=== PATIENT | female | born 1960 | race African-American/Black ===

== ENCOUNTER → 2018-07-08 | Outpatient (CLI) | payer OTHER ==
--- NOTE | 2018-07-09 14:29 | RADIOLOGY REPORT (SQ) ---
EXAM DESCRIPTION: PET CT SKULL/THIGH COMPLETED DATE/TIME: 07/08/2018 8:17 pm REASON FOR STUDY: R91.8 OTHER NONSPECIFIC ABNORMAL FINDING OF LUNG FIELD R91.8 OTHER NONSPECIFIC AB NORMAL FINDING OF LUNG FIELD COMPARISON: Two-view chest 09/10/2015 Report from [facility] CT lung screening 06/26/2018 RADIONUCLIDE AND DOSE: 11.2 mCi F18 FDG The route of agent administration: Intravenous FASTING BLOOD SUGAR: 103 mg/dl CONTRAST TYPE AND DOSE: No CT contrast given. TECHNIQUE: Blood glucose level was verified. Above dose of FDG was injected intravenously. 2-D seg mented attenuation correction images were obtained from the base of the skull to the midthighs. Nonc ontrast CT images were obtained for attenuation correction and fusion with emission images. CT image s were performed without oral or intravenous contrast and are not sensitive for parenchymal lesions. A series of overlapping emission PET images were obtained. Images reviewed and manipulated at [facility] work station by the radiologist. Images stored on PACS. LIMITATIONS: None. FINDINGS: HEAD AND NECK: No areas of abnormal metabolic activity in the soft tissues of the head and neck. CHEST: In the lateral segment right middle lobe, a 2.6 x 2.4 cm spiculated soft tissue density mass i s present highly suspicious for malignancy. The lateral segmental bronchus of the right middle lobe abuts the mass. This mass has SUV of 3.8, suspicious for malignancy. Subcentimeter nodules in the right lung apex on axial images 57-60 are non metabolic. Remainder of the lung parenchyma exhibits changes of obstructive disease. No pleural effusion. No p neumothorax. Right paratracheal 1.5 x 1.2 cm lymph node axial image 57 with SUV of 2. Right paratracheal/precarinal lymph node 1.9 x 1.1 cm axial image 63 with SUV of 2. No hypermetabolic lesion is identified along the cervical esophagus. ABDOMEN AND PELVIS: No areas of abnormal metabolic activity in the abdomen or pelvis. Expected physi ologic activity is present in the genitourinary system and bowel. PROXIMAL LOWER EXTREMITIES: No areas of abnormal metabolic activity in the soft tissues of the lower extremities. BONES: No abnormal metabolic activity in the visualized skeleton. ADDITIONAL CT FINDINGS: Calcified right carotid bifurcation. Bilateral maxillary and ethmoid sinus a ir-fluid levels from sinusitis. Bilateral renal hilar arterial vascular calcifications OTHER: Liver background activity 2.6 SUV. Blood pool background activity 1.7 SUV IMPRESSION: Malignant appearing spiculated mass lateral segment right middle lobe with SUV of 3.8. Lateral segment right middle lobe bronchus abuts the mass. Enlarged right paratracheal lymph nodes with low-grade metabolic uptake worrisome for tumor involveme nt TECHNICAL DOCUMENTATION: JOB ID: [id number] [employer]- All Rights Reserved Reading location - IP/workstation name: [email or web address]
== END ==
LOC: RAD 17:37
PROVIDERS: ATTEND Internal Medicine Medical Oncology
DX: R91.8 Other nonspecific abnormal finding of lung field (principal); R59.9 Enlarged lymph nodes, unspecified; K22.9 Disease of esophagus, unspecified
CPT/HCPCS: 78815; A9552

== ENCOUNTER 2018-07-25 09:32 | Day surgery (SDC) | payer OTHER ==
[2018-07-25 10:17] LABS: HEMATOCRIT 42.6 % (36.0-47.0); MEAN CORPUSCULAR HEMOGLOBIN 35.1 pg (27.0-33.4); MEAN CORPUSCULAR HGB CONC 35.1 g/dL (32.0-36.0); MEAN CORPUSCULAR VOLUME 100 fl (80-97); PLATELET COUNT 234 10^3/uL (150-450); RED BLOOD COUNT 4.26 10^6/uL (3.72-5.28); RED CELL DISTRIBUTION WIDTH 14.2 % (11.5-14.0); WHITE BLOOD COUNT 4.6 10^3/uL (4.0-10.5)
[2018-07-25 10:30] LABS: INTERNATIONAL RATION (INR) 0.91; PROTHROMBIN TIME 12.7 SEC (11.4-15.4)
[2018-07-25 10:36] LABS: BLOOD UREA NITROGEN 11 mg/dL (7-20)
[2018-07-25] MEDS ORDERED: FENTANYL CITRATE INJ/PF 100 MCG/2 ML AMPUL ONE (11:02)
[2018-07-25] MEDS ORDERED: MIDAZOLAM 2 MG/2 ML INJ ONE (11:02)
--- NOTE | 2018-07-25 12:39 | RADIOLOGY REPORT (SQ) ---
EXAM DESCRIPTION: CHEST SINGLE VIEW COMPLETED DATE/TIME: 07/25/2018 12:28 pm REASON FOR STUDY: ABNORMAL FINDING OF LUNG FIELD- POST BIOPSY COMPARISON: 07/08/2018 EXAM PARAMETERS: NUMBER OF VIEWS: One view. TECHNIQUE: Single frontal radiographic view of the chest acquired. RADIATION DOSE: NA LIMITATIONS: None. FINDINGS: LUNGS AND PLEURA: Trace right apical pneumothorax measuring 4 mm maximally. Unchanged rig ht perihilar mass. No new effusion. No new focal airspace disease. MEDIASTINUM AND HILAR STRUCTURES: No masses. Contour normal. HEART AND VASCULAR STRUCTURES: Heart normal in size. Normal vasculature. BONES: No acute findings. HARDWARE: None in the chest. OTHER: No other significant finding. IMPRESSION: Trace right apical pneumothorax post right middle lobe biopsy. TECHNICAL DOCUMENTATION: JOB ID: [id number] [employer]- All Rights Reserved Reading location - IP/workstation name: [email or web address]
--- NOTE | 2018-07-25 14:03 | RADIOLOGY REPORT (SQ) ---
EXAM DESCRIPTION: CT BIOPSY LUNG/MEDIASTINUM; CT NEEDLE PLACEMENT COMPLETED DATE/TIME: 07/25/2018 1:08 pm REASON FOR STUDY: ABNORMAL FINDING OF LUNG FIELD; ABNORMAL FINDING OF LUNG FIELD, LUNG BIOPSY R91.8 COMPARISON: None. TECHNIQUE: CT guided biopsy of the right middle lobe perihilar nodule performed with conscious sedat ion. CT Fluoroscopy Time: 47.[address] scanners at this facility use dose modulation, iterative reconstruction, and/or weight based d osing when appropriate to reduce radiation dose to as low as reasonably achievable (ALARA). [facility]: Dose Right [facility]: CareDose [facility]: Dose Right [facility]: Teradose 4D [facility]: Patient Feed RADIATION DOSE: mGy. FINDINGS: After obtaining informed consent and explaining the risks and benefits of conscious sedati on,the patient agreed to the procedure. Prior to the procedure, a time out was performed to verify th e patient's identity and planned procedure. IV sedation was administered and physician direction by the registered nurse using 1 milligrams of Ve rsed and 50 micrograms of fentanyl, for conscious sedation. Physiologic monitoring was provided befor e, during, and after sedation. The total sedation time was 30 minutes. Documentation face to face time, the performing proceduralist, spent monitoring the patient: [address] scanning was performed to localize the percutaneous site for the biopsy approach. After sterile skin prep and local lidocaine for skin and deep tissue anesthesia, a coaxial biopsy nee dle was used to obtain multiple cores of tissue of the right middle lobe mass. Additional imaging wa s obtained with the biopsy trough across the lesion of interest. The biopsy tissue was submitted to t he lab in formalin. There were no immediate complications. Completion chest x-rays were obtained. Pathology is pending at the time of dictation. IMPRESSION: CT GUIDED BIOPSY OF THE RIGHT MIDDLE LOBE MASS PERFORMED WITHOUT IMMEDIATE COMPLICATION. PATHOLOGY PENDING. COMMENT: Quality ID [id number]: Final reports for procedures using fluoroscopy that document radiation exp osure indices, or exposure time and number of fluorographic images (if radiation exposure indices are not available) Patient medication list reviewed: Yes- Quality ID# [id number]:Eligible professional attests to documenting i n the medical record they obtained, updated, or reviewed the patient's current medications.. TECHNICAL DOCUMENTATION: JOB ID: [id number] Quality ID# [id number]: Final reports with documentation of one or more dose reduction techniques (e.g., Aut omated exposure control, adjustment of the mA and/or kV according to patient size, use of iterative r econstruction technique) 2010 [employer]- All Rights Reserved Reading location - IP/workstation name: [email or web address]
[2018-07-25] MEDS ORDERED: ACETAMINOPHEN 325 MG TABLET ONE (14:10)
[2018-07-25] MEDS ORDERED: ACETAMINOPHEN 325 MG TABLET PO ONE (14:30)
--- NOTE | 2018-07-25 14:45 | RADIOLOGY REPORT (SQ) ---
EXAM DESCRIPTION: CHEST SINGLE VIEW COMPLETED DATE/TIME: 07/25/2018 2:37 pm REASON FOR STUDY: ABNORMAL FINDING OF LUNG FIELD- POST BIOPSY (2 HR FILM) COMPARISON: Same day radiograph EXAM PARAMETERS: NUMBER OF VIEWS: One view. TECHNIQUE: Single frontal radiographic view of the chest acquired. RADIATION DOSE: NA LIMITATIONS: None. FINDINGS: LUNGS AND PLEURA: Decreased conspicuity of previously seen trace apical pneumothorax. No new effusion or airspace disease. MEDIASTINUM AND HILAR STRUCTURES: Stable. HEART AND VASCULAR STRUCTURES: Stable. BONES: No acute findings. HARDWARE: None in the chest. OTHER: No other significant finding. IMPRESSION: No significant pneumothorax post right lung biopsy. TECHNICAL DOCUMENTATION: JOB ID: [id number] [employer]- All Rights Reserved Reading location - IP/workstation name: [email or web address]
[2018-07-25 15:04] VITALS: BP 103/68
== END 2018-07-25 15:00 | disposition home or self-care (01) ==
LOC: RAD 09:32
PROVIDERS: ATTEND Internal Medicine Pulmonary Disease
DX: R91.8 Other nonspecific abnormal finding of lung field (principal); Z79.51 Long term (current) use of inhaled steroids; Z79.899 Other long term (current) drug therapy; F17.210 Nicotine dependence, cigarettes, uncomplicated; J44.9 Chronic obstructive pulmonary disease, unspecified; R13.19 Other dysphagia; R05 Cough
CPT/HCPCS: 36415; 84520; 82565; 85027; 85610; 85730; 88305 ×2; 71045; 77012; 32405; J2250; J3010

== ENCOUNTER → 2018-09-16 | Outpatient (CLI) | payer OTHER ==
--- NOTE | 2018-09-17 09:19 | RADIOLOGY REPORT (SQ) ---
EXAM DESCRIPTION: PET CT SKULL/THIGH COMPLETED DATE/TIME: 09/16/2018 9:08 pm REASON FOR STUDY: (C34.90)MALIGNANT NEOPLASM OF UNSP PART OF UNSP BRONCHUS OR LUNG C34.90 MALIGNANT NEOPLASM OF UNSP PART OF UNSP BRONCHUS OR L COMPARISON: 07/08/2018. RADIONUCLIDE AND DOSE: 10 mCi F18 FDG The route of agent administration: Intravenous FASTING BLOOD SUGAR: 115 mg/dl CONTRAST TYPE AND DOSE: No CT contrast given. TECHNIQUE: Blood glucose level was verified. Above dose of FDG was injected intravenously. 2-D seg mented attenuation correction images were obtained from the base of the skull to the midthighs. Nonc ontrast CT images were obtained for attenuation correction and fusion with emission images. CT image s were performed without oral or intravenous contrast and are not sensitive for parenchymal lesions. A series of overlapping emission PET images were obtained. Images reviewed and manipulated at [facility] work station by the radiologist. Images stored on PACS. LIMITATIONS: None. FINDINGS: HEAD AND NECK: No areas of abnormal metabolic activity in the soft tissues of the head and neck. CHEST: Spiculated mass in the right middle lobe currently measures 2.1 x 2.5 cm, prior measurement 2. 4 x 2.6 cm. Mean SUV 1.98. Prior value 3.8. The subcentimeter nodule in the right upper lobe (axia l series 3, image 57) is unchanged and is not hypermetabolic. The right paratracheal lymph node (axial series 3, image 58) currently measures 0.8 x 1.4 cm with florencio or measurement 1.2 x 1.5 cm. Mean SUV 1.4 with prior value 2.0. The lower right paratracheal lymph node (axial series 3, image 64) currently measures 0.9 x 1.2 cm. Prior measurement 1.1 x 1.9 cm. Mean SUV 1.93. Prior value 2.0. ABDOMEN AND PELVIS: No areas of abnormal metabolic activity in the abdomen or pelvis. Expected physi ologic activity is present in the genitourinary system and bowel. PROXIMAL LOWER EXTREMITIES: No areas of abnormal metabolic activity in the soft tissues of the lower extremities. BONES: No abnormal metabolic activity in the visualized skeleton. ADDITIONAL CT FINDINGS: Fluid in the maxillary sinuses. Coronary artery calcifications. Small umbil ical hernia containing fat. No additional significant findings on the noncontrast CT images. OTHER: Background blood pool activity mean SUV 1.83. Background liver activity mean SUV 2.21. No ot her significant findings. IMPRESSION: 1. INTERVAL IMPROVEMENT. THE MASS IN THE RIGHT MIDDLE LOBE AND THE RIGHT PARATRACHEAL LYMPH NODES APARICIO VE DECREASED IN SIZE AND METABOLIC ACTIVITY HAS ALSO DECREASED. NO NEW FINDINGS. 2. NO OTHER AREAS OF ABNORMAL ACTIVITY. INCIDENTAL CT FINDINGS ABOVE. TECHNICAL DOCUMENTATION: JOB ID: [id number] [employer]- All Rights Reserved Reading location - IP/workstation name: [email or web address]
== END ==
LOC: RAD 16:06
PROVIDERS: ATTEND Internal Medicine Medical Oncology
DX: C34.90 Malignant neoplasm of unspecified part of unspecified bronchus or lung (principal)
CPT/HCPCS: 78815; A9552

== ENCOUNTER 2018-10-06 17:52 | Emergency (ER) | payer OTHER ==
[2018-10-06] MEDS ORDERED: OXYCODONE HCL IR 5 MG TABLET PO ONE (18:12)
--- NOTE | 2018-10-06 18:15 | ER Document Report ---
ED Medical Screen (RME) - General Chief Complaint: Shortness Of Breath Stated Complaint: COUGH,BODY ACHES Time Seen by Provider: 10/06/18 18:03 Primary Care Provider: NIYAH DENSON MD [Primary Care Provider] - Follow up as needed Mode of Arrival: Ambulatory Information source: Patient Notes: Patient presents to the emergency department with complaints of severe pain. Reports being treated for lung cancer. Had a chemo treatment a few weeks ago. Oncologist is Dr. Denson. Patient is very tearful reports she has had joint pain leg pain shoulder pain no complaints of fever vomiting diarrhea. Reports increased cough. She reports that she is been taking a lot of extra strength Tylenol recently. I have greeted and performed a rapid initial assessment of this patient. A comprehensive ED assessment and evaluation of the patient, analysis of test results and completion of the medical decision making process will be conducted by additional ED providers. Dictation of this chart was performed using voice recognition software; therefore, there may be some unintended grammatical errors. TRAVEL OUTSIDE OF THE [place] IN LAST 30 DAYS: No - Related Data Allergies/Adverse Reactions: aspirin [Aspirin] Allergy (Verified 10/06/18 17:54) NSAIDS (Non-Steroidal Anti-Inflamma [Nsaids] Allergy (Verified 10/06/18 17:54) Penicillins Allergy (Verified 10/06/18 17:54) Past Medical History - Past Medical History Cardiac Medical History: Reports: Hx Hypertension Denies: Hx Coronary Artery Disease, Hx Heart Attack Pulmonary Medical History: Reports: Hx Asthma, Hx Bronchitis, Hx COPD, Hx Pneumonia Neurological Medical History: Denies: Hx Cerebrovascular Accident, Hx Seizures Renal/ Medical History: Denies: Hx Peritoneal Dialysis Musculoskeltal Medical History: Reports Hx Arthritis Past Surgical History: Reports: Hx Tubal Ligation - Immunizations Hx Diphtheria, Pertussis, Tetanus Vaccination: Yes History of Influenza Vaccine for 01/2017 - 06/2017 Season: No Physical Exam - Vital signs Vitals: Temp Pulse Resp BP Pulse Ox 98.3 F 114 H 24 H 151/113 H 90 L 10/06/18 18:01 10/06/18 18:01 10/06/18 18:01 10/06/18 18:01 10/06/18 18:01 Course - Vital Signs Vital signs: Temp Pulse Resp BP Pulse Ox 98.3 F 114 H 24 H 151/113 H 90 L 10/06/18 18:01 10/06/18 18:01 10/06/18 18:01 10/06/18 18:01 10/06/18 18:01 Doctor's Discharge - Discharge Referrals: NIYAH DENSON MD [Primary Care Provider] - Follow up as needed
--- NOTE | 2018-10-06 18:45 | RADIOLOGY REPORT (SQ) ---
EXAM DESCRIPTION: CHEST 2 VIEWS COMPLETED DATE/TIME: 10/06/2018 6:30 pm REASON FOR STUDY: lung cancer, increased cough COMPARISON: 07/25/2018 EXAM PARAMETERS: NUMBER OF VIEWS: two views TECHNIQUE: Digital Frontal and Lateral radiographic views of the chest acquired. RADIATION DOSE: NA LIMITATIONS: none FINDINGS: LUNGS AND PLEURA: There is diffuse bilateral interstitial pulmonary opacity and emphysemat ous change. A right perihilar mass is not well appreciated by radiograph. MEDIASTINUM AND HILAR STRUCTURES: No masses or contour abnormalities. HEART AND VASCULAR STRUCTURES: Heart normal size. No evidence for failure. BONES: No acute findings. HARDWARE: None in the chest. OTHER: There has been interval placement of a right chest port catheter, which is positioned with wha t appears to be redundant catheter tubing in the right internal jugular vein and tip projecting over the brachiocephalic vein. IMPRESSION: 1. There is diffuse bilateral interstitial pulmonary opacity and emphysematous change. A right perihilar mass is not well appreciated by radiograph. No acutely superimposed focal airspace opacity. 2. There has been interval placement of a right chest port catheter, which is positioned with what ap pears to be redundant catheter tubing in the right internal jugular vein and tip projecting over the brachiocephalic vein. TECHNICAL DOCUMENTATION: JOB ID: [id number] [employer]- All Rights Reserved Reading location - IP/workstation name: [email or web address]
[2018-10-06 18:57] LABS: HEMATOCRIT 41.6 % (36.0-47.0); HEMOGLOBIN 14.4 g/dL (12.0-15.5); MEAN CORPUSCULAR HEMOGLOBIN 33.6 pg (27.0-33.4); MEAN CORPUSCULAR HGB CONC 34.7 g/dL (32.0-36.0); MEAN CORPUSCULAR VOLUME 97 fl (80-97); PLATELET COUNT 193 10^3/uL (150-450); RED BLOOD COUNT 4.29 10^6/uL (3.72-5.28); RED CELL DISTRIBUTION WIDTH 16.2 % (11.5-14.0); WHITE BLOOD COUNT 18.7 10^3/uL (4.0-10.5)
[2018-10-06] MEDS ORDERED: RINGERS SOLUTION,LACTATED 1,000 ML IV ONE (18:58)
[2018-10-06 19:11] LABS: INTERNATIONAL RATION (INR) 0.94; PROTHROMBIN TIME 12.6 SEC (11.4-15.4)
[2018-10-06 19:13] LABS: ABSOLUTE LYMPHOCYTES# (MANUAL) 7.9 10^3/uL (0.5-4.7); ABSOLUTE MONOCYTES # (MANUAL) 0.6 10^3/uL (0.1-1.4); BASOPHILS % (MANUAL) 0 % (0-2); EOSINOPHILS % (MANUAL) 0 % (0-6); LYMPHOCYTES % (MANUAL) 42 % (13-45); MONOCYTES % (MANUAL) 3 % (3-13); SEGMENTED NEUTROPHILS % (MAN) 55 % (42-78); TOTAL CELLS COUNTED 100
[2018-10-06 19:14] LABS: ANISOCYTOSIS 1+; PLATELET COMMENT ADEQUATE; TOXIC GRANULATION SLIGHT; TOXIC VACUOLATION PRESENT
[2018-10-06] MEDS ORDERED: AZITHROMYCIN INJ 500 MG VIAL IV ONE (19:28)
[2018-10-06] MEDS ORDERED: CEFTRIAXONE INJ 1000 MG VIAL IV ONE (19:28)
--- NOTE | 2018-10-06 19:32 | ER Document Report ---
ED General - General Chief Complaint: Shortness Of Breath Stated Complaint: COUGH,BODY ACHES Time Seen by Provider: 10/06/18 18:03 Primary Care Provider: NIYAH DENSON MD [Primary Care Provider] - Follow up as needed Mode of Arrival: Ambulatory TRAVEL OUTSIDE OF THE [place] IN LAST 30 DAYS: No - HPI Notes: Patient is a 57-year-old female that presents to the emergency department for chief complaint of cough and body pain. Patient has a recent diagnosis of lung cancer and has had one chemotherapy treatment. She is being treated by Dr. Denson. Patient's next chemotherapy treatment is on October 09. She presents today complaining of diffuse myalgias and cough. Her muscle aches started 5 days ago and was mostly in her upper extremities and now has progressed to her lower extremities. She describes it as a crampy flulike sensation. She denies fevers and chills. She does report increased sputum production and trace hemoptysis. Patient states her hemoptysis has improved since having the chemotherapy. She denies any nausea, vomiting, abdominal pain, diarrhea, urinary frequency and dysuria. Patient states she has been taking "a lot" of Tylenol at home for her pain. She does not have any prescription pain medication at this time. Past Medical History: Lung cancer Past Surgical History: Reviewed in chart Social History: Denies current tobacco, alcohol or drug use Family History: Reviewed and noncontributory for presenting illness Allergies: Reviewed, see documented allergy list. REVIEW OF SYSTEMS: CONSTITUTIONAL : No fever No chills No diaphoresis EENT: No vision changes congestion No sore throat CARDIOVASCULAR: No chest pain No palpitations RESPIRATORY: shortness of breath cough No difficulty breathing GASTROINTESTINAL: No abdominal pain No nausea No vomiting No diarrhea GENITOURINARY: No dysuria No hematuria No difficulty urinating MUSCULOSKELETAL: No back pain leg pain arm pain SKIN: No rashes No lesions LYMPHATIC: No swollen, enlarged glands. NEUROLOGICAL: No lightheadedness No headache No weakness No paresthesias PSYCHIATRIC: No anxiety No depression PHYSICAL EXAMINATION: Vital signs reviewed, nursing noted reviewed. GENERAL: Well-appearing, obese and in no acute distress. HEAD: Atraumatic, normocephalic. EYES: Eyes appear normal, extraocular movements intact, sclera anicteric, conjunctiva are normal. ENT: nares patent, oropharynx clear without exudates. Moist mucous membranes. NECK: Normal range of motion, supple without lymphadenopathy LUNGS: Breath sounds diminished with expiratory wheezing to auscultation bilaterally and equal. Tachypnea without accessory muscle use HEART: Tachycardic rate and regular rhythm without murmurs ABDOMEN: Soft, nontender, normoactive bowel sounds. No rebound, guarding, or rigidity. No masses appreciated. EXTREMITIES: Nontender, good range of motion, no pitting or edema. NEUROLOGICAL: No focal neurological deficits. Moves all extremities spontaneously Motor and sensory grossly intact on exam. PSYCH: Tearful, anxious SKIN: Warm, Dry, normal turgor, no rashes or lesions noted on exposed skin - Related Data Allergies/Adverse Reactions: aspirin [Aspirin] Allergy (Verified 10/06/18 17:54) NSAIDS (Non-Steroidal Anti-Inflamma [Nsaids] Allergy (Verified 10/06/18 17:54) Penicillins Allergy (Verified 10/06/18 17:54) Past Medical History - General Information source: Patient - Social History Smoking Status: Unknown if Ever Smoked Family History: Reviewed & Not Pertinent Patient has suicidal ideation: No Patient has homicidal ideation: No - Past Medical History Cardiac Medical History: Reports: Hx Hypertension Denies: Hx Coronary Artery Disease, Hx Heart Attack Pulmonary Medical History: Reports: Hx Asthma, Hx Bronchitis, Hx COPD, Hx Pneumonia Neurological Medical History: Denies: Hx Cerebrovascular Accident, Hx Seizures Renal/ Medical History: Denies: Hx Peritoneal Dialysis Musculoskeletal Medical History: Reports Hx Arthritis Past Surgical History: Reports: Hx Tubal Ligation - Immunizations Hx Diphtheria, Pertussis, Tetanus Vaccination: Yes Physical Exam - Vital signs Vitals: Temp Pulse Resp BP Pulse Ox 98.3 F 114 H 24 H 151/113 H 90 L 10/06/18 18:01 10/06/18 18:01 10/06/18 18:01 10/06/18 18:01 10/06/18 18:01 Course - Re-evaluation Re-evalutation: 10/06/18 19:31 Vitals reviewed. Nursing notes reviewed. Patient presented tachycardic and tachypneic. Her blood pressure is stable. She had blood work ordered in triage which shows a leukocytosis of 18. Patient is meeting sepsis criteria. Her chest x-ray shows no acute cardio pulmonary process but does show the changes consistent with her underlying lung cancer. Given her symptoms and leukocytosis I am concerned for community-acquired pneumonia. She will be started on broad- spectrum antibiotics and given IV fluids. She did receive oxycodone IR in triage and states that has significantly improved her pain. Patient will be placed on telemetry monitoring. I have added blood culture and lactate for concern of sepsis. 10/06/18 21:15 Patient's lactic acid is negative. Blood cultures have been obtained. Her ur inalysis is negative. Patient has continued to be mildly tachycardic despite IV fluids. Given her leukocytosis, tachycardia and immunosuppression on chemotherapy I did recommend admission to the hospital for antibiotics and close monitoring. Patient states she has family in town and does not wish to be admitted to the hospital. She understands the risk of leaving and the possibility that she may continue to get worse. She states she will see Dr. Denson on Monday morning for close outpatient reevaluation and will return tomorrow if she is feeling worse. Patient will be started on Levaquin for outpatient management to cover possible underlying infection. I did encourage her to drink a substantial amount of fluid. She will be giving oxycodone IR for breakthrough pain. Patient advised to return to the emergency room at any point for further management. Patient does have capacity to make medical decisions and understands her risks of leaving AGAINST MEDICAL ADVICE. Laboratory 10/06/18 10/06/18 10/06/18 18:35 18:35 18:35 WBC 18.7 H RBC 4.29 Hgb 14.4 Hct 41.6 MCV 97 MCH 33.6 H MCHC 34.7 RDW 16.2 H Plt Count 193 Total Counted 100 Seg Neutrophils % Not Reportable Seg Neuts % (Manual) 55 Lymphocytes % Not Reportable Lymphocytes % (Manual) 42 Monocytes % Not Reportable Monocytes % (Manual) 3 Eosinophils % Not Reportable Eosinophils % (Manual) 0 Basophils % Not Reportable Basophils % (Manual) 0 Absolute Neutrophils Not Reportable Abs Neuts (Manual) 10.3 H Absolute Lymphocytes Not Reportable Abs Lymphs (Manual) 7.9 H Absolute Monocytes Not Reportable Abs Monocytes (Manual) 0.6 Absolute Eosinophils Not Reportable Absolute Eos (Manual) 0.0 Absolute Basophils Not Reportable Abs Basophils (Manual) 0.0 Toxic Granulation SLIGHT Toxic Vacuolation PRESENT Platelet Comment ADEQUATE Anisocytosis 1+ PT 12.6 INR 0.94 VBG pH VBG pCO2 VBG HCO3 VBG Base Excess Sodium Cancelled Potassium Cancelled Chloride Cancelled Carbon Dioxide Cancelled Anion Gap Cancelled BUN Cancelled Creatinine Cancelled Est GFR ( Amer) Cancelled Est GFR (Non-Af Amer) Cancelled Glucose Cancelled Lactic Acid Calcium Cancelled Total Bilirubin Cancelled Direct Bilirubin Cancelled Neonat Total Bilirubin Cancelled Neonat Direct Bilirubin Cancelled Neonat Indirect Bili Cancelled AST Cancelled ALT Cancelled Alkaline Phosphatase Cancelled Total Protein Cancelled Albumin Cancelled Urine Color Urine Appearance Urine pH Ur Specific [place] Urine Protein Urine Glucose (UA) Urine Ketones Urine Blood Urine Nitrite Urine Bilirubin Urine Urobilinogen Ur Leukocyte Esterase Urine WBC (Auto) Urine RBC (Auto) Urine Bacteria (Auto) Urine Mucus (Auto) Urine Ascorbic Acid Acetaminophen Cancelled 10/06/18 10/06/18 10/06/18 19:46 19:46 19:46 WBC RBC Hgb Hct MCV MCH MCHC RDW Plt Count Total Counted Seg Neutrophils % Seg Neuts % (Manual) Lymphocytes % Lymphocytes % (Manual) Monocytes % Monocytes % (Manual) Eosinophils % Eosinophils % (Manual) Basophils % Basophils % (Manual) Absolute Neutrophils Abs Neuts (Manual) Absolute Lymphocytes Abs Lymphs (Manual) Absolute Monocytes Abs Monocytes (Manual) Absolute Eosinophils Absolute Eos (Manual) Absolute Basophils Abs Basophils (Manual) Toxic Granulation Toxic Vacuolation Platelet Comment Anisocytosis PT INR VBG pH 7.43 H VBG pCO2 30.6 L VBG HCO3 20.0 VBG Base Excess -3.0 Sodium 132.1 L Potassium 4.1 Chloride 98 Carbon Dioxide 22 Anion Gap 12 BUN 6 L Creatinine 0.42 L Est GFR ( Amer) > 60 Est GFR (Non-Af Amer) > 60 Glucose 94 Lactic Acid 1.6 Calcium 9.8 Total Bilirubin 0.3 Direct Bilirubin 0.3 Neonat Total Bilirubin Not Reportable Neonat Direct Bilirubin Not Reportable Neonat Indirect Bili Not Reportable AST 35 ALT 16 Alkaline Phosphatase 163 H Total Protein 7.7 Albumin 3.9 Urine Color Urine Appearance Urine pH Ur Specific [place] Urine Protein Urine Glucose (UA) Urine Ketones Urine Blood Urine Nitrite Urine Bilirubin Urine Urobilinogen Ur Leukocyte Esterase Urine WBC (Auto) Urine RBC (Auto) Urine Bacteria (Auto) Urine Mucus (Auto) Urine Ascorbic Acid Acetaminophen < 10 L 10/06/18 20:15 WBC RBC Hgb Hct MCV MCH MCHC RDW Plt Count Total Counted Seg Neutrophils % Seg Neuts % (Manual) Lymphocytes % Lymphocytes % (Manual) Monocytes % Monocytes % (Manual) Eosinophils % Eosinophils % (Manual) Basophils % Basophils % (Manual) Absolute Neutrophils Abs Neuts (Manual) Absolute Lymphocytes Abs Lymphs (Manual) Absolute Monocytes Abs Monocytes (Manual) Absolute Eosinophils Absolute Eos (Manual) Absolute Basophils Abs Basophils (Manual) Toxic Granulation Toxic Vacuolation Platelet Comment Anisocytosis PT INR VBG pH VBG pCO2 VBG HCO3 VBG Base Excess Sodium Potassium Chloride Carbon Dioxide Anion Gap BUN Creatinine Est GFR ( Amer) Est GFR (Non-Af Amer) Glucose Lactic Acid Calcium Total Bilirubin Direct Bilirubin Neonat Total Bilirubin Neonat Direct Bilirubin Neonat Indirect Bili AST ALT Alkaline Phosphatase Total Protein Albumin Urine Color COLORLESS Urine Appearance CLEAR Urine pH 5.0 Ur Specific [place] 1.003 Urine Protein NEGATIVE Urine Glucose (UA) NEGATIVE Urine Ketones NEGATIVE Urine Blood SMALL H Urine Nitrite NEGATIVE Urine Bilirubin NEGATIVE Urine Urobilinogen NEGATIVE Ur Leukocyte Esterase NEGATIVE Urine WBC (Auto) 0 Urine RBC (Auto) 0 Urine Bacteria (Auto) TRACE Urine Mucus (Auto) RARE Urine Ascorbic Acid NEGATIVE Acetaminophen Chest X-Ray 10/06/18 18:14 IMPRESSION: 1. There is diffuse bilateral interstitial pulmonary opacity and emphysematous change. A right perihilar mass is not well appreciated by radiograph. No acutely superimposed focal airspace opacity. 2. There has been interval placement of a right chest port catheter, which is positioned with what appears to be redundant catheter tubing in the right internal jugular vein and tip projecting over the brachiocephalic vein. - Vital Signs Vital signs: Temp Pulse Resp BP Pulse Ox 98.3 F 114 H 15 109/80 92 10/06/18 18:01 10/06/18 18:01 10/06/18 20:17 10/06/18 20:17 10/06/18 20:17 - Laboratory Result Diagrams: 10/06/18 18:35 10/06/18 19:46 Laboratory results interpreted by me: 10/06/18 10/06/18 10/06/18 18:35 19:46 19:46 WBC 18.7 H MCH 33.6 H RDW 16.2 H Abs Neuts (Manual) 10.3 H Abs Lymphs (Manual) 7.9 H VBG pH 7.43 H VBG pCO2 30.6 L Sodium 132.1 L BUN 6 L Creatinine 0.42 L Alkaline Phosphatase 163 H Urine Blood Acetaminophen < 10 L 10/06/18 20:15 WBC MCH RDW Abs Neuts (Manual) Abs Lymphs (Manual) VBG pH VBG pCO2 Sodium BUN Creatinine Alkaline Phosphatase Urine Blood SMALL H Acetaminophen Discharge - Discharge Clinical Impression: Cough, Shortness of breath, Tachycardia Leukocytosis Qualifiers: Leukocytosis type: unspecified Qualified Code(s): D72.829 - Elevated white blood cell count, unspecified Condition: Stable Disposition: AGAINST MEDICAL ADVICE Instructions: Pneumonia ([facility]) Additional Instructions: It was advised that you be admitted to the hospital today for IV antibiotics and close monitoring of a likely underlying pneumonia. You can return to the emergency room at any point time for further management. Please return to the emergency room if you develop any increased shortness of breath, cough, fevers or worsening myalgias. Please follow with Dr. Dneson as soon as available take all medications as prescribed Prescriptions: Levofloxacin [Levaquin 750 mg Tablet] 750 mg PO DAILY #7 tablet Referrals: NIYAH DENSON MD [Primary Care Provider] - 10/08/18
[2018-10-06 19:59] LABS: VENOUS BLOOD PCO2 30.6 mmHg (35-63); VENOUS BLOOD PH 7.43 (7.30-7.42)
[2018-10-06] MEDS ORDERED: CEFAZOLIN 1 GM/D5W RTU 1 GM/50 ML RTUPB IV ONE (20:19)
[2018-10-06 20:21] LABS: ALANINE AMINOTRANSFERASE 16 U/L (9-52); ALBUMIN 3.9 g/dL (3.5-5.0); ALKALINE PHOSPHATASE 163 U/L (38-126); ANION GAP 12 (5-19); ASPARTATE AMINO TRANSFERASE 35 U/L (14-36); BILIRUBIN,DIRECT 0.3 mg/dL (0.0-0.4); BILIRUBIN,TOTAL 0.3 mg/dL (0.2-1.3); BLOOD UREA NITROGEN 6 mg/dL (7-20); CALCIUM 9.8 mg/dL (8.4-10.2); CARBON DIOXIDE 22 mmol/L (22-30); CHLORIDE 98 mmol/L (98-107); GLUCOSE 94 mg/dL (75-110); POTASSIUM 4.1 mmol/L (3.6-5.0); SODIUM 132.1 mmol/L (137-145); TOTAL PROTEIN 7.7 g/dL (6.3-8.2)
[2018-10-06 20:22] VITALS: BP 109/80
[2018-10-06 20:22] LABS: ACETAMINOPHEN < 10 ug/mL (10-30)
[2018-10-06 20:35] LABS: APPEARANCE,URINE CLEAR; BILIRUBIN,URINE NEGATIVE (NEGATIVE); COLOR,URINE COLORLESS; GLUCOSE, URINE NEGATIVE (NEGATIVE); KETONES,URINE NEGATIVE (NEGATIVE); LEUKOCYTE ESTERASE,URINE NEGATIVE (NEGATIVE); NITRITE,URINE NEGATIVE (NEGATIVE); PROTEIN,URINE NEGATIVE (NEGATIVE); URINE SPECIFIC GRAVITY 1.003; UROBILINOGEN,URINE NEGATIVE mg/dL (<2.0)
--- NOTE | 2018-10-07 00:03 | EKG REPORT ---
SEVERITY:- ABNORMAL ECG - SINUS RHYTHM PROBABLE INFERIOR INFARCT, AGE INDETERMINATE : Confirmed by: Aileen Munoz 07-Oct-2018 00:02:30
== END 2018-10-06 22:01 | disposition left against medical advice (07) ==
LOC: ER 17:52
DX: R05 Cough (principal); R06.82 Tachypnea, not elsewhere classified; R00.0 Tachycardia, unspecified; D72.829 Elevated white blood cell count, unspecified; M79.10 Myalgia, unspecified site; C34.90 Malignant neoplasm of unspecified part of unspecified bronchus or lung; Z79.899 Other long term (current) drug therapy; I10 Essential (primary) hypertension; J44.9 Chronic obstructive pulmonary disease, unspecified
CPT/HCPCS: 93005; 36415; 87040; 87086; 80307; 85025; 85610; 80053; 81001; 82803; 83605; 71046; 93010; J0696; J7120; J0456

== ENCOUNTER → 2019-01-30 | Outpatient (CLI) | payer OTHER ==
--- NOTE | 2019-01-30 14:05 | RADIOLOGY REPORT (SQ) ---
EXAM DESCRIPTION: CT CHEST WITH COMPLETED DATE/TIME: 01/30/2019 1:39 pm REASON FOR STUDY: C34.11 MALIGNANT NEOPLASM OF UPPER LOBE, RIGHT BRONCHUS OR LUNG C34.11 MALIGNANT NEOPLASM OF UPPER LOBE, RIGHT BRONCHUS OR L COMPARISON: PET-CT dated 09/16/2018 TECHNIQUE: CT scan of the chest performed using helical scanning technique with dynamic intravenous contrast injection. Images reviewed with lung, soft tissue and bone windows. Reconstructed coronal and sagittal MPR and MIP images reviewed. All images stored on PACS. All CT scanners at this facility use dose modulation, iterative reconstruction, and/or weight based d osing when appropriate to reduce radiation dose to as low as reasonably achievable ([place]). [facility]: Dose Right [facility]: CareDose [facility]: Dose Right [facility]: Teradose 4D [facility]: [employer] CONTRAST TYPE AND DOSE: 80 mL Omnipaque 350 RENAL FUNCTION: Creatinine 0.6 RADIATION DOSE: . LIMITATIONS: None. FINDINGS: LUNGS AND PLEURA: There are bilateral emphysematous changes. There right perihilar mass p reviously described has decreased in size and now measures 1.5 x 1.5 cm. This is best demonstrated o n series 4, image 61. There is a stable approximately 5 to 6 mm nodule in the right upper lobe demon strated on series 4, image 28. There is a small stable nodule demonstrated posteriorly on series 4, image 32. This measures approximately 4 mm in greatest diameter. There is a new 5 mm nodule at the level of the gale on the right. This is best demonstrated on 45. There is a new nodules in the ri ght upper lobe best demonstrated on series 4, image 55. This measures 7.2 mm in diameter. This lies just above the major fissure. Stable subpleural nodule in the left base demonstrated on series 4, i mage 68. This measures 9 mm in diameter. There is a new 8 mm nodule in the right base best demonstr ated on series 4, image 89. HILAR AND MEDIASTINAL STRUCTURES: Enlarged left hilar nodes. Largest measures 1.9 cm. This could po ssibly be 2 nodes adjacent to each other. Prominent pretracheal node measured 2 cm. This is best de monstrated on series 2, image 20. A was present previously but has increased in size. HEART AND VASCULAR STRUCTURES: No aneurysm or dissection. Moderate coronary artery calcification. HARDWARE: [id number] is in place. UPPER ABDOMEN: No significant findings. Limited exam. THYROID AND OTHER SOFT TISSUES: No masses. No adenopathy. BONES: No significant finding. OTHER: No other significant finding. IMPRESSION: 1. Bilateral emphysematous changes not significantly changed from prior study. 2. Numerous small indeterminate right-sided pulmonary nodules. These will need continued surveillan ce. Metastatic disease cannot be excluded. Some are new from prior study. Some are unchanged. 3. Suspect increasing left hilar as well as mediastinal adenopathy. TECHNICAL DOCUMENTATION: JOB ID: [id number] Quality ID # [id number]: Final reports with documentation of one or more dose reduction techniques (e.g., Au tomated exposure control, adjustment of the mA and/or kV according to patient size, use of iterative reconstruction technique) 2010 [employer]- All Rights Reserved Reading location - IP/workstation name: [email or web address]
== END ==
LOC: RAD 13:05
PROVIDERS: ATTEND Internal Medicine
DX: C34.11 Malignant neoplasm of upper lobe, right bronchus or lung (principal); J43.9 Emphysema, unspecified; R91.8 Other nonspecific abnormal finding of lung field
CPT/HCPCS: 71260; 82565

== ENCOUNTER 2019-09-04 11:06 | Inpatient (IN) | payer OTHER ==
[2019-09-04] MEDS ORDERED: MORPHINE SULFATE 10 MG/ML INJ IV ONE (11:24)
[2019-09-04 11:51] LABS: VENOUS BLOOD BASE EXCESS 3.6 mmol/L; VENOUS BLOOD HCO3 30.1 mmol/L (20-32); VENOUS BLOOD PCO2 52.5 mmHg (35-63); VENOUS BLOOD PH 7.38 (7.30-7.42)
[2019-09-04 11:59] LABS: HEMATOCRIT 45.2 % (36.0-47.0); HEMOGLOBIN 15.3 g/dL (12.0-15.5); MEAN CORPUSCULAR HEMOGLOBIN 33.5 pg (27.0-33.4); MEAN CORPUSCULAR HGB CONC 33.8 g/dL (32.0-36.0); MEAN CORPUSCULAR VOLUME 99 fl (80-97); PLATELET COUNT 160 10^3/uL (150-450); RED BLOOD COUNT 4.56 10^6/uL (3.72-5.28); RED CELL DISTRIBUTION WIDTH 17.1 % (11.5-14.0); WHITE BLOOD COUNT 8.9 10^3/uL (4.0-10.5)
--- NOTE | 2019-09-04 12:06 | ER Document Report ---
ED Extremity Problem, Lower - General Chief Complaint: Leg Pain Stated Complaint: RIGHT LEG PAIN Time Seen by Provider: 09/04/19 11:18 Primary Care Provider: GALA FINNEY MD [Primary Care Provider] - Follow up as needed Information source: Patient TRAVEL OUTSIDE OF THE [place] IN LAST 30 DAYS: No - HPI Notes: Patient presents with right lower extremity pain. She states she has had this pain for approximately 3 days. She states she gets intermittent pain and swelling in this leg however over the last 3 days it is been severe. It radiates up the right leg. Is worse with movement and better with rest. She is been unable to bear weight on this leg. She also states she notices that it is swollen and red. She denies any fevers. She states she does have a chronic cough and has a diagnosis of lung cancer. She states the pain in the right leg is an aching and burning sensation. She denies any new shortness of breath - Related Data Allergies/Adverse Reactions: aspirin [Aspirin] Allergy (Verified 10/06/18 17:54) NSAIDS (Non-Steroidal Anti-Inflamma [Nsaids] Allergy (Verified 10/06/18 17:54) Penicillins Allergy (Verified 10/06/18 17:54) Past Medical History - General Information source: Patient - Social History Smoking Status: Former Smoker Frequency of alcohol use: None Drug Abuse: None Family History: Reviewed & Not Pertinent Patient has homicidal ideation: No - Past Medical History Cardiac Medical History: Reports: Hx Hypertension Denies: Hx Coronary Artery Disease, Hx Heart Attack Pulmonary Medical History: Reports: Hx Asthma, Hx Bronchitis, Hx COPD, Hx Pneumonia Neurological Medical History: Denies: Hx Cerebrovascular Accident, Hx Seizures Renal/ Medical History: Denies: Hx Peritoneal Dialysis Musculoskeletal Medical History: Reports Hx Arthritis Past Surgical History: Reports: Hx Tubal Ligation - Immunizations Hx Diphtheria, Pertussis, Tetanus Vaccination: Yes Review of Systems - Review of Systems Constitutional: denies: Chills, Fever Cardiovascular: denies: Chest pain, Palpitations Respiratory: Cough. denies: Short of breath -: Yes All other systems reviewed and negative Physical Exam - Vital signs Vitals: Resp Pulse Ox 21 H 94 09/04/19 11:12 09/04/19 11:12 Interpretation: Tachycardic - General General appearance: Appears well, Alert - HEENT Head: Normocephalic, Atraumatic Eyes: Normal Pupils: PERRL - Respiratory Respiratory status: No respiratory distress Chest status: Nontender Breath sounds: Normal Chest palpation: Normal - Cardiovascular Rhythm: Tachycardia Heart sounds: Normal auscultation Murmur: No - Abdominal Inspection: Normal Distension: No distension Bowel sounds: Normal Tenderness: Nontender Organomegaly: No organomegaly - Back Back: Normal, Nontender - Extremities General upper extremity: Normal inspection, Nontender, Normal color, Normal ROM, Normal temperature General lower extremity: Tender - Right lower extremity has diffuse erythema, induration, warmth, tenderness to palpation from the knee distally., Edema, Normal color, Normal temperature. No: Hannah's sign - Neurological Neuro grossly intact: Yes Cognition: Normal Orientation: AAOx4 Nilda Coma Scale Eye Opening: Spontaneous Nilda Coma Scale Verbal: Oriented Nilda Coma Scale Motor: Obeys Commands [place] Coma Scale Total: 15 Speech: Normal Motor strength normal: LUE, RUE, LLE, RLE Sensory: Normal - Psychological Associated symptoms: Normal affect, Normal mood - Skin Skin Temperature: Warm Skin Moisture: Dry Skin Color: Erythema Course - Re-evaluation Re-evalutation: 09/04/19 12:58 Patient presents with severe right lower extremity pain redness induration consistent with cellulitis. I will treat the patient with antibiotics and have her admitted to the hospital. There is also a chance she may have an underlying DVT and at this time a Doppler study is pending - Vital Signs Vital signs: Temp Pulse Resp BP Pulse Ox 97.7 F 120 H 28 H 103/63 95 09/04/19 11:57 09/04/19 11:57 09/04/19 12:01 09/04/19 12:01 09/04/19 12:07 - Laboratory Result Diagrams: 09/04/19 11:35 09/04/19 11:35 Laboratory results interpreted by me: 09/04/19 09/04/19 09/04/19 11:35 11:35 12:10 MCV 99 H MCH 33.5 H RDW 17.1 H Seg Neuts % (Manual) 88 H Band Neutrophils % 6 H Lymphocytes % (Manual) 3 L Monocytes % (Manual) 2 L Abs Neuts (Manual) 8.4 H Abs Lymphs (Manual) 0.4 L PT 15.9 H Sodium 132.2 L Chloride 97 L BUN 23 H Glucose 135 H AST 57 H Albumin 3.2 L - Diagnostic Test Radiology reviewed: Image reviewed, Reports reviewed - EKG Interpretation by Me EKG shows normal: Sinus rhythm Rate: Tachycardia - 117 Rhythm: NSR [place]/QRS: No: Right axis deviation, Left axis deviation Discharge - Discharge Clinical Impression: Cellulitis of right lower extremity Lung cancer Qualifiers: Laterality: unspecified laterality Lung location: unspecified part of lung Qualified Code(s): C34.90 - Malignant neoplasm of unspecified part of unspecifi ed bronchus or lung Condition: Serious Disposition: ADMITTED INPATIENT Admitting Provider: Serina (Hospitalist) Unit Admitted: Medical Floor Referrals: GALA FINNEY MD [Primary Care Provider] - Follow up as needed
[2019-09-04 12:27] LABS: ALBUMIN 3.2 g/dL (3.5-5.0); ALKALINE PHOSPHATASE 118 U/L (38-126); ANION GAP 6 (5-19); ASPARTATE AMINO TRANSFERASE 57 U/L (14-36); BILIRUBIN,DIRECT 0.2 mg/dL (0.0-0.4); BILIRUBIN,TOTAL 0.8 mg/dL (0.2-1.3); BLOOD UREA NITROGEN 23 mg/dL (7-20); CALCIUM 8.8 mg/dL (8.4-10.2); CARBON DIOXIDE 29 mmol/L (22-30); CHLORIDE 97 mmol/L (98-107); GLUCOSE 135 mg/dL (75-110); POTASSIUM 3.9 mmol/L (3.6-5.0); TOTAL PROTEIN 6.8 g/dL (6.3-8.2)
[2019-09-04 12:33] LABS: ABSOLUTE LYMPHOCYTES# (MANUAL) 0.4 10^3/uL (0.5-4.7); ABSOLUTE MONOCYTES # (MANUAL) 0.2 10^3/uL (0.1-1.4); BAND NEUTROPHILS % (MANUAL) 6 % (3-5); BASOPHILS % (MANUAL) 0 % (0-2); EOSINOPHILS % (MANUAL) 0 % (0-6); LYMPHOCYTES % (MANUAL) 3 % (13-45); MONOCYTES % (MANUAL) 2 % (3-13); SEGMENTED NEUTROPHILS % (MAN) 88 % (42-78); TOTAL CELLS COUNTED 100
[2019-09-04 12:34] LABS: ANISOCYTOSIS 1+; PLATELET COMMENT ADEQUATE; TOXIC VACUOLATION PRESENT
[2019-09-04 12:48] LABS: INTERNATIONAL RATION (INR) 1.26; PROTHROMBIN TIME 15.9 SEC (11.4-15.4)
[2019-09-04] MEDS ORDERED: VANCOMYCIN HCL INJ 1000 MG VIAL IV ONE (12:50)
[2019-09-04] MEDS ORDERED: VANCOMYCIN HCL 0 MG in DEXTROSE 5%-WATER 250 ML IV NR (13:30)
--- NOTE | 2019-09-04 13:50 | PDOC H&P ---
History of Present Illness Admission Date/PCP: 09/04/19 13:23 GALA FINNEY MD History of Present Illness: DYLAN SWARTZ is a 58 year old female with a history of lung cancer, COPD, and opiate dependence who presents with a 3-day history of right leg swelling. She says she was told that she had scabies and was given some treatment for it but she said it was very itchy and she has been scratching at her leg a lot. She said her left leg is been bothering her some but not to the extent that her right leg has been bothering her. She is noticed swelling in the leg for about 3 days. She is not noticed any exudates. No fevers. She has not had any treatment for it yet. She comes to the emergency department to be evaluated. She has erythema and swelling proximal to the knee all the way down to her foot. She said it hurts to bear weight on it. Past Medical History Cardiac Medical History: Reports: Hypertension Denies: Coronary Artery Disease, Myocardial Infarction Pulmonary Medical History: Reports: Asthma, Bronchitis, Chronic Obstructive Pulmonary Disease (COPD), Pneumonia Neurological Medical History: Denies: Seizures Musculoskeltal Medical History: Reports: Arthritis Hematology: Reports: Anemia Past Surgical History Past Surgical History: Reports: Tubal Ligation Social History Smoking Status: Former Smoker Frequency of Alcohol Use: Social Hx Recreational Drug Use: Yes Hx Prescription Drug Abuse: Yes Family History Family History: Reviewed & Not Pertinent Parental Family History Reviewed: Yes Children Family History Reviewed: Yes Sibling(s) Family History Reviewed.: Yes Medication/Allergy Home Medications: Albuterol Sulfate [Proair HFA] 1 puff DAILY PRN 09/11/15 Fluticasone/Salmeterol [Advair 500-50 Diskus 14 Dose/Diskus] 1 puff NASL Q12 07/25/18 Levofloxacin [Levaquin 750 mg Tablet] 750 mg PO DAILY #7 tablet 10/06/18 Oxycodone HCl [Oxycontin Ir 5 Mg Tablet] 1 mg PO Q4H PRN #15 tablet 10/06/18 Allergies/Adverse Reactions: aspirin [Aspirin] Allergy (Verified 10/06/18 17:54) NSAIDS (Non-Steroidal Anti-Inflamma [Nsaids] Allergy (Verified 10/06/18 17:54) Penicillins Allergy (Verified 06/29/19 17:54) Review of Systems All systems: reviewed and no additional remarkable complaints except as stated - All systems were reviewed and were negative except as noted in HPI Physical Exam Vital Signs: Temp Pulse Resp BP Pulse Ox 97.7 F 120 H 28 H 103/63 95 09/04/19 11:57 09/04/19 11:57 09/04/19 12:01 09/04/19 12:01 09/04/19 12:07 Intake & Output 09/03/19 09/04/19 09/05/19 06:59 06:59 06:59 Weight 89.3 kg General appearance: PRESENT: no acute distress, cooperative, disheveled, morbidl y obese, other - Voice is very hoarse and gravelly Head exam: PRESENT: atraumatic, normocephalic Eye exam: PRESENT: EOMI, PERRLA. ABSENT: conjunctival injection, scleral icterus Ear exam: PRESENT: normal external ear exam Mouth exam: PRESENT: dry mucosa, neck supple Teeth exam: PRESENT: poor dentation Throat exam: ABSENT: post pharyngeal erythema Neck exam: PRESENT: full ROM. ABSENT: carotid bruit, JVD, lymphadenopathy, meningismus, tenderness, thyromegaly Respiratory exam: PRESENT: decreased breath sounds, symmetrical, unlabored. ABSENT: accessory muscle use, chest wall tenderness, crackles, prolonged expiratory phas, tachypnea, wheezes Cardiovascular exam: PRESENT: RRR, +S1, +S2 Pulses: PRESENT: normal carotid pulses Vascular exam: PRESENT: normal capillary refill GI/Abdominal exam: PRESENT: normal bowel sounds, soft. ABSENT: guarding, rebound, tenderness Extremities exam: PRESENT: pedal edema - Right foot, tenderness - Right lower extremity, +2 edema - Right lower extremity. ABSENT: calf tenderness, clubbing Musculoskeletal exam: PRESENT: normal inspection. ABSENT: deformity Neurological exam: PRESENT: alert, awake, oriented to person, oriented to place, oriented to situation, CN II-XII grossly intact. ABSENT: motor sensory deficit Psychiatric exam: PRESENT: appropriate affect, normal mood Skin exam: PRESENT: other - She has numerous scabs on her extremities, most of them are very small. Most notably, she has several areas on the lower extremity which show small excoriations in various stages of healing. Several of them are grouped into linear patterns that seem to be more healed distally and less healed proximally. She has 1 long scabbed area in a linear fashion on the lateral aspect of the right knee. She has swelling and erythema that goes from the foot proximal to the knee. Results Laboratory Results: 09/04/19 11:35 09/04/19 11:35 09/04/19 09/04/19 09/04/19 11:35 11:35 11:35 WBC 8.9 RBC 4.56 Hgb 15.3 Hct 45.2 MCV 99 H MCH 33.5 H MCHC 33.8 RDW 17.1 H Plt Count 160 Seg Neutrophils % Not Reportable VBG pH 7.38 VBG pCO2 52.5 VBG HCO3 30.1 VBG Base Excess 3.6 Sodium 132.2 L Potassium 3.9 Chloride 97 L Carbon Dioxide 29 Anion Gap 6 BUN 23 H Creatinine 0.70 Est GFR ( Amer) > 60 Glucose 135 H Lactic Acid Calcium 8.8 Total Bilirubin 0.8 AST 57 H Alkaline Phosphatase 118 Total Protein 6.8 Albumin 3.2 L 09/04/19 11:35 WBC RBC Hgb Hct MCV MCH MCHC RDW Plt Count Seg Neutrophils % VBG pH VBG pCO2 VBG HCO3 VBG Base Excess Sodium Potassium Chloride Carbon Dioxide Anion Gap BUN Creatinine Est GFR ( Amer) Glucose Lactic Acid 1.3 Calcium Total Bilirubin AST Alkaline Phosphatase Total Protein Albumin Assessment and Plan - Diagnosis (1) Cellulitis of right lower extremity Is this a current diagnosis for this admission?: Yes Plan: Empirically started on vancomycin. Blood cultures are pending. No obvious focus of infection from waist to collect a culture sample. She has having ultrasound the right lower extremity to rule out DVT. (2) Lung cancer Qualifiers: Laterality: right Lung location: middle lobe of lung Qualified Code(s): C34.2 - Malignant neoplasm of middle lobe, bronchus or lung Is this a current diagnosis for this admission?: Yes Plan: She has had treatment and follows up with Dr. Finney (3) Alcohol dependency Qualifiers: Substance use status: unspecified alcohol-induced disorder Qualified Code(s): F10.29 - Alcohol dependence with unspecified alcohol-induced disorder Is this a current diagnosis for this admission?: Yes Plan: This is been a problem in the past. She claims to have only a few drinks a week , usually socially. We will monitor her for signs of withdrawal. (4) Asthma Qualifiers: Asthma severity: moderate Asthma persistence: persistent Asthma complication type: uncomplicated Qualified Code(s): J45.40 - Moderate persistent asthma, uncomplicated Is this a current diagnosis for this admission?: Yes Plan: She uses Advair and an albuterol inhaler at home (5) Opiate dependence Qualifiers: Substance use status: uncomplicated Qualified Code(s): F11.20 - Opioid dependence, uncomplicated Is this a current diagnosis for this admission?: Yes Plan: She is on chronic pain medication, which we continue - Time Time Spent with patient: 35 or more minutes - Inpatient Certification Based on my medical assessment, after consideration of the patient's comorbidities, presenting symptoms, or acuity I expect that the services needed warrant INPATIENT care.: Yes I certify that my determination is in accordance with my understanding of Medicare's requirements for reasonable and necessary INPATIENT services [42 CFR 412.3e].: Yes Medical Necessity: Significant Comorbidiites Make Outpatient Treatment Too Risky, Need Close Monitoring Due to Risk of Patient Decompensation, Need For Continuous Telemetry Monitoring, Need for IV Antibiotics, Risk of Complication if Not Cared For in Hospital
[2019-09-04] MEDS: HEPARIN SOD (PORCINE) 5,000 UNIT/ML 1 ML VIAL SUBCUT SCH ×2 (14:48→21:11)
--- NOTE | 2019-09-04 15:00 | RADIOLOGY REPORT (SQ) ---
EXAM DESCRIPTION: VENOUS UNILATERAL LOWER IMAGES COMPLETED DATE/TIME: 09/04/2019 2:39 pm REASON FOR STUDY: right leg pain/swelling COMPARISON: None. TECHNIQUE: Dynamic and static feng scale and color images acquired of the right leg venous system. S elected spectral images acquired with additional compression and augmentation maneuvers. The contrala teral common femoral vein and saphenofemoral junction were also imaged. Images stored on PACS. LIMITATIONS: None. FINDINGS: COMMON FEMORAL: Normal phasicity, compression and augmentation. No visualized echogenic ma terial on feng scale. No defects on color images. FEMORAL: Normal compression and augmentation. No visualized echogenic material on feng scale. No defe cts on color images. POPLITEAL: Normal compression, augmentation. No visualized echogenic material on feng scale. No defec ts on color images. CALF VESSELS: Normal compression, augmentation. No visualized echogenic material on feng scale. No de fects on color images. GSV and SSV: Normal compression, augmentation. No visualized echogenic material on feng scale. No def ects on color images. ANY DEEP VENOUS INSUFFICIENCY: No. ANY EVIDENCE OF POPLITEAL CYST: No. OTHER: Unable to visualize the peroneal vein. CONTRALATERAL COMMON FEMORAL VEIN AND SAPHENOFEMORAL JUNCTION: Normal phasicity, compression and augmentation. No visualized echogenic material on feng scale. No de fects on color images. IMPRESSION: NO EVIDENCE OF DVT OR SVT IN THE RIGHT LEG. TECHNICAL DOCUMENTATION: JOB ID: [id number] 2010 [employer]- All Rights Reserved Reading location - IP/workstation name: [email or web address]
--- NOTE | 2019-09-04 19:28 | EKG REPORT ---
SEVERITY:- ABNORMAL ECG - SINUS TACHYCARDIA PROBABLE INFERIOR INFARCT, AGE INDETERMINATE : Confirmed by: Diaz Chairez MD 04-Sep-2019 19:28:07
[2019-09-05] MEDS: ACETAMINOPHEN 325 MG TABLET PO PRN ×2 (01:14→06:01)
[2019-09-05] MEDS: VANCOMYCIN HCL 1,000 MG in DEXTROSE 5%-WATER 250 ML IV SCH ×2 (03:25→16:35)
[2019-09-05] MEDS: HEPARIN SOD (PORCINE) 5,000 UNIT/ML 1 ML VIAL SUBCUT SCH ×3 (05:48→21:44)
[2019-09-05 08:19] LABS: HEMATOCRIT 40.9 % (36.0-47.0); HEMOGLOBIN 13.9 g/dL (12.0-15.5); MEAN CORPUSCULAR HEMOGLOBIN 33.6 pg (27.0-33.4); MEAN CORPUSCULAR VOLUME 99 fl (80-97); PLATELET COUNT 131 10^3/uL (150-450); RED BLOOD COUNT 4.15 10^6/uL (3.72-5.28); RED CELL DISTRIBUTION WIDTH 17.3 % (11.5-14.0); WHITE BLOOD COUNT 5.6 10^3/uL (4.0-10.5)
[2019-09-05 08:40] LABS: BLOOD UREA NITROGEN 12 mg/dL (7-20); CALCIUM 8.6 mg/dL (8.4-10.2); CARBON DIOXIDE 31 mmol/L (22-30); CHLORIDE 96 mmol/L (98-107); GLUCOSE 85 mg/dL (75-110); POTASSIUM 3.5 mmol/L (3.6-5.0)
[2019-09-05 08:42] LABS: ANION GAP 4 (5-19)
[2019-09-05] MEDS ORDERED: ALBUTEROL SULFATE HFA (90 MCG/PUFF) 8 GM MDI (1 MDI/ER DISP) IH PRN (11:59)
[2019-09-05] MEDS ORDERED: ALBUTEROL SULFATE HFA (90 MCG/PUFF) 200 PUFF/8.5 GM MDI IH PRN (12:03)
[2019-09-05] MEDS: BUPRENORPHINE HCL 2 MG SUBLINGUAL TABLET SL SCH ×2 (13:05→21:44)
[2019-09-05] MEDS: PANTOPRAZOLE SODIUM 40 MG TABLET.DR PO SCH (13:05)
[2019-09-05] MEDS: FLUTICASONE/UMECLIDIN/VILANTER 100-62.5-25 MCG/DOSE IH SCH (13:06)
--- NOTE | 2019-09-05 17:46 | PDOC PROGRESS REPORT ---
Subjective Progress Note for:: 09/05/19 Subjective:: No adverse events overnight. Her only complaint is that she said she was not getting her home medications. I think she was primarily concerned about her buprenorphine. She is not had any fevers. Blood cultures remain negative. She says her leg still hurts but she feels like the swelling is gone down. Reason For Visit: CELLULITIS Physical Exam Vital Signs: Temp Pulse Resp BP Pulse Ox 98.7 F 108 H 20 97/68 L 90 L 09/05/19 11:47 09/05/19 14:00 09/05/19 11:47 09/05/19 11:47 09/05/19 12:42 Intake & Output 09/04/19 09/05/19 09/06/19 06:59 06:59 06:59 Intake Total 400 360 Output Total 1 Balance 399 360 Weight 88.6 kg General appearance: PRESENT: no acute distress, cooperative, disheveled, morbidl y obese, other - Voice is very hoarse and gravelly Respiratory exam: PRESENT: decreased breath sounds, symmetrical, unlabored. ABSENT: accessory muscle use, chest wall tenderness, crackles, prolonged expiratory phas, tachypnea, wheezes Cardiovascular exam: PRESENT: RRR, +S1, +S2 Pulses: PRESENT: normal carotid pulses Vascular exam: PRESENT: normal capillary refill GI/Abdominal exam: PRESENT: normal bowel sounds, soft. ABSENT: guarding, rebound, tenderness Extremities exam: PRESENT: pedal edema - Right foot, tenderness - Right lower extremity, +1 edema - Right lower extremity. ABSENT: calf tenderness, clubbing Musculoskeletal exam: PRESENT: normal inspection. ABSENT: deformity Neurological exam: PRESENT: alert, awake, oriented to person, oriented to place, oriented to situation Psychiatric exam: PRESENT: appropriate affect, normal mood Skin exam: PRESENT: other - She has numerous scabs on her extremities, most of them are very small. Most notably, she has several areas on the lower extremity which show small excoriations in various stages of healing. Several of them are grouped into linear patterns that seem to be more healed distally and less healed proximally. She has 1 long scabbed area in a linear fashion on the lateral aspect of the right knee. She has swelling and erythema that goes from the foot proximal to the knee but is diminished in intensity. Results Laboratory Results: 09/05/19 07:29 09/05/19 07:29 09/04/19 09/05/19 09/05/19 17:40 07:29 07:29 WBC 5.6 RBC 4.15 Hgb 13.9 Hct 40.9 MCV 99 H MCH 33.6 H MCHC 34.0 RDW 17.3 H Plt Count 131 L Sodium 130.9 L Potassium 3.5 L Chloride 96 L Carbon Dioxide 31 H Anion Gap 4 L BUN 12 Creatinine 0.50 L Est GFR ( Amer) > 60 Glucose 85 Lactic Acid 1.5 Calcium 8.6 Impressions: Venous Doppler Study 09/04/19 11:23 IMPRESSION: NO EVIDENCE OF DVT OR SVT IN THE RIGHT LEG. Assessment and Plan - Diagnosis (1) Cellulitis of right lower extremity Is this a current diagnosis for this admission?: Yes Plan: She continues on vancomycin. Blood cultures are negative. No evidence of any pus or exudates. She is showing some signs of improvement. (2) Lung cancer Qualifiers: Laterality: right Lung location: middle lobe of lung Qualified Code(s): C34.2 - Malignant neoplasm of middle lobe, bronchus or lung Is this a current diagnosis for this admission?: Yes Plan: She has had treatment and follows up with Dr. Robertson (3) Alcohol dependency Qualifiers: Substance use status: unspecified alcohol-induced disorder Qualified Code(s): F10.29 - Alcohol dependence with unspecified alcohol-induced disorder Is this a current diagnosis for this admission?: Yes Plan: This is been a problem in the past. She claims to have only a few drinks a week, usually socially. We will monitor her for signs of withdrawal. (4) Asthma Qualifiers: Asthma severity: moderate Asthma persistence: persistent Asthma complication type: uncomplicated Qualified Code(s): J45.40 - Moderate persistent asthma, uncomplicated Is this a current diagnosis for this admission?: Yes Plan: She uses Advair and an albuterol inhaler at home, this is not exacerbated (5) Opiate dependence Qualifiers: Substance use status: uncomplicated Qualified Code(s): F11.20 - Opioid dependence, uncomplicated Is this a current diagnosis for this admission?: Yes Plan: She is on chronic buprenorphine, which we continue - Time Time Spent with patient: 15-24 minutes
[2019-09-05] MEDS ORDERED: (PENDING PHARMACY ID) (Buprenorphine Hcl [Buprenorphine Hcl] 8 MG) PO SCH (22:00)
[2019-09-06] MEDS ORDERED: VANCOMYCIN HCL INJ 1000 MG VIAL ONE (03:31)
[2019-09-06] MEDS: VANCOMYCIN HCL 1,000 MG in DEXTROSE 5%-WATER 250 ML IV SCH ×2 (03:40→16:23)
[2019-09-06] MEDS: HEPARIN SOD (PORCINE) 5,000 UNIT/ML 1 ML VIAL SUBCUT SCH ×3 (05:01→22:16)
[2019-09-06] MEDS: ACETAMINOPHEN 325 MG TABLET PO PRN ×2 (05:19→15:22)
[2019-09-06 05:52] LABS: HEMATOCRIT 39.4 % (36.0-47.0); HEMOGLOBIN 13.3 g/dL (12.0-15.5); MEAN CORPUSCULAR HGB CONC 33.8 g/dL (32.0-36.0); MEAN CORPUSCULAR VOLUME 98 fl (80-97); PLATELET COUNT 115 10^3/uL (150-450); RED BLOOD COUNT 4.02 10^6/uL (3.72-5.28); RED CELL DISTRIBUTION WIDTH 17.4 % (11.5-14.0); WHITE BLOOD COUNT 4.3 10^3/uL (4.0-10.5)
[2019-09-06 06:16] LABS: ANION GAP 7 (5-19); BLOOD UREA NITROGEN 9 mg/dL (7-20); CALCIUM 8.3 mg/dL (8.4-10.2); CARBON DIOXIDE 30 mmol/L (22-30); CHLORIDE 94 mmol/L (98-107); GLUCOSE 112 mg/dL (75-110); POTASSIUM 3.2 mmol/L (3.6-5.0)
[2019-09-06] MEDS: PREDNISONE 20 MG TABLET PO SCH (09:33)
[2019-09-06] MEDS: PANTOPRAZOLE SODIUM 40 MG TABLET.DR PO SCH (09:33)
[2019-09-06] MEDS: FLUTICASONE/UMECLIDIN/VILANTER 100-62.5-25 MCG/DOSE IH SCH (09:33)
[2019-09-06] MEDS: BUPRENORPHINE HCL 2 MG SUBLINGUAL TABLET SL SCH ×2 (09:33→22:20)
[2019-09-06] MEDS ORDERED: (PENDING PHARMACY ID) (Linaclotide [Linzess] 72 MCG) PO SCH (10:00)
[2019-09-06 16:36] LABS: VANCOMYCIN,TROUGH 5.2 ug/mL (5.0-20.0)
--- NOTE | 2019-09-06 16:39 | PDOC PROGRESS REPORT ---
Subjective Progress Note for:: 09/06/19 Subjective:: No adverse events overnight. No new complaints. She was asking if I would give her more pain medication, but she was talking to someone on the phone whenever I came in the room and she appeared very comfortable. She even told me that her legs were feeling better. Reason For Visit: CELLULITIS Physical Exam Vital Signs: Temp Pulse Resp BP Pulse Ox 98.1 F 106 H 20 104/68 90 L 09/06/19 11:22 09/06/19 14:00 09/06/19 11:22 09/06/19 11:22 09/06/19 11:22 Intake & Output 09/05/19 09/06/19 09/07/19 06:59 06:59 06:59 Intake Total 400 1424 600 Output Total 1 400 Balance 399 1424 200 Weight 88.6 kg 88.2 kg General appearance: PRESENT: no acute distress, cooperative, disheveled, morbidly obese, other - Voice is very hoarse and gravelly Respiratory exam: PRESENT: decreased breath sounds, symmetrical, unlabored. ABSENT: accessory muscle use, chest wall tenderness, crackles, prolonged expiratory phas, tachypnea, wheezes Cardiovascular exam: PRESENT: RRR, +S1, +S2 Pulses: PRESENT: normal carotid pulses Vascular exam: PRESENT: normal capillary refill GI/Abdominal exam: PRESENT: normal bowel sounds, soft. ABSENT: guarding, rebound, tenderness Extremities exam: PRESENT: pedal edema - Right foot, tenderness - Right lower extremity, +1 edema - Right lower extremity. ABSENT: calf tenderness, clubbing Musculoskeletal exam: PRESENT: normal inspection. ABSENT: deformity Neurological exam: PRESENT: alert, awake, oriented to person, oriented to place, oriented to situation Psychiatric exam: PRESENT: appropriate affect, normal mood Skin exam: PRESENT: other - She has numerous scabs on her extremities, most of them are very small. Most notably, she has several areas on the lower extremity which show small excoriations in various stages of healing. Several of them are grouped into linear patterns that seem to be more healed distally and less heale d proximally. She has 1 long scabbed area in a linear fashion on the lateral aspect of the right knee. She has swelling and erythema that goes from the foot proximal to the knee but is diminished in intensity. Results Laboratory Results: 09/06/19 05:11 09/06/19 05:11 09/06/19 09/06/19 05:11 05:11 WBC 4.3 RBC 4.02 Hgb 13.3 Hct 39.4 MCV 98 H MCH 33.0 MCHC 33.8 RDW 17.4 H Plt Count 115 L Sodium 130.5 L Potassium 3.2 L Chloride 94 L Carbon Dioxide 30 Anion Gap 7 BUN 9 Creatinine 0.43 L Est GFR ( Amer) > 60 Glucose 112 H Calcium 8.3 L Impressions: Venous Doppler Study 09/04/19 11:23 IMPRESSION: NO EVIDENCE OF DVT OR SVT IN THE RIGHT LEG. Assessment and Plan - Diagnosis (1) Cellulitis of right lower extremity Is this a current diagnosis for this admission?: Yes Plan: The swelling has gone down little bit more, erythema about the same as it was yesterday. We will continue vancomycin. White blood cell count is normal. She is afebrile. Blood cultures are negative. (2) Lung cancer Qualifiers: Laterality: right Lung location: middle lobe of lung Qualified Code(s): C34.2 - Malignant neoplasm of middle lobe, bronchus or lung Is this a current diagnosis for this admission?: Yes Plan: She has had treatment and follows up with Dr. Robertson (3) Alcohol dependency Qualifiers: Substance use status: unspecified alcohol-induced disorder Qualified Code(s): F10.29 - Alcohol dependence with unspecified alcohol-induced disorder Is this a current diagnosis for this admission?: Yes Plan: This is been a problem in the past. She claims to have only a few drinks a week, usually socially. We will monitor her for signs of withdrawal. (4) Asthma Qualifiers: Asthma severity: moderate Asthma persistence: persistent Asthma complication type: uncomplicated Qualified Code(s): J45.40 - Moderate pe rsistent asthma, uncomplicated Is this a current diagnosis for this admission?: Yes Plan: She uses Advair and an albuterol inhaler at home, this is not exacerbated (5) Opiate dependence Qualifiers: Substance use status: uncomplicated Qualified Code(s): F11.20 - Opioid dep endence, uncomplicated Is this a current diagnosis for this admission?: Yes Plan: She is on chronic buprenorphine, which we continue - Time Time Spent with patient: 15-24 minutes
[2019-09-06] MEDS: VANCOMYCIN HCL 1,500 MG in DEXTROSE 5%-WATER 250 ML IV SCH (22:48)
[2019-09-07] MEDS: ACETAMINOPHEN 325 MG TABLET PO PRN ×4 (00:54→18:17)
[2019-09-07] MEDS: HEPARIN SOD (PORCINE) 5,000 UNIT/ML 1 ML VIAL SUBCUT SCH ×3 (05:48→21:39)
[2019-09-07] MEDS: VANCOMYCIN HCL 1,500 MG in DEXTROSE 5%-WATER 250 ML IV SCH ×3 (05:53→21:40)
[2019-09-07 06:13] LABS: HEMATOCRIT 41.3 % (36.0-47.0); HEMOGLOBIN 14.1 g/dL (12.0-15.5); MEAN CORPUSCULAR HEMOGLOBIN 33.7 pg (27.0-33.4); MEAN CORPUSCULAR HGB CONC 34.2 g/dL (32.0-36.0); MEAN CORPUSCULAR VOLUME 99 fl (80-97); RED BLOOD COUNT 4.19 10^6/uL (3.72-5.28); WHITE BLOOD COUNT 5.6 10^3/uL (4.0-10.5)
[2019-09-07 06:28] LABS: ANION GAP 9 (5-19); BLOOD UREA NITROGEN 12 mg/dL (7-20); CALCIUM 8.3 mg/dL (8.4-10.2); CARBON DIOXIDE 30 mmol/L (22-30); CHLORIDE 92 mmol/L (98-107); GLUCOSE 189 mg/dL (75-110); POTASSIUM 3.4 mmol/L (3.6-5.0)
[2019-09-07 06:52] LABS: PLATELET COUNT 113 10^3/uL (150-450)
[2019-09-07] MEDS: BUPRENORPHINE HCL 2 MG SUBLINGUAL TABLET SL SCH ×2 (09:49→21:40)
[2019-09-07] MEDS: PANTOPRAZOLE SODIUM 40 MG TABLET.DR PO SCH (09:49)
[2019-09-07] MEDS: PREDNISONE 20 MG TABLET PO SCH (09:49)
[2019-09-07] MEDS: FLUTICASONE/UMECLIDIN/VILANTER 100-62.5-25 MCG/DOSE IH SCH (09:49)
--- NOTE | 2019-09-07 17:30 | PDOC PROGRESS REPORT ---
Subjective Progress Note for:: 09/07/19 Subjective:: No adverse events overnight. No new complaints. When I came into the room she was talking on the phone and appeared in good spirits and was very comfortable. When she hung up the phone she told me how much pain her leg was giving her. Her demeanor changed when she got off the phone. Vital signs have been stable. No fevers. Reason For Visit: CELLULITIS Physical Exam Vital Signs: Temp Pulse Resp BP Pulse Ox 98.0 F 118 H 20 133/81 H 90 L 09/07/19 15:27 09/07/19 15:27 09/07/19 15:27 09/07/19 15:27 09/07/19 15:27 Intake & Output 09/06/19 09/07/19 09/08/19 06:59 06:59 06:59 Intake Total 1424 1940 860 Output Total 1300 450 Balance 1424 640 410 Weight 88.2 kg 88.2 kg General appearance: PRESENT: no acute distress, cooperative, disheveled, morbidly obese, other - Voice is very hoarse and gravelly Respiratory exam: PRESENT: decreased breath sounds, symmetrical, unlabored. ABSENT: accessory muscle use, chest wall tenderness, crackles, prolonged expiratory phas, tachypnea, wheezes Cardiovascular exam: PRESENT: RRR, +S1, +S2 Pulses: PRESENT: normal carotid pulses Vascular exam: PRESENT: normal capillary refill GI/Abdominal exam: PRESENT: normal bowel sounds, soft. ABSENT: guarding, rebound, tenderness Extremities exam: PRESENT: pedal edema - Right foot, tenderness - Right lower extremity, +1 edema - Right lower extremity. ABSENT: calf tenderness, clubbing Musculoskeletal exam: PRESENT: normal inspection. ABSENT: deformity Neurological exam: PRESENT: alert, awake, oriented to person, oriented to place, oriented to situation Psychiatric exam: PRESENT: appropriate affect, normal mood Skin exam: PRESENT: other - She has numerous scabs on her extremities, most of them are very small. Most notably, she has several areas on the lower extremity which show small excoriations in various stages of healing. Several of them are grouped into linear patterns that seem to be more healed distally and less healed proximally. She has 1 long scabbed area in a linear fashion on the lateral aspect of the right knee. The swelling is essentially resolved, and the swelling along with erythema are essentially confined to an area from 10 cm prox imal to the ankle to dorsal surface of the foot. Results Laboratory Results: 09/07/19 05:30 09/07/19 05:30 09/07/19 09/07/19 05:30 05:30 WBC 5.6 RBC 4.19 Hgb 14.1 Hct 41.3 MCV 99 H MCH 33.7 H MCHC 34.2 RDW 17.0 H Plt Count 113 L Sodium 131.1 L Potassium 3.4 L Chloride 92 L Carbon Dioxide 30 Anion Gap 9 BUN 12 Creatinine 0.53 Est GFR ( Amer) > 60 Glucose 189 H Calcium 8.3 L Impressions: Venous Doppler Study 09/04/19 11:23 IMPRESSION: NO EVIDENCE OF DVT OR SVT IN THE RIGHT LEG. Assessment and Plan - Diagnosis (1) Cellulitis of right lower extremity Is this a current diagnosis for this admission?: Yes Plan: The swelling has gone down and the erythema has improved substantially from yesterday. We will continue vancomycin. White blood cell count is normal. She is afebrile. Blood cultures are negative. If she continues to improve, anticipate discharge home tomorrow. (2) Lung cancer Qualifiers: Laterality: right Lung location: middle lobe of lung Qualified Code(s): C34.2 - Malignant neoplasm of middle lobe, bronchus or lung Is this a current diagnosis for this admission?: Yes Plan: She has had treatment and follows up with Dr. Robertson (3) Alcohol dependency Qualifiers: Substance use status: unspecified alcohol-induced disorder Qualified Code(s): F10.29 - Alcohol dependence with unspecified alcohol-induced disorder Is this a current diagnosis for this admission?: Yes Plan: This is been a problem in the past. She claims to have only a few drinks a week, usually socially. Her called and told her she drinks several drinks a day. We will monitor her for signs of withdrawal. (4) Asthma Qualifiers: Asthma severity: moderate Asthma persistence: persistent Asthma complication type: uncomplicated Qualified Code(s): J45.40 - Moderate persistent asthma, uncomplicated Is this a current diagnosis for this admission?: Yes Plan: She uses Advair and an albuterol inhaler at home, this is not exacerbated (5) Opiate dependence Qualifiers: Substance use status: uncomplicated Qualified Code(s): F11.20 - Opioid dependence, uncomplicated Is this a current diagnosis for this admission?: Yes Plan: She is on chronic buprenorphine, which we continue - Time Time Spent with patient: 15-24 minutes
[2019-09-07] MEDS: DOCUSATE SODIUM 100 MG CAPSULE PO SCH (18:16)
[2019-09-08] MEDS: ACETAMINOPHEN 325 MG TABLET PO PRN ×4 (02:30→23:01)
[2019-09-08] MEDS: HEPARIN SOD (PORCINE) 5,000 UNIT/ML 1 ML VIAL SUBCUT SCH ×3 (05:25→22:57)
[2019-09-08] MEDS: VANCOMYCIN HCL 1,500 MG in DEXTROSE 5%-WATER 250 ML IV SCH ×3 (06:59→22:57)
[2019-09-08] MEDS: BUPRENORPHINE HCL 2 MG SUBLINGUAL TABLET SL SCH ×2 (09:40→22:58)
[2019-09-08] MEDS: PANTOPRAZOLE SODIUM 40 MG TABLET.DR PO SCH (09:40)
[2019-09-08] MEDS: PREDNISONE 20 MG TABLET PO SCH (09:40)
[2019-09-08] MEDS: DOCUSATE SODIUM 100 MG CAPSULE PO SCH ×2 (09:40→18:54)
[2019-09-08] MEDS: FLUTICASONE/UMECLIDIN/VILANTER 100-62.5-25 MCG/DOSE IH SCH (09:41)
[2019-09-08] MEDS ORDERED: MORPHINE SULFATE 10 MG/ML INJ IV PRN (10:56)
[2019-09-08] MEDS: MORPHINE SULFATE 10 MG/ML INJ IV PRN ×2 (15:02→23:19)
--- NOTE | 2019-09-08 15:42 | PDOC PROGRESS REPORT ---
Subjective Progress Note for:: 09/08/19 Subjective:: No adverse events overnight. No new complaints. Vital signs have been stable. She still complaining of pain in her foot. She is looks comfortable whenever anybody goes into the room and when she is talking on the phone and distracted but when he started asking her how she is doing she immediately does she she is in pain. She does tell me that she has had development of a blister on her right foot. Reason For Visit: CELLULITIS Physical Exam Vital Signs: Temp Pulse Resp BP Pulse Ox 97.8 F 128 H 20 90/52 L 91 L 09/08/19 14:48 09/08/19 14:48 09/08/19 14:48 09/08/19 14:48 09/08/19 10:36 Intake & Output 09/07/19 09/08/19 09/09/19 06:59 06:59 06:59 Intake Total 1940 1790 850 Output Total 1300 850 Balance 640 940 850 Weight 88.2 kg 83.3 kg General appearance: PRESENT: no acute distress, cooperative, disheveled, morbidly obese, other - Voice is very hoarse and gravelly Respiratory exam: PRESENT: decreased breath sounds, symmetrical, unlabored. ABSENT: accessory muscle use, chest wall tenderness, crackles, prolonged expiratory phas, tachypnea, wheezes Cardiovascular exam: PRESENT: RRR, +S1, +S2 Pulses: PRESENT: normal carotid pulses Vascular exam: PRESENT: normal capillary refill GI/Abdominal exam: PRESENT: normal bowel sounds, soft. ABSENT: guarding, rebound, tenderness Extremities exam: PRESENT: pedal edema - Right foot, tenderness - Right lower extremity, +1 edema - Right lower extremity. ABSENT: calf tenderness, clubbing Musculoskeletal exam: PRESENT: normal inspection. ABSENT: deformity Neurological exam: PRESENT: alert, awake, oriented to person, oriented to place, oriented to situation Psychiatric exam: PRESENT: appropriate affect, normal mood Skin exam: PRESENT: other - She has numerous scabs on her extremities, most of them are very small. Most notably, she has several areas on the lower extremity which show small excoriations in various stages of healing. Several of them are grouped into linear patterns that seem to be more healed distally and less healed proximally. She has 1 long scabbed area in a linear fashion on the lateral aspect of the right knee. The swelling and erythema are mostly confined to the area just proximal to the ankle into the foot, and the dorsum of the foot has a large fluid-filled blister that has developed on it. Results Laboratory Results: 09/07/19 05:30 09/07/19 05:30 Impressions: Venous Doppler Study 09/04/19 11:23 IMPRESSION: NO EVIDENCE OF DVT OR SVT IN THE RIGHT LEG. Assessment and Plan - Diagnosis (1) Cellulitis of right lower extremity Is this a current diagnosis for this admission?: Yes Plan: She does have a lot of improvement in the erythema and swelling compared to yesterday, but now she has developed a large fluid-filled blister on the dorsum of the right foot. Ordered a soft tissue ultrasound to evaluate for abscess. I think the best thing to do is to continue her on IV antibiotics for now. (2) Lung cancer Qualifiers: Laterality: right Lung location: middle lobe of lung Qualified Code(s): C34.2 - Malignant neoplasm of middle lobe, bronchus or lung Is this a current diagnosis for this admission?: Yes Plan: She has had treatment and follows up with Dr. Robertson (3) Alcohol dependency Qualifiers: Substance use status: unspecified alcohol-induced disorder Qualified Code(s): F10.29 - Alcohol dependence with unspecified alcohol-induced disorder Is this a current diagnosis for this admission?: Yes Plan: This is been a problem in the past. She claims to have only a few drinks a week, usually socially. Her called and told her she drinks several drinks a day. We will monitor her for signs of withdrawal. (4) Asthma Qualifiers: Asthma severity: moderate Asthma persistence: persistent Asthma comp lication type: uncomplicated Qualified Code(s): J45.40 - Moderate persistent asthma, uncomplicated Is this a current diagnosis for this admission?: Yes Plan: She uses Advair and an albuterol inhaler at home, this is not exacerbated (5) Opiate dependence Qualifiers: Substance use status: uncomplicated Qualified Code(s): F11.20 - Opioid dependence, uncomplicated Is this a current diagnosis for this admission?: Yes Plan: She is on chronic buprenorphine, which we continue - Time Time Spent with patient: 25-34 minutes
--- NOTE | 2019-09-08 17:03 | RADIOLOGY REPORT (SQ) ---
EXAM DESCRIPTION: U/S EXTREMITY NONVASCULAR COMP IMAGES COMPLETED DATE/TIME: 09/08/2019 4:42 pm REASON FOR STUDY: right lower extremity cellulitis, r/o abscess COMPARISON: None. TECHNIQUE: Dynamic and static grayscale images acquired of the localized site of clinical concern an d recorded on PACS. Additional selected color Doppler and spectral images recorded. SITE OF CONCERN: Dorsal aspect of the right foot LIMITATIONS: None. FINDINGS: There is a 4 mm thickness 2.6 cm by 4.5 cm fluid collection in the cutaneous- subcutaneous soft tissues on the dorsum of the right foot. Otherwise diffuse subcutaneous swelling is present. OTHER: No other significant finding. IMPRESSION: There is a 4 mm thickness 2.6 cm by 4.5 cm fluid collection in the cutaneous- subcutaneo us soft tissues on the dorsum of the right foot. TECHNICAL DOCUMENTATION: JOB ID: [id number] [place]-72 2010 [employer]- All Rights Reserved Reading location - IP/workstation name: [email or web address]
[2019-09-09] MEDS: HEPARIN SOD (PORCINE) 5,000 UNIT/ML 1 ML VIAL SUBCUT SCH ×3 (05:03→22:15)
[2019-09-09] MEDS: VANCOMYCIN HCL 1,500 MG in DEXTROSE 5%-WATER 250 ML IV SCH ×3 (06:52→22:14)
[2019-09-09] MEDS: MORPHINE SULFATE 10 MG/ML INJ IV PRN ×4 (07:06→22:14)
[2019-09-09 07:58] LABS: ANION GAP 5 (5-19); BLOOD UREA NITROGEN 13 mg/dL (7-20); CALCIUM 8.8 mg/dL (8.4-10.2); CARBON DIOXIDE 35 mmol/L (22-30); CHLORIDE 94 mmol/L (98-107); GLUCOSE 89 mg/dL (75-110); POTASSIUM 3.5 mmol/L (3.6-5.0); VANCOMYCIN,TROUGH 25.9 ug/mL (5.0-20.0)
[2019-09-09] MEDS: ACETAMINOPHEN 325 MG TABLET PO PRN ×2 (08:02→20:04)
[2019-09-09] MEDS: PREDNISONE 20 MG TABLET PO SCH (09:08)
[2019-09-09] MEDS: FLUTICASONE/UMECLIDIN/VILANTER 100-62.5-25 MCG/DOSE IH SCH (09:08)
[2019-09-09] MEDS: BUPRENORPHINE HCL 2 MG SUBLINGUAL TABLET SL SCH ×2 (09:08→22:14)
[2019-09-09] MEDS: DOCUSATE SODIUM 100 MG CAPSULE PO SCH ×2 (09:08→17:09)
[2019-09-09] MEDS: PANTOPRAZOLE SODIUM 40 MG TABLET.DR PO SCH (09:08)
--- NOTE | 2019-09-09 16:19 | PDOC PROGRESS REPORT ---
Subjective Progress Note for:: 09/09/19 Subjective:: No adverse events overnight. No new complaints. She says her foot is feeling better. The redness and swelling have improved. She has had a dry cough but she says that that is chronic. No fevers. Reason For Visit: CELLULITIS Physical Exam Vital Signs: Temp Pulse Resp BP Pulse Ox 97.2 F 115 H 19 107/65 95 09/09/19 11:43 09/09/19 14:00 09/09/19 11:43 09/09/19 11:43 09/09/19 11:43 Intake & Output 09/08/19 09/09/19 09/10/19 06:59 06:59 06:59 Intake Total 1790 2310 370 Output Total 850 Balance 940 2310 370 Weight 83.3 kg 93.4 kg General appearance: PRESENT: no acute distress, cooperative, disheveled, morbidly obese, other - Voice is very hoarse and gravelly Respiratory exam: PRESENT: decreased breath sounds, symmetrical, unlabored. ABSENT: accessory muscle use, chest wall tenderness, crackles, prolonged expiratory phas, tachypnea, wheezes Cardiovascular exam: PRESENT: RRR, +S1, +S2 Pulses: PRESENT: normal carotid pulses Vascular exam: PRESENT: normal capillary refill GI/Abdominal exam: PRESENT: normal bowel sounds, soft. ABSENT: guarding, rebound, tenderness Extremities exam: PRESENT: pedal edema - Right foot, tenderness - Right lower extremity, +1 edema - Right lower extremity. ABSENT: calf tenderness, clubbing Musculoskeletal exam: PRESENT: normal inspection. ABSENT: deformity Neurological exam: PRESENT: alert, awake, oriented to person, oriented to place, oriented to situation Psychiatric exam: PRESENT: appropriate affect, normal mood Skin exam: PRESENT: other - She has numerous scabs on her extremities, most of them are very small. Most notably, she has several areas on the lower extremity which show small excoriations in various stages of healing. Several of them are grouped into linear patterns that seem to be more healed distally and less healed proximally. She has 1 long scabbed area in a linear fashion on the lateral aspect of the right knee. The swelling and erythema are now mostly distal to the ankle. There are 2 large blisters on the dorsum of the right foot that are filled with a serous fluid. Results Laboratory Results: 09/07/19 05:30 09/09/19 07:20 09/08/19 09/09/19 19:25 07:20 Sodium 134.2 L Potassium 3.5 L Chloride 94 L Carbon Dioxide 35 H Anion Gap 5 BUN 13 Creatinine 0.54 Est GFR ( Amer) > 60 Glucose 89 Calcium 8.8 Magnesium 1.8 09/04/19 13:59 Blood Blood Culture - Final NO GROWTH IN 5 DAYS 09/04/19 11:35 Blood Blood Culture - Final NO GROWTH IN 5 DAYS Impressions: Venous Doppler Study 09/04/19 11:23 IMPRESSION: NO EVIDENCE OF DVT OR SVT IN THE RIGHT LEG. Extremity Ultrasound 09/08/19 00:00 IMPRESSION: There is a 4 mm thickness 2.6 cm by 4.5 cm fluid collection in the cutaneous- subcutaneous soft tissues on the dorsum of the right foot. Assessment and Plan - Diagnosis (1) Cellulitis of right lower extremity Is this a current diagnosis for this admission?: Yes Plan: Ultrasound was negative for abscess. She has had substantial improvement over the last couple of days after several days of very slow and minimal improvement. Blood cultures remain negative. There is not appear to be a drainable fluid collection. She has 2 blisters on the dorsum of the foot but they are not filled with pus. I think these were blisters that formed from the increased pressure from the swelling in her foot. Another day or 2 of IV antibiotics and she may be ready to go home. (2) Lung cancer Qualifiers: Laterality: right Lung location: middle lobe of lung Qualified Code(s): C34.2 - Malignant neoplasm of middle lobe, bronchus or lung Is this a current diagnosis for this admission?: Yes Plan: She has had treatment and follows up with Dr. Robertson (3) Alcohol dependency Qualifiers: Substance use status: unspecified alcohol-induced disorder Qualified Code(s): F10.29 - Alcohol dependence with unspecified alcohol-induced disorder Is this a current diagnosis for this admission?: Yes Plan: This is been a problem in the past. She claims to have only a few drinks a week, usually socially. Her called and told her she drinks several drinks a day. We will monitor her for signs of withdrawal. (4) Asthma Qualifiers: Asthma severity: moderate Asthma persistence: persistent Asthma complication type: uncomplicated Qualified Code(s): J45.40 - Moderate persistent asthma, uncomplicated Is this a current diagnosis for this admission?: Yes Plan: She uses Advair and an albuterol inhaler at home, this is not exacerbated (5) Opiate dependence Qualifiers: Substance use status: uncomplicated Qualified Code(s): F11.20 - Opioid dependence, uncomplicated Is this a current diagnosis for this admission?: Yes Plan: She is on chronic buprenorphine, which we continue - Time Time Spent with patient: 15-24 minutes
[2019-09-10] MEDS: HEPARIN SOD (PORCINE) 5,000 UNIT/ML 1 ML VIAL SUBCUT SCH ×3 (05:14→21:17)
[2019-09-10] MEDS: MORPHINE SULFATE 10 MG/ML INJ IV PRN ×4 (05:28→19:56)
[2019-09-10 06:37] LABS: ANION GAP 7 (5-19); BLOOD UREA NITROGEN 13 mg/dL (7-20); CALCIUM 8.9 mg/dL (8.4-10.2); CARBON DIOXIDE 36 mmol/L (22-30); CHLORIDE 93 mmol/L (98-107); GLUCOSE 93 mg/dL (75-110); POTASSIUM 3.2 mmol/L (3.6-5.0)
[2019-09-10] MEDS: ACETAMINOPHEN 325 MG TABLET PO PRN (08:32)
[2019-09-10] MEDS: PREDNISONE 20 MG TABLET PO SCH (09:57)
[2019-09-10] MEDS: PANTOPRAZOLE SODIUM 40 MG TABLET.DR PO SCH (09:57)
[2019-09-10] MEDS: VANCOMYCIN HCL 1,500 MG in DEXTROSE 5%-WATER 250 ML IV SCH ×2 (09:57→21:19)
[2019-09-10] MEDS: DOCUSATE SODIUM 100 MG CAPSULE PO SCH ×2 (09:57→18:01)
[2019-09-10] MEDS: BUPRENORPHINE HCL 2 MG SUBLINGUAL TABLET SL SCH ×3 (09:57→21:18)
[2019-09-10] MEDS: FLUTICASONE/UMECLIDIN/VILANTER 100-62.5-25 MCG/DOSE IH SCH (09:58)
--- NOTE | 2019-09-10 13:00 | PDOC PROGRESS REPORT ---
Subjective Progress Note for:: 09/10/19 Subjective:: Patient states that the swelling and redness of her right leg is improved. She is requesting to go home and is not very willing to go to a rehab. I discussed physical therapy's recommendations for SNF but patient prefers to go home. Patient states that her oxygen levels have never been good since her diagnosis of lung cancer and that she uses about 2 L of nasal cannula at home. States that her SPO2 is usually in the high 80s to 90s. Reason For Visit: CELLULITIS Physical Exam Vital Signs: Temp Pulse Resp BP Pulse Ox 98.6 F 125 H 18 90/63 L 93 09/10/19 08:14 09/10/19 08:14 09/10/19 08:14 09/10/19 08:14 09/10/19 08:14 Intake & Output 09/09/19 09/10/19 09/11/19 06:59 06:59 06:59 Intake Total 2310 1321 Balance 2310 1321 Weight 93.4 kg 95.2 kg General appearance: PRESENT: no acute distress, cooperative Neck exam: ABSENT: JVD Respiratory exam: PRESENT: symmetrical, tachypnea, unlabored. ABSENT: accessory muscle use, retraction, wheezes Cardiovascular exam: PRESENT: RRR, +S1, +S2. ABSENT: tachycardia GI/Abdominal exam: PRESENT: soft. ABSENT: rebound, rigid, tenderness Neurological exam: PRESENT: alert, awake, oriented to person, oriented to place, oriented to time Results Laboratory Results: 09/07/19 05:30 09/10/19 06:05 09/10/19 06:05 Sodium 136.1 L Potassium 3.2 L Chloride 93 L Carbon Dioxide 36 H Anion Gap 7 BUN 13 Creatinine 0.69 Est GFR ( Amer) > 60 Glucose 93 Calcium 8.9 09/04/19 13:59 Blood Blood Culture - Final NO GROWTH IN 5 DAYS 09/04/19 11:35 Blood Blood Culture - Final NO GROWTH IN 5 DAYS Impressions: Venous Doppler Study 09/04/19 11:23 IMPRESSION: NO EVIDENCE OF DVT OR SVT IN THE RIGHT LEG. Extremity Ultrasound 09/08/19 00:00 IMPRESSION: There is a 4 mm thickness 2.6 cm by 4.5 cm fluid collection in the cutaneous- subcutaneous soft tissues on the dorsum of the right foot. Assessment and Plan - Diagnosis (1) Cellulitis of right lower extremity Is this a current diagnosis for this admission?: Yes Plan: Ultrasound was negative for abscess or DVT. Patient has been on vancomycin for several days now. She endorses improvement. I will plan to transition to oral antibiotics tomorrow. Physical therapy evaluated patient but recommending SNF. I have asked physical therapy to evaluate today as patient prefers to go home. Pain control (2) Hypoxia Is this a current diagnosis for this admission?: Yes Plan: Patient was noted be on 5 L nasal cannula at this morning. Have decreased nasal cannula to 2 L as she uses 2 L nasal cannula at home since diagnosis of lung cancer. However, SPO2 was in the mid 80s on 2 L but improved to mid 90s on 3 L nasal cannula. I will check a chest x-ray. Nebulizer treatments and incentive spirometer. (3) Lung cancer Qualifiers: Laterality: right Lung location: middle lobe of lung Qualified Code(s): C34.2 - Malignant neoplasm of middle lobe, bronchus or lung Is this a current diagnosis for this admission?: Yes Plan: She has had treatment and follows up with Dr. Robertson. She informs me that it is right lung cancer and that she has undergone several sessions of chemo radiation in the past with last session of chemo being April 2019. (4) Asthma Qualifiers: Asthma severity: moderate Asthma persistence: persistent Asthma complication type: uncomplicated Qualified Code(s): J45.40 - Moderate persiste nt asthma, uncomplicated Is this a current diagnosis for this admission?: Yes Plan: She uses Advair and an albuterol inhaler at home, this is not exacerbated. (5) Opiate dependence Qualifiers: Substance use status: uncomplicated Qualified Code(s): F11.20 - Opioid dependence, uncomplicated Is this a current diagnosis for this admission?: Yes Plan: She is on chronic buprenorphine, which we continue - Time Time Spent with patient: 15-24 minutes
[2019-09-10] MEDS: ALBUTEROL SULFATE 0.042% NEB (1.25 MG/3 ML) AMPUL NEB SCH ×2 (13:58→20:46)
[2019-09-10] MEDS: POTASSIUM CHLORIDE 10 MEQ TABLET.ER PO SCH ×2 (14:05→21:18)
--- NOTE | 2019-09-10 16:17 | RADIOLOGY REPORT (SQ) ---
EXAM DESCRIPTION: CHEST 2 VIEWS IMAGES COMPLETED DATE/TIME: 09/10/2019 3:42 pm REASON FOR STUDY: sob, hypoxia. hx of lung cancer COMPARISON: 10/06/2018 EXAM PARAMETERS: NUMBER OF VIEWS: two views TECHNIQUE: Digital Frontal and Lateral radiographic views of the chest acquired. RADIATION DOSE: NA LIMITATIONS: none FINDINGS: LUNGS AND PLEURA: Stable chronic interstitial changes with no evidence of focal airspace d isease, pleural effusion or pneumothorax. MEDIASTINUM AND HILAR STRUCTURES: No masses or contour abnormalities. HEART AND VASCULAR STRUCTURES: Enlarged stable. BONES: No acute findings. HARDWARE: Right internal jugular chest port catheter again with redundant tubing over right IJ and di stal tip terminating at the distal IJ, grossly stable OTHER: No other significant finding. IMPRESSION: Stable chronic interstitial change without evidence of acute cardiopulmonary process. Unchanged right-sided chest port with catheter tip terminating over distal IJ. TECHNICAL DOCUMENTATION: JOB ID: [id number] 2010 [employer]- All Rights Reserved Reading location - IP/workstation name: [email or web address]
[2019-09-11] MEDS: ALBUTEROL SULFATE 0.042% NEB (1.25 MG/3 ML) AMPUL NEB SCH ×2 (02:35→08:06)
[2019-09-11] MEDS: HEPARIN SOD (PORCINE) 5,000 UNIT/ML 1 ML VIAL SUBCUT SCH (05:21)
[2019-09-11] MEDS: MORPHINE SULFATE 10 MG/ML INJ IV PRN ×2 (05:43→09:46)
[2019-09-11] MEDS: ACETAMINOPHEN 325 MG TABLET PO PRN ×2 (05:46→10:44)
[2019-09-11 07:53] LABS: ANION GAP 6 (5-19); BLOOD UREA NITROGEN 14 mg/dL (7-20); CARBON DIOXIDE 35 mmol/L (22-30); CHLORIDE 96 mmol/L (98-107); GLUCOSE 114 mg/dL (75-110); POTASSIUM 3.5 mmol/L (3.6-5.0)
[2019-09-11] MEDS: DOCUSATE SODIUM 100 MG CAPSULE PO SCH (09:17)
[2019-09-11] MEDS: PREDNISONE 20 MG TABLET PO SCH (09:46)
[2019-09-11] MEDS: PANTOPRAZOLE SODIUM 40 MG TABLET.DR PO SCH (09:46)
[2019-09-11] MEDS: FLUTICASONE/UMECLIDIN/VILANTER 100-62.5-25 MCG/DOSE IH SCH (09:47)
[2019-09-11] MEDS: VANCOMYCIN HCL 1,500 MG in DEXTROSE 5%-WATER 250 ML IV SCH (09:48)
[2019-09-11] MEDS: BUPRENORPHINE HCL 2 MG SUBLINGUAL TABLET SL SCH (10:45)
--- NOTE | 2019-09-11 11:23 | PDOC DISCHARGE SUMMARY ---
Impression - Admit/DC Date/PCP Admission Date/Primary Care Provider: 09/04/19 13:23 GALA FINNEY MD Discharge Date: 09/11/19 - Discharge Diagnosis (1) Cellulitis of right lower extremity Is this a current diagnosis for this admission?: Yes (2) Hypoxia Is this a current diagnosis for this admission?: Yes (3) Lung cancer Is this a current diagnosis for this admission?: Yes (4) Asthma Is this a current diagnosis for this admission?: Yes (5) Opiate dependence Is this a current diagnosis for this admission?: Yes - Additional Information Discharge Diet: As Tolerated Discharge Activity: Activity As Tolerated Referrals: GALA FINNEY MD [Primary Care Provider] - Prescriptions: Sulfamethoxazole/Trimethoprim [Bactrim Ds Tablet] 1 each PO Q12 8 Days tablet Potassium Chloride 20 meq PO DAILY #20 tab.er.prt Home Medications: Albuterol Sulfate [Albuterol Sulfate Hfa] 1 puff IH Q6HP PRN 09/04/19 Buprenorphine HCl 8 mg PO Q12 09/04/19 Fluticasone/Umeclidin/Vilanter [Trelegy 100-62.5-25 Mcg Ellipta 14 Dose/Dpi] 1 puff IH DAILY 09/04/19 Hydrocortisone [Hydrocortisone 2.5% Cream 28 gm (Clinic Use)] 1 applic TOP BID 09/04/19 Linaclotide [Linzess] 72 mcg PO DAILY 09/04/19 Pantoprazole Sodium [Protonix [address] Tablet] 40 mg PO DAILY 09/04/19 Prednisone [Deltasone 20 mg Tablet] 20 mg PO DAILY 09/04/19 Tussionex 5 ml PO Q8HP PRN 09/04/19 Varenicline Tartrate [Chantix 1 mg Tablet] 1 mg PO BID 09/04/19 Potassium Chloride 20 meq PO DAILY #20 tab.er.prt 09/11/19 Sulfamethoxazole/Trimethoprim [Bactrim Ds Tablet] 1 each PO Q12 8 Days tablet 09/11/19 History of Present Illiness History of Present Illness: According to admitting provider: DYLAN SWARTZ is a 58 year old female with a history of lung cancer, COPD, and opiate dependence who presents with a 3-day history of right leg swelling. She says she was told that she had scabies and was given some treatment for it but she said it was very itchy and she has been scratching at her leg a lot. She said her left leg is been bothering her some but not to the extent that her right leg has been bothering her. She is noticed swelling in the leg for about 3 days. She is not noticed any exudates. No fevers. She has not had any treatment for it yet. She comes to the emergency department to be evaluated. She has erythema and swelling proximal to the knee all the way down to her foot. She said it hurts to bear weight on it. Hospital Course Hospital Course: (1) Cellulitis of right lower extremity Is this a current diagnosis for this admission?: Yes Plan: Ultrasound was negative for abscess or DVT. Patient had been on vancomycin for several days with significant improvement. Discharged on bactrim for 8 days. Physical therapy evaluated patient but recommending SNF. Patient declined SNF and was as such is been set up with home health for home PT, OT, home health aide of front-wheeled walker and a bedside commode. (2) Hypoxia Is this a current diagnosis for this admission?: Yes Plan: Patient was noted be on 5 L nasal cannula yesterday morning. Oxygen was successfully weaned to 2 to 3 L nasal cannula. Chest x-ray shows only chronic interstitial lung disease but unchanged since prior and no evidence of any new acute cardiopulmonary process. Continue incentive spirometer upon discharge. Continue supplemental oxygen upon discharge. (3) Lung cancer Qualifiers: Laterality: right Lung location: middle lobe of lung Qualified Code(s): C34.2 - Malignant neoplasm of middle lobe, bronchus or lung Is this a current diagnosis for this admission?: Yes Plan: She has had treatment and follows up with Dr. Finney. She informs me that it is right lung cancer and that she has undergone several sessions of chemo radiation in the past with last session of chemo being April 2019. (4) Asthma Qualifiers: Asthma severity: moderate Asthma persistence: persistent Asthma complication type: uncomplicated Qualified Code(s): J45.40 - Moderate persistent asthma, uncomplicated Is this a current diagnosis for this admission?: Yes Plan: Continue inhalers at home. No acute exacerbation. (5) Opiate dependence Qualifiers: Substance use status: uncomplicated Qualified Code(s): F11.20 - Opioid dependence, uncomplicated Is this a current diagnosis for this admission?: Yes Plan: She is on chronic buprenorphine, which we continue Physical Exam Vital Signs: Temp Pulse Resp BP Pulse Ox 98.6 F 95 16 114/70 94 09/11/19 07:13 09/11/19 08:08 09/11/19 08:08 09/11/19 07:13 09/11/19 08:08 Intake & Output 09/10/19 09/11/19 09/12/19 06:59 06:59 06:59 Intake Total 1321 2040 Output Total 1600 Balance 1321 440 Weight 95.2 kg 97.2 kg General appearance: PRESENT: no acute distress, cooperative Neck exam: ABSENT: JVD Respiratory exam: PRESENT: clear to auscultation javier Neurological exam: PRESENT: alert, awake, oriented to person, oriented to place, oriented to time Results Laboratory Results: WBC 5.6 10^3/uL (4.0-10.5) 09/07/19 05:30 RBC 4.19 10^6/uL (3.72-5.28) 09/07/19 05:30 Hgb 14.1 g/dL (12.0-15.5) 09/07/19 05:30 Hct 41.3 % (36.0-47.0) 09/07/19 05:30 MCV 99 fl (80-97) H 09/07/19 05:30 MCH 33.7 pg (27.0-33.4) H 09/07/19 05:30 MCHC 34.2 g/dL (32.0-36.0) 09/07/19 05:30 RDW 17.0 % (11.5-14.0) H 09/07/19 05:30 Plt Count 113 10^3/uL (150-450) L 09/07/19 05:30 Lymph % (Auto) Not Reportable 09/04/19 11:35 Schley % (Auto) Not Reportable 09/04/19 11:35 Eos % (Auto) Not Reportable 09/04/19 11:35 Baso % (Auto) Not Reportable 09/04/19 11:35 Absolute Neuts (auto) Not Reportable 09/04/19 11:35 Absolute Lymphs (auto) Not Reportable 09/04/19 11:35 Absolute Monos (auto) Not Reportable 09/04/19 11:35 Absolute Eos (auto) Not Reportable 09/04/19 11:35 Absolute Basos (auto) Not Reportable 09/04/19 11:35 Total Counted 100 09/04/19 11:35 Seg Neutrophils % Not Reportable 09/04/19 11:35 Seg Neuts % (Manual) 88 % (42-78) H 09/04/19 11:35 Band Neutrophils % 6 % (3-5) H 09/04/19 11:35 Lymphocytes % (Manual) 3 % (13-45) L 09/04/19 11:35 Atypical Lymphs % 1 % (0) 09/04/19 11:35 Monocytes % (Manual) 2 % (3-13) L 09/04/19 11:35 Eosinophils % (Manual) 0 % (0-6) 09/04/19 11:35 Basophils % (Manual) 0 % (0-2) 09/04/19 11:35 Abs Neuts (Manual) 8.4 10^3/uL (1.7-8.2) H 09/04/19 11:35 Abs Lymphs (Manual) 0.4 10^3/uL (0.5-4.7) L 09/04/19 11:35 Abs Monocytes (Manual) 0.2 10^3/uL (0.1-1.4) 09/04/19 11:35 Absolute Eos (Manual) 0.0 10^3/uL (0.0-0.6) 09/04/19 11:35 Abs Basophils (Manual) 0.0 10^3/uL (0.0-0.2) 09/04/19 11:35 Toxic Vacuolation PRESENT 09/04/19 11:35 Dohle Bodies PRESENT 09/04/19 11:35 Platelet Comment ADEQUATE 09/04/19 11:35 Anisocytosis 1+ 09/04/19 11:35 PT 15.9 SEC (11.4-15.4) H 09/04/19 12:10 INR 1.26 09/04/19 12:10 INR (Anticoag Therapy) Cancelled 09/04/19 11:35 VBG pH 7.38 (7.30-7.42) 09/04/19 11:35 VBG pCO2 52.5 mmHg (35-63) 09/04/19 11:35 VBG HCO3 30.1 mmol/L (20-32) 09/04/19 11:35 VBG Base Excess 3.6 mmol/L 09/04/19 11:35 Sodium 137.0 mmol/L (137-145) 09/11/19 06:20 Potassium 3.5 mmol/L (3.6-5.0) L 09/11/19 06:20 Chloride 96 mmol/L (98-107) L 09/11/19 06:20 Carbon Dioxide 35 mmol/L (22-30) H 09/11/19 06:20 Anion Gap 6 (5-19) 09/11/19 06:20 BUN 14 mg/dL (7-20) 09/11/19 06:20 Creatinine 0.71 mg/dL (0.52-1.25) 09/11/19 06:20 Est GFR ( Amer) > 60 (>60) 09/11/19 06:20 Est GFR (MDRD) Non-Af > 60 (>60) 09/11/19 06:20 Glucose 114 mg/dL (75-110) H 09/11/19 06:20 POC Glucose 93 mg/dL (70-110) 09/04/19 12:21 Lactic Acid 1.5 mmol/L (0.7-2.1) 09/04/19 17:40 Calcium 9.0 mg/dL (8.4-10.2) 09/11/19 06:20 Magnesium 1.8 mg/dL (1.6-2.3) 09/08/19 19:25 Total Bilirubin 0.8 mg/dL (0.2-1.3) 09/04/19 11:35 Direct Bilirubin 0.2 mg/dL (0.0-0.4) 09/04/19 11:35 Neonat Total Bilirubin Not Reportable 09/04/19 11:35 Neonat Direct Bilirubin Not Reportable 09/04/19 11:35 Neonat Indirect Bili Not Reportable 09/04/19 11:35 AST 57 U/L (14-36) H 09/04/19 11:35 ALT 22 U/L (<35) 09/04/19 11:35 Alkaline Phosphatase 118 U/L (38-126) 09/04/19 11:35 Total Protein 6.8 g/dL (6.3-8.2) 09/04/19 11:35 Albumin 3.2 g/dL (3.5-5.0) L 09/04/19 11:35 Time Trough Drawn 0709/09/19 07:20 Vancomycin Trough 25.9 ug/mL (5.0-20.0) H 09/09/19 07:20 Impressions: Venous Doppler Study 09/04/19 11:23 IMPRESSION: NO EVIDENCE OF DVT OR SVT IN THE RIGHT LEG. Extremity Ultrasound 09/08/19 00:00 IMPRESSION: There is a 4 mm thickness 2.6 cm by 4.5 cm fluid collection in the cutaneous- subcutaneous soft tissues on the dorsum of the right foot. Chest X-Ray 09/10/19 00:00 IMPRESSION: Stable chronic interstitial change without evidence of acute cardiopulmonary process. Unchanged right-sided chest port with catheter tip terminating over distal IJ. Plan Time Spent: Less than 30 Minutes Stroke Is this a Stroke Patient?: No Acute Heart Failure - Is this a Heart Failure Patient?: No
[2019-09-11 12:53] VITALS: BP 100/70
== END 2019-09-11 13:41 | disposition home health service (06) | DRG 603 ==
LOC: ER 11:06 → EH 13:23 → 4W 15:59 → 4N 09-05 18:42
PROVIDERS: ADMIT Family Medicine; ATTEND Internal Medicine
DX: L03.115 Cellulitis of right lower limb (principal); C34.2 Malignant neoplasm of middle lobe, bronchus or lung; F11.20 Opioid dependence, uncomplicated; J44.9 Chronic obstructive pulmonary disease, unspecified; I10 Essential (primary) hypertension; M19.90 Unspecified osteoarthritis, unspecified site; F10.20 Alcohol dependence, uncomplicated; B86 Scabies; J45.40 Moderate persistent asthma, uncomplicated; Z87.891 Personal history of nicotine dependence; Z88.0 Allergy status to penicillin; Z79.51 Long term (current) use of inhaled steroids; Z88.8 Allergy status to other drugs, medicaments and biological substances; R09.02 Hypoxemia
CPT/HCPCS: 36415; 71046; 76881; 80048; 80053; 80202; 82803; 82962; 83605; 83735; 85025; 85027; 85610; 87040; 93005; 93010; 93971; 94799; 96374; 99285; J0571; J1642; J1644; J2270; J3370; J3490; J7060; J7512

== ENCOUNTER 2019-11-17 15:00 | Inpatient (IN) | payer OTHER ==
[2019-11-17] MEDS ORDERED: DOPAMINE HCL/DEXTROSE 5%-WATER 800 MG/250 ML RTUINJ IV PRN (15:17)
[2019-11-17] MEDS ORDERED: NORMAL SALINE IV PRN (15:23)
[2019-11-17] MEDS ORDERED: AZTREONAM 1 GM in DEXTROSE 5%-WATER 50 ML IV SCH (15:30)
[2019-11-17 15:31] LABS: VENOUS BLOOD BASE EXCESS -0.6 mmol/L; VENOUS BLOOD HCO3 26.4 mmol/L (20-32); VENOUS BLOOD PCO2 52.5 mmHg (35-63); VENOUS BLOOD PH 7.32 (7.30-7.42)
[2019-11-17 15:33] LABS: ABSOLUTE LYMPHOCYTES (AUTO) 0.9 10^3/uL (0.5-4.7); ABSOLUTE MONOCYTES (AUTO) 0.7 10^3/uL (0.1-1.4); ABSOLUTE NEUT (AUTO) 5.1 10^3/uL (1.7-8.2); BASOPHILS % (AUTO) 0.4 % (0-2); EOSINOPHILS % (AUTO) 0.3 % (0-6); HEMOGLOBIN 13.5 g/dL (12.0-15.5); MEAN CORPUSCULAR HEMOGLOBIN 31.2 pg (27.0-33.4); MEAN CORPUSCULAR HGB CONC 33.8 g/dL (32.0-36.0); MEAN CORPUSCULAR VOLUME 92 fl (80-97); MONOCYTES % (AUTO) 10.2 % (3-13); PLATELET COUNT 163 10^3/uL (150-450); RED BLOOD COUNT 4.33 10^6/uL (3.72-5.28); RED CELL DISTRIBUTION WIDTH 18.6 % (11.5-14.0); SEGMENTED NEUTROPHILS % (AUTO) 75.1 % (42-78); TOTAL CELLS COUNTED % (AUTO) 100 %; WHITE BLOOD COUNT 6.8 10^3/uL (4.0-10.5)
[2019-11-17 15:35] LABS: INTERNATIONAL RATION (INR) 1.04; PROTHROMBIN TIME 13.8 SEC (11.4-15.4)
[2019-11-17 15:49] LABS: ALBUMIN 3.2 g/dL (3.5-5.0); ALKALINE PHOSPHATASE 170 U/L (38-126); ANION GAP 13 (5-19); ASPARTATE AMINO TRANSFERASE 44 U/L (14-36); BILIRUBIN,DIRECT 0.2 mg/dL (0.0-0.4); BILIRUBIN,TOTAL 0.6 mg/dL (0.2-1.3); BLOOD UREA NITROGEN 7 mg/dL (7-20); CALCIUM 9.2 mg/dL (8.4-10.2); CARBON DIOXIDE 27 mmol/L (22-30); CHLORIDE 94 mmol/L (98-107); GLUCOSE 103 mg/dL (75-110); POTASSIUM 3.7 mmol/L (3.6-5.0); TOTAL PROTEIN 7.9 g/dL (6.3-8.2)
--- NOTE | 2019-11-17 16:00 | RADIOLOGY REPORT (SQ) ---
EXAM DESCRIPTION: CHEST SINGLE VIEW IMAGES COMPLETED DATE/TIME: 11/17/2019 3:51 pm REASON FOR STUDY: Possible sepsis COMPARISON: 09/10/2019 EXAM PARAMETERS: NUMBER OF VIEWS: One view. TECHNIQUE: Single frontal radiographic view of the chest acquired. RADIATION DOSE: NA LIMITATIONS: None. FINDINGS: LUNGS AND PLEURA: Chronic interstitial changes. Left basilar scarring. No infiltrate. MEDIASTINUM AND HILAR STRUCTURES: Stable. HEART AND VASCULAR STRUCTURES: Cardiomegaly. Normal vasculature. BONES: No acute findings. HARDWARE: None in the chest. OTHER: Stable position of right-sided port. IMPRESSION: NO ACUTE RADIOGRAPHIC FINDING IN THE CHEST. TECHNICAL DOCUMENTATION: JOB ID: [id number] 2010 [email or web address]- All Rights Reserved Reading location - IP/workstation name: [email or web address]
--- NOTE | 2019-11-17 17:23 | ER Document Report ---
ED General - General Chief Complaint: Wound Infection Stated Complaint: POSSIBLE SEPSIS Time Seen by Provider: 11/17/19 15:08 Notes: This 58-year-old woman presents to the emergency department via EMS with complaint of a decubitus ulcer on her right buttock which is draining a pink and white material. She also has an open sore under the right breast with a thick secretion noted. There is a open necrotic foul-smelling purulent open wound at the right foot. The patient was hospitalized for similar reasons recently. Apparently had no follow-up and has had poor medical care/refusing medical care since she left the hospital. According to , the patient is a heavy drinker daily alcohol use and ingestion of liquor jovanny and beers every day. She has been brought back to the hospital because of a deteriorating status. Poor intake of food and increasing weakness. TRAVEL OUTSIDE OF THE [place] IN LAST 30 DAYS: No - Related Data Allergies/Adverse Reactions: aspirin [Aspirin] Allergy (Verified 10/06/18 17:54) NSAIDS (Non-Steroidal Anti-Inflamma [Nsaids] Allergy (Verified 10/06/18 17:54) Penicillins Allergy (Verified 10/06/18 17:54) Home Medications: Hydroxyzine, Buprenorphine, Albuterol, Protonix, Trelegy, Gabapentin Past Medical History - Social History Smoking Status: Current Every Day Smoker Frequency of alcohol use: Heavy Family History: Reviewed & Not Pertinent - Past Medical History Cardiac Medical History: Reports: Hx Hypertension Denies: Hx Coronary Artery Disease, Hx Heart Attack Pulmonary Medical History: Reports: Hx Asthma, Hx Bronchitis, Hx COPD, Hx Pneumonia Neurological Medical History: Denies: Hx Cerebrovascular Accident, Hx Seizures Renal/ Medical History: Denies: Hx Peritoneal Dialysis Musculoskeletal Medical History: Reports Hx Arthritis Psychiatric Medical History: Reports: Hx Depression Past Surgical History: Reports: Hx Tubal Ligation - Immunizations Hx Diphtheria, Pertussis, Tetanus Vaccination: Yes Review of Systems - Review of Systems Notes: Constitutional: Negative for fever. HENT: Negative for sore throat. Eyes: Negative for visual changes. Cardiovascular: Negative for chest pain. Respiratory: Negative for shortness of breath. Gastrointestinal: Negative for abdominal pain, vomiting or diarrhea. Genitourinary: Negative for dysuria. Musculoskeletal: Negative for back pain. Skin: See HPI Neurological: Negative for headaches, weakness or numbness. 10 point ROS negative except as marked above and in HPI. Physical Exam - Vital signs Vitals: Temp Resp Pulse Ox 97.7 F 24 H 96 11/17/19 15:17 11/17/19 15:17 11/17/19 15:17 - Notes Notes: PHYSICAL EXAMINATION: Physical Exam: General: Chronically ill 58-year-old woman in no acute distress HEENT: NC/AT, pupils equal round and reactive to light, MM moist,nares clear, oropharynx clear, airway patent Neck: supple, no adenopathy, no masses. Good range of motion Lungs: clear, no wheezing, no rales no rhonchi CVS: Regular rate and rhythm no murmur gallop or rub Abdomen: Soft, active, nontender, no masses, no hepatosplenomegaly Ext: No edema, clubbing or cyanosis. Neuro: Alert and responsive, moving all 4 extremities on command, cranial nerves intact, no focal findings Skin: Right foot with a dorsal foot ulcer with a exudative surface and purulent drainage. Right buttock with a stage II decubitus ulcer, area under the right breast which is erythematous and draining a mucopurulent drainage. Course - Re-evaluation Re-evalutation: 11/17/19 17:18 Patient is uncomfortable with pain in her right buttock area. Large amount of green exudate draining from the area under the left breast with breakdown the skin also noted in the waist on the right side under the pannus. 11/17/19 17:42 I spoken to the hospitalist, Dr. Edmonds, patient will be admitted to the hospitalist service for further evaluation and treatment. 11/17/19 17:44 Wound cultures will be collected from the area above the breast and also off of her right foot. Vancomycin is added to her antibiotic coverage. 11/17/19 18:55 Of note the patient's lactate initial 1.8, repeated after fluids, now 3.7. - Vital Signs Vital signs: Temp Pulse Resp BP Pulse Ox 97.7 F 22 H 110/78 96 11/17/19 15:23 11/17/19 18:01 11/17/19 18:01 11/17/19 17:17 - Laboratory Result Diagrams: 11/17/19 15:02 11/17/19 15:02 Laboratory results interpreted by me: 11/17/19 11/17/1920 15:02 15:02 15:02 RDW 18.6 H ESR 54 H Sodium 133.7 L Chloride 94 L Creatinine 0.47 L Lactic Acid AST 44 H Alkaline Phosphatase 170 H C-Reactive Protein Albumin 3.2 L 11/17/19 11/17/19 15:02 18:00 RDW ESR Sodium Chloride Creatinine Lactic Acid 3.7 H AST Alkaline Phosphatase C-Reactive Protein 201.9 H Albumin - Diagnostic Test Radiology reviewed: Image reviewed, Reports reviewed Radiology results interpreted by me: 11/17/19 17:40 Chest x-ray: No acute cardiopulmonary disease. - EKG Interpretation by Me EKG shows normal: [place] - Normal, Intervals - Normal, QRS Complexes - Normal Rate: Tachycardia - sinus tachycardia, rate 108. Q waves II, III, and F no acute ST or T wave abnormalities, no ischemic findings. Compared to a prior EKG there is no interval changes. When compared to previous EKG there are: No significant change Discharge - Discharge Clinical Impression: Cellulitis of chest wall, Decubitus ulcer of right buttock, stage 2, Intertrigo, Non-compliance Ulcer of left foot Qualifiers: Non-pressure ulcer stage: with other severity Qualified Code(s): L97.528 - Non- pressure chronic ulcer of other part of left foot with other specified severity Sepsis Qualifiers: Sepsis type: sepsis due to unspecified organism Sepsis acute organ dysfunction status: unspecified Qualified Code(s): A41.9 - Sepsis, unspecified organism Condition: Good Disposition: ADMITTED INPATIENT Admitting Provider: Grey (Hospitalist) Unit Admitted: Medical Floor
[2019-11-17] MEDS ORDERED: VANCOMYCIN HCL INJ 1000 MG VIAL IV ONE (17:46)
[2019-11-17] MEDS ORDERED: LORAZEPAM INJ 2 MG/1 ML VIAL IV PRN (18:11)
[2019-11-17] MEDS ORDERED: RINGERS SOLUTION,LACTATED 1,000 ML IV PRN (18:12)
[2019-11-17] MEDS ORDERED: VANCOMYCIN HCL 0 MG in DEXTROSE 5%-WATER 250 ML IV NR (18:15)
[2019-11-17] MEDS ORDERED: ONDANSETRON HCL INJ/PF 4 MG/2 ML SDV IV PRN (18:16)
[2019-11-17] MEDS ORDERED: PROMETHAZINE HCL INJ 25 MG/1 ML VIAL IV PRN (18:16)
[2019-11-17] MEDS ORDERED: MAGNESIUM HYDROXIDE SUSP 30 ML UDCUP PO PRN (18:16)
--- NOTE | 2019-11-17 18:29 | RADIOLOGY REPORT (SQ) ---
EXAM DESCRIPTION: FOOT RIGHT COMPLETE IMAGES COMPLETED DATE/TIME: 11/17/2019 6:17 pm REASON FOR STUDY: Healing wound, rule out osteomyelitis COMPARISON: None. NUMBER OF VIEWS: Three views. TECHNIQUE: AP, lateral and oblique radiographic images acquired of the right foot. LIMITATIONS: None. FINDINGS: MINERALIZATION: Osteopenia. BONES: Linear lucencies are noted at the bases of the 2nd and 3rd proximal phalanges. Ill defined ar eas of lucency are noted at the heads of the 4th and 5th metatarsals. SOFT TISSUES: There is diffuse soft tissue edema. There is a skin defect at the dorsum of the foot, probably corresponding to known wound. IMPRESSION: 1. Linear lucencies at the bases of the 2nd and 3rd proximal phalanges, may represent a rtifact versus nondisplaced fractures. Please correlate with point tenderness. 2. Ill-defined areas of lucency at the heads of the 4th and 5th right metatarsals, underlying osteomy elitis cannot be excluded. Contrast-enhanced MRI can help in further evaluation. 3. Diffuse soft tissue edema. Skin defect at the dorsum of the right foot, probably corresponding to known wound. TECHNICAL DOCUMENTATION: JOB ID: [id number] 2010 [employer]- All Rights Reserved Reading location - IP/workstation name: [email or web address]
--- NOTE | 2019-11-17 18:35 | PDOC H&P ---
History of Present Illness Admission Date/PCP: 11/17/19 18:04 RAUL LANZA MD History of Present Illness: DYLAN SWARTZ is a 58 year old female past medical history of lung cancer, COPD, opiate dependency, morbid obesity, chronic bilateral lower extremity stasis dermatitis, EtOH abuse, tobacco abuse, who was recently admitted at [facility] for right lower extremity cellulitis, and was DC'd home on home PT, OT and home health front wheel walker, bedside commode and p.o. antibiotics. Today patient is presenting to ED complaining of extensive right buttocks decubitus ulcer, right upper chest below the breast wound, and right foot foul-smelling purulent open wound. Unfortunate patient has a poor follow-up, living with her and as per has been drinking daily heavily. Patient is stating that she finished with her antibiotics but has not followed up with her PCP. Today she is stating that she is feeling sore everywhere however denies any fever, shortness of breath, chest pain, chills, diarrhea or constipation. She has low appetite however is p.o. tolerant. In ED she was noted to have extensive right buttock decubitus ulcer, right anterior chest extensive candidiasis, and right foot posterior aspect necrotic foul-smelling wound. Hospitalist was consulted for admission. Past Medical History Cardiac Medical History: Reports: Hypertension Denies: Coronary Artery Disease, Myocardial Infarction Pulmonary Medical History: Reports: Asthma, Bronchitis, Chronic Obstructive Pulmonary Disease (COPD), Pneumonia Neurological Medical History: Denies: Seizures Musculoskeltal Medical History: Reports: Arthritis Psychiatric Medical History: Reports: Depression Hematology: Reports: Anemia Past Surgical History Past Surgical History: Reports: Tubal Ligation Social History Smoking Status: Current Every Day Smoker Frequency of Alcohol Use: Occasional Hx Recreational Drug Use: Yes Hx Prescription Drug Abuse: Yes Family History Family History: Reviewed & Not Pertinent Parental Family History Reviewed: Yes Children Family History Reviewed: Yes Sibling(s) Family History Reviewed.: Yes Medication/Allergy Home Medications: Albuterol Sulfate [Albuterol Sulfate Hfa] 1 puff IH Q6HP PRN 09/04/19 Buprenorphine HCl 8 mg PO Q12 09/04/19 Fluticasone/Umeclidin/Vilanter [Trelegy 100-62.5-25 Mcg Ellipta 14 Dose/Dpi] 1 puff IH DAILY 09/04/19 Hydrocortisone [Hydrocortisone 2.5% Cream 28 gm (Clinic Use)] 1 applic TOP BID 09/04/19 Linaclotide [Linzess] 72 mcg PO DAILY 09/04/19 Pantoprazole Sodium [Protonix [address] Tablet] 40 mg PO DAILY 09/04/19 Prednisone [Deltasone 20 mg Tablet] 20 mg PO DAILY 09/04/19 Tussionex 5 ml PO Q8HP PRN 09/04/19 Varenicline Tartrate [Chantix 1 mg Tablet] 1 mg PO BID 09/04/19 Potassium Chloride 20 meq PO DAILY #20 tab.er.prt 09/11/19 Sulfamethoxazole/Trimethoprim [Bactrim Ds Tablet] 1 each PO Q12 8 Days tablet 09/11/19 Allergies/Adverse Reactions: aspirin [Aspirin] Allergy (Verified 10/06/18 17:54) NSAIDS (Non-Steroidal Anti-Inflamma [Nsaids] Allergy (Verified 10/06/18 17:54) Penicillins Allergy (Verified 10/06/18 17:54) Review of Systems Review of Systems: as per hpi Physical Exam Vital Signs: Temp Pulse Resp BP Pulse Ox 97.7 F 22 H 110/78 96 11/17/19 15:23 11/17/19 18:01 11/17/19 18:01 11/17/19 17:17 Intake & Output 11/16/19 11/17/19 11/18/19 06:59 06:59 06:59 Weight 83 kg General appearance: PRESENT: disheveled, obese Head exam: PRESENT: atraumatic, normocephalic Respiratory exam: PRESENT: clear to auscultation javier. ABSENT: rales, rhonchi, wheezes Cardiovascular exam: PRESENT: RRR. ABSENT: diastolic murmur, rubs, systolic murmur GI/Abdominal exam: PRESENT: distended, normal bowel sounds, soft. ABSENT: guarding, mass, organolmegaly, rebound, tenderness Neurological exam: PRESENT: alert, awake, oriented to person, oriented to place, oriented to time, oriented to situation, CN II-XII grossly intact. ABSENT: motor sensory deficit Skin exam: PRESENT: other - Right foot dorsal aspect 5 x 5 cm deep ulcer with purulent and foul-smelling discharge. Right buttock stage II decubitus ulcer, right chest under breast extensive erythematous with mucopurulent greenish discharge. Results Laboratory Results: 11/17/19 15:02 11/17/19 15:02 11/17/19 11/17/19 11/17/19 15:02 15:02 15:05 WBC 6.8 RBC 4.33 Hgb 13.5 Hct 40.0 MCV 92 MCH 31.2 MCHC 33.8 RDW 18.6 H Plt Count 163 Seg Neutrophils % 75.1 VBG pH 7.32 VBG pCO2 52.5 VBG HCO3 26.4 VBG Base Excess -0.6 Sodium 133.7 L Potassium 3.7 Chloride 94 L Carbon Dioxide 27 Anion Gap 13 BUN 7 Creatinine 0.47 L Est GFR ( Amer) > 60 Glucose 103 Lactic Acid Calcium 9.2 Total Bilirubin 0.6 AST 44 H Alkaline Phosphatase 170 H Total Protein 7.9 Albumin 3.2 L 11/17/19 15:05 WBC RBC Hgb Hct MCV MCH MCHC RDW Plt Count Seg Neutrophils % VBG pH VBG pCO2 VBG HCO3 VBG Base Excess Sodium Potassium Chloride Carbon Dioxide Anion Gap BUN Creatinine Est GFR ( Amer) Glucose Lactic Acid 1.8 Calcium Total Bilirubin AST Alkaline Phosphatase Total Protein Albumin Impressions: Chest X-Ray 11/17/19 15:18 IMPRESSION: NO ACUTE RADIOGRAPHIC FINDING IN THE CHEST. Assessment and Plan - Diagnosis (1) Right foot ulcer Qualifiers: Non-pressure ulcer stage: with fat layer exposed Qualified Code(s): L97.512 - Non-pressure chronic 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 layer exposed Is this a current diagnosis for this admission?: Yes Plan: Right foot dorsal aspect 5.5 cm necrotic ulcer with fat layer is exposed. Obtain x-ray to rule out osteomyelitis. Broad-spectrum empiric IV antibiotics, wound culture, arterial Doppler, wound care, surgical consultation. (2) Cellulitis of chest wall Is this a current diagnosis for this admission?: Yes Plan: This is most likely extensive candidiasis or chest wall cellulitis. Patient does not have diabetes however is morbidly obese. Wound care, empiric broad-spectrum IV antibiotic, oral and topical antifungals. (3) Obesity Qualifiers: Body mass index: BMI 34.0-34.9 Is this a current diagnosis for this admission?: Yes Plan: Diet and lifestyle modification recommended. (4) Tobacco abuse Is this a current diagnosis for this admission?: Yes Plan: Currently taking Chantix. Resume home meds. (5) Decubitus ulcer of right buttock, stage 2 Is this a current diagnosis for this admission?: Yes Plan: Stage II decubitus ulcer. Wound care. Frequent repositioning. Broad-spectrum IV antibiotics. Surgical consultation. (6) Alcohol dependency Qualifiers: Is this a current diagnosis for this admission?: Yes Plan: Daily alcohol drinker. Does not seem to be withdrawing. Folic acid, thiamine, multivitamins, D5NS, benzodiazepines, fall, seizure and aspiration precautions. (7) Asthma Qualifiers: Asthma severity: moderate Is this a current diagnosis for this admission?: Yes Plan: Does not appear to be exacerbated. Resume home meds. PRN duo nebs, supplemental oxygen, PRN BiPAP. (8) Opiate dependence Qualifiers: Substance use status: uncomplicated Qualified Code(s): F11.20 - Opioid dependence, uncomplicated Is this a current diagnosis for this admission?: Yes Plan: Currently taking buprenorphine. Resume home meds. Monitor for withdrawal. - Time Time Spent with patient: 35 or more minutes Smoking Cessation Education: 3 to 10 minutes Medications reviewed and adjusted accordingly: Yes Anticipated Discharge Disposition: [facility] Anticipated Discharge Timeframe: within 72 hours
[2019-11-17] MEDS: FLUCONAZOLE 100 MG TABLET PO SCH (19:34)
[2019-11-17] MEDS: NYSTATIN CREAM 15 GM TP SCH (19:35)
[2019-11-17] MEDS: FOLIC ACID 1 MG TABLET PO SCH (19:35)
[2019-11-17] MEDS: THIAMINE HCL 100 MG TABLET PO SCH (19:35)
--- NOTE | 2019-11-17 20:38 | EKG REPORT ---
SEVERITY:- ABNORMAL ECG - SINUS TACHYCARDIA PROBABLE INFERIOR INFARCT, AGE INDETERMINATE : Confirmed by: Diaz Chairez MD 17-Nov-2019 20:37:31
[2019-11-17] MEDS ORDERED: AZTREONAM INJ 1 GM VIAL IV SCH (22:45)
[2019-11-17] MEDS: AZTREONAM 1 GM in DEXTROSE 5%-WATER 50 ML IV SCH (22:53)
[2019-11-17] MEDS: FAMOTIDINE 20 MG TABLET PO SCH (22:53)
[2019-11-18] MEDS: AZTREONAM 1 GM in DEXTROSE 5%-WATER 50 ML IV SCH ×3 (05:13→22:58)
[2019-11-18] MEDS: IPRATROPIUM/ALBUTEROL 0.5-2.5 MG/3 ML AMPUL NEB PRN ×2 (05:41→09:24)
[2019-11-18] MEDS ORDERED: VANCOMYCIN HCL INJ 500 MG VIAL ONE (05:56)
[2019-11-18] MEDS ORDERED: VANCOMYCIN HCL INJ 1000 MG VIAL ONE (05:57)
[2019-11-18] MEDS ORDERED: VANCOMYCIN HCL 1,250 MG in DEXTROSE 5%-WATER 250 ML IV ONE (06:00)
[2019-11-18] MEDS ORDERED: VANCOMYCIN HCL INJ 1000 MG VIAL IV PRN (06:00)
[2019-11-18 06:33] LABS: HEMATOCRIT 42.7 % (36.0-47.0); HEMOGLOBIN 14.2 g/dL (12.0-15.5); MEAN CORPUSCULAR HEMOGLOBIN 30.9 pg (27.0-33.4); MEAN CORPUSCULAR HGB CONC 33.2 g/dL (32.0-36.0); MEAN CORPUSCULAR VOLUME 93 fl (80-97); PLATELET COUNT 143 10^3/uL (150-450); RED BLOOD COUNT 4.59 10^6/uL (3.72-5.28); RED CELL DISTRIBUTION WIDTH 18.7 % (11.5-14.0)
[2019-11-18 06:38] LABS: INTERNATIONAL RATION (INR) 0.91; PROTHROMBIN TIME 12.5 SEC (11.4-15.4)
[2019-11-18 06:49] LABS: ALBUMIN 2.5 g/dL (3.5-5.0); ALKALINE PHOSPHATASE 122 U/L (38-126); ANION GAP 6 (5-19); ASPARTATE AMINO TRANSFERASE 42 U/L (14-36); BILIRUBIN,DIRECT 0.1 mg/dL (0.0-0.4); BILIRUBIN,TOTAL 0.5 mg/dL (0.2-1.3); BLOOD UREA NITROGEN 5 mg/dL (7-20); CALCIUM 8.5 mg/dL (8.4-10.2); CARBON DIOXIDE 28 mmol/L (22-30); CHLORIDE 100 mmol/L (98-107); POTASSIUM 3.9 mmol/L (3.6-5.0); TOTAL PROTEIN 6.4 g/dL (6.3-8.2)
[2019-11-18 07:02] LABS: GLUCOSE 69 mg/dL (75-110)
[2019-11-18] MEDS ORDERED: DEXTROSE 50%-WATER 25 GM/50 ML DISP.SYRIN IV ONE ×2 (07:10→08:30)
[2019-11-18] MEDS ORDERED: DEXTROSE 40% GEL 15 GM TUBE PO PRN ×2 (07:46)
[2019-11-18] MEDS ORDERED: GLUCAGON,HUMAN RECOMB 1 MG INJ IM PRN (07:46)
[2019-11-18] MEDS ORDERED: DEXTROSE 50%-WATER 25 GM/50 ML DISP.SYRIN IV PRN ×2 (07:46)
[2019-11-18] MEDS ORDERED: LIDOCAINE 1% INJ-PF (10 MG/ML) 30 ML SDV INJ PRN (08:00)
[2019-11-18] MEDS: INSULIN LISPRO 100 UNIT/ML 3 ML VIAL SUBCUT SCH ×4 (08:42→22:58)
[2019-11-18] MEDS ORDERED: LIDOCAINE 1% INJ-PF (10 MG/ML) 30 ML SDV ONE (09:11)
[2019-11-18] MEDS: DEXTROSE 5%-WATER 1000 ML 1,000 ML IV PRN (09:32)
--- NOTE | 2019-11-18 09:46 | Operative Report ---
Operative Report DATE OF SURGERY: 11/18/19 PREOPERATIVE DIAGNOSIS: 1. Respiratory insufficiency. 2. Septic right foot w ith large eschar dorsal surface POSTOPERATIVE DIAGNOSIS: Same OPERATION: Excisional debridement of skin, subcutaneous tissue and necrotic superficial fascia right foot SURGEON: GABBY MANCILLA ANESTHESIA: Local TISSUE REMOVED OR ALTERED: Nonviable tissue right foot COMPLICATIONS: None ESTIMATED BLOOD LOSS: Minimal INTRAOPERATIVE FINDINGS: See below PROCEDURE: He was seen in room 434. She was very anxious, short of breath, with orthopnea. The right foot was exposed. Findings were significant for 5+ centimeters eschar full-thickness dorsum right foot. Remainder the foot with generalized swelling, edema, erythema. I could not express any pus from the wound directly. The right foot was prepped with Betadine. Surgical timeout conducted. The top of the foot was wiped with Betadine, and anesthetized with 1% plain lidocaine. Using a number 10 blade, and tenotomy scissors, the full-thickness eschar was excised from the dorsum of the right foot including skin and subcutaneous tissue. Watery fluid was expressed but no parveen pus. The procedure was aborted as the patient became uncontrollably agitated short of breath, with rhonchorous breathing and excessive sputum. Foot dressed with Betadine 4 x 4, Kerlix. Recommendations: 1. Address acute pulmonary issue now; I spoke with Dr. Edmonds 2. We will follow patient with you. Right foot is compromised due to large open foot wound on dorsal surface, changes involving multiple phalanges and metatarsal head suspicious for osteomyelitis. Agree with empiric antibiotic therapy; however patient may be heading for a foot amputation.
[2019-11-18] MEDS: DOCUSATE SODIUM 100 MG CAPSULE PO SCH ×2 (09:50→17:33)
[2019-11-18] MEDS: OXYCODONE-ACETAMINOPHEN 5-325 MG TABLET PO PRN ×2 (09:50→17:33)
[2019-11-18] MEDS: FAMOTIDINE 20 MG TABLET PO SCH ×2 (09:50→22:59)
[2019-11-18] MEDS: MAGNESIUM OXIDE 400 MG TABLET PO SCH ×2 (09:50→17:33)
[2019-11-18] MEDS: BUPRENORPHINE HCL 2 MG SUBLINGUAL TABLET SL SCH (09:52)
[2019-11-18] MEDS: FOLIC ACID 1 MG TABLET PO SCH (09:52)
[2019-11-18] MEDS: THIAMINE HCL 100 MG TABLET PO SCH (09:52)
[2019-11-18] MEDS: GUAIFENESIN/CODEINE PHOS 100-10 MG/ 5 ML UDC PO PRN ×2 (09:52→17:33)
[2019-11-18] MEDS: FLUTICASONE/UMECLIDIN/VILANTER 100-62.5-25 MCG/DOSE IH SCH (09:53)
[2019-11-18] MEDS: ENOXAPARIN SODIUM INJ 40 MG/0.4 ML DISP.SYRIN SUBCUT SCH (09:53)
[2019-11-18] MEDS: VARENICLINE TARTRATE 1 MG TABLET PO SCH (09:54)
[2019-11-18] MEDS: FLUCONAZOLE 100 MG TABLET PO SCH (10:15)
[2019-11-18] MEDS: ZINC SULFATE 220 MG CAPSULE PO SCH (10:16)
--- NOTE | 2019-11-18 13:13 | RADIOLOGY REPORT (SQ) ---
EXAM DESCRIPTION: ARTERIAL LOWER EXTREM BILAT IMAGES COMPLETED DATE/TIME: 11/18/2019 1:01 pm REASON FOR STUDY: Nonhealing lower extremity wounds COMPARISON: None. TECHNIQUE: Dynamic and static feng scale and color images acquired of the lower extremity arteries. Additional selected spectral images recorded. ABIs recorded. LIMITATIONS: None. FINDINGS: RIGHT LEG: ABIS: Not available INFLOW ARTERIES: Triphasic inflow. No high-grade stenosis. FEMORAL ARTERIES:Multiphasic waveforms. Normal, no velocity elevation to suggest focal stenosis. Norm al color Doppler evaluation. No aneurysm. POPLITEAL ARTERY:Multiphasic waveforms. Normal, no velocity elevation to suggest focal stenosis. Norm al color Doppler evaluation. No aneurysm. PATENT TIBIOPERONEAL TRUNK AND 3 VESSEL RUNOFF: Yes, normal vessels. TBI: Not performed. OTHER: No other significant finding. LEFT LEG: ABIS: Not available. INFLOW ARTERIES: Triphasic inflow. No high-grade stenosis. FEMORAL ARTERIES:Multiphasic waveforms. Normal, no velocity elevation to suggest focal stenosis. Norm al color Doppler evaluation. No aneurysm. POPLITEAL ARTERY:Multiphasic waveforms. Normal, no velocity elevation to suggest focal stenosis. Norm al color Doppler evaluation. No aneurysm. PATENT TIBIOPERONEAL TRUNK AND 3 VESSEL RUNOFF: Yes, normal vessels. TBI: Not performed. OTHER: No other significant finding. IMPRESSION: 1. Triphasic inflow. 2. No focal stenosis. COMMENT: MARIALUISA NORMAL: Greater than 1.0 MINIMAL DISEASE: 0.9 to 1.0 CLAUDICATION: 0.5 to 0.9 SEVERE ARTERIAL DISEASE: Less than 0.5 [facility] NORMAL: Greater than 1.0 (1.2 If Heavy Calcifications) NORMAL TO MILD ISCHEMIA: 0.8 to 1.0 MODERATE ISCHEMIA: 0.4 to 0.8 SEVERE ISCHEMIA: Less than 0.4 TECHNICAL DOCUMENTATION: JOB ID: [id number] [employer]- All Rights Reserved Reading location - IP/workstation name: [email or web address]
--- NOTE | 2019-11-18 13:19 | PDOC PROGRESS REPORT ---
Subjective Progress Note for:: 11/18/19 Subjective:: DYLAN SWARTZ is a 58 year old female past medical history of lung cancer, COPD, opiate dependency, morbid obesity, chronic bilateral lower extremity stasis dermatitis, EtOH abuse, tobacco abuse, who was recently admitted at [facility] for right lower extremity cellulitis, and was DC'd home on home PT, OT and home health front wheel walker, bedside commode and p.o. antibiotics. Today patient is presenting to ED complaining of extensive right buttocks decubitus ulcer, right upper chest below the breast wound, and right foot foul-smelling purulent open wound. Unfortunate patient has a poor follow-up, living with her and as per has been drinking daily heavily. Patient is stating that she finished with her antibiotics but has not followed up with her PCP. Today she is stating that she is feeling sore everywhere however denies any fever, shortness of breath, chest pain, chills, diarrhea or constipation. She has low appetite however is p.o. tolerant. In ED she was noted to have extensive right buttock decubitus ulcer, right anterior chest extensive candidiasis, and right foot posterior aspect necrotic foul-smelling wound. Hospitalist was consulted for admission. 11/18/2019. Saw patient this morning complaining of shortness of breath and righ t leg pain she status post I&D at bedside, surgery is on board and she is scheduled to go to the OR for evaluation of her right buttocks decubitus ulcers, denies any fever, chills, nausea, vomiting. Reason For Visit: CELLULITIS, DECUBITUS ULCER Physical Exam Vital Signs: Temp Pulse Resp BP Pulse Ox 98.6 F 52 L 22 H 124/61 98 11/18/19 10:57 11/18/19 10:57 11/18/19 10:57 11/18/19 10:57 11/18/19 10:57 Intake & Output 11/17/19 11/18/19 11/19/19 06:59 06:59 06:59 Intake Total 2850 610 Output Total 880 Balance 1970 610 Weight 83 kg 102.6 kg General appearance: PRESENT: mild distress, well-developed, well-nourished Head exam: PRESENT: atraumatic, normocephalic Respiratory exam: PRESENT: clear to auscultation javier. ABSENT: rales, rhonchi, wheezes Cardiovascular exam: PRESENT: RRR. ABSENT: diastolic murmur, rubs, systolic murmur GI/Abdominal exam: PRESENT: normal bowel sounds, soft. ABSENT: distended, guarding, mass, organolmegaly, rebound, tenderness Neurological exam: PRESENT: alert, awake, oriented to person, oriented to place, oriented to time, oriented to situation, CN II-XII grossly intact. ABSENT: motor sensory deficit Skin exam: PRESENT: other - Right breast diffuse erythema and tenderness, right under breast excoriation erythematous without discharge. Results Laboratory Results: 11/18/19 05:30 11/18/19 05:30 11/17/19 11/17/19 11/17/19 15:02 15:02 15:02 WBC 6.8 RBC 4.33 Hgb 13.5 Hct 40.0 MCV 92 MCH 31.2 MCHC 33.8 RDW 18.6 H Plt Count 163 Seg Neutrophils % 75.1 VBG pH VBG pCO2 VBG HCO3 VBG Base Excess Sodium 133.7 L Potassium 3.7 Chloride 94 L Carbon Dioxide 27 Anion Gap 13 BUN 7 Creatinine 0.47 L Est GFR ( Amer) > 60 Glucose 103 Lactic Acid Calcium 9.2 Magnesium Total Bilirubin 0.6 AST 44 H Alkaline Phosphatase 170 H C-Reactive Protein 201.9 H Total Protein 7.9 Albumin 3.2 L 11/17/19 11/17/19 11/17/19 15:05 15:05 18:00 WBC RBC Hgb Hct MCV MCH MCHC RDW Plt Count Seg Neutrophils % VBG pH 7.32 VBG pCO2 52.5 VBG HCO3 26.4 VBG Base Excess -0.6 Sodium Potassium Chloride Carbon Dioxide Anion Gap BUN Creatinine Est GFR ( Amer) Glucose Lactic Acid 1.8 3.7 H Calcium Magnesium Total Bilirubin AST Alkaline Phosphatase C-Reactive Protein Total Protein Albumin 11/17/19 11/18/19 11/18/19 21:04 05:30 05:30 WBC 5.0 RBC 4.59 Hgb 14.2 Hct 42.7 MCV 93 MCH 30.9 MCHC 33.2 RDW 18.7 H Plt Count 143 L Seg Neutrophils % VBG pH VBG pCO2 VBG HCO3 VBG Base Excess Sodium 134.4 L Potassium 3.9 Chloride 100 Carbon Dioxide 28 Anion Gap 6 BUN 5 L Creatinine 0.34 L Est GFR ( Amer) > 60 Glucose 69 L Lactic Acid 0.9 Calcium 8.5 Magnesium 1.3 L Total Bilirubin 0.5 AST 42 H Alkaline Phosphatase 122 C-Reactive Protein Total Protein 6.4 Albumin 2.5 L Impressions: Foot X-Ray 11/17/19 00:00 IMPRESSION: 1. Linear lucencies at the bases of the 2nd and 3rd proximal phalanges, may represent artifact versus nondisplaced fractures. Please correlate with point tenderness. 2. Ill-defined areas of lucency at the heads of the 4th and 5th right metatarsals, underlying osteomyelitis cannot be excluded. Contrast-enhanced MRI can help in further evaluation. 3. Diffuse soft tissue edema. Skin defect at the dorsum of the right foot, probably corresponding to known wound. Chest X-Ray 11/17/19 15:18 IMPRESSION: NO ACUTE RADIOGRAPHIC FINDING IN THE CHEST. Lower Extremity Ultrasound 11/18/19 00:00 IMPRESSION: 1. Triphasic inflow. 2. No focal stenosis. Assessment and Plan - Diagnosis (1) Right foot ulcer Qualifiers: Non-pressure ulcer stage: with fat layer exposed Qualified Code(s): L97.512 - Non-pressure chronic 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 layer exposed Is this a current diagnosis for this admission?: Yes Plan: Right foot dorsal aspect 5.5 cm necrotic ulcer with fat layer is exposed. Obtain x-ray to rule out osteomyelitis. Broad-spectrum empiric IV antibiotics, wound culture, arterial Doppler, wound care, surgical consultation. (2) Cellulitis of chest wall Is this a current diagnosis for this admission?: Yes Plan: This is most likely extensive candidiasis or chest wall cellulitis. Patient does not have diabetes however is morbidly obese. Wound care, empiric broad-spectrum IV antibiotic, oral and topical antifungals. (3) Obesity Qualifiers: Body mass index: BMI 34.0-34.9 Is this a current diagnosis for this admission?: Yes Plan: Diet and lifestyle modification recommended. (4) Tobacco abuse Is this a current diagnosis for this admission?: Yes Plan: Currently taking Chantix. Resume home meds. (5) Decubitus ulcer of right buttock, stage 2 Is this a current diagnosis for this admission?: Yes Plan: Stage II decubitus ulcer. Wound care. Frequent repositioning. Broad-spectrum IV antibiotics. Surgical consultation. (6) Alcohol dependency Qualifiers: Is this a current diagnosis for this admission?: Yes Plan: Daily alcohol drinker. Does not seem to be withdrawing. Folic acid, thiamine, multivitamins, D5NS, benzodiazepines, fall, seizure and aspiration precautions. (7) Asthma Qualifiers: Asthma severity: moderate Is this a current diagnosis for this admission?: Yes Plan: Does not appear to be exacerbated. Resume home meds. PRN duo nebs, supplemental oxygen, PRN BiPAP. (8) Opiate dependence Qualifiers: Substance use status: uncomplicated Qualified Code(s): F11.20 - Opioid dependence, uncomplicated Is this a current diagnosis for this admission?: Yes Plan: Currently taking buprenorphine. Resume home meds. Monitor for withdrawal. - Time Time Spent with patient: 25-34 minutes Medications reviewed and adjusted accordingly: Yes Anticipated Discharge Disposition: Senior Care Facility Anticipated Discharge Timeframe: within 72 hours
[2019-11-18] MEDS: IPRATROPIUM/ALBUTEROL 0.5-2.5 MG/3 ML AMPUL NEB SCH ×2 (14:18→21:36)
[2019-11-18] MEDS: VANCOMYCIN HCL 1,500 MG in DEXTROSE 5%-WATER 250 ML IV SCH (16:37)
[2019-11-18] MEDS: NYSTATIN CREAM 15 GM TP SCH ×2 (17:32→19:21)
[2019-11-19] MEDS: VANCOMYCIN HCL 1,500 MG in DEXTROSE 5%-WATER 250 ML IV SCH ×2 (01:11→13:58)
[2019-11-19] MEDS: DEXTROSE 5%-WATER 1000 ML 1,000 ML IV PRN (01:12)
[2019-11-19] MEDS: AZTREONAM 1 GM in DEXTROSE 5%-WATER 50 ML IV SCH ×3 (05:25→21:30)
[2019-11-19] MEDS: IPRATROPIUM/ALBUTEROL 0.5-2.5 MG/3 ML AMPUL NEB SCH ×3 (07:34→21:08)
[2019-11-19] MEDS: INSULIN LISPRO 100 UNIT/ML 3 ML VIAL SUBCUT SCH ×4 (09:03→21:46)
--- NOTE | 2019-11-19 09:16 | PDOC PROGRESS REPORT ---
Subjective Progress Note for:: 11/19/19 Subjective:: short of breath cough Reason For Visit: CELLULITIS, DECUBITUS ULCER Physical Exam Vital Signs: Temp Pulse Resp BP Pulse Ox 97.8 F 90 16 107/66 97 11/19/19 03:53 11/19/19 07:34 11/19/19 07:34 11/19/19 03:53 11/19/19 03:53 Intake & Output 11/18/19 11/19/19 11/20/19 06:59 06:59 06:59 Intake Total 2850 3228 Output Total 880 825 Balance 1970 2403 Weight 83 kg 107.8 kg General appearance: PRESENT: morbidly obese Head exam: PRESENT: normocephalic Eye exam: PRESENT: EOMI Ear exam: PRESENT: normal external ear exam Mouth exam: PRESENT: moist Teeth exam: PRESENT: poor dentation Neck exam: PRESENT: full ROM Respiratory exam: PRESENT: decreased breath sounds, rales, rhonchi Cardiovascular exam: PRESENT: RRR Pulses: PRESENT: +1 pedal pulses bilateral, +2 pedal pulses bilateral Vascular exam: PRESENT: pallor Breast: PRESENT: Normal GI/Abdominal exam: PRESENT: soft Rectal exam: PRESENT: deferred Extremities exam: PRESENT: other - rt lower extremity swollen from keen down, woody induration from knee down rt dorsal foot necrotic wound approx 12cm diam eter cool to touch no granulation tissue. no pus. Neurological exam: PRESENT: alert, oriented to person Psychiatric exam: PRESENT: appropriate affect Skin exam: PRESENT: dry Results Laboratory Results: 11/18/19 05:30 11/18/19 05:30 11/17/19 20:30 Foot - Sore Gram Stain - Final Impressions: Foot X-Ray 11/17/19 00:00 IMPRESSION: 1. Linear lucencies at the bases of the 2nd and 3rd proximal phalanges, may represent artifact versus nondisplaced fractures. Please correlate with point tenderness. 2. Ill-defined areas of lucency at the heads of the 4th and 5th right metatarsals, underlying osteomyelitis cannot be excluded. Contrast-enhanced MRI can help in further evaluation. 3. Diffuse soft tissue edema. Skin defect at the dorsum of the right foot, probably corresponding to known wound. Chest X-Ray 11/17/19 15:18 IMPRESSION: NO ACUTE RADIOGRAPHIC FINDING IN THE CHEST. Lower Extremity Ultrasound 11/18/19 00:00 IMPRESSION: 1. Triphasic inflow. 2. No focal stenosis. Assessment & Plan - Time Time Spent: 50 to 70 Minutes Critical Time spent with patient: 15-24 minutes Medications reviewed and adjusted accordingly: No Anticipated Discharge Disposition: Assisted Living with Home Health Services Anticipated Discharge Timeframe: unk - Plan Summary Plan Summary: rt lower ext markedly swollen with necrotic rt foot min pulses, no granulation surggested to pt she need rt bka pt curently refuses any further surgery will cont wet to dry dressing changes for now.
[2019-11-19 09:31] LABS: ABSOLUTE EOSINOPHILS # (AUTO) 0.1 10^3/uL (0.0-0.6); ABSOLUTE LYMPHOCYTES (AUTO) 0.8 10^3/uL (0.5-4.7); ABSOLUTE MONOCYTES (AUTO) 0.5 10^3/uL (0.1-1.4); ABSOLUTE NEUT (AUTO) 3.5 10^3/uL (1.7-8.2); BASOPHILS % (AUTO) 0.6 % (0-2); EOSINOPHILS % (AUTO) 2.3 % (0-6); HEMATOCRIT 38.1 % (36.0-47.0); HEMOGLOBIN 12.6 g/dL (12.0-15.5); LYMPHOCYTES % (AUTO) 16.4 % (13-45); MEAN CORPUSCULAR HEMOGLOBIN 30.8 pg (27.0-33.4); MEAN CORPUSCULAR HGB CONC 33.1 g/dL (32.0-36.0); MEAN CORPUSCULAR VOLUME 93 fl (80-97); MONOCYTES % (AUTO) 10.4 % (3-13); PLATELET COUNT 150 10^3/uL (150-450); RED CELL DISTRIBUTION WIDTH 18.8 % (11.5-14.0); SEGMENTED NEUTROPHILS % (AUTO) 70.3 % (42-78); TOTAL CELLS COUNTED % (AUTO) 100 %; WHITE BLOOD COUNT 4.9 10^3/uL (4.0-10.5)
[2019-11-19 09:39] LABS: INTERNATIONAL RATION (INR) 1.01; PROTHROMBIN TIME 13.5 SEC (11.4-15.4)
[2019-11-19 09:53] LABS: ALBUMIN 2.4 g/dL (3.5-5.0); ALKALINE PHOSPHATASE 130 U/L (38-126); ASPARTATE AMINO TRANSFERASE 29 U/L (14-36); BILIRUBIN,TOTAL 0.3 mg/dL (0.2-1.3); BLOOD UREA NITROGEN 3 mg/dL (7-20); CALCIUM 8.3 mg/dL (8.4-10.2); GLUCOSE 113 mg/dL (75-110); POTASSIUM 3.4 mmol/L (3.6-5.0); TOTAL PROTEIN 6.2 g/dL (6.3-8.2)
[2019-11-19 09:58] LABS: CARBON DIOXIDE 35 mmol/L (22-30); CHLORIDE 96 mmol/L (98-107)
[2019-11-19 10:01] LABS: ANION GAP 2 (5-19)
--- NOTE | 2019-11-19 11:00 | PDOC PROGRESS REPORT ---
Subjective Progress Note for:: 11/19/19 Subjective:: DYLAN SWARTZ is a 58 year old female past medical history of lung cancer, COPD, opiate dependency, morbid obesity, chronic bilateral lower extremity stasis dermatitis, EtOH abuse, tobacco abuse, who was recently admitted at [facility] for right lower extremity cellulitis, and was DC'd home on home PT, OT and home health front wheel walker, bedside commode and p.o. antibiotics. Today patient is presenting to ED complaining of extensive right buttocks decubitus ulcer, right upper chest below the breast wound, and right foot foul-smelling purulent open wound. Unfortunate patient has a poor follow-up, living with her and as per has been drinking daily heavily. Patient is stating that she finished with her antibiotics but has not followed up with her PCP. Today she is stating that she is feeling sore everywhere however denies any fever, shortness of breath, chest pain, chills, diarrhea or constipation. She has low appetite however is p.o. tolerant. In ED she was noted to have extensive right buttock decubitus ulcer, right anterior chest extensive candidiasis, and right foot posterior aspect necrotic foul-smelling wound. Hospitalist was consulted for admission. 11/18/2019. Saw patient this morning complaining of shortness of breath and righ t leg pain she status post I&D at bedside, surgery is on board and she is scheduled to go to the OR for evaluation of her right buttocks decubitus ulcers, denies any fever, chills, nausea, vomiting. 11/19/2019. No acute events overnight. Saw patient this morning and no apparent distress, resting in bed, reporting mild improvement of right anterior chest wound, has been refusing the right BKA, is willing to be transition to rehab after the pathology, denies any fever, chills, nausea, vomiting. Reason For Visit: CELLULITIS, DECUBITUS ULCER Physical Exam Vital Signs: Temp Pulse Resp BP Pulse Ox 97.8 F 90 16 107/66 97 11/19/19 03:53 11/19/19 07:34 11/19/19 07:34 11/19/19 03:53 11/19/19 03:53 Intake & Output 11/18/19 11/19/19 11/20/19 06:59 06:59 06:59 Intake Total 2850 3228 Output Total 880 825 Balance 1970 2403 Weight 83 kg 107.8 kg General appearance: PRESENT: morbidly obese Head exam: PRESENT: atraumatic, normocephalic Respiratory exam: PRESENT: crackles, prolonged expiratory phas, tachypnea, wheezes. ABSENT: rales, rhonchi Cardiovascular exam: PRESENT: RRR. ABSENT: diastolic murmur, rubs, systolic murmur Pulses: PRESENT: other - Pedal pulses nonpalpable. GI/Abdominal exam: PRESENT: normal bowel sounds, soft. ABSENT: distended, guarding, mass, organolmegaly, rebound, tenderness Extremities exam: PRESENT: +1 edema Neurological exam: PRESENT: alert, awake, oriented to person, oriented to place, oriented to time, oriented to situation, CN II-XII grossly intact. ABSENT: motor sensory deficit Skin exam: PRESENT: other - Right breast tenderness improving, erythema improving, dressing in place, no active discharge. Results Laboratory Results: 11/19/19 09:10 11/19/19 09:10 11/19/19 11/19/19 09:10 09:10 WBC 4.9 RBC 4.10 Hgb 12.6 Hct 38.1 MCV 93 MCH 30.8 MCHC 33.1 RDW 18.8 H Plt Count 150 Seg Neutrophils % 70.3 Sodium 132.8 L Potassium 3.4 L Chloride 96 L Carbon Dioxide 35 H Anion Gap 2 L BUN 3 L Creatinine 0.44 L Est GFR ( Amer) > 60 Glucose 113 H Calcium 8.3 L Magnesium 1.4 L Total Bilirubin 0.3 AST 29 Alkaline Phosphatase 130 H Total Protein 6.2 L Albumin 2.4 L 11/17/19 20:30 Foot - Sore Gram Stain - Final Impressions: Foot X-Ray 11/17/19 00:00 IMPRESSION: 1. Linear lucencies at the bases of the 2nd and 3rd proximal phalanges, may represent artifact versus nondisplaced fractures. Please correlate with point tenderness. 2. Ill-defined areas of lucency at the heads of the 4th and 5th right metatarsals, underlying osteomyelitis cannot be excluded. Contrast-enhanced MRI can help in further evaluation. 3. Diffuse soft tissue edema. Skin defect at the dorsum of the right foot, probably corresponding to known wound. Chest X-Ray 08/09/20 15:18 IMPRESSION: NO ACUTE RADIOGRAPHIC FINDING IN THE CHEST. Lower Extremity Ultrasound 11/18/19 00:00 IMPRESSION: 1. Triphasic inflow. 2. No focal stenosis. Assessment and Plan - Diagnosis (1) Right foot ulcer Qualifiers: Non-pressure ulcer stage: with fat layer exposed Qualified Code(s): L97.512 - Non-pressure chronic 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 layer exposed Is this a current diagnosis for this admission?: Yes Plan: Status post bedside I&D. Will give suggested BKA however patient is refusing. Meanwhile will get MRI to rule out osteomyelitis. Right foot x-ray suspicious for osteomyelitis. Right lower extremity arterial Doppler negative for any focal stenosis. Presented with right foot dorsal aspect 5.5 cm necrotic ulcer with fat layer is exposed. Wound culture growing gram-negative rods pending sensitivity. Day 3 IV antibiotics. Day 3 IV vancomycin. Day 3 IV aztreonam. Continue broad-spectrum empiric IV antibiotics, wound care. Surgery consulted. Recommendations noted. (2) Cellulitis of chest wall Is this a current diagnosis for this admission?: Yes Plan: Right breast cancer swollen tender, under breast candidiasis/or chest wall cellulitis improving. Patient does not have diabetes however is morbidly obese. Continue wound care, empiric broad-spectrum IV antibiotic, oral and topical antifungals. (3) Obesity Qualifiers: Body mass index: BMI 34.0-34.9 Is this a current diagnosis for this admission?: Yes Plan: Diet and lifestyle modification recommended. (4) Tobacco abuse Is this a current diagnosis for this admission?: Yes Plan: Currently taking Chantix. Resume home meds. (5) Decubitus ulcer of right buttock, stage 2 Is this a current diagnosis for this admission?: Yes Plan: Improving. Presented with stage II decubitus ulcer. Continue wound care. Frequent repositioning. (6) Alcohol dependency Qualifiers: Is this a current diagnosis for this admission?: Yes Plan: Daily alcohol drinker. Does not seem to be withdrawing. Folic acid, thiamine, multivitamins, D5NS, benzodiazepines, fall, seizure and aspiration precautions. (7) Asthma Qualifiers: Asthma severity: moderate Is this a current diagnosis for this admission?: Yes Plan: Wheezing on physical examination. Continue LABA, LABA, ICS, PRN duo nebs supplemental oxygen. (8) Opiate dependence Qualifiers: Substance use status: uncomplicated Qualified Code(s): F11.20 - Opioid dependence, uncomplicated Is this a current diagnosis for this admission?: Yes Plan: Currently taking buprenorphine. Resume home meds. Monitor for withdrawal. (9) Hypoglycemia Is this a current diagnosis for this admission?: Yes Plan: Likely due to low p.o. intake. We will obtain new hemoglobin A1c. Continue D5 NS, hypoglycemia protocol, encourage frequent snacking. - Time Time Spent with patient: 25-34 minutes Smoking Cessation Education: 3 to 10 minutes Medications reviewed and adjusted accordingly: Yes Anticipated Discharge Disposition: [facility] Facility Anticipated Discharge Timeframe: within 72 hours
[2019-11-19] MEDS: BUPRENORPHINE HCL 2 MG SUBLINGUAL TABLET SL SCH (11:12)
[2019-11-19] MEDS: OXYCODONE-ACETAMINOPHEN 5-325 MG TABLET PO PRN ×3 (11:14→23:36)
[2019-11-19] MEDS: MAGNESIUM OXIDE 400 MG TABLET PO SCH ×2 (11:15→17:24)
[2019-11-19] MEDS: ZINC SULFATE 220 MG CAPSULE PO SCH (11:15)
[2019-11-19] MEDS: THIAMINE HCL 100 MG TABLET PO SCH (11:15)
[2019-11-19] MEDS: DOCUSATE SODIUM 100 MG CAPSULE PO SCH ×2 (11:16→17:25)
[2019-11-19] MEDS: VARENICLINE TARTRATE 1 MG TABLET PO SCH (11:16)
[2019-11-19] MEDS: FOLIC ACID 1 MG TABLET PO SCH (11:16)
[2019-11-19] MEDS: FLUCONAZOLE 100 MG TABLET PO SCH (11:16)
[2019-11-19] MEDS: NYSTATIN CREAM 15 GM TP SCH ×2 (11:17→17:53)
[2019-11-19] MEDS: FAMOTIDINE 20 MG TABLET PO SCH ×2 (11:19→21:31)
[2019-11-19] MEDS: ENOXAPARIN SODIUM INJ 40 MG/0.4 ML DISP.SYRIN SUBCUT SCH (11:19)
[2019-11-19] MEDS: FLUTICASONE/UMECLIDIN/VILANTER 100-62.5-25 MCG/DOSE IH SCH (11:19)
[2019-11-19] MEDS ORDERED: POTASSIUM CHLORIDE 10 MEQ TABLET.ER PO ONE (11:30)
[2019-11-19] MEDS: GABAPENTIN 100 MG CAPSULE PO SCH ×2 (13:58→17:25)
[2019-11-19] MEDS: GUAIFENESIN/CODEINE PHOS 100-10 MG/ 5 ML UDC PO PRN (21:30)
--- NOTE | 2019-11-19 21:52 | RADIOLOGY REPORT (SQ) ---
EXAM DESCRIPTION: MR LOWER EXTREMITY WITHOUT IV CONTRAST COMPLETED DATE/TME: 11/19/2019 10:50 CLINICAL HISTORY: 58 years, Female, rt foot non healing ulcer, r/o osteo COMPARISON: Plain radiographs of the right foot performed on 11/17/2019 TECHNIQUE: Multiplanar, multisequence MR images of the right foot were obtained without the use of intravenous contrast. Images stored on PACS. LIMITATIONS: None. FINDINGS: Assessment of the distal tibia reveals a serpiginous focus of diminished T2 signal with surrounding edema signal. Within this lesion, T2 signal appears somewhat hypointense with hyperintense T1 signal, indicating the presence of fat. 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 Diffuse soft tissue edema signal is noted about the dorsum of the visualized portions of the lower leg extending into the hindfoot, midfoot, and visualized portions of the forefoot. A large area of soft tissue ulceration is noted about the dorsum of the forefoot, spanning essentially the entirety of the lateral aspect of the forefoot. However, there is no evidence of diminished T1 signal about any of the osseous structures of the forefoot. No obvious well-demarcated fluid collections are clearly identified. The anterior, medial, and lateral ankle tendons appear intact. The Achilles tendon appears intact. Lateral ankle ligaments appear intact as well. Mild edema signal is noted about the musculature of the posterior aspect of the ankle, likely indicating an underlying infectious/inflammatory myositis. There is also an isolated focus of hyperintense T2 signal located about the posterior aspect of the calcaneus which is nonspecific. Additionally, there is mild bone marrow edema signal within the second through fifth metatarsal heads. IMPRESSION: Diffuse soft tissue edema about the anterior aspect of the lower leg extending to the dorsum of the hindfoot, midfoot, and forefoot. An associated large soft tissue ulcer about the dorsum of the forefoot extending laterally. While there is mild bone marrow edema signal about the second through fifth metatarsal heads, this is nonspecific/potentially reactive as no concomitant diminished T1 signal is evident at these locations to confirm the presence of osteomyelitis. Specifically, there is no confirmatory evidence of osteomyelitis on this exam. No drainable abscess identified. 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 copyright 2010 [employer] All Rights Reserved
[2019-11-20] MEDS: VANCOMYCIN HCL 1,500 MG in DEXTROSE 5%-WATER 250 ML IV SCH ×2 (01:52→14:12)
[2019-11-20] MEDS: AZTREONAM 1 GM in DEXTROSE 5%-WATER 50 ML IV SCH (05:24)
[2019-11-20 06:28] LABS: CALCIUM 8.3 mg/dL (8.4-10.2); CARBON DIOXIDE 34 mmol/L (22-30); CHLORIDE 98 mmol/L (98-107); GLUCOSE 104 mg/dL (75-110); POTASSIUM 3.7 mmol/L (3.6-5.0)
[2019-11-20 06:33] LABS: BLOOD UREA NITROGEN < 2 mg/dL (7-20)
[2019-11-20 06:35] LABS: ANION GAP 3 (5-19)
[2019-11-20] MEDS ORDERED: MAGNESIUM SULFATE/D5W 1 GM/100 ML RTUPB IV ONE (08:30)
[2019-11-20] MEDS: INSULIN LISPRO 100 UNIT/ML 3 ML VIAL SUBCUT SCH ×4 (08:40→22:02)
[2019-11-20] MEDS: IPRATROPIUM/ALBUTEROL 0.5-2.5 MG/3 ML AMPUL NEB SCH ×3 (09:33→20:09)
[2019-11-20] MEDS: ZINC SULFATE 220 MG CAPSULE PO SCH (10:13)
[2019-11-20] MEDS: VARENICLINE TARTRATE 1 MG TABLET PO SCH (10:13)
[2019-11-20] MEDS: FOLIC ACID 1 MG TABLET PO SCH (10:14)
[2019-11-20] MEDS: MAGNESIUM OXIDE 400 MG TABLET PO SCH ×2 (10:14→17:30)
[2019-11-20] MEDS: DOCUSATE SODIUM 100 MG CAPSULE PO SCH ×2 (10:14→17:30)
[2019-11-20] MEDS: THIAMINE HCL 100 MG TABLET PO SCH (10:14)
[2019-11-20] MEDS: FAMOTIDINE 20 MG TABLET PO SCH ×2 (10:14→22:16)
[2019-11-20] MEDS: BUPRENORPHINE HCL 2 MG SUBLINGUAL TABLET SL SCH (10:14)
[2019-11-20] MEDS: GABAPENTIN 100 MG CAPSULE PO SCH ×3 (10:14→17:23)
[2019-11-20] MEDS: FLUCONAZOLE 100 MG TABLET PO SCH (10:14)
[2019-11-20] MEDS: ENOXAPARIN SODIUM INJ 40 MG/0.4 ML DISP.SYRIN SUBCUT SCH (10:14)
[2019-11-20] MEDS: NYSTATIN CREAM 15 GM TP SCH ×2 (10:15→17:30)
[2019-11-20] MEDS: FLUTICASONE/UMECLIDIN/VILANTER 100-62.5-25 MCG/DOSE IH SCH (10:15)
--- NOTE | 2019-11-20 10:32 | PDOC PROGRESS REPORT ---
Subjective Progress Note for:: 11/20/19 Subjective:: DYLAN SWARTZ is a 58 year old female past medical history of lung cancer, COPD, opiate dependency, morbid obesity, chronic bilateral lower extremity stasis dermatitis, EtOH abuse, tobacco abuse, who was recently admitted at [facility] for right lower extremity cellulitis, and was DC'd home on home PT, OT and home health front wheel walker, bedside commode and p.o. antibiotics. Today patient is presenting to ED complaining of extensive right buttocks decubitus ulcer, right upper chest below the breast wound, and right foot foul-smelling purulent open wound. Unfortunate patient has a poor follow-up, living with her and as per has been drinking daily heavily. Patient is stating that she finished with her antibiotics but has not followed up with her PCP. Today she is stating that she is feeling sore everywhere however denies any fever, shortness of breath, chest pain, chills, diarrhea or constipation. She has low appetite however is p.o. tolerant. In ED she was noted to have extensive right buttock decubitus ulcer, right anterior chest extensive candidiasis, and right foot posterior aspect necrotic foul-smelling wound. Hospitalist was consulted for admission. 11/18/2019. Saw patient this morning complaining of shortness of breath and righ t leg pain she status post I&D at bedside, surgery is on board and she is scheduled to go to the OR for evaluation of her right buttocks decubitus ulcers, denies any fever, chills, nausea, vomiting. 11/19/2019. No acute events overnight. Saw patient this morning and no apparent distress, resting in bed, reporting mild improvement of right anterior chest wound, has been refusing the right BKA, is willing to be transition to rehab after the pathology, denies any fever, chills, nausea, vomiting. 11/20/2019. No acute events overnight. Patient continues to be in no apparent distress, right breast pain and erythema is improving, right decubitus ulcer also improving, patient has had MRI of right foot which is negative for osteomyelitis, patient is being followed by surgery, wound culture is growing multi-organisms, patient denies any fever, chills, nausea, vomiting, diarrhea, constipation or any urinary symptoms. Reason For Visit: CELLULITIS, DECUBITUS ULCER Physical Exam Vital Signs: Temp Pulse Resp BP Pulse Ox 98.0 F 97 24 H 124/82 97 11/20/19 04:00 11/20/19 07:00 11/20/19 04:00 11/20/19 04:00 11/20/19 04:00 Intake & Output 11/19/19 11/20/19 11/21/19 06:59 06:59 06:59 Intake Total 3228 1266 Output Total 825 1500 Balance 2403 -234 Weight 107.8 kg 107.9 kg General appearance: PRESENT: no acute distress, well-developed, well-nourished Head exam: PRESENT: atraumatic, normocephalic Respiratory exam: PRESENT: clear to auscultation javier. ABSENT: rales, rhonchi, wheezes Cardiovascular exam: PRESENT: RRR. ABSENT: diastolic murmur, rubs, systolic murmur GI/Abdominal exam: PRESENT: normal bowel sounds, soft. ABSENT: distended, guarding, mass, organolmegaly, rebound, tenderness Neurological exam: PRESENT: alert, awake, oriented to person, oriented to place, oriented to time, oriented to situation, CN II-XII grossly intact. ABSENT: motor sensory deficit Skin exam: PRESENT: other - Right buttocks decubitus ulcer stage I, no sign of infection. Right shoulder diffuse erythema and tenderness, improving, no active discharge. Right foot chronic wound status post I&D, dressing in place, no discharge. Neurovascularly intact. Results Laboratory Results: 11/19/19 09:10 11/20/19 05:10 11/20/19 05:10 Sodium 135.0 L Potassium 3.7 Chloride 98 Carbon Dioxide 34 H Anion Gap 3 L BUN < 2 L Creatinine 0.36 L Est GFR ( Amer) > 60 Glucose 104 Calcium 8.3 L Magnesium 1.4 L 11/17/19 21:00 Breast - Right Gram Stain - Final 11/17/19 21:00 Breast - Right Wound Culture - Final Skin Ara Parvimonas(Peptostrep) Species 11/17/19 20:30 Foot - Sore Gram Stain - Final 11/17/19 20:30 Foot - Sore Wound Culture - Final Klebsiella Oxytoca Acinetobacter Baumannii/Haem Enterococcus Faecalis(Group D) Skin Ara Impressions: Foot X-Ray 11/17/19 00:00 IMPRESSION: 1. Linear lucencies at the bases of the 2nd and 3rd proximal phalanges, may represent artifact versus nondisplaced fractures. Please correlate with point tenderness. 2. Ill-defined areas of lucency at the heads of the 4th and 5th right metatarsals, underlying osteomyelitis cannot be excluded. Contrast-enhanced MRI can help in further evaluation. 3. Diffuse soft tissue edema. Skin defect at the dorsum of the right foot, probably corresponding to known wound. Chest X-Ray 11/17/19 15:18 IMPRESSION: NO ACUTE RADIOGRAPHIC FINDING IN THE CHEST. Lower Extremity Ultrasound 11/18/19 00:00 IMPRESSION: 1. Triphasic inflow. 2. No focal stenosis. Lower Extremity MRI 11/19/19 10:50 IMPRESSION: Diffuse soft tissue edema about the anterior aspect of the lower leg extending to the dorsum of the hindfoot, midfoot, and forefoot. An associated large soft tissue ulcer about the dorsum of the forefoot extending laterally. While there is mild bone marrow edema signal about the second through fifth metatarsal heads, this is nonspecific/potentially reactive as no concomitant diminished T1 signal is evident at these locations to confirm the presence of osteomyelitis. Specifically, there is no confirmatory evidence of osteomyelitis on this exam. No drainable abscess identified. 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 copyright 2011 [employer]- All Rights Reserved Assessment and Plan - Diagnosis (1) Right foot ulcer Qualifiers: Non-pressure ulcer stage: with fat layer exposed Qualified Code(s): L97.512 - Non-pressure chronic 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 layer exposed Is this a current diagnosis for this admission?: Yes Plan: Status post bedside I&D. Surgery suggested BKA however patient is refusing. MRI right foot negative for osteomyelitis. Right foot x-ray suspicious for osteomyelitis. Right lower extremity arterial Doppler negative for any focal stenosis. Presented with right foot dorsal aspect 5.5 cm necrotic ulcer with fat layer is exposed. Polymicrobial growth in the wound culture. Sensitive to vancomycin and levofloxacin. Day 4 IV antibiotics. Day 4 IV vancomycin. Day 1 IV levofloxacin. Received 3 days of IV aztreonam. Continue broad-spectrum empiric IV antibiotics, wound care. Surgery consulted. Recommendations noted. (2) Cellulitis of chest wall Is this a current diagnosis for this admission?: Yes Plan: Moderate improvement. Erythema and tenderness improving. Right breast cancer swollen tender, under breast candidiasis/or chest wall cellulitis improving. Patient does not have diabetes however is morbidly obese. Continue wound care, empiric broad-spectrum IV antibiotic, oral and topical antifungals. (3) Obesity Qualifiers: Body mass index: BMI 34.0-34.9 Is this a current diagnosis for this admission?: Yes Plan: BMI 44.9. TSH, T3 and T4 WNL. Hemoglobin A1c WNL. Diet and lifestyle modification recommended. (4) Tobacco abuse Is this a current diagnosis for this admission?: Yes Plan: Currently taking Chantix. Resume home meds. (5) Decubitus ulcer of right buttock, stage 2 Is this a current diagnosis for this admission?: Yes Plan: Right buttocks stage II decubitus ulcer. No sign of infection. Presented with stage II decubitus ulcer. Continue wound care. Frequent repositioning. (6) Alcohol dependency Qualifiers: Is this a current diagnosis for this admission?: Yes Plan: Daily alcohol drinker. Does not seem to be withdrawing. Folic acid, thiamine, multivitamins, D5NS, benzodiazepines, fall, seizure and aspiration precautions. (7) Asthma Qualifiers: Asthma severity: moderate Is this a current diagnosis for this admission?: Yes Plan: Wheezing on physical examination. Continue LABA, LABA, ICS, PRN duo nebs supplemental oxygen. (8) Opiate dependence Qualifiers: Substance use status: uncomplicated Qualified Code(s): F11.20 - Opioid dependence, uncomplicated Is this a current diagnosis for this admission?: Yes Plan: Currently taking buprenorphine. Resume home meds. Monitor for withdrawal. (9) Hypoglycemia Is this a current diagnosis for this admission?: Yes Plan: Improving. Patient endorsing low appetite. Does not like the food in the hospital. Likely due to low p.o. intake. We will obtain new hemoglobin A1c. Continue D5 NS, hypoglycemia protocol, encourage frequent snacking. - Time Time Spent with patient: 25-34 minutes Smoking Cessation Education: 3 to 10 minutes Anticipated Discharge Disposition: Home with Home Health Anticipated Discharge Timeframe: within 72 hours
[2019-11-20] MEDS: DEXTROSE 5%-WATER 1000 ML 1,000 ML IV PRN (11:36)
[2019-11-20] MEDS: LEVOFLOXACIN 500 MG/D5W RTU 500 MG/100 ML RTUPB IV SCH (11:36)
[2019-11-20 14:45] LABS: VANCOMYCIN,TROUGH 9.7 ug/mL (5.0-20.0)
--- NOTE | 2019-11-20 18:11 | PDOC PROGRESS REPORT ---
Subjective Progress Note for:: 11/20/19 Reason For Visit: CELLULITIS, DECUBITUS ULCER Physical Exam Vital Signs: Temp Pulse Resp BP Pulse Ox 98.5 F 113 H 18 122/66 95 11/20/19 11:02 11/20/19 14:23 11/20/19 14:23 11/20/19 11:02 11/20/19 14:23 Intake & Output 11/19/19 11/20/19 11/21/19 06:59 06:59 06:59 Intake Total 3228 1266 1690 Output Total 825 1500 600 Balance 2403 -234 1090 Weight 107.8 kg 107.9 kg Results Laboratory Results: 11/19/19 09:10 11/20/19 05:10 11/20/19 05:10 Sodium 135.0 L Potassium 3.7 Chloride 98 Carbon Dioxide 34 H Anion Gap 3 L BUN < 2 L Creatinine 0.36 L Est GFR ( Amer) > 60 Glucose 104 Calcium 8.3 L Magnesium 1.4 L 11/17/19 21:00 Breast - Right Gram Stain - Final 11/17/19 21:00 Breast - Right Wound Culture - Final Skin Ara Parvimonas(Peptostrep) Species 11/17/19 20:30 Foot - Sore Gram Stain - Final 11/17/19 20:30 Foot - Sore Wound Culture - Final Klebsiella Oxytoca Acinetobacter Baumannii/Haem Enterococcus Faecalis(Group D) Skin Ara Impressions: Foot X-Ray 11/17/19 00:00 IMPRESSION: 1. Linear lucencies at the bases of the 2nd and 3rd proximal phalanges, may represent artifact versus nondisplaced fractures. Please correlate with point tenderness. 2. Ill-defined areas of lucency at the heads of the 4th and 5th right metatarsals, underlying osteomyelitis cannot be excluded. Contrast-enhanced MRI can help in further evaluation. 3. Diffuse soft tissue edema. Skin defect at the dorsum of the right foot, probably corresponding to known wound. Chest X-Ray 11/17/19 15:18 IMPRESSION: NO ACUTE RADIOGRAPHIC FINDING IN THE CHEST. Lower Extremity Ultrasound 11/18/19 00:00 IMPRESSION: 1. Triphasic inflow. 2. No focal stenosis. Lower Extremity MRI 11/19/19 10:50 IMPRESSION: Diffuse soft tissue edema about the anterior aspect of the lower leg extending to the dorsum of the hindfoot, midfoot, and forefoot. An associated large soft tissue ulcer about the dorsum of the forefoot extending laterally. While there is mild bone marrow edema signal about the second through fifth metatarsal heads, this is nonspecific/potentially reactive as no concomitant diminished T1 signal is evident at these locations to confirm the presence of osteomyelitis. Specifically, there is no confirmatory evidence of osteomyelitis on this exam. No drainable abscess identified. 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 copyright 2011 [employer]- All Rights Reserved Assessment & Plan - Diagnosis (1) Cellulitis of right lower extremity Is this a current diagnosis for this admission?: Yes (2) Chronic venous insufficiency of lower extremity Is this a current diagnosis for this admission?: Yes - Time Anticipated Discharge Disposition: unknown Anticipated Discharge Timeframe: unknown - Plan Summary Plan Summary: This is a 58-year-old female with a large ulcer to the right foot. There is a large soft tissue defect, with exposed tendon. She has gaiter sign (chronic venous changes) in the right lower extremity. I believe this is contributing to lower extremity issues. At this time, the patient does not have sepsis resulting from her foot wound. Long-term, I believe she will require a below- knee amputation. The wound has a very low chance of completely healing. Despite this, the patient has declined below-knee amputation. Recommend local wound care. Initiate damp to dry dressing changes twice daily. As an outpatient, she should see the [place] [facility]. At this time, if she continues to decline amputation, surgery has nothing more to offer. If the patient changes her mind, and desires below-knee amputation, please renotify surgery service. Surgery service will sign off at this time.
[2019-11-20] MEDS: ACETAMINOPHEN 325 MG TABLET PO PRN (22:16)
[2019-11-21] MEDS: VANCOMYCIN HCL 1,500 MG in DEXTROSE 5%-WATER 250 ML IV SCH ×2 (01:25→13:55)
[2019-11-21] MEDS: ACETAMINOPHEN 325 MG TABLET PO PRN ×2 (03:22→14:06)
[2019-11-21 06:48] LABS: ABSOLUTE EOSINOPHILS # (AUTO) 0.1 10^3/uL (0.0-0.6); ABSOLUTE MONOCYTES (AUTO) 0.6 10^3/uL (0.1-1.4); ABSOLUTE NEUT (AUTO) 3.4 10^3/uL (1.7-8.2); BASOPHILS % (AUTO) 0.7 % (0-2); HEMATOCRIT 36.3 % (36.0-47.0); HEMOGLOBIN 11.9 g/dL (12.0-15.5); LYMPHOCYTES % (AUTO) 19.3 % (13-45); MEAN CORPUSCULAR HEMOGLOBIN 30.4 pg (27.0-33.4); MEAN CORPUSCULAR HGB CONC 32.9 g/dL (32.0-36.0); MEAN CORPUSCULAR VOLUME 92 fl (80-97); MONOCYTES % (AUTO) 11.2 % (3-13); PLATELET COUNT 191 10^3/uL (150-450); RED BLOOD COUNT 3.93 10^6/uL (3.72-5.28); RED CELL DISTRIBUTION WIDTH 18.5 % (11.5-14.0); SEGMENTED NEUTROPHILS % (AUTO) 66.8 % (42-78); TOTAL CELLS COUNTED % (AUTO) 100 %; WHITE BLOOD COUNT 5.1 10^3/uL (4.0-10.5)
[2019-11-21 07:04] LABS: ALBUMIN 2.3 g/dL (3.5-5.0); ALKALINE PHOSPHATASE 125 U/L (38-126); ASPARTATE AMINO TRANSFERASE 28 U/L (14-36); BILIRUBIN,TOTAL 0.3 mg/dL (0.2-1.3); CALCIUM 8.4 mg/dL (8.4-10.2); CHOLESTEROL 126.13 mg/dL (0-200); GLUCOSE 100 mg/dL (75-110); POTASSIUM 3.5 mmol/L (3.6-5.0); TRIGLYCERIDES 109 mg/dL (<150)
[2019-11-21 07:09] LABS: CARBON DIOXIDE 37 mmol/L (22-30); CHLORIDE 96 mmol/L (98-107)
[2019-11-21 07:10] LABS: ANION GAP 2 (5-19); BLOOD UREA NITROGEN < 2 mg/dL (7-20)
[2019-11-21 07:15] LABS: DIRECT LDL 84 mg/dL (<100)
[2019-11-21] MEDS: IPRATROPIUM/ALBUTEROL 0.5-2.5 MG/3 ML AMPUL NEB SCH ×3 (07:48→19:46)
[2019-11-21] MEDS: INSULIN LISPRO 100 UNIT/ML 3 ML VIAL SUBCUT SCH ×4 (07:59→21:42)
[2019-11-21] MEDS: LEVOFLOXACIN 500 MG/D5W RTU 500 MG/100 ML RTUPB IV SCH (10:03)
[2019-11-21] MEDS: GABAPENTIN 100 MG CAPSULE PO SCH ×3 (10:04→17:34)
[2019-11-21] MEDS: MAGNESIUM OXIDE 400 MG TABLET PO SCH ×2 (10:04→17:33)
[2019-11-21] MEDS: ENOXAPARIN SODIUM INJ 40 MG/0.4 ML DISP.SYRIN SUBCUT SCH (10:04)
[2019-11-21] MEDS: FAMOTIDINE 20 MG TABLET PO SCH ×2 (10:04→21:57)
[2019-11-21] MEDS: FLUCONAZOLE 100 MG TABLET PO SCH (10:04)
[2019-11-21] MEDS: THIAMINE HCL 100 MG TABLET PO SCH (10:05)
[2019-11-21] MEDS: FOLIC ACID 1 MG TABLET PO SCH (10:05)
[2019-11-21] MEDS: DOCUSATE SODIUM 100 MG CAPSULE PO SCH ×2 (10:05→17:33)
[2019-11-21] MEDS: BUPRENORPHINE HCL 2 MG SUBLINGUAL TABLET SL SCH (10:05)
[2019-11-21] MEDS: ZINC SULFATE 220 MG CAPSULE PO SCH (10:05)
[2019-11-21] MEDS: FLUTICASONE/UMECLIDIN/VILANTER 100-62.5-25 MCG/DOSE IH SCH (10:25)
[2019-11-21] MEDS: NYSTATIN CREAM 15 GM TP SCH ×2 (11:36→17:34)
[2019-11-21] MEDS: VARENICLINE TARTRATE 1 MG TABLET PO SCH (11:37)
--- NOTE | 2019-11-21 13:44 | PDOC PROGRESS REPORT ---
Subjective Progress Note for:: 11/21/19 Subjective:: DYLAN SWARTZ is a 58 year old female past medical history of lung cancer, COPD, opiate dependency, morbid obesity, chronic bilateral lower extremity stasis dermatitis, EtOH abuse, tobacco abuse, who was recently admitted at [facility] for right lower extremity cellulitis, and was DC'd home on home PT, OT and home health front wheel walker, bedside commode and p.o. antibiotics. Today patient is presenting to ED complaining of extensive right buttocks decubitus ulcer, right upper chest below the breast wound, and right foot foul-smelling purulent open wound. Unfortunate patient has a poor follow-up, living with her and as per has been drinking daily heavily. Patient is stating that she finished with her antibiotics but has not followed up with her PCP. Today she is stating that she is feeling sore everywhere however denies any fever, shortness of breath, chest pain, chills, diarrhea or constipation. She has low appetite however is p.o. tolerant. In ED she was noted to have extensive right buttock decubitus ulcer, right anterior chest extensive candidiasis, and right foot posterior aspect necrotic foul-smelling wound. Hospitalist was consulted for admission. 11/18/2019. Saw patient this morning complaining of shortness of breath and righ t leg pain she status post I&D at bedside, surgery is on board and she is scheduled to go to the OR for evaluation of her right buttocks decubitus ulcers, denies any fever, chills, nausea, vomiting. 11/19/2019. No acute events overnight. Saw patient this morning and no apparent distress, resting in bed, reporting mild improvement of right anterior chest wound, has been refusing the right BKA, is willing to be transition to rehab after the pathology, denies any fever, chills, nausea, vomiting. 11/20/2019. No acute events overnight. Patient continues to be in no apparent distress, right breast pain and erythema is improving, right decubitus ulcer also improving, patient has had MRI of right foot which is negative for osteomyelitis, patient is being followed by surgery, wound culture is growing multi-organisms, patient denies any fever, chills, nausea, vomiting, diarrhea, constipation or any urinary symptoms. 11/21/2019. No acute events overnight. Patient has tested negative for COVID-19 and has been transferred to fifth floor, reporting improvement of right breast tenderness and erythema, right foot wound has not changed however patient has declined BKA and surgery has signed off at this point and recommending outpatient wound care. Patient denies any fever, chills, nausea, vomiting, diarrhea, constipation or any urinary symptoms. Possible discharge home tomorrow. Reason For Visit: CELLULITIS, DECUBITUS ULCER Physical Exam Vital Signs: Temp Pulse Resp BP Pulse Ox 97.4 F 108 H 18 119/76 92 11/21/19 07:36 11/21/19 07:48 11/21/19 07:48 11/21/19 07:36 11/21/19 07:48 Intake & Output 11/20/19 11/21/19 11/22/19 06:59 06:59 06:59 Intake Total 1266 2540 Output Total 1500 1100 Balance -234 1440 Weight 107.9 kg 107.7 kg General appearance: PRESENT: no acute distress, morbidly obese, well-developed, well-nourished Head exam: PRESENT: atraumatic, normocephalic Respiratory exam: PRESENT: clear to auscultation javier. ABSENT: rales, rhonchi, wheezes Cardiovascular exam: PRESENT: RRR. ABSENT: diastolic murmur, rubs, systolic murmur GI/Abdominal exam: PRESENT: normal bowel sounds, soft. ABSENT: distended, gua rding, mass, organolmegaly, rebound, tenderness Extremities exam: PRESENT: full ROM. ABSENT: calf tenderness, clubbing, pedal edema Neurological exam: PRESENT: alert, awake, oriented to person, oriented to place, oriented to time, oriented to situation, CN II-XII grossly intact. ABSENT: motor sensory deficit Skin exam: PRESENT: other - Left buttocks stage II decubitus ulcer, improving, no sign of infection. Right breast mastitis and under breast candidiasis, improving significantly since admission. Right foot posterior aspect 5 x 5 cm deep wound, with fat layer visible, mild granulation tissue, no discharge. Results Laboratory Results: 11/21/19 06:17 11/21/19 06:17 11/21/19 11/21/19 06:17 06:17 WBC 5.1 RBC 3.93 Hgb 11.9 L Hct 36.3 MCV 92 MCH 30.4 MCHC 32.9 RDW 18.5 H Plt Count 191 Seg Neutrophils % 66.8 Sodium 134.8 L Potassium 3.5 L Chloride 96 L Carbon Dioxide 37 H Anion Gap 2 L BUN < 2 L Creatinine 0.44 L Est GFR ( Amer) > 60 Glucose 100 Calcium 8.4 Magnesium 1.5 L Total Bilirubin 0.3 AST 28 Alkaline Phosphatase 125 Total Protein 6.0 L Albumin 2.3 L Triglycerides 109 Cholesterol 126.13 LDL Cholesterol Direct 84 VLDL Cholesterol 22.0 HDL Cholesterol 28 L 11/17/19 21:00 Breast - Right Gram Stain - Final 11/17/19 21:00 Breast - Right Wound Culture - Final Skin Ara Parvimonas(Peptostrep) Species Impressions: Foot X-Ray 11/17/19 00:00 IMPRESSION: 1. Linear lucencies at the bases of the 2nd and 3rd proximal phalanges, may represent artifact versus nondisplaced fractures. Please correlate with point tenderness. 2. Ill-defined areas of lucency at the heads of the 4th and 5th right metatarsals, underlying osteomyelitis cannot be excluded. Contrast-enhanced MRI can help in further evaluation. 3. Diffuse soft tissue edema. Skin defect at the dorsum of the right foot, probably corresponding to known wound. Chest X-Ray 11/17/19 15:18 IMPRESSION: NO ACUTE RADIOGRAPHIC FINDING IN THE CHEST. Lower Extremity Ultrasound 11/18/19 00:00 IMPRESSION: 1. Triphasic inflow. 2. No focal stenosis. Lower Extremity MRI 11/19/19 10:50 IMPRESSION: Diffuse soft tissue edema about the anterior aspect of the lower leg extending to the dorsum of the hindfoot, midfoot, and forefoot. An associated large soft tissue ulcer about the dorsum of the forefoot extending laterally. While there is mild bone marrow edema signal about the second through fifth metatarsal heads, this is nonspecific/potentially reactive as no concomitant diminished T1 signal is evident at these locations to confirm the presence of osteomyelitis. Specifically, there is no confirmatory evidence of osteomyelitis on this exam. No drainable abscess identified. 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 copyright 2010 [employer]- All Rights Reserved Assessment and Plan - Diagnosis (1) Right foot ulcer Qualifiers: Non-pressure ulcer stage: with fat layer exposed Qualified Code(s): L97.512 - Non-pressure chronic 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 layer exposed Is this a current diagnosis for this admission?: Yes Plan: Mild improving. Status post bedside I&D. Surgery suggested BKA however patient is refusing. MRI right foot negative for osteomyelitis. Right foot x-ray suspicious for osteomyelitis. Right lower extremity arterial Doppler negative for any focal stenosis. Presented with right foot dorsal aspect 5.5 cm necrotic ulcer with fat layer is exposed. Polymicrobial growth in the wound culture. Sensitive to vancomycin and levofloxacin. Day 5 IV antibiotics. Day 5 IV vancomycin. Day 2 IV levofloxacin. Received 3 days of IV aztreonam. Continue broad-spectrum empiric IV antibiotics, wound care. Surgery consulted. Recommendations noted. (2) Cellulitis of chest wall Is this a current diagnosis for this admission?: Yes Plan: Moderate improvement. Erythema and tenderness improving. Right breast cancer swollen tender, under breast candidiasis/or chest wall cellulitis improving. Patient does not have diabetes however is morbidly obese. Continue wound care, empiric broad-spectrum IV antibiotic, oral and topical antifungals. (3) Obesity Qualifiers: Body mass index: BMI 34.0-34.9 Is this a current diagnosis for this admission?: Yes Plan: BMI 44.9. TSH, T3 and T4 WNL. Hemoglobin A1c WNL. Diet and lifestyle modification recommended. (4) Tobacco abuse Is this a current diagnosis for this admission?: Yes Plan: Currently taking Chantix. Resume home meds. (5) Decubitus ulcer of right buttock, stage 2 Is this a current diagnosis for this admission?: Yes Plan: Right buttocks stage II decubitus ulcer. No sign of infection. Presented with stage II decubitus ulcer. Continue wound care. Frequent repositioning. (6) Alcohol dependency Qualifiers: Is this a current diagnosis for this admission?: Yes Plan: Daily alcohol drinker. Does not seem to be withdrawing. Folic acid, thiamine, multivitamins, D5NS, benzodiazepines, fall, seizure and aspiration precautions. (7) Asthma Qualifiers: Asthma severity: moderate Is this a current diagnosis for this admission?: Yes Plan: Wheezing on physical examination. Continue LABA, LABA, ICS, PRN duo nebs supplemental oxygen. (8) Opiate dependence Qualifiers: Substance use status: uncomplicated Qualified Code(s): F11.20 - Opioid dependence, uncomplicated Is this a current diagnosis for this admission?: Yes Plan: Currently taking buprenorphine. Resume home meds. Monitor for withdrawal. (9) Hypoglycemia Is this a current diagnosis for this admission?: Yes Plan: Improving. Patient endorsing low appetite. Does not like the food in the hospital. Likely due to low p.o. intake. We will obtain new hemoglobin A1c. Continue D5 NS, hypoglycemia protocol, encourage frequent snacking. - Time Time Spent with patient: 25-34 minutes Medications reviewed and adjusted accordingly: Yes Anticipated Discharge Disposition: Home with Home Health Anticipated Discharge Timeframe: within 24 hours
[2019-11-21] MEDS: DEXTROSE 5%-WATER 1000 ML 1,000 ML IV PRN (14:02)
[2019-11-21] MEDS ORDERED: MAGNESIUM SULFATE/D5W 1 GM/100 ML RTUPB IV ONE (14:30)
[2019-11-22] MEDS: VANCOMYCIN HCL 1,500 MG in DEXTROSE 5%-WATER 250 ML IV SCH ×2 (02:02→15:13)
[2019-11-22] MEDS: ACETAMINOPHEN 325 MG TABLET PO PRN ×2 (02:51→14:15)
[2019-11-22] MEDS: INSULIN LISPRO 100 UNIT/ML 3 ML VIAL SUBCUT SCH ×2 (07:48→12:44)
[2019-11-22] MEDS: IPRATROPIUM/ALBUTEROL 0.5-2.5 MG/3 ML AMPUL NEB SCH ×2 (07:50→13:57)
[2019-11-22 08:21] LABS: ALBUMIN 2.5 g/dL (3.5-5.0); ALKALINE PHOSPHATASE 133 U/L (38-126); ASPARTATE AMINO TRANSFERASE 35 U/L (14-36); BILIRUBIN,DIRECT 0.1 mg/dL (0.0-0.4); BILIRUBIN,TOTAL 0.4 mg/dL (0.2-1.3); BLOOD UREA NITROGEN 3 mg/dL (7-20); CALCIUM 8.7 mg/dL (8.4-10.2); CARBON DIOXIDE 36 mmol/L (22-30); CHLORIDE 94 mmol/L (98-107); GLUCOSE 102 mg/dL (75-110); POTASSIUM 3.6 mmol/L (3.6-5.0); TOTAL PROTEIN 6.5 g/dL (6.3-8.2)
[2019-11-22 08:31] LABS: ANION GAP 4 (5-19)
[2019-11-22] MEDS: ENOXAPARIN SODIUM INJ 40 MG/0.4 ML DISP.SYRIN SUBCUT SCH (10:07)
[2019-11-22] MEDS: VARENICLINE TARTRATE 1 MG TABLET PO SCH (10:07)
[2019-11-22] MEDS: ZINC SULFATE 220 MG CAPSULE PO SCH (10:08)
[2019-11-22] MEDS: FOLIC ACID 1 MG TABLET PO SCH (10:08)
[2019-11-22] MEDS: GABAPENTIN 100 MG CAPSULE PO SCH ×2 (10:08→14:12)
[2019-11-22] MEDS: LEVOFLOXACIN 500 MG/D5W RTU 500 MG/100 ML RTUPB IV SCH (10:08)
[2019-11-22] MEDS: MAGNESIUM OXIDE 400 MG TABLET PO SCH (10:08)
[2019-11-22] MEDS: THIAMINE HCL 100 MG TABLET PO SCH (10:08)
[2019-11-22] MEDS: DOCUSATE SODIUM 100 MG CAPSULE PO SCH (10:08)
[2019-11-22] MEDS: FAMOTIDINE 20 MG TABLET PO SCH (10:08)
[2019-11-22] MEDS: BUPRENORPHINE HCL 2 MG SUBLINGUAL TABLET SL SCH (10:08)
[2019-11-22] MEDS: FLUCONAZOLE 100 MG TABLET PO SCH (10:08)
[2019-11-22] MEDS: NYSTATIN CREAM 15 GM TP SCH (10:09)
[2019-11-22] MEDS: FLUTICASONE/UMECLIDIN/VILANTER 100-62.5-25 MCG/DOSE IH SCH (10:09)
[2019-11-22 14:41] VITALS: BP 113/73
--- NOTE | 2019-11-22 16:43 | Progress Note ---
Provider Note Provider Note: [facility] ID Telephone Advice Consultation Chart reviewed. Patient is a 58-year-old woman with COPD, lung cancer, obesity, stasis dermatitis, decubitus ulcer, right foot ulcer. She was recently in the hospital for cellulitis and was discharged home. She returned due to infected right foot ulcer. She was septic on admission. Patient was evaluated by surgery and had excisional debridement of the right foot that included skin, soft tissue and necrotic superficial fascia. This is a large wound and there is tendon exposure. There was clinical suspicion of osteomyelitis. MRI did not show evidence of osteomyelitis, but reactive marrow edema. ESR 54 and CRP 201. Surgery recommended BKA due to large defect and poor compliance, but patient refused. She has been on vancomycin and levofloxacin. Superficial wound culture grew Enterococcus faecalis, Klebsiella oxytoca, Acinetobacter baumannii, skin aguila. ID consulted for recommendations. Allergies: aspirin [Aspirin] Allergy (Verified 10/06/18 17:54) NSAIDS (Non-Steroidal Anti-Inflamma [Nsaids] Allergy (Verified 10/06/18 17:54) Penicillins Allergy (Verified 10/06/18 17:54) Medications: Albuterol Sulfate [Albuterol Sulfate Hfa] 1 puff IH Q6HP PRN 09/04/19 Fluticasone/Umeclidin/Vilanter [Trelegy 100-62.5-25 Mcg Ellipta 14 Dose/Dpi] 1 puff IH DAILY 09/04/19 Hydrocortisone [Hydrocortisone 2.5% Cream 28 gm (Clinic Use)] 1 applic TOP BID 09/04/19 Pantoprazole Sodium [Protonix [address] Tablet] 40 mg PO DAILY 09/04/19 Tussionex 5 ml PO Q8HP PRN 09/04/19 Gabapentin [Neurontin 100 mg Capsule] 100 mg PO TID 11/18/19 Vital Signs: Temp Pulse Resp BP Pulse Ox 97.9 F 98 16 113/73 94 11/22/19 14:38 11/22/19 14:38 11/22/19 14:38 11/22/19 14:38 11/22/19 14:38 Intake & Output 11/21/19 11/22/19 11/23/19 06:59 06:59 06:59 Intake Total 3540 1080 1460 Output Total 1100 4475 1000 Balance 2610 -4272 460 Weight 107.7 kg 107.8 kg Weight/Height Weight 107.8 kg Height 5 ft 1 in Laboratories: 11/21/19 06:17 11/22/19 07:30 MCV 92 fl (80-97) 11/21/19 06:17 MCH 30.4 pg (27.0-33.4) 11/21/19 06:17 MCHC 32.9 g/dL (32.0-36.0) 11/21/19 06:17 RDW 18.5 % (11.5-14.0) H 11/21/19 06:17 Seg Neutrophils % 66.8 % (42-78) 11/21/19 06:17 VBG pH 7.32 (7.30-7.42) 11/17/19 15:05 VBG pCO2 52.5 mmHg (35-63) 11/17/19 15:05 VBG HCO3 26.4 mmol/L (20-32) 11/17/19 15:05 VBG Base Excess -0.6 mmol/L 11/17/19 15:05 Chloride 94 mmol/L (98-107) L 11/22/19 07:30 Carbon Dioxide 36 mmol/L (22-30) H 11/22/19 07:30 Anion Gap 4 (5-19) L 11/22/19 07:30 Est GFR ( Amer) > 60 (>60) 11/22/19 07:30 Glucose 102 mg/dL (75-110) 11/22/19 07:30 Lactic Acid 0.9 mmol/L (0.7-2.1) 11/17/19 21:04 Calcium 8.7 mg/dL (8.4-10.2) 11/22/19 07:30 Magnesium 1.5 mg/dL (1.6-2.3) L 11/21/19 06:17 Total Bilirubin 0.4 mg/dL (0.2-1.3) 11/22/19 07:30 AST 35 U/L (14-36) 11/22/19 07:30 Alkaline Phosphatase 133 U/L (38-126) H 11/22/19 07:30 C-Reactive Protein 201.9 mg/L (<10.0) H 11/17/19 15:02 Total Protein 6.5 g/dL (6.3-8.2) 11/22/19 07:30 Albumin 2.5 g/dL (3.5-5.0) L 11/22/19 07:30 Triglycerides 109 mg/dL (<150) 11/21/19 06:17 Cholesterol 126.13 mg/dL (0-200) 11/21/19 06:17 LDL Cholesterol Direct 84 mg/dL (<100) 11/21/19 06:17 VLDL Cholesterol 22.0 mg/dL (10-31) 11/21/19 06:17 HDL Cholesterol 28 mg/dL (>40) L 11/21/19 06:17 11/17/19 15:05 Blood Blood Culture - Final NO GROWTH IN 5 DAYS 11/17/19 15:02 Blood Blood Culture - Final NO GROWTH IN 5 DAYS Microbiology: Wound Culture 11/16 Klebsiella oxytoca Acinetobacter baumannii Enterococcus faecalis Skin aguila Radiology: Foot X-Ray 11/17/19 00:00 IMPRESSION: 1. Linear lucencies at the bases of the 2nd and 3rd proximal phalanges, may represent artifact versus nondisplaced fractures. Please correlate with point tenderness. 2. Ill-defined areas of lucency at the heads of the 4th and 5th right metatarsals, underlying osteomyelitis cannot be excluded. Contrast-enhanced MRI can help in further evaluation. 3. Diffuse soft tissue edema. Skin defect at the dorsum of the right foot, probably corresponding to known wound. Chest X-Ray 11/17/19 15:18 IMPRESSION: NO ACUTE RADIOGRAPHIC FINDING IN THE CHEST. Lower Extremity Ultrasound 11/18/19 00:00 IMPRESSION: 1. Triphasic inflow. 2. No focal stenosis. Lower Extremity MRI 11/19/19 10:50 IMPRESSION: Diffuse soft tissue edema about the anterior aspect of the lower leg extending to the dorsum of the hindfoot, midfoot, and forefoot. An associated large soft tissue ulcer about the dorsum of the forefoot extending laterally. While there is mild bone marrow edema signal about the second through fifth metatarsal heads, this is nonspecific/potentially reactive as no concomitant diminished T1 signal is evident at these locations to confirm the presence of osteomyelitis. Specifically, there is no confirmatory evidence of osteomyelitis on this exam. No drainable abscess identified. 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 Assessment and Recommendations: Patient evaluated for infected foot ulcer. Superficial cultures are polymicrobial. She had excisional debridement with a large defect, there is tendon exposure. Even though there isn't enough evidence of osteomyelitis by MRI, her inflammation markers are elevated ESR 54 and CRP 201. This ulcer seems to be very deep. I agree with surgery that patient will probably need BKA and antibiotic therapy will probably be futile without a difference in outcome if treated for 2 weeks (only skin and deep tissue as MRI was negative) vs 6 weeks (suspected OM). Will recommend linezolid 600 mg po bid + levaquin 500 mg po daily for 2 weeks if treating for deep tissue infection. If surgeon is highly suspicious of osteomyelitis, then she should continue vancomycin IV + levofloxacin for 6 weeks for OM. If that's the case, she should have labs wecherie camila including CBC, CMP, ESR and CRP, vanc trough (10-15). Please call if any questions. Grazyna Lawson MD [facility] ID [phone]
[2019-11-23] MEDS ORDERED: LEVOFLOXACIN 500 MG TABLET PO SCH (10:00)
--- NOTE | 2019-11-23 16:24 | PDOC DISCHARGE SUMMARY ---
Impression - Admit/DC Date/PCP Admission Date/Primary Care Provider: 11/17/19 18:04 RAUL LANZA MD Discharge Date: 11/22/19 - Discharge Diagnosis (1) Right foot ulcer Is this a current diagnosis for this admission?: Yes (2) Cellulitis of chest wall Is this a current diagnosis for this admission?: Yes (3) Obesity Is this a current diagnosis for this admission?: Yes (4) Tobacco abuse Is this a current diagnosis for this admission?: Yes (5) Decubitus ulcer of right buttock, stage 2 Is this a current diagnosis for this admission?: Yes (6) Alcohol dependency Is this a current diagnosis for this admission?: Yes (7) Asthma Is this a current diagnosis for this admission?: Yes (8) Opiate dependence Is this a current diagnosis for this admission?: Yes (9) Hypoglycemia Is this a current diagnosis for this admission?: Yes - Additional Information Discharge Diet: Diabetic Discharge Activity: Activity As Tolerated Referrals: WOUND CARE [Outside] - 11/26/19 8:00 am RAUL LANZA MD [Primary Care Provider] - 11/29/19 10:00 am (Patient is not being seen by this office. Last appointment was with Dr. Pryor at the [facility] [phone]. ) Prescriptions: Levofloxacin [Levaquin 500 mg Tablet] 500 mg PO DAILY 7 Days #7 tablet Linezolid 600 mg PO BID 12 Days #24 tablet Nystatin [Mycostatin Cream 15 gm] 1 applic TP BID 7 Days #1 tube Home Medications: Albuterol Sulfate [Albuterol Sulfate Hfa] 1 puff IH Q6HP PRN 09/04/19 Fluticasone/Umeclidin/Vilanter [Trelegy 100-62.5-25 Mcg Ellipta 14 Dose/Dpi] 1 puff IH DAILY 09/04/19 Hydrocortisone [Hydrocortisone 2.5% Cream 28 gm (Clinic Use)] 1 applic TOP BID 09/04/19 Pantoprazole Sodium [Protonix [address] Tablet] 40 mg PO DAILY 09/04/19 Tussionex 5 ml PO Q8HP PRN 09/04/19 Gabapentin [Neurontin 100 mg Capsule] 100 mg PO TID 11/18/19 Levofloxacin [Levaquin 500 mg Tablet] 500 mg PO DAILY 7 Days #7 tablet 11/22/19 Linezolid 600 mg PO BID 12 Days #24 tablet 11/22/19 Nystatin [Mycostatin Cream 15 gm] 1 applic TP BID 7 Days #1 tube 11/22/19 History of Present Illiness History of Present Illness: DYLAN SWARTZ is a 58 year old female past medical history of lung cancer, COPD, opiate dependency, morbid obesity, chronic bilateral lower extremity stasis dermatitis, EtOH abuse, tobacco abuse, who was recently admitted at [facility] for right lower extremity cellulitis, and was DC'd home on home PT, OT and home health front wheel walker, bedside commode and p.o. antibiotics. Today patient is presenting to ED complaining of extensive right buttocks decubitus ulcer, right upper chest below the breast wound, and right foot foul-smelling purulent open wound. Unfortunate patient has a poor follow-up, living with her and as per has been drinking daily heavily. Patient is stating that she finished with her antibiotics but has not followed up with her PCP. Today she is stating that she is feeling sore everywhere however denies any fever, shortness of breath, chest pain, chills, diarrhea or constipation. She has low appetite however is p.o. tolerant. In ED she was noted to have extensive right buttock decubitus ulcer, right anterior chest extensive candidiasis, and right foot posterior aspect necrotic foul-smelling wound. Hospitalist was consulted for admission. Hospital Course Hospital Course: (1) Right foot ulcer Mild improving. Status post bedside I&D. Surgery suggested BKA however patient is refusing. MRI right foot negative for osteomyelitis. Right foot x-ray suspicious for osteomyelitis. Right lower extremity arterial Doppler negative for any focal stenosis. Presented with right foot dorsal aspect 5.5 cm necrotic ulcer with fat layer is exposed. Polymicrobial growth in the wound culture. Sensitive to vancomycin and levofloxacin. Day 5 IV antibiotics. Day 5 IV vancomycin. Day 2 IV levofloxacin. Received 3 days of IV aztreonam. Continue broad-spectrum empiric IV antibiotics, wound care. Surgery consulted. Recommendations noted. (2) Cellulitis of chest wall Moderate improvement. Erythema and tenderness improving. Right breast cancer swollen tender, under breast candidiasis/or chest wall cellulitis improving. Patient does not have diabetes however is morbidly obese. Continue wound care, empiric broad-spectrum IV antibiotic, oral and topical antifungals. (3) Obesity BMI 44.9. TSH, T3 and T4 WNL. Hemoglobin A1c WNL. Diet and lifestyle modification recommended. (4) Tobacco abuse Currently taking Chantix. Resume home meds. (5) Decubitus ulcer of right buttock, stage 2 Right buttocks stage II decubitus ulcer. No sign of infection. Presented with stage II decubitus ulcer. Continue wound care. Frequent repositioning. (6) Alcohol dependency Daily alcohol drinker. Does not seem to be withdrawing. Folic acid, thiamine, multivitamins, D5NS, benzodiazepines, fall, seizure and aspiration precautions. (7) Asthma Wheezing on physical examination. Continue LABA, LABA, ICS, PRN duo nebs supplemental oxygen. (8) Opiate dependence Currently taking buprenorphine. Resume home meds. Monitor for withdrawal. (9) Hypoglycemia Improving. Patient endorsing low appetite. Does not like the food in the hospital. Likely due to low p.o. intake. We will obtain new hemoglobin A1c. Continue D5 NS, hypoglycemia protocol, encourage frequent snacking. Physical Exam Vital Signs: Temp Pulse Resp BP Pulse Ox 97.9 F 98 16 113/73 94 11/22/19 14:38 11/22/19 14:38 11/22/19 14:38 11/22/19 14:38 11/22/19 14:38 Intake & Output 11/22/19 11/23/19 11/24/19 06:59 06:59 06:59 Intake Total 1080 1460 Output Total 4475 1000 Balance -3395 460 Weight 107.8 kg General appearance: PRESENT: no acute distress, morbidly obese, well-developed, well-nourished Head exam: PRESENT: atraumatic, normocephalic Respiratory exam: PRESENT: clear to auscultation javier. ABSENT: rales, rhonchi, wheezes GI/Abdominal exam: PRESENT: normal bowel sounds, soft. ABSENT: distended, guarding, mass, organolmegaly, rebound, tenderness Extremities exam: PRESENT: full ROM, other - Right foot dorsal aspect wound looks clean,. ABSENT: calf tenderness, clubbing, pedal edema Neurological exam: PRESENT: alert, awake, oriented to person, oriented to place, oriented to time, oriented to situation, CN II-XII grossly intact. ABSENT: motor sensory deficit Results Laboratory Results: WBC 5.1 10^3/uL (4.0-10.5) 11/21/19 06:17 RBC 3.93 10^6/uL (3.72-5.28) 11/21/19 06:17 Hgb 11.9 g/dL (12.0-15.5) L 11/21/19 06:17 Hct 36.3 % (36.0-47.0) 11/21/19 06:17 MCV 92 fl (80-97) 11/21/19 06:17 MCH 30.4 pg (27.0-33.4) 11/21/19 06:17 MCHC 32.9 g/dL (32.0-36.0) 11/21/19 06:17 RDW 18.5 % (11.5-14.0) H 11/21/19 06:17 Plt Count 191 10^3/uL (150-450) 11/21/19 06:17 Lymph % (Auto) 19.3 % (13-45) 11/21/19 06:17 Dupage % (Auto) 11.2 % (3-13) 11/21/19 06:17 Eos % (Auto) 2.0 % (0-6) 11/21/19 06:17 Baso % (Auto) 0.7 % (0-2) 11/21/19 06:17 Absolute Neuts (auto) 3.4 10^3/uL (1.7-8.2) 11/21/19 06:17 Absolute Lymphs (auto) 1.0 10^3/uL (0.5-4.7) 11/21/19 06:17 Absolute Monos (auto) 0.6 10^3/uL (0.1-1.4) 11/21/19 06:17 Absolute Eos (auto) 0.1 10^3/uL (0.0-0.6) 11/21/19 06:17 Absolute Basos (auto) 0.0 10^3/uL (0.0-0.2) 11/21/19 06:17 Seg Neutrophils % 66.8 % (42-78) 11/21/19 06:17 ESR 54 mm/hr (0-30) H 11/17/19 15:02 PT 13.5 SEC (11.4-15.4) 11/19/19 09:10 INR 1.01 11/19/19 09:10 VBG pH 7.32 (7.30-7.42) 11/17/19 15:05 VBG pCO2 52.5 mmHg (35-63) 11/17/19 15:05 VBG HCO3 26.4 mmol/L (20-32) 11/17/19 15:05 VBG Base Excess -0.6 mmol/L 11/17/19 15:05 Sodium 133.8 mmol/L (137-145) L 11/22/19 07:30 Potassium 3.6 mmol/L (3.6-5.0) 11/22/19 07:30 Chloride 94 mmol/L (98-107) L 11/22/19 07:30 Carbon Dioxide 36 mmol/L (22-30) H 11/22/19 07:30 Anion Gap 4 (5-19) L 11/22/19 07:30 BUN 3 mg/dL (7-20) L 11/22/19 07:30 Creatinine 0.40 mg/dL (0.52-1.25) L 11/22/19 07:30 Est GFR ( Amer) > 60 (>60) 11/22/19 07:30 Est GFR (MDRD) Non-Af > 60 (>60) 11/22/19 07:30 Glucose 102 mg/dL (75-110) 11/22/19 07:30 POC Glucose 112 mg/dL (70-110) H 11/22/19 12:14 Hemoglobin A1c % 5.8 % (4.7-6.0) 11/21/19 06:17 Lactic Acid 0.9 mmol/L (0.7-2.1) 11/17/19 21:04 Calcium 8.7 mg/dL (8.4-10.2) 11/22/19 07:30 Magnesium 1.5 mg/dL (1.6-2.3) L 11/21/19 06:17 Total Bilirubin 0.4 mg/dL (0.2-1.3) 11/22/19 07:30 Direct Bilirubin 0.1 mg/dL (0.0-0.4) 11/22/19 07:30 Neonat Total Bilirubin Not Reportable 11/22/19 07:30 Neonat Direct Bilirubin Not Reportable 11/22/19 07:30 Neonat Indirect Bili Not Reportable 11/22/19 07:30 AST 35 U/L (14-36) 11/22/19 07:30 ALT 9 U/L (<35) 11/22/19 07:30 Alkaline Phosphatase 133 U/L (38-126) H 11/22/19 07:30 C-Reactive Protein 201.9 mg/L (<10.0) H 11/17/19 15:02 Total Protein 6.5 g/dL (6.3-8.2) 11/22/19 07:30 Albumin 2.5 g/dL (3.5-5.0) L 11/22/19 07:30 Triglycerides 109 mg/dL (<150) 11/21/19 06:17 Cholesterol 126.13 mg/dL (0-200) 11/21/19 06:17 LDL Cholesterol Direct 84 mg/dL (<100) 11/21/19 06:17 VLDL Cholesterol 22.0 mg/dL (10-31) 11/21/19 06:17 HDL Cholesterol 28 mg/dL (>40) L 11/21/19 06:17 Time Trough Drawn 1402 11/20/19 14:02 Vancomycin Trough 9.7 ug/mL (5.0-20.0) 11/20/19 14:02 COVID-19 Source NASOPHARYNGEAL 11/18/19 16:20 COVID-19 ([facility]) NOT DETECTED 11/18/19 16:20 Impressions: Foot X-Ray 11/17/19 00:00 IMPRESSION: 1. Linear lucencies at the bases of the 2nd and 3rd proximal phalanges, may represent artifact versus nondisplaced fractures. Please correlate with point tenderness. 2. Ill-defined areas of lucency at the heads of the 4th and 5th right metatarsals, underlying osteomyelitis cannot be excluded. Contrast-enhanced MRI can help in further evaluation. 3. Diffuse soft tissue edema. Skin defect at the dorsum of the right foot, probably corresponding to known wound. Chest X-Ray 11/17/19 15:18 IMPRESSION: NO ACUTE RADIOGRAPHIC FINDING IN THE CHEST. Lower Extremity Ultrasound 11/18/19 00:00 IMPRESSION: 1. Triphasic inflow. 2. No focal stenosis. Lower Extremity MRI 11/19/19 10:50 IMPRESSION: Diffuse soft tissue edema about the anterior aspect of the lower leg extending to the dorsum of the hindfoot, midfoot, and forefoot. An associated large soft tissue ulcer about the dorsum of the forefoot extending laterally. While there is mild bone marrow edema signal about the second through fifth metatarsal heads, this is nonspecific/potentially reactive as no concomitant diminished T1 signal is evident at these locations to confirm the presence of osteomyelitis. Specifically, there is no confirmatory evidence of osteomyelitis on this exam. No drainable abscess identified. 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 copyright 2010 [employer]- All Rights Reserved Stroke Is this a Stroke Patient?: No Acute Heart Failure - Is this a Heart Failure Patient?: No
== END 2019-11-22 15:40 | disposition home or self-care (01) | DRG 623 ==
LOC: ER 15:00 → EH 18:04 → 4S 22:00 → 3N 11-18 20:06 → 5 11-21 01:14
PROVIDERS: ADMIT Internal Medicine; ATTEND Internal Medicine
PROC: 0JBQ0ZZ Excision of Right Foot Subcutaneous Tissue and Fascia, Open Approach (ICD-10-PCS; principal; 2019-11-18)
DX: E11.621 Type 2 diabetes mellitus with foot ulcer (principal); L03.313 Cellulitis of chest wall; F11.20 Opioid dependence, uncomplicated; Z68.41 Body mass index [BMI] 40.0-44.9, adult; L89.312 Pressure ulcer of right buttock, stage 2; E11.622 Type 2 diabetes mellitus with other skin ulcer; I11.0 Hypertensive heart disease with heart failure; E11.649 Type 2 diabetes mellitus with hypoglycemia without coma; D64.9 Anemia, unspecified; B37.2 Candidiasis of skin and nail; J44.9 Chronic obstructive pulmonary disease, unspecified; E66.01 Morbid (severe) obesity due to excess calories; I87.2 Venous insufficiency (chronic) (peripheral); Z53.29 Procedure and treatment not carried out because of patient's decision for other reasons; L97.512 Non-pressure chronic 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 layer exposed; F10.20 Alcohol dependence, uncomplicated; M19.90 Unspecified osteoarthritis, unspecified site; F32.9 Major depressive disorder, single episode, unspecified; N61.0 Mastitis without abscess; Z72.0 Tobacco use; Z79.51 Long term (current) use of inhaled steroids; Z79.899 Other long term (current) drug therapy; Z85.118 Personal history of other malignant neoplasm of bronchus and lung; Z79.52 Long term (current) use of systemic steroids; Z88.6 Allergy status to analgesic agent; Z88.0 Allergy status to penicillin; Z88.8 Allergy status to other drugs, medicaments and biological substances; Z11.59 Encounter for screening for other viral diseases
CPT/HCPCS: 36415; 51702; 71045; 80048; 80053; 80061; 80202; 82803; 82962; 83036; 83605; 83735; 85025; 85027; 85610; 85652; 86140; 87040; 87070; 87075; 87077; 87186; 87205; 87635; 93005; 93010; 93925; 94640; 96361; 96374; 99285; C9803; J0571; J1650; J1956; J2060; J3370; J3475; J3490; J7030; J7060; J7120

== ENCOUNTER 2019-12-25 18:27 | Inpatient (IN) | payer OTHER ==
[2019-12-25 19:11] LABS: HEMOGLOBIN 10.3 g/dL (12.0-15.5); MEAN CORPUSCULAR HEMOGLOBIN 31.2 pg (27.0-33.4); MEAN CORPUSCULAR HGB CONC 33.3 g/dL (32.0-36.0); MEAN CORPUSCULAR VOLUME 94 fl (80-97); PLATELET COUNT 119 10^3/uL (150-450); RED BLOOD COUNT 3.31 10^6/uL (3.72-5.28); RED CELL DISTRIBUTION WIDTH 18.4 % (11.5-14.0); WHITE BLOOD COUNT 5.1 10^3/uL (4.0-10.5)
--- NOTE | 2019-12-25 19:12 | RADIOLOGY REPORT (SQ) ---
EXAM DESCRIPTION: CHEST SINGLE VIEW IMAGES COMPLETED DATE/TIME: 12/25/2019 5:56 pm REASON FOR STUDY: shortness of breath COMPARISON: 11/17/2019 EXAM PARAMETERS: NUMBER OF VIEWS: One view. TECHNIQUE: Single frontal radiographic view of the chest acquired. RADIATION DOSE: NA LIMITATIONS: None. FINDINGS: LUNGS AND PLEURA: Increased soft tissue attenuation at the lung bases probably secondary t o AP portable technique. No definitive focal consolidation or pleural effusion. No evidence of pneu mothorax. MEDIASTINUM AND HILAR STRUCTURES: No masses. Contour normal. HEART AND VASCULAR STRUCTURES: Severe enlargement of the heart is stable from most recent examination , with a more rounded contour than on prior examination performed 09/10/2019. No pulmonary vascular co ngestion. BONES: No acute findings. HARDWARE: Right MediPort catheter with tip in the upper SVC unchanged. OTHER: No other significant finding. IMPRESSION: Severe rounded contour of the heart has increased significantly since 09/10/2019, possibly representing a moderate to large pericardial effusion. Echocardiogram may provide additional inform ation. No acute consolidation. TECHNICAL DOCUMENTATION: JOB ID: [id number] 2010 [employer]- All Rights Reserved Reading location - IP/workstation name: [email or web address]
[2019-12-25 19:27] LABS: ALBUMIN 3.2 g/dL (3.5-5.0); ALKALINE PHOSPHATASE 158 U/L (38-126); ANION GAP 11 (5-19); ASPARTATE AMINO TRANSFERASE 31 U/L (14-36); BILIRUBIN,DIRECT 0.4 mg/dL (0.0-0.4); BILIRUBIN,TOTAL 0.5 mg/dL (0.2-1.3); BLOOD UREA NITROGEN 8 mg/dL (7-20); CALCIUM 8.7 mg/dL (8.4-10.2); CARBON DIOXIDE 26 mmol/L (22-30); CHLORIDE 97 mmol/L (98-107); GLUCOSE 77 mg/dL (75-110); POTASSIUM 4.3 mmol/L (3.6-5.0); TOTAL PROTEIN 7.4 g/dL (6.3-8.2)
[2019-12-25 19:46] LABS: ABSOLUTE LYMPHOCYTES# (MANUAL) 1.1 10^3/uL (0.5-4.7); ABSOLUTE MONOCYTES # (MANUAL) 0.4 10^3/uL (0.1-1.4); BASOPHILS % (MANUAL) 0 % (0-2); EOSINOPHILS % (MANUAL) 0 % (0-6); LYMPHOCYTES % (MANUAL) 22 % (13-45); MONOCYTES % (MANUAL) 8 % (3-13); NUCLEATED RED BLOOD CELLS 4 /100 WBC (0); SEGMENTED NEUTROPHILS % (MAN) 70 % (42-78); TOTAL CELLS COUNTED 100
[2019-12-25 19:48] LABS: ANISOCYTOSIS 1+; OVALOCYTES SLIGHT; PLATELET COMMENT DECREASED; TEAR DROP CELLS SLIGHT
--- NOTE | 2019-12-25 20:30 | ER Document Report ---
ED General - General Chief Complaint: Abnormal Lab Results Stated Complaint: ABNORMAL LABS Time Seen by Provider: 12/25/19 19:37 Primary Care Provider: RAUL LANZA MD [NO LOCAL MD] - Follow up as needed TRAVEL OUTSIDE OF THE [place] IN LAST 30 DAYS: No - HPI Onset: Last week Onset/Duration: Gradual Quality of pain: Sharp Associated symptoms: Leg swelling, Shortness of breath. denies: Chest pain, N ausea, Vomiting Exacerbated by: Walking Relieved by: Remaining still Notes: Patient is a 59-year-old female with a past medical history of lung cancer who presents with shortness of breath and swelling. Patient is a very poor historian. She states she is not currently on any chemotherapy. She had an appointment to get a CAT scan by oncology, Dr. Robertson, yesterday. He called her and told her to go to the ED because the radiologist called him and said she has pleural effusions and cardiomegaly and fluid. He was concern for a CHF exacerbation especially with her bilateral leg swelling. Patient states she has been short of breath for significant amount of time but it has worsened this week. It is worse with walking. She has been wearing 2 L of oxygen at day and night which is normal for her. She denies any chest pain. Patient has a chronic cough. - Related Data Allergies/Adverse Reactions: aspirin [Aspirin] Allergy (Verified 10/06/18 17:54) NSAIDS (Non-Steroidal Anti-Inflamma [Nsaids] Allergy (Verified 10/06/18 17:54) Penicillins Allergy (Verified 10/06/18 17:54) Past Medical History - General Information source: Patient - Social History Smoking Status: Current Every Day Smoker Frequency of alcohol use: None Drug Abuse: None Family History: Reviewed & Not Pertinent - Past Medical History Cardiac Medical History: Reports: Hx Hypertension Denies: Hx Coronary Artery Disease, Hx Heart Attack Pulmonary Medical History: Reports: Hx Asthma, Hx Bronchitis, Hx COPD, Hx Pneumonia Neurological Medical History: Denies: Hx Cerebrovascular Accident, Hx Seizures Renal/ Medical History: Denies: Hx Peritoneal Dialysis Musculoskeletal Medical History: Reports Hx Arthritis Psychiatric Medical History: Reports: Hx Depression Past Surgical History: Reports: Hx Tubal Ligation - Immunizations Hx Diphtheria, Pertussis, Tetanus Vaccination: Yes Review of Systems - Review of Systems Notes: CONSTITUTIONAL: No fever, fatigue or weight loss. SKIN: No rash. HENT: No congestion, ear pain, or sore throat. EYES: No recent vision problems or eye pain. CARDIOVASCULAR: No chest pain. Positive for swelling in the bilateral lower extremities and left arm. RESPIRATORY: Positive for chronic cough. Positive for worsening shortness of breath. GASTROINTESTINAL: No abdominal pain or diarrhea. MUSCULOSKELETAL: No joint pain or swelling. LYMPHATIC: No swollen glands. NEUROLOGIC: No seizures. No headache, focal weakness or sensory changes. HEMATOLOGIC: No unusual bruising or bleeding. PSYCHIATRIC: No depression or anxiety. Physical Exam - Vital signs Vitals: Temp Pulse Resp BP Pulse Ox 97.7 F 100 22 H 109/74 91 L 12/25/19 18:39 12/25/19 18:39 12/25/19 18:39 12/25/19 18:39 12/25/19 18:39 - Notes Notes: VITAL SIGNS: Within normal limits. GENERAL: No acute distress, non-toxic appearance. HEAD: Normal with no signs of head trauma. EYES: EOMI, conjunctiva normal, no discharge. NOSE: Normal. NECK: Normal range of motion, no tenderness, supple, no lymphadenopathy, No adenopathy, no JVD. CHEST: Crackles and coarse lung sounds bilaterally. CARDIAC: Regular rate and rhythm. S1 and S2, without murmurs, gallops, or rubs. VASCULAR: Positive edema to bilateral lower extremities and left arm. ABDOMEN: Normal and soft with no tenderness GENITOURINARY: Normal, No tenderness LYMPATHTIC: No lymphadenopathy noted. MUSCULOSKELETAL: Good range of motion of all major joints. Ulcer to right dorsal foot, patient states is chronic, does not appear infected. NEUROLOGICAL: Alert and oriented x 3. No focal sensory or strength deficits. Speech normal. Follows commands appropriately. PSYCHIATRIC: Normal Affect, judgement and mood. SKIN: Normal appearance with no rashes or lesions. Course - Re-evaluation Re-evalutation: 12/25/19 21:19 I discussed with oncology and cardiology. Oncology sent her over because he was concerned for the fluid in her lungs and cardiomegaly. He denied any pericardial effusion on CT scan he got outpatient. I also discussed this with cardiology. They are comfortable with her staying in the hospital here and getting diuresed and an echocardiogram. I obtained the ultrasound of her bilateral lower extremities and left arm as they are swollen. Likely, patient will be admitted to the hospitalist. She is on her normal 2 L. Dopplers were negative for DVT. Patient was given Lasix and will be monitored. Patient will be admitted to the hospitalist service. 12/26/19 01:28 - Vital Signs Vital signs: Temp Pulse Resp BP Pulse Ox 98.7 F 100 16 114/92 H 95 12/25/19 19:28 12/25/19 18:39 12/26/19 01:01 12/26/19 01:01 12/26/19 01:01 - Laboratory Result Diagrams: 12/25/19 19:04 12/25/19 19:04 Laboratory results interpreted by me: 12/25/19 12/25/19 12/25/19 19:04 19:04 19:04 RBC 3.31 L Hgb 10.3 L Hct 31.0 L RDW 18.4 H Plt Count 119 L Sodium 133.5 L Chloride 97 L Alkaline Phosphatase 158 H NT-Pro-B Natriuret Pep 1840 H Albumin 3.2 L - Diagnostic Test Radiology reviewed: Image reviewed, Reports reviewed - EKG Interpretation by Ar EKG shows normal: Sinus rhythm Rate: Normal When compared to previous EKG there are: No significant change Additional EKG results interpreted by me: 12/26/19 01:28 Sinus rhythm at a rate of 85. QTc 476. No acute ST changes. No significant change from previous EKG. Discharge - Discharge Clinical Impression: Fluid overload Qualifiers: Hypervolemia type: unspecified Qualified Code(s): E87.70 - Fluid overload, unspecified Condition: Stable Disposition: ADMITTED INPATIENT Admitting Provider: Laura (Hospitalist) Unit Admitted: Medical Floor Referrals: RAUL LANZA MD [NO LOCAL MD] - Follow up as needed
[2019-12-25] MEDS ORDERED: FUROSEMIDE INJ/PF 40 MG/4 ML SDV IV ONE (21:26)
--- NOTE | 2019-12-25 22:09 | RADIOLOGY REPORT (SQ) ---
EXAM DESCRIPTION: US EXTREMITY VEINS UNILATERAL, US EXTREMITY VEINS BILATERAL COMPLETED DATE/TME: 12/25/2019 20:14 CLINICAL HISTORY: 59 years, Female, left arm swelling COMPARISON: EXAM DESCRIPTION: CLINICAL HISTORY: 59 years Female left arm swelling COMPARISON: None. TECHNIQUE: Duplex and color Doppler imaging performed to evaluate the extremity deep venous structures. Compression imaging and augmentation imaging performed. FINDINGS: Exam is limited by severe edema and swelling. No thrombus is identified in the deep venous structures imaged. There is normal flow, compressibility, and augmentation throughout. IMPRESSION: No DVT is identified. TECHNIQUE: LIMITATIONS: None. FINDINGS: IMPRESSION: copyright 2010 [employer]- All Rights Reserved
[2019-12-25 22:48] LABS: APPEARANCE,URINE CLEAR; BILIRUBIN,URINE NEGATIVE (NEGATIVE); COLOR,URINE YELLOW; GLUCOSE, URINE NEGATIVE (NEGATIVE); KETONES,URINE NEGATIVE (NEGATIVE); LEUKOCYTE ESTERASE,URINE NEGATIVE (NEGATIVE); NITRITE,URINE NEGATIVE (NEGATIVE); PROTEIN,URINE NEGATIVE (NEGATIVE); UROBILINOGEN,URINE NEGATIVE mg/dL (<2.0)
[2019-12-25] MEDS ORDERED: MAG HYDROX/AL HYDROX/SIMETH SUSP 30 ML UDCUP PO PRN (22:51)
[2019-12-25] MEDS ORDERED: MAGNESIUM HYDROXIDE SUSP 30 ML UDCUP PO PRN (22:51)
[2019-12-25] MEDS ORDERED: PROMETHAZINE HCL INJ 25 MG/1 ML VIAL IV PRN (22:51)
[2019-12-25] MEDS ORDERED: LORAZEPAM INJ 2 MG/1 ML VIAL IV PRN (22:58)
[2019-12-25] MEDS ORDERED: MELATONIN 5 MG TABLET PO PRN (22:58)
[2019-12-25] MEDS ORDERED: GUAIFENESIN SYRP 200 MG/10 ML UDC PO PRN (22:58)
[2019-12-25] MEDS ORDERED: MORPHINE SULFATE 10 MG/ML INJ IV PRN ×2 (22:58)
[2019-12-25] MEDS ORDERED: METOPROLOL TARTRATE PF/INJ 5 MG/5 ML SDV IV PRN (22:58)
[2019-12-25] MEDS ORDERED: NICOTINE 21 MG/24 HR PATCH.TD24 TD PRN (22:58)
[2019-12-26] MEDS: FUROSEMIDE INJ/PF 20 MG/2 ML SDV IV SCH ×5 (00:07→23:43)
[2019-12-26 01:32] LABS: CREATINE KINASE MB 1.47 ng/mL (<4.55)
[2019-12-26 01:33] LABS: TROPONIN I < 0.012 ng/mL
[2019-12-26] MEDS: HEPARIN SOD (PORCINE) 5,000 UNIT/ML 1 ML VIAL SUBCUT SCH ×3 (05:41→21:39)
[2019-12-26] MEDS ORDERED: PANTOPRAZOLE SODIUM 40 MG TABLET.DR PO SCH (06:00)
--- NOTE | 2019-12-26 06:31 | PDOC H&P ---
History of Present Illness Admission Date/PCP: 12/25/19 22:00 GALA FINNEY MD Patient complains of: Dyspnea History of Present Illness: DYLAN SWARTZ is a 59 year old female who presented to the emergency room with a one-week history of dyspnea. She admits gradually worsening dyspnea over the course of the last week, worsened by exertion and accompanied by increased swelling in her bilateral lower extremities and her left arm. She denies other associated or accompanying signs and symptoms. She admits chronic respiratory failure with hypoxia treated with supplemental oxygen at 2 L/min via nasal cannula which does not improve her current dyspnea. She denies prior similar episodes. She has a very poor historian but does admit a history of lung cancer. She has not identified any additional aggravating or ameliorating factors for her dyspnea. In the emergency room she was found to have evidence of acute congestive heart failure via chest x-ray and examination showed javier ateral lower extremity edema as well as mild edema of the left upper extremity. Emergency room physician consulted Dr. Bergeron for cardiology evaluation and he recommended the patient be admitted to the hospital and treated for heart failure, and he agreed to see the patient in the morning. Patient was subsequently admitted to the medical service for further evaluation and treatment. Past Medical History Cardiac Medical History: Reports: Hypertension Denies: Atrial Fibrillation, Congestive Heart Failure, Coronary Artery Disease, DVT, Myocardial Infarction, Hyperlipidema, Pulmonary Embolism Pulmonary Medical History: Reports: Asthma, Bronchitis, Chronic Obstructive Pulmonary Disease (COPD), Pneumonia, Respiratory Failure - Chronic on home O2, Sleep Apnea EENT Medical History: Denies: Cataracts, Ears - Hearing aids Neurological Medical History: Denies: Hemorrhagic CVA, Ischemic CVA, Seizures Endocrine Medical History: Reports: Obesity Denies: Diabetes Mellitus Type 1, Diabetes Mellitus Type 2, Hyperthyroidism, Hypothyroidism Renal/ Medical History: Denies: Chronic Kidney Disease, Nephrolithiasis Malignancy Medical History: Reports: Lung Cancer GI Medical History: Reports: Gastroesophageal Reflux Disease Denies: Cirrhosis, Hepatitis, Peptic Ulcer Disease Musculoskeltal Medical History: Reports: Arthritis, Gout Denies: Fibromyalgia Skin Medical History: Denies: Eczema, Psoriasis Psychiatric Medical History: Reports: Depression, Tobacco Dependency Denies: Alcohol Dependency, Substance Abuse Traumatic Medical History: Reports: None Hematology: Reports: Anemia Denies: Bleeding Tendencies Infectious Medical History: Reports: None Past Surgical History Past Surgical History: Reports: Tubal Ligation, Other - Unilateral salpingectomy, colonoscopy Social History Information Source: Patient, [facility] Records Lives with: Spouse/Significant other Smoking Status: Current Every Day Smoker Electronic Cigarette use?: No Frequency of Alcohol Use: Occasional - Past history of heavy alcohol use Hx Recreational Drug Use: Yes - Remote past, no current use Hx Prescription Drug Abuse: No - Advance Directive Resuscitation Status: Full Code Surrogate healthcare decision maker:: Shadi Dunnam Family History Family History: CAD, Malignancy Parental Family History Reviewed: Yes Children Family History Reviewed: No Sibling(s) Family History Reviewed.: Yes Medication/Allergy Home Medications: Albuterol Sulfate [Albuterol Sulfate Hfa] 1 puff IH Q6HP PRN 09/04/19 Fluticasone/Umeclidin/Vilanter [Trelegy 100-62.5-25 Mcg Ellipta 14 Dose/Dpi] 1 puff IH DAILY 09/04/19 Hydrocortisone [Hydrocortisone 2.5% Cream 28 gm (Clinic Use)] 1 applic TOP BID 09/04/19 Pantoprazole Sodium [Protonix [address] Tablet] 40 mg PO DAILY 09/04/19 Tussionex 5 ml PO Q8HP PRN 09/04/19 Gabapentin [Neurontin 100 mg Capsule] 100 mg PO TID 11/18/19 Levofloxacin [Levaquin 500 mg Tablet] 500 mg PO DAILY 7 Days #7 tablet 11/22/19 Linezolid 600 mg PO BID 12 Days #24 tablet 11/22/19 Nystatin [Mycostatin Cream 15 gm] 1 applic TP BID 7 Days #1 tube 11/22/19 Allergies/Adverse Reactions: aspirin [Aspirin] Allergy (Verified 10/06/18 17:54) NSAIDS (Non-Steroidal Anti-Inflamma [Nsaids] Allergy (Verified 10/06/18 17:54) Penicillins Allergy (Verified 10/06/18 17:54) Review of Systems Constitutional: ABSENT: chills, fever(s) Eyes: ABSENT: visual disturbances, other - Eye pain Ears: ABSENT: hearing changes, other - Ear pain Nose, Mouth, and Throat: ABSENT: headache(s), sore throat Cardiovascular: PRESENT: as per HPI, dyspnea on exertion, edema. ABSENT: chest pain, orthropnea, palpitations Respiratory: PRESENT: cough - Chronic, dyspnea - Chronic. ABSENT: hemoptysis, sputum Gastrointestinal: ABSENT: abdominal pain, constipation, diarrhea, nausea, v omiting Genitourinary: ABSENT: dysuria, hematuria Musculoskeletal: PRESENT: back pain - Chronic, other - Chronic pain syndrome. ABSENT: joint swelling, muscle weakness Integumentary: ABSENT: pruritus, rash Neurological: ABSENT: confusion, convulsions, focal weakness, memory loss, syncope Psychiatric: ABSENT: anxiety, depression Endocrine: ABSENT: cold intolerance, heat intolerance Hematologic/Lymphatic: ABSENT: easy bleeding, easy bruising Allergic/Immunologic: ABSENT: seasonal rhinorrhea Physical Exam Vital Signs: Temp Pulse Resp BP Pulse Ox 98.7 F 100 12 113/69 94 12/25/19 19:28 12/25/19 18:39 12/25/19 20:00 12/25/19 19:01 12/25/19 19:28 Intake & Output 12/23/19 12/24/19 12/25/19 23:59 23:59 23:59 Weight 102.9 kg General appearance: PRESENT: cooperative, mild distress - Secondary to dyspnea Head exam: PRESENT: atraumatic, normocephalic Eye exam: PRESENT: conjunctiva pink. ABSENT: conjunctival injection, scleral icterus Ear exam: PRESENT: normal external ear exam. ABSENT: bleeding, drainage Mouth exam: PRESENT: dry mucosa, neck supple Neck exam: ABSENT: thyromegaly, tracheal deviation Respiratory exam: PRESENT: decreased breath sounds - Bilateral bases, rales - Fine bibasilar rales on auscultation, symmetrical Cardiovascular exam: PRESENT: RRR. ABSENT: clicks, gallop, rubs Pulses: PRESENT: normal carotid pulses, normal radial pulses Vascular exam: PRESENT: normal capillary refill. ABSENT: pallor GI/Abdominal exam: PRESENT: normal bowel sounds, soft. ABSENT: tenderness Rectal exam: PRESENT: deferred Extremities exam: PRESENT: pedal edema - Bipedal edema, +1 edema - Left upper extremity, +2 edema - 2+ pretibial edema bilaterally. ABSENT: joint swelling Musculoskeletal exam: ABSENT: deformity, dislocation Neurological exam: PRESENT: alert, oriented to person, oriented to place, orien antonella to time, CN II-XII grossly intact. ABSENT: motor sensory deficit Psychiatric exam: PRESENT: depressed, flat affect Skin exam: PRESENT: dry, intact, warm, other - 4 x 5 cm moderate depth ulcer on the dorsum of the right foot is noted.. ABSENT: jaundice, rash, urticaria Results Laboratory Results: 12/25/19 19:04 12/25/19 19:04 12/25/19 12/25/19 19:04 19:04 WBC 5.1 RBC 3.31 L Hgb 10.3 L Hct 31.0 L MCV 94 MCH 31.2 MCHC 33.3 RDW 18.4 H Plt Count 119 L Seg Neutrophils % Not Reportable Sodium 133.5 L Potassium 4.3 Chloride 97 L Carbon Dioxide 26 Anion Gap 11 BUN 8 Creatinine 0.63 Est GFR ( Amer) > 60 Glucose 77 Calcium 8.7 Total Bilirubin 0.5 AST 31 Alkaline Phosphatase 158 H Total Protein 7.4 Albumin 3.2 L 12/25/19 19:04 Troponin I 0.012 Impressions: Chest X-Ray 12/25/19 18:43 IMPRESSION: Severe rounded contour of the heart has increased significantly since 09/10/2019, possibly representing a moderate to large pericardial effusion. Echocardiogram may provide additional information. No acute consolidation. Venous Doppler Study 12/25/19 20:14 IMPRESSION: No DVT is identified. TECHNIQUE: LIMITATIONS: None. FINDINGS: IMPRESSION: copyright 2010 [employer]- All Rights Reserved Assessment and Plan - Diagnosis (1) Acute congestive heart failure Qualifiers: Heart failure type: unspecified Qualified Code(s): I50.9 - Heart failure, unspecified Is this a current diagnosis for this admission?: Yes (2) Acute on chronic respiratory failure with hypoxia Is this a current diagnosis for this admission?: Yes (3) Ulcer of right foot with fat layer exposed Is this a current diagnosis for this admission?: Yes (4) Chronic back pain Qualifiers: Back pain location: back pain in unspecified location Back pain laterality: unspecified Qualified Code(s): M54.9 - Dorsalgia, unspecified; G89.29 - Other chronic pain Is this a current diagnosis for this admission?: Yes (5) Chronic venous insufficiency of lower extremity Is this a current diagnosis for this admission?: Yes (6) Morbid obesity Is this a current diagnosis for this admission?: Yes (7) Lung cancer Qualifiers: Laterality: unspecified laterality Lung location: unspecified part of lung Qualified Code(s): C34.90 - Malignant neoplasm of unspecified part of unspecified bronchus or lung Is this a current diagnosis for this admission?: Yes (8) Tobacco abuse Is this a current diagnosis for this admission?: Yes - Plan Summary Summary: Patient will be admitted to the medical floor on telemetry where she will receive routine supportive and symptomatic cares. Dr. Bergeron will be consulted for cardiology. Surgical consultation with Dr. Villasenor will be obtained on a routine basis in the morning. Patient will have an echocardiogram and serial cardiac enzymes performed. She will receive morphine sulfate 2 mg IV every hour as needed for severe dyspnea. She will receive furosemide 20 mg IV every 6 hours. She will receive morphine sulfate 2 to 4 mg IV every 2 hours as needed for pain control. She will receive Ativan 1 mg IV every 4 hours as needed for anxiety or restlessness. She will be treated with a cardiac diet. Patient's [facility] home medications will be restarted, as appropriate, when her medication list has been verified and reconciled. CBCs, metabolic profiles, magnesium levels, BNP's and additional laboratory and/or radiographic evaluations will be obtained as needed. Smoking cessation is advised and counseled briefly at the bedside. A nicotine replacement patch is available for the patient's use, if desired. - Time Time Spent with patient: 15-24 minutes Smoking Cessation Education: 3 to 10 minutes Medications reviewed and adjusted accordingly: Yes Anticipated Discharge Disposition: Home with Home Health Anticipated Discharge Timeframe: within 72 hours - Inpatient Certification Based on my medical assessment, after consideration of the patient's comorbidities, presenting symptoms, or acuity I expect that the services needed warrant INPATIENT care.: Yes I certify that my determination is in accordance with my understanding of Medicare's requirements for reasonable and necessary INPATIENT services [42 CFR 412.3e].: Yes Medical Necessity: Significant Comorbidiites Make Outpatient Treatment Too Risky, Need For Continuous Telemetry Monitoring
[2019-12-26 07:10] LABS: HEMATOCRIT 30.1 % (36.0-47.0); HEMOGLOBIN 10.1 g/dL (12.0-15.5); MEAN CORPUSCULAR HEMOGLOBIN 31.1 pg (27.0-33.4); MEAN CORPUSCULAR HGB CONC 33.6 g/dL (32.0-36.0); MEAN CORPUSCULAR VOLUME 93 fl (80-97); PLATELET COUNT 112 10^3/uL (150-450); RED BLOOD COUNT 3.25 10^6/uL (3.72-5.28); RED CELL DISTRIBUTION WIDTH 18.4 % (11.5-14.0); WHITE BLOOD COUNT 3.6 10^3/uL (4.0-10.5)
[2019-12-26 07:32] LABS: ANION GAP 7 (5-19); BLOOD UREA NITROGEN 7 mg/dL (7-20); CALCIUM 8.6 mg/dL (8.4-10.2); CARBON DIOXIDE 33 mmol/L (22-30); CHLORIDE 96 mmol/L (98-107); CHOLESTEROL 103.29 mg/dL (0-200); CREATINE KINASE 49 U/L (30-135); GLUCOSE 87 mg/dL (75-110); POTASSIUM 3.7 mmol/L (3.6-5.0); TRIGLYCERIDES 78 mg/dL (<150)
[2019-12-26] MEDS ORDERED: LIDOCAINE 1% INJ-PF (10 MG/ML) 30 ML SDV ONE ×2 (07:34→07:38)
[2019-12-26 07:42] LABS: CREATINE KINASE MB 1.29 ng/mL (<4.55); DIRECT LDL 33 mg/dL (<100)
[2019-12-26 07:50] LABS: TROPONIN I < 0.012 ng/mL
--- NOTE | 2019-12-26 08:10 | Operative Report ---
Operative Report DATE OF SURGERY: 12/26/19 PREOPERATIVE DIAGNOSIS: 1. Right chronic foot wound, dorsal aspect. 2. Morbid obesity. 3. Congestive heart failure. 4. Chronic venous hypertension of the lower extremities POSTOPERATIVE DIAGNOSIS: Same OPERATION: Excisional debridement of eschar dorsal aspect right foot SURGEON: GABBY MANCILLA ANESTHESIA: Local TISSUE REMOVED OR ALTERED: Nonviable tissue COMPLICATIONS: None ESTIMATED BLOOD LOSS: Scant INTRAOPERATIVE FINDINGS: See below PROCEDURE: Patient was examined in the emergency department, room 9. The right foot was exposed. Patient has a chronic 7+ centimeters diameter right dorsal foot wound, previously excisionally debrided, with exposed tendons. Half of the wound is granulating with overlying loose yellow eschar. The other half has exposed tendons with additional cellular slough. Surgical plan and surgical timeout performed. The right foot was exposed, prepped with Betadine. At bedside the open wound was anesthetized with 1% plain lidocaine approximately 10 cc. Using pickups and knife blade, the devitalized eschar over the tendon and chronic granulation tissue was excised. The wound was washed with a chlorhexidine scrub brush. Patient tolerated this fairly well. Cultures were performed. The edge of the wound including a perimeter skin was intact and needed no further debridement. Tissue removed was approximately 3 g. The wound was dressed with Xeroform, gauze, Kerlix dressing. Plan: 1. Continue local wound care; orders written 2. Patient to follow-up with [facility] on outpatient basis 3. Patient's comorbid conditions, and mobility issues will continue to render this chronic wound a challenge to heal 4. Surgery will sign off at this time; please reconsult if clinically indicated
[2019-12-26 08:25] LABS: ABSOLUTE LYMPHOCYTES# (MANUAL) 0.8 10^3/uL (0.5-4.7); ABSOLUTE MONOCYTES # (MANUAL) 0.3 10^3/uL (0.1-1.4); BASOPHILS % (MANUAL) 1 % (0-2); EOSINOPHILS % (MANUAL) 4 % (0-6); LYMPHOCYTES % (MANUAL) 20 % (13-45); MONOCYTES % (MANUAL) 7 % (3-13); SEGMENTED NEUTROPHILS % (MAN) 65 % (42-78); TOTAL CELLS COUNTED 100
[2019-12-26 08:27] LABS: ANISOCYTOSIS 2+; POLYCHROMASIA SLIGHT
[2019-12-26 08:29] LABS: TARGET CELLS 1+
[2019-12-26 08:30] LABS: POIKILOCYTOSIS 1+; SCHISTOCYTES SLIGHT
[2019-12-26 08:31] LABS: PLATELET COMMENT DECREASED
[2019-12-26] MEDS: MAGNESIUM SULFATE/D5W 1 GM/100 ML RTUPB IV SCH ×2 (09:05→10:18)
--- NOTE | 2019-12-26 09:16 | EKG REPORT ---
SEVERITY:- BORDERLINE ECG - SINUS RHYTHM BORDERLINE T ABNORMALITIES, ANTERIOR LEADS : Confirmed by: Aileen Munoz 26-Dec-2019 09:16:18
[2019-12-26] MEDS ORDERED: MORPHINE SULFATE 10 MG/ML INJ IV ONE (09:30)
[2019-12-26] MEDS: POTASSIUM CHLORIDE 10 MEQ TABLET.ER PO SCH ×3 (09:41→16:30)
[2019-12-26] MEDS ORDERED: PROMETHAZINE HCL INJ 25 MG/1 ML VIAL IV PRN (10:00)
[2019-12-26] MEDS: DOCUSATE SODIUM 100 MG CAPSULE PO SCH (10:18)
[2019-12-26] MEDS: CLOPIDOGREL BISULFATE 75 MG TABLET PO SCH (10:18)
[2019-12-26] MEDS ORDERED: ALBUTEROL SULFATE HFA (90 MCG/PUFF) 8 GM MDI (1 MDI/ER DISP) IH PRN (10:46)
[2019-12-26] MEDS ORDERED: TUSSIONEX PO PRN (10:49)
[2019-12-26] MEDS ORDERED: PHARMACY COMMUNICATION ORDER MC NR (11:15)
[2019-12-26] MEDS ORDERED: DIAZEPAM INJ 10 MG/2 ML DISP.SYRIN IV PRN (11:21)
[2019-12-26] MEDS: LEVALBUTEROL HCL NEB 0.63 MG/3 ML AMPUL NEB PRN ×3 (11:58→18:39)
[2019-12-26 12:36] LABS: FREE T3 2.77 pg/mL (2.77-5.27); FREE T4 (FREE THYROXINE) 1.01 ng/dL (0.78-2.19)
[2019-12-26] MEDS: BUPRENORPHINE HCL 2 MG SUBLINGUAL TABLET SL SCH ×2 (12:53→21:38)
[2019-12-26 13:09] LABS: TROPONIN I < 0.012 ng/mL
[2019-12-26] MEDS: NYSTATIN CREAM 15 GM TP SCH (18:08)
--- NOTE | 2019-12-26 18:09 | XCELERA REPORT ---
[address] [address] Transthoracic Echocardiogram Report Name: DYLAN SWARTZ Age: 59 yrs Gender: Female : 1960 Patient Status: Inpatient Patient Location: [address] [place] [address] Study Date: 12/26/2019 01:35 PM Height: 61 in Weight: 220 lb BSA: 2.0 m2 Procedure: A complete two-dimensional transthoracic echocardiogram was performed (2D, M-mode, spectral and color flow Doppler). The study was technically adequate with some images being suboptimal in quality. Reason For Study: chf Ordering Physician: OSCAR KERN Performed By: Vannesa Wolf Interpretation Summary LEFT VENTRICLE: LV Systolic function: LVEF is felt to be within normal limits. Best estimate is approximately LVEF is 60 %. LV Diastolic Function: Grade II diastolic dysfunction noted. Wall motion : No significant wall motion abnormalities are noted.. Left ventricular chamber size : is within normal limit. Left ventricular wall thickness : is increased indicative of Mild LVH. INTERVENTRICULAR SEPTUM: no evidence of VSD noted. No asymmetric hypertrophy noted. RIGHT VENTRICLE: RV systolic function : is felt to be mildly dilated. Right Ventricle Size : Moderately enlarged. LEFT ATRIUM size : mildly dilated. RIGHT ATRIUM size : Moderate to severely dilated. INTER ATRIAL SEPTUM : Interatrial septum markedly shifted to the left suggestive of significantly increased right atrial pressure. Small PFO could be missed. AORTIC ROOT : seems to be within normal limits. Ascending aorta is not well visualized. INFERIOR VENA CAVA: was not well visualized. VALVES: MITRAL VALVE : Leaflets are mildly thickened. Mobility seems to be within normal limits. Mitral Regurgitation : Mild mitral regurgitation is noted. Mitral Stenosis: No mitral stenosis noted. Mitral valve prolapse : none noted. AORTIC VALVE: seems to be trileaflet with thickening but adequate excursion. Aortic stenosis : No aortic stenosis noted. Aortic regurgitation : No aortic incompetence noted. TRICUSPID VALVE : mobility and structures within normal limit. Tricuspid stenosis : no tricuspid stenosis noted. Tricuspid regurgitation : Moderate tricuspid regurgitation noted. Estimated RVSP : Approximately 50-60 mmHg consistent with moderate pulmonary hypertension. PULMONARY VALVE : was not well visualized but no significant abnormalities suspected. Pulmonary stenosis : no significant pulmonary stenosis noted. Pulmonary regurgitation : no significant pulmonary regurgitation noted. MASSES AND THROMBUS : No definite intracardiac thrombus or masses are noted. PERICARDIUM: No pericardial effusion was noted. IMPRESSION : 1. Normal LVEF. RVEF seems mildly depressed. 2. Mild LVH noted. 3. Grade II Diastolic Dysfunction noted. 4. RV is moderately dilated. RA is moderate to severely dilated. 5. Mild mitral, moderate tricuspid regurgitation noted. 6. Moderate pulmonary hypertension noted with estimated RVSP as between 50 to 60 mmHg. MMode/2D Measurements & Calculations RVDd: 2.9 cm LVIDd: 4.2 cm FS: 27.3 % Ao root diam: 2.5 cm IVSd: 0.84 cm LVIDs: 3.1 cm EDV(Teich): Ao root area: 80.5 ml LVPWd: 0.90 cm 4.9 cm2 ESV(Teich): 37.4 ml EF(Teich): 53.5 % EDV(MOD-sp4): SV(MOD-sp4): 73.0 ml 35.9 ml ESV(MOD-sp4): 37.1 ml EF(MOD-sp4): 49.1 % Doppler Measurements & Calculations MV E max bebeto: MV dec slope: Ao V2 max: LV V1 max P.0 cm/sec 140.8 cm/sec 3.2 mmHg MV A max bebeto: 567.4 cm/sec2 Ao max PG: LV V1 mean P.6 cm/sec MV dec time: 0.16 sec7.9 mmHg 1.8 mmHg MV E/A: 0.65 Ao V2 mean: LV V1 max: 101.8 cm/sec 89.7 cm/sec Ao mean PG: LV V1 mean: 4.7 mmHg 62.7 cm/sec Ao V2 VTI: 26.0 cm LV V1 VTI: 16.2 cm MR max bebeto: PA V2 max: TR max bebeto: 440.5 cm/sec 80.5 cm/sec 309.8 cm/sec MR max P.6 mmHgPA max P.6 mmHg TR max P.4 mmHg : OSCAR KERN Shyamal
--- NOTE | 2019-12-26 19:24 | PDOC PROGRESS REPORT ---
Subjective Progress Note for:: 12/26/19 Subjective:: She is a 51-year-old female with past medical history of hypertension, asthma, COPD, chronic respiratory failure (on home O2 at 2 L/min), obesity, lung cancer, arthritis, gout, depression, tobacco dependency, and opiate dependent chronic pain who was admitted 12/25/2019 for acute on chronic respiratory failure with hypoxia secondary to CHF exacerbation. Patient was seen on morning rounds. She is found resting in bed, comfortably, on supplemental oxygen by nasal cannula. She was sleeping but woke easily when I said her name. She does have a wet sounding, nonproductive cough and continued shortness of breath. She was found to have her narcotic prescriptions in the bed with her (Subutex and Hycodan cough syrup); she did become somewhat agitated when he took these and explained that they would be locked in the Pyxis and return to her upon discharge and in the interim she would be provided appropriate pain medications by nursing. She had no other concerns or questions at this time. She denies fever, chills, chest pain, palpitation, orthopnea, abdominal pain, nausea vomiting and diarrhea. Plan of care discussed with nursing. Reason For Visit: ACUTE ON CHRONIC RESPIRATORY FAILURE WITH HYPOXIA Physical Exam Vital Signs: Temp Pulse Resp BP Pulse Ox 97.3 F 66 18 91/65 L 93 12/26/19 11:08 12/26/19 18:39 12/26/19 18:39 12/26/19 11:08 12/26/19 15:46 Intake & Output 12/25/19 12/26/19 12/27/19 06:59 06:59 06:59 Intake Total 400 Balance 400 Weight 102.9 kg 99.9 kg Results Laboratory Results: 12/26/19 06:56 12/26/19 06:56 12/25/19 12/25/19 12/25/19 19:04 19:04 22:30 WBC 5.1 RBC 3.31 L Hgb 10.3 L Hct 31.0 L MCV 94 MCH 31.2 MCHC 33.3 RDW 18.4 H Plt Count 119 L Seg Neutrophils % Not Reportable Sodium 133.5 L Potassium 4.3 Chloride 97 L Carbon Dioxide 26 Anion Gap 11 BUN 8 Creatinine 0.63 Est GFR ( Amer) > 60 Glucose 77 Calcium 8.7 Magnesium Total Bilirubin 0.5 AST 31 Alkaline Phosphatase 158 H Total Protein 7.4 Albumin 3.2 L Triglycerides Cholesterol LDL Cholesterol Direct VLDL Cholesterol HDL Cholesterol TSH Free T4 Free T3 pg/mL Urine Color YELLOW Urine Appearance CLEAR Urine pH 5.0 Ur Specific [place] 1.010 Urine Protein NEGATIVE Urine Glucose (UA) NEGATIVE Urine Ketones NEGATIVE Urine Blood NEGATIVE Urine Nitrite NEGATIVE Ur Leukocyte Esterase NEGATIVE Urine WBC (Auto) 0 12/26/19 12/26/19 12/26/19 06:56 06:56 06:56 WBC 3.6 L RBC 3.25 L Hgb 10.1 L Hct 30.1 L MCV 93 MCH 31.1 MCHC 33.6 RDW 18.4 H Plt Count 112 L Seg Neutrophils % Not Reportable Sodium 136.1 L Potassium 3.7 Chloride 96 L Carbon Dioxide 33 H Anion Gap 7 BUN 7 Creatinine 0.64 Est GFR ( Amer) > 60 Glucose 87 Calcium 8.6 Magnesium 1.2 L* Total Bilirubin AST Alkaline Phosphatase Total Protein Albumin Triglycerides 78 Cholesterol 103.29 LDL Cholesterol Direct 33 VLDL Cholesterol 16.0 HDL Cholesterol 49 TSH 9.82 H Free T4 Free T3 pg/mL Urine Color Urine Appearance Urine pH Ur Specific [place] Urine Protein Urine Glucose (UA) Urine Ketones Urine Blood Urine Nitrite Ur Leukocyte Esterase Urine WBC (Auto) 12/26/19 06:56 WBC RBC Hgb Hct MCV MCH MCHC RDW Plt Count Seg Neutrophils % Sodium Potassium Chloride Carbon Dioxide Anion Gap BUN Creatinine Est GFR ( Amer) Glucose Calcium Magnesium Total Bilirubin AST Alkaline Phosphatase Total Protein Albumin Triglycerides Cholesterol LDL Cholesterol Direct VLDL Cholesterol HDL Cholesterol TSH Free T4 1.01 Free T3 pg/mL 2.77 Urine Color Urine Appearance Urine pH Ur Specific [place] Urine Protein Urine Glucose (UA) Urine Ketones Urine Blood Urine Nitrite Ur Leukocyte Esterase Urine WBC (Auto) 12/25/19 12/25/19 12/26/19 19:04 19:04 00:51 Creatine Kinase 57 CK-MB (CK-2) Troponin I 0.012 NT-Pro-B Natriuret Pep 1840 H 12/26/19 12/26/19 12/26/19 00:51 06:56 06:56 Creatine Kinase 49 CK-MB (CK-2) 1.47 1.29 Troponin I < 0.012 < 0.012 NT-Pro-B Natriuret Pep 12/26/19 12/26/19 12:26 12:26 Creatine Kinase 47 CK-MB (CK-2) 1.30 Troponin I < 0.012 NT-Pro-B Natriuret Pep Impressions: Chest X-Ray 12/25/19 18:43 IMPRESSION: Severe rounded contour of the heart has increased significantly since 09/10/2019, possibly representing a moderate to large pericardial effusion. Echocardiogram may provide additional information. No acute consolidation. Venous Doppler Study 12/25/19 20:14 IMPRESSION: No DVT is identified. TECHNIQUE: LIMITATIONS: None. FINDINGS: IMPRESSION: copyright 2010 [employer]- All Rights Reserved Assessment and Plan - Diagnosis (1) Acute congestive heart failure Qualifiers: Heart failure type: diastolic Qualified Code(s): I50.31 - Acute diastolic (congestive) heart failure Is this a current diagnosis for this admission?: Yes Plan: Echocardiogram revealed LVEF 60% with grade 2 diastolic dysfunction, mild LVH, severely dilated right atrium, mildly dilatated right ventricle, right ventricle. Moderate tricuspid regurgitation. Moderate pulmonary hypertension. proBNP elevated 1840 CXR noted to have severe large amount of the heart CTA Chest pending; recommend by cardiology (Dr. Munoz) following echo results. Patient is admitted to the medical floor on continuous cardiac telemetry. She is provided IV furosemide 20 mg every 6 hours for diuresis. Continue daily Plavix. It appears that patient is not on hypertensives at home; consider start of Beta maggy and AMARI/ARB prior to discharge. Cardiac diet. Daily weights, strict I&Os (2) Acute on chronic respiratory failure with hypoxia Is this a current diagnosis for this admission?: Yes Plan: Multifactorial secondary to CHF exacerbation, likely COPD (although patient denies formal prior diagnosis), and in the setting of lung CA. CTA chest pending Diuresis mentioned above. Provide supplemental oxygen as needed to maintain oxygen saturations greater than 89%. Encourage BiPAP use; patient currently refusing. Scheduled and as needed nebulizer treatments. (3) Ulcer of right foot with fat layer exposed Is this a current diagnosis for this admission?: Yes Plan: Status post bedside debridement by Dr. Russell. Wound care per surgery's recommendations. They have signed off. No indications for antibiotic therapy at this time. (4) Chronic venous insufficiency of lower extremity Is this a current diagnosis for this admission?: Yes Plan: Venous Doppler studies negative for DVT bilaterally. JOSELINE mendez and angelina. (5) Tobacco abuse Is this a current diagnosis for this admission?: Yes Plan: Smoking cessation encouraged. Nicotine replacement therapies provided (6) Alcohol dependency Qualifiers: Is this a current diagnosis for this admission?: Yes Plan: Patient has history of heavy EtOH use/dependence. Daily folic acid, thiamine, multivitamin supplementation. CIWA every 4 hours with Ativan as needed Cessation encouraged. (7) Chronic back pain Qualifiers: Back pain location: back pain in unspecified location Back pain laterality: unspecified Qualified Code(s): M54.9 - Dorsalgia, unspecified; G89.29 - Other chronic pain Is this a current diagnosis for this admission?: Yes Plan: Continues patient's home medication regiment; Subutex 8 mg sublingual twice daily. Tylenol as needed. Nonpharmacological interventions. (8) Morbid obesity Is this a current diagnosis for this admission?: Yes Plan: Lifestyle modification dietary discretion advised. Patient currently on cardiac diet. (9) Lung cancer Qualifiers: Laterality: unspecified laterality Lung location: unspecified part of lung Qualified Code(s): C34.90 - Malignant neoplasm of unspecified part of unspecified bronchus or lung Is this a current diagnosis for this admission?: Yes Plan: Not currently receiving treatment. Previously followed by Dr. Farah; will discuss with patient who her current oncologist is. Consider heme-onc consultation. - Time Time Spent with patient: 35 or more minutes Medications reviewed and adjusted accordingly: Yes Anticipated Discharge Disposition: Home with Home Health Anticipated Discharge Timeframe: undetermined
[2019-12-26] MEDS: IPRATROPIUM/ALBUTEROL 0.5-2.5 MG/3 ML AMPUL NEB SCH (20:02)
[2019-12-26] MEDS ORDERED: MORPHINE SULFATE 10 MG/ML INJ IV PRN ×3 (21:08→21:13)
[2019-12-27] MEDS: IPRATROPIUM/ALBUTEROL 0.5-2.5 MG/3 ML AMPUL NEB SCH ×4 (02:29→19:40)
[2019-12-27] MEDS: ACETAMINOPHEN 325 MG TABLET PO PRN ×3 (02:51→17:53)
[2019-12-27 06:25] LABS: ABSOLUTE EOSINOPHILS # (AUTO) 0.1 10^3/uL (0.0-0.6); ABSOLUTE LYMPHOCYTES (AUTO) 0.6 10^3/uL (0.5-4.7); ABSOLUTE MONOCYTES (AUTO) 0.6 10^3/uL (0.1-1.4); ABSOLUTE NEUT (AUTO) 3.9 10^3/uL (1.7-8.2); BASOPHILS % (AUTO) 0.3 % (0-2); EOSINOPHILS % (AUTO) 1.1 % (0-6); HEMATOCRIT 28.4 % (36.0-47.0); HEMOGLOBIN 9.5 g/dL (12.0-15.5); LYMPHOCYTES % (AUTO) 11.7 % (13-45); MEAN CORPUSCULAR HEMOGLOBIN 31.1 pg (27.0-33.4); MEAN CORPUSCULAR HGB CONC 33.5 g/dL (32.0-36.0); MEAN CORPUSCULAR VOLUME 93 fl (80-97); MONOCYTES % (AUTO) 11.1 % (3-13); PLATELET COUNT 113 10^3/uL (150-450); RED BLOOD COUNT 3.06 10^6/uL (3.72-5.28); RED CELL DISTRIBUTION WIDTH 18.6 % (11.5-14.0); SEGMENTED NEUTROPHILS % (AUTO) 75.8 % (42-78); TOTAL CELLS COUNTED % (AUTO) 100 %; WHITE BLOOD COUNT 5.1 10^3/uL (4.0-10.5)
[2019-12-27 06:38] LABS: ARTERIAL BLOOD BASE EXCESS 10.2 mmol/L; ARTERIAL BLOOD H2CO3 1.78 mmol/L (1.05-1.35); ARTERIAL BLOOD HCO3 36.5 mmol/L (20-24); ARTERIAL BLOOD O2 SATURATION 94.9 % (94-98); ARTERIAL BLOOD PCO2 59.1 mmHg (35-45); ARTERIAL BLOOD PH 7.41 (7.35-7.45); ARTERIAL BLOOD PO2 75.6 mmHg (80-100); ARTERIAL BLOOD TOTAL CO2 38.3 mmol/L (21-25)
[2019-12-27 06:39] LABS: ARTERIAL BLOOD FIO2 28
[2019-12-27] MEDS: PANTOPRAZOLE SODIUM 40 MG TABLET.DR PO SCH (06:47)
[2019-12-27] MEDS: FUROSEMIDE INJ/PF 20 MG/2 ML SDV IV SCH ×4 (06:47→21:19)
[2019-12-27] MEDS: HEPARIN SOD (PORCINE) 5,000 UNIT/ML 1 ML VIAL SUBCUT SCH ×3 (06:47→21:19)
[2019-12-27 07:00] LABS: ANION GAP 6 (5-19); BLOOD UREA NITROGEN 7 mg/dL (7-20); CALCIUM 8.2 mg/dL (8.4-10.2); CARBON DIOXIDE 35 mmol/L (22-30); CHLORIDE 95 mmol/L (98-107); GLUCOSE 85 mg/dL (75-110)
[2019-12-27] MEDS: POTASSIUM CHLORIDE 10 MEQ TABLET.ER PO SCH ×3 (08:49→17:38)
[2019-12-27] MEDS ORDERED: MULTIVITAMINS W-IRON TABLET, CHEWABLE PO SCH (10:00)
[2019-12-27] MEDS: BUPRENORPHINE HCL 2 MG SUBLINGUAL TABLET SL SCH ×2 (11:49→21:18)
[2019-12-27] MEDS: MULTIVITAMIN TABLET PO SCH (11:50)
[2019-12-27] MEDS: FOLIC ACID 1 MG TABLET PO SCH (11:51)
[2019-12-27] MEDS: THIAMINE HCL 100 MG TABLET PO SCH (11:52)
[2019-12-27] MEDS: DOCUSATE SODIUM 100 MG CAPSULE PO SCH (11:52)
[2019-12-27] MEDS: CLOPIDOGREL BISULFATE 75 MG TABLET PO SCH (11:52)
[2019-12-27] MEDS: FLUTICASONE/UMECLIDIN/VILANTER 100-62.5-25 MCG/DOSE IH SCH (11:53)
[2019-12-27] MEDS: NYSTATIN CREAM 15 GM TP SCH ×2 (11:53→17:39)
--- NOTE | 2019-12-27 17:07 | RADIOLOGY REPORT (SQ) ---
EXAM DESCRIPTION: CTA CHEST IMAGES COMPLETED DATE/TIME: 12/27/2019 4:16 pm REASON FOR STUDY: dyspnea, hypoxia, elevated RA/RV pressure COMPARISON: 01/30/2019 TECHNIQUE: CT scan of the chest performed using helical scanning technique with dynamic intravenous contrast injection. Images reviewed with lung, soft tissue and bone windows. Reconstructed coronal and sagittal MPR images reviewed. Additional 3 dimensional post-processing performed to develop Maximal Intensity Projection images (VT P). All images stored on PACS. All CT scanners at this facility use dose modulation, iterative reconstruction, and/or weight based d osing when appropriate to reduce radiation dose to as low as reasonably achievable (ALARA). [facility]: Dose Right [facility]: CareDose [facility]: Dose Right [facility]: Teradose 4D [facility]: paymio CONTRAST TYPE AND DOSE: contrast/concentration: Isovue 350.00 mmol/ml; Total Contrast Delivered: 75. 0 ml; Total Saline Delivered: 75.0 ml Contrast bolus adequate for pulmonary arteries and aorta. RENAL FUNCTION: BUN 7 creatinine 0.54 RADIATION DOSE: CT Rad equipment meets quality standard of care and radiation dose reduction techniq ues were employed. CTDIvol: 6.6 - 23.4 mGy. DLP: 822 mGy-cm. . LIMITATIONS: None. FINDINGS: LUNGS AND PLEURA: Right perihilar nodule measures 16.5 mm compared to 15.[address]y. Centrilobular emphysema is present in the upper lobes. There is mild ground-glass opacificatio n in both lungs. Pulmonary vascular congestion is present. Right upper lobe pulmonary nodule measur es 7.8 mm compared to 5.1 mm on the prior study. Smaller pulmonary nodules described on the prior st udy are not well seen currently. Dependent atelectasis in the lower lobes. AORTA AND GREAT VESSELS: No aneurysm. No dissection. HEART: Cardiomegaly. Small pericardial effusion. Moderate to marked coronary artery calcifications. PULMONARY ARTERIES: No emboli visualized in the main pulmonary arteries or the segmental branches. HILAR AND MEDIASTINAL STRUCTURES: Mild hilar adenopathy. Stable. Stable right pretracheal node. HARDWARE: None in the chest. UPPER ABDOMEN: No significant findings. Limited exam. THYROID AND OTHER SOFT TISSUES: No masses. No adenopathy. BONES: No acute or significant finding. 3D MIPS: Confirm above findings. OTHER: No other significant finding. IMPRESSION: 1. There are no pulmonary emboli. There is no aortic aneurysm or dissection. 2. Cardiomegaly with mild pulmonary edema superimposed upon emphysematous changes. 3. The 2 larger right pulmonary nodules have increased in size slightly. Cannot exclude neoplasm. COMMENT: Quality ID # [id number]: Final reports with documentation of one or more dose reduction techniques (e.g., Automated exposure control, adjustment of the mA and/or kV according to patient size, use of iterative reconstruction technique) TECHNICAL DOCUMENTATION: JOB ID: [id number] 2010 [employer]- All Rights Reserved Reading location - IP/workstation name: [email or web address]
--- NOTE | 2019-12-27 18:33 | PDOC PROGRESS REPORT ---
Subjective Progress Note for:: 12/27/19 Subjective:: She is a 51-year-old female with past medical history of hypertension, asthma, COPD, chronic respiratory failure (on home O2 at 2 L/min), obesity, lung cancer, arthritis, gout, depression, tobacco dependency, and opiate dependent chronic pain who was admitted 12/25/2019 for acute on chronic respiratory failure with hypoxia secondary to CHF exacerbation. Patient was seen on morning rounds. She is found resting in bed, comfortably, on supplemental oxygen by nasal cannula. She was sleeping but woke easily when I said her name. Did use BiPap for 4-6 hours overnight. Continues to have a wet sounding, nonproductive cough. Reports dyspnea is slightly improved. Discussed need for CTA Chest; patient agreeable. Otherwise, states she is tired and wants to sleep. She had no other concerns or questions at this time. She denies fever, chills, chest pain, palpitation, orthopnea, abdominal pain, nausea vomiting and diarrhea. Reports foot discomfort; though adequately controlled at present. No concerns per nursing. Reason For Visit: ACUTE ON CHRONIC RESPIRATORY FAILURE WITH HYPOXIA Physical Exam Vital Signs: Temp Pulse Resp BP Pulse Ox 96.3 F L 95 20 91/60 L 93 12/27/19 12:25 12/27/19 14:20 12/27/19 14:20 12/27/19 12:25 12/27/19 08:20 Intake & Output 12/26/19 12/27/19 12/28/19 06:59 06:59 06:59 Intake Total 400 Output Total 3325 Balance -2925 Weight 102.9 kg 88.6 kg General appearance: PRESENT: no acute distress, disheveled, obese, well- developed, well-nourished Head exam: PRESENT: atraumatic, normocephalic Eye exam: PRESENT: conjunctiva pink, EOMI, PERRLA. ABSENT: scleral icterus Mouth exam: PRESENT: moist, tongue midline Teeth exam: PRESENT: poor dentation Respiratory exam: PRESENT: prolonged expiratory phas, rhonchi, symmetrical, unlabored, other - supplemental oxygen via NC. ABSENT: rales, wheezes Cardiovascular exam: PRESENT: RRR. ABSENT: diastolic murmur, rubs, systolic murmur Vascular exam: PRESENT: normal capillary refill Extremities exam: PRESENT: full ROM, +1 edema - pitting, BLE. Periorbital and BUE edema has resolved.. ABSENT: calf tenderness, clubbing, pedal edema Neurological exam: PRESENT: alert, awake, oriented to person, oriented to place, oriented to time, oriented to situation, CN II-XII grossly intact, other - lethargic. ABSENT: motor sensory deficit Psychiatric exam: PRESENT: appropriate affect, normal mood. ABSENT: homicidal ideation, suicidal ideation Skin exam: PRESENT: dry, warm. ABSENT: cyanosis, rash Results Laboratory Results: 12/27/19 05:40 12/27/19 05:40 12/27/19 12/27/19 12/27/19 05:40 05:40 06:15 WBC 5.1 RBC 3.06 L Hgb 9.5 L Hct 28.4 L MCV 93 MCH 31.1 MCHC 33.5 RDW 18.6 H Plt Count 113 L Seg Neutrophils % 75.8 Carbonic Acid 1.78 H HCO3/H2CO3 Ratio 20:1 ABG pH 7.41 ABG pCO2 59.1 H ABG pO2 75.6 L ABG HCO3 36.5 H ABG O2 Saturation 94.9 ABG Base Excess 10.2 FiO2 28 Sodium 135.9 L Potassium 4.0 Chloride 95 L Carbon Dioxide 35 H Anion Gap 6 BUN 7 Creatinine 0.54 Est GFR ( Amer) > 60 Glucose 85 Calcium 8.2 L 12/25/19 12/25/19 12/26/19 19:04 19:04 00:51 Creatine Kinase 57 CK-MB (CK-2) Troponin I 0.012 NT-Pro-B Natriuret Pep 1840 H 12/26/19 12/26/19 12/26/19 00:51 06:56 06:56 Creatine Kinase 49 CK-MB (CK-2) 1.47 1.29 Troponin I < 0.012 < 0.012 NT-Pro-B Natriuret Pep 12/26/19 12/26/19 12/27/19 12:26 12:26 05:40 Creatine Kinase 47 CK-MB (CK-2) 1.30 Troponin I < 0.012 NT-Pro-B Natriuret Pep 1180 H Impressions: Chest X-Ray 12/25/19 18:43 IMPRESSION: Severe rounded contour of the heart has increased significantly since 09/10/2019, possibly representing a moderate to large pericardial effusion. Echocardiogram may provide additional information. No acute consolidation. Venous Doppler Study 12/25/19 20:14 IMPRESSION: No DVT is identified. TECHNIQUE: LIMITATIONS: None. FINDINGS: IMPRESSION: copyright 2011 [employer]- All Rights Reserved Chest/Abdomen CTA 12/27/19 00:00 IMPRESSION: 1. There are no pulmonary emboli. There is no aortic aneurysm or dissection. 2. Cardiomegaly with mild pulmonary edema superimposed upon emphysematous changes. 3. The 2 larger right pulmonary nodules have increased in size slightly. Cannot exclude neoplasm. Assessment and Plan - Diagnosis (1) Acute congestive heart failure Qualifiers: Heart failure type: diastolic Qualified Code(s): I50.31 - Acute diastolic (congestive) heart failure Is this a current diagnosis for this admission?: Yes Plan: Echocardiogram revealed LVEF 60% with grade 2 diastolic dysfunction, mild LVH, severely dilated right atrium, mildly dilatated right ventricle, right ventricle. Moderate tricuspid regurgitation. Moderate pulmonary hypertension. proBNP elevated 1840 CXR noted to have severe large amount of the heart CTA Chest was negative for PE; notes mild pulmonary edema in setting of emphysema Weight down 4 kg; -2.9 L fluid balance. Patient is admitted to the medical floor on continuous cardiac telemetry. She is provided IV furosemide for diuresis. Continue daily Plavix. It appears that patient is not on hypertensives at home; consider start of Beta maggy and AMARI/ARB prior to discharge. Cardiac diet. Fluid restricted 2L daily. Daily weights, strict I&Os Patient educator consulted. (2) Acute on chronic respiratory failure with hypoxia Is this a current diagnosis for this admission?: Yes Plan: Multifactorial secondary to CHF exacerbation and COPD in the setting of lung CA. CTA chest noted mild pulmonary edema. Diuresis mentioned above. Provide supplemental oxygen as needed to maintain oxygen saturations greater than 89%. Encourage BiPAP use Scheduled and as needed nebulizer treatments. (3) Emphysema lung Qualifiers: Emphysema type: unspecified Qualified Code(s): J43.9 - Emphysema, unspec ified Is this a current diagnosis for this admission?: Yes Plan: Supplemental oxygen BiPAP as needed to maintain saturations greater than 89%. Continue scheduled and as needed nebulizer treatments. Start Mucinex twice daily. Consider steroid therapy. Incentive spirometry and flutter valve to bedside. Encourage ambulation and out of bed 3 times daily. (4) Ulcer of right foot with fat layer exposed Is this a current diagnosis for this admission?: Yes Plan: Status post bedside debridement by Dr. Russell. Wound care per surgery's recommendations. They have signed off. No indications for antibiotic therapy at this time. (5) Chronic venous insufficiency of lower extremity Is this a current diagnosis for this admission?: Yes Plan: Venous Doppler studies negative for DVT bilaterally. JOSELINE hose and elevation. (6) Tobacco abuse Is this a current diagnosis for this admission?: Yes Plan: Smoking cessation encouraged. Nicotine replacement therapies provided (7) Alcohol dependency Qualifiers: Is this a current diagnosis for this admission?: Yes Plan: Patient has history of heavy EtOH use/dependence. Daily folic acid, thiamine, multivitamin supplementation. CIWA every 4 hours with Ativan as needed Cessation encouraged. (8) Chronic back pain Qualifiers: Back pain location: back pain in unspecified location Back pain laterality: unspecified Qualified Code(s): M54.9 - Dorsalgia, unspecified; G89.29 - Other chronic pain Is this a current diagnosis for this admission?: Yes Plan: Continues patient's home medication regiment; Subutex 8 mg sublingual twice daily. Tylenol as needed. Nonpharmacological interventions. (9) Morbid obesity Is this a current diagnosis for this admission?: Yes Plan: Lifestyle modification dietary discretion advised. Patient currently on cardiac diet. (10) Lung cancer Qualifiers: Laterality: unspecified laterality Lung location: unspecified part of lung Qualified Code(s): C34.90 - Malignant neoplasm of unspecified part of unspecified bronchus or lung Is this a current diagnosis for this admission?: Yes Plan: Not currently receiving treatment. Previously followed by Dr. Farah; will discuss with patient who her current oncologist is. Consider heme-onc consultation. - Time Time Spent with patient: 25-34 minutes Medications reviewed and adjusted accordingly: Yes Anticipated Discharge Disposition: Home with Home Health Anticipated Discharge Timeframe: within 72 hours
[2019-12-27] MEDS: GUAIFENESIN 600 MG TABLET.SA PO SCH (21:20)
[2019-12-28] MEDS: IPRATROPIUM/ALBUTEROL 0.5-2.5 MG/3 ML AMPUL NEB SCH ×4 (02:20→19:41)
[2019-12-28] MEDS: PANTOPRAZOLE SODIUM 40 MG TABLET.DR PO SCH (05:14)
[2019-12-28] MEDS: HEPARIN SOD (PORCINE) 5,000 UNIT/ML 1 ML VIAL SUBCUT SCH ×3 (05:15→21:35)
[2019-12-28] MEDS: FUROSEMIDE INJ/PF 20 MG/2 ML SDV IV SCH (05:18)
[2019-12-28 05:19] LABS: HEMATOCRIT 28.5 % (36.0-47.0); HEMOGLOBIN 9.7 g/dL (12.0-15.5); MEAN CORPUSCULAR HEMOGLOBIN 31.4 pg (27.0-33.4); MEAN CORPUSCULAR HGB CONC 34.1 g/dL (32.0-36.0); MEAN CORPUSCULAR VOLUME 92 fl (80-97); PLATELET COUNT 130 10^3/uL (150-450); RED CELL DISTRIBUTION WIDTH 19.1 % (11.5-14.0); WHITE BLOOD COUNT 4.2 10^3/uL (4.0-10.5)
[2019-12-28] MEDS: ACETAMINOPHEN 325 MG TABLET PO PRN ×2 (05:19→11:43)
[2019-12-28 05:50] LABS: BLOOD UREA NITROGEN 8 mg/dL (7-20); CALCIUM 7.9 mg/dL (8.4-10.2); CHLORIDE 90 mmol/L (98-107); GLUCOSE 89 mg/dL (75-110); POTASSIUM 4.1 mmol/L (3.6-5.0)
[2019-12-28 05:59] LABS: ANION GAP 3 (5-19)
[2019-12-28 06:00] LABS: CARBON DIOXIDE 42 mmol/L (22-30)
[2019-12-28] MEDS: POTASSIUM CHLORIDE 10 MEQ TABLET.ER PO SCH ×3 (08:34→18:38)
[2019-12-28] MEDS: FOLIC ACID 1 MG TABLET PO SCH (10:21)
[2019-12-28] MEDS: DOCUSATE SODIUM 100 MG CAPSULE PO SCH (10:21)
[2019-12-28] MEDS: CLOPIDOGREL BISULFATE 75 MG TABLET PO SCH (10:21)
[2019-12-28] MEDS: THIAMINE HCL 100 MG TABLET PO SCH (10:21)
[2019-12-28] MEDS: MULTIVITAMIN TABLET PO SCH (10:21)
[2019-12-28] MEDS: BUPRENORPHINE HCL 2 MG SUBLINGUAL TABLET SL SCH ×2 (10:21→21:34)
[2019-12-28] MEDS: GUAIFENESIN 600 MG TABLET.SA PO SCH ×2 (10:21→21:35)
[2019-12-28] MEDS: NYSTATIN CREAM 15 GM TP SCH ×2 (10:22→18:39)
[2019-12-28] MEDS: FLUTICASONE/UMECLIDIN/VILANTER 100-62.5-25 MCG/DOSE IH SCH (10:26)
--- NOTE | 2019-12-28 13:01 | PDOC CONSULTATION ---
Consultation Consult Date: 12/28/19 Attending physician:: WANDY CHARLTON Provider Consulted: GALA FINNEY Consult reason:: Patient with known history of stage III lung cancer History of Present Illness Admission Date/PCP: 12/25/19 22:00 GALA FINNEY MD Patient complains of: Shortness of breath, dyspnea on exertion History of Present Illness: DYLAN SWARTZ is a 59 year old female well-known to our oncology clinic with history of stage III lung cancer, she was treated previously by Dr. Farah and transferred to our clinic once her clinic was closed about a year ago. We had initiated her on immunotherapy, and stop the immunotherapy now about 12 weeks ago because of worsening shortness of breath. Since then she has been in the hospital several times, recently she had restaging imaging done at Dr. Nuñez's imaging center. And I received a call from Dr. Nuñez noting that the lung lesions were stable but there was generalized fluid all throughout the images including pleural effusion, cardiomegaly, pulmonary edema as well as mild ascites. She does have history of heart failure, we called her at home and she was short of breath, having increased oxygen needs so we recommended that she come to the ER. Here she was admitted and has been on treatment for heart failure. She had CT of the chest and there was some comment of the nodules in the lung related to the cancer looking larger but it was compared to imaging don e about a year ago here. Because her imaging was done at a different center, this is not remarkable. Past Medical History Cardiac Medical History: Reports: Hypertension Denies: Atrial Fibrillation, Congestive Heart Failure, Coronary Artery Disease, DVT, Myocardial Infarction, Hyperlipidema, Pulmonary Embolism Pulmonary Medical History: Reports: Asthma, Bronchitis, Chronic Obstructive Pulmonary Disease (COPD), Pneumonia, Respiratory Failure - Chronic on home O2, Sleep Apnea EENT Medical History: Denies: Cataracts, Ears - Hearing aids Neurological Medical History: Denies: Hemorrhagic CVA, Ischemic CVA, Seizures Endocrine Medical History: Reports: Obesity Denies: Diabetes Mellitus Type 1, Diabetes Mellitus Type 2, Hyperthyroidism, Hypothyroidism Renal/ Medical History: Denies: Chronic Kidney Disease, Nephrolithiasis Malignancy Medical History: Reports: Lung Cancer GI Medical History: Reports: Gastroesophageal Reflux Disease Denies: Cirrhosis, Hepatitis, Peptic Ulcer Disease Musculoskeltal Medical History: Reports: Arthritis, Gout Denies: Fibromyalgia Skin Medical History: Denies: Eczema, Psoriasis Psychiatric Medical History: Reports: Depression, Tobacco Dependency Denies: Alcohol Dependency, Substance Abuse Traumatic Medical History: Reports: None Hematology: Reports: Anemia Denies: Bleeding Tendencies Infectious Medical History: Reports: None Past Surgical History Past Surgical History: Reports: Tubal Ligation, Other - Unilateral salpingectomy, colonoscopy Social History Information Source: Patient Lives with: Spouse/Significant other Smoking Status: Current Every Day Smoker Cigarettes Packs Per Day: 1 Electronic Cigarette use?: No Number of Years Smokin Last Time Smoked: t-1 Frequency of Alcohol Use: Heavy Hx Recreational Drug Use: Yes - Remote past, no current use Drugs: None Hx Prescription Drug Abuse: No - Advance Directive Resuscitation Status: Full Code Family History Family History: CAD, Malignancy Parental Family History Reviewed: Yes Children Family History Reviewed: Yes Sibling(s) Family History Reviewed.: Yes Medication/Allergy Home Medications: Albuterol Sulfate [Albuterol Sulfate Hfa] 1 puff IH Q6HP PRN 09/04/19 Fluticasone/Umeclidin/Vilanter [Trelegy 100-62.5-25 Mcg Ellipta 14 Dose/Dpi] 1 puff IH DAILY 09/04/19 Hydrocortisone [Hydrocortisone 2.5% Cream 28 gm (Clinic Use)] 1 applic TOP BID 09/04/19 Pantoprazole Sodium [Protonix [address] Tablet] 40 mg PO DAILY 09/04/19 Tussionex 5 ml PO Q12HP PRN 09/04/19 Nystatin [Mycostatin Cream 15 gm] 1 applic TP BID 7 Days #1 tube 11/22/19 Hydroxyzine Pamoate [Vistaril 50 mg Capsule] 50 mg PO DAILY 12/26/19 Allergies/Adverse Reactions: aspirin [Aspirin] Allergy (Verified 10/06/18 17:54) NSAIDS (Non-Steroidal Anti-Inflamma [Nsaids] Allergy (Verified 10/06/18 17:54) Penicillins Allergy (Verified 10/06/18 17:54) Review of Systems Constitutional: ABSENT: chills, fever(s), headache(s), weight gain, weight loss Eyes: ABSENT: visual disturbances Ears: ABSENT: hearing changes Cardiovascular: ABSENT: chest pain, dyspnea on exertion, edema, orthropnea, palpitations Respiratory: ABSENT: cough, hemoptysis Gastrointestinal: ABSENT: abdominal pain, constipation, diarrhea, hematemesis, hematochezia, nausea, vomiting Genitourinary: ABSENT: dysuria, hematuria Musculoskeletal: ABSENT: joint swelling Integumentary: ABSENT: rash, wounds Neurological: ABSENT: abnormal gait, abnormal speech, confusion, dizziness, focal weakness, syncope Psychiatric: ABSENT: anxiety, depression, homidical ideation, suicidal ideation Endocrine: ABSENT: cold intolerance, heat intolerance, polydipsia, polyuria Hematologic/Lymphatic: ABSENT: easy bleeding, easy bruising Physical Exam Vital Signs: Temp Pulse Resp BP Pulse Ox 98.3 F 112 H 19 85/60 L 96 12/28/19 10:00 12/28/19 08:21 12/28/19 08:21 12/28/19 07:17 12/28/19 08:21 Intake & Output 12/27/19 12/28/19 12/29/19 06:59 06:59 06:59 Intake Total 400 620 Output Total 3325 4000 Balance -2925 -3380 Weight 88.6 kg 84.2 kg 84.2 kg General appearance: PRESENT: no acute distress, well-developed, well-nourished Head exam: PRESENT: atraumatic, normocephalic Eye exam: PRESENT: conjunctiva pink, EOMI, PERRLA. ABSENT: scleral icterus Ear exam: PRESENT: normal external ear exam Mouth exam: PRESENT: moist, tongue midline Neck exam: ABSENT: carotid bruit, JVD, lymphadenopathy, thyromegaly Respiratory exam: PRESENT: clear to auscultation javier. ABSENT: rales, rhonchi, wheezes Cardiovascular exam: PRESENT: RRR. ABSENT: diastolic murmur, rubs, systolic murmur Pulses: PRESENT: normal dorsalis pedis pul Vascular exam: PRESENT: normal capillary refill GI/Abdominal exam: PRESENT: normal bowel sounds, soft. ABSENT: distended, guarding, mass, organolmegaly, rebound, tenderness Rectal exam: PRESENT: deferred Extremities exam: PRESENT: full ROM. ABSENT: calf tenderness, clubbing, pedal edema Neurological exam: PRESENT: alert, awake, oriented to person, oriented to place, oriented to time, oriented to situation, CN II-XII grossly intact. ABSENT: motor sensory deficit Psychiatric exam: PRESENT: appropriate affect, normal mood. ABSENT: homicidal ideation, suicidal ideation Skin exam: PRESENT: dry, intact, warm. ABSENT: cyanosis, rash Results Laboratory Results: 12/28/19 05:00 12/28/19 05:00 12/28/19 12/28/19 05:00 05:00 WBC 4.2 RBC 3.10 L Hgb 9.7 L Hct 28.5 L MCV 92 MCH 31.4 MCHC 34.1 RDW 19.1 H Plt Count 130 L Sodium 134.9 L Potassium 4.1 Chloride 90 L Carbon Dioxide 42 H* Anion Gap 3 L BUN 8 Creatinine 0.55 Est GFR ( Amer) > 60 Glucose 89 Calcium 7.9 L 12/25/19 12/25/19 12/26/19 19:04 19:04 00:51 Creatine Kinase 57 CK-MB (CK-2) Troponin I 0.012 NT-Pro-B Natriuret Pep 1840 H 12/26/19 12/26/19 12/26/19 00:51 06:56 06:56 Creatine Kinase 49 CK-MB (CK-2) 1.47 1.29 Troponin I < 0.012 < 0.012 NT-Pro-B Natriuret Pep 12/26/19 12/26/19 12/27/19 12:26 12:26 05:40 Creatine Kinase 47 CK-MB (CK-2) 1.30 Troponin I < 0.012 NT-Pro-B Natriuret Pep 1180 H Impressions: Chest X-Ray 12/25/19 18:43 IMPRESSION: Severe rounded contour of the heart has increased significantly since 09/10/2019, possibly representing a moderate to large pericardial effusion. Echocardiogram may provide additional information. No acute consolidation. Venous Doppler Study 12/25/19 20:14 IMPRESSION: No DVT is identified. TECHNIQUE: LIMITATIONS: None. FINDINGS: IMPRESSION: copyright 2010 [employer]- All Rights Reserved Chest/Abdomen CTA 12/27/19 00:00 IMPRESSION: 1. There are no pulmonary emboli. There is no aortic aneurysm or dissection. 2. Cardiomegaly with mild pulmonary edema superimposed upon emphysematous changes. 3. The 2 larger right pulmonary nodules have increased in size slightly. Cannot exclude neoplasm. Assessment & Plan - Diagnosis (1) Lung cancer Qualifiers: Laterality: left Lung location: overlapping sites Qualified Code(s): C34.82 - Malignant neoplasm of overlapping sites of left bronchus and lung Is this a current diagnosis for this admission?: Yes Plan: Patient with history of lung cancer, overall her imaging studies done recently at [facility] shows overall stability of findings. So she does not have progression and I told her that it made her aware. Her major issues recently have been related to other medical conditions. - Time Time Spent: Greater than 70 Minutes
[2019-12-28] MEDS ORDERED: CHLORPHENIRAMINE PO PRN (14:25)
[2019-12-28] MEDS ORDERED: HYDROCODONE PO PRN (14:25)
[2019-12-28] MEDS: HYDROXYZINE HCL 10 MG TABLET PO PRN (14:34)
[2019-12-28] MEDS ORDERED: METOPROLOL TARTRATE 25 MG TABLET PO SCH (15:00)
[2019-12-28] MEDS: MAGNESIUM SULFATE/D5W 1 GM/100 ML RTUPB IV SCH ×2 (15:19→18:18)
[2019-12-28] MEDS: ALBUTEROL SULFATE HFA (90 MCG/PUFF) 8 GM MDI IH PRN (15:36)
[2019-12-28] MEDS ORDERED: POLYETHYLENE GLYCOL 3350 POWDER 17 GM/1 PACKET PO PRN (16:22)
--- NOTE | 2019-12-28 17:17 | PDOC PROGRESS REPORT ---
Subjective Progress Note for:: 12/28/19 Subjective:: She is a 51-year-old female with past medical history of hypertension, asthma, COPD, chronic respiratory failure (on home O2 at 2 L/min), obesity, lung cancer, arthritis, gout, depression, tobacco dependency, and opiate dependent chronic pain who was admitted 12/25/2019 for acute on chronic respiratory failure with hypoxia secondary to CHF exacerbation. Patient was seen on morning rounds. She is found resting in bed, comfortably, on supplemental oxygen by nasal cannula. She is awake, A&Ox4. Reports that she is feeling much better today. She asks to keep her ProAir MDI at bedside to assist w/ dyspnea/cough. Otherwise, she has no questions or concerns. She denies fever, chills, chest pain, palpitation, orthopnea, abdominal pain, nausea vomiting and diarrhea. No concerns per nursing. Reason For Visit: ACUTE ON CHRONIC RESPIRATORY FAILURE WITH HYPOXIA Physical Exam Vital Signs: Temp Pulse Resp BP Pulse Ox 98.5 F 88 24 H 69/50 L 75 L 12/28/19 15:19 12/28/19 15:19 12/28/19 15:19 12/28/19 15:19 12/28/19 15:19 Intake & Output 12/27/19 12/28/19 12/29/19 06:59 06:59 06:59 Intake Total 400 620 120 Output Total 3325 4000 1050 Balance -2925 -9370 -930 Weight 88.6 kg 84.2 kg 84.2 kg General appearance: PRESENT: no acute distress, obese, well-developed, well- nourished Head exam: PRESENT: atraumatic, normocephalic Eye exam: PRESENT: conjunctiva pink, EOMI, PERRLA. ABSENT: scleral icterus Mouth exam: PRESENT: moist, tongue midline Teeth exam: PRESENT: poor dentation Respiratory exam: PRESENT: prolonged expiratory phas, rhonchi, symmetrical, unlabored, other - supplemental oxygen via NC. ABSENT: rales, wheezes Cardiovascular exam: PRESENT: RRR, other - several beats of V-tach noted on telemetry today. ABSENT: diastolic murmur, rubs, systolic murmur Pulses: PRESENT: normal dorsalis pedis pul Vascular exam: PRESENT: normal capillary refill Extremities exam: PRESENT: full ROM. ABSENT: calf tenderness, clubbing, pedal edema, +1 edema Neurological exam: PRESENT: alert, awake, oriented to person, oriented to place, oriented to time, oriented to situation, CN II-XII grossly intact. ABSENT: motor sensory deficit Psychiatric exam: PRESENT: appropriate affect, normal mood. ABSENT: homicidal ideation, suicidal ideation Skin exam: PRESENT: dry, intact, warm. ABSENT: cyanosis, rash Results Laboratory Results: 12/28/19 05:00 12/28/19 05:00 12/28/19 12/28/19 12/28/19 05:00 05:00 05:00 WBC 4.2 RBC 3.10 L Hgb 9.7 L Hct 28.5 L MCV 92 MCH 31.4 MCHC 34.1 RDW 19.1 H Plt Count 130 L Sodium 134.9 L Potassium 4.1 Chloride 90 L Carbon Dioxide 42 H* Anion Gap 3 L BUN 8 Creatinine 0.55 Est GFR ( Amer) > 60 Glucose 89 Calcium 7.9 L Magnesium 1.2 L* 12/25/19 12/25/19 12/26/19 19:04 19:04 00:51 Creatine Kinase 57 CK-MB (CK-2) Troponin I 0.012 NT-Pro-B Natriuret Pep 1840 H 12/26/19 12/26/19 12/26/19 00:51 06:56 06:56 Creatine Kinase 49 CK-MB (CK-2) 1.47 1.29 Troponin I < 0.012 < 0.012 NT-Pro-B Natriuret Pep 12/26/19 12/26/19 12/27/19 12:26 12:26 05:40 Creatine Kinase 47 CK-MB (CK-2) 1.30 Troponin I < 0.012 NT-Pro-B Natriuret Pep 1180 H Impressions: Chest X-Ray 12/25/19 18:43 IMPRESSION: Severe rounded contour of the heart has increased significantly since 09/10/2019, possibly representing a moderate to large pericardial effusion. Echocardiogram may provide additional information. No acute consolidation. Venous Doppler Study 12/25/19 20:14 IMPRESSION: No DVT is identified. TECHNIQUE: LIMITATIONS: None. FINDINGS: IMPRESSION: copyright 2010 [email or web address]- All Rights Reserved Chest/Abdomen CTA 12/27/19 00:00 IMPRESSION: 1. There are no pulmonary emboli. There is no aortic aneurysm or dissection. 2. Cardiomegaly with mild pulmonary edema superimposed upon emphysematous changes. 3. The 2 larger right pulmonary nodules have increased in size slightly. Cannot exclude neoplasm. Assessment and Plan - Diagnosis (1) Acute congestive heart failure Qualifiers: Heart failure type: diastolic Qualified Code(s): I50.31 - Acute diastolic (congestive) heart failure Is this a current diagnosis for this admission?: Yes Plan: Echocardiogram revealed LVEF 60% with grade 2 diastolic dysfunction, mild LVH, severely dilated right atrium, mildly dilatated right ventricle, right ventricle. Moderate tricuspid regurgitation. Moderate pulmonary hypertension. proBNP elevated 1840 CXR noted to have severe large amount of the heart CTA Chest was negative for PE; notes mild pulmonary edema in setting of emphysema Weight down 4 kg; -2.9 L fluid balance. Patient is admitted to the medical floor on continuous cardiac telemetry. Cardiology is consulted; appreciate Dr. Schultz's assistance. Spoke with Dr. Schultz today, will see patient tomorrow. Hold furosemide r/t hypotension Continue daily Plavix. It appears that patient is not on hypertensives at home; consider start of Beta maggy and AMARI/ARB prior to discharge. Cardiac diet. Fluid restricted 2L daily. Daily weights, strict I&Os Patient educator consulted. (2) Acute on chronic respiratory failure with hypoxia Is this a current diagnosis for this admission?: Yes Plan: Improved Multifactorial secondary to CHF exacerbation and COPD in the setting of lung CA. CTA chest noted mild pulmonary edema. Diuresis mentioned above. Provide supplemental oxygen as needed to maintain oxygen saturations greater than 89%. Encourage BiPAP use Scheduled and as needed nebulizer treatments. (3) Emphysema lung Qualifiers: Emphysema type: unspecified Qualified Code(s): J43.9 - Emphysema, unspecified Is this a current diagnosis for this admission?: Yes Plan: Supplemental oxygen BiPAP as needed to maintain saturations greater than 89%. Continue scheduled and as needed nebulizer treatments. Start Mucinex twice daily. Consider steroid therapy. Incentive spirometry and flutter valve to bedside. Encourage ambulation and out of bed 3 times daily. (4) Ulcer of right foot with fat layer exposed Is this a current diagnosis for this admission?: Yes Plan: Status post bedside debridement by Dr. Russell. Wound care per surgery's recommendations. They have signed off. No indications for antibiotic therapy at this time. (5) Chronic venous insufficiency of lower extremity Is this a current diagnosis for this admission?: Yes Plan: Venous Doppler studies negative for DVT bilaterally. JOSELINE mendez and angelina. (6) Tobacco abuse Is this a current diagnosis for this admission?: Yes Plan: Smoking cessation encouraged. Nicotine replacement therapies provided (7) Alcohol dependency Qualifiers: Is this a current diagnosis for this admission?: Yes Plan: Patient has history of heavy EtOH use/dependence. Daily folic acid, thiamine, multivitamin supplementation. CIWA every 4 hours with Ativan as needed Cessation encouraged. (8) Chronic back pain Qualifiers: Back pain location: back pain in unspecified location Back pain laterality: unspecified Qualified Code(s): M54.9 - Dorsalgia, unspecified; G89.29 - Other chronic pain Is this a current diagnosis for this admission?: Yes Plan: Continues patient's home medication regiment; Subutex 8 mg sublingual twice daily. Tylenol as needed. Nonpharmacological interventions. (9) Morbid obesity Is this a current diagnosis for this admission?: Yes Plan: Lifestyle modification dietary discretion advised. Patient currently on cardiac diet. (10) Lung cancer Qualifiers: Laterality: left Lung location: overlapping sites Qualified Code(s): C34.82 - Malignant neoplasm of overlapping sites of left bronchus and lung Is this a current diagnosis for this admission?: Yes Plan: Not currently receiving treatment. Previously followed by Dr. Farah; will discuss with patient who her current oncologist is. Consider heme-onc consultation. (11) Ventricular tachycardia (paroxysmal) Is this a current diagnosis for this admission?: Yes Plan: Noted on telemetry. Patient asymptomatic Spontaneously aborted Magnesium 1.2, Potassium 4.1 Monitor on telemetry Replace magnesium One time dose metoprolol 12 mg Cardiology consulted. (12) Hypomagnesemia Is this a current diagnosis for this admission?: Yes Plan: Mag 1.2 IV replacement today Follow up mag level (13) Hypotension Is this a current diagnosis for this admission?: Yes Plan: Secondary to diuresis utilizing IV furosemide, 1 time dose of metoprolol, and home dose narcotic medications. Furosemide and metoprolol are placed on hold. Fall precautions. - Time Time Spent with patient: 35 or more minutes Medications reviewed and adjusted accordingly: Yes Anticipated Discharge Disposition: Home, Self Care Anticipated Discharge Timeframe: within 72 hours
[2019-12-28] MEDS: HYDROCODONE PO PRN (19:44)
[2019-12-28] MEDS: CHLORPHENIRAMINE PO PRN (19:44)
[2019-12-28] MEDS ORDERED: FUROSEMIDE INJ/PF 20 MG/2 ML SDV IV SCH (22:00)
--- NOTE | 2019-12-28 22:45 | PDOC CONSULTATION ---
Consultation-Blank Consultation: CARDIOLOGY CONSULTATION by Dr. Cassandra Davis on 12/28/2019. Patient seen at 11:30 AM. 60 minutes spent with patient more than 50% of time spent in direct patient care. REASON FOR CONSULTATION: Patient with 1 run of nonsustained wide-complex tachycardia. CONSULT REQUESTING PHYSICIAN: [facility], [facility] HISTORY OF PRESENT ILLNESS: Patient is a 59-year-old Afro-[place]ian female with known history of COPD with continuous tobacco abuse, history of lung cancer stag e III with a history of immunotherapy about 12 weeks ago admitted with acute exacerbation of COPD with shortness of breath. She also has been having leg edema. Echocardiogram this admission showed normal left ventricle ejection fraction. She has moderate pulmonary hypertension. With dilated right ventricle and right atrium. The patient was seen to have on the monitor a run of nonsustained wide-complex tachycardia the differential of which is nonsustained ventricular tachycardia versus atrial flutter with aberrancy. The patient did not feel any palpitations and is been asymptomatic. She has no history of syncope or palpitations or near syncope. She has a history of chronic intermittent leg edema suggestive of right heart failure with shortness of breath and orthopnea. She does have orthopnea at present. She has COPD and lung cancer and continues to smoke. There is no history of sleep apnea. There is no history of myocardial infarction or anginal symptoms. There is no eviden ce of left heart failure in the past. On further investigation the patient's magnesium was 1.2 and this is being replaced. This is most likely the cause of the patient's arrhythmia. Past Medical History Cardiac Medical History: Reports: Hypertension Denies: Atrial Fibrillation, Congestive Heart Failure, Coronary Artery Disease, DVT, Myocardial Infarction, Hyperlipidema, Pulmonary Embolism Pulmonary Medical History: Reports: Asthma, Bronchitis, Chronic Obstructive Pulmonary Disease (COPD), Pneumonia, Respiratory Failure - Chronic on home O2, Sleep Apnea states she uses CPAP. History of lung cancer stage III. EENT Medical History: Denies: Cataracts, Ears - Hearing aids Neurological Medical History: Denies: Hemorrhagic CVA, Ischemic CVA, Seizures Endocrine Medical History: Reports: Obesity Denies: Diabetes Mellitus Type 1, Diabetes Mellitus Type 2, Hyperthyroidism, Hypothyroidism Renal/ Medical History: Denies: Chronic Kidney Disease, Nephrolithiasis Malignancy Medical History: Reports: Lung Cancer GI Medical History: Reports: Gastroesophageal Reflux Disease Denies: Cirrhosis, Hepatitis, Peptic Ulcer Disease Musculoskeltal Medical History: Reports: Arthritis, Gout Denies: Fibromyalgia Skin Medical History: Denies: Eczema, Psoriasis Psychiatric Medical History: Reports: Depression, Tobacco Dependency Denies: Alcohol Dependency, Substance Abuse Traumatic Medical History: Reports: None Hematology: Reports: Anemia Denies: Bleeding Tendencies Infectious Medical History: Reports: None Past Surgical History Past Surgical History: Reports: Tubal Ligation, Other - Unilateral salpingectomy, colonoscopy Social History Information Source: Patient, [facility] Records Lives with: Spouse/Significant other Smoking Status: Current Every Day Smoker Electronic Cigarette use?: No Frequency of Alcohol Use: Occasional - Past history of heavy alcohol use Hx Recreational Drug Use: Yes - Remote past, no current use Hx Prescription Drug Abuse: No - Advance Directive Resuscitation Status: Full Code Surrogate healthcare decision maker:: Shadi Neil [patient's son] Family History Family History: CAD, Malignancy Parental Family History Reviewed: Yes Children Family History Reviewed: No Sibling(s) Family History Reviewed.: Yes Medication/Allergy Home Medications: Albuterol Sulfate [Albuterol Sulfate Hfa] 1 puff IH Q6HP PRN 09/04/19 Fluticasone/Umeclidin/Vilanter [Trelegy 100-62.5-25 Mcg Ellipta 14 Dose/Dpi] 1 puff IH DAILY 09/04/19 Hydrocortisone [Hydrocortisone 2.5% Cream 28 gm (Clinic Use)] 1 applic TOP BID 09/04/19 Pantoprazole Sodium [Protonix [address] Tablet] 40 mg PO DAILY 09/04/19 Tussionex 5 ml PO Q8HP PRN 09/04/19 Gabapentin [Neurontin 100 mg Capsule] 100 mg PO TID 11/18/19 Levofloxacin [Levaquin 500 mg Tablet] 500 mg PO DAILY 7 Days #7 tablet 11/22/19 Linezolid 600 mg PO BID 12 Days #24 tablet 11/22/19 Nystatin [Mycostatin Cream 15 gm] 1 applic TP BID 7 Days #1 tube 11/22/19 Allergies/Adverse Reactions: aspirin [Aspirin] Allergy (Verified 10/06/18 17:54) NSAIDS (Non-Steroidal Anti-Inflamma [Nsaids] Allergy (Verified 10/06/18 17:54) Penicillins Allergy (Verified 10/06/18 17:54) Current Medications Generic Name Dose Route Start Last Admin Trade Name Freq PRN Reason Stop Dose Admin Acetaminophen 650 mg 12/25/19 22:51 12/29/19 05:13 Tylenol 325 Mg Tablet PO 01/24/20 22:50 650 mg Q4HP PRN Administration pain or temp greater than 101F Al Hydrox/Mg Hydrox/Simethicone 30 ml 12/25/19 22:51 Maalox Plus Susp 30 Udcup PO 01/24/20 22:50 Q4HP PRN HEARTBURN Albuterol 1 puff 12/26/19 11:07 12/28/19 15:36 Ventolin Hfa 8 Gm Mdi IH 01/25/20 11:06 1 puff Q6HP PRN Administration SHORTNESS OF BREATH Albuterol/Ipratropium 3 ml 12/26/19 20:00 12/29/19 07:50 Duoneb 3 Ml Ampul NEB 01/25/20 19:59 3 ml RTQ6 TAWANA Administration Buprenorphine HCl 8 mg 12/26/19 11:15 12/29/19 09:40 Subutex 2 Mg Sl Tablet SL 01/02/20 11:14 8 mg Q12 TAWANA Administration Clopidogrel Bisulfate 75 mg 12/26/19 10:00 12/29/19 09:40 Plavix 75 Mg Tablet PO 01/25/20 09:59 75 mg DAILY TAWANA Administration Diazepam 5 mg 12/26/19 11:21 Valium Inj 10 Mg/2 Ml Disp.Syrin IV 01/02/20 11:20 Q4HP PRN CIWA >10, call for CIWA >20 Docusate Sodium 100 mg 12/26/19 10:00 12/29/19 09:38 Colace 100 Mg Capsule PO 01/25/20 09:59 Not Given DAILY TAWANA Fluticasone/Vilanterol 1 inh 12/27/19 10:00 12/29/19 09:40 Trelegy 100-62.5-25 Mcg Ellipta 14 Dose/Dpi IH 01/26/20 09:59 1 inhaler DAILY TAWANA Administration Folic Acid 1 mg 12/27/19 10:00 12/29/19 09:40 Folvite 1 Mg Tablet PO 01/26/20 09:59 1 mg DAILY TAWANA Administration Guaifenesin 200 mg 12/25/19 22:58 12/28/19 08:34 Robitussin Syrup 200 Mg/10 Ml Ud Cup PO 01/24/20 22:57 200 mg Q4HP PRN Administration COUGH Guaifenesin 600 mg 12/27/19 22:00 12/29/19 09:43 Mucinex Sr 600 Mg Tablet.Sa PO 01/26/20 21:59 Not Given Q12 TAWANA Heparin Sodium (Porcine) 5,000 unit 12/26/19 06:00 12/29/19 05:04 Heparin Inj 5,000 Units/Ml 1 Ml Vial SUBCUT 01/25/20 05:59 5,000 unit Q8 TAWANA Administration Heparin Sodium (Porcine) 70 unit 12/26/19 11:01 Heparin Flush 10 Unit/Ml 5 Ml Disp.Syrg IV 01/25/20 11:00 .AFTER EACH USE PRN AFTER EACH INTERMITTENT USE Heparin Sodium (Porcine) 50 unit 12/26/19 22:00 12/29/19 05:04 Heparin Flush 10 Unit/Ml 5 Ml Disp.Syrg IV 01/25/20 21:59 50 unit Q8 TAWANA Administration Heparin Sodium (Porcine) 50 unit 12/26/19 19:00 12/28/19 19:58 Heparin Flush 10 Unit/Ml 5 Ml Disp.Syrg IV 01/25/20 18:59 50 unit .AFTER EACH USE PRN Administration AFTER EACH INTERMITTENT USE Hydroxyzine HCl 25 mg 12/28/19 11:40 12/29/19 05:03 Atarax 10 Mg Tablet PO 01/27/20 11:39 25 mg Q6HP PRN Administration ITCHING Magnesium Hydroxide 30 ml 12/25/19 22:51 Milk Of Magnesia 30 Ml Udcup PO 01/24/20 22:50 HSP PRN FOR CONSTIPATION Melatonin 5 mg 12/25/19 22:58 Melatonin 5 Mg Tablet PO 01/24/20 22:57 HSP PRN SLEEP OR INSOMNIA Metoprolol Tartrate 5 mg 12/25/19 22:58 Lopressor Inj/Pf 5 Mg/5 Ml Sdv IV 01/24/20 22:57 Q4HP PRN Give For Sbp > 160 / Dbp > 100 Multivitamins 1 tab 12/27/19 10:00 12/29/19 09:40 Tab-A-Jhon (Multiple Vitamin) Tablet PO 01/26/20 09:59 1 tab DAILY TAWANA Administration Nicotine 1 each 12/25/19 22:58 Nicoderm 21 Mg/24 Hr Transderm Patch TD 01/24/20 22:57 DAILYP PRN WITHDRAWAL SYMPTOMS Nystatin 1 applic 12/26/19 18:00 12/29/19 09:41 Mycostatin Cream 15 Gm TP 01/02/20 17:59 1 applic BID TAWANA Administration Pantoprazole Sodium 40 mg 12/27/19 06:00 12/29/19 05:[address] Tablet PO 01/26/20 05:59 40 mg Q6AM TAWANA Administration Chlorpheniramine/ 1 dose 12/28/19 15:01 12/29/19 08:11 Hydrocodone Susp ( PO 01/27/20 14:59 5 ml Tussionex Q8HP PRN Administration COUGH Polyethylene Glycol 17 gm 12/28/19 16:22 Miralax Powder 17 Gm/Packet PO 01/27/20 16:21 DAILYP PRN CONSTIPATION Potassium Chloride 20 meq 12/26/19 08:00 12/29/19 12:23 Klor-Con 10 Meq Tablet Er PO 01/25/20 07:59 20 meq MEALS TAWANA Administration Promethazine HCl 12.5 mg 12/26/19 10:00 Phenergan Inj 25 Mg/1 Ml Vial IV 01/24/20 22:50 Q4HP PRN FOR NAUSEA/VOMITING Sodium Chloride 2.5 ml 12/26/19 06:00 12/29/19 05:04 Saline Flush 2.5 Ml Monoject Prefil Syrin IV 01/25/20 05:59 2.5 ml Q8 TAWANA Administration Thiamine HCl 100 mg 12/27/19 10:00 12/29/19 09:40 Thiamine 100 Mg Tablet PO 01/26/20 09:59 100 mg DAILY TAWANA Administration Discontinued Medications Generic Name Dose Route Start Last Admin Trade Name Freq PRN Reason Stop Dose Admin Furosemide 20 mg 12/25/19 21:26 12/25/19 21:35 Lasix Inj/Pf 40 Mg/4 Ml Sdv IV 12/25/19 21:27 20 mg NOW ONE Administration Furosemide 20 mg 12/26/19 00:00 12/27/19 17:38 Lasix Inj/Pf 20 Mg/2 Ml Sdv IV 01/25/20 00:00 20 mg Q6 TAWANA Administration Furosemide 20 mg 12/27/19 22:00 12/28/19 05:18 Lasix Inj/Pf 20 Mg/2 Ml Sdv IV 01/26/20 21:59 20 mg Q8 TAWANA Administration Furosemide 20 mg 12/28/19 22:00 Lasix Inj/Pf 20 Mg/2 Ml Sdv IV 01/27/20 21:59 Q12 TAWANA Heparin Sodium (Porcine) 70 unit 12/26/19 14:00 12/26/19 20:02 Heparin Flush 10 Unit/Ml 5 Ml Disp.Syrg IV 01/25/20 13:59 Not Given Q8 TAWANA Magnesium Sulfate/Dextrose 1 gm in 100 mls @ 100 mls/hr 12/26/19 09:00 12/26/19 12:00 Magnesium Sulfate Rtu-D5w 1 Gm/100 Ml Premix IV 12/26/19 10:59 Infused Q1H TAWANA Infusion Magnesium Sulfate/Dextrose 1 gm in 100 mls @ 100 mls/hr 12/28/19 15:30 12/28/19 19:20 Magnesium Sulfate Rtu-D5w 1 Gm/100 Ml Premix IV 12/28/19 17:29 Infused Q1H TAWANA Infusion Levalbuterol HCl 0.63 mg 12/25/19 22:58 12/26/19 18:39 Xopenex Neb 0.63 Mg/3 Ml Ampul NEB 01/24/20 22:57 0.63 mg RTQ2HP PRN Administration SHORTNESS OF BREATH Lidocaine HCl 30 ml 12/26/19 07:34 Xylocaine 1% Inj-Pf (10 Mg/Ml) 30 Ml Sdv .ROUTE 12/26/19 07:35 .STK-MED ONE Lidocaine HCl Confirm 12/26/19 07:38 12/26/19 08:01 Xylocaine 1% Inj-Pf (10 Mg/Ml) 30 Ml Sdv Administered 12/26/19 07:39 30 ml Dose Administration 30 ml .ROUTE .STK-MED ONE Lorazepam 1 mg 12/25/19 22:58 Ativan Inj 2 Mg/1 Ml Vial IV 01/01/20 22:57 Q4HP PRN ANXIETY/AGITATION Metoprolol Tartrate 12.5 mg 12/28/19 15:00 12/28/19 14:35 Lopressor 25 Mg Tablet PO 01/27/20 14:59 12.5 mg Q12 TAWANA Administration Morphine Sulfate 2 - 4 mg 12/25/19 22:58 12/26/19 06:32 Morphine 10 Mg/Ml Inj IV 01/01/20 22:57 2 mg Q2HP PRN Administration See protocol Protocol Morphine Sulfate 2 mg 12/25/19 22:58 Morphine 10 Mg/Ml Inj IV 01/01/20 22:57 Q1HP PRN Acute Severe Dyspnea Morphine Sulfate 3 mg 12/26/19 09:30 12/26/19 09:41 Morphine 10 Mg/Ml Inj IV 12/26/19 09:31 3 mg NOW ONE Administration Morphine Sulfate 2 mg 12/26/19 21:08 12/26/19 21:37 Morphine 10 Mg/Ml Inj IV 01/02/20 21:07 2 mg Q2HP PRN Administration PAIN SCALE OF 2 Morphine Sulfate 3 mg 12/26/19 21:12 Morphine 10 Mg/Ml Inj IV 01/02/20 21:11 Q2HP PRN FOR PAIN SCALE 3-4 Morphine Sulfate 4 mg 12/26/19 21:13 Morphine 10 Mg/Ml Inj IV 01/02/20 21:12 Q2HP PRN PAIN SCALE OF 5 Pantoprazole Sodium 40 mg 12/26/19 06:00 12/26/19 05:[address] Tablet PO 01/25/20 05:59 40 mg BID@0600,1700 TAWANA Administration Chlorpheniramine/ 1 dose 12/28/19 14:25 12/28/19 08:44 Hydrocodone Susp ( PO 01/27/20 14:24 5 ml Tussionex) Q12HP PRN Administration COUGH Pharmacy Profile Note 1 each 12/26/19 11:15 Medication Communication Order 01/25/20 11:14 .NOTICE NR Promethazine HCl 12.5 mg 12/25/19 22:51 Phenergan Inj 25 Mg/1 Ml Vial IV 01/24/20 22:50 Q4HP PRN FOR NAUSEA/VOMITING Review of Systems Constitutional: ABSENT: chills, fever(s) Eyes: ABSENT: visual disturbances, other - Eye pain Ears: ABSENT: hearing changes, other - Ear pain Nose, Mouth, and Throat: ABSENT: headache(s), sore throat Cardiovascular: PRESENT: as per HPI, dyspnea on exertion, edema. ABSENT: chest pain, orthropnea, palpitations Respiratory: PRESENT: cough - Chronic, dyspnea - Chronic. ABSENT: hemoptysis, sputum Gastrointestinal: ABSENT: abdominal pain, constipation, diarrhea, nausea, vomiting Genitourinary: ABSENT: dysuria, hematuria Musculoskeletal: PRESENT: back pain - Chronic, other - Chronic pain syndrome. ABSENT: joint swelling, muscle weakness Integumentary: ABSENT: pruritus, rash Neurological: ABSENT: confusion, convulsions, focal weakness, memory loss, syncope Psychiatric: ABSENT: anxiety, depression Endocrine: ABSENT: cold intolerance, heat intolerance Hematologic/Lymphatic: ABSENT: easy bleeding, easy bruising Allergic/Immunologic: ABSENT: seasonal rhinorrhea PHYSICAL EXAMINATION: The patient is well-built. In mild distress due to shortness of breath. At present the patient is on BiPAP earlier she was on nasal cannula. Selected Entries 12/28/19 11:52 Temperature 97.8 F Temperature Oral Source Pulse Rate 99 Respiratory 25 H Rate Blood Pressure 101/64 Blood Pressure 76 Mean BP Location Left Arm BP Position Supine O2 Sat by Pulse 94 Oximetry Oxygen Flow 3.00 Rate Oxygen Delivery Nasal Cannula Method HEAD: Head is atraumatic and normocephalic. EYES: Pupils are equal round regular reactive to light accommodation. Extraocular movements are normal, there is no conjunctival pallor, and no scleral icterus. EARS: Tympanic membranes are intact external auditory canals are clear. NOSE: There is no inflammation of the nasal mucous membrane there is no deviated nasal septum. MOUTH: Mucous membranes of mouth and tongue are moist, there is no ulcers in the mouth or tongue, and no bleeding from the gums. THROAT: There is no redness of the oropharynx, no exudate seen. SKIN: There is no petechia or ecchymosis. There is no rashes or lesions. NECK: Supple. There is no JVD. Carotids are equal there is no bruit. There is no lymphadenopathy. There is no goiter. Trachea central LUNGS: There is diminished air entry and prolonged expiration. On percussion there is hyperresonance although there is no chest wall tenderness. There is bilateral wheezing and rhonchi. There is no rales of CHF. HEART: S1 and S2 are heard. S1 is of normal intensity, there is no S3 or S4 gallops. There is a systolic murmur the left sternal border and the apex. There is no rub. ABDOMEN: Normoactive bowel sounds, soft, nontender, no masses, no rebound, no guarding. There is no hepatosplenomegaly. EXTREMITIES: Femorals are slightly diminished. There is no femoral bruits. Leg pulses are diminished. There is trace to mild pedal edema, with chronic venous stasis dermatitis changes.. There is no DVT or cellulitis. There is no cyanosis or clubbing. There is no calf tenderness. NEUROLOGICAL the patient is awake alert oriented 3 with no focal deficits. PSYCHIATRIC: The patient judgment and insight are intact his affect is susanna Labs- Entire Visit 12/25/19 12/25/19 12/25/19 19:04 19:04 19:04 WBC 5.1 RBC 3.31 L Hgb 10.3 L Hct 31.0 L MCV 94 MCH 31.2 MCHC 33.3 RDW 18.4 H Plt Count 119 L Lymph % (Auto) Not Reportable [place] % (Auto) Not Reportable Eos % (Auto) Not Reportable Baso % (Auto) Not Reportable Absolute Neuts (auto) Not Reportable Absolute Lymphs (auto) Not Reportable Absolute Monos (auto) Not Reportable Absolute Eos (auto) Not Reportable Absolute Basos (auto) Not Reportable Total Counted 100 Seg Neutrophils % Not Reportable Seg Neuts % (Manual) 70 Lymphocytes % (Manual) 22 Atypical Lymphs % Monocytes % (Manual) 8 Eosinophils % (Manual) 0 Basophils % (Manual) 0 Abs Neuts (Manual) 3.6 Abs Lymphs (Manual) 1.1 Abs Monocytes (Manual) 0.4 Absolute Eos (Manual) 0.0 Abs Basophils (Manual) 0.0 Nucleated RBCs 4 Platelet Comment DECREASED Polychromasia Poikilocytosis Anisocytosis 1+ Target Cells Tear Drop Cells SLIGHT Ovalocytes SLIGHT Schistocytes D-Dimer Carbonic Acid HCO3/H2CO3 Ratio ABG pH ABG pCO2 ABG pO2 ABG HCO3 ABG Total CO2 ABG O2 Saturation ABG Base Excess FiO2 Sodium 133.5 L Potassium 4.3 Chloride 97 L Carbon Dioxide 26 Anion Gap 11 BUN 8 Creatinine 0.63 Est GFR ( Amer) > 60 Est GFR (MDRD) Non-Af > 60 Glucose 77 Calcium 8.7 Magnesium Total Bilirubin 0.5 Direct Bilirubin 0.4 Neonat Total Bilirubin Not Reportable Neonat Direct Bilirubin Not Reportable Neonat Indirect Bili Not Reportable AST 31 ALT 9 Alkaline Phosphatase 158 H Creatine Kinase CK-MB (CK-2) Troponin I 0.012 NT-Pro-B Natriuret Pep Total Protein 7.4 Albumin 3.2 L Triglycerides Cholesterol LDL Cholesterol Direct VLDL Cholesterol HDL Cholesterol TSH Free T4 Free T3 pg/mL Urine Color Urine Appearance Urine pH Ur Specific [place] Urine Protein Urine Glucose (UA) Urine Ketones Urine Blood Urine Nitrite Urine Bilirubin Urine Urobilinogen Ur Leukocyte Esterase Urine WBC (Auto) U Hyaline Cast (Auto) Squamous Epi Cells Auto Urine Mucus (Auto) Urine Ascorbic Acid 12/25/19 12/25/19 12/26/19 19:04 22:30 00:51 WBC RBC Hgb Hct MCV MCH MCHC RDW Plt Count Lymph % (Auto) [place] % (Auto) Eos % (Auto) Baso % (Auto) Absolute Neuts (auto) Absolute Lymphs (auto) Absolute Monos (auto) Absolute Eos (auto) Absolute Basos (auto) Total Counted Seg Neutrophils % Seg Neuts % (Manual) Lymphocytes % (Manual) Atypical Lymphs % Monocytes % (Manual) Eosinophils % (Manual) Basophils % (Manual) Abs Neuts (Manual) Abs Lymphs (Manual) Abs Monocytes (Manual) Absolute Eos (Manual) Abs Basophils (Manual) Nucleated RBCs Platelet Comment Polychromasia Poikilocytosis Anisocytosis Target Cells Tear Drop Cells Ovalocytes Schistocytes D-Dimer Carbonic Acid HCO3/H2CO3 Ratio ABG pH ABG pCO2 ABG pO2 ABG HCO3 ABG Total CO2 ABG O2 Saturation ABG Base Excess FiO2 Sodium Potassium Chloride Carbon Dioxide Anion Gap BUN Creatinine Est GFR ( Amer) Est GFR (MDRD) Non-Af Glucose Calcium Magnesium Total Bilirubin Direct Bilirubin Neonat Total Bilirubin Neonat Direct Bilirubin Neonat Indirect Bili AST ALT Alkaline Phosphatase Creatine Kinase 57 CK-MB (CK-2) Troponin I NT-Pro-B Natriuret Pep 1840 H Total Protein Albumin Triglycerides Cholesterol LDL Cholesterol Direct VLDL Cholesterol HDL Cholesterol TSH Free T4 Free T3 pg/mL Urine Color YELLOW Urine Appearance CLEAR Urine pH 5.0 Ur Specific [place] 1.010 Urine Protein NEGATIVE Urine Glucose (UA) NEGATIVE Urine Ketones NEGATIVE Urine Blood NEGATIVE Urine Nitrite NEGATIVE Urine Bilirubin NEGATIVE Urine Urobilinogen NEGATIVE Ur Leukocyte Esterase NEGATIVE Urine WBC (Auto) 0 U Hyaline Cast (Auto) 1 Squamous Epi Cells Auto 1 Urine Mucus (Auto) RARE Urine Ascorbic Acid NEGATIVE 12/26/19 12/26/19 12/26/19 00:51 06:56 06:56 WBC RBC Hgb Hct MCV MCH MCHC RDW Plt Count Lymph % (Auto) [place] % (Auto) Eos % (Auto) Baso % (Auto) Absolute Neuts (auto) Absolute Lymphs (auto) Absolute Monos (auto) Absolute Eos (auto) Absolute Basos (auto) Total Counted Seg Neutrophils % Seg Neuts % (Manual) Lymphocytes % (Manual) Atypical Lymphs % Monocytes % (Manual) Eosinophils % (Manual) Basophils % (Manual) Abs Neuts (Manual) Abs Lymphs (Manual) Abs Monocytes (Manual) Absolute Eos (Manual) Abs Basophils (Manual) Nucleated RBCs Platelet Comment Polychromasia Poikilocytosis Anisocytosis Target Cells Tear Drop Cells Ovalocytes Schistocytes D-Dimer Carbonic Acid HCO3/H2CO3 Ratio ABG pH ABG pCO2 ABG pO2 ABG HCO3 ABG Total CO2 ABG O2 Saturation ABG Base Excess FiO2 Sodium 136.1 L Potassium 3.7 Chloride 96 L Carbon Dioxide 33 H Anion Gap 7 BUN 7 Creatinine 0.64 Est GFR ( Amer) > 60 Est GFR (MDRD) Non-Af > 60 Glucose 87 Calcium 8.6 Magnesium 1.2 L* Total Bilirubin Direct Bilirubin Neonat Total Bilirubin Neonat Direct Bilirubin Neonat Indirect Bili AST ALT Alkaline Phosphatase Creatine Kinase 49 CK-MB (CK-2) 1.47 1.29 Troponin I < 0.012 < 0.012 NT-Pro-B Natriuret Pep Total Protein Albumin Triglycerides 78 Cholesterol 103.29 LDL Cholesterol Direct 33 VLDL Cholesterol 16.0 HDL Cholesterol 49 TSH Free T4 Free T3 pg/mL Urine Color Urine Appearance Urine pH Ur Specific [place] Urine Protein Urine Glucose (UA) Urine Ketones Urine Blood Urine Nitrite Urine Bilirubin Urine Urobilinogen Ur Leukocyte Esterase Urine WBC (Auto) U Hyaline Cast (Auto) Squamous Epi Cells Auto Urine Mucus (Auto) Urine Ascorbic Acid 12/26/19 12/26/19 12/26/19 06:56 06:56 06:56 WBC 3.6 L RBC 3.25 L Hgb 10.1 L Hct 30.1 L MCV 93 MCH 31.1 MCHC 33.6 RDW 18.4 H Plt Count 112 L Lymph % (Auto) Not Reportable [place] % (Auto) Not Reportable Eos % (Auto) Not Reportable Baso % (Auto) Not Reportable Absolute Neuts (auto) Not Reportable Absolute Lymphs (auto) Not Reportable Absolute Monos (auto) Not Reportable Absolute Eos (auto) Not Reportable Absolute Basos (auto) Not Reportable Total Counted 100 Seg Neutrophils % Not Reportable Seg Neuts % (Manual) 65 Lymphocytes % (Manual) 20 Atypical Lymphs % 3 Monocytes % (Manual) 7 Eosinophils % (Manual) 4 Basophils % (Manual) 1 Abs Neuts (Manual) 2.3 Abs Lymphs (Manual) 0.8 Abs Monocytes (Manual) 0.3 Absolute Eos (Manual) 0.1 Abs Basophils (Manual) 0.0 Nucleated RBCs Platelet Comment DECREASED Polychromasia SLIGHT Poikilocytosis 1+ Anisocytosis 2+ Target Cells 1+ Tear Drop Cells Ovalocytes Schistocytes SLIGHT D-Dimer Carbonic Acid HCO3/H2CO3 Ratio ABG pH ABG pCO2 ABG pO2 ABG HCO3 ABG Total CO2 ABG O2 Saturation ABG Base Excess FiO2 Sodium Potassium Chloride Carbon Dioxide Anion Gap BUN Creatinine Est GFR ( Amer) Est GFR (MDRD) Non-Af Glucose Calcium Magnesium Total Bilirubin Direct Bilirubin Neonat Total Bilirubin Neonat Direct Bilirubin Neonat Indirect Bili AST ALT Alkaline Phosphatase Creatine Kinase CK-MB (CK-2) Troponin I NT-Pro-B Natriuret Pep Total Protein Albumin Triglycerides Cholesterol LDL Cholesterol Direct VLDL Cholesterol HDL Cholesterol TSH 9.82 H Free T4 1.01 Free T3 pg/mL 2.77 Urine Color Urine Appearance Urine pH Ur Specific [place] Urine Protein Urine Glucose (UA) Urine Ketones Urine Blood Urine Nitrite Urine Bilirubin Urine Urobilinogen Ur Leukocyte Esterase Urine WBC (Auto) U Hyaline Cast (Auto) Squamous Epi Cells Auto Urine Mucus (Auto) Urine Ascorbic Acid 12/26/19 12/26/19 12/27/19 12:26 12:26 05:40 WBC 5.1 RBC 3.06 L Hgb 9.5 L Hct 28.4 L MCV 93 MCH 31.1 MCHC 33.5 RDW 18.6 H Plt Count 113 L Lymph % (Auto) 11.7 L [place] % (Auto) 11.1 Eos % (Auto) 1.1 Baso % (Auto) 0.3 Absolute Neuts (auto) 3.9 Absolute Lymphs (auto) 0.6 Absolute Monos (auto) 0.6 Absolute Eos (auto) 0.1 Absolute Basos (auto) 0.0 Total Counted Seg Neutrophils % 75.8 Seg Neuts % (Manual) Lymphocytes % (Manual) Atypical Lymphs % Monocytes % (Manual) Eosinophils % (Manual) Basophils % (Manual) Abs Neuts (Manual) Abs Lymphs (Manual) Abs Monocytes (Manual) Absolute Eos (Manual) Abs Basophils (Manual) Nucleated RBCs Platelet Comment Polychromasia Poikilocytosis Anisocytosis Target Cells Tear Drop Cells Ovalocytes Schistocytes D-Dimer Carbonic Acid HCO3/H2CO3 Ratio ABG pH ABG pCO2 ABG pO2 ABG HCO3 ABG Total CO2 ABG O2 Saturation ABG Base Excess FiO2 Sodium Potassium Chloride Carbon Dioxide Anion Gap BUN Creatinine Est GFR ( Amer) Est GFR (MDRD) Non-Af Glucose Calcium Magnesium Total Bilirubin Direct Bilirubin Neonat Total Bilirubin Neonat Direct Bilirubin Neonat Indirect Bili AST ALT Alkaline Phosphatase Creatine Kinase 47 CK-MB (CK-2) 1.30 Troponin I < 0.012 NT-Pro-B Natriuret Pep Total Protein Albumin Triglycerides Cholesterol LDL Cholesterol Direct VLDL Cholesterol HDL Cholesterol TSH Free T4 Free T3 pg/mL Urine Color Urine Appearance Urine pH Ur Specific [place] Urine Protein Urine Glucose (UA) Urine Ketones Urine Blood Urine Nitrite Urine Bilirubin Urine Urobilinogen Ur Leukocyte Esterase Urine WBC (Auto) U Hyaline Cast (Auto) Squamous Epi Cells Auto Urine Mucus (Auto) Urine Ascorbic Acid 12/27/19 12/27/19 12/27/19 05:40 05:40 06:15 WBC RBC Hgb Hct MCV MCH MCHC RDW Plt Count Lymph % (Auto) [place] % (Auto) Eos % (Auto) Baso % (Auto) Absolute Neuts (auto) Absolute Lymphs (auto) Absolute Monos (auto) Absolute Eos (auto) Absolute Basos (auto) Total Counted Seg Neutrophils % Seg Neuts % (Manual) Lymphocytes % (Manual) Atypical Lymphs % Monocytes % (Manual) Eosinophils % (Manual) Basophils % (Manual) Abs Neuts (Manual) Abs Lymphs (Manual) Abs Monocytes (Manual) Absolute Eos (Manual) Abs Basophils (Manual) Nucleated RBCs Platelet Comment Polychromasia Poikilocytosis Anisocytosis Target Cells Tear Drop Cells Ovalocytes Schistocytes D-Dimer Carbonic Acid 1.78 H HCO3/H2CO3 Ratio 20:1 ABG pH 7.41 ABG pCO2 59.1 H ABG pO2 75.6 L ABG HCO3 36.5 H ABG Total CO2 38.3 H ABG O2 Saturation 94.9 ABG Base Excess 10.2 FiO2 28 Sodium 135.9 L Potassium 4.0 Chloride 95 L Carbon Dioxide 35 H Anion Gap 6 BUN 7 Creatinine 0.54 Est GFR ( Amer) > 60 Est GFR (MDRD) Non-Af > 60 Glucose 85 Calcium 8.2 L Magnesium Total Bilirubin Direct Bilirubin Neonat Total Bilirubin Neonat Direct Bilirubin Neonat Indirect Bili AST ALT Alkaline Phosphatase Creatine Kinase CK-MB (CK-2) Troponin I NT-Pro-B Natriuret Pep 1180 H Total Protein Albumin Triglycerides Cholesterol LDL Cholesterol Direct VLDL Cholesterol HDL Cholesterol TSH Free T4 Free T3 pg/mL Urine Color Urine Appearance Urine pH Ur Specific [place] Urine Protein Urine Glucose (UA) Urine Ketones Urine Blood Urine Nitrite Urine Bilirubin Urine Urobilinogen Ur Leukocyte Esterase Urine WBC (Auto) U Hyaline Cast (Auto) Squamous Epi Cells Auto Urine Mucus (Auto) Urine Ascorbic Acid 12/27/19 12/28/19 12/28/19 11:09 05:00 05:00 WBC 4.2 RBC 3.10 L Hgb 9.7 L Hct 28.5 L MCV 92 MCH 31.4 MCHC 34.1 RDW 19.1 H Plt Count 130 L Lymph % (Auto) [place] % (Auto) Eos % (Auto) Baso % (Auto) Absolute Neuts (auto) Absolute Lymphs (auto) Absolute Monos (auto) Absolute Eos (auto) Absolute Basos (auto) Total Counted Seg Neutrophils % Seg Neuts % (Manual) Lymphocytes % (Manual) Atypical Lymphs % Monocytes % (Manual) Eosinophils % (Manual) Basophils % (Manual) Abs Neuts (Manual) Abs Lymphs (Manual) Abs Monocytes (Manual) Absolute Eos (Manual) Abs Basophils (Manual) Nucleated RBCs Platelet Comment Polychromasia Poikilocytosis Anisocytosis Target Cells Tear Drop Cells Ovalocytes Schistocytes D-Dimer 3.22 H Carbonic Acid HCO3/H2CO3 Ratio ABG pH ABG pCO2 ABG pO2 ABG HCO3 ABG Total CO2 ABG O2 Saturation ABG Base Excess FiO2 Sodium 134.9 L Potassium 4.1 Chloride 90 L Carbon Dioxide 42 H* Anion Gap 3 L BUN 8 Creatinine 0.55 Est GFR ( Amer) > 60 Est GFR (MDRD) Non-Af > 60 Glucose 89 Calcium 7.9 L Magnesium Total Bilirubin Direct Bilirubin Neonat Total Bilirubin Neonat Direct Bilirubin Neonat Indirect Bili AST ALT Alkaline Phosphatase Creatine Kinase CK-MB (CK-2) Troponin I NT-Pro-B Natriuret Pep Total Protein Albumin Triglycerides Cholesterol LDL Cholesterol Direct VLDL Cholesterol HDL Cholesterol TSH Free T4 Free T3 pg/mL Urine Color Urine Appearance Urine pH Ur Specific [place] Urine Protein Urine Glucose (UA) Urine Ketones Urine Blood Urine Nitrite Urine Bilirubin Urine Urobilinogen Ur Leukocyte Esterase Urine WBC (Auto) U Hyaline Cast (Auto) Squamous Epi Cells Auto Urine Mucus (Auto) Urine Ascorbic Acid Chest X-Ray 12/25/19 18:43 IMPRESSION: Severe rounded contour of the heart has increased significantly since 09/10/2019, possibly representing a moderate to large pericardial effusion. Echocardiogram may provide additional information. No acute consolidation. Venous Doppler Study 12/25/19 20:14 IMPRESSION: No DVT is identified. TECHNIQUE: LIMITATIONS: None. FINDINGS: IMPRESSION: copyright 2010 [employer]- All Rights Reserved Venous Doppler Study 12/25/19 20:14 IMPRESSION: No DVT is identified. TECHNIQUE: LIMITATIONS: None. FINDINGS: IMPRESSION: copyright 2010 [employer]- All Rights Reserved Chest/Abdomen CTA 12/27/19 00:00 IMPRESSION: 1. There are no pulmonary emboli. There is no aortic aneurysm or dissection. 2. Cardiomegaly with mild pulmonary edema superimposed upon emphysematous changes. 3. The 2 larger right pulmonary nodules have increased in size slightly. Cannot exclude neoplasm. EKG on 12/25/2019: Sinus rhythm. Poor R wave progression anterior leads. Nonspecific minor T changes anterior leads. Impression/RECOMMENDATION: 1. Nonsustained wide-complex tachycardia.. The differential diagnosis is nonsustained ventricular tachycardia versus atrial flutter with aberrancy. I favor the second since it is irregularly irregular and the P waves are different from her sinus P waves. And there seems to be more than 1 P wave. The patient has been asymptomatic, her LV ejection fraction is normal and her symptomatology does not include palpitations or dizziness or syncope. This is most likely due to the patient's magnesium being low. Would replace the patient's magnesium. 2. Hypomagnesemia: Aggressively replace the patient's magnesium . 3. Chronic right ventricle systolic failure secondary to pulmonary hypertension. At present seems to be compensated. 4. Acute exacerbation of COPD: Continue anti-COPD treatment and supplemental oxygen. CPAP/BiPAP as needed. 5. Hypertension: Patient's blood pressure is well controlled. Continue current medication 6. Moderate pulmonary hypertension: Consider amlodipine or Cardizem CD. 7. History of lung cancer: Oncology on the case 8. History of tobacco abuse: Tobacco is cessation counseling given 3 minutes spent on this. 9. History of sleep apnea: Continue CPAP at night. 10. The patient's coronary artery disease risk factors are age namely age, hypertension, and hyperlipidemia and ongoing tobacco abuse. Later once his COPD exacerbation is controlled and patient was back to baseline would recommend the patient have IV Lexiscan Cardiolite stress test. This can be done as an outpatient. Medications reviewed. Medical treatment and management plan discussed with the attending provider on the case. 60 minutes spent with patient more than 50% of time spent direct patient care. Will follow. Medications reviewed. Medical regimen management plan discussed with attending provider on the case. In view of the straightforward nurse the medical decision making is of moderate complexity. 60 minutes spent on this patient with more than 50% time spent in direct patient care. Will follow.
[2019-12-29] MEDS: ACETAMINOPHEN 325 MG TABLET PO PRN ×2 (00:21→05:13)
[2019-12-29] MEDS: IPRATROPIUM/ALBUTEROL 0.5-2.5 MG/3 ML AMPUL NEB SCH ×4 (02:22→21:00)
[2019-12-29] MEDS: PANTOPRAZOLE SODIUM 40 MG TABLET.DR PO SCH (05:03)
[2019-12-29] MEDS: HYDROXYZINE HCL 10 MG TABLET PO PRN ×2 (05:03→23:18)
[2019-12-29] MEDS: HEPARIN SOD (PORCINE) 5,000 UNIT/ML 1 ML VIAL SUBCUT SCH ×3 (05:04→22:55)
[2019-12-29 05:37] LABS: HEMATOCRIT 28.4 % (36.0-47.0); HEMOGLOBIN 9.7 g/dL (12.0-15.5); MEAN CORPUSCULAR HEMOGLOBIN 31.7 pg (27.0-33.4); MEAN CORPUSCULAR HGB CONC 34.2 g/dL (32.0-36.0); MEAN CORPUSCULAR VOLUME 93 fl (80-97); PLATELET COUNT 137 10^3/uL (150-450); RED BLOOD COUNT 3.07 10^6/uL (3.72-5.28); RED CELL DISTRIBUTION WIDTH 18.8 % (11.5-14.0); WHITE BLOOD COUNT 3.8 10^3/uL (4.0-10.5)
[2019-12-29 06:50] LABS: ANION GAP 5 (5-19); BLOOD UREA NITROGEN 9 mg/dL (7-20); CALCIUM 8.3 mg/dL (8.4-10.2); CARBON DIOXIDE 38 mmol/L (22-30); CHLORIDE 91 mmol/L (98-107); GLUCOSE 82 mg/dL (75-110); POTASSIUM 4.3 mmol/L (3.6-5.0)
[2019-12-29] MEDS: POTASSIUM CHLORIDE 10 MEQ TABLET.ER PO SCH ×3 (08:10→17:23)
[2019-12-29] MEDS: HYDROCODONE PO PRN (08:11)
[2019-12-29] MEDS: CHLORPHENIRAMINE PO PRN (08:11)
[2019-12-29] MEDS: DOCUSATE SODIUM 100 MG CAPSULE PO SCH (09:38)
[2019-12-29] MEDS: BUPRENORPHINE HCL 2 MG SUBLINGUAL TABLET SL SCH ×2 (09:40→22:54)
[2019-12-29] MEDS: GUAIFENESIN 600 MG TABLET.SA PO SCH ×3 (09:40→22:55)
[2019-12-29] MEDS: THIAMINE HCL 100 MG TABLET PO SCH (09:40)
[2019-12-29] MEDS: MULTIVITAMIN TABLET PO SCH (09:40)
[2019-12-29] MEDS: CLOPIDOGREL BISULFATE 75 MG TABLET PO SCH (09:40)
[2019-12-29] MEDS: FLUTICASONE/UMECLIDIN/VILANTER 100-62.5-25 MCG/DOSE IH SCH (09:40)
[2019-12-29] MEDS: FOLIC ACID 1 MG TABLET PO SCH (09:40)
[2019-12-29] MEDS: NYSTATIN CREAM 15 GM TP SCH ×2 (09:41→17:23)
--- NOTE | 2019-12-29 19:15 | PDOC PROGRESS REPORT ---
Subjective Subjective:: Per previous physician: "She is a 51-year-old female with past medical history of hypertension, asthma, COPD, chronic respiratory failure (on home O2 at 2 L/min), obesity, lung cancer, arthritis, gout, depression, tobacco dependency, and opiate dependent chronic pain who was admitted 12/25/2019 for acute on chronic respiratory failure with hypoxia secondary to CHF exacerbation. Patient was seen on morning rounds. She is found resting in bed, comfortably, on supplemental oxygen by nasal cannula. She is awake, A&Ox4. Reports that she is feeling much better today. She asks to keep her ProAir MDI at bedside to assist w/ dyspnea/cough. Otherwise, she has no questions or concerns. She denies fever, chills, chest pain, palpitation, orthopnea, abdominal pain, nausea vomiting and diarrhea. No concerns per nursing." 12/29/2019 Patient seems to be stable today with regards to her breathing. She still havin g some coarse cough and states that she has been having some difficulty swallowing that raises concerns for aspiration. I will consult speech therapy to see the patient and they may need to schedule a modified barium swallow. Cardiology evaluated the patient and stated they would like to have a ischemic work-up outpatient. I discussed this case in person with Dr. Davis. He still requiring BiPAP intermittently on 40% FiO2. Per oncology, her cancer looks to be about the same as previous imaging according to our CT done here. Her right foot wound is status post a debridement by general surgery. Her CTPA was negative for PE. Patient has no new complaints today. Per cardiology: "1. Nonsustained wide-complex tachycardia.. The differential diagnosis is nonsustained ventricular tachycardia versus atrial flutter with aberrancy. I favor the second since it is irregularly irregular and the P waves are different from her sinus P waves. And there seems to be more than 1 P wave. The patient has been asymptomatic, her LV ejection fraction is normal and her symptomatology does not include palpitations or dizziness or syncope. This is most likely due to the patient's magnesium being low. Would replace the patient's magnesium." Reason For Visit: ACUTE ON CHRONIC RESPIRATORY FAILURE WITH HYPOXIA Physical Exam Vital Signs: Temp Pulse Resp BP Pulse Ox 97.6 F 93 19 98/64 L 90 L 12/29/19 11:32 12/29/19 14:00 12/29/19 13:47 12/29/19 11:32 12/29/19 13:47 Intake & Output 12/28/19 12/29/19 12/30/19 06:59 06:59 06:59 Intake Total 620 820 620 Output Total 4000 1950 Balance -7410 -6540 620 Weight 84.2 kg 60.3 kg Results Laboratory Results: 12/29/19 05:00 12/29/19 05:00 12/29/19 12/29/19 05:00 05:00 WBC 3.8 L RBC 3.07 L Hgb 9.7 L Hct 28.4 L MCV 93 MCH 31.7 MCHC 34.2 RDW 18.8 H Plt Count 137 L Sodium 134.2 L Potassium 4.3 Chloride 91 L Carbon Dioxide 38 H Anion Gap 5 BUN 9 Creatinine 0.60 Est GFR ( Amer) > 60 Glucose 82 Calcium 8.3 L Magnesium 1.7 12/25/19 12/25/19 12/26/19 19:04 19:04 00:51 Creatine Kinase 57 CK-MB (CK-2) Troponin I 0.012 NT-Pro-B Natriuret Pep 1840 H 12/26/19 12/26/19 12/26/19 00:51 06:56 06:56 Creatine Kinase 49 CK-MB (CK-2) 1.47 1.29 Troponin I < 0.012 < 0.012 NT-Pro-B Natriuret Pep 12/26/19 12/26/19 12/27/19 12:26 12:26 05:40 Creatine Kinase 47 CK-MB (CK-2) 1.30 Troponin I < 0.012 NT-Pro-B Natriuret Pep 1180 H Impressions: Chest X-Ray 12/25/19 18:43 IMPRESSION: Severe rounded contour of the heart has increased significantly since 09/10/2019, possibly representing a moderate to large pericardial effusion. Echocardiogram may provide additional information. No acute consolidation. Venous Doppler Study 12/25/19 20:14 IMPRESSION: No DVT is identified. TECHNIQUE: LIMITATIONS: None. FINDINGS: IMPRESSION: copyright 2010 [employer]- All Rights Reserved Chest/Abdomen CTA 12/27/19 00:00 IMPRESSION: 1. There are no pulmonary emboli. There is no aortic aneurysm or dissection. 2. Cardiomegaly with mild pulmonary edema superimposed upon emphysematous changes. 3. The 2 larger right pulmonary nodules have increased in size slightly. Cannot exclude neoplasm. Assessment and Plan - Diagnosis (1) Acute congestive heart failure Qualifiers: Heart failure type: diastolic Qualified Code(s): I50.31 - Acute diastolic (congestive) heart failure Is this a current diagnosis for this admission?: Yes Plan: Per previous physician: Echocardiogram revealed LVEF 60% with grade 2 diastolic dysfunction, mild LVH, severely dilated right atrium, mildly dilatated right ventricle, right ventricle. Moderate tricuspid regurgitation. Moderate pulmonary hypertension. proBNP elevated 1840 CXR noted to have severe large amount of the heart CTA Chest was negative for PE; notes mild pulmonary edema in setting of emphysema Weight down 4 kg; -2.9 L fluid balance. Patient is admitted to the medical floor on continuous cardiac telemetry. Cardiology is consulted; appreciate Dr. Schultz's assistance. Spoke with Dr. Schultz today, will see patient tomorrow. Hold furosemide r/t hypotension Continue daily Plavix. It appears that patient is not on hypertensives at home; consider start of Beta maggy and AMARI/ARB prior to discharge. Cardiac diet. Fluid restricted 2L daily. Daily weights, strict I&Os Patient educator consulted." 12/29/2019 Discussed case with cardiology, Dr. Davis who stated the following: "1. Nonsustained wide-complex tachycardia.. The differential diagnosis is nonsustained ventricular tachycardia versus atrial flutter with aberrancy. I favor the second since it is irregularly irregular and the P waves are different from her sinus P waves. And there seems to be more than 1 P wave. The patient has been asymptomatic, her LV ejection fraction is normal and her symptomatology does not include palpitations or dizziness or syncope. This is most likely due to the patient's magnesium being low. Would replace the patient's magnesium. 10. The patient's coronary artery disease risk factors are age namely age, hypertension, and hyperlipidemia and ongoing tobacco abuse. Later once his COPD exacerbation is controlled and patient was back to baseline would recommend the patient have IV Lexiscan Cardiolite stress test. This can be done as an outpatient." (2) Acute on chronic respiratory failure with hypoxia Is this a current diagnosis for this admission?: Yes Plan: Per previous physician: "Improved Multifactorial secondary to CHF exacerbation and COPD in the setting of lung CA. CTA chest noted mild pulmonary edema. Diuresis mentioned above. Provide supplemental oxygen as needed to maintain oxygen saturations greater than 89%. Encourage BiPAP use Scheduled and as needed nebulizer treatments." 12/29/2019 Multifactorial: COPD, CHF, pulmonary hypertension, lung cancer Treat underlying causes using a multimodality approach Needs pulmonary rehab at discharge (3) Emphysema lung Qualifiers: Emphysema type: unspecified Qualified Code(s): J43.9 - Emphysema, unspecified Is this a current diagnosis for this admission?: Yes Plan: Per previous physician: "Supplemental oxygen BiPAP as needed to maintain saturations greater than 89%. Continue scheduled and as needed nebulizer treatments. Start Mucinex twice daily. Consider steroid therapy. Incentive spirometry and flutter valve to bedside. Encourage ambulation and out of bed 3 times daily." 12/29/2019 Needs follow-up with severity of illness coordinator outpatient Continue inhalers (4) Hypotension Is this a current diagnosis for this admission?: Yes Plan: Secondary to diuresis utilizing IV furosemide, 1 time dose of metoprolol, and home dose narcotic medications. Furosemide and metoprolol are placed on hold. Fall precautions. (5) Ulcer of right foot with fat layer exposed Is this a current diagnosis for this admission?: Yes Plan: Per previous physician: "Status post bedside debridement by Dr. Russell. Wound care per surgery's recommendations. They have signed off. No indications for antibiotic therapy at this time." 12/29/2019 Follow-up with general surgery outpatient (6) Cellulitis of right lower extremity Is this a current diagnosis for this admission?: Yes (7) Chronic venous insufficiency of lower extremity Is this a current diagnosis for this admission?: Yes Plan: Venous Doppler studies negative for DVT bilaterally. JOSELINE pulliam. (8) Lung cancer Qualifiers: Laterality: left Lung location: overlapping sites Qualified Code(s): C34.82 - Malignant neoplasm of overlapping sites of left bronchus and lung Is this a current diagnosis for this admission?: Yes Plan: Per previous physician: "Not currently receiving treatment. Previously followed by Dr. Farah; will discuss with patient who her current oncologist is. Consider heme-onc consultation." 12/28/2021 CTPA reviewed, no PE, showed possible progression of lung cancer Oncology consulted and their assessment was that patient's lung cancer had not progressed but is actually approximately the same (9) Tobacco abuse Is this a current diagnosis for this admission?: Yes Plan: Counseled to stop smoking (10) Asthma Qualifiers: Asthma severity: moderate Is this a current diagnosis for this admission?: Yes (11) Chronic back pain Qualifiers: Back pain location: back pain in unspecified location Back pain laterality: unspecified Qualified Code(s): M54.9 - Dorsalgia, unspecified; G89.29 - Other chronic pain Is this a current diagnosis for this admission?: Yes (12) Opiate dependence Qualifiers: Substance use status: uncomplicated Qualified Code(s): F11.20 - Opioid dependence, uncomplicated Is this a current diagnosis for this admission?: Yes (13) Hypomagnesemia Is this a current diagnosis for this admission?: Yes Plan: Repleting - Time Time Spent with patient: 25-34 minutes Medications reviewed and adjusted accordingly: Yes Anticipated Discharge Disposition: Half-Way Facility Anticipated Discharge Timeframe: within 48 hours - Inpatient Certification Based on my medical assessment, after consideration of the patient's comorbidities, presenting symptoms, or acuity I expect that the services needed warrant INPATIENT care.: Yes I certify that my determination is in accordance with my understanding of Medicare's requirements for reasonable and necessary INPATIENT services [42 CFR 412.3e].: Yes Medical Necessity: Significant Comorbidiites Make Outpatient Treatment Too Risky, Need Close Monitoring Due to Risk of Patient Decompensation, Risk of Complication if Not Cared For in Hospital, Risk of Diagnosis Which Will Require Inpatient Eval/Care/Monitoring
--- NOTE | 2019-12-29 20:39 | Progress Note ---
Provider Note Provider Note: cardiology PROGRESS NOTE by Dr. Cassandra Davis on 12/29/2019. SUBJECTIVE: No further episodes of wide-complex tachycardia. The patient is much improved and she is now on nasal cannula and off this BiPAP. There is no further wheezing. She denies any chest pain or discomfort. There is no atrial arrhythmias or ventricular arrhythmias seen on the monitor. Her leg edema is only trace at present. PHYSICAL EXAMINATION: The patient is well-built in no acute distress. Selected Entries 12/29/19 16:40 Temperature 97.7 F Temperature Oral Source Pulse Rate 93 Respiratory 19 Rate Blood Pressure 92/57 L Blood Pressure 68 Mean BP Location Left Arm BP Position Supine O2 Sat by Pulse 91 L Oximetry Oxygen Flow 5.00 Rate Oxygen Delivery Nasal Cannula Method HEAD: Head is atraumatic and normocephalic. EYES: Pupils are equal round regular reactive to light accommodation. Extraocular movements are normal, there is no conjunctival pallor, and no scleral icterus. EARS: Tympanic membranes are intact external auditory canals are clear. NOSE: There is no in flammation of the nasal mucous membrane there is no deviated nasal septum. MOUTH: Mucous membranes of mouth and tongue are moist, there is no ulcers in the mouth or tongue, and no bleeding from the gums. THROAT: There is no redness of the oropharynx, no exudate seen. SKIN: There is no petechia or ecchymosis. There is no rashes or lesions. NECK: Supple. There is no JVD. Carotids are equal there is no bruit. There is no lymphadenopathy. There is no goiter. Trachea central LUNGS: There is diminished air entry and prolonged expiration. On percussion there is hyperresonance. There is no chest wall tenderness. There is a few scattered rhonchi. But no wheezing. There is no rales of CHF. HEART: S1 and S2 are heard. S1 is of normal intensity, there is no S3 or S4 gallops. There is a systolic murmur the left sternal border and the apex. There is no rub. ABDOMEN: Normoactive bowel sounds, soft, nontender, no masses, no rebound, no guarding. There is no hepatosplenomegaly. EXTREMITIES: Femorals are slightly diminished. There is no femoral bruits. Leg pulses are diminished. There is trace to mild pedal edema, with chronic venous stasis dermatitis changes.. There is no DVT or cellulitis. There is no cyanosis or clubbing. There is no calf tenderness. NEUROLOGICAL the patient is awake alert oriented 3 with no focal deficits. PSYCHIATRIC: The patient judgment and insight are intact his affect is normal Labs- All tests 24 hr 12/29/19 12/29/19 05:00 05:00 WBC 3.8 L RBC 3.07 L Hgb 9.7 L Hct 28.4 L MCV 93 MCH 31.7 MCHC 34.2 RDW 18.8 H Plt Count 137 L Sodium 134.2 L Potassium 4.3 Chloride 91 L Carbon Dioxide 38 H Anion Gap 5 BUN 9 Creatinine 0.60 Est GFR ( Amer) > 60 Est GFR (MDRD) Non-Af > 60 Glucose 82 Calcium 8.3 L Magnesium 1.7 Chest X-Ray 12/25/19 18:43 IMPRESSION: Severe rounded contour of the heart has increased significantly since 09/10/2019, possibly representing a moderate to large pericardial effusion. Echocardiogram may provide additional information. No acute consolidation. Venous Doppler Study 12/25/19 20:14 IMPRESSION: No DVT is identified. TECHNIQUE: LIMITATIONS: None. FINDINGS: IMPRESSION: copyright 2010 [employer]- All Rights Reserved Venous Doppler Study 12/25/19 20:14 IMPRESSION: No DVT is identified. TECHNIQUE: LIMITATIONS: None. FINDINGS: IMPRESSION: copyright 2010 [employer]- All Rights Reserved Chest/Abdomen CTA 12/27/19 00:00 IMPRESSION: 1. There are no pulmonary emboli. There is no aortic aneurysm or dissection. 2. Cardiomegaly with mild pulmonary edema superimposed upon emphysematous changes. 3. The 2 larger right pulmonary nodules have increased in size slightly. Cannot exclude neoplasm. Impression/RECOMMENDATION: 1. Nonsustained wide-complex tachycardia.. The differential diagnosis is nonsustained ventricular tachycardia versus atrial flutter with aberrancy. I favor the second since it is irregularly irregular and the P waves are different from her sinus P waves. And there seems to be more than 1 P wave. The patient has been asymptomatic, her LV ejection fraction is normal and her symptomatology does not include palpitations or dizziness or syncope. This is most likely due to the patient's magnesium being low. Would replace the patient's magnesium. 2. Hypomagnesemia: Aggressively replace the patient's magnesium . 3. Chronic right ventricle systolic failure secondary to pulmonary hypertension. At present seems to be compensated. 4. Acute exacerbation of COPD: Continue anti-COPD treatment and supplemental oxygen. CPAP/BiPAP as needed. 5. Hypertension: Patient's blood pressure is well controlled. Continue current medication 6. Moderate pulmonary hypertension: Consider amlodipine or Cardizem CD. 7. History of lung cancer: Oncology on the case 8. History of tobacco abuse: Tobacco is cessation counseling given 3 minutes spent on this. 9. History of sleep apnea: Continue CPAP at night. 10. The patient's coronary artery disease risk factors are age namely age, hypertension, and hyperlipidemia and ongoing tobacco abuse. Later once his COPD exacerbation is controlled and patient was back to baseline would recommend the patient have IV Lexiscan Cardiolite stress test. This can be done as an outpatient. Medications reviewed. Medical regimen and management plan discussed with provider of the case. Medical decision making of moderate complexity. 40 minutes spent with patient more than 50% of time spent in direct patient care. Will follow.
[2019-12-30] MEDS: CHLORPHENIRAMINE PO PRN ×3 (00:25→21:44)
[2019-12-30] MEDS: HYDROCODONE PO PRN ×3 (00:25→21:44)
[2019-12-30] MEDS: IPRATROPIUM/ALBUTEROL 0.5-2.5 MG/3 ML AMPUL NEB SCH ×4 (02:16→21:00)
[2019-12-30] MEDS: PANTOPRAZOLE SODIUM 40 MG TABLET.DR PO SCH (06:01)
[2019-12-30] MEDS: ALBUTEROL SULFATE HFA (90 MCG/PUFF) 8 GM MDI IH PRN (06:02)
[2019-12-30] MEDS: HEPARIN SOD (PORCINE) 5,000 UNIT/ML 1 ML VIAL SUBCUT SCH ×3 (06:02→21:12)
[2019-12-30] MEDS: ACETAMINOPHEN 325 MG TABLET PO PRN ×2 (06:07→14:41)
[2019-12-30] MEDS: POTASSIUM CHLORIDE 10 MEQ TABLET.ER PO SCH ×3 (07:42→17:34)
--- NOTE | 2019-12-30 07:53 | PDOC PROGRESS REPORT ---
Subjective Progress Note for:: 12/30/19 Subjective:: Patient seems a little bit better Reason For Visit: ACUTE ON CHRONIC RESPIRATORY FAILURE WITH HYPOXIA Physical Exam Vital Signs: Temp Pulse Resp BP Pulse Ox 98.2 F 88 17 97/66 L 96 12/30/19 03:37 12/30/19 03:37 12/30/19 03:37 12/30/19 03:37 12/30/19 04:54 Intake & Output 12/29/19 12/30/19 12/31/19 06:59 06:59 06:59 Intake Total 820 841 Output Total 1950 1850 Balance -1130 -1009 Weight 60.3 kg 60.3 kg General appearance: PRESENT: no acute distress, well-developed, well-nourished Head exam: PRESENT: atraumatic, normocephalic Eye exam: PRESENT: conjunctiva pink, EOMI, PERRLA. ABSENT: scleral icterus Ear exam: PRESENT: normal external ear exam Mouth exam: PRESENT: moist, tongue midline Neck exam: ABSENT: carotid bruit, JVD, lymphadenopathy, thyromegaly Respiratory exam: PRESENT: clear to auscultation javier. ABSENT: rales, rhonchi, wheezes Cardiovascular exam: PRESENT: RRR. ABSENT: diastolic murmur, rubs, systolic mur mur Pulses: PRESENT: normal dorsalis pedis pul Vascular exam: PRESENT: normal capillary refill GI/Abdominal exam: PRESENT: normal bowel sounds, soft. ABSENT: distended, guarding, mass, organolmegaly, rebound, tenderness Rectal exam: PRESENT: deferred Extremities exam: PRESENT: full ROM. ABSENT: calf tenderness, clubbing, pedal edema Neurological exam: PRESENT: alert, awake, oriented to person, oriented to place, oriented to time, oriented to situation, CN II-XII grossly intact. ABSENT: motor sensory deficit Psychiatric exam: PRESENT: appropriate affect, normal mood. ABSENT: homicidal ideation, suicidal ideation Skin exam: PRESENT: dry, intact, warm. ABSENT: cyanosis, rash Results Laboratory Results: 12/29/19 05:00 12/29/19 05:00 12/25/19 12/25/19 12/26/19 19:04 19:04 00:51 Creatine Kinase 57 CK-MB (CK-2) Troponin I 0.012 NT-Pro-B Natriuret Pep 1840 H 12/26/19 12/26/19 12/26/19 00:51 06:56 06:56 Creatine Kinase 49 CK-MB (CK-2) 1.47 1.29 Troponin I < 0.012 < 0.012 NT-Pro-B Natriuret Pep 12/26/19 12/26/19 12/27/19 12:26 12:26 05:40 Creatine Kinase 47 CK-MB (CK-2) 1.30 Troponin I < 0.012 NT-Pro-B Natriuret Pep 1180 H Impressions: Chest X-Ray 12/25/19 18:43 IMPRESSION: Severe rounded contour of the heart has increased significantly since 09/10/2019, possibly representing a moderate to large pericardial effusion. Echocardiogram may provide additional information. No acute consolidation. Venous Doppler Study 12/25/19 20:14 IMPRESSION: No DVT is identified. TECHNIQUE: LIMITATIONS: None. FINDINGS: IMPRESSION: copyright 2010 [employer]- All Rights Reserved Chest/Abdomen CTA 12/27/19 00:00 IMPRESSION: 1. There are no pulmonary emboli. There is no aortic aneurysm or dissection. 2. Cardiomegaly with mild pulmonary edema superimposed upon emphysematous changes. 3. The 2 larger right pulmonary nodules have increased in size slightly. Cannot exclude neoplasm. Assessment & Plan - Diagnosis (1) Lung cancer Qualifiers: Laterality: left Lung location: overlapping sites Qualified Code(s): C34.82 - Malignant neoplasm of overlapping sites of left bronchus and lung Is this a current diagnosis for this admission?: Yes Plan: She will need follow-up in our office in about 2 months. - Time Time Spent with patient: 15-24 minutes
[2019-12-30] MEDS: GUAIFENESIN 600 MG TABLET.SA PO SCH ×2 (09:15→21:17)
[2019-12-30] MEDS: DOCUSATE SODIUM 100 MG CAPSULE PO SCH (09:15)
[2019-12-30] MEDS: THIAMINE HCL 100 MG TABLET PO SCH (09:15)
[2019-12-30] MEDS: FLUTICASONE/UMECLIDIN/VILANTER 100-62.5-25 MCG/DOSE IH SCH (09:16)
[2019-12-30] MEDS: FOLIC ACID 1 MG TABLET PO SCH (09:16)
[2019-12-30] MEDS: BUPRENORPHINE HCL 2 MG SUBLINGUAL TABLET SL SCH ×2 (09:16→21:17)
[2019-12-30] MEDS: MULTIVITAMIN TABLET PO SCH (09:16)
[2019-12-30] MEDS: CLOPIDOGREL BISULFATE 75 MG TABLET PO SCH (09:16)
[2019-12-30] MEDS: NYSTATIN CREAM 15 GM TP SCH ×2 (09:16→17:39)
[2019-12-30] MEDS: HYDROXYZINE HCL 10 MG TABLET PO PRN ×2 (09:34→17:34)
--- NOTE | 2019-12-30 11:01 | ST Inp Modified Barium Swallow ---
Medical Diagnosis - Medical Diagnoses Medical Diagnosis Description & ICD-10 Code(s): acute CHF - ICD-10 Tx Diagnosis Coding (1) Dysphagia, unspecified ICD-10 Code(s): R13.10 - DYSPHAGIA, UNSPECIFIED ST Inpatient [facility] [place] - General Date: 12/30/19 Date of Onset: 12/02/19 - approximate onset date - History -: Medical - per EMR: patient admitted 12/24 due to dyspnea worsening for 1 week. Patient also experiencing swelling of lower extremities. Prior medical history includes chronic respiratory failure, lung cancer, asthma, COPD, bronchitis, GERD. Physician note from 12/28 reported some difficulty swallowing, prompting clinicial swallow assessment with speech pathology. At bedside, patient demonstrated immediate cough with all trials (ice, thin, solid). MBSS then recommended to further assess pharyngeal phase swallowing. Medications: Medications Reviewed Allergies: Refer to medical record - Subjective Current Nutritional Means: PO Current PO Diet: Regular Current Symptoms: Coughing Pain: Patient reports, 1/5 - right leg pain - Objective Assessment: Upright, Left Lateral - Food Trials Food Trials Used: Thin liquids, Pureed, Regular The Patient: Was Able to Self Feed - Assessment Labial Function: Within Normal Limits Lingual Function: Within Normal Limits Mandibular Function: Within Normal Limits Velo-Pharyngeal Function: Unremarkable - high palate observed on oral exam Laryngeal Function: hoarse - Pharyngeal Stage Initiation of Pharyngeal Stage: Delayed - delay varied, however, was up to 12 seconds Decreased Laryngeal Elevation: No Reduced Velo-Pharyngeal Closure: no Reduced Pressure Generation: Yes Pre-Swallowing Pooling in Valleculae: Significant Pre-Swallowing Pooling in Pyriforms: Moderate Multiple Swallows With: Effective - required cue for second swallow Post Swallow Residuals in Valleculae: Significant Post Swallow Residuals in Pyriforms: Mild - Impression/Summary Laryngeal Penetration: Yes - penetration seen with all trial textures before and during the swallow, at times to the level of the vocal folds. Cough reaction se en Tracheal Aspiration: yes - aspiration seen x1 with mixed residuals from valleculae Productive Cough: Yes Effective Compensatory Strategies: throat clear & reswallow, hard swallow Patient Presents With: Pharyngeal stage dysph. - moderate Risk of Aspiration: Moderate Risk Due To: Patient presents with significant delay in swallowing reflex, as well as significant residue in pharynx after the swallow with poor sensation/management of residue. This was seen with all trial textures given. Bolus was seen to enter pharynx well before swallow initiation, leading to penetration before the swallow. This usually cleared out of the laryngeal vestibule when the swallow triggered. Twice the penetration was seen to reach the vocal folds, then be expelled on the swallow (thin, pudding), aspiration seen x1 with mixed residuals after the swallow. Patient with significant residue in valleculae after the swallow. Patient reported that she felt the bolus "didn't go all down", but did not spontaneously complete a second swallow to clear. Dry swallow typically eliminated or greatly reduced residue. - Recommendations Solid Diet Recommendations: Regular Liquid Diet Recommendations: Thin Strict Aspitarion Precautions: Yes Dysphagia Therapy with HOME MORTGAGE DISCLOSURE ACT SPECIALIST: Yes - after hospital discharge, dysphagia therapy is indicated Recommended Techniques: Fully Upright During Meal, Dry Swallow After Bite - Educated patient on results of swallow study, as well as recommendations for dysphagia therapy and current strategies to use., Small Bites and Sips Other Recommendations: No diet changes indicated at this time, as the patient's risk of aspiration was not mitigated by texture changes. - Time Total Time: 30 Total Timed Minutes: 30
[2019-12-30 11:14] LABS: POTASSIUM 4.5 mmol/L (3.6-5.0)
--- NOTE | 2019-12-30 14:50 | RADIOLOGY REPORT (SQ) ---
EXAM DESCRIPTION: COOKIE SWALLOW IMAGES COMPLETED DATE/TIME: 12/30/2019 10:48 am REASON FOR STUDY: coughing with PO COMPARISON: None. TECHNIQUE: Videofluoroscopic swallowing examination was performed in conjunction with speech patholo gy. Videofluoroscopic imaging was obtained and reviewed and these are the findings: RADIATION DOSE: Fluoro time 3.4 minutes 1 images saved to PACS. LIMITATIONS: None FINDINGS: The patient was brought into the fluoro room and placed upright on a modified barium swall ow chair. The patient was then given multiple consistencies mixed with barium to swallow under live fluoroscopic video guidance. According to the Speech Pathologist there was trace aspiration seen wit h thin barium. Laryngeal penetration was seen with pureed consistencies and from residuals. Please r efer to the speech pathology report for further details. IMPRESSION: TRACE ASPIRATION WITH THIN BARIUM. PLEASE SEE SPEECH PATHOLOGIST REPORT FOR OTHER FINDIN GS AND RECOMMENDATIONS. COMMENT: None Quality ID [id number]: Final reports for procedures using fluoroscopy that document radiation exposure bernie sandy, or exposure time and number of fluorographic images (if radiation exposure indices are not avail able) TECHNICAL DOCUMENTATION: JOB ID: [id number] 2010 [employer]- All Rights Reserved Reading location - IP/workstation name: [id number]
--- NOTE | 2019-12-30 15:29 | RADIOLOGY REPORT (SQ) ---
EXAM DESCRIPTION: CT HEAD WITHOUT IMAGES COMPLETED DATE/TIME: 12/30/2019 3:07 pm REASON FOR STUDY: dysphagia of unknown etiology (prior stroke?) COMPARISON: None. TECHNIQUE: Axial images acquired through the brain without intravenous contrast. Images reviewed wi th bone, brain and subdural windows. Additional sagittal and coronal reconstructions were generated. Images stored on PACS. All CT scanners at this facility use dose modulation, iterative reconstruction, and/or weight based d osing when appropriate to reduce radiation dose to as low as reasonably achievable (ALARA). [facility]: Dose Right [facility]: CareDose [facility]: Dose Right [facility]: Teradose 4D [facility]: AUM Cardiovascular RADIATION DOSE: CT Rad equipment meets quality standard of care and radiation dose reduction techniq ues were employed. CTDIvol: 48.6 mGy. DLP: 880 mGy-cm. mGy. LIMITATIONS: None. FINDINGS: VENTRICLES: Normal in size and configuration. CEREBRUM: No masses. No hemorrhage. No midline shift. Areas of low density in the white matter mos t likely due to chronic micro-vascular ischemic change. No evidence for acute infarction. CEREBELLUM: No masses. No hemorrhage. No alteration of density. No evidence for acute infarction. EXTRAAXIAL SPACES: Mild age-related involutional change. No fluid collections. No masses. ORBITS AND GLOBE: No intra- or extraconal masses. Normal contour of globe without masses. CALVARIUM: No fracture. PARANASAL SINUSES: Pansinusitis. SOFT TISSUES: No mass or hematoma. OTHER: No other significant finding. IMPRESSION: Mild small-vessel ischemic change with subtle decreased attenuation in the periventricul ar white matter. No acute findings. Pansinusitis. EVIDENCE OF ACUTE STROKE: NO. TECHNICAL DOCUMENTATION: JOB ID: [id number] Quality ID # [id number]: Final reports with documentation of one or more dose reduction techniques (e.g., Au tomated exposure control, adjustment of the mA and/or kV according to patient size, use of iterative reconstruction technique) 2010 [employer]- All Rights Reserved Reading location - IP/workstation name: [email or web address]
--- NOTE | 2019-12-30 20:26 | PDOC PROGRESS REPORT ---
Subjective Progress Note for:: 12/30/19 Subjective:: She is feeling better. O2 needs decreasing. Reason For Visit: ACUTE ON CHRONIC RESPIRATORY FAILURE WITH HYPOXIA Physical Exam Vital Signs: Temp Pulse Resp BP Pulse Ox 97.8 F 89 18 91/45 L 94 12/30/19 11:42 12/30/19 14:33 12/30/19 14:33 12/30/19 11:42 12/30/19 14:33 Intake & Output 12/29/19 12/30/19 12/31/19 06:59 06:59 06:59 Intake Total 820 841 Output Total 1950 1850 500 Balance -8448 -1006 -500 Weight 60.3 kg 60.3 kg General appearance: PRESENT: no acute distress Head exam: PRESENT: atraumatic Eye exam: ABSENT: scleral icterus Mouth exam: ABSENT: dry mucosa Neck exam: ABSENT: JVD Respiratory exam: PRESENT: clear to auscultation javier, unlabored. ABSENT: accessory muscle use Cardiovascular exam: PRESENT: RRR GI/Abdominal exam: PRESENT: normal bowel sounds, soft Rectal exam: PRESENT: deferred Extremities exam: ABSENT: pedal edema Neurological exam: PRESENT: alert, awake Psychiatric exam: PRESENT: appropriate affect Results Laboratory Results: 12/29/19 05:00 12/30/19 09:30 12/30/19 09:30 Potassium 4.5 Magnesium 1.7 12/25/19 12/25/19 12/26/19 19:04 19:04 00:51 Creatine Kinase 57 CK-MB (CK-2) Troponin I 0.012 NT-Pro-B Natriuret Pep 1840 H 12/26/19 12/26/19 12/26/19 00:51 06:56 06:56 Creatine Kinase 49 CK-MB (CK-2) 1.47 1.29 Troponin I < 0.012 < 0.012 NT-Pro-B Natriuret Pep 12/26/19 12/26/19 12/27/19 12:26 12:26 05:40 Creatine Kinase 47 CK-MB (CK-2) 1.30 Troponin I < 0.012 NT-Pro-B Natriuret Pep 1180 H Impressions: Chest X-Ray 12/25/19 18:43 IMPRESSION: Severe rounded contour of the heart has increased significantly since 09/10/2019, possibly representing a moderate to large pericardial effusion. Echocardiogram may provide additional information. No acute consolidation. Venous Doppler Study 12/25/19 20:14 IMPRESSION: No DVT is identified. TECHNIQUE: LIMITATIONS: None. FINDINGS: IMPRESSION: copyright 2010 [employer]- All Rights Reserved Chest/Abdomen CTA 12/27/19 00:00 IMPRESSION: 1. There are no pulmonary emboli. There is no aortic aneurysm or dissection. 2. Cardiomegaly with mild pulmonary edema superimposed upon emphysematous changes. 3. The 2 larger right pulmonary nodules have increased in size slightly. Cannot exclude neoplasm. Head CT 12/30/19 00:00 IMPRESSION: Mild small-vessel ischemic change with subtle decreased attenuation in the periventricular white matter. No acute findings. Pansinusitis. EVIDENCE OF ACUTE STROKE: NO. Modified Barium Swallow 12/30/19 00:00 IMPRESSION: TRACE ASPIRATION WITH THIN BARIUM. PLEASE SEE SPEECH PATHOLOGIST REPORT FOR OTHER FINDINGS AND RECOMMENDATIONS. Assessment and Plan - Plan Summary Summary: 51-year-old female with PMH of hypertension, COPD on 2L home O2, obesity, lung cancer, tobacco dependency who was admitted 12/25/2019 for acute on chronic respiratory failure with hypoxia secondary to CHF exacerbation. Concern for Chronic Aspiration: unclear etiology - underwent OBSERVER GRAVITY PROSPECTING evaluation with MBS on 12/29 showing significant delay in swallowing reflex, as well as significant residue in pharynx after the swallow with poor sensation/management of residue. This was seen with all trial textures given. - Head CT on 12/29 showed mild small vessel ischemic changes but no evidence of large CVA and she has no other neurological deficits - aspiration precautions repeatedly taught to patient Acute on Chronic Hypoxemic Respiratory Failure: improving, now on 3 L O2 via NC - was due to CHF exacerbation and improved with diuresis - no evidence of PE or PNA on chest imaging this hospitalization Acute on Chronic CHF Exacerbation: TTE revealed LVEF 60% with grade 2 diastolic dysfunction, mild LVH, severely dilated RA, mildly dilatated RV, moderate tricuspid regurgitation and moderate pulmonary hypertension. - cardiology consulted chronic right dorsal foot wound - s/p debridement by Dr. Russell 12/26/19 - outpatient wound care follow up recommended - elevate extremity Alcohol Abuse - encourage cessation - no evidence of withdrawal this hospitalization Tobacco Abuse - encourage cessation - nicotine patches PRN NSVT due to Hypomagnesemia - cardiology consulted - telemetry - resolved with Mg repletion Lung Cancer - outpatient Oncology follow up - Time Time Spent with patient: 35 or more minutes Anticipated Discharge Disposition: Home, Self Care Anticipated Discharge Timeframe: within 24 hours
--- NOTE | 2019-12-30 21:16 | Progress Note ---
Provider Note Provider Note: CARDIOLOGY PROGRESS NOTE by Dr. Armaan Davis on 12/30/2019. morrison Patient does have intermittent shortness of breath and has cough and fatigue swallows and eats and hence there is a question of aspiration. Aspiration work- up is being done. She denies any chest pain or discomfort. There is no PND orthopnea. She has only trace leg edema. There is no further wide-complex tachycardia seen. Her magnesium level is now normal. PHYSICAL EXAMINATION: The patient is well-built in no acute distress. Selected Entries 12/30/19 12/30/19 11:42 14:33 Temperature 97.8 F Temperature Oral Source Pulse Rate 77 Respiratory 24 H 18 Rate Blood Pressure 91/45 L Blood Pressure 60 Mean BP Location Left Arm BP Position Sitting O2 Sat by Pulse 82 L 94 Oximetry Oxygen Flow 2.00 4 Rate Oxygen Delivery Nasal Cannula Method HEAD: Head is atraumatic and normocephalic. EYES: Pupils are equal round regular reactive to light accommodation. Extraocular movements are normal, there is no conjunctival pallor, and no scleral icterus. EARS: Tympanic membranes are intact external auditory canals are clear. NOSE: There is no inflammation of the nasal mucous membrane there is no deviated nasal septum. MOUTH: Mucous membranes of mouth and tongue are moist, there is no ulcers in the mouth or tongue, and no bleeding from the gums. THROAT: There is no redness of the oropharynx, no exudate seen. SKIN: There is no petechia or ecchymosis. There is no rashes or lesions. NECK: Supple. There is no JVD. Carotids are equal there is no bruit. There is no lymphadenopathy. There is no goiter. Trachea central LUNGS: There is diminished air entry and prolonged expiration. On percussion there is hyperresonance. There is no chest wall tenderness. There is a few scattered rhonchi. But no wheezing. There is no rales of CHF. HEART: S1 and S2 are heard. S1 is of normal intensity, there is no S3 or S4 gallops. There is a systolic murmur the left sternal border and the apex. There is no rub. ABDOMEN: Normoactive bowel sounds, soft, nontender, no masses, no rebound, no guarding. There is no hepatosplenomegaly. EXTREMITIES: Femorals are slightly diminished. There is no femoral bruits. Leg pulses are diminished. There is trace to mild pedal edema, with chronic venous stasis dermatitis changes.. There is no DVT or cellulitis. There is no cyanosis or clubbing. There is no calf tenderness. NEUROLOGICAL the patient is awake alert oriented 3 with no focal deficits. PSYCHIATRIC: The patient judgment and insight are intact his affect is normal. Labs- All tests 24 hr 12/30/19 09:30 Potassium 4.5 Magnesium 1.7 Chest X-Ray 12/25/19 18:43 IMPRESSION: Severe rounded contour of the heart has increased significantly since 09/10/2019, possibly representing a moderate to large pericardial effusion. Echocardiogram may provide additional information. No acute consolidation. Venous Doppler Study 12/25/19 20:14 IMPRESSION: No DVT is identified. TECHNIQUE: LIMITATIONS: None. FINDINGS: IMPRESSION: copyright 2010 [employer]- All Rights Reserved Venous Doppler Study 12/25/19 20:14 IMPRESSION: No DVT is identified. TECHNIQUE: LIMITATIONS: None. FINDINGS: IMPRESSION: copyright 2010 [employer]- All Rights Reserved Chest/Abdomen CTA 12/27/19 00:00 IMPRESSION: 1. There are no pulmonary emboli. There is no aortic aneurysm or dissection. 2. Cardiomegaly with mild pulmonary edema superimposed upon emphysematous changes. 3. The 2 larger right pulmonary nodules have increased in size slightly. Cannot exclude neoplasm. IMPRESSION/RECOMMENDATION: 1. Nonsustained wide-complex tachycardia.. The differential diagnosis is nonsustained ventricular tachycardia versus atrial flutter with aberrancy. I favor the second since it is irregularly irregular and the P waves are different from her sinus P waves. And there seems to be more than 1 P wave. The patient has been asymptomatic, her LV ejection fraction is normal and her symptomatology does not include palpitations or dizziness or syncope. This is most likely due to the patient's magnesium being low. Would replace the patient's magnesium. 2. Hypomagnesemia: Aggressively replace the patient's magnesium . 3. Chronic right ventricle systolic failure secondary to pulmonary hypertension. At present seems to be compensated. 4. Acute exacerbation of COPD: Continue anti-COPD treatment and supplemental oxygen. CPAP/BiPAP as needed. 5. Hypertension: Patient's blood pressure is well controlled. Continue current medication 6. Moderate pulmonary hypertension: Consider amlodipine or Cardizem CD. 7. History of lung cancer: Oncology on the case 8. History of tobacco abuse: Tobacco is cessation counseling given 3 minutes spent on this. 9. History of sleep apnea: Continue CPAP at night. 10. Suspected aspiration. Patient having a aspiration work-up 11. The patient's coronary artery disease risk factors are age namely age, hypertension, and hyperlipidemia and ongoing tobacco abuse. Later once his COPD exacerbation is controlled and patient was back to baseline would recommend the patient have IV Lexiscan Cardiolite stress test. This can be done as an outpatient. Medications reviewed. Medical regimen and management plan discussed with provider of the case. Medical decision making of moderate complexity. 40 minutes spent with patient more than 50% of time spent in direct patient care. Will follow.
[2019-12-30] MEDS ORDERED: MAGNESIUM SULFATE 4 GM/100 ML RTUPB IV ONE (22:00)
[2019-12-31] MEDS: HEPARIN SOD (PORCINE) 5,000 UNIT/ML 1 ML VIAL SUBCUT SCH ×2 (05:19→14:08)
[2019-12-31] MEDS: PANTOPRAZOLE SODIUM 40 MG TABLET.DR PO SCH (05:32)
[2019-12-31] MEDS: IPRATROPIUM/ALBUTEROL 0.5-2.5 MG/3 ML AMPUL NEB SCH ×3 (06:01→14:48)
[2019-12-31] MEDS: ALBUTEROL SULFATE HFA (90 MCG/PUFF) 8 GM MDI IH PRN (06:48)
[2019-12-31] MEDS: ACETAMINOPHEN 325 MG TABLET PO PRN ×3 (08:05→16:18)
[2019-12-31] MEDS: BUPRENORPHINE HCL 2 MG SUBLINGUAL TABLET SL SCH (09:37)
[2019-12-31] MEDS: DOCUSATE SODIUM 100 MG CAPSULE PO SCH (09:38)
[2019-12-31] MEDS: FOLIC ACID 1 MG TABLET PO SCH (09:38)
[2019-12-31] MEDS: POTASSIUM CHLORIDE 10 MEQ TABLET.ER PO SCH ×2 (09:38→12:24)
[2019-12-31] MEDS: THIAMINE HCL 100 MG TABLET PO SCH (09:38)
[2019-12-31] MEDS: MULTIVITAMIN TABLET PO SCH (09:38)
[2019-12-31] MEDS: CLOPIDOGREL BISULFATE 75 MG TABLET PO SCH (09:38)
[2019-12-31] MEDS: GUAIFENESIN 600 MG TABLET.SA PO SCH (09:38)
[2019-12-31] MEDS: FLUTICASONE/UMECLIDIN/VILANTER 100-62.5-25 MCG/DOSE IH SCH (09:40)
[2019-12-31] MEDS: NYSTATIN CREAM 15 GM TP SCH (09:40)
[2019-12-31] MEDS: CHLORPHENIRAMINE PO PRN (12:52)
[2019-12-31] MEDS: HYDROCODONE PO PRN (12:52)
[2019-12-31 15:24] VITALS: BP 80/62
[2019-12-31] MEDS: HYDROXYZINE HCL 10 MG TABLET PO PRN (16:19)
--- NOTE | 2019-12-31 19:33 | PDOC DISCHARGE SUMMARY ---
Impression - Admit/DC Date/PCP Admission Date/Primary Care Provider: 12/25/19 22:00 GALA FINNEY MD Discharge Date: 12/31/19 - Discharge Diagnosis (1) Acute congestive heart failure Is this a current diagnosis for this admission?: Yes (2) Acute on chronic respiratory failure with hypoxia Is this a current diagnosis for this admission?: Yes (3) Chronic venous insufficiency of lower extremity Is this a current diagnosis for this admission?: Yes (4) Dysphagia, unspecified Is this a current diagnosis for this admission?: Yes (5) Emphysema lung Is this a current diagnosis for this admission?: Yes (6) Lung cancer Is this a current diagnosis for this admission?: Yes (7) Non-compliance Is this a current diagnosis for this admission?: Yes (8) Tobacco abuse Is this a current diagnosis for this admission?: Yes (9) Ulcer of right foot with fat layer exposed Is this a current diagnosis for this admission?: Yes (10) Ventricular tachycardia (paroxysmal) Is this a current diagnosis for this admission?: Yes - Assessment Summary: 51-year-old female with PMH of hypertension, COPD on 2L home O2, obesity, lung cancer, tobacco dependency who was admitted 12/25/2019 for acute on chronic resp iratory failure with hypoxia secondary to CHF exacerbation. Concern for Chronic Aspiration: unclear etiology. She underwent JOINER APPRENTICE evaluation with MBS on 12/29 showing significant delay in swallowing reflex, as well as significant residue in pharynx after the swallow with poor sensation/management of residue. This was seen with all trial textures given. Head CT on 12/29 showed mild small vessel ischemic changes but no evidence of large CVA and she has no other neurological deficits. Aspiration precautions repeatedly taught to patient and she received instruction on swallowing exercises. She was referred to outpatient JOINER APPRENTICE for ongoing therapy. Acute on Chronic Hypoxemic Respiratory Failure: was due to CHF exacerbation and improved with diuresis. She had no evidence of PE or PNA on chest imaging this hospitalization. Acute on Chronic CHF Exacerbation: TTE revealed LVEF 60% with grade 2 diastolic dysfunction, mild LVH, severely dilated RA, mildly dilatated RV, moderate tricuspid regurgitation and moderate pulmonary hypertension. Cardiology consulted and she was diuresed. She will need close outpatient cardiology follow up for outpatient stress test. chronic right dorsal foot wound: s/p debridement by Dr. Russell on 12/26/19. Outpatient wound care follow up recommended. Alcohol Abuse: cessation counseling provided. She had no evidence of withdrawal this hospitalization. Tobacco Abuse: cessation counseling provided. NSVT due to Hypomagnesemia: cardiology consulted. Resolved with Mg repletion. Lung Cancer: stable on imaging this hospitalization. Oncology consulted and recommended outpatient Oncology follow up. Noncompliance: She has frequent hospitalizations due to noncompliance with medications and missing multiple outpatient appointments. Family meeting held to discuss this with her family, who report that they take time off of work to take her to appointments, but sometimes she refuses to go or cancels her appointments without telling them in advance. We came up with a plan for her to begin managing her appointments, and her brother (who lives with them and is a MANAGER [employer]ING) to start managing her medications. She unfortunately can not get Home Health due to insurance purposes. She is at high risk for future re-hospitalizations. - Additional Information Resuscitation Status: Full Code Discharge Diet: Cardiac Discharge Activity: Activity As Tolerated, Balance Activity w/Rest, No tub bath, Weigh Daily Referrals: WOUND CARE [Outside] - 01/14/20 1:00 pm GALA FINNEY MD [Primary Care Provider] - 01/10/20 3:15 pm (8 weeks.) TAMIKO SIDDIQUI MD [ACTIVE STAFF] - 01/09/20 11:45 am Prescriptions: Potassium Chloride [Klor-Con 10 Meq Tablet ER] 20 meq PO BID #60 tablet.er Furosemide [Lasix 20 mg Tablet] 20 mg PO DAILYP PRN #30 tablet PRN Reason: leg swelling, worse breathing Magnesium Oxide [Mag-Oxide Magnesium] 200 mg PO BID #60 tablet Home Medications: Albuterol Sulfate [Albuterol Sulfate Hfa] 1 puff IH Q6HP PRN 09/04/19 Fluticasone/Umeclidin/Vilanter [Trelegy 100-62.5-25 Mcg Ellipta 14 Dose/Dpi] 1 puff IH DAILY 09/04/19 Hydrocortisone [Hydrocortisone 2.5% Cream 28 gm (Clinic Use)] 1 applic TOP BID 09/04/19 Tussionex 5 ml PO Q12HP PRN 09/04/19 Nystatin [Mycostatin Cream 15 gm] 1 applic TP BID 7 Days #1 tube 11/22/19 Hydroxyzine Pamoate [Vistaril 50 mg Capsule] 50 mg PO DAILY 12/26/19 Furosemide [Lasix 20 mg Tablet] 20 mg PO DAILYP PRN #30 tablet 12/31/19 Magnesium Oxide [Mag-Oxide Magnesium] 200 mg PO BID #60 tablet 12/31/19 Potassium Chloride [Klor-Con 10 Meq Tablet ER] 20 meq PO BID #60 tablet.er 12/31/19 History of Present Illiness History of Present Illness: DYLAN SWARTZ is a 59 year old female Physical Exam Vital Signs: Temp Pulse Resp BP Pulse Ox 97.8 F 104 H 16 80/62 L 96 12/31/19 15:17 12/31/19 15:17 12/31/19 15:17 12/31/19 15:17 12/31/19 15:17 Intake & Output 12/30/19 12/31/19 01/01/20 06:59 06:59 06:59 Intake Total 841 220 480 Output Total 1850 1300 1200 Balance -1009 -1080 -720 Weight 60.3 kg 60.3 kg Results Laboratory Results: WBC 3.8 10^3/uL (4.0-10.5) L 12/29/19 05:00 RBC 3.07 10^6/uL (3.72-5.28) L 12/29/19 05:00 Hgb 9.7 g/dL (12.0-15.5) L 12/29/19 05:00 Hct 28.4 % (36.0-47.0) L 12/29/19 05:00 MCV 93 fl (80-97) 12/29/19 05:00 MCH 31.7 pg (27.0-33.4) 12/29/19 05:00 MCHC 34.2 g/dL (32.0-36.0) 12/29/19 05:00 RDW 18.8 % (11.5-14.0) H 12/29/19 05:00 Plt Count 137 10^3/uL (150-450) L 12/29/19 05:00 Lymph % (Auto) 11.7 % (13-45) L 12/27/19 05:40 [place] % (Auto) 11.1 % (3-13) 12/27/19 05:40 Eos % (Auto) 1.1 % (0-6) 12/27/19 05:40 Baso % (Auto) 0.3 % (0-2) 12/27/19 05:40 Absolute Neuts (auto) 3.9 10^3/uL (1.7-8.2) 12/27/19 05:40 Absolute Lymphs (auto) 0.6 10^3/uL (0.5-4.7) 12/27/19 05:40 Absolute Monos (auto) 0.6 10^3/uL (0.1-1.4) 12/27/19 05:40 Absolute Eos (auto) 0.1 10^3/uL (0.0-0.6) 12/27/19 05:40 Absolute Basos (auto) 0.0 10^3/uL (0.0-0.2) 12/27/19 05:40 Total Counted 100 12/26/19 06:56 Seg Neutrophils % 75.8 % (42-78) 12/27/19 05:40 Seg Neuts % (Manual) 65 % (42-78) 12/26/19 06:56 Lymphocytes % (Manual) 20 % (13-45) 12/26/19 06:56 Atypical Lymphs % 3 % (0) 12/26/19 06:56 Monocytes % (Manual) 7 % (3-13) 12/26/19 06:56 Eosinophils % (Manual) 4 % (0-6) 12/26/19 06:56 Basophils % (Manual) 1 % (0-2) 12/26/19 06:56 Abs Neuts (Manual) 2.3 10^3/uL (1.7-8.2) 12/26/19 06:56 Abs Lymphs (Manual) 0.8 10^3/uL (0.5-4.7) 12/26/19 06:56 Abs Monocytes (Manual) 0.3 10^3/uL (0.1-1.4) 12/26/19 06:56 Absolute Eos (Manual) 0.1 10^3/uL (0.0-0.6) 12/26/19 06:56 Abs Basophils (Manual) 0.0 10^3/uL (0.0-0.2) 12/26/19 06:56 Nucleated RBCs 4 /100 WBC (0) 12/25/19 19:04 Platelet Comment DECREASED 12/26/19 06:56 Polychromasia SLIGHT 12/26/19 06:56 Poikilocytosis 1+ 12/26/19 06:56 Anisocytosis 2+ 12/26/19 06:56 Target Cells 1+ 12/26/19 06:56 Tear Drop Cells SLIGHT 12/25/19 19:04 Ovalocytes SLIGHT 12/25/19 19:04 Schistocytes SLIGHT 12/26/19 06:56 D-Dimer 3.22 ug/mL (0.00-0.50) H 12/27/19 11:09 Carbonic Acid 1.78 mmol/L (1.05-1.35) H 12/27/19 06:15 HCO3/H2CO3 Ratio 20:1 12/27/19 06:15 ABG pH 7.41 (7.35-7.45) 12/27/19 06:15 ABG pCO2 59.1 mmHg (35-45) H 12/27/19 06:15 ABG pO2 75.6 mmHg (80-100) L 12/27/19 06:15 ABG HCO3 36.5 mmol/L (20-24) H 12/27/19 06:15 ABG Total CO2 38.3 mmol/L (21-25) H 12/27/19 06:15 ABG O2 Saturation 94.9 % (94-98) 12/27/19 06:15 ABG Base Excess 10.2 mmol/L 12/27/19 06:15 FiO2 28 12/27/19 06:15 Sodium 134.2 mmol/L (137-145) L 12/29/19 05:00 Potassium 4.5 mmol/L (3.6-5.0) 12/30/19 09:30 Chloride 91 mmol/L (98-107) L 12/29/19 05:00 Carbon Dioxide 38 mmol/L (22-30) H 12/29/19 05:00 Anion Gap 5 (5-19) 12/29/19 05:00 BUN 9 mg/dL (7-20) 12/29/19 05:00 Creatinine 0.60 mg/dL (0.52-1.25) 12/29/19 05:00 Est GFR ( Amer) > 60 (>60) 12/29/19 05:00 Est GFR (MDRD) Non-Af > 60 (>60) 12/29/19 05:00 Glucose 82 mg/dL (75-110) 12/29/19 05:00 Calcium 8.3 mg/dL (8.4-10.2) L 12/29/19 05:00 Magnesium 1.7 mg/dL (1.6-2.3) 12/30/19 09:30 Total Bilirubin 0.5 mg/dL (0.2-1.3) 12/25/19 19:04 Direct Bilirubin 0.4 mg/dL (0.0-0.4) 12/25/19 19:04 Neonat Total Bilirubin Not Reportable 12/25/19 19:04 Neonat Direct Bilirubin Not Reportable 12/25/19 19:04 Neonat Indirect Bili Not Reportable 12/25/19 19:04 AST 31 U/L (14-36) 12/25/19 19:04 ALT 9 U/L (<35) 12/25/19 19:04 Alkaline Phosphatase 158 U/L (38-126) H 12/25/19 19:04 Creatine Kinase 47 U/L (30-135) 12/26/19 12:26 CK-MB (CK-2) 1.30 ng/mL (<4.55) 12/26/19 12:26 Troponin I < 0.012 ng/mL 12/26/19 12:26 NT-Pro-B Natriuret Pep 1180 pg/mL (<125) H 12/27/19 05:40 Total Protein 7.4 g/dL (6.3-8.2) 12/25/19 19:04 Albumin 3.2 g/dL (3.5-5.0) L 12/25/19 19:04 Triglycerides 78 mg/dL (<150) 12/26/19 06:56 Cholesterol 103.29 mg/dL (0-200) 12/26/19 06:56 LDL Cholesterol Direct 33 mg/dL (<100) 12/26/19 06:56 VLDL Cholesterol 16.0 mg/dL (10-31) 12/26/19 06:56 HDL Cholesterol 49 mg/dL (>40) 12/26/19 06:56 TSH 9.82 uIU/mL (0.47-4.68) H 12/26/19 06:56 Free T4 1.01 ng/dL (0.78-2.19) 12/26/19 06:56 Free T3 pg/mL 2.77 pg/mL (2.77-5.27) 12/26/19 06:56 Urine Color YELLOW 12/25/19 22:30 Urine Appearance CLEAR 12/25/19 22:30 Urine pH 5.0 (5.0-9.0) 12/25/19 22:30 Ur Specific [place] 1.010 12/25/19 22:30 Urine Protein NEGATIVE mg/dL (NEGATIVE) 12/25/19 22:30 Urine Glucose (UA) NEGATIVE mg/dL (NEGATIVE) 12/25/19 22:30 Urine Ketones NEGATIVE mg/dL (NEGATIVE) 12/25/19 22:30 Urine Blood NEGATIVE (NEGATIVE) 12/25/19 22:30 Urine Nitrite NEGATIVE (NEGATIVE) 12/25/19 22:30 Urine Bilirubin NEGATIVE (NEGATIVE) 12/25/19 22:30 Urine Urobilinogen NEGATIVE mg/dL (<2.0) 12/25/19 22:30 Ur Leukocyte Esterase NEGATIVE (NEGATIVE) 12/25/19 22:30 Urine WBC (Auto) 0 /HPF 12/25/19 22:30 U Hyaline Cast (Auto) 1 /LPF 12/25/19 22:30 Squamous Epi Cells Auto 1 /HPF 12/25/19 22:30 Urine Mucus (Auto) RARE /LPF 12/25/19 22:30 Urine Ascorbic Acid NEGATIVE (NEGATIVE) 12/25/19 22:30 12/25/19 12/25/19 12/26/19 19:04 19:04 00:51 CK-MB (CK-2) 1.47 Troponin I 0.012 < 0.012 NT-Pro-B Natriuret Pep 1840 H 12/26/19 12/26/19 12/27/19 06:56 12:26 05:40 CK-MB (CK-2) 1.29 1.30 Troponin I < 0.012 < 0.012 NT-Pro-B Natriuret Pep 1180 H Impressions: Chest X-Ray 12/25/19 18:43 IMPRESSION: Severe rounded contour of the heart has increased significantly since 09/10/2019, possibly representing a moderate to large pericardial effusion. Echocardiogram may provide additional information. No acute consolidation. Venous Doppler Study 12/25/19 20:14 IMPRESSION: No DVT is identified. TECHNIQUE: LIMITATIONS: None. FINDINGS: IMPRESSION: copyright 2010 [employer]- All Rights Reserved Venous Doppler Study 12/25/19 20:14 IMPRESSION: No DVT is identified. TECHNIQUE: LIMITATIONS: None. FINDINGS: IMPRESSION: copyright 2010 [employer]- All Rights Reserved Chest/Abdomen CTA 12/27/19 00:00 IMPRESSION: 1. There are no pulmonary emboli. There is no aortic aneurysm or dissection. 2. Cardiomegaly with mild pulmonary edema superimposed upon emphysematous changes. 3. The 2 larger right pulmonary nodules have increased in size slightly. Cannot exclude neoplasm. Head CT 12/30/19 00:00 IMPRESSION: Mild small-vessel ischemic change with subtle decreased attenuation in the periventricular white matter. No acute findings. Pansinusitis. EVIDENCE OF ACUTE STROKE: NO. Modified Barium Swallow 12/30/19 00:00 IMPRESSION: TRACE ASPIRATION WITH THIN BARIUM. PLEASE SEE SPEECH PATHOLOGIST REPORT FOR OTHER FINDINGS AND RECOMMENDATIONS. Stroke Is this a Stroke Patient?: No Acute Heart Failure Is this a Heart Failure Patient?: Yes Documentation of LVEF assessment?: Yes LVEF: LVEF Greater Than 40% Anticoagulant Therapy: N/A
== END 2019-12-31 16:43 | disposition home or self-care (01) | DRG 981 ==
LOC: ER 18:27 → EH 22:00 → 4W 12-26 08:28
PROVIDERS: ADMIT Emergency Medicine; ATTEND Hospitalist
PROC: 0LBV0ZZ Excision of Right Foot Tendon, Open Approach (ICD-10-PCS; principal; 2019-12-26)
DX: I11.0 Hypertensive heart disease with heart failure (principal); I50.31 Acute diastolic (congestive) heart failure; J96.21 Acute and chronic respiratory failure with hypoxia; F11.20 Opioid dependence, uncomplicated; C34.82 Malignant neoplasm of overlapping sites of left bronchus and lung; I87.311 Chronic venous hypertension (idiopathic) with ulcer of right lower extremity; J43.9 Emphysema, unspecified; I07.1 Rheumatic tricuspid insufficiency; I27.20 Pulmonary hypertension, unspecified; F10.20 Alcohol dependence, uncomplicated; E66.01 Morbid (severe) obesity due to excess calories; Z99.81 Dependence on supplemental oxygen; M19.90 Unspecified osteoarthritis, unspecified site; F17.200 Nicotine dependence, unspecified, uncomplicated; M54.9 Dorsalgia, unspecified; G89.4 Chronic pain syndrome; I47.9 Paroxysmal tachycardia, unspecified; E83.42 Hypomagnesemia; L97.513 Non-pressure chronic ulcer of other part of right foot with necrosis of muscle; T50.1X5A Adverse effect of loop [high-ceiling] diuretics, initial encounter; I95.2 Hypotension due to drugs; Y92.230 Patient room in hospital as the place of occurrence of the external cause; G47.30 Sleep apnea, unspecified; I87.2 Venous insufficiency (chronic) (peripheral); R13.10 Dysphagia, unspecified; Z88.6 Allergy status to analgesic agent; Z88.0 Allergy status to penicillin; Z79.51 Long term (current) use of inhaled steroids; Z79.899 Other long term (current) drug therapy; Z91.19 Patient's noncompliance with other medical treatment and regimen; Z68.35 Body mass index [BMI] 35.0-35.9, adult
CPT/HCPCS: 36415; 36600; 70450; 71045; 71275; 74230; 80048; 80053; 80061; 81001; 82550; 82553; 82803; 83735; 83880; 84132; 84439; 84443; 84481; 84484; 85025; 85027; 85379; 93005; 93010; 93306; 93970; 93971; 94640; 94660; 94667; 94668; 94799; 96374; 99285; J0571; J1642; J1644; J1940; J2270; J3475; J3490

== ENCOUNTER 2020-01-30 11:02 | Inpatient (IN) | payer OTHER ==
[2020-01-30 11:43] LABS: ABSOLUTE LYMPHOCYTES (AUTO) 0.5 10^3/uL (0.5-4.7); ABSOLUTE MONOCYTES (AUTO) 0.5 10^3/uL (0.1-1.4); ABSOLUTE NEUT (AUTO) 8.3 10^3/uL (1.7-8.2); BASOPHILS % (AUTO) 0.1 % (0-2); HEMOGLOBIN 13.7 g/dL (12.0-15.5); LYMPHOCYTES % (AUTO) 5.7 % (13-45); MEAN CORPUSCULAR HEMOGLOBIN 31.8 pg (27.0-33.4); MEAN CORPUSCULAR HGB CONC 33.4 g/dL (32.0-36.0); MEAN CORPUSCULAR VOLUME 95 fl (80-97); MONOCYTES % (AUTO) 5.1 % (3-13); PLATELET COUNT 190 10^3/uL (150-450); RED BLOOD COUNT 4.31 10^6/uL (3.72-5.28); RED CELL DISTRIBUTION WIDTH 21.3 % (11.5-14.0); SEGMENTED NEUTROPHILS % (AUTO) 89.1 % (42-78); TOTAL CELLS COUNTED % (AUTO) 100 %; WHITE BLOOD COUNT 9.4 10^3/uL (4.0-10.5)
--- NOTE | 2020-01-30 12:02 | ER Document Report ---
ED General - General TRAVEL OUTSIDE OF THE [place] IN LAST 30 DAYS: No - Related Data Home Medications: Home medications from discharge summary in December, include albuterol, Trelegy, hydrocortisone cream, Tussionex, nystatin, hydroxyzine, Lasix, magnesium oxide, potassium chloride <JOSE ANTONIO STRANGE - Last Filed: 01/30/20 16:16> <DANIEL BAINS P - Last Filed: 01/30/20 17:48> - General Chief Complaint: Altered Mental Status Stated Complaint: SHORTNESS OF BREATH Time Seen by Provider: 01/30/20 11:30 - HPI Notes: Patient is a 59-year-old female who presents to the emergency department for evaluation. History is obtained secondhand from nursing, EMS. Evidently the patient has had increased confusion over the last several weeks. She was found on the ground. I am unsure as to how she got there. I am unsure as to how long she laid there. The patient denies any pain to me at this time, but she is an unreliable historian. She admits or something wrong with her breathing, but really cannot further characterize it for me in any way. (JOSE ANTONIO STRANGE) - Related Data Allergies/Adverse Reactions: aspirin [Aspirin] Allergy (Verified 10/06/18 17:54) NSAIDS (Non-Steroidal Anti-Inflamma [Nsaids] Allergy (Verified 10/06/18 17:54) Penicillins Allergy (Verified 10/06/18 17:54) Past Medical History - General Information source: Patient, Emergency Med Personnel, [facility] Records - Social History Smoking Status: Current Every Day Smoker Frequency of alcohol use: Heavy Family History: CAD, Malignancy Patient has homicidal ideation: No - Past Medical History Cardiac Medical History: Reports: Hx Congestive Heart Failure, Hx Hypertension, Hx Peripheral Vascular Disease Denies: Hx Atrial Fibrillation, Hx Coronary Artery Disease, Hx DVT, Hx Heart Attack, Hx Hypercholesterolemia, Hx Pulmonary Embolism Pulmonary Medical History: Reports: Hx Asthma, Hx Bronchitis, Hx COPD, Hx Pneumonia, Hx Respiratory Failure - Chronic on home O2, Hx Sleep Apnea Neurological Medical History: Denies: Hx Cerebrovascular Accident, Hx Seizures Endocrine Medical History: Denies: Hx Diabetes Mellitus Type 1, Hx Diabetes Mellitus Type 2, Hx Hyperthyroidism, Hx Hypothyroidism Renal/ Medical History: Denies: Hx Peritoneal Dialysis Malignancy Medical History: Reports: Hx Lung Cancer GI Medical History: Reports: Hx Gastroesophageal Reflux Disease. Denies: Hx Cirrhosis, Hx Hepatitis Musculoskeletal Medical History: Reports Hx Arthritis, Denies Hx Fibromyalgia, Reports Hx Gout Skin Medical History: Denies Hx Eczema, Denies Hx Psoriasis Psychiatric Medical History: Reports: Hx Depression Infectious Medical History: Denies: Hx Hepatitis Past Surgical History: Reports: Hx Tubal Ligation, Other - Unilateral salpingectomy, colonoscopy - Immunizations Hx Diphtheria, Pertussis, Tetanus Vaccination: Yes <JOSE ANTONIO STRANGE - Last Filed: 01/30/20 16:16> Review of Systems - Review of Systems -: Yes ROS unobtainable due to patient's medical condition <JOSE ANTONIO STRANGE - Last Filed: 01/30/20 16:16> Physical Exam <JOSE ANTONIO STRANGE - Last Filed: 01/30/20 16:16> - Vital signs Vitals: Resp Pulse Ox 26 H 97 01/30/20 11:12 01/30/20 11:12 - Notes Notes: This is a 59-year-old female who appears much older than her stated age, in a mild amount of distress. She is tachypneic, appears confused. Vital signs reviewed, please refer to chart. Head is normocephalic, atraumatic. Pupils equal round, reactive to light. Neck is supple without meningismus. Heart is regular rate and rhythm. Lungs reveal diminished breath sounds without wheezes, rales, rhonchi. Abdomen is soft, nontender, normoactive bowel sounds throughout. Patient with 2+ pitting pretibial edema bilaterally with chronic appearing skin changes. Posterior calves are nontender. Peripheral pulses are equal. Skin is warm and dry. She has a large ulceration, 8 x 8 cm, over the dorsum of her right foot. Granulation tissue noted, no foul-smelling drainage or surrounding induration is noted. Patient is drowsy but awake. She is confused, oriented to place, disoriented to person and time. She has difficulty following directions. No gross facial asymmetry. She moves all 4 extremity spontaneously. (JOSE ANTONIO STRANGE) Course - Laboratory Result Diagrams: 01/30/20 11:11 01/30/20 11:11 - Diagnostic Test Radiology reviewed: Reports reviewed <JOSE ANTONIO STRANGE - Last Filed: 01/30/20 16:16> - Laboratory Result Diagrams: 01/30/20 11:11 01/30/20 11:11 <DANIEL BAINS P - Last Filed: 01/30/20 17:48> - Re-evaluation Re-evalutation: 01/30/20 12:00 Patient presents to the emergency department for evaluation. She was initially brought in by EMS. There is some confusion as to how she ended up on the floor, I am unsure as to all of the details surrounding this patient's current HPI. Laboratory investigations and imaging is ordered. She is kept on her normal 4 L per nasal cannula of oxygen. She is currently stable, blood pressure 123/87 with a heart rate of 101. She is 92% on 4 L. We will continue to monitor. 01/30/20 15:21 Patient remained stable here in the emergency department. She was found to be hypoglycemic, was given half an amp of D50. She was again found to be hypoglycemic, was given another half amp of dextrose and started on D5W. Patient's did eventually show up here in the emergency department. He really cannot tell me how long she has been altered, but he admits that the patient has been noncompliant with her medications, noncompliant with her doctors appointments. He also states that the patient has been drinking alcohol daily. She frequently drinks beer all day, oftentimes she becomes more agitated and altered when she drinks alcohol. I did, upon finding out this information, order thiamine and folic acid. I ordered an alcohol level. Patient is currently stable. We will continue to monitor. 01/30/20 15:24 Please note, secondary to the continued tachycardia, I did order blood cultures as well. 01/30/20 16:16 I spoke with Suki Stephenson, nurse practitioner, she will accept the patient for further care. (JOSE ANTONIO STRANGE) - Vital Signs Vital signs: Temp Pulse Resp BP Pulse Ox 98.1 F 126 H 27 H 119/88 H 97 01/30/20 11:22 01/30/20 11:29 01/30/20 15:01 01/30/20 15:01 01/30/20 15:01 - Laboratory Laboratory results interpreted by me: 01/30/20 01/30/20 01/30/20 11:11 11:11 11:11 RDW 21.3 H Lymph % (Auto) 5.7 L Absolute Neuts (auto) 8.3 H Seg Neutrophils % 89.1 H Carbonic Acid ABG pCO2 ABG pO2 ABG HCO3 ABG Total CO2 ABG O2 Saturation Sodium 136.2 L Chloride 93 L Creatinine 0.43 L Glucose 51 L POC Glucose Direct Bilirubin 0.6 H Alkaline Phosphatase 168 H NT-Pro-B Natriuret Pep 2050 H Albumin 3.0 L Urine Protein Urine Ketones 01/30/20 01/30/20 01/30/20 12:17 13:40 13:48 RDW Lymph % (Auto) Absolute Neuts (auto) Seg Neutrophils % Carbonic Acid 1.49 H ABG pCO2 49.6 H ABG pO2 57.5 L ABG HCO3 29.2 H ABG Total CO2 30.7 H ABG O2 Saturation 89.3 L Sodium Chloride Creatinine Glucose POC Glucose 49 L Direct Bilirubin Alkaline Phosphatase NT-Pro-B Natriuret Pep Albumin Urine Protein 30 H Urine Ketones 80 H - Diagnostic Test Radiology results interpreted by me: 01/30/20 16:17 Chest X-Ray 01/30/20 11:31 IMPRESSION: STABLE MARKED CARDIOMEGALY. NO ACUTE RADIOGRAPHIC FINDING IN THE CHEST. Head CT 01/30/20 11:40 IMPRESSION: MILD CHRONIC CHANGES OF ATROPHY AND MICROVASCULAR ISCHEMIA. DIFFUSE SINUS DISEASE. NO ACUTE PROCESS. EVIDENCE OF ACUTE STROKE: NO. (JOSE ANTONIO STRANGE) - EKG Interpretation by Me Additional EKG results interpreted by me: 01/30/20 12:01 Tachycardia with a rate of 134 bpm. Normal axis. Prolonged QT interval. Nonspecific ST changes, but no acute ST elevation concerning for infarction. Prolonged QT and rate are different, but no other significant EKG changes since prior study. (JOSE ANTONIO STRANGE) Discharge - Discharge Admitting Provider: Melquiades (Hospitalist) - Suki Stephenson, nurse practitioner Unit Admitted: Telemetry <JOSE ANTONIO STRANGE - Last Filed: 01/30/20 16:16> <DANIEL BAINS - Last Filed: 01/30/20 17:48> - Discharge Clinical Impression: Hypoglycemia, Ulcer of right foot with fat layer exposed Alcohol dependency Qualifiers: Complication of substance-induced condition: with unspecified complication Altered mental status Qualifiers: Altered mental status type: disorientation Qualified Code(s): R41.0 - Disorientation, unspecified Condition: Stable Disposition: ADMITTED INPATIENT
[2020-01-30 12:13] LABS: CREATINE KINASE MB 1.85 ng/mL (<4.55); NT PRO BNP 2050 pg/mL (<125)
[2020-01-30 12:14] LABS: ALKALINE PHOSPHATASE 168 U/L (38-126); ANION GAP 14 (5-19); ASPARTATE AMINO TRANSFERASE 28 U/L (14-36); BILIRUBIN,DIRECT 0.6 mg/dL (0.0-0.4); BILIRUBIN,TOTAL 0.9 mg/dL (0.2-1.3); BLOOD UREA NITROGEN 8 mg/dL (7-20); CALCIUM 9.2 mg/dL (8.4-10.2); CARBON DIOXIDE 29 mmol/L (22-30); CHLORIDE 93 mmol/L (98-107); CREATINE KINASE 34 U/L (30-135); POTASSIUM 4.2 mmol/L (3.6-5.0); TOTAL PROTEIN 6.8 g/dL (6.3-8.2); TROPONIN I < 0.012 ng/mL
[2020-01-30 12:16] LABS: GLUCOSE 51 mg/dL (75-110)
[2020-01-30] MEDS ORDERED: DEXTROSE 50%-WATER 25 GM/50 ML DISP.SYRIN IV ONE ×4 (12:25→14:07)
[2020-01-30 12:39] LABS: ARTERIAL BLOOD BASE EXCESS 3.4 mmol/L; ARTERIAL BLOOD H2CO3 1.49 mmol/L (1.05-1.35); ARTERIAL BLOOD HCO3 29.2 mmol/L (20-24); ARTERIAL BLOOD O2 SATURATION 89.3 % (94-98); ARTERIAL BLOOD PCO2 49.6 mmHg (35-45); ARTERIAL BLOOD PH 7.39 (7.35-7.45); ARTERIAL BLOOD PO2 57.5 mmHg (80-100); ARTERIAL BLOOD TOTAL CO2 30.7 mmol/L (21-25)
[2020-01-30 12:40] LABS: ARTERIAL BLOOD FIO2 36%
--- NOTE | 2020-01-30 12:53 | RADIOLOGY REPORT (SQ) ---
EXAM DESCRIPTION: CT HEAD WITHOUT IMAGES COMPLETED DATE/TIME: 01/30/2020 12:41 pm REASON FOR STUDY: altered mental status COMPARISON: None. TECHNIQUE: Axial images acquired through the brain without intravenous contrast. Images reviewed wi th bone, brain and subdural windows. Additional sagittal and coronal reconstructions were generated. Images stored on PACS. All CT scanners at this facility use dose modulation, iterative reconstruction, and/or weight based d osing when appropriate to reduce radiation dose to as low as reasonably achievable (ALARA). [facility]: Dose Right [facility]: CareDose [facility]: Dose Right [facility]: Teradose 4D [facility]: [employer] RADIATION DOSE: CT Rad equipment meets quality standard of care and radiation dose reduction techniq ues were employed. CTDIvol: 48.5 mGy. DLP: 855 mGy-cm. mGy. LIMITATIONS: None. FINDINGS: VENTRICLES: Prominent. CEREBRUM: No masses. No hemorrhage. No midline shift. Areas of low density in the white matter mos t likely due to chronic micro-vascular ischemic change. No evidence for acute infarction. CEREBELLUM: No masses. No hemorrhage. No alteration of density. No evidence for acute infarction. EXTRAAXIAL SPACES: Mild age-related involutional change. No fluid collections. No masses. ORBITS AND GLOBE: No intra- or extraconal masses. Normal contour of globe without masses. CALVARIUM: No fracture. PARANASAL SINUSES: Fluid throughout the sinuses. SOFT TISSUES: No mass or hematoma. OTHER: No other significant finding. IMPRESSION: MILD CHRONIC CHANGES OF ATROPHY AND MICROVASCULAR ISCHEMIA. DIFFUSE SINUS DISEASE. NO ACUTE PROCESS. EVIDENCE OF ACUTE STROKE: NO. TECHNICAL DOCUMENTATION: JOB ID: [id number] Quality ID # [id number]: Final reports with documentation of one or more dose reduction techniques (e.g., Au tomated exposure control, adjustment of the mA and/or kV according to patient size, use of iterative reconstruction technique) 2010 [employer]- All Rights Reserved Reading location - IP/workstation name: [email or web address]
--- NOTE | 2020-01-30 13:03 | RADIOLOGY REPORT (SQ) ---
EXAM DESCRIPTION: CHEST SINGLE VIEW IMAGES COMPLETED DATE/TIME: 01/30/2020 12:54 pm REASON FOR STUDY: dyspnea COMPARISON: 12/25/2019. EXAM PARAMETERS: NUMBER OF VIEWS: One view. TECHNIQUE: Single frontal radiographic view of the chest acquired. RADIATION DOSE: NA LIMITATIONS: None. FINDINGS: LUNGS AND PLEURA: No opacities, masses or pneumothorax. No pleural effusion. MEDIASTINUM AND HILAR STRUCTURES: No masses. Contour normal. HEART AND VASCULAR STRUCTURES: Heart cardiomegaly unchanged. BONES: No acute findings. HARDWARE: Vascular port. OTHER: No other significant finding. IMPRESSION: STABLE MARKED CARDIOMEGALY. NO ACUTE RADIOGRAPHIC FINDING IN THE CHEST. TECHNICAL DOCUMENTATION: JOB ID: [id number] 2010 [employer]- All Rights Reserved Reading location - IP/workstation name: [email or web address]
[2020-01-30 14:05] LABS: APPEARANCE,URINE CLEAR; BILIRUBIN,URINE NEGATIVE (NEGATIVE); COLOR,URINE YELLOW; GLUCOSE, URINE NEGATIVE (NEGATIVE); KETONES,URINE 80 mg/dL (NEGATIVE); LEUKOCYTE ESTERASE,URINE NEGATIVE (NEGATIVE); NITRITE,URINE NEGATIVE (NEGATIVE); PROTEIN,URINE 30 mg/dL (NEGATIVE); URINE SPECIFIC GRAVITY 1.018; UROBILINOGEN,URINE NEGATIVE mg/dL (<2.0)
[2020-01-30] MEDS ORDERED: DEXTROSE 5%-NORMAL SALINE 1,000 ML IV ONE (14:06)
[2020-01-30] MEDS ORDERED: THIAMINE HCL 100 MG, FOLIC ACID 1 MG in NORMAL SALINE 250 ML IV ONE (15:13)
[2020-01-30] MEDS ORDERED: ALBUTEROL SULFATE 0.083% NEB 2.5 MG/3 ML AMPUL NEB PRN (17:04)
[2020-01-30] MEDS ORDERED: ONDANSETRON HCL INJ/PF 4 MG/2 ML SDV IV PRN (17:10)
[2020-01-30] MEDS ORDERED: MAG HYDROX/AL HYDROX/SIMETH SUSP 30 ML UDCUP PO PRN (17:10)
[2020-01-30] MEDS ORDERED: NALOXONE HCL INJ/PF 0.4 MG/1 ML SDV IV ONE (17:16)
[2020-01-30] MEDS ORDERED: FUROSEMIDE INJ/PF 40 MG/4 ML SDV IV PRN (17:20)
[2020-01-30] MEDS ORDERED: NICOTINE 14 MG/24 HR PATCH.TD24 TD PRN (17:26)
[2020-01-30 17:48] LABS: URINE AMPHETAMINES SCREEN NEGATIVE; URINE BARBITURATES SCREEN NEGATIVE; URINE BENZODIAZEPINES SCREEN NEGATIVE; URINE COCAINE SCREEN NEGATIVE; URINE MARIJUANA (THC) SCREEN NEGATIVE; URINE METHADONE SCREEN NEGATIVE; URINE PHENCYCLIDINE SCREEN NEGATIVE
--- NOTE | 2020-01-30 17:56 | EKG REPORT ---
SEVERITY:- ABNORMAL ECG - SINUS TACHYCARDIA BORDERLINE INFERIOR Q WAVES PROLONGED QT INTERVAL : Confirmed by: Beny Bergeron MD 30-Jan-2020 17:55:50
[2020-01-30] MEDS ORDERED: DEXTROSE 5%-NORMAL SALINE 1,000 ML IV PRN (17:57)
--- NOTE | 2020-01-30 18:04 | PDOC H&P ---
History of Present Illness Admission Date/PCP: 01/30/20 16:57 GALA ROBERTSON MD Patient complains of: altered mental status History of Present Illness: DYLAN SWARTZ is a 59 year old female with a past medical history significant for CHF (LVEF 60%; moderate pulmonary hypertension), COPD, lung cancer (stage III; last chemo treatment in July. Followed by Dr. Robertson), home O2 dependent, sleep apnea, obesity, GERD, arthritis, depression, tobacco and alcoho l dependency, opiate dependent chronic pain who presented to the emergency department today via EMS for complaint of increased confusion. Per EMS report, the patient slipped from the couch to the floor and was unable to get up. Family reported to EMS that patient has had progressively worsening confusion over the last month. Per ED provider, it was also reported that the patient has been frequently refusing medications and follow-up appointments. Evaluation in the emergency department revealed tachycardia, tachypnea, unremarkable CBC, ABG revealed chronic respiratory acidosis with hypercapnia and hypoxia, elevated proBNP, negative troponins x2, hypoglycemia (glucose 40; now on D5W). Chest x-ray revealed stable cardiomegaly no other acute findings. Head CT demonstrated mild chronic changes of atrophy and microvascular ischemia, diffuse sinus disease, no acute process. Patient is referred to the hospitalist service for further evaluation management of the above-stated complaints and findings. Past Medical History Cardiac Medical History: Reports: Congestive Heart Failure, Hypertension, Peripheral Vascular Disease Denies: Coronary Artery Disease, Hyperlipidema Pulmonary Medical History: Reports: Asthma, Bronchitis, Chronic Obstructive Pulmonary Disease (COPD), Pneumonia, Respiratory Failure - Chronic on home O2, Sleep Apnea Neurological Medical History: Denies: Ischemic CVA, Seizures Endocrine Medical History: Reports: Obesity Denies: Diabetes Mellitus Type 2, Hypothyroidism Renal/ Medical History: Reports: None Malignancy Medical History: Reports: Lung Cancer GI Medical History: Reports: Gastroesophageal Reflux Disease Denies: Cirrhosis, Hepatitis Musculoskeltal Medical History: Reports: Arthritis, Gout Denies: Fibromyalgia Skin Medical History: Denies: Eczema, Psoriasis Psychiatric Medical History: Reports: Alcohol Dependency, Depression, Tobacco Dependency Hematology: Reports: Anemia Denies: Bleeding Tendencies Past Surgical History Past Surgical History: Reports: Tubal Ligation, Other - Unilateral salpingectomy, colonoscopy Social History Information Source: Emergency Med Personnel, [facility] Records Lives with: Family Smoking Status: Current Every Day Smoker Frequency of Alcohol Use: Heavy Hx Recreational Drug Use: Yes - Remote past, no current use Drugs: None Hx Prescription Drug Abuse: No - Advance Directive Resuscitation Status: Full Code Family History Family History: CAD, Malignancy Parental Family History Reviewed: Yes Children Family History Reviewed: Yes Sibling(s) Family History Reviewed.: Yes Medication/Allergy Home Medications: Albuterol Sulfate [Albuterol Sulfate Hfa] 1 puff IH Q6HP PRN 09/04/19 Fluticasone/Umeclidin/Vilanter [Trelegy 100-62.5-25 Mcg Ellipta 14 Dose/Dpi] 1 puff IH DAILY 09/04/19 Hydrocortisone [Hydrocortisone 2.5% Cream 28 gm (Clinic Use)] 1 applic TOP BID 09/04/19 Tussionex 5 ml PO Q12HP PRN 09/04/19 Nystatin [Mycostatin Cream 15 gm] 1 applic TP BID 7 Days #1 tube 11/22/19 Hydroxyzine Pamoate [Vistaril 50 mg Capsule] 50 mg PO DAILY 12/26/19 Furosemide [Lasix 20 mg Tablet] 20 mg PO DAILYP PRN #30 tablet 12/31/19 Magnesium Oxide [Mag-Oxide Magnesium] 200 mg PO BID #60 tablet 12/31/19 Potassium Chloride [Klor-Con 10 Meq Tablet ER] 20 meq PO BID #60 tablet.er 12/31/19 Allergies/Adverse Reactions: aspirin [Aspirin] Allergy (Verified 10/06/18 17:54) NSAIDS (Non-Steroidal Anti-Inflamma [Nsaids] Allergy (Verified 10/06/18 17:54) Penicillins Allergy (Verified 10/06/18 17:54) Review of Systems ROS unobtainable: Due to mental status Physical Exam Vital Signs: Temp Pulse Resp BP Pulse Ox 98.1 F 126 H 27 H 119/88 H 97 01/30/20 11:22 01/30/20 11:29 01/30/20 15:01 01/30/20 15:01 01/30/20 15:01 Intake & Output 01/29/20 01/30/20 01/31/20 06:59 06:59 06:59 Intake Total 251.2 Balance 251.2 Weight 79.1 kg General appearance: PRESENT: no acute distress, disheveled, obese, well- developed, well-nourished Head exam: PRESENT: atraumatic, normocephalic Eye exam: PRESENT: conjunctiva pink, EOMI, PERRLA. ABSENT: scleral icterus Mouth exam: PRESENT: moist, tongue midline, other - thrush Teeth exam: PRESENT: poor dentation Neck exam: ABSENT: carotid bruit, JVD, lymphadenopathy, thyromegaly Respiratory exam: PRESENT: clear to auscultation javier. ABSENT: rales, rhonchi, wheezes Cardiovascular exam: PRESENT: RRR, +S1, +S2, tachycardia. ABSENT: diastolic murmur, rubs, systolic murmur Vascular exam: PRESENT: normal capillary refill GI/Abdominal exam: PRESENT: distended, normal bowel sounds, soft. ABSENT: guarding, mass, organolmegaly, rebound, tenderness Rectal exam: PRESENT: deferred Extremities exam: PRESENT: +2 edema - tight, pitting, edema BLE extending to mid thigh. ABSENT: calf tenderness, clubbing, pedal edema Neurological exam: PRESENT: alert, awake, oriented to person, CN II-XII grossly intact, other - unable to answer questions or follow directions. ABSENT: oriented to place, oriented to time, oriented to situation, motor sensory deficit Skin exam: PRESENT: dry, erythema - BLE, warm, other - Stage III wound to dorsum of right foot. ABSENT: cyanosis, intact, rash Results Laboratory Results: 01/30/20 11:11 01/30/20 11:11 01/30/20 01/30/20 01/30/20 11:11 11:11 11:11 WBC 9.4 RBC 4.31 Hgb 13.7 Hct 41.0 MCV 95 MCH 31.8 MCHC 33.4 RDW 21.3 H Plt Count 190 Seg Neutrophils % 89.1 H Carbonic Acid HCO3/H2CO3 Ratio ABG pH ABG pCO2 ABG pO2 ABG HCO3 ABG O2 Saturation ABG Base Excess FiO2 Sodium 136.2 L Potassium 4.2 Chloride 93 L Carbon Dioxide 29 Anion Gap 14 BUN 8 Creatinine 0.43 L Est GFR ( Amer) > 60 Glucose 51 L Lactic Acid 1.0 Calcium 9.2 Total Bilirubin 0.9 AST 28 Alkaline Phosphatase 168 H Total Protein 6.8 Albumin 3.0 L Urine Color Urine Appearance Urine pH Ur Specific [place] Urine Protein Urine Glucose (UA) Urine Ketones Urine Blood Urine Nitrite Ur Leukocyte Esterase Urine WBC (Auto) 10/22/20 10/22/20 12:17 13:40 WBC RBC Hgb Hct MCV MCH MCHC RDW Plt Count Seg Neutrophils % Carbonic Acid 1.49 H HCO3/H2CO3 Ratio 19:1 ABG pH 7.39 ABG pCO2 49.6 H ABG pO2 57.5 L ABG HCO3 29.2 H ABG O2 Saturation 89.3 L ABG Base Excess 3.4 FiO2 36% Sodium Potassium Chloride Carbon Dioxide Anion Gap BUN Creatinine Est GFR ( Amer) Glucose Lactic Acid Calcium Total Bilirubin AST Alkaline Phosphatase Total Protein Albumin Urine Color YELLOW Urine Appearance CLEAR Urine pH 5.0 Ur Specific [place] 1.018 Urine Protein 30 H Urine Glucose (UA) NEGATIVE Urine Ketones 80 H Urine Blood NEGATIVE Urine Nitrite NEGATIVE Ur Leukocyte Esterase NEGATIVE Urine WBC (Auto) 1 01/30/20 01/30/20 01/30/20 11:11 11:11 14:09 Creatine Kinase 34 CK-MB (CK-2) 1.85 Troponin I < 0.012 < 0.012 NT-Pro-B Natriuret Pep 2049 H Impressions: Chest X-Ray 01/30/20 11:31 IMPRESSION: STABLE MARKED CARDIOMEGALY. NO ACUTE RADIOGRAPHIC FINDING IN THE CHEST. Head CT 01/30/20 11:40 IMPRESSION: MILD CHRONIC CHANGES OF ATROPHY AND MICROVASCULAR ISCHEMIA. DIF FUSE SINUS DISEASE. NO ACUTE PROCESS. EVIDENCE OF ACUTE STROKE: NO. Assessment and Plan - Diagnosis (1) Altered mental status Qualifiers: Altered mental status type: disorientation Qualified Code(s): R41.0 - Disorientation, unspecified Is this a current diagnosis for this admission?: Yes Plan: Multifactorial related to hypoglycemia, acute on chronic CHF exacerbation resulting in acute on chronic respiratory failure with hypercapnia and hypoxia, and acute infectious process (bilateral lower extremity cellulitis). Likely a lso compounded by the patient's opiate and alcohol dependence. Serum EtOH is negative. UDS positive for opiates only. We will try Narcan. Hold narcotic medications. Supportive care and disease specific management as outlined below. (2) CHF (congestive heart failure) Qualifiers: Heart failure type: diastolic Heart failure chronicity: acute on chronic Qualified Code(s): I50.33 - Acute on chronic diastolic (congestive) heart failure Is this a current diagnosis for this admission?: Yes Plan: proBNP is elevated from baseline. Noted to have bilateral lower extremity edema. Echocardiogram (December 2019) showed LVEF 60%, moderate LV diastolic dysfunction, and moderate pulmonary hypertension. Continue home medication regiment once reconciled. Will diurese with furosemide and spironolactone. Cardiac diet. Daily weights, strict I&O's. (3) Fluid overload Qualifiers: Hypervolemia type: unspecified Qualified Code(s): E87.70 - Fluid overload, unspecified Is this a current diagnosis for this admission?: Yes Plan: Likely multifactorial r/t CHF, EtoH abuse w/ poor nutrition, and medication noncompliance. Will provide IV albumin today w/ IV furosemide. Start combination p.o. furosemide and spironolactone tomorrow. Consider RUQ u/s to evaluate for cirrhosis. Daily weights, strict I&Os (4) Hypoglycemia Is this a current diagnosis for this admission?: Yes Plan: Unclear etiology; patient is not diabetic or any on antidiabetic medications. She is not currently in sepsis. Likely secondary to poor nutrition We will continue D5W w/ accu checks every 2 hours. Encourage oral intake. (5) Lung cancer Qualifiers: Laterality: left Lung location: overlapping sites Qualified Code(s): C34.82 - Malignant neoplasm of overlapping sites of left bronchus and lung Is this a current diagnosis for this admission?: Yes Plan: Followed with Dr. Robertson. Spoke with Dr. Ware today, patient has stage III lung cancer. Last chemo treatment in July. Outpatient follow up. 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 Villasenor had recommended BKA. Patient adamantly declined. She was recommended to continue wet-to-dry d ressing changes with outpatient wound care follow-up. Per ED provider, she was informed that the patient has been refusing/counseling with care appointments to the extent that she has been discharged from the practice. Wound bed is currently dry. Will consult wound care nurse for recommendations. (7) Alcohol dependency Qualifiers: Complication of substance-induced condition: with unspecified complication Is this a current diagnosis for this admission?: Yes Plan: Banana bag nightly. CIWA every 4 hours with as needed Ativan. (8) Tobacco abuse Is this a current diagnosis for this admission?: Yes Plan: Nicotine replacement therapy is provided. (9) Opiate dependence Qualifiers: Substance use status: uncomplicated Qualified Code(s): F11.20 - Opioid dependence, uncomplicated Is this a current diagnosis for this admission?: Yes Plan: [place] Controlled Substance database is verified; patient is prescribed buprenorphine 8 mg sublingual tab, #60 each month. Last prescription provided 01/08/2020. Patient presents with altered mentation. We will hold on opiates for improve orientation prior to resuming. Monitor for withdrawal. (10) Obesity Qualifiers: Body mass index: BMI 34.0-34.9 Is this a current diagnosis for this admission?: Yes Plan: BMI 31.9 Patient is placed on a cardiac diet. Lifestyle modification and dietary compliance will be encouraged. (11) COPD (chronic obstructive pulmonary disease) Qualifiers: COPD type: unspecified COPD Qualified Code(s): J44.9 - Chronic obstructive pulmonary disease, unspecified Is this a current diagnosis for this admission?: Yes Plan: Stable and without exacerbation. Will provide supplemental oxygen and BiPAP as needed to maintain saturations greater than 89%. Start on scheduled and as needed nebulizer treatments. Pulmonary toilet is encouraged with incentive spirometer, flutter valve, and early ambulation. No indications for steroid therapy at this time. (12) Chronic respiratory failure with hypercapnia Is this a current diagnosis for this admission?: Yes Plan: Management as above. (13) Bilateral lower leg cellulitis Is this a current diagnosis for this admission?: Yes Plan: Reviewed infectious disease and surgical notes from the patient's recent admission. She had multiple organisms grow from foot wound culture November this year. Both specialists recommended right BKA at that time; patient declined. Infectious disease recommended patient be treated with Zyvox and Levaquin. Patient completed a course of antibiotic therapy with improvement; discharged home with outpatient follow-up. Unfortunately, patient is reportedly noncompliant with her wound care appointments. Blood cultures pending. We will empirically resume IV Zyvox and Levaquin therapy. - Time Time Spent with patient: 35 or more minutes Medications reviewed and adjusted accordingly: Yes Anticipated Discharge Disposition: Undetermined Anticipated Discharge Timeframe: >72 hrs
[2020-01-30] MEDS: NYSTATIN 500000 UNIT/5 ML UDCUP PO SCH (19:46)
[2020-01-30] MEDS: ALBUMIN HUMAN 12.5 GM/50 ML RTUINJ IV SCH ×2 (19:47→22:06)
[2020-01-30] MEDS: DEXTROSE 50%-WATER SYRINGE 25 GM/50 ML DOSE IV PRN (21:20)
[2020-01-30] MEDS ORDERED: DEXTROSE 40% GEL 15 GM TUBE PO PRN (21:30)
[2020-01-30] MEDS ORDERED: DEXTROSE 40% GEL 15 GM TUBE X 2 PO PRN (21:30)
[2020-01-30] MEDS ORDERED: GLUCAGON,HUMAN RECOMB 1 MG INJ IM PRN (21:30)
[2020-01-30] MEDS: LINEZOLID 600 MG/300 ML RTUPB IV SCH (22:08)
[2020-01-31] MEDS: IPRATROPIUM/ALBUTEROL 0.5-2.5 MG/3 ML AMPUL NEB SCH ×4 (00:25→23:52)
[2020-01-31] MEDS: NORMAL SALINE 1000 ML 1,000 ML with POTASSIUM CHLORIDE 20 MEQ, MAGNESIUM SULFATE 8 MEQ,... IV SCH ×10 (02:32→17:25)
--- NOTE | 2020-01-31 08:00 | PDOC CONSULTATION ---
Consultation Consult Date: 01/31/20 Attending physician:: OSCAR KERN Provider Consulted: GALA FINNEY Consult reason:: Patient with known stage III lung cancer here with altered mental status History of Present Illness Admission Date/PCP: 01/30/20 16:57 GALA FINNEY MD Patient complains of: Confusion, weakness History of Present Illness: DYLAN SWARTZ is a 59 year old female well-known to our oncology clinic with stage III lung cancer, last treatment was about 6 months ago. Since that time she has had worsening lung status, was admitted last month with heart failure. Prior to that admission we did extensive restaging imaging now about 6 weeks ago which indicated overall stability of disease in lungs. No other evidence of distant disease outside of the lungs. So she remains to be in a stable response post chemo/radiation then immunotherapy. She presents with altered mental status, confusion, blood sugar was only 40, she does have alcohol abuse history and tells me she was drinking prior to coming in. She only says she takes about 2 beers per day but maybe more. Unsure if this had anything to do with the mental status as well. CT of the head was done which only showed chronic changes. Past Medical History Cardiac Medical History: Reports: Congestive Heart Failure, Hypertension, Peripheral Vascular Disease Denies: Atrial Fibrillation, Coronary Artery Disease, DVT, Myocardial Infarction, Hyperlipidema, Pulmonary Embolism Pulmonary Medical History: Reports: Asthma, Bronchitis, Chronic Obstructive Pulmonary Disease (COPD), Pneumonia, Respiratory Failure - Chronic on home O2, Sleep Apnea Neurological Medical History: Denies: Ischemic CVA, Seizures Endocrine Medical History: Reports: Obesity Denies: Diabetes Mellitus Type 1, Diabetes Mellitus Type 2, Hyperthyroidism, Hypothyroidism Renal/ Medical History: Reports: None Malignancy Medical History: Reports: Lung Cancer GI Medical History: Reports: Gastroesophageal Reflux Disease Denies: Cirrhosis, Hepatitis Musculoskeltal Medical History: Reports: Arthritis, Gout Denies: Fibromyalgia Skin Medical History: Denies: Eczema, Psoriasis Psychiatric Medical History: Reports: Alcohol Dependency, Depression, Tobacco Dependency Hematology: Reports: Anemia Denies: Bleeding Tendencies Past Surgical History Past Surgical History: Reports: Tubal Ligation, Other - Unilateral salpingectomy, colonoscopy Social History Lives with: Family Smoking Status: Current Every Day Smoker Frequency of Alcohol Use: Heavy Hx Recreational Drug Use: Yes - Remote past, no current use Drugs: None Hx Prescription Drug Abuse: No - Advance Directive Resuscitation Status: Full Code Family History Family History: CAD, Malignancy Parental Family History Reviewed: Yes Children Family History Reviewed: Yes Sibling(s) Family History Reviewed.: Yes Medication/Allergy Home Medications: Albuterol Sulfate [Albuterol Sulfate Hfa] 1 puff IH Q6HP PRN 09/04/19 Fluticasone/Umeclidin/Vilanter [Trelegy 100-62.5-25 Mcg Ellipta 14 Dose/Dpi] 1 puff IH DAILY 09/04/19 Hydrocortisone [Hydrocortisone 2.5% Cream 28 gm (Clinic Use)] 1 applic TOP BID 09/04/19 Tussionex 5 ml PO Q12HP PRN 09/04/19 Nystatin [Mycostatin Cream 15 gm] 1 applic TP BID 7 Days #1 tube 11/22/19 Hydroxyzine Pamoate [Vistaril 50 mg Capsule] 50 mg PO DAILY 12/26/19 Furosemide [Lasix 20 mg Tablet] 20 mg PO DAILYP PRN #30 tablet 12/31/19 Magnesium Oxide [Mag-Oxide Magnesium] 200 mg PO BID #60 tablet 12/31/19 Potassium Chloride [Klor-Con 10 Meq Tablet ER] 20 meq PO BID #60 tablet.er 12/31/19 Allergies/Adverse Reactions: aspirin [Aspirin] Allergy (Verified 10/06/18 17:54) NSAIDS (Non-Steroidal Anti-Inflamma [Nsaids] Allergy (Verified 10/06/18 17:54) Penicillins Allergy (Verified 10/06/18 17:54) Review of Systems Constitutional: ABSENT: chills, fever(s), headache(s), weight gain, weight loss Eyes: ABSENT: visual disturbances Ears: ABSENT: hearing changes Cardiovascular: ABSENT: chest pain, dyspnea on exertion, edema, orthropnea, palpitations Respiratory: ABSENT: cough, hemoptysis Gastrointestinal: ABSENT: abdominal pain, constipation, diarrhea, hematemesis, hematochezia, nausea, vomiting Genitourinary: ABSENT: dysuria, hematuria Musculoskeletal: ABSENT: joint swelling Integumentary: ABSENT: rash, wounds Neurological: ABSENT: abnormal gait, abnormal speech, confusion, dizziness, focal weakness, syncope Psychiatric: ABSENT: anxiety, depression, homidical ideation, suicidal ideation Endocrine: ABSENT: cold intolerance, heat intolerance, polydipsia, polyuria Hematologic/Lymphatic: ABSENT: easy bleeding, easy bruising Physical Exam Vital Signs: Temp Pulse Resp BP Pulse Ox 97.4 F 110 H 20 114/88 H 91 L 01/31/20 00:58 01/31/20 00:58 01/31/20 00:58 01/31/20 00:58 01/31/20 00:58 Intake & Output 01/30/20 01/31/20 02/01/20 06:59 06:59 06:59 Intake Total 3501.2 Balance 3501.2 Weight 78.2 kg General appearance: PRESENT: no acute distress, well-developed, well-nourished Head exam: PRESENT: atraumatic, normocephalic Eye exam: PRESENT: conjunctiva pink, EOMI, PERRLA. ABSENT: scleral icterus Ear exam: PRESENT: normal external ear exam Mouth exam: PRESENT: moist, tongue midline Neck exam: ABSENT: carotid bruit, JVD, lymphadenopathy, thyromegaly Respiratory exam: PRESENT: clear to auscultation javier. ABSENT: rales, rhonchi, wheezes Cardiovascular exam: PRESENT: RRR. ABSENT: diastolic murmur, rubs, systolic murmur Pulses: PRESENT: normal dorsalis pedis pul Vascular exam: PRESENT: normal capillary refill GI/Abdominal exam: PRESENT: normal bowel sounds, soft. ABSENT: distended, guarding, mass, organolmegaly, rebound, tenderness Rectal exam: PRESENT: deferred Extremities exam: PRESENT: full ROM. ABSENT: calf tenderness, clubbing, pedal edema Neurological exam: PRESENT: alert, awake, oriented to person, oriented to place, oriented to time, oriented to situation, CN II-XII grossly intact. ABSENT: motor sensory deficit Psychiatric exam: PRESENT: appropriate affect, normal mood. ABSENT: homicidal ideation, suicidal ideation Skin exam: PRESENT: dry, intact, warm. ABSENT: cyanosis, rash Results Laboratory Results: 01/30/20 01/30/20 01/30/20 11:11 11:11 11:11 WBC 9.4 RBC 4.31 Hgb 13.7 Hct 41.0 MCV 95 MCH 31.8 MCHC 33.4 RDW 21.3 H Plt Count 190 Seg Neutrophils % 89.1 H Carbonic Acid HCO3/H2CO3 Ratio ABG pH ABG pCO2 ABG pO2 ABG HCO3 ABG O2 Saturation ABG Base Excess FiO2 Sodium 136.2 L Potassium 4.2 Chloride 93 L Carbon Dioxide 29 Anion Gap 14 BUN 8 Creatinine 0.43 L Est GFR ( Amer) > 60 Glucose 51 L Lactic Acid 1.0 Calcium 9.2 Total Bilirubin 0.9 AST 28 Alkaline Phosphatase 168 H Ammonia Total Protein 6.8 Albumin 3.0 L Urine Color Urine Appearance Urine pH Ur Specific [place] Urine Protein Urine Glucose (UA) Urine Ketones Urine Blood Urine Nitrite Ur Leukocyte Esterase Urine WBC (Auto) 01/30/20 01/30/20 01/30/20 12:17 13:40 17:21 WBC RBC Hgb Hct MCV MCH MCHC RDW Plt Count Seg Neutrophils % Carbonic Acid 1.49 H HCO3/H2CO3 Ratio 19:1 ABG pH 7.39 ABG pCO2 49.6 H ABG pO2 57.5 L ABG HCO3 29.2 H ABG O2 Saturation 89.3 L ABG Base Excess 3.4 FiO2 36% Sodium Potassium Chloride Carbon Dioxide Anion Gap BUN Creatinine Est GFR ( Amer) Glucose Lactic Acid Calcium Total Bilirubin AST Alkaline Phosphatase Ammonia < 8.7 L Total Protein Albumin Urine Color YELLOW Urine Appearance CLEAR Urine pH 5.0 Ur Specific [place] 1.018 Urine Protein 30 H Urine Glucose (UA) NEGATIVE Urine Ketones 80 H Urine Blood NEGATIVE Urine Nitrite NEGATIVE Ur Leukocyte Esterase NEGATIVE Urine WBC (Auto) 1 01/30/20 01/30/20 01/30/20 11:11 11:11 14:09 Creatine Kinase 34 CK-MB (CK-2) 1.85 Troponin I < 0.012 < 0.012 NT-Pro-B Natriuret Pep 2050 H Impressions: Chest X-Ray 01/30/20 11:31 IMPRESSION: STABLE MARKED CARDIOMEGALY. NO ACUTE RADIOGRAPHIC FINDING IN THE CHEST. Head CT 01/30/20 11:40 IMPRESSION: MILD CHRONIC CHANGES OF ATROPHY AND MICROVASCULAR ISCHEMIA. DIFFUSE SINUS DISEASE. NO ACUTE PROCESS. EVIDENCE OF ACUTE STROKE: NO. Assessment & Plan - Diagnosis (1) Altered mental status Qualifiers: Altered mental status type: disorientation Qualified Code(s): R41.0 - Disorientation, unspecified Is this a current diagnosis for this admission?: Yes Plan: Likely related to poor p.o. intake, may be alcohol intake, does not seem related at all to cancer changes. Her mental status is much better today, seems more baseline now (2) Lung cancer Qualifiers: Laterality: left Lung location: overlapping sites Qualified Code(s): C34.82 - Malignant neoplasm of overlapping sites of left bronchus and lung Is this a current diagnosis for this admission?: Yes Plan: Stage III lung cancer, last imaging done about 5 weeks ago indicated overall stability of lung findings. Next imaging is already scheduled for mid March. Further recommendations will be based upon that imaging. - Time Time Spent: Greater than 70 Minutes - Inpatient Certification Based on my medical assessment, after consideration of the patient's comorbidities, presenting symptoms, or acuity I expect that the services needed warrant INPATIENT care.: Yes I certify that my determination is in accordance with my understanding of Medicare's requirements for reasonable and necessary INPATIENT services [42 CFR 412.3e].: Yes Medical Necessity: Need for Neurological Checks, Risk of Complication if Not Cared For in Hospital
[2020-01-31 08:02] LABS: ABSOLUTE LYMPHOCYTES (AUTO) 0.8 10^3/uL (0.5-4.7); ABSOLUTE MONOCYTES (AUTO) 0.5 10^3/uL (0.1-1.4); ABSOLUTE NEUT (AUTO) 3.1 10^3/uL (1.7-8.2); BASOPHILS % (AUTO) 0.2 % (0-2); EOSINOPHILS % (AUTO) 0.4 % (0-6); HEMATOCRIT 33.1 % (36.0-47.0); MEAN CORPUSCULAR HEMOGLOBIN 32.1 pg (27.0-33.4); MEAN CORPUSCULAR HGB CONC 34.4 g/dL (32.0-36.0); MEAN CORPUSCULAR VOLUME 93 fl (80-97); MONOCYTES % (AUTO) 11.2 % (3-13); PLATELET COUNT 147 10^3/uL (150-450); RED BLOOD COUNT 3.55 10^6/uL (3.72-5.28); RED CELL DISTRIBUTION WIDTH 20.9 % (11.5-14.0); SEGMENTED NEUTROPHILS % (AUTO) 70.2 % (42-78); TOTAL CELLS COUNTED % (AUTO) 100 %; WHITE BLOOD COUNT 4.4 10^3/uL (4.0-10.5)
[2020-01-31 08:08] LABS: HEMOGLOBIN 11.4 g/dL (12.0-15.5)
[2020-01-31 08:14] LABS: ALBUMIN 2.6 g/dL (3.5-5.0); ALKALINE PHOSPHATASE 136 U/L (38-126); ANION GAP 5 (5-19); ASPARTATE AMINO TRANSFERASE 18 U/L (14-36); BILIRUBIN,DIRECT 0.5 mg/dL (0.0-0.4); BILIRUBIN,TOTAL 0.6 mg/dL (0.2-1.3); BLOOD UREA NITROGEN 5 mg/dL (7-20); CALCIUM 8.4 mg/dL (8.4-10.2); CARBON DIOXIDE 38 mmol/L (22-30); CHLORIDE 93 mmol/L (98-107); GLUCOSE 88 mg/dL (75-110); TOTAL PROTEIN 6.1 g/dL (6.3-8.2)
[2020-01-31] MEDS ORDERED: DEXTROSE 5%-NORMAL SALINE 1,000 ML IV PRN ×2 (08:28→18:17)
[2020-01-31 08:51] LABS: POTASSIUM 3.1 mmol/L (3.6-5.0)
[2020-01-31] MEDS: DOCUSATE SODIUM 100 MG CAPSULE PO SCH (09:42)
[2020-01-31] MEDS: FUROSEMIDE 20 MG TABLET PO SCH (09:43)
[2020-01-31] MEDS: ENOXAPARIN SODIUM INJ 40 MG/0.4 ML DISP.SYRIN SUBCUT SCH (09:47)
[2020-01-31] MEDS: LINEZOLID 600 MG/300 ML RTUPB IV SCH ×2 (09:49→22:17)
[2020-01-31] MEDS: ACETAMINOPHEN 325 MG TABLET PO PRN ×2 (10:16→20:30)
[2020-01-31] MEDS: LEVOFLOXACIN 500 MG/D5W RTU 500 MG/100 ML RTUPB IV SCH (10:57)
[2020-01-31] MEDS: SPIRONOLACTONE 25 MG TABLET PO SCH (10:59)
[2020-01-31] MEDS ORDERED: TUSSIONEX PO PRN (11:59)
[2020-01-31] MEDS ORDERED: ALBUTEROL SULFATE HFA (90 MCG/PUFF) 8 GM MDI (1 MDI/ER DISP) IH PRN (11:59)
[2020-01-31] MEDS: POTASSI CL 20 MEQ/50 ML RIDER 20 MEQ/50 ML RTUPB IV SCH ×2 (12:16→13:54)
[2020-01-31] MEDS ORDERED: ALBUTEROL SULFATE HFA (90 MCG/PUFF) 8 GM MDI IH PRN (12:33)
[2020-01-31] MEDS: GUAIFENESIN/D-METHORPHAN (200-20 MG) SYRUP 10 ML PO PRN (13:17)
[2020-01-31] MEDS: NYSTATIN 500000 UNIT/5 ML UDCUP PO SCH ×3 (14:58→17:26)
[2020-01-31] MEDS: COLLAGENASE CLOSTRIDIUM HIST. OINT 30 GM TOP SCH (15:26)
[2020-01-31] MEDS: MAGNESIUM OXIDE 400 MG TABLET PO SCH (17:26)
[2020-01-31] MEDS ORDERED: MAGNESIUM OXIDE 200 MG PO SCH (18:00)
--- NOTE | 2020-01-31 18:19 | PDOC PROGRESS REPORT ---
Subjective Progress Note for:: 01/31/20 Subjective:: DYLAN SWARTZ is a 59 year old female with a past medical history significant for CHF (LVEF 60%; moderate pulmonary hypertension), COPD, lung cancer (stage III; last chemo treatment in July. Followed by Dr. Robertson), home O2 dependent, sleep apnea, obesity, GERD, arthritis, depression, tobacco and alcohol dependency, opiate dependent chronic pain who was admitted 01/30/2020 with Altered mental status and acute CHF exacerbation. Patient was seen on morning rounds. She is found resting in bed, comfortably, on supplemental oxygen via nasal cannula at 3 L/min. She was alert and oriented to self and place but answered all other questions inconsistently; easily confused with tangential thinking, and repetitive statements. She was unable to provide any additional history of present illness. She was able to deny fever, chest pain, palpitations, abdominal pain, nausea. ROS is otherwise limited. She does appear to be comfortable and is not noted to be in any acute distress at this time. No concerns per nursing. Reason For Visit: AMS Physical Exam Vital Signs: Temp Pulse Resp BP Pulse Ox 98.3 F 92 19 107/68 100 01/31/20 15:00 01/31/20 16:17 01/31/20 16:17 01/31/20 16:17 01/31/20 16:17 Intake & Output 01/30/20 01/31/20 02/01/20 06:59 06:59 06:59 Intake Total 3501.2 1514 Balance 3501.2 1514 Weight 78.2 kg 78.2 kg General appearance: PRESENT: no acute distress, disheveled, obese, well-de veloped, well-nourished Head exam: PRESENT: atraumatic, normocephalic Eye exam: PRESENT: conjunctiva pink, EOMI, PERRLA. ABSENT: scleral icterus Mouth exam: PRESENT: moist, tongue midline Teeth exam: PRESENT: poor dentation Respiratory exam: PRESENT: prolonged expiratory phas, rhonchi - Throughout, symmetrical, unlabored, other - Baseline oxygen requirement. ABSENT: rales, wheezes Cardiovascular exam: PRESENT: RRR, +S1, +S2, tachycardia. ABSENT: diastolic murmur, rubs, systolic murmur Vascular exam: PRESENT: normal capillary refill GI/Abdominal exam: PRESENT: normal bowel sounds, soft. ABSENT: distended, guarding, mass, organolmegaly, rebound, tenderness Rectal exam: PRESENT: deferred Extremities exam: PRESENT: full ROM, +2 edema - tight, pitting, edema BLE extending to mid thigh. ABSENT: calf tenderness, clubbing, pedal edema Neurological exam: PRESENT: alert, awake, oriented to person, oriented to place, CN II-XII grossly intact, other - Disoriented; does not answer questions consistently, occasional noncomprehensible speech.. ABSENT: oriented to time, oriented to situation, motor sensory deficit Skin exam: PRESENT: dry, warm, other - Stage III wound to dorsum of right foot. ABSENT: cyanosis, rash Results Laboratory Results: 01/31/20 07:35 01/31/20 07:35 01/31/20 01/31/20 07:35 07:35 WBC 4.4 RBC 3.55 L Hgb 11.4 L D Hct 33.1 L MCV 93 MCH 32.1 MCHC 34.4 RDW 20.9 H Plt Count 147 L Seg Neutrophils % 70.2 Sodium 136.3 L Potassium 3.1 L D Chloride 93 L Carbon Dioxide 38 H Anion Gap 5 BUN 5 L Creatinine 0.37 L Est GFR ( Amer) > 60 Glucose 88 Calcium 8.4 Total Bilirubin 0.6 AST 18 Alkaline Phosphatase 136 H Total Protein 6.1 L Albumin 2.6 L 01/30/20 01/30/20 01/30/20 11:11 11:11 14:09 Creatine Kinase 34 CK-MB (CK-2) 1.85 Troponin I < 0.012 < 0.012 NT-Pro-B Natriuret Pep 0 H Impressions: Chest X-Ray 01/30/20 11:31 IMPRESSION: STABLE MARKED CARDIOMEGALY. NO ACUTE RADIOGRAPHIC FINDING IN THE CHEST. Head CT 01/30/20 11:40 IMPRESSION: MILD CHRONIC CHANGES OF ATROPHY AND MICROVASCULAR ISCHEMIA. DIFFUSE SINUS DISEASE. NO ACUTE PROCESS. EVIDENCE OF ACUTE STROKE: NO. Assessment and Plan - Diagnosis (1) Altered mental status Qualifiers: Altered mental status type: disorientation Qualified Code(s): R41.0 - Disorientation, unspecified Is this a current diagnosis for this admission?: Yes Plan: Slight improvement today. Multifactorial related to hypoglycemia, acute on chronic CHF exacerbation resulting in acute on chronic respiratory failure with hypercapnia and hypoxia, and acute infectious process (bilateral lower extremity cellulitis). Likely also compounded by the patient's opiate and alcohol dependence. Serum EtOH is negative. UDS positive for opiates only. No improvement with Narcan yesterday. Continue to hold narcotic medications. Supportive care and disease specific management as outlined below. (2) CHF (congestive heart failure) Qualifiers: Heart failure type: diastolic Heart failure chronicity: acute on chronic Qualified Code(s): I50.33 - Acute on chronic diastolic (congestive) heart failure Is this a current diagnosis for this admission?: Yes Plan: proBNP is elevated from baseline. Noted to have bilateral lower extremity edema. Echocardiogram (December 2019) showed LVEF 60%, moderate LV diastolic dysfunction, and moderate pulmonary hypertension. Unfortunately strict I&Os and weights have not been started. Other than furosemide, it does not appear that the patient is on antihypertensive or his CHF regimen medications. We will start Toprol XL Continue to diurese with furosemide and spironolactone. Cardiac diet. Daily weights, strict I&O's. (3) Fluid overload Qualifiers: Hypervolemia type: unspecified Qualified Code(s): E87.70 - Fluid overload, unspecified Is this a current diagnosis for this admission?: Yes Plan: Likely multifactorial r/t CHF, EtoH abuse w/ poor nutrition, and medication noncompliance. Will provide IV albumin today w/ IV furosemide. Start combination p.o. furosemide and spironolactone tomorrow. Consider RUQ u/s to evaluate for cirrhosis. Daily weights, strict I&Os (4) Hypoglycemia Is this a current diagnosis for this admission?: Yes Plan: Unclear etiology; patient is not diabetic or any on antidiabetic medications. She is not currently in sepsis. Likely secondary to poor nutrition We will continue D5W w/ accu checks every 4 hours. Encourage oral intake. (5) Lung cancer Qualifiers: Laterality: left Lung location: overlapping sites Qualified Code(s): C34.82 - Malignant neoplasm of overlapping sites of left bronchus and lung Is this a current diagnosis for this admission?: Yes Plan: Followed with Dr. Robertson. Spoke with Dr. Ware today, patient has stage III lung cancer. Last chemo treatment in July. Outpatient follow up. 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 Villasenor had recommended BKA. Patient adamantly declined. She was recommended to continue wet-to-dry dressing changes with outpatient wound care follow-up. Per ED provider, she was informed that the patient has been refusing/counseling with care appointments to the extent that she has been discharged from the practice. Wound bed is currently dry. Consult to wound care nurse for recommendations; start Santyl with dry dressing changes per their recommendations. (7) Alcohol dependency Qualifiers: Complication of substance-induced condition: with unspecified complication Is this a current diagnosis for this admission?: Yes Plan: Banana bag nightly. CIWA every 4 hours with as needed Ativan. (8) Tobacco abuse Is this a current diagnosis for this admission?: Yes Plan: Nicotine replacement therapy is provided. (9) Opiate dependence Qualifiers: Substance use status: uncomplicated Qualified Code(s): F11.20 - Opioid dependence, uncomplicated Is this a current diagnosis for this admission?: Yes Plan: [place] Controlled Substance database is verified; patient is prescribed buprenorphine 8 mg sublingual tab, #60 each month. Last prescription provided 01/08/2020. Patient presents with altered mentation. We will hold on opiates for improve orientation prior to resuming. Monitor for withdrawal. (10) Obesity Qualifiers: Body mass index: BMI 31.0-31.9 Is this a current diagnosis for this admission?: Yes Plan: BMI 31.9 Patient is placed on a cardiac diet. Lifestyle modification and dietary compliance will be encouraged. (11) COPD (chronic obstructive pulmonary disease) Qualifiers: COPD type: unspecified COPD Qualified Code(s): J44.9 - Chronic obstructive pulmonary disease, unspecified Is this a current diagnosis for this admission?: Yes Plan: Stable and without exacerbation. Will provide supplemental oxygen and BiPAP as needed to maintain saturations greater than 89%. Start on scheduled and as needed nebulizer treatments. Pulmonary toilet is encouraged with incentive spirometer, flutter valve, and early ambulation. No indications for steroid therapy at this time. (12) Chronic respiratory failure with hypercapnia Is this a current diagnosis for this admission?: Yes Plan: Management as above. (13) Bilateral lower leg cellulitis Is this a current diagnosis for this admission?: Yes Plan: Reviewed infectious disease and surgical notes from the patient's recent admission. She had multiple organisms grow from foot wound culture November this year. Both specialists recommended right BKA at that time; patient declined. Infectious disease recommended patient be treated with Zyvox and Levaquin. Patient completed a course of antibiotic therapy with improvement; discharged home with outpatient follow-up. Unfortunately, patient is reportedly noncompliant with her wound care appointments. Blood cultures pending. We will empirically resume IV Zyvox and Levaquin therapy. - Time Time Spent with patient: 35 or more minutes Medications reviewed and adjusted accordingly: Yes Anticipated Discharge Disposition: Home with Home Health Anticipated Discharge Timeframe: Undetermined
[2020-02-01] MEDS: NYSTATIN 500000 UNIT/5 ML UDCUP PO SCH ×5 (00:48→17:33)
[2020-02-01 05:45] LABS: HEMATOCRIT 33.6 % (36.0-47.0); HEMOGLOBIN 11.1 g/dL (12.0-15.5); MEAN CORPUSCULAR HEMOGLOBIN 31.4 pg (27.0-33.4); MEAN CORPUSCULAR HGB CONC 33.2 g/dL (32.0-36.0); MEAN CORPUSCULAR VOLUME 95 fl (80-97); PLATELET COUNT 130 10^3/uL (150-450); RED BLOOD COUNT 3.54 10^6/uL (3.72-5.28); RED CELL DISTRIBUTION WIDTH 21.2 % (11.5-14.0); WHITE BLOOD COUNT 3.8 10^3/uL (4.0-10.5)
[2020-02-01 06:08] LABS: ANION GAP 6 (5-19); BLOOD UREA NITROGEN 7 mg/dL (7-20); CALCIUM 8.6 mg/dL (8.4-10.2); CARBON DIOXIDE 36 mmol/L (22-30); CHLORIDE 94 mmol/L (98-107); GLUCOSE 87 mg/dL (75-110); POTASSIUM 3.5 mmol/L (3.6-5.0)
[2020-02-01] MEDS: IPRATROPIUM/ALBUTEROL 0.5-2.5 MG/3 ML AMPUL NEB SCH ×3 (07:55→23:54)
[2020-02-01] MEDS: SPIRONOLACTONE 25 MG TABLET PO SCH (09:05)
[2020-02-01] MEDS: FUROSEMIDE 20 MG TABLET PO SCH (09:06)
[2020-02-01] MEDS: METOPROLOL SUCCINATE 25 MG TAB.SR.24H PO SCH (09:06)
[2020-02-01] MEDS: DOCUSATE SODIUM 100 MG CAPSULE PO SCH (09:06)
[2020-02-01] MEDS: MAGNESIUM OXIDE 400 MG TABLET PO SCH ×2 (09:06→17:33)
[2020-02-01] MEDS: ENOXAPARIN SODIUM INJ 40 MG/0.4 ML DISP.SYRIN SUBCUT SCH (09:06)
[2020-02-01] MEDS: LEVOFLOXACIN 500 MG/D5W RTU 500 MG/100 ML RTUPB IV SCH (09:07)
[2020-02-01] MEDS: MAGNESIUM SULFATE/D5W 1 GM/100 ML RTUPB IV SCH ×2 (09:07→11:34)
[2020-02-01] MEDS: LINEZOLID 600 MG/300 ML RTUPB IV SCH (09:07)
[2020-02-01] MEDS: FLUTICASONE/UMECLIDIN/VILANTER 100-62.5-25 MCG/DOSE IH SCH (09:09)
[2020-02-01] MEDS: COLLAGENASE CLOSTRIDIUM HIST. OINT 30 GM TOP SCH (09:10)
[2020-02-01] MEDS ORDERED: POTASSIUM CHLORIDE 10 MEQ TABLET.ER PO ONE (12:00)
[2020-02-01] MEDS: LORAZEPAM INJ 2 MG/1 ML VIAL IV PRN ×2 (12:37→18:28)
--- NOTE | 2020-02-01 13:35 | PDOC PROGRESS REPORT ---
Subjective Progress Note for:: 02/01/20 Subjective:: No acute events overnight Reason For Visit: AMS Physical Exam Vital Signs: Temp Pulse Resp BP Pulse Ox 98.4 F 101 H 18 118/82 94 02/01/20 11:15 02/01/20 11:15 02/01/20 11:15 02/01/20 11:15 02/01/20 11:15 Intake & Output 01/31/20 02/01/20 02/02/20 06:59 06:59 06:59 Intake Total 3501.2 3980 100 Output Total 375 Balance 3501.2 3605 100 Weight 78.2 kg 70.6 kg General appearance: PRESENT: no acute distress, well-developed, well-nourished Head exam: PRESENT: atraumatic, normocephalic Eye exam: PRESENT: conjunctiva pink, EOMI, PERRLA. ABSENT: scleral icterus Ear exam: PRESENT: normal external ear exam Mouth exam: PRESENT: moist, tongue midline Neck exam: ABSENT: carotid bruit, JVD, lymphadenopathy, thyromegaly Respiratory exam: PRESENT: clear to auscultation javier. ABSENT: rales, rhonchi, wheezes Cardiovascular exam: PRESENT: RRR. ABSENT: diastolic murmur, rubs, systolic murmur Pulses: PRESENT: normal dorsalis pedis pul Vascular exam: PRESENT: normal capillary refill GI/Abdominal exam: PRESENT: normal bowel sounds, soft. ABSENT: distended, gu arding, mass, organolmegaly, rebound, tenderness Rectal exam: PRESENT: deferred Extremities exam: PRESENT: full ROM. ABSENT: calf tenderness, clubbing, pedal edema Neurological exam: PRESENT: alert, awake, oriented to person, oriented to place, oriented to time, oriented to situation, CN II-XII grossly intact. ABSENT: mot or sensory deficit Psychiatric exam: PRESENT: appropriate affect, normal mood. ABSENT: homicidal ideation, suicidal ideation Skin exam: PRESENT: dry, intact, warm. ABSENT: cyanosis, rash Results Laboratory Results: 02/01/20 05:17 02/01/20 05:17 02/01/20 02/01/20 05:17 05:17 WBC 3.8 L RBC 3.54 L Hgb 11.1 L Hct 33.6 L MCV 95 MCH 31.4 MCHC 33.2 RDW 21.2 H Plt Count 130 L Sodium 135.7 L Potassium 3.5 L Chloride 94 L Carbon Dioxide 36 H Anion Gap 6 BUN 7 Creatinine 0.40 L Est GFR ( Amer) > 60 Glucose 87 Calcium 8.6 Magnesium 1.5 L 01/30/20 01/30/20 01/30/20 11:11 11:11 14:09 Creatine Kinase 34 CK-MB (CK-2) 1.85 Troponin I < 0.012 < 0.012 NT-Pro-B Natriuret Pep 2049 H Impressions: Chest X-Ray 01/30/20 11:31 IMPRESSION: STABLE MARKED CARDIOMEGALY. NO ACUTE RADIOGRAPHIC FINDING IN THE CHEST. Head CT 01/30/20 11:40 IMPRESSION: MILD CHRONIC CHANGES OF ATROPHY AND MICROVASCULAR ISCHEMIA. DIFFUS E SINUS DISEASE. NO ACUTE PROCESS. EVIDENCE OF ACUTE STROKE: NO. Assessment & Plan - Diagnosis (1) Altered mental status Qualifiers: Altered mental status type: disorientation Qualified Code(s): R41.0 - Disorientation, unspecified Is this a current diagnosis for this admission?: Yes Plan: Seems to be improved probable multifactorial (2) Lung cancer Qualifiers: Laterality: left Lung location: overlapping sites Qualified Code(s): C34.82 - Malignant neoplasm of overlapping sites of left bronchus and lung Is this a current diagnosis for this admission?: Yes Plan: Not currently on therapy, next imaging is already ordered and is in May. We will follow next as an outpatient. - Time Time Spent with patient: 15-24 minutes
[2020-02-01] MEDS ORDERED: BUPRENORPHINE HCL 2 MG SUBLINGUAL TABLET SL ONE (14:00)
--- NOTE | 2020-02-01 14:51 | PDOC PROGRESS REPORT ---
Subjective Progress Note for:: 02/01/20 Subjective:: DYLAN SWARTZ is a 59 year old female with a past medical history significant for CHF (LVEF 60%; moderate pulmonary hypertension), COPD, lung cancer (stage III; last chemo treatment in July. Followed by Dr. Robertson), home O2 dependent, sleep apnea, obesity, GERD, arthritis, depression, tobacco and alcohol dependency, opiate dependent chronic pain who was admitted 01/30/2020 with Altered mental status and acute CHF exacerbation. Patient was seen on morning rounds. She is found resting in bed, comfortably, on supplemental oxygen via nasal cannula at 3 L/min. She was alert and oriented to self and place but answered all other questions incorrectly. She re petitively stated, "I'm here for observation. You should let me go now because you haven't told me what is wrong." Despite re-educating patient on her admission and progress, she continued to repeat that no one was telling her what was going on. Clearly, patient remains encephalopathy; therefore, ROS is limited as she is unable to answer my questions regarding symptoms. She does appear to be comfortable and is not noted to be in any acute distress at this time. Nursing calls this afternoon w/ concerns patient may be experiencing alcohol and/or opiate withdrawal. Reason For Visit: AMS Physical Exam Vital Signs: Temp Pulse Resp BP Pulse Ox 98.4 F 101 H 18 118/82 94 02/01/20 11:15 02/01/20 11:15 02/01/20 11:15 02/01/20 11:15 02/01/20 11:15 Intake & Output 01/31/20 02/01/20 02/02/20 06:59 06:59 06:59 Intake Total 3501.2 3980 340 Output Total 375 900 Balance 3501.2 3605 -560 Weight 78.2 kg 70.6 kg General appearance: PRESENT: no acute distress, disheveled, obese, well- developed, well-nourished Head exam: PRESENT: atraumatic, normocephalic Eye exam: PRESENT: conjunctiva pink, EOMI, PERRLA. ABSENT: scleral icterus Mouth exam: PRESENT: moist, tongue midline Teeth exam: PRESENT: poor dentation Respiratory exam: PRESENT: rhonchi, symmetrical, unlabored, other - baseline oxygen. ABSENT: rales, wheezes Cardiovascular exam: PRESENT: RRR, tachycardia - HR 90-110. ABSENT: diastolic murmur, rubs, systolic murmur Pulses: PRESENT: normal dorsalis pedis pul Vascular exam: PRESENT: normal capillary refill GI/Abdominal exam: PRESENT: normal bowel sounds, soft. ABSENT: distended, guarding, mass, organolmegaly, rebound, tenderness Rectal exam: PRESENT: deferred Extremities exam: PRESENT: full ROM, +1 edema - tight, pitting, edema BLE extending to mid thigh. ABSENT: calf tenderness, clubbing, pedal edema Neurological exam: PRESENT: alert, awake, oriented to person, oriented to place, CN II-XII grossly intact, other - disorientated. ABSENT: oriented to time, oriented to situation, motor sensory deficit Psychiatric exam: PRESENT: appropriate affect, normal mood. ABSENT: homicidal ideation, suicidal ideation Skin exam: PRESENT: dry, warm, other - wound to dorsum of right foot (POA). ABSENT: cyanosis, intact, rash Results Laboratory Results: 02/01/20 05:17 02/01/20 05:17 02/01/20 02/01/20 05:17 05:17 WBC 3.8 L RBC 3.54 L Hgb 11.1 L Hct 33.6 L MCV 95 MCH 31.4 MCHC 33.2 RDW 21.2 H Plt Count 130 L Sodium 135.7 L Potassium 3.5 L Chloride 94 L Carbon Dioxide 36 H Anion Gap 6 BUN 7 Creatinine 0.40 L Est GFR ( Amer) > 60 Glucose 87 Calcium 8.6 Magnesium 1.5 L 01/30/20 01/30/20 01/30/20 11:11 11:11 14:09 Creatine Kinase 34 CK-MB (CK-2) 1.85 Troponin I < 0.012 < 0.012 NT-Pro-B Natriuret Pep 2050 H Impressions: Chest X-Ray 01/30/20 11:31 IMPRESSION: STABLE MARKED CARDIOMEGALY. NO ACUTE RADIOGRAPHIC FINDING IN THE CHEST. Head CT 01/30/20 11:40 IMPRESSION: MILD CHRONIC CHANGES OF ATROPHY AND MICROVASCULAR ISCHEMIA. DIFFUSE SINUS DISEASE. NO ACUTE PROCESS. EVIDENCE OF ACUTE STROKE: NO. Assessment and Plan - Diagnosis (1) Altered mental status Qualifiers: Altered mental status type: disorientation Qualified Code(s): R41.0 - Disorientation, unspecified Is this a current diagnosis for this admission?: Yes Plan: Slight improvement. Multifactorial related to hypoglycemia, acute on chronic CHF exacerbation resulting in acute on chronic respiratory failure with hypercapnia and hypoxia, and acute infectious process (bilateral lower extremity cellulitis). Likely also compounded by the patient's opiate and alcohol dependence. Serum EtOH is negative. UDS positive for opiates only. Resume half dose Subutex r/t some evidence of early withdrawal Supportive care and disease specific management as outlined below. (2) CHF (congestive heart failure) Qualifiers: Heart failure type: diastolic Heart failure chronicity: acute on chronic Qualified Code(s): I50.33 - Acute on chronic diastolic (congestive) heart failure Is this a current diagnosis for this admission?: Yes Plan: proBNP is elevated from baseline. Noted to have bilateral lower extremity edema. Echocardiogram (December 2019) showed LVEF 60%, moderate LV diastolic dysfunction, and moderate pulmonary hypertension. Unfortunately strict I&Os and weights have not been started. Other than furosemide, it does not appear that the patient is on antihypertensive or his CHF regimen medications. We will start Toprol XL Continue to diurese with furosemide and spironolactone. Cardiac diet. Daily weights, strict I&O's. (3) Fluid overload Qualifiers: Hypervolemia type: unspecified Qualified Code(s): E87.70 - Fluid overload, unspecified Is this a current diagnosis for this admission?: Yes Plan: Likely multifactorial r/t CHF, EtoH abuse w/ poor nutrition, and medication noncompliance. Continue combination p.o. furosemide and spironolactone RUQ u/s to evaluate for cirrhosis. Daily weights, strict I&Os (4) Hypoglycemia Is this a current diagnosis for this admission?: Yes Plan: Unclear etiology; patient is not diabetic or any on antidiabetic medications. She is not currently in sepsis. Likely secondary to poor nutrition We will continue D5W w/ accu checks every 4 hours. Encourage oral intake. (5) Lung cancer Qualifiers: Laterality: left Lung location: overlapping sites Qualified Code(s): C34.82 - Malignant neoplasm of overlapping sites of left bronchus and lung Is this a current diagnosis for this admission?: Yes Plan: Followed with Dr. Robertson. Spoke with Dr. Ware today, patient has stage III lung cancer. Last chemo treatment in July. Outpatient follow up. 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 Villasenor had recommended BKA. Patient adamantly declined. She was recommended to continue wet-to-dry dressing changes with outpatient wound care follow-up. Per ED provider, she was informed that the patient has been refusing/counseling with care appointments to the extent that she has been discharged from the practice. Wound bed is currently dry. Consult to wound care nurse for recommendations; start Santyl with dry dressing changes per their recommendations. (7) Alcohol dependency Qualifiers: Complication of substance-induced condition: with unspecified complication Is this a current diagnosis for this admission?: Yes Plan: Banana bag nightly. CIWA every 4 hours with as needed Ativan. (8) Tobacco abuse Is this a current diagnosis for this admission?: Yes Plan: Nicotine replacement therapy is provided. (9) Opiate dependence Qualifiers: Substance use status: uncomplicated Qualified Code(s): F11.20 - Opioid de pendence, uncomplicated Is this a current diagnosis for this admission?: Yes Plan: [place] Controlled Substance database is verified; patient is prescribed buprenorphine 8 mg sublingual tab, #60 each month. Last prescription provided . Patient presents with altered mentation. Resume half home dose Subutex; 4 mg SL q12 hrs Monitor for withdrawal. (10) Obesity Qualifiers: Body mass index: BMI 31.0-31.9 Is this a current diagnosis for this admission?: Yes Plan: BMI 31.9 Patient is placed on a cardiac diet. Lifestyle modification and dietary compliance will be encouraged. (11) COPD (chronic obstructive pulmonary disease) Qualifiers: COPD type: unspecified COPD Qualified Code(s): J44.9 - Chronic obstructive pulmonary disease, unspecified Is this a current diagnosis for this admission?: Yes Plan: Stable and without exacerbation. Will provide supplemental oxygen and BiPAP as needed to maintain saturations greater than 89%. Start on scheduled and as needed nebulizer treatments. Pulmonary toilet is encouraged with incentive spirometer, flutter valve, and early ambulation. No indications for steroid therapy at this time. (12) Chronic respiratory failure with hypercapnia Is this a current diagnosis for this admission?: Yes Plan: Management as above. (13) Bilateral lower leg cellulitis Is this a current diagnosis for this admission?: Yes Plan: Reviewed infectious disease and surgical notes from the patient's recent admission. She had multiple organisms grow from foot wound culture November this year. Both specialists recommended right BKA at that time; patient declined. Infectious disease recommended patient be treated with Zyvox and Levaquin. Patient completed a course of antibiotic therapy with improvement; discharged home with outpatient follow-up. Unfortunately, patient is reportedly noncompliant with her wound care appointments. Blood cultures pending. Empirically placed on IV Zyvox and Levaquin therapy; transition to PO today. Jose Luis jensen #2 of 5. - Time Time Spent with patient: 35 or more minutes Medications reviewed and adjusted accordingly: Yes Anticipated Discharge Disposition: Home with Hospice Anticipated Discharge Timeframe: >72 hrs
[2020-02-01] MEDS: NORMAL SALINE 1000 ML 1,000 ML with POTASSIUM CHLORIDE 20 MEQ, MAGNESIUM SULFATE 8 MEQ,... IV SCH ×5 (17:32)
--- NOTE | 2020-02-01 18:56 | RADIOLOGY REPORT (SQ) ---
EXAM DESCRIPTION: U/S ABDOMEN LIMITED W/O DOP IMAGES COMPLETED DATE/TIME: 02/01/2020 4:30 pm REASON FOR STUDY: cirrhosis COMPARISON: None. TECHNIQUE: Dynamic and static grayscale images acquired of the abdomen and recorded on PACS. Additio nal selected color Doppler and spectral images recorded. LIMITATIONS: None. FINDINGS: PANCREAS: Interrogated but not visualized. Poor acoustical window. LIVER: No masses. Echotexture normal. LIVER VASCULATURE: Normal directional flow of the main portal vein and hepatic veins. GALLBLADDER: No stones. Normal wall thickness. No pericholecystic fluid. ULTRASOUND-DETECTED PARSONS'S SIGN: Negative. INTRAHEPATIC DUCTS AND COMMON DUCT: CBD and intrahepatic ducts normal caliber. No filling defects. INFERIOR VENA CAVA: Normal flow. AORTA: No aneurysm. RIGHT KIDNEY: Normal size. Normal echogenicity. No solid or suspicious masses. No hydronephrosis. No calcifications. PERITONEAL AND RIGHT PLEURAL SPACE: Minimal free fluid. OTHER: No other significant findings. IMPRESSION: Minimal ascites. Otherwise negative. TECHNICAL DOCUMENTATION: JOB ID: [id number] 2010 [email or web address]- All Rights Reserved Reading location - IP/workstation name: [email or web address]
[2020-02-01] MEDS ORDERED: FLUMAZENIL INJ 0.5 MG/5 ML VIAL ONE ×2 (20:05→20:16)
[2020-02-01] MEDS ORDERED: FUROSEMIDE INJ/PF 40 MG/4 ML SDV ONE (20:38)
[2020-02-01 20:55] LABS: ARTERIAL BLOOD BASE EXCESS 4.1 mmol/L; ARTERIAL BLOOD H2CO3 1.75 mmol/L (1.05-1.35); ARTERIAL BLOOD HCO3 31.1 mmol/L (20-24); ARTERIAL BLOOD O2 SATURATION 99.3 % (94-98); ARTERIAL BLOOD PCO2 58.2 mmHg (35-45); ARTERIAL BLOOD PH 7.35 (7.35-7.45); ARTERIAL BLOOD PO2 196.8 mmHg (80-100); ARTERIAL BLOOD TOTAL CO2 32.9 mmol/L (21-25)
[2020-02-01 20:59] LABS: ARTERIAL BLOOD FIO2 15 L
--- NOTE | 2020-02-01 21:37 | RADIOLOGY REPORT (SQ) ---
EXAM DESCRIPTION: X-RAY CHEST- One View CLINICAL HISTORY: Respiratory distress COMPARISON: January 30, 2020 TECHNIQUE: Single view of the chest. FINDINGS: There are overlying EKG leads. Right chest wall port is in stable position. There are low lung volumes with compressive changes. Mild patchy opacities are present overlying the bilateral lung bases with trace blunting of the bilateral costophrenic angles. The pulmonary vascularity is normal. The cardiomediastinal silhouette is persistently enlarged, stable when compared to prior exam. Osseous structures are stable in appearance. IMPRESSION: 1. Low lung volumes with compressive changes with mild nonspecific patchy bibasilar opacities and evidence of trace bilateral pleural effusions. 2. Redemonstration of enlargement of the cardiac silhouette.
[2020-02-01 22:31] LABS: ALBUMIN 2.6 g/dL (3.5-5.0); ALKALINE PHOSPHATASE 132 U/L (38-126); ANION GAP 7 (5-19); ASPARTATE AMINO TRANSFERASE 22 U/L (14-36); BILIRUBIN,DIRECT 0.4 mg/dL (0.0-0.4); BILIRUBIN,TOTAL 0.6 mg/dL (0.2-1.3); BLOOD UREA NITROGEN 8 mg/dL (7-20); CALCIUM 8.4 mg/dL (8.4-10.2); CARBON DIOXIDE 32 mmol/L (22-30); CHLORIDE 95 mmol/L (98-107); GLUCOSE 104 mg/dL (75-110); POTASSIUM 3.4 mmol/L (3.6-5.0)
[2020-02-01] MEDS: DEXTROSE 5%-NORMAL SALINE 1,000 ML IV PRN (23:00)
[2020-02-01] MEDS: BUPRENORPHINE HCL 2 MG SUBLINGUAL TABLET SL SCH (23:03)
[2020-02-01] MEDS: LINEZOLID 600 MG TABLET PO SCH (23:03)
[2020-02-02] MEDS: NYSTATIN 500000 UNIT/5 ML UDCUP PO SCH ×4 (00:12→18:25)
[2020-02-02] MEDS ORDERED: NORMAL SALINE 1000 ML 1,000 ML IV ONE (00:30)
[2020-02-02] MEDS ORDERED: NORMAL SALINE 500 ML IV ONE ×2 (00:30)
[2020-02-02] MEDS ORDERED: FLUMAZENIL INJ 0.5 MG/5 ML VIAL IV ONE ×3 (00:30)
[2020-02-02] MEDS ORDERED: FUROSEMIDE INJ/PF 40 MG/4 ML SDV IV ONE (00:30)
[2020-02-02] MEDS: DEXTROSE 50%-WATER SYRINGE 12.5 GM/25 ML DOSE IV PRN (03:18)
[2020-02-02] MEDS: DEXTROSE 50%-WATER SYRINGE 25 GM/50 ML DOSE IV PRN (03:40)
--- NOTE | 2020-02-02 06:06 | Progress Note ---
Provider Note Provider Note: During nursing evaluation patient with found to be altered baseline and unresponsive. Rapid response was called and during the evaluation patient was brought following home on, and nonresponsive to noxious stimuli. Vital signs showed low blood pressure though 80s/50s, HR in the 120s, and oxygen saturation in the 70s. She was placed on nonrebreather, and was started on IV bolus Blood sugar check was 122 ABG showed pH/PCO2/PO2 : 7.35/ 58/196 Chest x-ray showed cardiomegaly with no significant acute finding Patient was given flumazenil to reverse flow effect of benzodiazepine given earlier during the daytime Immediately after administration the patient regained consciousness became responsive to baseline Blood pressure slowly improved to 90s/60s and she was placed on BiPAP
[2020-02-02 06:56] LABS: HEMATOCRIT 33.9 % (36.0-47.0); HEMOGLOBIN 11.3 g/dL (12.0-15.5); MEAN CORPUSCULAR HGB CONC 33.4 g/dL (32.0-36.0); MEAN CORPUSCULAR VOLUME 96 fl (80-97); PLATELET COUNT 129 10^3/uL (150-450); RED BLOOD COUNT 3.54 10^6/uL (3.72-5.28); RED CELL DISTRIBUTION WIDTH 21.1 % (11.5-14.0); WHITE BLOOD COUNT 5.1 10^3/uL (4.0-10.5)
[2020-02-02 07:38] LABS: ALBUMIN 2.5 g/dL (3.5-5.0); ALKALINE PHOSPHATASE 119 U/L (38-126); ANION GAP 7 (5-19); ASPARTATE AMINO TRANSFERASE 20 U/L (14-36); BILIRUBIN,DIRECT 0.4 mg/dL (0.0-0.4); BILIRUBIN,TOTAL 0.5 mg/dL (0.2-1.3); BLOOD UREA NITROGEN 8 mg/dL (7-20); CALCIUM 8.2 mg/dL (8.4-10.2); CARBON DIOXIDE 32 mmol/L (22-30); CHLORIDE 97 mmol/L (98-107); GLUCOSE 134 mg/dL (75-110); POTASSIUM 3.4 mmol/L (3.6-5.0); TOTAL PROTEIN 5.7 g/dL (6.3-8.2)
[2020-02-02] MEDS: IPRATROPIUM/ALBUTEROL 0.5-2.5 MG/3 ML AMPUL NEB SCH ×3 (08:23→23:55)
[2020-02-02] MEDS ORDERED: SPIRONOLACTONE 25 MG TABLET PO SCH (10:00)
[2020-02-02] MEDS ORDERED: FUROSEMIDE 20 MG TABLET PO SCH (10:00)
[2020-02-02] MEDS: DOCUSATE SODIUM 100 MG CAPSULE PO SCH (11:19)
[2020-02-02] MEDS: LEVOFLOXACIN 500 MG TABLET PO SCH (11:22)
[2020-02-02] MEDS: MAGNESIUM OXIDE 400 MG TABLET PO SCH ×2 (11:22→17:25)
[2020-02-02] MEDS: COLLAGENASE CLOSTRIDIUM HIST. OINT 30 GM TOP SCH (11:23)
[2020-02-02] MEDS: BUPRENORPHINE HCL 2 MG SUBLINGUAL TABLET SL SCH (11:23)
[2020-02-02] MEDS: LINEZOLID 600 MG TABLET PO SCH ×2 (11:24→23:48)
[2020-02-02] MEDS: FLUTICASONE/UMECLIDIN/VILANTER 100-62.5-25 MCG/DOSE IH SCH (11:24)
[2020-02-02] MEDS: ENOXAPARIN SODIUM INJ 40 MG/0.4 ML DISP.SYRIN SUBCUT SCH (11:26)
--- NOTE | 2020-02-02 15:52 | PDOC PROGRESS REPORT ---
Subjective Progress Note for:: 02/02/20 Subjective:: DYLAN SWARTZ is a 59 year old female with a past medical history significant for CHF (LVEF 60%; moderate pulmonary hypertension), COPD, lung cancer (stage III; last chemo treatment in July. Followed by Dr. Robertson), home O2 dependent, sleep apnea, obesity, GERD, arthritis, depression, tobacco and alcohol dependency, opiate dependent chronic pain who was admitted 01/30/2020 with Altered mental status and acute CHF exacerbation. Patient was seen on morning rounds. She is found resting in bed, comfortably, on supplemental oxygen via BiPAP. She was sleeping soundly but did wake after I sent her name several times; made eye contact, mumbled, and quickly fell back to sleep. ROS is limited secondary to mental status. She does appear to be comfortable and is not noted to be in any acute distress at this time. Rapid response called overnight due to minimal responsiveness, hypoxia, and hypotension; improved with Romazicon. Patient had received as needed Ativan for potential alcohol withdrawal. Discussed with nursing that Ativan has been discontinued and we will reduce her scheduled narcotic regiment. No other concerns per nursing. Reason For Visit: AMS Physical Exam Vital Signs: Temp Pulse Resp BP Pulse Ox 97.4 F 72 16 98/72 L 99 02/02/20 08:39 02/02/20 08:39 02/02/20 14:12 02/02/20 11:15 02/02/20 14:12 Intake & Output 02/01/20 02/02/20 02/03/20 06:59 06:59 06:59 Intake Total 3980 5123 Output Total 375 2225 100 Balance 3605 2898 -100 Weight 70.6 kg 84.4 kg General appearance: PRESENT: no acute distress, disheveled, obese, well- developed, well-nourished Head exam: PRESENT: atraumatic, normocephalic Eye exam: PRESENT: conjunctiva pink, EOMI, PERRLA. ABSENT: scleral icterus Mouth exam: PRESENT: moist, tongue midline Teeth exam: PRESENT: poor dentation Respiratory exam: PRESENT: rhonchi - BiPAP, symmetrical, unlabored, other. ABSENT: rales, wheezes Cardiovascular exam: PRESENT: RRR, +S1, +S2. ABSENT: diastolic murmur, rubs, systolic murmur Pulses: PRESENT: normal dorsalis pedis pul Vascular exam: PRESENT: normal capillary refill GI/Abdominal exam: PRESENT: normal bowel sounds, soft. ABSENT: distended, guarding, mass, organolmegaly, rebound, tenderness Rectal exam: PRESENT: deferred Extremities exam: PRESENT: full ROM, +1 edema - BLE distal from the knees. Scant dependent edema to buttocks/perineum/dependent areas. ABSENT: calf tenderness, clubbing, pedal edema Neurological exam: PRESENT: CN II-XII grossly intact, other - Arousable/lethargic. ABSENT: motor sensory deficit Skin exam: PRESENT: dry, warm, other - wound to dorsum of right foot (POA). ABSENT: cyanosis, intact, rash Results Laboratory Results: 02/02/20 05:25 02/02/20 05:25 02/01/20 02/01/20 02/02/20 20:45 21:42 05:25 WBC 5.1 RBC 3.54 L Hgb 11.3 L Hct 33.9 L MCV 96 MCH 32.0 MCHC 33.4 RDW 21.1 H Plt Count 129 L Carbonic Acid 1.75 H HCO3/H2CO3 Ratio 17:1 ABG pH 7.35 ABG pCO2 58.2 H ABG pO2 196.8 H ABG HCO3 31.1 H ABG O2 Saturation 99.3 H ABG Base Excess 4.1 FiO2 15 L Sodium 133.8 L Potassium 3.4 L Chloride 95 L Carbon Dioxide 32 H Anion Gap 7 BUN 8 Creatinine 0.46 L Est GFR ( Amer) > 60 Glucose 104 Calcium 8.4 Magnesium Total Bilirubin 0.6 AST 22 Alkaline Phosphatase 132 H Total Protein 6.0 L Albumin 2.6 L 02/02/20 05:25 WBC RBC Hgb Hct MCV MCH MCHC RDW Plt Count Carbonic Acid HCO3/H2CO3 Ratio ABG pH ABG pCO2 ABG pO2 ABG HCO3 ABG O2 Saturation ABG Base Excess FiO2 Sodium 135.7 L Potassium 3.4 L Chloride 97 L Carbon Dioxide 32 H Anion Gap 7 BUN 8 Creatinine 0.50 L Est GFR ( Amer) > 60 Glucose 134 H Calcium 8.2 L Magnesium 1.7 Total Bilirubin 0.5 AST 20 Alkaline Phosphatase 119 Total Protein 5.7 L Albumin 2.5 L 01/30/20 01/30/20 01/30/20 11:11 11:11 14:09 Creatine Kinase 34 CK-MB (CK-2) 1.85 Troponin I < 0.012 < 0.012 NT-Pro-B Natriuret Pep 2049 H Impressions: Head CT 01/30/20 11:40 IMPRESSION: MILD CHRONIC CHANGES OF ATROPHY AND MICROVASCULAR ISCHEMIA. DIFFUSE SINUS DISEASE. NO ACUTE PROCESS. EVIDENCE OF ACUTE STROKE: NO. Abdomen Ultrasound 02/01/20 00:00 IMPRESSION: Minimal ascites. Otherwise negative. Chest X-Ray 02/01/20 00:00 IMPRESSION: 1. Low lung volumes with compressive changes with mild nonspecific patchy bibasilar opacities and evidence of trace bilateral pleural effusions. 2. Redemonstration of enlargement of the cardiac silhouette. Assessment and Plan - Diagnosis (1) Altered mental status Qualifiers: Altered mental status type: disorientation Qualified Code(s): R41.0 - Disorientation, unspecified Is this a current diagnosis for this admission?: Yes Plan: Slight improvement. Multifactorial related to hypoglycemia, acute on chronic CHF exacerbation resulting in acute on chronic respiratory failure with hypercapnia and hypoxia, and acute infectious process (bilateral lower extremity cellulitis). Likely also compounded by the patient's opiate and alcohol dependence. Serum EtOH is negative. UDS positive for opiates only. Decrease Subutex to 2 mg daily (utilizes 8 mg twice daily at home) Discontinue IV Ativan as this resulted in rapid response last night secondary to hypotension, hypoxia, decreased mentation Supportive care and disease specific management as outlined below. (2) CHF (congestive heart failure) Qualifiers: Heart failure type: diastolic Heart failure chronicity: acute on chronic Qualified Code(s): I50.33 - Acute on chronic diastolic (congestive) heart failure Is this a current diagnosis for this admission?: Yes Plan: proBNP is elevated from baseline. Noted to have bilateral lower extremity edema. Echocardiogram (December 2019) showed LVEF 60%, moderate LV diastolic dysfunct ion, and moderate pulmonary hypertension. Unfortunately strict I&Os and weights have not been started. Reinforced need for strict I's and O's with nursing. Other than furosemide, it does not appear that the patient is on antihypertensive or his CHF regimen medications. We will start Toprol XL Furosemide and spironolactone placed on hold secondary to hypotension Hold IV fluids today; received fluid boluses overnight Cardiac diet. Daily weights, strict I&O's. (3) Fluid overload Qualifiers: Hypervolemia type: unspecified Qualified Code(s): E87.70 - Fluid overload, unspecified Is this a current diagnosis for this admission?: Yes Plan: Likely multifactorial r/t CHF, EtoH abuse w/ poor nutrition, and medication noncompliance. Management of acute diastolic heart failure as above. RUQ u/s to evaluate for cirrhosis. Daily weights, strict I&Os (4) Hypoglycemia Is this a current diagnosis for this admission?: Yes Plan: Unclear etiology; patient is not diabetic or any on antidiabetic medications. She is not currently in sepsis. Likely secondary to poor nutrition and continued poor p.o. intake We will continue D5W w/ accu checks every 4 hours. Accu-Cheks remain low, therefore, will evaluate for other potential causes of hypoglycemia. We will check lactic acid, serum glucose, insulin, C-peptide, beta hydroxybutyrate, and proinsulin levels. Encourage oral intake. Hypoglycemia protocol. (5) Lung cancer Qualifiers: Laterality: left Lung location: overlapping sites Qualified Code(s): C34.82 - Malignant neoplasm of overlapping sites of left bronchus and lung Is this a current diagnosis for this admission?: Yes Plan: Followed with Dr. Robertson. Spoke with Dr. Ware today, patient has stage III lung cancer. Last chemo treatment in July. Outpatient follow up. 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 Villasenor had recommended BKA. Patient adamantly declined. She was recommended to continue wet-to-dry dressing changes with outpatient wound care follow-up. Per ED provider, she was informed that the patient has been refusing/counseling with care appointments to the extent that she has been discharged from the practice. Wound bed is currently dry. Consult to wound care nurse for recommendations; start Santyl with dry dressing changes per their recommendations. (7) Alcohol dependency Qualifiers: Complication of substance-induced condition: with unspecified complication Is this a current diagnosis for this admission?: Yes Plan: Banana bag nightly. Monitor for clear evidence of alcohol withdrawal. (8) Tobacco abuse Is this a current diagnosis for this admission?: Yes Plan: Nicotine replacement therapy is provided. (9) Opiate dependence Qualifiers: Substance use status: uncomplicated Qualified Code(s): F11.20 - Opioid dependence, uncomplicated Is this a current diagnosis for this admission?: Yes Plan: [place] Controlled Substance database is verified; patient is prescribed buprenorphine 8 mg sublingual tab, #60 each month. Last prescription provided 01/08/2020. Patient presents with altered mentation. Subutex 2 mg SL daily; utilizes 8 mg twice daily at home. Monitor for withdrawal. (10) Obesity Qualifiers: Body mass index: BMI 31.0-31.9 Is this a current diagnosis for this admission?: Yes Plan: BMI 31.9 Patient is placed on a cardiac diet. Lifestyle modification and dietary compliance will be encouraged. (11) COPD (chronic obstructive pulmonary disease) Qualifiers: COPD type: unspecified COPD Qualified Code(s): J44.9 - Chronic obstructive pulmonary disease, unspecified Is this a current diagnosis for this admission?: Yes Plan: Stable and without exacerbation. Will provide supplemental oxygen and BiPAP as needed to maintain saturations greater than 89%. Start on scheduled and as needed nebulizer treatments. Pulmonary toilet is encouraged with incentive spirometer, flutter valve, and early ambulation. No indications for steroid therapy at this time. (12) Chronic respiratory failure with hypercapnia Is this a current diagnosis for this admission?: Yes Plan: Follow-up ABG pending Continue BiPAP support Remaining management as above. (13) Bilateral lower leg cellulitis Is this a current diagnosis for this admission?: Yes Plan: Reviewed infectious disease and surgical notes from the patient's recent admission. She had multiple organisms grow from foot wound culture November this year. Both specialists recommended right BKA at that time; patient declined. Infectious disease recommended patient be treated with Zyvox and Levaquin. Patient completed a course of antibiotic therapy with improvement; discharged home with outpatient follow-up. Unfortunately, patient is reportedly noncompliant with her wound care appointments. Blood cultures negative at 72 hours Empirically placed on IV Zyvox and Levaquin therapy; transition to PO today. Day #3 of 5. - Time Time Spent with patient: 35 or more minutes Medications reviewed and adjusted accordingly: Yes Anticipated Discharge Disposition: undetermined Anticipated Discharge Timeframe: >72 hrs
[2020-02-02 16:06] LABS: ARTERIAL BLOOD BASE EXCESS 3.6 mmol/L; ARTERIAL BLOOD H2CO3 1.77 mmol/L (1.05-1.35); ARTERIAL BLOOD HCO3 30.7 mmol/L (20-24); ARTERIAL BLOOD O2 SATURATION 92.3 % (94-98); ARTERIAL BLOOD PCO2 58.7 mmHg (35-45); ARTERIAL BLOOD PH 7.34 (7.35-7.45); ARTERIAL BLOOD PO2 68.9 mmHg (80-100); ARTERIAL BLOOD TOTAL CO2 32.5 mmol/L (21-25)
[2020-02-02 16:07] LABS: ARTERIAL BLOOD FIO2 40%
[2020-02-02] MEDS: NORMAL SALINE 1000 ML 1,000 ML with POTASSIUM CHLORIDE 20 MEQ, MAGNESIUM SULFATE 8 MEQ,... IV SCH ×5 (17:25)
[2020-02-02] MEDS: METOPROLOL SUCCINATE 25 MG TAB.SR.24H PO SCH (17:26)
--- NOTE | 2020-02-02 19:16 | EKG REPORT ---
SEVERITY:- ABNORMAL ECG - SINUS TACHYCARDIA PROBABLE INFERIOR INFARCT, AGE INDETERMINATE : Confirmed by: Beny Bergeron MD 02-Feb-2020 19:15:57
[2020-02-02] MEDS: DEXTROSE 5%-NORMAL SALINE 1,000 ML IV PRN (20:13)
[2020-02-02 22:53] LABS: ARTERIAL BLOOD BASE EXCESS 2.3 mmol/L; ARTERIAL BLOOD H2CO3 1.54 mmol/L (1.05-1.35); ARTERIAL BLOOD HCO3 28.4 mmol/L (20-24); ARTERIAL BLOOD O2 SATURATION 89.1 % (94-98); ARTERIAL BLOOD PCO2 51.1 mmHg (35-45); ARTERIAL BLOOD PH 7.36 (7.35-7.45); ARTERIAL BLOOD PO2 58.5 mmHg (80-100)
--- NOTE | 2020-02-02 23:34 | RADIOLOGY REPORT (SQ) ---
XR CHEST 1 VIEW HISTORY: Respiratory distress. COMPARISON: 02/01/2020 FINDINGS: The heart size is enlarged with mild central pulmonary vascular congestion. No consolidation, pleural effusion, or pneumothorax is seen. No acute bony findings are seen. The right central venous line is stable in position. There is mild atelectasis at the lung bases. IMPRESSION: Mild pulmonary edema pattern, without pleural effusions or focal consolidation.
[2020-02-02] MEDS ORDERED: FUROSEMIDE INJ/PF 20 MG/2 ML SDV ONE (23:53)
[2020-02-03] MEDS: NYSTATIN 500000 UNIT/5 ML UDCUP PO SCH ×5 (00:13→23:02)
[2020-02-03] MEDS ORDERED: FUROSEMIDE INJ/PF 20 MG/2 ML SDV IV ONE (00:15)
[2020-02-03] MEDS: DEXTROSE 5%-NORMAL SALINE 1,000 ML IV PRN ×3 (03:28→20:02)
[2020-02-03] MEDS: LINEZOLID 600 MG TABLET PO SCH ×3 (05:19→21:02)
[2020-02-03 05:24] LABS: ABSOLUTE LYMPHOCYTES (AUTO) 0.9 10^3/uL (0.5-4.7); ABSOLUTE MONOCYTES (AUTO) 0.6 10^3/uL (0.1-1.4); ABSOLUTE NEUT (AUTO) 2.7 10^3/uL (1.7-8.2); BASOPHILS % (AUTO) 0.3 % (0-2); EOSINOPHILS % (AUTO) 0.3 % (0-6); HEMATOCRIT 32.7 % (36.0-47.0); HEMOGLOBIN 10.7 g/dL (12.0-15.5); LYMPHOCYTES % (AUTO) 20.6 % (13-45); MEAN CORPUSCULAR HEMOGLOBIN 31.2 pg (27.0-33.4); MEAN CORPUSCULAR HGB CONC 32.8 g/dL (32.0-36.0); MEAN CORPUSCULAR VOLUME 95 fl (80-97); MONOCYTES % (AUTO) 13.5 % (3-13); PLATELET COUNT 123 10^3/uL (150-450); RED BLOOD COUNT 3.43 10^6/uL (3.72-5.28); RED CELL DISTRIBUTION WIDTH 20.6 % (11.5-14.0); SEGMENTED NEUTROPHILS % (AUTO) 65.3 % (42-78); TOTAL CELLS COUNTED % (AUTO) 100 %; WHITE BLOOD COUNT 4.2 10^3/uL (4.0-10.5)
[2020-02-03 05:48] LABS: ALBUMIN 2.5 g/dL (3.5-5.0); ALKALINE PHOSPHATASE 129 U/L (38-126); ANION GAP 7 (5-19); ASPARTATE AMINO TRANSFERASE 20 U/L (14-36); BILIRUBIN,DIRECT 0.4 mg/dL (0.0-0.4); BILIRUBIN,TOTAL 0.5 mg/dL (0.2-1.3); BLOOD UREA NITROGEN 11 mg/dL (7-20); CALCIUM 8.8 mg/dL (8.4-10.2); CARBON DIOXIDE 32 mmol/L (22-30); CHLORIDE 99 mmol/L (98-107); GLUCOSE 111 mg/dL (75-110); POTASSIUM 3.7 mmol/L (3.6-5.0)
[2020-02-03] MEDS: IPRATROPIUM/ALBUTEROL 0.5-2.5 MG/3 ML AMPUL NEB SCH ×2 (08:07→15:39)
[2020-02-03] MEDS: DOCUSATE SODIUM 100 MG CAPSULE PO SCH (09:53)
[2020-02-03] MEDS: MAGNESIUM OXIDE 400 MG TABLET PO SCH ×2 (09:54→18:30)
[2020-02-03] MEDS: LEVOFLOXACIN 500 MG TABLET PO SCH (09:54)
[2020-02-03] MEDS: FLUTICASONE/UMECLIDIN/VILANTER 100-62.5-25 MCG/DOSE IH SCH (09:55)
[2020-02-03] MEDS: METOPROLOL SUCCINATE 25 MG TAB.SR.24H PO SCH (09:55)
[2020-02-03] MEDS: ENOXAPARIN SODIUM INJ 40 MG/0.4 ML DISP.SYRIN SUBCUT SCH (09:56)
[2020-02-03] MEDS ORDERED: BUPRENORPHINE HCL 2 MG SUBLINGUAL TABLET SL SCH (10:00)
[2020-02-03] MEDS: COLLAGENASE CLOSTRIDIUM HIST. OINT 30 GM TOP SCH (12:00)
[2020-02-03] MEDS: ACETAMINOPHEN 325 MG TABLET PO PRN (13:10)
[2020-02-03] MEDS: GUAIFENESIN/D-METHORPHAN (200-20 MG) SYRUP 10 ML PO PRN (13:10)
--- NOTE | 2020-02-03 15:46 | PDOC PROGRESS REPORT ---
Subjective Progress Note for:: 02/03/20 Subjective:: DYLAN SWARTZ is a 59 year old female with a past medical history significant for CHF (LVEF 60%; moderate pulmonary hypertension), COPD, lung cancer (stage III; last chemo treatment in July. Followed by Dr. Robertson), home O2 dependent, sleep apnea, obesity, GERD, arthritis, depression, tobacco and alcohol dependency, opiate dependent chronic pain who was admitted 01/30/2020 with Altered mental status and acute CHF exacerbation. Patient was seen on morning rounds. She is found resting in bed, comfortably, on supplemental oxygen via NC at 3lpm. She was awake and eating her breakfast. She is A&O x4; able to tell me her full name, full name of the hospital, the year and president, and that she was admitted for "delirium." She states that she is feeling well and has no complaints at this time. She specifically denies chest pain, palpitations, dyspnea, cough, abdominal pain, nausea, vomiting, diarrhea. She does report chronic bilateral lower extremity discomfort unchanged from her usual. She has no questions or concerns at this time No concerns per nursing. Reason For Visit: AMS Physical Exam Vital Signs: Temp Pulse Resp BP Pulse Ox 98.4 F 102 H 18 93/55 L 99 02/03/20 12:00 02/03/20 12:00 02/03/20 12:00 02/03/20 12:00 02/03/20 12:00 Intake & Output 02/02/20 02/03/20 02/04/20 06:59 06:59 06:59 Intake Total 5123 2386 118 Output Total 2225 1900 150 Balance 2898 486 -32 Weight 84.4 kg 84.3 kg 84.3 kg General appearance: PRESENT: no acute distress, disheveled, obese, well- developed, well-nourished Head exam: PRESENT: atraumatic, normocephalic Eye exam: PRESENT: conjunctiva pink, EOMI, PERRLA. ABSENT: scleral icterus Mouth exam: PRESENT: moist, tongue midline Respiratory exam: PRESENT: clear to auscultation javier, symmetrical, unlabored, other - Baseline oxygen requirement. ABSENT: rales, rhonchi, wheezes Cardiovascular exam: PRESENT: RRR. ABSENT: diastolic murmur, rubs, systolic murmur Pulses: PRESENT: +1 pedal pulses bilateral Vascular exam: PRESENT: normal capillary refill GI/Abdominal exam: PRESENT: normal bowel sounds, soft. ABSENT: distended, guarding, mass, organolmegaly, rebound, tenderness Rectal exam: PRESENT: deferred Gentrourinary exam: PRESENT: indwelling catheter Extremities exam: PRESENT: full ROM, +1 edema - Tight, nonpitting edema, distal from knees. ABSENT: calf tenderness, clubbing, pedal edema Neurological exam: PRESENT: alert, awake, oriented to person, oriented to place, oriented to time, oriented to situation, CN II-XII grossly intact. ABSENT: motor sensory deficit Psychiatric exam: PRESENT: appropriate affect, normal mood. ABSENT: homicidal ideation, suicidal ideation Skin exam: PRESENT: dry, warm, other - wound to dorsum of right foot (POA). ABSENT: cyanosis, rash Results Laboratory Results: 02/03/20 04:38 02/03/20 04:38 02/02/20 02/02/20 02/02/20 15:55 18:10 18:10 WBC RBC Hgb Hct MCV MCH MCHC RDW Plt Count Seg Neutrophils % Carbonic Acid 1.77 H HCO3/H2CO3 Ratio 17:1 ABG pH 7.34 L ABG pCO2 58.7 H ABG pO2 68.9 L ABG HCO3 30.7 H ABG O2 Saturation 92.3 L ABG Base Excess 3.6 FiO2 40% Sodium Potassium Chloride Carbon Dioxide Anion Gap BUN Creatinine Est GFR ( Amer) Glucose 108 Lactic Acid 1.0 Calcium Total Bilirubin AST Alkaline Phosphatase Total Protein Albumin 02/02/20 02/03/20 02/03/20 22:15 04:38 04:38 WBC 4.2 RBC 3.43 L Hgb 10.7 L Hct 32.7 L MCV 95 MCH 31.2 MCHC 32.8 RDW 20.6 H Plt Count 123 L Seg Neutrophils % 65.3 Carbonic Acid 1.54 H HCO3/H2CO3 Ratio 18:1 ABG pH 7.36 ABG pCO2 51.1 H ABG pO2 58.5 L ABG HCO3 28.4 H ABG O2 Saturation 89.1 L ABG Base Excess 2.3 FiO2 4.0 Sodium 137.5 Potassium 3.7 Chloride 99 Carbon Dioxide 32 H Anion Gap 7 BUN 11 Creatinine 0.53 Est GFR ( Amer) > 60 Glucose 111 H Lactic Acid Calcium 8.8 Total Bilirubin 0.5 AST 20 Alkaline Phosphatase 129 H Total Protein 6.0 L Albumin 2.5 L 01/30/20 01/30/20 01/30/20 11:11 11:11 14:09 Creatine Kinase 34 CK-MB (CK-2) 1.85 Troponin I < 0.012 < 0.012 NT-Pro-B Natriuret Pep 2050 H Impressions: Head CT 01/30/20 11:40 IMPRESSION: MILD CHRONIC CHANGES OF ATROPHY AND MICROVASCULAR ISCHEMIA. D IFFUSE SINUS DISEASE. NO ACUTE PROCESS. EVIDENCE OF ACUTE STROKE: NO. Abdomen Ultrasound 02/01/20 00:00 IMPRESSION: Minimal ascites. Otherwise negative. Chest X-Ray 02/02/20 00:00 IMPRESSION: Mild pulmonary edema pattern, without pleural effusions or focal consolidation. Assessment and Plan - Diagnosis (1) Altered mental status Qualifiers: Altered mental status type: disorientation Qualified Code(s): R41.0 - Disorientation, unspecified Is this a current diagnosis for this admission?: Yes Plan: Resolved; now at baseline Multifactorial related to hypoglycemia, acute on chronic CHF exacerbation resulting in acute on chronic respiratory failure with hypercapnia and hypoxia, and acute infectious process (bilateral lower extremity cellulitis). Likely also compounded by the patient's opiate and alcohol dependence. Serum EtOH is negative. UDS positive for opiates only. Laboratory evaluation is benign No evidence of additional infectious process. BLE cellulitis is improved. Head CT is negative for acute findings. Decrease Subutex to 2 mg twice daily (utilizes 8 mg twice daily at home) Discontinue IV Ativan as this resulted in hypotension, hypoxia, and decreased mentation x36hrs. Supportive care and disease specific management as outlined below. (2) CHF (congestive heart failure) Qualifiers: Heart failure type: diastolic Heart failure chronicity: acute on chronic Qualified Code(s): I50.33 - Acute on chronic diastolic (congestive) heart failure Is this a current diagnosis for this admission?: Yes Plan: proBNP is elevated from baseline. Noted to have bilateral lower extremity edema; being treated for cellulitis. Echocardiogram (December 2019) showed LVEF 60%, moderate LV diastolic dysf unction, and moderate pulmonary hypertension. Unfortunately strict I&Os and weights have not been started. Reinforced need for strict I&O's with nursing. Resume home dose furosemide. We will start Toprol XL 12.5 mg daily Continues to receive IVF (D5 r/t hypoglycemia) Cardiac diet. Daily weights, strict I&O's. (3) Hypoglycemia Is this a current diagnosis for this admission?: Yes Plan: Unclear etiology; patient is not diabetic or any on antidiabetic medications. She is not currently in sepsis. Likely secondary to poor nutrition and continued poor p.o. intake We will continue D5W w/ accu checks every 4 hours. Glucose continues to remain borderline and she has required multiple amps of dextrose this admission. Hopefully will improve now that patient is awake and eating. Evaluating for other potential causes of hypoglycemia: Lactic acid 1 Serum glucose 108 Insulin, C-peptide, beta hydroxybutyrate, and proinsulin levels are pending. Encourage oral intake. Hypoglycemia protocol. (4) Lung cancer Qualifiers: Laterality: left Lung location: overlapping sites Qualified Code(s): C34.82 - Malignant neoplasm of overlapping sites of left bronchus and lung Is this a current diagnosis for this admission?: Yes Plan: Followed with Dr. Robertson. Spoke with Dr. Ware today, patient has stage III lung cancer. Last chemo treatment in July. Outpatient follow up. 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 Villasenor had recommended BKA. Patient adamantly declined. She was recommended to continue wet-to-dry dressing changes with outpatient wound care follow-up. Per ED provider, she was informed that the patient has been refusing/counseling with care appointments to the extent that she has been discharged from the practice. Wound bed is currently dry. Consult to wound care nurse for recommendations; continue Santyl with dry dressing changes per their recommendations. (6) Alcohol dependency Qualifiers: Complication of substance-induced condition: with unspecified complication Is this a current diagnosis for this admission?: Yes Plan: Daily thiamin and folic acid replacement. No evidence of alcohol withdrawal. Avoid benzodiazepines; patient developed hypotention, worsening hypoxia, and obtunded mental status following prn ativan. Improved with Romazicon but took an additional 36-48 hours for patient's mentation to return to baseline. (7) Tobacco abuse Is this a current diagnosis for this admission?: Yes Plan: Smoking cessation encouraged. Nicotine replacement therapy is provided. (8) Opiate dependence Qualifiers: Substance use status: uncomplicated Qualified Code(s): F11.20 - Opioid dependence, uncomplicated Is this a current diagnosis for this admission?: Yes Plan: [place] Controlled Substance database is verified; patient is prescribed buprenorphine 8 mg sublingual tab, #60 each month. Last prescription provided 01/08/2020. Patient presents with altered mentation; significantly improved today. Subutex 2 mg SL twice daily; utilizes 8 mg twice daily at home. Monitor for withdrawal. (9) Obesity Qualifiers: Body mass index: BMI 31.0-31.9 Is this a current diagnosis for this admission?: Yes Plan: BMI 34 Patient is placed on a cardiac diet. Lifestyle modification and dietary compliance will be encouraged. (10) COPD (chronic obstructive pulmonary disease) Qualifiers: COPD type: unspecified COPD Qualified Code(s): J44.9 - Chronic obstructive pulmonary disease, unspecified Is this a current diagnosis for this admission?: Yes Plan: Stable and without exacerbation. Will provide supplemental oxygen and BiPAP as needed to maintain saturations greater than 89%. Start on scheduled and as needed nebulizer treatments. Pulmonary toilet is encouraged with incentive spirometer, flutter valve, and early ambulation. No indications for steroid therapy at this time. (11) Chronic respiratory failure with hypercapnia Is this a current diagnosis for this admission?: Yes Plan: ABGs show chronic respiraty failure with hypercapnia and hypoxia. Continue supplemental oxygen and BiPAP support Remaining management as above. (12) Bilateral lower leg cellulitis Is this a current diagnosis for this admission?: Yes Plan: Reviewed infectious disease and surgical notes from the patient's recent admission. She had multiple organisms grow from foot wound culture November this year. Both specialists recommended right BKA at that time; patient declined. Infectious disease recommended patient be treated with Zyvox and Levaquin. Patient completed a course of antibiotic therapy with improvement; discharged home with outpatient follow-up. Unfortunately, patient is reportedly noncomplia nt with her wound care appointments. Blood cultures negative at 72 hours Empirically placed on IV Zyvox and Levaquin therapy; transition to PO today. Day #4 of 5. (13) Fluid overload Qualifiers: Hypervolemia type: unspecified Qualified Code(s): E87.70 - Fluid overload, unspecified Is this a current diagnosis for this admission?: Yes Plan: Appears Euvolemic at present Likely multifactorial r/t CHF, EtoH abuse w/ poor nutrition, and medication noncompliance. Management of acute diastolic heart failure as above. RUQ u/s is benign Daily weights, strict I&Os - Time Time Spent with patient: 35 or more minutes Medications reviewed and adjusted accordingly: Yes Anticipated Discharge Disposition: Custodial Facility Anticipated Discharge Timeframe: within 48 hours
[2020-02-03] MEDS: MIDODRINE HCL 5 MG TABLET PO SCH (18:30)
[2020-02-04] MEDS: IPRATROPIUM/ALBUTEROL 0.5-2.5 MG/3 ML AMPUL NEB SCH ×3 (00:26→16:09)
[2020-02-04] MEDS: NYSTATIN 500000 UNIT/5 ML UDCUP PO SCH ×4 (05:01→23:04)
[2020-02-04] MEDS: DEXTROSE 5%-NORMAL SALINE 1,000 ML IV PRN ×2 (05:41→20:13)
[2020-02-04 08:04] LABS: HEMATOCRIT 32.3 % (36.0-47.0); HEMOGLOBIN 10.7 g/dL (12.0-15.5); MEAN CORPUSCULAR HEMOGLOBIN 31.4 pg (27.0-33.4); MEAN CORPUSCULAR HGB CONC 33.3 g/dL (32.0-36.0); MEAN CORPUSCULAR VOLUME 94 fl (80-97); PLATELET COUNT 105 10^3/uL (150-450); RED BLOOD COUNT 3.42 10^6/uL (3.72-5.28); RED CELL DISTRIBUTION WIDTH 20.1 % (11.5-14.0); WHITE BLOOD COUNT 4.8 10^3/uL (4.0-10.5)
[2020-02-04 08:20] LABS: ANION GAP 7 (5-19); BLOOD UREA NITROGEN 13 mg/dL (7-20); CALCIUM 8.7 mg/dL (8.4-10.2); CARBON DIOXIDE 28 mmol/L (22-30); CHLORIDE 101 mmol/L (98-107); GLUCOSE 94 mg/dL (75-110); POTASSIUM 3.9 mmol/L (3.6-5.0)
[2020-02-04] MEDS: FUROSEMIDE 20 MG TABLET PO SCH (09:46)
[2020-02-04] MEDS: ENOXAPARIN SODIUM INJ 40 MG/0.4 ML DISP.SYRIN SUBCUT SCH (09:46)
[2020-02-04] MEDS: MAGNESIUM OXIDE 400 MG TABLET PO SCH ×2 (09:47→17:13)
[2020-02-04] MEDS: LEVOFLOXACIN 500 MG TABLET PO SCH (09:47)
[2020-02-04] MEDS: DOCUSATE SODIUM 100 MG CAPSULE PO SCH (09:47)
[2020-02-04] MEDS: METOPROLOL SUCCINATE 25 MG TAB.SR.24H PO SCH (09:47)
[2020-02-04] MEDS: LINEZOLID 600 MG TABLET PO SCH ×2 (09:47→21:22)
[2020-02-04] MEDS: BUPRENORPHINE HCL 2 MG SUBLINGUAL TABLET SL SCH (09:47)
[2020-02-04] MEDS: MIDODRINE HCL 5 MG TABLET PO SCH ×3 (09:48→17:13)
[2020-02-04] MEDS: FLUTICASONE/UMECLIDIN/VILANTER 100-62.5-25 MCG/DOSE IH SCH (09:49)
[2020-02-04] MEDS: COLLAGENASE CLOSTRIDIUM HIST. OINT 30 GM TOP SCH (09:50)
--- NOTE | 2020-02-04 11:33 | PDOC PROGRESS REPORT ---
Subjective Progress Note for:: 02/04/20 Subjective:: Patient is resting in bed. Her only complaint is pain in her leg. The right leg is most affected. On the dextrose infusion her Accu-Cheks have been stable. She reports a fair appetite as well. Reason For Visit: AMS Physical Exam Vital Signs: Temp Pulse Resp BP Pulse Ox 98.6 F 95 16 100/58 L 92 02/04/20 07:53 02/04/20 07:55 02/04/20 07:55 02/04/20 07:53 02/04/20 07:55 Intake & Output 02/03/20 02/04/20 02/05/20 06:59 06:59 06:59 Intake Total 2386 1905 Output Total 1900 600 Balance 486 1305 Weight 84.3 kg 84.5 kg General appearance: PRESENT: cooperative, mild distress, well-developed Head exam: PRESENT: atraumatic, normocephalic Respiratory exam: PRESENT: prolonged expiratory phas, rales - Fine rales at bases, rhonchi - Rhonchi bilaterally with exhalation, symmetrical, unlabored. ABSENT: tachypnea, wheezes Cardiovascular exam: PRESENT: RRR, +S1, +S2. ABSENT: bradycardia, diastolic murmur, irregular rhythm, systolic murmur, tachycardia GI/Abdominal exam: PRESENT: normal bowel sounds, soft. ABSENT: distended, guarding, tenderness Rectal exam: PRESENT: deferred Extremities exam: PRESENT: pedal edema - Toes on right foot swollen Neurological exam: PRESENT: alert, awake, oriented to person, oriented to place, oriented to situation. ABSENT: altered Psychiatric exam: PRESENT: appropriate affect. ABSENT: agitated, anxious Focused psych exam: ABSENT: delusional, paranoid, restlessness Skin exam: PRESENT: other - Dressing on right foot. Did not remove the dressing today. Toes slightly swollen. Results Laboratory Results: 02/04/20 07:33 02/04/20 07:33 02/04/20 02/04/20 07:33 07:33 WBC 4.8 RBC 3.42 L Hgb 10.7 L Hct 32.3 L MCV 94 MCH 31.4 MCHC 33.3 RDW 20.1 H Plt Count 105 L Sodium 136.3 L Potassium 3.9 Chloride 101 Carbon Dioxide 28 Anion Gap 7 BUN 13 Creatinine 0.53 Est GFR ( Amer) > 60 Glucose 94 Calcium 8.7 01/30/20 01/30/20 01/30/20 11:11 11:11 14:09 Creatine Kinase 34 CK-MB (CK-2) 1.85 Troponin I < 0.012 < 0.012 NT-Pro-B Natriuret Pep 2049 H Impressions: Head CT 01/30/20 11:40 IMPRESSION: MILD CHRONIC CHANGES OF ATROPHY AND MICROVASCULAR ISCHEMIA. DIFFUSE SINUS DISEASE. NO ACUTE PROCESS. EVIDENCE OF ACUTE STROKE: NO. Abdomen Ultrasound 02/01/20 00:00 IMPRESSION: Minimal ascites. Otherwise negative. Chest X-Ray 02/02/20 00:00 IMPRESSION: Mild pulmonary edema pattern, without pleural effusions or focal consolidation. Assessment and Plan - Diagnosis (1) Altered mental status Qualifiers: Altered mental status type: disorientation Qualified Code(s): R41.0 - Disorientation, unspecified Is this a current diagnosis for this admission?: Yes (2) CHF (congestive heart failure) Qualifiers: Heart failure type: diastolic Heart failure chronicity: acute on chronic Qualified Code(s): I50.33 - Acute on chronic diastolic (congestive) heart failure Is this a current diagnosis for this admission?: Yes (3) Hypoglycemia Is this a current diagnosis for this admission?: Yes (4) Lung cancer Qualifiers: Laterality: left Lung location: overlapping sites Qualified Code(s): C34.82 - Malignant neoplasm of overlapping sites of left bronchus and lung Is this a current diagnosis for this admission?: Yes (5) Right foot ulcer Qualifiers: Non-pressure ulcer stage: with fat layer exposed Qualified Code(s): L97.512 - Non-pressure chronic 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 layer exposed Is this a current diagnosis for this admission?: Yes (6) Alcohol dependency Qualifiers: Complication of substance-induced condition: with unspecified complication Is this a current diagnosis for this admission?: Yes (7) Cigarette nicotine dependence Is this a current diagnosis for this admission?: Yes (8) Obesity Qualifiers: Body mass index: BMI 31.0-31.9 Is this a current diagnosis for this admission?: Yes (9) Opiate dependence Qualifiers: Substance use status: uncomplicated Qualified Code(s): F11.20 - Opioid dependence, uncomplicated Is this a current diagnosis for this admission?: Yes (10) Bilateral lower leg cellulitis Is this a current diagnosis for this admission?: Yes (11) COPD (chronic obstructive pulmonary disease) Qualifiers: COPD type: unspecified COPD Qualified Code(s): J44.9 - Chronic obstructive pulmonary disease, unspecified Is this a current diagnosis for this admission?: Yes (12) Chronic respiratory failure with hypercapnia Is this a current diagnosis for this admission?: Yes (13) Fluid overload Qualifiers: Hypervolemia type: unspecified Qualified Code(s): E87.70 - Fluid overload, unspecified Is this a current diagnosis for this admission?: Yes (14) Thrombocytopenia Is this a current diagnosis for this admission?: Yes - Plan Summary Summary: 02/04/2020 Altered mental status appears to have resolved. Likely multifactorial including hypoglycemia and alcohol dependence. Appears to be back at baseline. Acute on chronic diastolic heart failure with fluid overload-patient is euvolemic at this point. Continue current medication regimen. Right foot ulcer-continue wound care Bilateral lower extremity cellulitis-Levaquin and Zyvox through today. Physical therapy has been ordered to assess functional status. Tobacco abuse-continue nicotine patch and encourage cessation Stage III lung [id number] with oncology post discharge Hypoglycemia-unsure of the exact etiology. Continue dextrose infusion at this time. Likely a combination of poor diet, alcohol abuse and other comorbidities including lung cancer COPD-continue current regimen Opiate dependence-wean opiates to minimal effective dose Thrombocytopenia-platelet count is less than 150. No evidence of bleeding. Likely related to alcohol use. Continue DVT prophylaxis at this time and monitor platelet count. - Time Time Spent with patient: 25-34 minutes Medications reviewed and adjusted accordingly: Yes Anticipated Discharge Disposition: Unsure Anticipated Discharge Timeframe: Unknown
[2020-02-04] MEDS: HYDROCODONE/ACETAMINOPHEN 5-325 MG TABLET PO PRN ×2 (13:20→21:25)
[2020-02-04 14:19] LABS: INSULIN 1.4 uIU/mL (2.6-24.9)
[2020-02-04] MEDS: ACETAMINOPHEN 325 MG TABLET PO PRN (23:06)
[2020-02-05] MEDS: IPRATROPIUM/ALBUTEROL 0.5-2.5 MG/3 ML AMPUL NEB SCH ×4 (00:12→23:51)
[2020-02-05] MEDS: NYSTATIN 500000 UNIT/5 ML UDCUP PO SCH ×3 (05:01→18:36)
[2020-02-05] MEDS: DEXTROSE 5%-NORMAL SALINE 1,000 ML IV PRN (05:10)
[2020-02-05] MEDS: ACETAMINOPHEN 325 MG TABLET PO PRN (05:59)
[2020-02-05 07:24] LABS: ABSOLUTE LYMPHOCYTES (AUTO) 0.9 10^3/uL (0.5-4.7); ABSOLUTE MONOCYTES (AUTO) 0.5 10^3/uL (0.1-1.4); ABSOLUTE NEUT (AUTO) 3.6 10^3/uL (1.7-8.2); BASOPHILS % (AUTO) 0.4 % (0-2); EOSINOPHILS % (AUTO) 0.8 % (0-6); HEMATOCRIT 31.2 % (36.0-47.0); HEMOGLOBIN 10.5 g/dL (12.0-15.5); LYMPHOCYTES % (AUTO) 18.7 % (13-45); MEAN CORPUSCULAR HEMOGLOBIN 31.6 pg (27.0-33.4); MEAN CORPUSCULAR HGB CONC 33.5 g/dL (32.0-36.0); MEAN CORPUSCULAR VOLUME 94 fl (80-97); MONOCYTES % (AUTO) 9.4 % (3-13); PLATELET COUNT 100 10^3/uL (150-450); RED BLOOD COUNT 3.31 10^6/uL (3.72-5.28); SEGMENTED NEUTROPHILS % (AUTO) 70.7 % (42-78); TOTAL CELLS COUNTED % (AUTO) 100 %; WHITE BLOOD COUNT 5.1 10^3/uL (4.0-10.5)
[2020-02-05] MEDS: HYDROCODONE/ACETAMINOPHEN 5-325 MG TABLET PO PRN ×3 (08:21→22:36)
[2020-02-05] MEDS: METOPROLOL SUCCINATE 25 MG TAB.SR.24H PO SCH (10:34)
[2020-02-05] MEDS: DOCUSATE SODIUM 100 MG CAPSULE PO SCH (10:34)
[2020-02-05] MEDS: BUPRENORPHINE HCL 2 MG SUBLINGUAL TABLET SL SCH (10:35)
[2020-02-05] MEDS: FUROSEMIDE 20 MG TABLET PO SCH (10:35)
[2020-02-05] MEDS: MAGNESIUM OXIDE 400 MG TABLET PO SCH ×2 (10:35→18:35)
[2020-02-05] MEDS: COLLAGENASE CLOSTRIDIUM HIST. OINT 30 GM TOP SCH (10:36)
[2020-02-05] MEDS: FLUTICASONE/UMECLIDIN/VILANTER 100-62.5-25 MCG/DOSE IH SCH (10:36)
[2020-02-05] MEDS: MIDODRINE HCL 5 MG TABLET PO SCH ×3 (11:15→18:36)
--- NOTE | 2020-02-05 12:36 | PDOC PROGRESS REPORT ---
Subjective Progress Note for:: 02/05/20 Subjective:: Patient has worked with physical therapy and is now resting in the chair. She is still having some diarrhea. Appetite is improved. Reason For Visit: AMS Physical Exam Vital Signs: Temp Pulse Resp BP Pulse Ox 97.6 F 88 20 104/64 98 02/05/20 08:20 02/05/20 08:20 02/05/20 08:20 02/05/20 08:20 02/05/20 08:20 Intake & Output 02/04/20 02/05/20 02/06/20 06:59 06:59 06:59 Intake Total 1905 1911 Output Total 600 1670 Balance 1305 241 Weight 84.5 kg 84.3 kg General appearance: PRESENT: no acute distress, cooperative, well-developed Head exam: PRESENT: atraumatic, normocephalic Ear exam: PRESENT: normal external ear exam. ABSENT: bleeding, drainage Mouth exam: PRESENT: moist, tongue midline Respiratory exam: PRESENT: prolonged expiratory phas, rhonchi - Right side, symmetrical, unlabored. ABSENT: rales, tachypnea, wheezes Cardiovascular exam: PRESENT: RRR, +S1, +S2. ABSENT: bradycardia, diastolic murmur, irregular rhythm, systolic murmur, tachycardia GI/Abdominal exam: PRESENT: normal bowel sounds, soft. ABSENT: distended, guarding, tenderness Rectal exam: PRESENT: deferred Gentrourinary exam: ABSENT: indwelling catheter Extremities exam: PRESENT: pedal edema - Slight edema right foot. Wound dressing in place. Neurological exam: PRESENT: alert, awake, oriented to person, oriented to place, oriented to time, oriented to situation, CN II-XII grossly intact. ABSENT: altered Psychiatric exam: PRESENT: appropriate affect. ABSENT: agitated, anxious Focused psych exam: ABSENT: delusional, paranoid, restlessness Results Laboratory Results: 02/05/20 06:56 02/04/20 07:33 02/02/20 02/05/20 18:10 06:56 WBC 5.1 RBC 3.31 L Hgb 10.5 L Hct 31.2 L MCV 94 MCH 31.6 MCHC 33.5 RDW 20.0 H Plt Count 100 L Seg Neutrophils % 70.7 C-Peptide 0.9 L 01/30/20 16:14 Blood Blood Culture - Final NO GROWTH IN 5 DAYS 01/30/20 15:34 Blood Blood Culture - Final NO GROWTH IN 5 DAYS 01/30/20 01/30/20 01/30/20 11:11 11:11 14:09 Creatine Kinase 34 CK-MB (CK-2) 1.85 Troponin I < 0.012 < 0.012 NT-Pro-B Natriuret Pep 2050 H Impressions: Head CT 01/30/20 11:40 IMPRESSION: MILD CHRONIC CHANGES OF ATROPHY AND MICROVASCULAR ISCHEMIA. DIFFUSE SINUS DISEASE. NO ACUTE PROCESS. EVIDENCE OF ACUTE STROKE: NO. Abdomen Ultrasound 02/01/20 00:00 IMPRESSION: Minimal ascites. Otherwise negative. Chest X-Ray 02/02/20 00:00 IMPRESSION: Mild pulmonary edema pattern, without pleural effusions or focal consolidation. Assessment and Plan - Diagnosis (1) Altered mental status Qualifiers: Altered mental status type: disorientation Qualified Code(s): R41.0 - Disorientation, unspecified Is this a current diagnosis for this admission?: Yes (2) CHF (congestive heart failure) Qualifiers: Heart failure type: diastolic Heart failure chronicity: acute on chronic Qualified Code(s): I50.33 - Acute on chronic diastolic (congestive) heart failure Is this a current diagnosis for this admission?: Yes (3) Hypoglycemia Is this a current diagnosis for this admission?: Yes (4) Lung cancer Qualifiers: Laterality: left Lung location: overlapping sites Qualified Code(s): C34.82 - Malignant neoplasm of overlapping sites of left bronchus and lung Is this a current diagnosis for this admission?: Yes (5) Right foot ulcer Qualifiers: Non-pressure ulcer stage: with fat layer exposed Qualified Code(s): L97.512 - Non-pressure chronic 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 layer exposed Is this a current diagnosis for this admission?: Yes (6) Alcohol dependency Qualifiers: Complication of substance-induced condition: with unspecified complication Is this a current diagnosis for this admission?: Yes (7) Cigarette nicotine dependence Is this a current diagnosis for this admission?: Yes (8) Obesity Qualifiers: Body mass index: BMI 31.0-31.9 Is this a current diagnosis for this admission?: Yes (9) Opiate dependence Qualifiers: Substance use status: uncomplicated Qualified Code(s): F11.20 - Opioid dependence, uncomplicated Is this a current diagnosis for this admission?: Yes (10) Bilateral lower leg cellulitis Is this a current diagnosis for this admission?: Yes (11) COPD (chronic obstructive pulmonary disease) Qualifiers: COPD type: unspecified COPD Qualified Code(s): J44.9 - Chronic obstructive pulmonary disease, unspecified Is this a current diagnosis for this admission?: Yes (12) Chronic respiratory failure with hypercapnia Is this a current diagnosis for this admission?: Yes (13) Fluid overload Qualifiers: Hypervolemia type: unspecified Qualified Code(s): E87.70 - Fluid overload, unspecified Is this a current diagnosis for this admission?: Yes (14) Thrombocytopenia Is this a current diagnosis for this admission?: Yes - Plan Summary Summary: 02/04/2020 Altered mental status appears to have resolved. Likely multifactorial including hypoglycemia and alcohol dependence. Appears to be back at baseline. Acute on chronic diastolic heart failure with fluid overload-patient is euvolemic at this point. Continue current medication regimen. Right foot ulcer-continue wound care Bilateral lower extremity cellulitis-Levaquin and Zyvox through today. Physical therapy has been ordered to assess functional status. Tobacco abuse-continue nicotine patch and encourage cessation Stage III lung [id number] with oncology post discharge Hypoglycemia-unsure of the exact etiology. Continue dextrose infusion at this time. Likely a combination of poor diet, alcohol abuse and other comorbidities including lung cancer COPD-continue current regimen Opiate dependence-wean opiates to minimal effective dose Thrombocytopenia-platelet count is less than 150. No evidence of bleeding. Likely related to alcohol use. Continue DVT prophylaxis at this time and monitor platelet count. 02/05/2020 No evidence of altered mental status today Patient remains euvolemic We will need to set up an appointment at the wound care center for ongoing wound care of the right foot Antibiotic therapy is completed Continue nicotine patch and encourage cessation Hypoglycemia-we will stop the stress infusion. The patient reports that her appetite is better. If her glucose remained stable off of the infusion consider discharged home in the morning. - Time Time Spent with patient: 15-24 minutes Smoking Cessation Education: 3 to 10 minutes Medications reviewed and adjusted accordingly: Yes Anticipated Discharge Disposition: Home, Self Care Anticipated Discharge Timeframe: within 48 hours
[2020-02-05] MEDS: ENOXAPARIN SODIUM INJ 40 MG/0.4 ML DISP.SYRIN SUBCUT SCH (13:10)
[2020-02-05] MEDS: LOPERAMIDE HCL 2 MG CAPSULE PO PRN (20:17)
[2020-02-06] MEDS: ACETAMINOPHEN 325 MG TABLET PO PRN ×2 (01:37→22:00)
[2020-02-06] MEDS: NYSTATIN 500000 UNIT/5 ML UDCUP PO SCH ×3 (01:38→12:51)
[2020-02-06 05:00] LABS: ABSOLUTE EOSINOPHILS # (AUTO) 0.1 10^3/uL (0.0-0.6); ABSOLUTE LYMPHOCYTES (AUTO) 0.9 10^3/uL (0.5-4.7); ABSOLUTE MONOCYTES (AUTO) 0.5 10^3/uL (0.1-1.4); BASOPHILS % (AUTO) 0.7 % (0-2); EOSINOPHILS % (AUTO) 0.9 % (0-6); HEMATOCRIT 32.6 % (36.0-47.0); HEMOGLOBIN 10.9 g/dL (12.0-15.5); LYMPHOCYTES % (AUTO) 16.7 % (13-45); MEAN CORPUSCULAR HEMOGLOBIN 31.5 pg (27.0-33.4); MEAN CORPUSCULAR HGB CONC 33.6 g/dL (32.0-36.0); MEAN CORPUSCULAR VOLUME 94 fl (80-97); MONOCYTES % (AUTO) 8.5 % (3-13); PLATELET COUNT 106 10^3/uL (150-450); RED BLOOD COUNT 3.47 10^6/uL (3.72-5.28); RED CELL DISTRIBUTION WIDTH 19.7 % (11.5-14.0); SEGMENTED NEUTROPHILS % (AUTO) 73.2 % (42-78); TOTAL CELLS COUNTED % (AUTO) 100 %; WHITE BLOOD COUNT 5.5 10^3/uL (4.0-10.5)
[2020-02-06 05:10] LABS: ALBUMIN 2.4 g/dL (3.5-5.0); ALKALINE PHOSPHATASE 138 U/L (38-126); ANION GAP 7 (5-19); ASPARTATE AMINO TRANSFERASE 32 U/L (14-36); BILIRUBIN,DIRECT 0.2 mg/dL (0.0-0.4); BILIRUBIN,TOTAL 0.7 mg/dL (0.2-1.3); BLOOD UREA NITROGEN 11 mg/dL (7-20); CALCIUM 8.4 mg/dL (8.4-10.2); CARBON DIOXIDE 30 mmol/L (22-30); CHLORIDE 97 mmol/L (98-107); GLUCOSE 75 mg/dL (75-110); POTASSIUM 3.5 mmol/L (3.6-5.0)
[2020-02-06] MEDS ORDERED: POTASSIUM CHLORIDE 10 MEQ TABLET.ER PO ONE ×2 (07:30→10:00)
[2020-02-06] MEDS: IPRATROPIUM/ALBUTEROL 0.5-2.5 MG/3 ML AMPUL NEB SCH ×2 (07:59→16:29)
[2020-02-06] MEDS: DEXTROSE 50%-WATER SYRINGE 25 GM/50 ML DOSE IV PRN ×2 (09:32→10:28)
[2020-02-06] MEDS: BUPRENORPHINE HCL 2 MG SUBLINGUAL TABLET SL SCH (09:38)
[2020-02-06] MEDS: MAGNESIUM OXIDE 400 MG TABLET PO SCH ×2 (09:38→17:44)
[2020-02-06] MEDS: MULTIVITAMIN TABLET PO SCH (09:40)
[2020-02-06] MEDS: ASCORBIC ACID 500 MG TABLET PO SCH (09:40)
[2020-02-06] MEDS: METOPROLOL SUCCINATE 25 MG TAB.SR.24H PO SCH (09:41)
[2020-02-06] MEDS: FUROSEMIDE 20 MG TABLET PO SCH (09:42)
[2020-02-06] MEDS: ZINC SULFATE 220 MG CAPSULE PO SCH (09:42)
[2020-02-06] MEDS: MIDODRINE HCL 5 MG TABLET PO SCH ×3 (09:43→17:44)
[2020-02-06] MEDS: DOCUSATE SODIUM 100 MG CAPSULE PO SCH (09:44)
[2020-02-06] MEDS: COLLAGENASE CLOSTRIDIUM HIST. OINT 30 GM TOP SCH (09:45)
[2020-02-06] MEDS: FLUTICASONE/UMECLIDIN/VILANTER 100-62.5-25 MCG/DOSE IH SCH (09:46)
[2020-02-06] MEDS: ENOXAPARIN SODIUM INJ 40 MG/0.4 ML DISP.SYRIN SUBCUT SCH (09:54)
[2020-02-06] MEDS: HYDROCODONE/ACETAMINOPHEN 5-325 MG TABLET PO PRN ×2 (11:40→17:53)
[2020-02-06] MEDS: DEXTROSE 5%-NORMAL SALINE 1,000 ML IV PRN ×2 (11:40→22:01)
--- NOTE | 2020-02-06 16:38 | PDOC PROGRESS REPORT ---
Subjective Progress Note for:: 02/06/20 Subjective:: Frustrated with recurrent hypoglycemia. Also reports coughing up mucus. Has not tolerated guaifenesin or Tessalon Perles in the past. Reason For Visit: AMS, symptomatic hypoglycemia, infected foot wound Physical Exam Vital Signs: Temp Pulse Resp BP Pulse Ox 97.4 F 93 20 92/56 L 96 02/06/20 15:21 02/06/20 14:00 02/06/20 15:21 02/06/20 15:21 02/06/20 15:21 Intake & Output 02/05/20 02/06/20 02/07/20 06:59 06:59 06:59 Intake Total 1911 1760 Output Total 1670 800 Balance 241 960 Weight 84.3 kg 84.3 kg General appearance: PRESENT: cooperative, mild distress, well-developed Head exam: PRESENT: atraumatic, normocephalic Ear exam: PRESENT: normal external ear exam. ABSENT: bleeding, drainage Respiratory exam: PRESENT: rhonchi - Faint rhonchi right base, symmetrical, unlabored. ABSENT: prolonged expiratory phas, rales, tachypnea, wheezes Cardiovascular exam: PRESENT: RRR, +S1, +S2. ABSENT: bradycardia, diastolic murmur, irregular rhythm, systolic murmur, tachycardia GI/Abdominal exam: PRESENT: normal bowel sounds, soft. ABSENT: distended, guarding, tenderness Rectal exam: PRESENT: deferred Gentrourinary exam: ABSENT: indwelling catheter Extremities exam: PRESENT: pedal edema - Right foot swelling Musculoskeletal exam: PRESENT: ambulatory, normal inspection - Except right foot., other - Dressing on right foot Neurological exam: PRESENT: alert, awake, oriented to person, oriented to place, oriented to time, oriented to situation, CN II-XII grossly intact. ABSENT: altered Psychiatric exam: PRESENT: appropriate affect. ABSENT: agitated, anxious Focused psych exam: ABSENT: delusional, paranoid, restlessness Skin exam: PRESENT: dry, normal color, warm, other - Dressing on right foot covering wound. ABSENT: rash Results Laboratory Results: 02/06/20 04:15 02/06/20 04:15 02/06/20 02/06/20 04:15 04:15 WBC 5.5 RBC 3.47 L Hgb 10.9 L Hct 32.6 L MCV 94 MCH 31.5 MCHC 33.6 RDW 19.7 H Plt Count 106 L Seg Neutrophils % 73.2 Sodium 134.3 L Potassium 3.5 L Chloride 97 L Carbon Dioxide 30 Anion Gap 7 BUN 11 Creatinine 0.56 Est GFR ( Amer) > 60 Glucose 75 Calcium 8.4 Total Bilirubin 0.7 AST 32 Alkaline Phosphatase 138 H Total Protein 6.0 L Albumin 2.4 L 01/30/20 01/30/20 01/30/20 11:11 11:11 14:09 Creatine Kinase 34 CK-MB (CK-2) 1.85 Troponin I < 0.012 < 0.012 NT-Pro-B Natriuret Pep 2050 H Impressions: Head CT 01/30/20 11:40 IMPRESSION: MILD CHRONIC CHANGES OF ATROPHY AND MICROVASCULAR ISCHEMIA. DIFFUSE SINUS DISEASE. NO ACUTE PROCESS. EVIDENCE OF ACUTE STROKE: NO. Abdomen Ultrasound 02/01/20 00:00 IMPRESSION: Minimal ascites. Otherwise negative. Chest X-Ray 02/02/20 00:00 IMPRESSION: Mild pulmonary edema pattern, without pleural effusions or focal consolidation. Assessment and Plan - Diagnosis (1) Altered mental status Qualifiers: Altered mental status type: disorientation Qualified Code(s): R41.0 - Disorientation, unspecified Is this a current diagnosis for this admission?: Yes (2) CHF (congestive heart failure) Qualifiers: Heart failure type: diastolic Heart failure chronicity: acute on chronic Qualified Code(s): I50.33 - Acute on chronic diastolic (congestive) heart failure Is this a current diagnosis for this admission?: Yes (3) Hypoglycemia Is this a current diagnosis for this admission?: Yes (4) Lung cancer Qualifiers: Laterality: left Lung location: overlapping sites Qualified Code(s): C34.82 - Malignant neoplasm of overlapping sites of left bronchus and lung Is this a current diagnosis for this admission?: Yes (5) Right foot ulcer Qualifiers: Non-pressure ulcer stage: with fat layer exposed Qualified Code(s): L97.512 - Non-pressure chronic 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 layer exposed Is this a current diagnosis for this admission?: Yes (6) Alcohol dependency Qualifiers: Complication of substance-induced condition: with unspecified complication Is this a current diagnosis for this admission?: Yes (7) Cigarette nicotine dependence Is this a current diagnosis for this admission?: Yes (8) Obesity Qualifiers: Body mass index: BMI 31.0-31.9 Is this a current diagnosis for this admission?: Yes (9) Opiate dependence Qualifiers: Substance use status: uncomplicated Qualified Code(s): F11.20 - Opioid dependence, uncomplicated Is this a current diagnosis for this admission?: Yes (10) Bilateral lower leg cellulitis Is this a current diagnosis for this admission?: Yes (11) COPD (chronic obstructive pulmonary disease) Qualifiers: COPD type: unspecified COPD Qualified Code(s): J44.9 - Chronic obstructive pulmonary disease, unspecified Is this a current diagnosis for this admission?: Yes (12) Chronic respiratory failure with hypercapnia Is this a current diagnosis for this admission?: Yes (13) Fluid overload Qualifiers: Hypervolemia type: unspecified Qualified Code(s): E87.70 - Fluid overload, unspecified Is this a current diagnosis for this admission?: Yes (14) Thrombocytopenia Is this a current diagnosis for this admission?: Yes - Plan Summary Summary: 02/04/2020 Altered mental status appears to have resolved. Likely multifactorial including hypoglycemia and alcohol dependence. Appears to be back at baseline. Acute on chronic diastolic heart failure with fluid overload-patient is euvolemic at this point. Continue current medication regimen. Right foot ulcer-continue wound care Bilateral lower extremity cellulitis-Levaquin and Zyvox through today. Physical therapy has been ordered to assess functional status. Tobacco abuse-continue nicotine patch and encourage cessation Stage III lung [id number] with oncology post discharge Hypoglycemia-unsure of the exact etiology. Continue dextrose infusion at this time. Likely a combination of poor diet, alcohol abuse and other comorbidities including lung cancer COPD-continue current regimen Opiate dependence-wean opiates to minimal effective dose Thrombocytopenia-platelet count is less than 150. No evidence of bleeding. Likely related to alcohol use. Continue DVT prophylaxis at this time and monitor platelet count. 02/05/2020 No evidence of altered mental status today Patient remains euvolemic We will need to set up an appointment at the wound care center for ongoing wound care of the right foot Antibiotic therapy is completed Continue nicotine patch and encourage cessation Hypoglycemia-we will stop the stress infusion. The patient reports that her appetite is better. If her glucose remained stable off of the infusion consider discharged home in the morning. 02/06/2020 Off of the dextrose infusion the patient's glucoses dropped significantly. The dextrose infusion was restarted at 100 mL an hour. Stage III lung cancer-research indicates that hypoglycemia could be a paraneoplastic syndrome but I would have expected her to have this hypoglycemia earlier in the course of her cancer. Continue current dressing changes to the right foot. COPD is stable. Platelet count has not dipped below 100 and is holding steady. Continue nicotine patch Continue current doses of narcotic analgesia - Time Time Spent with patient: 15-24 minutes Medications reviewed and adjusted accordingly: Yes Anticipated Discharge Disposition: Home with Home Health Anticipated Discharge Timeframe: within 72 hours
[2020-02-07] MEDS: IPRATROPIUM/ALBUTEROL 0.5-2.5 MG/3 ML AMPUL NEB SCH ×2 (00:56→07:57)
[2020-02-07] MEDS: HYDROCODONE/ACETAMINOPHEN 5-325 MG TABLET PO PRN ×3 (02:40→15:58)
[2020-02-07] MEDS: GUAIFENESIN/CODEINE PHOS 100-10 MG/ 5 ML UDC PO PRN ×4 (02:44→21:29)
[2020-02-07] MEDS: DEXTROSE 50%-WATER SYRINGE 12.5 GM/25 ML DOSE IV PRN ×2 (02:45→06:15)
--- NOTE | 2020-02-07 06:03 | RADIOLOGY REPORT (SQ) ---
EXAM DESCRIPTION: X-ray single view chest. CLINICAL HISTORY: 59 years Female, changes in lung sounds COMPARISON: 02/02/2020 and 02/01/2020 TECHNIQUE: Single portable x-ray view of the chest performed on 02/07/2020 at 5:08 AM FINDINGS: The lungs are well expanded and are grossly clear. There is no evidence of a pneumothorax. The cardiac silhouette is stable and is enlarged. The mediastinal contours are normal. No acute osseous abnormality is identified. No focal soft tissue abnormalities are seen. Lines and tubes: The right IJ central venous catheter is grossly stable and terminates in the region of the superior vena cava. IMPRESSION: 1. Stable enlargement of the cardiac silhouette. 2. No definite acute intrathoracic disease. 3. Stable right IJ central venous catheter.
[2020-02-07] MEDS: METOPROLOL SUCCINATE 25 MG TAB.SR.24H PO SCH (09:27)
[2020-02-07] MEDS: FUROSEMIDE 20 MG TABLET PO SCH (09:28)
[2020-02-07] MEDS: ASCORBIC ACID 500 MG TABLET PO SCH (09:28)
[2020-02-07] MEDS: BUPRENORPHINE HCL 2 MG SUBLINGUAL TABLET SL SCH (09:29)
[2020-02-07] MEDS: MULTIVITAMIN TABLET PO SCH (09:30)
[2020-02-07] MEDS: LOPERAMIDE HCL 2 MG CAPSULE PO PRN (09:30)
[2020-02-07] MEDS: POTASSIUM CHLORIDE 10 MEQ TABLET.ER PO SCH (09:30)
[2020-02-07] MEDS: MAGNESIUM OXIDE 400 MG TABLET PO SCH ×2 (09:31→18:25)
[2020-02-07] MEDS: ZINC SULFATE 220 MG CAPSULE PO SCH (09:31)
[2020-02-07] MEDS: MIDODRINE HCL 5 MG TABLET PO SCH ×3 (09:31→18:24)
[2020-02-07] MEDS: COLLAGENASE CLOSTRIDIUM HIST. OINT 30 GM TOP SCH (09:32)
[2020-02-07] MEDS: ENOXAPARIN SODIUM INJ 40 MG/0.4 ML DISP.SYRIN SUBCUT SCH (09:32)
[2020-02-07] MEDS: FLUTICASONE/UMECLIDIN/VILANTER 100-62.5-25 MCG/DOSE IH SCH (09:33)
[2020-02-07] MEDS: DOCUSATE SODIUM 100 MG CAPSULE PO SCH (09:34)
[2020-02-07] MEDS: DEXTROSE 5%-NORMAL SALINE 1,000 ML IV PRN ×2 (12:36→21:32)
[2020-02-07] MEDS: HYDROXYZINE PAMOATE 25 MG CAPSULE PO PRN ×2 (13:46→21:29)
[2020-02-07] MEDS: ACETAMINOPHEN 325 MG TABLET PO PRN (13:50)
--- NOTE | 2020-02-07 18:00 | PDOC PROGRESS REPORT ---
Subjective Progress Note for:: 02/07/20 Subjective:: The patient is resting comfortably. She has had no discomfort. Breathing is stable. Despite the dextrose infusion her glucose was 59 this morning. Reason For Visit: AMS Physical Exam Vital Signs: Temp Pulse Resp BP Pulse Ox 98.1 F 93 18 116/64 96 02/07/20 15:43 02/07/20 15:43 02/07/20 15:43 02/07/20 15:43 02/07/20 15:43 Intake & Output 02/06/20 02/07/20 02/08/20 06:59 06:59 06:59 Intake Total 1760 1240 1000 Output Total 800 2400 Balance 960 -1160 1000 Weight 84.3 kg 84.3 kg General appearance: PRESENT: no acute distress, cooperative, well-developed Head exam: PRESENT: atraumatic, normocephalic Ear exam: PRESENT: normal external ear exam. ABSENT: bleeding, drainage Mouth exam: PRESENT: moist, tongue midline Respiratory exam: PRESENT: clear to auscultation javier, symmetrical, unlabored. ABSENT: rales, rhonchi, tachypnea, wheezes Cardiovascular exam: PRESENT: RRR, +S1, +S2. ABSENT: bradycardia, irregular rhythm, tachycardia GI/Abdominal exam: PRESENT: normal bowel sounds, soft. ABSENT: tenderness Rectal exam: PRESENT: deferred Gentrourinary exam: ABSENT: indwelling catheter Extremities exam: PRESENT: other - Wound dressing on right foot. Slight swelling. Musculoskeletal exam: PRESENT: ambulatory Neurological exam: PRESENT: alert, awake, oriented to person, oriented to place, oriented to time, oriented to situation, CN II-XII grossly intact. ABSENT: altered Psychiatric exam: PRESENT: appropriate affect. ABSENT: agitated, anxious Focused psych exam: ABSENT: delusional, paranoid, restlessness Results Laboratory Results: 02/06/20 04:15 02/06/20 04:15 01/30/20 01/30/20 01/30/20 11:11 11:11 14:09 Creatine Kinase 34 CK-MB (CK-2) 1.85 Troponin I < 0.012 < 0.012 NT-Pro-B Natriuret Pep 2050 H Impressions: Head CT 01/30/20 11:40 IMPRESSION: MILD CHRONIC CHANGES OF ATROPHY AND MICROVASCULAR ISCHEMIA. DIFFUSE SINUS DISEASE. NO ACUTE PROCESS. EVIDENCE OF ACUTE STROKE: NO. Abdomen Ultrasound 02/01/20 00:00 IMPRESSION: Minimal ascites. Otherwise negative. Chest X-Ray 02/07/20 00:00 IMPRESSION: 1. Stable enlargement of the cardiac silhouette. 2. No definite acute intrathoracic disease. 3. Stable right IJ central venous catheter. Assessment and Plan - Diagnosis (1) Altered mental status Qualifiers: Altered mental status type: disorientation Qualified Code(s): R41.0 - Disorientation, unspecified Is this a current diagnosis for this admission?: Yes (2) CHF (congestive heart failure) Qualifiers: Heart failure type: diastolic Heart failure chronicity: acute on chronic Qualified Code(s): I50.33 - Acute on chronic diastolic (congestive) heart fail ure Is this a current diagnosis for this admission?: Yes (3) Hypoglycemia Is this a current diagnosis for this admission?: Yes (4) Lung cancer Qualifiers: Laterality: left Lung location: overlapping sites Qualified Code(s): C34.82 - Malignant neoplasm of overlapping sites of left bronchus and lung Is this a current diagnosis for this admission?: Yes (5) Right foot ulcer Qualifiers: Non-pressure ulcer stage: with fat layer exposed Qualified Code(s): L97.512 - Non-pressure chronic 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 layer exposed Is this a current diagnosis for this admission?: Yes (6) Alcohol dependency Qualifiers: Complication of substance-induced condition: with unspecified complication Is this a current diagnosis for this admission?: Yes (7) Cigarette nicotine dependence Is this a current diagnosis for this admission?: Yes (8) Obesity Qualifiers: Body mass index: BMI 31.0-31.9 Is this a current diagnosis for this admission?: Yes (9) Opiate dependence Qualifiers: Substance use status: uncomplicated Qualified Code(s): F11.20 - Opioid dependence, uncomplicated Is this a current diagnosis for this admission?: Yes (10) Bilateral lower leg cellulitis Is this a current diagnosis for this admission?: Yes (11) COPD (chronic obstructive pulmonary disease) Qualifiers: COPD type: unspecified COPD Qualified Code(s): J44.9 - Chronic obstructive pulmonary disease, unspecified Is this a current diagnosis for this admission?: Yes (12) Chronic respiratory failure with hypercapnia Is this a current diagnosis for this admission?: Yes (13) Fluid overload Qualifiers: Hypervolemia type: unspecified Qualified Code(s): E87.70 - Fluid overload, unspecified Is this a current diagnosis for this admission?: Yes (14) Thrombocytopenia Is this a current diagnosis for this admission?: Yes - Plan Summary Summary: 02/04/2020 Altered mental status appears to have resolved. Likely multifactorial including hypoglycemia and alcohol dependence. Appears to be back at baseline. Acute on chronic diastolic heart failure with fluid overload-patient is euvolemic at this point. Continue current medication regimen. Right foot ulcer-continue wound care Bilateral lower extremity cellulitis-Levaquin and Zyvox through today. Physical therapy has been ordered to assess functional status. Tobacco abuse-continue nicotine patch and encourage cessation Stage III lung [id number] with oncology post discharge Hypoglycemia-unsure of the exact etiology. Continue dextrose infusion at this time. Likely a combination of poor diet, alcohol abuse and other comorbidities including lung cancer COPD-continue current regimen Opiate dependence-wean opiates to minimal effective dose Thrombocytopenia-platelet count is less than 150. No evidence of bleeding. Likely related to alcohol use. Continue DVT prophylaxis at this time and monitor platelet count. 02/05/2020 No evidence of altered mental status today Patient remains euvolemic We will need to set up an appointment at the wound care center for ongoing wound care of the right foot Antibiotic therapy is completed Continue nicotine patch and encourage cessation Hypoglycemia-we will stop the stress infusion. The patient reports that her appetite is better. If her glucose remained stable off of the infusion consider discharged home in the morning. 02/06/2020 Off of the dextrose infusion the patient's glucoses dropped significantly. The dextrose infusion was restarted at 100 mL an hour. Stage III lung cancer-research indicates that hypoglycemia could be a paraneoplastic syndrome but I would have expected her to have this hypoglycemia earlier in the course of her cancer. Continue current dressing changes to the right foot. COPD is stable. Platelet count has not dipped below 100 and is holding steady. Continue nicotine patch Continue current doses of narcotic analgesia 02/07/2020 The beta hydroxybutyrate, proinsulin, C-peptide and insulin levels are back. They do not appear to fit 1 particular pattern. The patient's Accu-Chek of 59 earlier this morning was not associated with any symptoms of hypoglycemia. We had a discussion about possible discharge to home. As an outpatient she will need to see an steel chipper. I have proposed a sliding scale system. She w ill perform Accu-Cheks at home and based on the symptoms and actual glucose level she can determine what intervention to take. She seems amenable to this plan. - Time Time Spent with patient: 15-24 minutes Medications reviewed and adjusted accordingly: Yes Anticipated Discharge Disposition: Home with Home Health Anticipated Discharge Timeframe: within 48 hours
[2020-02-07] MEDS: NYSTATIN 500000 UNIT/5 ML UDCUP PO SCH (21:29)
[2020-02-08] MEDS: HYDROCODONE/ACETAMINOPHEN 5-325 MG TABLET PO PRN ×2 (02:12→08:26)
[2020-02-08] MEDS: GUAIFENESIN/CODEINE PHOS 100-10 MG/ 5 ML UDC PO PRN ×3 (02:12→15:23)
[2020-02-08] MEDS: NYSTATIN 500000 UNIT/5 ML UDCUP PO SCH ×2 (09:42→15:07)
[2020-02-08] MEDS: MIDODRINE HCL 5 MG TABLET PO SCH ×2 (09:43→15:10)
[2020-02-08] MEDS: LOPERAMIDE HCL 2 MG CAPSULE PO PRN (09:46)
[2020-02-08] MEDS: MULTIVITAMIN TABLET PO SCH (09:46)
[2020-02-08] MEDS: ASCORBIC ACID 500 MG TABLET PO SCH (09:46)
[2020-02-08] MEDS: BUPRENORPHINE HCL 2 MG SUBLINGUAL TABLET SL SCH (09:47)
[2020-02-08] MEDS: POTASSIUM CHLORIDE 10 MEQ TABLET.ER PO SCH (09:47)
[2020-02-08] MEDS: ZINC SULFATE 220 MG CAPSULE PO SCH (09:47)
[2020-02-08] MEDS: MAGNESIUM OXIDE 400 MG TABLET PO SCH (09:47)
[2020-02-08] MEDS: FUROSEMIDE 20 MG TABLET PO SCH (09:48)
[2020-02-08] MEDS: FLUTICASONE/UMECLIDIN/VILANTER 100-62.5-25 MCG/DOSE IH SCH (09:49)
[2020-02-08] MEDS: ENOXAPARIN SODIUM INJ 40 MG/0.4 ML DISP.SYRIN SUBCUT SCH (09:49)
[2020-02-08] MEDS: METOPROLOL SUCCINATE 25 MG TAB.SR.24H PO SCH (09:50)
[2020-02-08] MEDS: COLLAGENASE CLOSTRIDIUM HIST. OINT 30 GM TOP SCH (09:51)
[2020-02-08] MEDS: DEXTROSE 5%-NORMAL SALINE 1,000 ML IV PRN (09:55)
[2020-02-08] MEDS: DOCUSATE SODIUM 100 MG CAPSULE PO SCH (12:45)
--- NOTE | 2020-02-08 13:21 | PDOC DISCHARGE SUMMARY ---
Impression - Admit/DC Date/PCP Admission Date/Primary Care Provider: 01/30/20 16:57 GALA ROBERTSON MD Discharge Date: 02/08/20 - Discharge Diagnosis (1) Altered mental status Is this a current diagnosis for this admission?: Yes (2) CHF (congestive heart failure) Is this a current diagnosis for this admission?: Yes (3) Hypoglycemia Is this a current diagnosis for this admission?: Yes (4) Lung cancer Is this a current diagnosis for this admission?: Yes (5) Right foot ulcer Is this a current diagnosis for this admission?: Yes (6) Alcohol dependency Is this a current diagnosis for this admission?: Yes (7) Cigarette nicotine dependence Is this a current diagnosis for this admission?: Yes (8) Obesity Is this a current diagnosis for this admission?: Yes (9) Opiate dependence Is this a current diagnosis for this admission?: Yes (10) Bilateral lower leg cellulitis Is this a current diagnosis for this admission?: Yes (11) COPD (chronic obstructive pulmonary disease) Is this a current diagnosis for this admission?: Yes (12) Chronic respiratory failure with hypercapnia Is this a current diagnosis for this admission?: Yes (13) Fluid overload Is this a current diagnosis for this admission?: Yes (14) Thrombocytopenia Is this a current diagnosis for this admission?: Yes - Assessment Summary: 02/04/2020 Altered mental status appears to have resolved. Likely multifactorial including hypoglycemia and alcohol dependence. Appears to be back at baseline. Acute on chronic diastolic heart failure with fluid overload-patient is euvolemic at this point. Continue current medication regimen. Right foot ulcer-continue wound care Bilateral lower extremity cellulitis-Levaquin and Zyvox through today. Physical therapy has been ordered to assess functional status. Tobacco abuse-continue nicotine patch and encourage cessation Stage III lung [id number] with oncology post discharge Hypoglycemia-unsure of the exact etiology. Continue dextrose infusion at this time. Likely a combination of poor diet, alcohol abuse and other comorbidities including lung cancer COPD-continue current regimen Opiate dependence-wean opiates to minimal effective dose Thrombocytopenia-platelet count is less than 150. No evidence of bleeding. Likely related to alcohol use. Continue DVT prophylaxis at this time and monitor platelet count. 02/05/2020 No evidence of altered mental status today Patient remains euvolemic We will need to set up an appointment at the wound care center for ongoing wound care of the right foot Antibiotic therapy is completed Continue nicotine patch and encourage cessation Hypoglycemia-we will stop the stress infusion. The patient reports that her appetite is better. If her glucose remained stable off of the infusion consider discharged home in the morning. 02/06/2020 Off of the dextrose infusion the patient's glucoses dropped significantly. The dextrose infusion was restarted at 100 mL an hour. Stage III lung cancer-research indicates that hypoglycemia could be a paraneoplastic syndrome but I would have expected her to have this hypoglycemia earlier in the course of her cancer. Continue current dressing changes to the right foot. COPD is stable. Platelet count has not dipped below 100 and is holding steady. Continue nicotine patch Continue current doses of narcotic analgesia 02/07/2020 The beta hydroxybutyrate, proinsulin, C-peptide and insulin levels are back. They do not appear to fit 1 particular pattern. The patient's Accu-Chek of 59 earlier this morning was not associated with any symptoms of hypoglycemia. We had a discussion about possible discharge to home. As an outpatient she will need to see an railway yard assistant. I have proposed a sliding scale system. She will perform Accu-Cheks at home and based on the symptoms and actual glucose level she can determine what intervention to take. She seems amenable to this plan. - Additional Information Resuscitation Status: Full Code Discharge Diet: Cardiac Discharge Activity: Activity As Tolerated, Balance Activity w/Rest, Weigh Daily Referrals: GALA ROBETRSON MD [Primary Care Provider] - 02/20/20 2:15 pm Prescriptions: Dextrose [Dex4 Glucose] 15 gm PO ASDIR PRN #50 ml PRN Reason: hypoglycemia Glucagon [Gvoke Hypopen 2-Pack] 1 mg SQ ASDIR PRN #1 auto.injct PRN Reason: Hypoglycemia Midodrine HCl [Proamatine 5 mg Tablet] 5 mg PO TID 14 Days #42 tablet Home Medications: Albuterol Sulfate [Albuterol Sulfate Hfa] 1 puff IH Q6HP PRN 09/04/19 Fluticasone/Umeclidin/Vilanter [Trelegy 100-62.5-25 Mcg Ellipta 14 Dose/Dpi] 1 puff IH DAILY 09/04/19 Hydrocortisone [Hydrocortisone 2.5% Cream 28 gm (Clinic Use)] 1 applic TOP BID 09/04/19 Tussionex 5 ml PO Q12HP PRN 09/04/19 Nystatin [Mycostatin Cream 15 gm] 1 applic TP BID 7 Days #1 tube 11/22/19 Hydroxyzine Pamoate [Vistaril 50 mg Capsule] 50 mg PO DAILY 12/26/19 Furosemide [Lasix 20 mg Tablet] 20 mg PO DAILYP PRN #30 tablet 12/31/19 Magnesium Oxide [Mag-Oxide Magnesium] 200 mg PO BID #60 tablet 12/31/19 Buprenorphine HCl [Subutex 2 mg Sl Tablet] 2 mg SL DAILY tab.subl 02/08/20 Collagenase Clostridium Hist. [Santyl Ointment 30 gm] 1 applic TOP DAILY tube 02/08/20 Dextrose [Dex4 Glucose] 15 gm PO ASDIR PRN #50 ml 02/08/20 Furosemide [Lasix 20 mg Tablet] 20 mg PO DAILY tablet 02/08/20 Glucagon [Gvoke Hypopen 2-Pack] 1 mg SQ ASDIR PRN #1 auto.injct 02/08/20 Loperamide HCl [Imodium 2 mg Capsule] 2 mg PO Q6HP PRN capsule 02/08/20 Midodrine HCl [Proamatine 5 mg Tablet] 5 mg PO TID 14 Days #42 tablet 02/08/20 Potassium Chloride [Klor-Con 10 Meq Tablet ER] 20 meq PO DAILY #60 tablet.er 02/08/20 History of Present Illiness History of Present Illness: DYLAN SWARTZ is a 59 year old female with a past medical history significant for CHF (LVEF 60%; moderate pulmonary hypertension), COPD, lung cancer (stage III; last chemo treatment in July. Followed by Dr. Robertson), home O2 dependent, sleep apnea, obesity, GERD, arthritis, depression, tobacco and alcohol dependency, opiate dependent chronic pain who presented to the emergency department today via EMS for complaint of increased confusion. Per EMS report, the patient slipped from the couch to the floor and was unable to get up. Family reported to EMS that patient has had progressively worsening confusion over the last month. Per ED provider, it was also reported that the patient has been frequently refusing medications and follow-up appointments. Evaluation in the emergency department revealed tachycardia, tachypnea, unremarkable CBC, ABG revealed chronic respiratory acidosis with hypercapnia and hypoxia, elevated proBNP, negative troponins x2, hypoglycemia (glucose 40; now on D5W). Chest x-ray revealed stable cardiomegaly no other acute findings. Head CT demonstrated mild chronic changes of atrophy and microvascular ischemia, diffuse sinus disease, no acute process. Patient is referred to the hospitalist service for further evaluation management of the above-stated complaints and findings. Hospital Course Hospital Course: Complex hospital course. (1) Altered mental status Qualifiers: Altered mental status type: disorientation Qualified Code(s): R41.0 - Disorientation, unspecified Is this a current diagnosis for this admission?: Yes Plan: Resolved; now at baseline Multifactorial related to hypoglycemia, acute on chronic CHF exacerbation resulting in acute on chronic respiratory failure with hypercapnia and hypoxia, and acute infectious process (bilateral lower extremity cellulitis). Likely also compounded by the patient's opiate and alcohol dependence. Serum EtOH is negative. UDS positive for opiates only. Laboratory evaluation is benign No evidence of additional infectious process. BLE cellulitis is improved. Head CT is negative for acute findings. Decrease Subutex to 2 mg twice daily (utilizes 8 mg twice daily at home) Discontinue IV Ativan as this resulted in hypotension, hypoxia, and decreased mentation x36hrs. Supportive care and disease specific management as outlined below. (2) CHF (congestive heart failure) Qualifiers: Heart failure type: diastolic Heart failure chronicity: acute on chronic Qualified Code(s): I50.33 - Acute on chronic diastolic (congestive) heart failure Is this a current diagnosis for this admission?: Yes Plan: proBNP is elevated from baseline. Noted to have bilateral lower extremity edema; being treated for cellulitis. Echocardiogram (December 2019) showed LVEF 60%, moderate LV diastolic dysfunction, and moderate pulmonary hypertension. Unfortunately strict I&Os and weights have not been started. Reinforced need for strict I&O's with nursing. Resume home dose furosemide. We will start Toprol XL 12.5 mg daily Continues to receive IVF (D5 r/t hypoglycemia) Cardiac diet. Daily weights, strict I&O's. (3) Hypoglycemia Is this a current diagnosis for this admission?: Yes Plan: Unclear etiology; patient is not diabetic or any on antidiabetic medications. She is not currently in sepsis. Likely secondary to poor nutrition and continued poor p.o. intake We will continue D5W w/ accu checks every 4 hours. Glucose continues to remain borderline and she has required multiple amps of dextrose this admission. Hopefully will improve now that patient is awake and eating. Evaluating for other potential causes of hypoglycemia: Lactic acid 1 Serum glucose 108 Insulin, C-peptide, beta hydroxybutyrate, and proinsulin levels are pending. Encourage oral intake. Hypoglycemia protocol. (4) Lung cancer Qualifiers: Laterality: left Lung location: overlapping sites Qualified Code(s): C34.82 - Malignant neoplasm of overlapping sites of left bronchus and lung Is this a current diagnosis for this admission?: Yes Plan: Followed with Dr. Robertson. Spoke with Dr. Ware today, patient has stage III lung cancer. Last chemo treatment in July. Outpatient follow up. 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 Villasenor had recommended BKA. Patient adamantly declined. She was recommended to continue wet-to-dry dressing changes with outpatient wound care follow-up. Per ED provider, she was informed that the patient has been refusing/counseling with care appointments to the extent that she has been discharged from the practice. Wound bed is currently dry. Consult to wound care nurse for recommendations; continue Santyl with dry dressing changes per their recommendations. (6) Alcohol dependency Qualifiers: Complication of substance-induced condition: with unspecified complication Is this a current diagnosis for this admission?: Yes Plan: Daily thiamin and folic acid replacement. No evidence of alcohol withdrawal. Avoid benzodiazepines; patient developed hypotention, worsening hypoxia, and obtunded mental status following prn ativan. Improved with Romazicon but took an additional 36-48 hours for patient's mentation to return to baseline. (7) Tobacco abuse Is this a current diagnosis for this admission?: Yes Plan: Smoking cessation encouraged. Nicotine replacement therapy is provided. (8) Opiate dependence Qualifiers: Substance use status: uncomplicated Qualified Code(s): F11.20 - Opioid dependence, uncomplicated Is this a current diagnosis for this admission?: Yes Plan: [place] Controlled Substance database is verified; patient is prescribed buprenorphine 8 mg sublingual tab, #60 each month. Last prescription provided 01/08/2020. Patient presents with altered mentation; significantly improved today. Subutex 2 mg SL twice daily; utilizes 8 mg twice daily at home. Monitor for withdrawal. (9) Obesity Qualifiers: Body mass index: BMI 31.0-31.9 Is this a current diagnosis for this admission?: Yes Plan: BMI 34 Patient is placed on a cardiac diet. Lifestyle modification and dietary compliance will be encouraged. (10) COPD (chronic obstructive pulmonary disease) Qualifiers: COPD type: unspecified COPD Qualified Code(s): J44.9 - Chronic obstructive pulmonary disease, unspecified Is this a current diagnosis for this admission?: Yes Plan: Stable and without exacerbation. Will provide supplemental oxygen and BiPAP as needed to maintain saturations greater than 89%. Start on scheduled and as needed nebulizer treatments. Pulmonary toilet is encouraged with incentive spirometer, flutter valve, and early ambulation. No indications for steroid therapy at this time. (11) Chronic respiratory failure with hypercapnia Is this a current diagnosis for this admission?: Yes Plan: ABGs show chronic respiraty failure with hypercapnia and hypoxia. Continue supplemental oxygen and BiPAP support Remaining management as above. (12) Bilateral lower leg cellulitis Is this a current diagnosis for this admission?: Yes Plan: Reviewed infectious disease and surgical notes from the patient's recent admission. She had multiple organisms grow from foot wound culture [place] this year. Both specialists recommended right BKA at that time; patient declined. Infectious disease recommended patient be treated with Zyvox and Levaquin. Patient completed a course of antibiotic therapy with improvement; discharged home with outpatient follow-up. Unfortunately, patient is reportedly noncompliant with her wound care appointments. Physical Exam Vital Signs: Temp Pulse Resp BP Pulse Ox 97.6 F 88 20 91/57 L 95 02/08/20 10:00 02/08/20 08:00 02/08/20 08:14 02/08/20 08:14 02/08/20 08:14 Intake & Output 02/07/20 02/08/20 02/09/20 06:59 06:59 05:59 Intake Total 1240 2613 1000 Output Total 2400 3700 Balance -1160 -1087 1000 Weight 84.3 kg General appearance: PRESENT: no acute distress, cooperative Respiratory exam: PRESENT: clear to auscultation javier, unlabored. ABSENT: rales, rhonchi, symmetrical, tachypnea, wheezes Cardiovascular exam: PRESENT: RRR, +S1, +S2 GI/Abdominal exam: PRESENT: normal bowel sounds, soft. ABSENT: tenderness Neurological exam: PRESENT: alert, awake, oriented to person, oriented to place, oriented to time, oriented to situation, CN II-XII grossly intact Psychiatric exam: ABSENT: agitated, anxious Results Laboratory Results: WBC 5.5 10^3/uL (4.0-10.5) 02/06/20 04:15 RBC 3.47 10^6/uL (3.72-5.28) L 02/06/20 04:15 Hgb 10.9 g/dL (12.0-15.5) L 02/06/20 04:15 Hct 32.6 % (36.0-47.0) L 02/06/20 04:15 MCV 94 fl (80-97) 02/06/20 04:15 MCH 31.5 pg (27.0-33.4) 02/06/20 04:15 MCHC 33.6 g/dL (32.0-36.0) 02/06/20 04:15 RDW 19.7 % (11.5-14.0) H 02/06/20 04:15 Plt Count 106 10^3/uL (150-450) L 02/06/20 04:15 Lymph % (Auto) 16.7 % (13-45) 02/06/20 04:15 [place] % (Auto) 8.5 % (3-13) 02/06/20 04:15 Eos % (Auto) 0.9 % (0-6) 02/06/20 04:15 Baso % (Auto) 0.7 % (0-2) 02/06/20 04:15 Absolute Neuts (auto) 4.0 10^3/uL (1.7-8.2) 02/06/20 04:15 Absolute Lymphs (auto) 0.9 10^3/uL (0.5-4.7) 02/06/20 04:15 Absolute Monos (auto) 0.5 10^3/uL (0.1-1.4) 02/06/20 04:15 Absolute Eos (auto) 0.1 10^3/uL (0.0-0.6) 02/06/20 04:15 Absolute Basos (auto) 0.0 10^3/uL (0.0-0.2) 02/06/20 04:15 Seg Neutrophils % 73.2 % (42-78) 02/06/20 04:15 Carbonic Acid 1.54 mmol/L (1.05-1.35) H 02/02/20 22:15 HCO3/H2CO3 Ratio 18:1 02/02/20 22:15 ABG pH 7.36 (7.35-7.45) 02/02/20 22:15 ABG pCO2 51.1 mmHg (35-45) H 02/02/20 22:15 ABG pO2 58.5 mmHg (80-100) L 02/02/20 22:15 ABG HCO3 28.4 mmol/L (20-24) H 02/02/20 22:15 ABG Total CO2 30.0 mmol/L (21-25) H 02/02/20 22:15 ABG O2 Saturation 89.1 % (94-98) L 02/02/20 22:15 ABG Base Excess 2.3 mmol/L 02/02/20 22:15 FiO2 4.0 02/02/20 22:15 Sodium 134.3 mmol/L (137-145) L 02/06/20 04:15 Potassium 3.5 mmol/L (3.6-5.0) L 02/06/20 04:15 Chloride 97 mmol/L (98-107) L 02/06/20 04:15 Carbon Dioxide 30 mmol/L (22-30) 02/06/20 04:15 Anion Gap 7 (5-19) 02/06/20 04:15 BUN 11 mg/dL (7-20) 02/06/20 04:15 Creatinine 0.56 mg/dL (0.52-1.25) 02/06/20 04:15 Est GFR ( Amer) > 60 (>60) 02/06/20 04:15 Est GFR (MDRD) Non-Af > 60 (>60) 02/06/20 04:15 Glucose 75 mg/dL (75-110) 02/06/20 04:15 POC Glucose 77 mg/dL (70-110) 02/08/20 10:00 Insulin Level 1.4 uIU/mL (2.6-24.9) L 02/02/20 18:10 Proinsulin 1.7 pmol/L (0.0-10.0) 02/02/20 18:10 C-Peptide 0.9 ng/mL (1.1-4.4) L 02/02/20 18:10 Lactic Acid 1.0 mmol/L (0.7-2.1) 02/02/20 18:10 Calcium 8.4 mg/dL (8.4-10.2) 02/06/20 04:15 Magnesium 1.7 mg/dL (1.6-2.3) 02/02/20 05:25 Total Bilirubin 0.7 mg/dL (0.2-1.3) 02/06/20 04:15 Direct Bilirubin 0.2 mg/dL (0.0-0.4) 02/06/20 04:15 Neonat Total Bilirubin Not Reportable 02/06/20 04:15 Neonat Direct Bilirubin Not Reportable 02/06/20 04:15 Neonat Indirect Bili Not Reportable 02/06/20 04:15 AST 32 U/L (14-36) 02/06/20 04:15 ALT 9 U/L (<35) 02/06/20 04:15 Alkaline Phosphatase 138 U/L (38-126) H 02/06/20 04:15 Ammonia < 8.7 umol/L (9-33) L 01/30/20 17:21 Creatine Kinase 34 U/L (30-135) 01/30/20 11:11 CK-MB (CK-2) 1.85 ng/mL (<4.55) 01/30/20 11:11 Troponin I < 0.012 ng/mL 01/30/20 14:09 NT-Pro-B Natriuret Pep 2050 pg/mL (<125) H 01/30/20 11:11 Total Protein 6.0 g/dL (6.3-8.2) L 02/06/20 04:15 Albumin 2.4 g/dL (3.5-5.0) L 02/06/20 04:15 Beta-Hydroxybutyrate 3.5 mg/dL (.) H 02/02/20 18:10 Random Cortisol 23.10 ug/dL (None Established) 02/02/20 18:10 Cortisol AM Sample 13.20 ug/dL (4.46-22.7) 02/03/20 04:38 Urine Color YELLOW 01/30/20 13:40 Urine Appearance CLEAR 01/30/20 13:40 Urine pH 5.0 (5.0-9.0) 01/30/20 13:40 Ur Specific [place] 1.018 01/30/20 13:40 Urine Protein 30 mg/dL (NEGATIVE) H 01/30/20 13:40 Urine Glucose (UA) NEGATIVE mg/dL (NEGATIVE) 01/30/20 13:40 Urine Ketones 80 mg/dL (NEGATIVE) H 01/30/20 13:40 Urine Blood NEGATIVE (NEGATIVE) 01/30/20 13:40 Urine Nitrite NEGATIVE (NEGATIVE) 01/30/20 13:40 Urine Bilirubin NEGATIVE (NEGATIVE) 01/30/20 13:40 Urine Urobilinogen NEGATIVE mg/dL (<2.0) 01/30/20 13:40 Ur Leukocyte Esterase NEGATIVE (NEGATIVE) 01/30/20 13:40 Urine WBC (Auto) 1 /HPF 01/30/20 13:40 U Hyaline Cast (Auto) 1 /LPF 01/30/20 13:40 Squamous Epi Cells Auto 2 /HPF 01/30/20 13:40 Urine Mucus (Auto) RARE /LPF 01/30/20 13:40 Urine Ascorbic Acid NEGATIVE (NEGATIVE) 01/30/20 13:40 Urine Opiates Screen UNCONFIRMED POSITIVE 01/30/20 17:20 Urine Methadone Screen NEGATIVE 01/30/20 17:20 Ur Barbiturates Screen NEGATIVE 01/30/20 17:20 Ur Phencyclidine Scrn NEGATIVE 01/30/20 17:20 Ur Amphetamines Screen NEGATIVE 01/30/20 17:20 U Benzodiazepines Scrn NEGATIVE 01/30/20 17:20 Urine Cocaine Screen NEGATIVE 01/30/20 17:20 U Marijuana (THC) Screen NEGATIVE 01/30/20 17:20 Serum Alcohol < 10 mg/dL (NONE DETECTED) 01/30/20 11:11 01/30/20 01/30/20 11:11 14:09 CK-MB (CK-2) 1.85 Troponin I < 0.012 < 0.012 NT-Pro-B Natriuret Pep 2050 H Impressions: Chest X-Ray 01/30/20 11:31 IMPRESSION: STABLE MARKED CARDIOMEGALY. NO ACUTE RADIOGRAPHIC FINDING IN THE CHEST. Head CT 01/30/20 11:40 IMPRESSION: MILD CHRONIC CHANGES OF ATROPHY AND MICROVASCULAR ISCHEMIA. DIFFUSE SINUS DISEASE. NO ACUTE PROCESS. EVIDENCE OF ACUTE STROKE: NO. Abdomen Ultrasound 02/01/20 00:00 IMPRESSION: Minimal ascites. Otherwise negative. Chest X-Ray 02/01/20 00:00 IMPRESSION: 1. Low lung volumes with compressive changes with mild nonspecific patchy bibasilar opacities and evidence of trace bilateral pleural effusions. 2. Redemonstration of enlargement of the cardiac silhouette. Chest X-Ray 02/02/20 00:00 IMPRESSION: Mild pulmonary edema pattern, without pleural effusions or focal consolidation. Chest X-Ray 02/07/20 00:00 IMPRESSION: 1. Stable enlargement of the cardiac silhouette. 2. No definite acute intrathoracic disease. 3. Stable right IJ central venous catheter. Plan Health Concerns: Significant hypoglycemia with unknown etiology is the biggest concern. Plan of Treatment: A table outlining interventions for different glucose levels was provided to the patient. I explained that she does need to see an railway yard assistant. The specialty studies did not fit any particular pattern of pathology. The frequent Accu-Cheks and administration of glucose along with the availability of a glucagon pen should be an adequate temporizing measure until she sees the specialist. Goals: Diagnosing exact etiology of the hypoglycemia and treating appropriately. Ongoing care for the right foot wound. Time Spent: Greater than 30 Minutes Stroke Is this a Stroke Patient?: No Acute Heart Failure Is this a Heart Failure Patient?: No
[2020-02-08] MEDS: ACETAMINOPHEN 325 MG TABLET PO PRN (15:13)
[2020-02-08 16:51] VITALS: BP 104/64
== END 2020-02-08 16:45 | disposition home or self-care (01) | DRG 640 ==
LOC: ER 11:02 → EH 16:57 → 4W 18:33 → 5 01-31 16:16
PROVIDERS: ADMIT Hospitalist; ATTEND Hospitalist
PROC: 5A09457 Assistance with Respiratory Ventilation, 24-96 Consecutive Hours, Continuous Positive Airway Pressure (ICD-10-PCS; principal; 2020-01-30)
DX: E16.2 Hypoglycemia, unspecified (principal); I50.33 Acute on chronic diastolic (congestive) heart failure; L03.116 Cellulitis of left lower limb; F11.20 Opioid dependence, uncomplicated; J96.12 Chronic respiratory failure with hypercapnia; C34.82 Malignant neoplasm of overlapping sites of left bronchus and lung; L03.115 Cellulitis of right lower limb; I11.0 Hypertensive heart disease with heart failure; R41.82 Altered mental status, unspecified; J44.9 Chronic obstructive pulmonary disease, unspecified; I27.20 Pulmonary hypertension, unspecified; Z99.81 Dependence on supplemental oxygen; L97.512 Non-pressure chronic 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 layer exposed; G47.30 Sleep apnea, unspecified; E66.9 Obesity, unspecified; M19.90 Unspecified osteoarthritis, unspecified site; F32.9 Major depressive disorder, single episode, unspecified; G89.29 Other chronic pain; F17.210 Nicotine dependence, cigarettes, uncomplicated; D69.59 Other secondary thrombocytopenia; F10.20 Alcohol dependence, uncomplicated; Z79.51 Long term (current) use of inhaled steroids; Z82.49 Family history of ischemic heart disease and other diseases of the circulatory system; Z88.8 Allergy status to other drugs, medicaments and biological substances; Z88.0 Allergy status to penicillin; Z68.31 Body mass index [BMI] 31.0-31.9, adult
CPT/HCPCS: 36415; 36600; 70450; 71045; 76705; 80048; 80053; 80307; 81001; 82010; 82140; 82533; 82550; 82553; 82803; 82947; 82962; 83525; 83605; 83735; 83880; 84206; 84484; 84681; 85025; 85027; 87040; 87070; 93005; 93010; 94640; 94660; 96365; 96366; 96368; 96375; 96376; 99285; J0571; J1642; J1650; J1940; J1956; J2020; J2060; J2310; J2405; J3411; J3475; J3480; J3490; J7030; J7040; J7042; J7050; J7613; P9047

== ENCOUNTER 2020-03-01 05:35 | Inpatient (IN) | payer OTHER ==
[2020-03-01] MEDS ORDERED: NITROGLYCERIN 2% OINTMENT 1 GM PACKET TP ONE (05:44)
[2020-03-01] MEDS ORDERED: FUROSEMIDE INJ/PF 20 MG/2 ML SDV IV ONE (05:44)
--- NOTE | 2020-03-01 05:53 | ER Document Report ---
ED General - General Chief Complaint: Respiratory Distress Stated Complaint: CONGESTIVE HEART FAILURE Time Seen by Provider: 03/01/20 05:43 Primary Care Provider: GALA FINNEY MD [Primary Care Provider] - Follow up as needed TRAVEL OUTSIDE OF THE [place] IN LAST 30 DAYS: No - HPI Context: This is a 59-year-old female with a history of CHF and lung cancer who presents to the ED via EMS, on CPAP, after EMS was dispatched to her home for patient having shortness of breath. Patient has a Port-A-Cath in place and sees Dr. Finney. Patient has nonverbal at this time, seems fatigued and is on CPAP. EMS is not able to provide further history. Patient is not able to relate i nformation in terms of onset of symptoms, severity of symptoms, whether or not she is in pain, quality of symptoms, exacerbating or alleviating factors. It is unknown at this time whether or not the patient has a history of smoking or is currently a smoker. A brief review of the patient's diagnosis list reveals that she does have a history of alcohol abuse and opiate abuse. It is unknown at thi s time whether the patient has any history of COVID-19 infection, known exposure to persons positive for COVID-19 or persons under investigation for COVID-19. Associated symptoms: Other - Unknown Exacerbated by: Other - Unknown Relieved by: Other - Unknown - Related Data Allergies/Adverse Reactions: aspirin [Aspirin] Allergy (Verified 10/06/18 17:54) NSAIDS (Non-Steroidal Anti-Inflamma [Nsaids] Allergy (Verified 10/06/18 17:54) Penicillins Allergy (Verified 10/06/18 17:54) Past Medical History - General Information source: Emergency Med Personnel Cannot obtain history due to: Altered mental status, Other - Shortness of breath and on CPAP - Social History Smoking Status: Unknown if Ever Smoked Chew tobacco use (# tins/day): No Frequency of alcohol use: None Drug Abuse: None Lives with: Family Family History: Reviewed & Not Pertinent, CAD, Malignancy Patient has homicidal ideation: No - Past Medical History Cardiac Medical History: Reports: Hx Congestive Heart Failure, Hx Hypertension, Hx Peripheral Vascular Disease Denies: Hx Atrial Fibrillation, Hx Coronary Artery Disease, Hx DVT, Hx Heart Attack, Hx Hypercholesterolemia, Hx Pulmonary Embolism Pulmonary Medical History: Reports: Hx Asthma, Hx Bronchitis, Hx COPD, Hx Pneumonia, Hx Respiratory Failure - Chronic on home O2, Hx Sleep Apnea Neurological Medical History: Denies: Hx Cerebrovascular Accident, Hx Seizures Endocrine Medical History: Denies: Hx Diabetes Mellitus Type 1, Hx Diabetes Mellitus Type 2, Hx Hyperthyroidism, Hx Hypothyroidism Renal/ Medical History: Denies: Hx Peritoneal Dialysis Malignancy Medical History: Reports: Hx Lung Cancer GI Medical History: Reports: Hx Gastroesophageal Reflux Disease. Denies: Hx Cirrhosis, Hx Hepatitis Musculoskeletal Medical History: Reports Hx Arthritis, Denies Hx Fibromyalgia, Reports Hx Gout Skin Medical History: Denies Hx Eczema, Denies Hx Psoriasis Psychiatric Medical History: Reports: Hx Depression Infectious Medical History: Denies: Hx Hepatitis Past Surgical History: Reports: Hx Tubal Ligation, Other - Unilateral salpingectomy, colonoscopy - Immunizations Hx Diphtheria, Pertussis, Tetanus Vaccination: Yes Review of Systems - Review of Systems -: Yes ROS unobtainable due to patient's medical condition Physical Exam - Vital signs Vitals: Resp Pulse Ox 38 H 100 03/01/20 05:35 03/01/20 05:35 - Notes Notes: CONSTITUTIONAL [Vital signs reviewed, patient is in acute respiratory distress, on CPAP, and is somewhat somnolent HEAD [Atraumatic, Normocephalic.] EYES [Eyes are normal to inspection, No discharge from eyes, Extraocular muscles intact, Sclera are normal, Conjunctiva are normal.] ENT [External ears normal to inspection, Nose examination normal, Mouth normal to inspection.] NECK [Normal ROM, No jugular venous distention, No meningeal signs, ] RESPIRATORY CHEST PowerPort is seen on the right side of the patient's chest. Patient has diffuse Rales bilaterally] CARDIOVASCULAR [Tachycardia, No murmurs, Normal S1 S2, No rub, No gallop.] ABDOMEN [Abdomen is nontender, No pulsatile masses, No other masses, Bowel sounds normal, No distension, No peritoneal signs, No hernias.] BACK [There is no CVA Tenderness, There is no tenderness to palpation, Normal inspection.] UPPER EXTREMITY [Inspection normal, No cyanosis, No clubbing, No edema, LOWER EXTREMITY No deformities noted. There is +1 pitting edema in lower extremities bilaterally NEURO Patient is somewhat somnolent and nonverbal. SKIN [Skin is warm, Skin is dry, Skin is normal color.] PSYCHIATRIC [Depressed affect. ] Course - Vital Signs Vital signs: Temp Pulse Resp BP Pulse Ox 35 H 116/80 100 03/01/20 05:38 03/01/20 05:38 03/01/20 05:35 - Laboratory Result Diagrams: 03/01/20 05:59 03/01/20 05:59 Laboratory results interpreted by me: 03/01/20 03/01/20 03/01/20 05:59 05:59 05:59 WBC 10.9 H RDW 22.4 H Seg Neuts % (Manual) 94 H Lymphocytes % (Manual) 3 L Abs Neuts (Manual) 10.2 H Abs Lymphs (Manual) 0.3 L Sodium 136.1 L Creatinine 0.45 L Glucose 69 L Alkaline Phosphatase 146 H NT-Pro-B Natriuret Pep 2780 H Albumin 3.0 L Urine Ketones Urine Urobilinogen Ur Leukocyte Esterase 03/01/20 06:12 WBC RDW Seg Neuts % (Manual) Lymphocytes % (Manual) Abs Neuts (Manual) Abs Lymphs (Manual) Sodium Creatinine Glucose Alkaline Phosphatase NT-Pro-B Natriuret Pep Albumin Urine Ketones 20 H Urine Urobilinogen 2.0 H Ur Leukocyte Esterase SMALL H - Consults Dr. Chatterjee Time consulted: 08:26 Reason for consultation: 03/01/20 08:27 Pneumonia, acute respiratory failure on BiPAP Consulted provider: will come to ER Critical Care Note - Critical Care Note Total time excluding time spent on procedures (mins): 120 - Management of patient with acute respiratory failure, pneumonia, CHF, hypoglycemia on BiPAP Discharge - Discharge Clinical Impression: Hypoglycemia, Tobacco abuse CHF (congestive heart failure) Qualifiers: Heart failure type: unspecified Heart failure chronicity: unspecified Qualified Code(s): I50.9 - Heart failure, unspecified Pneumonia Qualifiers: Pneumonia type: due to unspecified organism Laterality: unspecified laterality Lung location: unspecified part of lung Qualified Code(s): J18.9 - Pneumonia, unspecified organism UTI (urinary tract infection) Qualifiers: Urinary tract infection type: site unspecified Hematuria presence: without hematuria Qualified Code(s): N39.0 - Urinary tract infection, site not specified Respiratory failure, acute Qualifiers: Respiratory failure complication: unspecified whether with hypoxia or hypercapnia Qualified Code(s): J96.00 - Acute respiratory failure, unspecified whether with hypoxia or hypercapnia Condition: Stable Disposition: ADMITTED INPATIENT Admitting Provider: Shena (Hospitalist) Referrals: GALA FINNEY MD [Primary Care Provider] - Follow up as needed
[2020-03-01] MEDS ORDERED: NALOXONE HCL INJ/PF 0.4 MG/1 ML SDV IV ONE (06:06)
[2020-03-01 06:36] LABS: APPEARANCE,URINE CLEAR; BILIRUBIN,URINE NEGATIVE (NEGATIVE); COLOR,URINE YELLOW; GLUCOSE, URINE NEGATIVE (NEGATIVE); KETONES,URINE 20 mg/dL (NEGATIVE); LEUKOCYTE ESTERASE,URINE SMALL (NEGATIVE); NITRITE,URINE NEGATIVE (NEGATIVE); PROTEIN,URINE NEGATIVE (NEGATIVE); URINE SPECIFIC GRAVITY 1.011
[2020-03-01 06:51] LABS: HEMATOCRIT 37.8 % (36.0-47.0); HEMOGLOBIN 12.5 g/dL (12.0-15.5); MEAN CORPUSCULAR HEMOGLOBIN 31.9 pg (27.0-33.4); MEAN CORPUSCULAR VOLUME 97 fl (80-97); PLATELET COUNT 205 10^3/uL (150-450); RED BLOOD COUNT 3.91 10^6/uL (3.72-5.28); RED CELL DISTRIBUTION WIDTH 22.4 % (11.5-14.0); WHITE BLOOD COUNT 10.9 10^3/uL (4.0-10.5)
[2020-03-01 06:52] LABS: URINE AMPHETAMINES SCREEN NEGATIVE; URINE BARBITURATES SCREEN NEGATIVE; URINE COCAINE SCREEN NEGATIVE; URINE MARIJUANA (THC) SCREEN NEGATIVE; URINE METHADONE SCREEN NEGATIVE
[2020-03-01 06:55] LABS: URINE PHENCYCLIDINE SCREEN NEGATIVE
[2020-03-01 06:57] LABS: ALKALINE PHOSPHATASE 146 U/L (38-126); ANION GAP 12 (5-19); ASPARTATE AMINO TRANSFERASE 27 U/L (14-36); BILIRUBIN,DIRECT 0.4 mg/dL (0.0-0.4); BILIRUBIN,TOTAL 1.1 mg/dL (0.2-1.3); BLOOD UREA NITROGEN 7 mg/dL (7-20); CALCIUM 9.2 mg/dL (8.4-10.2); CARBON DIOXIDE 26 mmol/L (22-30); CHLORIDE 98 mmol/L (98-107); POTASSIUM 3.8 mmol/L (3.6-5.0); TOTAL PROTEIN 7.3 g/dL (6.3-8.2)
[2020-03-01 07:07] LABS: ALCOHOL < 10 mg/dL (NONE DETECTED); TROPONIN I 0.013 ng/mL
[2020-03-01 07:09] LABS: GLUCOSE 69 mg/dL (75-110)
[2020-03-01 07:16] LABS: ABSOLUTE LYMPHOCYTES# (MANUAL) 0.3 10^3/uL (0.5-4.7); ABSOLUTE MONOCYTES # (MANUAL) 0.3 10^3/uL (0.1-1.4); BASOPHILS % (MANUAL) 0 % (0-2); EOSINOPHILS % (MANUAL) 0 % (0-6); LYMPHOCYTES % (MANUAL) 3 % (13-45); MONOCYTES % (MANUAL) 3 % (3-13); POLYCHROMASIA 1+; SEGMENTED NEUTROPHILS % (MAN) 94 % (42-78); TOTAL CELLS COUNTED 100
[2020-03-01 07:17] LABS: ANISOCYTOSIS 3+; BURR CELLS 1+; PLATELET COMMENT ADEQUATE; POIKILOCYTOSIS 1+; TARGET CELLS 1+
[2020-03-01 07:27] LABS: URINE BENZODIAZEPINES SCREEN UNCONFIRMED POSITIVE
[2020-03-01] MEDS ORDERED: DEXTROSE 50%-WATER 25 GM/50 ML DISP.SYRIN IV ONE (07:39)
--- NOTE | 2020-03-01 07:45 | RADIOLOGY REPORT (SQ) ---
CHEST X-RAY 1 VIEW on 03/01/2020 at 6:54 AM CLINICAL INDICATION: Shortness of breath COMPARISON: 02/07/2020 FINDINGS: Right IJ Port-A-Cath tip is in the SVC. Cardiomegaly is noted. There is worsening right lower lung opacity consistent with likely worsening pneumonia. A small right pleural effusion is likely present. There is mild left basilar atelectasis or pneumonia. IMPRESSION: Worsening right lower lung opacity likely worsening pneumonia and small right pleural effusion.
[2020-03-01] MEDS ORDERED: NORMAL SALINE 1000 ML 2,300 ML IV ONE (08:05)
[2020-03-01] MEDS ORDERED: LEVOFLOXACIN 750 MG/D5W RTU 750 MG/150 ML RTUPB IV ONE (08:09)
[2020-03-01 08:21] LABS: INTERNATIONAL RATION (INR) 1.12; PROTHROMBIN TIME 14.6 SEC (11.4-15.4)
[2020-03-01] MEDS ORDERED: IPRATROPIUM/ALBUTEROL 0.5-2.5 MG/3 ML AMPUL NEB PRN (08:57)
[2020-03-01] MEDS ORDERED: MAGNESIUM HYDROXIDE SUSP 30 ML UDCUP PO PRN (08:57)
--- NOTE | 2020-03-01 09:21 | PDOC H&P ---
History of Present Illness Admission Date/PCP: GALA FINNEY MD Patient complains of: This patient presented to the emergency room with complaints of difficulty breathing and shortness of breath. History of Present Illness: DYLAN SWARTZ is a 59 year old female This patient presented to the emergency room with complaints of difficulty breathing and shortness of breath. Please note most of the information is obtained from the records as patient is unable to provide any history. Chest x- ray revealed worsening right lower lung opacity likely worsening pneumonia and small right pleural effusion. He does have a right IJ Port-A-Cath the SVC has cardiomegaly. EKG shows PVCs with sinus tachycardia. She has been admitted for pneumonia. She was just recently discharged on January 08 where she was treated for acute on chronic diastolic heart failure in addition to multiple other pathologies leading thrombocytopenia, history of stage III lung cancer for which she was supposed to follow-up with oncology, hypoglycemia and alcohol dependency, bilateral lower extremity cellulitis for which she was treated with Levaquin and Zyvox, chronic respiratory failure with hypercapnia Past Medical History Cardiac Medical History: Reports: Congestive Heart Failure, Hypertension, Peripheral Vascular Disease Denies: Atrial Fibrillation, Coronary Artery Disease, DVT, Myocardial Infarction, Hyperlipidema, Pulmonary Embolism Pulmonary Medical History: Reports: Asthma, Bronchitis, Chronic Obstructive Pulmonary Disease (COPD), Pneumonia, Respiratory Failure - Chronic on home O2, Sleep Apnea Neurological Medical History: Denies: Seizures Endocrine Medical History: Denies: Diabetes Mellitus Type 1, Diabetes Mellitus Type 2, Hyperthyroidism, Hypothyroidism Malignancy Medical History: Reports: Lung Cancer GI Medical History: Reports: Gastroesophageal Reflux Disease Denies: Cirrhosis, Hepatitis Musculoskeltal Medical History: Reports: Arthritis, Gout Denies: Fibromyalgia Skin Medical History: Denies: Eczema, Psoriasis Psychiatric Medical History: Reports: Depression Hematology: Reports: Anemia Denies: Bleeding Tendencies Past Surgical History Past Surgical History: Reports: Tubal Ligation, Other - Unilateral salpingectomy, colonoscopy Social History Information Source: [facility] Records Lives with: Family Smoking Status: Unknown if Ever Smoked Electronic Cigarette use?: No Frequency of Alcohol Use: Heavy Hx Recreational Drug Use: Yes - Remote past, no current use Drugs: None Hx Prescription Drug Abuse: No - Advance Directive Resuscitation Status: Full Code Family History Family History: Reviewed & Not Pertinent, CAD, Malignancy Parental Family History Reviewed: No Children Family History Reviewed: No Sibling(s) Family History Reviewed.: No - Unable to obtain information due to patient's respiratory status Medication/Allergy Home Medications: Albuterol Sulfate [Albuterol Sulfate Hfa] 1 puff IH Q6HP PRN 09/04/19 Fluticasone/Umeclidin/Vilanter [Trelegy 100-62.5-25 Mcg Ellipta 14 Dose/Dpi] 1 puff IH DAILY 09/04/19 Hydrocortisone [Hydrocortisone 2.5% Cream 28 gm (Clinic Use)] 1 applic TOP BID 09/04/19 Tussionex 5 ml PO Q12HP PRN 09/04/19 Nystatin [Mycostatin Cream 15 gm] 1 applic TP BID 7 Days #1 tube 11/22/19 Hydroxyzine Pamoate [Vistaril 50 mg Capsule] 50 mg PO DAILY 12/26/19 Furosemide [Lasix 20 mg Tablet] 20 mg PO DAILYP PRN #30 tablet 12/31/19 Magnesium Oxide [Mag-Oxide Magnesium] 200 mg PO BID #60 tablet 12/31/19 Buprenorphine HCl [Subutex 2 mg Sl Tablet] 2 mg SL DAILY tab.subl 02/08/20 Collagenase Clostridium Hist. [Santyl Ointment 30 gm] 1 applic TOP DAILY tube 02/08/20 Dextrose [Dex4 Glucose] 15 gm PO ASDIR PRN #50 ml 02/08/20 Furosemide [Lasix 20 mg Tablet] 20 mg PO DAILY tablet 02/08/20 Glucagon [Gvoke Hypopen 2-Pack] 1 mg SQ ASDIR PRN #1 auto.injct 02/08/20 Loperamide HCl [Imodium 2 mg Capsule] 2 mg PO Q6HP PRN capsule 02/08/20 Midodrine HCl [Proamatine 5 mg Tablet] 5 mg PO TID 14 Days #42 tablet 02/08/20 Potassium Chloride [Klor-Con 10 Meq Tablet ER] 20 meq PO DAILY #60 tablet.er 02/08/20 Allergies/Adverse Reactions: aspirin [Aspirin] Allergy (Verified 10/06/18 17:54) NSAIDS (Non-Steroidal Anti-Inflamma [Nsaids] Allergy (Verified 10/06/18 17:54) Penicillins Allergy (Verified 10/06/18 17:54) Review of Systems ROS unobtainable: Other - Due to respiratory status and currently on BiPAP Physical Exam Vital Signs: Temp Pulse Resp BP Pulse Ox 35 H 116/80 100 03/01/20 05:38 03/01/20 05:38 03/01/20 05:35 Intake & Output 02/29/20 03/01/20 03/02/20 06:59 06:59 06:59 Weight 76.7 kg General appearance: PRESENT: disheveled, mild distress, other - Older looking than stated age Mouth exam: PRESENT: neck supple Neck exam: ABSENT: carotid bruit, JVD Respiratory exam: PRESENT: decreased breath sounds, rhonchi, tachypnea Cardiovascular exam: PRESENT: irregular rhythm, +S1, +S2 GI/Abdominal exam: PRESENT: normal bowel sounds. ABSENT: tenderness Rectal exam: PRESENT: deferred Extremities exam: PRESENT: other - Chronic dermatitis 3+ edema chronic skin changes Neurological exam: PRESENT: alert, other - Unable to fully evaluate due to respiratory status Skin exam: PRESENT: dry, rash Results Laboratory Results: 03/01/20 05:59 03/01/20 05:59 03/01/20 03/01/20 03/01/20 05:59 05:59 05:59 WBC 10.9 H RBC 3.91 Hgb 12.5 Hct 37.8 MCV 97 MCH 31.9 MCHC 33.0 RDW 22.4 H Plt Count 205 Seg Neutrophils % Not Reportable Carbonic Acid HCO3/H2CO3 Ratio ABG pH ABG pCO2 ABG pO2 ABG HCO3 ABG O2 Saturation ABG Base Excess FiO2 Sodium 136.1 L Potassium 3.8 Chloride 98 Carbon Dioxide 26 Anion Gap 12 BUN 7 Creatinine 0.45 L Est GFR ( Amer) > 60 Glucose 69 L Lactic Acid 1.2 Calcium 9.2 Total Bilirubin 1.1 AST 27 Alkaline Phosphatase 146 H Total Protein 7.3 Albumin 3.0 L Urine Color Urine Appearance Urine pH Ur Specific [place] Urine Protein Urine Glucose (UA) Urine Ketones Urine Blood Urine Nitrite Ur Leukocyte Esterase Urine WBC (Auto) Urine RBC (Auto) 03/01/20 03/01/20 06:08 06:12 WBC RBC Hgb Hct MCV MCH MCHC RDW Plt Count Seg Neutrophils % Carbonic Acid Cancelled HCO3/H2CO3 Ratio Cancelled ABG pH Cancelled ABG pCO2 Cancelled ABG pO2 Cancelled ABG HCO3 Cancelled ABG O2 Saturation Cancelled ABG Base Excess Cancelled FiO2 Cancelled Sodium Potassium Chloride Carbon Dioxide Anion Gap BUN Creatinine Est GFR ( Amer) Glucose Lactic Acid Calcium Total Bilirubin AST Alkaline Phosphatase Total Protein Albumin Urine Color YELLOW Urine Appearance CLEAR Urine pH 5.0 Ur Specific [place] 1.011 Urine Protein NEGATIVE Urine Glucose (UA) NEGATIVE Urine Ketones 20 H Urine Blood NEGATIVE Urine Nitrite NEGATIVE Ur Leukocyte Esterase SMALL H Urine WBC (Auto) 25 Urine RBC (Auto) 1 03/01/20 05:59 Troponin I 0.013 NT-Pro-B Natriuret Pep 2780 H Impressions: Chest X-Ray 03/01/20 05:46 IMPRESSION: Worsening right lower lung opacity likely worsening pneumonia and small right pleural effusion. Assessment and Plan - Diagnosis (1) Pneumonia Qualifiers: Pneumonia type: due to unspecified organism Laterality: right Lung location: lower lobe of lung Qualified Code(s): J18.9 - Pneumonia, unspecified organism Is this a current diagnosis for this admission?: Yes Plan: Patient was recently treated with Levaquin and Zyvox for lower extremity cellulitis. She has been placed back on Levaquin for pneumonia but will consider adding another agent as she was just recently of Levaquin (2) UTI (urinary tract infection) Qualifiers: Urinary tract infection type: site unspecified Hematuria presence: without hematuria Qualified Code(s): N39.0 - Urinary tract infection, site not specified Is this a current diagnosis for this admission?: Yes (3) Acute on chronic respiratory failure with hypoxia Is this a current diagnosis for this admission?: Yes (4) Chronic venous insufficiency of lower extremity Is this a current diagnosis for this admission?: Yes - Plan Summary Summary: Recent echocardiogram done revealed an ejection fraction of 60% with grade 2 diastolic dysfunction and right ventricular dilatation moderate pulmonary hypertension moderate tricuspid regurgitation. No need for repeat echo at this time. She appears to be euvolemic although her BNP is higher than her baseline at 2780 Thrombocytopenia has resolved so patient will be placed on prophylactic anticoagulant I have placed on ceftriaxone as well as Solu-Medrol and zinc oxide for tentative Covid diagnosis and this will need to be reevaluated once the result is available. I did speak with patient's spouse and updated him on patient's condition which is basically unchanged since admission at this morning. Patient's medications are not available for reconciliation but I have reviewed them and they will be continued once pharmacy is done the proper documentation - Time Time Spent with patient: 35 or more minutes Medications reviewed and adjusted accordingly: Yes Anticipated Discharge Disposition: Home, Self Care Anticipated Discharge Timeframe: within 72 hours
[2020-03-01] MEDS: DOCUSATE SODIUM 100 MG CAPSULE PO SCH (11:15)
[2020-03-01] MEDS: FAMOTIDINE INJ/PF 20 MG/2 ML SDV IV SCH ×2 (11:20→22:19)
[2020-03-01] MEDS: ENOXAPARIN SODIUM INJ 40 MG/0.4 ML DISP.SYRIN SUBCUT SCH (11:20)
[2020-03-01] MEDS: IPRATROPIUM/ALBUTEROL 0.5-2.5 MG/3 ML AMPUL NEB SCH ×2 (16:40→21:09)
--- NOTE | 2020-03-01 18:58 | EKG REPORT ---
SEVERITY:- ABNORMAL ECG - SINUS TACHYCARDIA VENTRICULAR PREMATURE COMPLEX PROBABLE INFERIOR INFARCT, AGE INDETERMINATE : Confirmed by: Cassandra Davis MD 01-Mar-2020 18:57:32
[2020-03-02] MEDS: IPRATROPIUM/ALBUTEROL 0.5-2.5 MG/3 ML AMPUL NEB SCH ×4 (02:27→20:06)
[2020-03-02 05:48] LABS: ABSOLUTE LYMPHOCYTES (AUTO) 0.9 10^3/uL (0.5-4.7); ABSOLUTE MONOCYTES (AUTO) 0.7 10^3/uL (0.1-1.4); ABSOLUTE NEUT (AUTO) 4.9 10^3/uL (1.7-8.2); BASOPHILS % (AUTO) 0.6 % (0-2); EOSINOPHILS % (AUTO) 0.2 % (0-6); HEMATOCRIT 33.9 % (36.0-47.0); HEMOGLOBIN 11.2 g/dL (12.0-15.5); LYMPHOCYTES % (AUTO) 13.7 % (13-45); MEAN CORPUSCULAR HEMOGLOBIN 31.7 pg (27.0-33.4); MEAN CORPUSCULAR VOLUME 96 fl (80-97); MONOCYTES % (AUTO) 10.1 % (3-13); PLATELET COUNT 164 10^3/uL (150-450); RED BLOOD COUNT 3.52 10^6/uL (3.72-5.28); RED CELL DISTRIBUTION WIDTH 21.8 % (11.5-14.0); SEGMENTED NEUTROPHILS % (AUTO) 75.4 % (42-78); TOTAL CELLS COUNTED % (AUTO) 100 %; WHITE BLOOD COUNT 6.5 10^3/uL (4.0-10.5)
[2020-03-02 06:09] LABS: ANION GAP 9 (5-19); BLOOD UREA NITROGEN 7 mg/dL (7-20); CALCIUM 8.4 mg/dL (8.4-10.2); CARBON DIOXIDE 27 mmol/L (22-30); CHLORIDE 100 mmol/L (98-107); GLUCOSE 73 mg/dL (75-110); POTASSIUM 3.1 mmol/L (3.6-5.0)
[2020-03-02] MEDS ORDERED: POTASSI CL 20 MEQ/50 ML RIDER 20 MEQ/50 ML RTUPB IV ONE (10:22)
--- NOTE | 2020-03-02 10:23 | PDOC PROGRESS REPORT ---
Subjective Date:: 03/02/20 Subjective:: Resting comfortably on BiPAP. Was on nasal cannula for breakfast. FiO2 is 30% with inspiratory 18/expiratory 8. Reason For Visit: ACUTE RESPIRATORY FAILURE, PNEUMONIA Physical Exam Vital Signs: Temp Pulse Resp BP Pulse Ox 98.0 F 114 H 28 H 104/59 L 93 03/02/20 08:08 03/02/20 08:36 03/02/20 08:36 03/02/20 08:10 03/02/20 08:36 Intake & Output 03/01/20 03/02/20 03/03/20 06:59 06:59 06:59 Intake Total 2450 Output Total 1825 Balance 625 Weight 76.7 kg 76.2 kg General appearance: PRESENT: cooperative, mild distress - Mild to moderate distress, well-developed Head exam: PRESENT: atraumatic, normocephalic Mouth exam: PRESENT: other - BiPAP mask in place Respiratory exam: PRESENT: crackles - Bilateral bases, symmetrical, tachypnea. ABSENT: rales, rhonchi, wheezes Cardiovascular exam: PRESENT: RRR, +S1, +S2. ABSENT: bradycardia, diastolic murmur, irregular rhythm, systolic murmur, tachycardia GI/Abdominal exam: PRESENT: normal bowel sounds, soft. ABSENT: distended, guarding, tenderness Rectal exam: PRESENT: deferred Gentrourinary exam: PRESENT: indwelling catheter Extremities exam: PRESENT: pedal edema, +1 edema - Wrinkled skin indicating recent decrease in edema Musculoskeletal exam: ABSENT: deformity, dislocation Neurological exam: PRESENT: alert, awake, oriented to person, oriented to place, oriented to situation, CN II-XII grossly intact. ABSENT: altered Psychiatric exam: PRESENT: appropriate affect. ABSENT: agitated, anxious Focused psych exam: ABSENT: delusional, paranoid, restlessness Skin exam: PRESENT: dry, normal color, warm. ABSENT: rash Results Laboratory Results: 03/02/20 05:35 03/02/20 05:35 03/02/20 03/02/20 05:35 05:35 WBC 6.5 RBC 3.52 L Hgb 11.2 L Hct 33.9 L MCV 96 MCH 31.7 MCHC 33.0 RDW 21.8 H Plt Count 164 Seg Neutrophils % 75.4 Sodium 136.1 L Potassium 3.1 L Chloride 100 Carbon Dioxide 27 Anion Gap 9 BUN 7 Creatinine 0.36 L Est GFR ( Amer) > 60 Glucose 73 L Calcium 8.4 03/01/20 05:59 Troponin I 0.013 NT-Pro-B Natriuret Pep 2780 H Impressions: Chest X-Ray 03/01/20 05:46 IMPRESSION: Worsening right lower lung opacity likely worsening pneumonia and small right pleural effusion. Assessment and Plan - Diagnosis (1) Pneumonia Qualifiers: Pneumonia type: due to unspecified organism Laterality: right Lung location: lower lobe of lung Qualified Code(s): J18.9 - Pneumonia, unspecified organism Is this a current diagnosis for this admission?: Yes (2) UTI (urinary tract infection) Qualifiers: Urinary tract infection type: site unspecified Hematuria presence: without hematuria Qualified Code(s): N39.0 - Urinary tract infection, site not specified Is this a current diagnosis for this admission?: Yes (3) Acute on chronic diastolic (congestive) heart failure Is this a current diagnosis for this admission?: Yes (4) Acute on chronic respiratory failure with hypoxia Is this a current diagnosis for this admission?: Yes (5) Chronic venous insufficiency of lower extremity Is this a current diagnosis for this admission?: Yes - Plan Summary Summary: Recent echocardiogram done revealed an ejection fraction of 60% with grade 2 diastolic dysfunction and right ventricular dilatation moderate pulmonary hypertension moderate tricuspid regurgitation. No need for repeat echo at this time. She appears to be euvolemic although her BNP is higher than her baseline at 2780 Thrombocytopenia has resolved so patient will be placed on prophylactic anticoagulant I have placed on ceftriaxone as well as Solu-Medrol and zinc oxide for tentative Covid diagnosis and this will need to be reevaluated once the result is available. I did speak with patient's spouse and updated him on patient's condition which is basically unchanged since admission at this morning. Patient's medications are not available for reconciliation but I have reviewed them and they will be continued once pharmacy is done the proper documentation 03/02/2020 Patient on BiPAP 16/8 30%. Reports that she feels a little better. Pneumonia-we will add doxycycline to the ceftriaxone. Acute on chronic diastolic heart failure-continue to monitor intake and output. Continue furosemide. Monitor electrolytes. Venous insufficiency-elevate legs when possible. Consider compression stockings. Acute on chronic respiratory failure-continue BiPAP with an effort to wean back towards room air. Respiratory failure is likely combination of heart failure and pneumonia. Urinary tract [id number]-[id number]-nxzlcyol bacilli preliminary results from urine culture. Continue ceftriaxone. - Time Time Spent with patient: 15-24 minutes Medications reviewed and adjusted accordingly: Yes Anticipated Discharge Disposition: Home with Home Health Anticipated Discharge Timeframe: 4 to 5 day
[2020-03-02] MEDS: FUROSEMIDE INJ/PF 20 MG/2 ML SDV IV SCH (11:32)
[2020-03-02] MEDS: DOCUSATE SODIUM 100 MG CAPSULE PO SCH (11:32)
[2020-03-02] MEDS: METHYLPREDNISOLONE INJ 40 MG/1 ML SDV IV SCH (11:32)
[2020-03-02] MEDS: FAMOTIDINE INJ/PF 20 MG/2 ML SDV IV SCH ×2 (11:33→21:13)
[2020-03-02] MEDS: ENOXAPARIN SODIUM INJ 40 MG/0.4 ML DISP.SYRIN SUBCUT SCH (11:33)
[2020-03-02] MEDS: ZINC SULFATE 220 MG CAPSULE PO SCH (12:08)
[2020-03-02] MEDS: CEFTRIAXONE 2 GM/D5W RTU 2 GM/50 ML RTUPB IV SCH (12:19)
[2020-03-02] MEDS: ACETAMINOPHEN 325 MG TABLET PO PRN (15:45)
[2020-03-02] MEDS: LORAZEPAM INJ 2 MG/1 ML VIAL IV PRN ×2 (16:08→20:43)
[2020-03-02] MEDS: MIDODRINE HCL 5 MG TABLET PO SCH (18:33)
[2020-03-02] MEDS: NYSTATIN CREAM 15 GM TP SCH (19:55)
[2020-03-02] MEDS: HYDROXYZINE PAMOATE 50 MG CAPSULE PO SCH (20:42)
[2020-03-02] MEDS: DOXYCYCLINE HYCLATE 100 MG in DEXTROSE 5%-WATER 250 ML IV SCH (21:13)
[2020-03-02] MEDS: POTASSIUM CHLORIDE 10 MEQ TABLET.ER PO SCH (21:13)
[2020-03-03] MEDS: IPRATROPIUM/ALBUTEROL 0.5-2.5 MG/3 ML AMPUL NEB SCH ×4 (02:19→20:00)
[2020-03-03 07:08] LABS: ABSOLUTE LYMPHOCYTES (AUTO) 1.1 10^3/uL (0.5-4.7); ABSOLUTE MONOCYTES (AUTO) 0.6 10^3/uL (0.1-1.4); ABSOLUTE NEUT (AUTO) 2.6 10^3/uL (1.7-8.2); BASOPHILS % (AUTO) 0.3 % (0-2); HEMATOCRIT 30.6 % (36.0-47.0); LYMPHOCYTES % (AUTO) 25.7 % (13-45); MEAN CORPUSCULAR HEMOGLOBIN 31.6 pg (27.0-33.4); MEAN CORPUSCULAR HGB CONC 32.7 g/dL (32.0-36.0); MEAN CORPUSCULAR VOLUME 97 fl (80-97); MONOCYTES % (AUTO) 14.4 % (3-13); PLATELET COUNT 157 10^3/uL (150-450); RED BLOOD COUNT 3.17 10^6/uL (3.72-5.28); RED CELL DISTRIBUTION WIDTH 21.6 % (11.5-14.0); SEGMENTED NEUTROPHILS % (AUTO) 59.6 % (42-78); TOTAL CELLS COUNTED % (AUTO) 100 %; WHITE BLOOD COUNT 4.4 10^3/uL (4.0-10.5)
--- NOTE | 2020-03-03 07:33 | EKG REPORT ---
SEVERITY:- ABNORMAL ECG - SINUS TACHYCARDIA BORDERLINE INFERIOR Q WAVES CONSSSIDER OLD INFERIOR ME. BORDERLINE T ABNORMALITIES, ANT-LAT LEADS , INCREASED SINCE 03/01/20, CLINICAL CORRELATION NEEDED : Confirmed by: Diaz Chairez MD 03-Mar-2020 07:33:12
[2020-03-03] MEDS: PANTOPRAZOLE SODIUM 40 MG TABLET.DR PO SCH (07:34)
[2020-03-03 09:42] LABS: ANION GAP 6 (5-19); BLOOD UREA NITROGEN 12 mg/dL (7-20); CALCIUM 8.6 mg/dL (8.4-10.2); CARBON DIOXIDE 31 mmol/L (22-30); CHLORIDE 99 mmol/L (98-107); GLUCOSE 87 mg/dL (75-110); POTASSIUM 3.7 mmol/L (3.6-5.0)
[2020-03-03] MEDS: POTASSIUM CHLORIDE 10 MEQ TABLET.ER PO SCH ×2 (09:55→21:37)
[2020-03-03] MEDS: DOCUSATE SODIUM 100 MG CAPSULE PO SCH (09:56)
[2020-03-03] MEDS: MIDODRINE HCL 5 MG TABLET PO SCH ×3 (09:56→17:14)
[2020-03-03] MEDS: METHYLPREDNISOLONE INJ 40 MG/1 ML SDV IV SCH (10:07)
[2020-03-03] MEDS: FUROSEMIDE INJ/PF 20 MG/2 ML SDV IV SCH (10:07)
[2020-03-03] MEDS: FAMOTIDINE INJ/PF 20 MG/2 ML SDV IV SCH ×2 (10:07→21:37)
[2020-03-03] MEDS: HYDROXYZINE PAMOATE 50 MG CAPSULE PO SCH ×3 (10:15→17:14)
[2020-03-03] MEDS: ZINC SULFATE 220 MG CAPSULE PO SCH (10:16)
[2020-03-03] MEDS: ENOXAPARIN SODIUM INJ 40 MG/0.4 ML DISP.SYRIN SUBCUT SCH (10:16)
[2020-03-03] MEDS: CEFTRIAXONE 2 GM/D5W RTU 2 GM/50 ML RTUPB IV SCH (10:31)
[2020-03-03] MEDS: NYSTATIN CREAM 15 GM TP SCH ×2 (10:31→17:14)
[2020-03-03] MEDS: DOXYCYCLINE HYCLATE 100 MG in DEXTROSE 5%-WATER 250 ML IV SCH ×2 (11:42→21:37)
[2020-03-03] MEDS: MORPHINE SULFATE 10 MG/ML INJ IV PRN (13:33)
--- NOTE | 2020-03-03 14:13 | PDOC PROGRESS REPORT ---
Subjective Date:: 03/03/20 Subjective:: Patient quite restless on nasal cannula. Oxygen saturation is declining. Patie nt did receive a dose of lorazepam earlier. Reason For Visit: ACUTE RESPIRATORY FAILURE, PNEUMONIA Physical Exam Vital Signs: Temp Pulse Resp BP Pulse Ox 97.8 F 123 H 28 H 119/70 99 03/03/20 11:52 03/03/20 13:48 03/03/20 13:48 03/03/20 11:52 03/03/20 13:48 Intake & Output 03/02/20 03/03/20 03/04/20 06:59 06:59 06:59 Intake Total 2450 300 Output Total 1825 1600 Balance 625 -1300 Weight 76.2 kg 74.2 kg General appearance: PRESENT: cooperative, mild distress, well-developed Head exam: PRESENT: atraumatic, normocephalic Mouth exam: PRESENT: moist, tongue midline Respiratory exam: PRESENT: rales, symmetrical, tachypnea. ABSENT: prolonged expiratory phas, rhonchi, wheezes Cardiovascular exam: PRESENT: RRR, +S1, +S2. ABSENT: bradycardia, diastolic murmur, irregular rhythm, systolic murmur, tachycardia GI/Abdominal exam: PRESENT: normal bowel sounds, soft. ABSENT: distended, guarding, tenderness Rectal exam: PRESENT: deferred Extremities exam: ABSENT: pedal edema Neurological exam: PRESENT: alert, awake, oriented to person Psychiatric exam: PRESENT: anxious Results Laboratory Results: 03/03/20 06:30 03/03/20 08:38 03/03/20 03/03/20 06:30 08:38 WBC 4.4 RBC 3.17 L Hgb 10.0 L Hct 30.6 L MCV 97 MCH 31.6 MCHC 32.7 RDW 21.6 H Plt Count 157 Seg Neutrophils % 59.6 Sodium 136.3 L Potassium 3.7 Chloride 99 Carbon Dioxide 31 H Anion Gap 6 BUN 12 Creatinine 0.41 L Est GFR ( Amer) > 60 Glucose 87 Calcium 8.6 Magnesium 1.3 L 03/01/20 06:12 Nguyen Catheter Urine Culture - Final Escherichia Coli 03/01/20 05:59 Troponin I 0.013 NT-Pro-B Natriuret Pep 2780 H Impressions: Chest X-Ray 03/01/20 05:46 IMPRESSION: Worsening right lower lung opacity likely worsening pneumonia and small right pleural effusion. Assessment and Plan - Diagnosis (1) Pneumonia Qualifiers: Pneumonia type: due to unspecified organism Laterality: right Lung lo cation: lower lobe of lung Qualified Code(s): J18.9 - Pneumonia, unspecified organism Is this a current diagnosis for this admission?: Yes (2) UTI (urinary tract infection) Qualifiers: Urinary tract infection type: site unspecified Hematuria presence: without hematuria Qualified Code(s): N39.0 - Urinary tract infection, site not sp ecified Is this a current diagnosis for this admission?: Yes (3) Acute on chronic diastolic (congestive) heart failure Is this a current diagnosis for this admission?: Yes (4) Acute on chronic respiratory failure with hypoxia Is this a current diagnosis for this admission?: Yes (5) Chronic venous insufficiency of lower extremity Is this a current diagnosis for this admission?: Yes (6) Hypokalemia Is this a current diagnosis for this admission?: Yes (7) Hypomagnesemia Is this a current diagnosis for this admission?: Yes - Plan Summary Summary: Recent echocardiogram done revealed an ejection fraction of 60% with grade 2 diastolic dysfunction and right ventricular dilatation moderate pulmonary hypertension moderate tricuspid regurgitation. No need for repeat echo at this time. She appears to be euvolemic although her BNP is higher than her baseline at 2780 Thrombocytopenia has resolved so patient will be placed on prophylactic anticoagulant I have placed on ceftriaxone as well as Solu-Medrol and zinc oxide for tentative Covid diagnosis and this will need to be reevaluated once the result is available. I did speak with patient's spouse and updated him on patient's condition which is basically unchanged since admission at this morning. Patient's medications are not available for reconciliation but I have reviewed them and they will be continued once pharmacy is done the proper documentation 03/02/2020 Patient on BiPAP 16/8 30%. Reports that she feels a little better. Pneumonia-we will add doxycycline to the ceftriaxone. Acute on chronic diastolic heart failure-continue to monitor intake and output. Continue furosemide. Monitor electrolytes. Venous insufficiency-elevate legs when possible. Consider compression stockings. Acute on chronic respiratory failure-continue BiPAP with an effort to wean back towards room air. Respiratory failure is likely combination of heart failure and pneumonia. Urinary tract wwmtyvujd-soue-vkohpxft bacilli preliminary results from urine culture. Continue ceftriaxone. 03/03/2020 Patient was on a trial of nasal cannula. Got somewhat agitated. This might have been related to a dose of lorazepam. Patient going back on BiPAP at this point. Positive fluid balance up to this point. Will aim for neutral or negative fluid balance. Ceftriaxone for urinary tract infection Hypomagnesemia-magnesium is low today. Will supplement Hypokalemia-potassium was low but responded to supplement. Will monitor while on diuretics. - Time Time Spent with patient: 15-24 minutes Medications reviewed and adjusted accordingly: Yes Anticipated Discharge Disposition: Home with Home Health Anticipated Discharge Timeframe: Unknown
[2020-03-03] MEDS: LORAZEPAM INJ 2 MG/1 ML VIAL IV PRN (18:31)
[2020-03-03] MEDS: FLUTICASONE/UMECLIDIN/VILANTER 100-62.5-25 MCG/DOSE IH SCH (20:12)
[2020-03-04] MEDS: IPRATROPIUM/ALBUTEROL 0.5-2.5 MG/3 ML AMPUL NEB SCH ×4 (02:17→19:55)
[2020-03-04 07:12] LABS: ABSOLUTE LYMPHOCYTES (AUTO) 1.4 10^3/uL (0.5-4.7); ABSOLUTE MONOCYTES (AUTO) 0.4 10^3/uL (0.1-1.4); ABSOLUTE NEUT (AUTO) 2.3 10^3/uL (1.7-8.2); BASOPHILS % (AUTO) 0.3 % (0-2); EOSINOPHILS % (AUTO) 0.2 % (0-6); HEMATOCRIT 36.6 % (36.0-47.0); HEMOGLOBIN 11.9 g/dL (12.0-15.5); LYMPHOCYTES % (AUTO) 33.8 % (13-45); MEAN CORPUSCULAR HEMOGLOBIN 31.3 pg (27.0-33.4); MEAN CORPUSCULAR HGB CONC 32.5 g/dL (32.0-36.0); MEAN CORPUSCULAR VOLUME 96 fl (80-97); MONOCYTES % (AUTO) 10.1 % (3-13); PLATELET COUNT 143 10^3/uL (150-450); RED CELL DISTRIBUTION WIDTH 20.9 % (11.5-14.0); SEGMENTED NEUTROPHILS % (AUTO) 55.6 % (42-78); TOTAL CELLS COUNTED % (AUTO) 100 %; WHITE BLOOD COUNT 4.2 10^3/uL (4.0-10.5)
[2020-03-04 07:27] LABS: ANION GAP 8 (5-19); BLOOD UREA NITROGEN 12 mg/dL (7-20); CALCIUM 9.4 mg/dL (8.4-10.2); CARBON DIOXIDE 31 mmol/L (22-30); CHLORIDE 99 mmol/L (98-107); GLUCOSE 73 mg/dL (75-110); POTASSIUM 3.8 mmol/L (3.6-5.0)
[2020-03-04] MEDS: PANTOPRAZOLE SODIUM 40 MG TABLET.DR PO SCH (08:01)
[2020-03-04] MEDS: MAGNESIUM OXIDE 400 MG TABLET PO SCH ×3 (08:01→17:13)
--- NOTE | 2020-03-04 09:25 | PDOC PROGRESS REPORT ---
Subjective Date:: 03/04/20 Subjective:: Patient is sitting up eating breakfast. She is pleasantly confused. She is car rying on a conversation but it is not related to her hospitalization. It is as if she has been confused with someone else. She is on nasal cannula. She states that at home she is on nasal cannula intermittently and she thinks it is 2 L/min. Reason For Visit: ACUTE RESPIRATORY FAILURE, PNEUMONIA Physical Exam Vital Signs: Temp Pulse Resp BP Pulse Ox 97.8 F 111 H 20 116/75 99 03/04/20 09:08 03/04/20 08:22 03/04/20 08:22 03/04/20 03:17 03/04/20 08:22 Intake & Output 03/03/20 03/04/20 03/05/20 06:59 06:59 06:59 Intake Total 300 1760 Output Total 1600 750 Balance -1300 1010 Weight 74.2 kg 72.1 kg General appearance: PRESENT: no acute distress, cooperative, well-developed Head exam: PRESENT: atraumatic, normocephalic Eye exam: PRESENT: conjunctival injection, conjunctiva pink. ABSENT: scleral icterus Ear exam: PRESENT: normal external ear exam. ABSENT: bleeding, drainage Mouth exam: PRESENT: dry mucosa, tongue midline Neck exam: ABSENT: carotid bruit, JVD, lymphadenopathy Respiratory exam: PRESENT: rhonchi - Left upper lung field, symmetrical. ABSENT: accessory muscle use, chest wall tenderness, rales, tachypnea, wheezes Cardiovascular exam: PRESENT: RRR, +S1, +S2. ABSENT: bradycardia, diastolic murmur, irregular rhythm, systolic murmur, tachycardia GI/Abdominal exam: PRESENT: normal bowel sounds, soft. ABSENT: distended, tenderness Rectal exam: PRESENT: deferred Extremities exam: PRESENT: other - Ulcer on the dorsum of the right foot. ABSENT: pedal edema Musculoskeletal exam: PRESENT: normal inspection. ABSENT: deformity, disloca tion Neurological exam: PRESENT: alert, altered, awake, oriented to person Psychiatric exam: ABSENT: agitated, anxious Skin exam: PRESENT: other - On the dorsum of the right foot there is an ulcer with a dry fibrinous exudate on the bed that extends from approximately mid foot laterally to the margin of the foot. It is approximately 4 to 5 cm wide by 3 cm long. It is through the full-thickness of the skin. It was quite painful when I remove Results Laboratory Results: 03/04/20 05:58 03/04/20 05:58 03/03/20 03/04/20 03/04/20 08:38 05:58 05:58 WBC 4.2 RBC 3.80 Hgb 11.9 L Hct 36.6 MCV 96 MCH 31.3 MCHC 32.5 RDW 20.9 H Plt Count 143 L Seg Neutrophils % 55.6 Sodium 136.3 L 138.4 Potassium 3.7 3.8 Chloride 99 99 Carbon Dioxide 31 H 31 H Anion Gap 6 8 BUN 12 12 Creatinine 0.41 L 0.48 L Est GFR ( Amer) > 60 > 60 Glucose 87 73 L Calcium 8.6 9.4 Magnesium 1.3 L 1.4 L 03/01/20 06:12 Nguyen Catheter Urine Culture - Final Escherichia Coli 03/01/20 05:59 Troponin I 0.013 NT-Pro-B Natriuret Pep 2780 H Impressions: Chest X-Ray 03/01/20 05:46 IMPRESSION: Worsening right lower lung opacity likely worsening pneumonia and small right pleural effusion. Assessment and Plan - Diagnosis (1) Pneumonia Qualifiers: Pneumonia type: due to unspecified organism Laterality: right Lung location: lower lobe of lung Qualified Code(s): J18.9 - Pneumonia, unspecified organism Is this a current diagnosis for this admission?: Yes (2) UTI (urinary tract infection) Qualifiers: Urinary tract infection type: site unspecified Hematuria presence: without hematuria Qualified Code(s): N39.0 - Urinary tract infection, site not specified Is this a current diagnosis for this admission?: Yes (3) Acute on chronic diastolic (congestive) heart failure Is this a current diagnosis for this admission?: Yes (4) Acute on chronic respiratory failure with hypoxia Is this a current diagnosis for this admission?: Yes (5) Chronic venous insufficiency of lower extremity Is this a current diagnosis for this admission?: Yes (6) Hypokalemia Is this a current diagnosis for this admission?: Yes (7) Hypomagnesemia Is this a current diagnosis for this admission?: Yes (8) Ulcer of right foot with fat layer exposed Is this a current diagnosis for this admission?: Yes (9) Alcoholic encephalopathy Is this a current diagnosis for this admission?: Yes - Plan Summary Summary: Recent echocardiogram done revealed an ejection fraction of 60% with grade 2 diastolic dysfunction and right ventricular dilatation moderate pulmonary hype rtension moderate tricuspid regurgitation. No need for repeat echo at this time. She appears to be euvolemic although her BNP is higher than her baseline at 2780 Thrombocytopenia has resolved so patient will be placed on prophylactic anticoagulant I have placed on ceftriaxone as well as Solu-Medrol and zinc oxide for tentative Covid diagnosis and this will need to be reevaluated once the result is available. I did speak with patient's spouse and updated him on patient's condition which is basically unchanged since admission at this morning. Patient's medications are not available for reconciliation but I have reviewed them and they will be continued once pharmacy is done the proper documentation 03/02/2020 Patient on BiPAP 16/8 30%. Reports that she feels a little better. Pneumonia-we will add doxycycline to the ceftriaxone. Acute on chronic diastolic heart failure-continue to monitor intake and output. Continue furosemide. Monitor electrolytes. Venous insufficiency-elevate legs when possible. Consider compression stockings. Acute on chronic respiratory failure-continue BiPAP with an effort to wean back towards room air. Respiratory failure is likely combination of heart failure and pneumonia. Urinary tract hrnlyzomn-fksh-fetpypjr bacilli preliminary results from urine culture. Continue ceftriaxone. 03/03/2020 Patient was on a trial of nasal cannula. Got somewhat agitated. This might have been related to a dose of lorazepam. Patient going back on BiPAP at this point. Positive fluid balance up to this point. Will aim for neutral or negative fluid balance. Ceftriaxone for urinary tract infection Hypomagnesemia-magnesium is low today. Will supplement Hypokalemia-potassium was low but responded to supplement. Will monitor while on diuretics. 03/04/2020 Nasal cannula seems to be acceptable for most of the day. The patient reports that she does have oxygen at home. She thinks she is on 2 L nasal cannula. Continue ceftriaxone for E. coli urinary tract infection Continue magnesium supplement. Continue potassium supplement. Appreciate wound care's input. We will apply Santyl and moist saline gauze to the right foot ulcer. There is a history of alcoholism. I will add thiamine 100 mg daily. 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 I am discontinuing the steroids in the event that she c ould have adverse effects of the steroids but the history of alcoholism would seem to be a much more likely etiology. - Time Time Spent with patient: 15-24 minutes Medications reviewed and adjusted accordingly: Yes Anticipated Discharge Disposition: Home, Self Care Anticipated Discharge Timeframe: within 72 hours
[2020-03-04] MEDS: ENOXAPARIN SODIUM INJ 40 MG/0.4 ML DISP.SYRIN SUBCUT SCH (09:59)
[2020-03-04] MEDS: ZINC SULFATE 220 MG CAPSULE PO SCH (10:07)
[2020-03-04] MEDS: DOCUSATE SODIUM 100 MG CAPSULE PO SCH (10:07)
[2020-03-04] MEDS: NYSTATIN CREAM 15 GM TP SCH ×2 (10:08→17:14)
[2020-03-04] MEDS: POTASSIUM CHLORIDE 10 MEQ TABLET.ER PO SCH ×2 (10:08→22:05)
[2020-03-04] MEDS: HYDROXYZINE PAMOATE 50 MG CAPSULE PO SCH ×3 (10:08→20:49)
[2020-03-04] MEDS: FAMOTIDINE INJ/PF 20 MG/2 ML SDV IV SCH ×2 (10:09→22:05)
[2020-03-04] MEDS: CEFTRIAXONE 2 GM/D5W RTU 2 GM/50 ML RTUPB IV SCH (10:10)
[2020-03-04] MEDS: FUROSEMIDE INJ/PF 20 MG/2 ML SDV IV SCH (10:38)
[2020-03-04] MEDS: MIDODRINE HCL 5 MG TABLET PO SCH ×3 (10:39→17:14)
[2020-03-04] MEDS: LORAZEPAM INJ 2 MG/1 ML VIAL IV PRN (10:43)
[2020-03-04] MEDS: FLUTICASONE/UMECLIDIN/VILANTER 100-62.5-25 MCG/DOSE IH SCH (10:44)
[2020-03-04] MEDS: DOXYCYCLINE HYCLATE 100 MG in DEXTROSE 5%-WATER 250 ML IV SCH (18:37)
[2020-03-04] MEDS ORDERED: NICOTINE 21 MG/24 HR PATCH.TD24 TD PRN (22:13)
[2020-03-05] MEDS: IPRATROPIUM/ALBUTEROL 0.5-2.5 MG/3 ML AMPUL NEB SCH ×4 (01:25→20:56)
[2020-03-05] MEDS: LORAZEPAM INJ 2 MG/1 ML VIAL IV PRN (02:20)
[2020-03-05] MEDS: DOXYCYCLINE HYCLATE 100 MG in DEXTROSE 5%-WATER 250 ML IV SCH ×2 (06:26→17:28)
[2020-03-05] MEDS: ACETAMINOPHEN 325 MG TABLET PO PRN ×3 (09:24→23:08)
[2020-03-05] MEDS: THIAMINE HCL 100 MG TABLET PO SCH (09:25)
[2020-03-05] MEDS: POTASSIUM CHLORIDE 10 MEQ TABLET.ER PO SCH ×2 (09:25→22:52)
[2020-03-05] MEDS: DOCUSATE SODIUM 100 MG CAPSULE PO SCH (09:25)
[2020-03-05] MEDS: MAGNESIUM OXIDE 400 MG TABLET PO SCH ×3 (09:25→17:18)
[2020-03-05] MEDS: PANTOPRAZOLE SODIUM 40 MG TABLET.DR PO SCH (09:26)
[2020-03-05] MEDS: MIDODRINE HCL 5 MG TABLET PO SCH ×3 (09:26→17:29)
[2020-03-05] MEDS: ENOXAPARIN SODIUM INJ 40 MG/0.4 ML DISP.SYRIN SUBCUT SCH (09:26)
[2020-03-05] MEDS: CEFTRIAXONE 2 GM/D5W RTU 2 GM/50 ML RTUPB IV SCH (09:26)
[2020-03-05] MEDS: FAMOTIDINE INJ/PF 20 MG/2 ML SDV IV SCH ×2 (09:27→22:52)
[2020-03-05] MEDS: FUROSEMIDE INJ/PF 20 MG/2 ML SDV IV SCH (09:27)
[2020-03-05] MEDS: COLLAGENASE CLOSTRIDIUM HIST. OINT 30 GM TP SCH (09:28)
[2020-03-05] MEDS: NYSTATIN CREAM 15 GM TP SCH ×2 (09:28→17:26)
[2020-03-05] MEDS: HYDROXYZINE PAMOATE 50 MG CAPSULE PO SCH ×3 (09:30→17:26)
[2020-03-05] MEDS: ZINC SULFATE 220 MG CAPSULE PO SCH (09:30)
[2020-03-05] MEDS: FLUTICASONE/UMECLIDIN/VILANTER 100-62.5-25 MCG/DOSE IH SCH (09:31)
[2020-03-05] MEDS: MAGNESIUM SULFATE/D5W 1 GM/100 ML RTUPB IV SCH ×2 (15:04→17:15)
--- NOTE | 2020-03-05 15:25 | PDOC PROGRESS REPORT ---
Subjective Date:: 03/05/20 Subjective:: Patient was sleeping restlessly. The was at the bedside. I had a chance to have an in-depth discussion about the patient's status. Later in the afternoon I returned to see the patient. She is awake and eating dinner. Her main complaint is a sharp right pain under the right breast at the costal margin. It is worse when she moves or takes a deep breath. Reason For Visit: ACUTE RESPIRATORY FAILURE, PNEUMONIA Physical Exam Vital Signs: Temp Pulse Resp BP Pulse Ox 97.8 F 105 H 16 90/57 L 93 03/05/20 13:39 03/05/20 14:20 03/05/20 14:20 03/05/20 13:39 03/05/20 14:20 Intake & Output 03/04/20 03/05/20 03/06/20 06:59 06:59 06:59 Intake Total 1760 600 350 Output Total 750 2800 1700 Balance 1010 -2200 -1350 Weight 72.1 kg 67.1 kg General appearance: PRESENT: cooperative, mild distress, well-developed Head exam: PRESENT: atraumatic, normocephalic Respiratory exam: PRESENT: decreased breath sounds - Right base, symmetrical, unlabored, other - Limited inspiratory phase due to pain. ABSENT: rales, rhonchi, tachypnea, wheezes Cardiovascular exam: PRESENT: RRR, +S1, +S2. ABSENT: bradycardia, diastolic murmur, irregular rhythm, systolic murmur, tachycardia GI/Abdominal exam: PRESENT: normal bowel sounds, soft. ABSENT: distended, guarding, tenderness Rectal exam: PRESENT: deferred Extremities exam: ABSENT: pedal edema Neurological exam: PRESENT: alert, awake, oriented to person, oriented to place, oriented to situation Psychiatric exam: PRESENT: appropriate affect. ABSENT: agitated, anxious Focused psych exam: ABSENT: delusional, paranoid, restlessness Skin exam: PRESENT: other - Dressing over right foot ulcer Results Laboratory Results: 03/04/20 05:58 03/04/20 05:58 03/01/20 05:59 Troponin I 0.013 NT-Pro-B Natriuret Pep 2780 H Impressions: Chest X-Ray 03/01/20 05:46 IMPRESSION: Worsening right lower lung opacity likely worsening pneumonia and small right pleural effusion. Assessment and Plan - Diagnosis (1) Pneumonia Qualifiers: Pneumonia type: due to unspecified organism Laterality: right Lung location: lower lobe of lung Qualified Code(s): J18.9 - Pneumonia, unspecified organism Is this a current diagnosis for this admission?: Yes (2) UTI (urinary tract infection) Qualifiers: Urinary tract infection type: site unspecified Hematuria presence: without hematuria Qualified Code(s): N39.0 - Urinary tract infection, site not specified Is this a current diagnosis for this admission?: Yes (3) Acute on chronic diastolic (congestive) heart failure Is this a current diagnosis for this admission?: Yes (4) Acute on chronic respiratory failure with hypoxia Is this a current diagnosis for this admission?: Yes (5) Chronic venous insufficiency of lower extremity Is this a current diagnosis for this admission?: Yes (6) Hypokalemia Is this a current diagnosis for this admission?: Yes (7) Hypomagnesemia Is this a current diagnosis for this admission?: Yes (8) Ulcer of right foot with fat layer exposed Is this a current diagnosis for this admission?: Yes (9) Alcoholic encephalopathy Is this a current diagnosis for this admission?: Yes - Plan Summary Summary: Recent echocardiogram done revealed an ejection fraction of 60% with grade 2 diastolic dysfunction and right ventricular dilatation moderate pulmonary hypertension moderate tricuspid regurgitation. No need for repeat echo at this time. She appears to be euvolemic although her BNP is higher than her baseline at 2780 Thrombocytopenia has resolved so patient will be placed on prophylactic anticoagulant I have placed on ceftriaxone as well as Solu-Medrol and zinc oxide for tentative Covid diagnosis and this will need to be reevaluated once the result is available. I did speak with patient's spouse and updated him on patient's condition which is basically unchanged since admission at this morning. Patient's medications are not available for reconciliation but I have reviewed them and they will be continued once pharmacy is done the proper documentation 03/02/2020 Patient on BiPAP 16/8 30%. Reports that she feels a little better. Pneumonia-we will add doxycycline to the ceftriaxone. Acute on chronic diastolic heart failure-continue to monitor intake and output. Continue furosemide. Monitor electrolytes. Venous insufficiency-elevate legs when possible. Consider compression stockings. Acute on chronic respiratory failure-continue BiPAP with an effort to wean back towards room air. Respiratory failure is likely combination of heart failure and pneumonia. Urinary tract gtsruamun-czlr-izhvngcs bacilli preliminary results from urine culture. Continue ceftriaxone. 03/03/2020 Patient was on a trial of nasal cannula. Got somewhat agitated. This might have been related to a dose of lorazepam. Patient going back on BiPAP at this point. Positive fluid balance up to this point. Will aim for neutral or negative fluid balance. Ceftriaxone for urinary tract infection Hypomagnesemia-magnesium is low today. Will supplement Hypokalemia-potassium was low but responded to supplement. Will monitor while on diuretics. 03/04/2020 Nasal cannula seems to be acceptable for most of the day. The patient reports that she does have oxygen at home. She thinks she is on 2 L nasal cannula. Continue ceftriaxone for E. coli urinary tract infection Continue magnesium supplement. Continue potassium supplement. Appreciate wound care's input. We will apply Santyl and moist saline gauze to the right foot ulcer. There is a history of alcoholism. I will add thiamine 100 mg daily. 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 I am discontinuing the steroids in the event that she could have adverse effects of the steroids but the history of alcoholism would seem to be a much more likely etiology. 03/05/2020 Still on 5 L nasal cannula. The confirmed that she is supposed to wear oxygen all the time at home but she does not. The right sided discomfort could be due to her pneumonia. It could be musculoskeletal. We will recheck a chest x-ray as the infiltrate was in the right lower lobe. Continue antibiotics as ordered. Magnesium still slightly low and I increased the magnesium supplement. Continue wound care. She is now on thiamine. She does have a history of alcoholism. Her states that she is very strong-willed and does find a way to get alcohol. In addition the Vistaril could be causing some confusion at times. I did lower the dose to 25 mg. I will also consider changing it to as needed instead of scheduled. The states that he feels the patient is depressed. Her appetite has been poor. I will consider adding an SSRI to treat underlying possible depression as well as possibly stimulating her appetite. I will discuss this with the patient further. - Time Time Spent with patient: 25-34 minutes Medications reviewed and adjusted accordingly: Yes Anticipated Discharge Disposition: Home with Home Health Anticipated Discharge Timeframe: within 72 hours
[2020-03-05] MEDS ORDERED: NORMAL SALINE 1000 ML 1,000 ML IV ONE (16:35)
[2020-03-05] MEDS ORDERED: HYDROXYZINE PAMOATE 25 MG CAPSULE PO SCH (18:00)
[2020-03-05] MEDS ORDERED: GUAIFENESIN/D-METHORPHAN (200-20 MG) SYRUP 10 ML PO PRN (18:29)
[2020-03-05] MEDS ORDERED: HYDROXYZINE PAMOATE 25 MG CAPSULE PO PRN (18:30)
--- NOTE | 2020-03-05 18:36 | RADIOLOGY REPORT (SQ) ---
EXAM DESCRIPTION: CHEST SINGLE VIEW IMAGES COMPLETED DATE/TIME: 03/05/2020 6:24 pm REASON FOR STUDY: Increase shortness of breath COMPARISON: 03/01/2020 EXAM PARAMETERS: NUMBER OF VIEWS: One view. TECHNIQUE: Single frontal radiographic view of the chest acquired. RADIATION DOSE: NA LIMITATIONS: None. FINDINGS: LUNGS AND PLEURA: Parenchymal opacity at the right base with slight improvement. Minimal left basilar opacity. No pneumothorax. MEDIASTINUM AND HILAR STRUCTURES: No masses. Contour normal. HEART AND VASCULAR STRUCTURES: Heart enlarged. No overt failure. BONES: No acute findings. HARDWARE: Venous access catheter unchanged. OTHER: No other significant finding. IMPRESSION: Slight improved aeration of the right base. Minimal opacity at the left base. TECHNICAL DOCUMENTATION: JOB ID: [id number] 2010 [employer]- All Rights Reserved Reading location - IP/workstation name: [email or web address]
[2020-03-05] MEDS: GUAIFENESIN 600 MG TABLET.SA PO SCH (22:52)
[2020-03-05] MEDS: MORPHINE SULFATE 10 MG/ML INJ IV PRN (23:13)
[2020-03-06] MEDS: IPRATROPIUM/ALBUTEROL 0.5-2.5 MG/3 ML AMPUL NEB SCH ×4 (02:17→21:12)
[2020-03-06] MEDS: MORPHINE SULFATE 10 MG/ML INJ IV PRN ×2 (04:00→19:52)
[2020-03-06] MEDS: ACETAMINOPHEN 325 MG TABLET PO PRN ×3 (04:09→14:06)
[2020-03-06] MEDS: DOXYCYCLINE HYCLATE 100 MG in DEXTROSE 5%-WATER 250 ML IV SCH ×2 (06:48→17:38)
[2020-03-06] MEDS: PANTOPRAZOLE SODIUM 40 MG TABLET.DR PO SCH (08:52)
[2020-03-06] MEDS: MAGNESIUM OXIDE 400 MG TABLET PO SCH ×3 (08:52→17:37)
[2020-03-06] MEDS: POTASSIUM CHLORIDE 10 MEQ TABLET.ER PO SCH ×2 (09:46→21:24)
[2020-03-06] MEDS: MIDODRINE HCL 5 MG TABLET PO SCH ×3 (09:46→17:37)
[2020-03-06] MEDS: FAMOTIDINE INJ/PF 20 MG/2 ML SDV IV SCH ×2 (09:47→21:25)
[2020-03-06] MEDS: COLLAGENASE CLOSTRIDIUM HIST. OINT 30 GM TP SCH (09:47)
[2020-03-06] MEDS: THIAMINE HCL 100 MG TABLET PO SCH (09:47)
[2020-03-06] MEDS: GUAIFENESIN 600 MG TABLET.SA PO SCH ×2 (09:47→21:25)
[2020-03-06] MEDS: DOCUSATE SODIUM 100 MG CAPSULE PO SCH (09:47)
[2020-03-06] MEDS: NYSTATIN CREAM 15 GM TP SCH ×2 (09:48→17:38)
[2020-03-06] MEDS: FLUTICASONE/UMECLIDIN/VILANTER 100-62.5-25 MCG/DOSE IH SCH (09:48)
[2020-03-06] MEDS: ZINC SULFATE 220 MG CAPSULE PO SCH (09:48)
[2020-03-06] MEDS: CEFTRIAXONE 2 GM/D5W RTU 2 GM/50 ML RTUPB IV SCH (09:49)
[2020-03-06] MEDS: ENOXAPARIN SODIUM INJ 40 MG/0.4 ML DISP.SYRIN SUBCUT SCH (09:50)
--- NOTE | 2020-03-06 13:56 | PDOC PROGRESS REPORT ---
Subjective Date:: 03/06/20 Subjective:: Sitting up in the chair eating lunch. Appears to be quite comfortable. Reason For Visit: ACUTE RESPIRATORY FAILURE, PNEUMONIA Physical Exam Vital Signs: Temp Pulse Resp BP Pulse Ox 97.8 F 103 H 16 95/80 L 93 03/06/20 13:00 03/06/20 13:00 03/06/20 08:56 03/06/20 13:00 03/06/20 07:21 Intake & Output 03/05/20 03/06/20 03/07/20 06:59 06:59 06:59 Intake Total 600 1280 510 Output Total 2800 2875 500 Balance -2200 -1595 10 Weight 67.1 kg 68 kg General appearance: PRESENT: no acute distress, cooperative, well-developed Head exam: PRESENT: atraumatic, normocephalic Eye exam: PRESENT: conjunctiva pink. ABSENT: scleral icterus Ear exam: PRESENT: normal external ear exam. ABSENT: bleeding, drainage Mouth exam: PRESENT: moist, tongue midline Respiratory exam: PRESENT: decreased breath sounds - Patient reports discomfort taking a deep breath/slightly difficult to assess but no gross abnormal breath sounds, symmetrical, unlabored. ABSENT: rales, rhonchi, tachypnea, wheezes Cardiovascular exam: PRESENT: RRR, +S1, +S2. ABSENT: bradycardia, diastolic murmur, irregular rhythm, systolic murmur, tachycardia GI/Abdominal exam: PRESENT: normal bowel sounds, soft. ABSENT: distended, tenderness Rectal exam: PRESENT: deferred Gentrourinary exam: PRESENT: indwelling catheter Extremities exam: ABSENT: pedal edema Musculoskeletal exam: PRESENT: ambulatory - See physical therapy notes, normal inspection. ABSENT: deformity, dislocation Neurological exam: PRESENT: alert, awake, oriented to person. ABSENT: oriented to place, oriented to time, oriented to situation Psychiatric exam: PRESENT: appropriate affect. ABSENT: agitated, anxious Results Laboratory Results: 03/04/20 05:58 03/04/20 05:58 03/01/20 07:25 Blood Blood Culture - Final NO GROWTH IN 5 DAYS 03/01/20 05:59 Blood Blood Culture - Final NO GROWTH IN 5 DAYS 03/01/20 05:59 Troponin I 0.013 NT-Pro-B Natriuret Pep 2780 H Impressions: Chest X-Ray 03/05/20 00:00 IMPRESSION: Slight improved aeration of the right base. Minimal opacity at the left base. Assessment and Plan - Diagnosis (1) Pneumonia Qualifiers: Pneumonia type: due to unspecified organism Laterality: right Lung location: lower lobe of lung Qualified Code(s): J18.9 - Pneumonia, unspecified organism Is this a current diagnosis for this admission?: Yes (2) UTI (urinary tract infection) Qualifiers: Urinary tract infection type: site unspecified Hematuria presence: without hematuria Qualified Code(s): N39.0 - Urinary tract infection, site not specified Is this a current diagnosis for this admission?: Yes (3) Acute on chronic diastolic (congestive) heart failure Is this a current diagnosis for this admission?: Yes (4) Acute on chronic respiratory failure with hypoxia Is this a current diagnosis for this admission?: Yes (5) Chronic venous insufficiency of lower extremity Is this a current diagnosis for this admission?: Yes (6) Hypokalemia Is this a current diagnosis for this admission?: Yes (7) Hypomagnesemia Is this a current diagnosis for this admission?: Yes (8) Ulcer of right foot with fat layer exposed Is this a current diagnosis for this admission?: Yes (9) Alcoholic encephalopathy Is this a current diagnosis for this admission?: Yes - Plan Summary Summary: Recent echocardiogram done revealed an ejection fraction of 60% with grade 2 diastolic dysfunction and right ventricular dilatation moderate pulmonary hypertension moderate tricuspid regurgitation. No need for repeat echo at this time. She appears to be euvolemic although her BNP is higher than her baseline at 2780 Thrombocytopenia has resolved so patient will be placed on prophylactic anticoagulant I have placed on ceftriaxone as well as Solu-Medrol and zinc oxide for tentative Covid diagnosis and this will need to be reevaluated once the result is available. I did speak with patient's spouse and updated him on patient's condition which is basically unchanged since admission at this morning. Patient's medications are not available for reconciliation but I have reviewed them and they will be continued once pharmacy is done the proper documentation 03/02/2020 Patient on BiPAP 16/8 30%. Reports that she feels a little better. Pneumonia-we will add doxycycline to the ceftriaxone. Acute on chronic diastolic heart failure-continue to monitor intake and output. Continue furosemide. Monitor electrolytes. Venous insufficiency-elevate legs when possible. Consider compression stockings. Acute on chronic respiratory failure-continue BiPAP with an effort to wean back towards room air. Respiratory failure is likely combination of heart failure and pneumonia. Urinary tract vafwobdwc-mkiu-emktbhmm bacilli preliminary results from urine culture. Continue ceftriaxone. 03/03/2020 Patient was on a trial of nasal cannula. Got somewhat agitated. This might have been related to a dose of lorazepam. Patient going back on BiPAP at this point. Positive fluid balance up to this point. Will aim for neutral or negative fluid balance. Ceftriaxone for urinary tract infection Hypomagnesemia-magnesium is low today. Will supplement Hypokalemia-potassium was low but responded to supplement. Will monitor while on diuretics. 03/04/2020 Nasal cannula seems to be acceptable for most of the day. The patient reports that she does have oxygen at home. She thinks she is on 2 L nasal cannula. Continue ceftriaxone for E. coli urinary tract infection Continue magnesium supplement. Continue potassium supplement. Appreciate wound care's input. We will apply Santyl and moist saline gauze to the right foot ulcer. There is a history of alcoholism. I will add thiamine 100 mg daily. With the patient's history of alcoholism she is likely experiencing alcohol r elated encephalopathy. I am discontinuing the steroids in the event that she could have adverse effects of the steroids but the history of alcoholism would seem to be a much more likely etiology. 03/05/2020 Still on 5 L nasal cannula. The confirmed that she is supposed to wear oxygen all the time at home but she does not. The right sided discomfort could be due to her pneumonia. It could be musculoskeletal. We will recheck a chest x-ray as the infiltrate was in the right lower lobe. Continue antibiotics as ordered. Magnesium still slightly low and I increased the magnesium supplement. Continue wound care. She is now on thiamine. She does have a history of alcoholism. Her states that she is very strong-willed and does find a way to get alcohol. In addition the Vistaril could be causing some confusion at times. I did lower the dose to 25 mg. I will also consider changing it to as needed instead of scheduled. The states that he feels the patient is depressed. Her appetite has been poor. I will consider adding an SSRI to treat underlying possible depr ession as well as possibly stimulating her appetite. I will discuss this with the patient further. 03/06/2020 Likely alcohol encephalopathy. Patient had a reasonable conversation during my visit but when I told her I would see her tomorrow she stated that she would be in bed or in the kitchen. Then she said "I am so glad you are going to give me a bath ". When I discussed the patient with physical therapy they said she had episodes of difficulty focusing and maintaining train of thought. Completing antibiotics for her pneumonia. She states that it hurts to take a deep breath. Chest x-ray yesterday shows some improvement with the infiltrate in the right base. This is where her discomfort was focused. It is likely due to her pneumonia. I have ordered an incentive spirometer for her to use. Reviewing vital signs she shows occasional tachycardia. Blood pressure is variable but for the most part her map is above 65. Her balance seems to be poor. It is very possible that she has an alcohol related encephalopathy. She has been started on thiamine. As she has oxygen at home we will begin to work on disposition. - Time Time Spent with patient: Less than 15 minutes Medications reviewed and adjusted accordingly: Yes Anticipated Discharge Disposition: Home with Home Health - Home health versus short-term rehab Anticipated Discharge Timeframe: within 72 hours
[2020-03-06] MEDS: LORAZEPAM INJ 2 MG/1 ML VIAL IV PRN (21:25)
[2020-03-07] MEDS: MORPHINE SULFATE 10 MG/ML INJ IV PRN ×2 (02:31→11:50)
[2020-03-07] MEDS: IPRATROPIUM/ALBUTEROL 0.5-2.5 MG/3 ML AMPUL NEB SCH ×4 (02:50→21:02)
[2020-03-07 05:57] LABS: ABSOLUTE EOSINOPHILS # (AUTO) 0.1 10^3/uL (0.0-0.6); ABSOLUTE LYMPHOCYTES (AUTO) 1.9 10^3/uL (0.5-4.7); ABSOLUTE MONOCYTES (AUTO) 0.8 10^3/uL (0.1-1.4); ABSOLUTE NEUT (AUTO) 3.3 10^3/uL (1.7-8.2); BASOPHILS % (AUTO) 0.6 % (0-2); HEMATOCRIT 38.2 % (36.0-47.0); HEMOGLOBIN 12.6 g/dL (12.0-15.5); LYMPHOCYTES % (AUTO) 31.9 % (13-45); MEAN CORPUSCULAR HEMOGLOBIN 31.9 pg (27.0-33.4); MEAN CORPUSCULAR HGB CONC 33.1 g/dL (32.0-36.0); MEAN CORPUSCULAR VOLUME 97 fl (80-97); MONOCYTES % (AUTO) 12.7 % (3-13); PLATELET COUNT 187 10^3/uL (150-450); RED BLOOD COUNT 3.96 10^6/uL (3.72-5.28); RED CELL DISTRIBUTION WIDTH 19.8 % (11.5-14.0); SEGMENTED NEUTROPHILS % (AUTO) 53.8 % (42-78); TOTAL CELLS COUNTED % (AUTO) 100 %; WHITE BLOOD COUNT 6.1 10^3/uL (4.0-10.5)
[2020-03-07 06:08] LABS: ALKALINE PHOSPHATASE 169 U/L (38-126); ANION GAP 8 (5-19); ASPARTATE AMINO TRANSFERASE 33 U/L (14-36); BILIRUBIN,DIRECT 0.2 mg/dL (0.0-0.4); BILIRUBIN,TOTAL 0.6 mg/dL (0.2-1.3); BLOOD UREA NITROGEN 8 mg/dL (7-20); CALCIUM 9.7 mg/dL (8.4-10.2); CARBON DIOXIDE 26 mmol/L (22-30); CHLORIDE 100 mmol/L (98-107); GLUCOSE 85 mg/dL (75-110); POTASSIUM 4.8 mmol/L (3.6-5.0); TOTAL PROTEIN 7.4 g/dL (6.3-8.2)
[2020-03-07] MEDS: DOXYCYCLINE HYCLATE 100 MG in DEXTROSE 5%-WATER 250 ML IV SCH ×2 (06:38→18:47)
[2020-03-07] MEDS: ENOXAPARIN SODIUM INJ 40 MG/0.4 ML DISP.SYRIN SUBCUT SCH (09:29)
[2020-03-07] MEDS: FUROSEMIDE INJ/PF 20 MG/2 ML SDV IV SCH (09:29)
[2020-03-07] MEDS: FAMOTIDINE INJ/PF 20 MG/2 ML SDV IV SCH ×2 (09:30→21:19)
[2020-03-07] MEDS: PANTOPRAZOLE SODIUM 40 MG TABLET.DR PO SCH (09:31)
[2020-03-07] MEDS: MAGNESIUM OXIDE 400 MG TABLET PO SCH ×3 (09:32→17:57)
[2020-03-07] MEDS: DOCUSATE SODIUM 100 MG CAPSULE PO SCH ×2 (09:32→10:15)
[2020-03-07] MEDS: THIAMINE HCL 100 MG TABLET PO SCH (09:32)
[2020-03-07] MEDS: MIDODRINE HCL 5 MG TABLET PO SCH ×3 (09:32→18:17)
[2020-03-07] MEDS: GUAIFENESIN 600 MG TABLET.SA PO SCH ×2 (09:33→21:19)
[2020-03-07] MEDS: ACETAMINOPHEN 325 MG TABLET PO PRN (09:33)
[2020-03-07] MEDS: CEFTRIAXONE 2 GM/D5W RTU 2 GM/50 ML RTUPB IV SCH (09:34)
[2020-03-07] MEDS: POTASSIUM CHLORIDE 10 MEQ TABLET.ER PO SCH ×2 (10:12→21:19)
[2020-03-07] MEDS: ZINC SULFATE 220 MG CAPSULE PO SCH (10:13)
[2020-03-07] MEDS ORDERED: HALOPERIDOL LACTATE INJ 5 MG/1 ML VIAL IV ONE (12:45)
[2020-03-07] MEDS: FLUTICASONE/UMECLIDIN/VILANTER 100-62.5-25 MCG/DOSE IH SCH (12:48)
[2020-03-07] MEDS: NYSTATIN CREAM 15 GM TP SCH ×2 (13:08→19:03)
[2020-03-07] MEDS: COLLAGENASE CLOSTRIDIUM HIST. OINT 30 GM TP SCH (13:10)
[2020-03-07] MEDS ORDERED: LORAZEPAM INJ 2 MG/1 ML VIAL IV ONE (13:45)
--- NOTE | 2020-03-07 14:04 | PDOC PROGRESS REPORT ---
Subjective Date:: 03/07/20 Subjective:: The patient was quite agitated earlier today. Intravenous Haldol was ineffectiv e. Subsequent doses of intravenous lorazepam more effective. The patient is sleeping due to the medication. The agitation earlier I believe is related to her chronic alcohol use with subsequent chronic encephalopathy. Reason For Visit: ACUTE RESPIRATORY FAILURE, PNEUMONIA Physical Exam Vital Signs: Temp Pulse Resp BP Pulse Ox 97.8 F 115 H 18 92/60 L 96 03/07/20 13:17 03/07/20 13:17 03/07/20 12:50 03/07/20 13:17 03/07/20 13:17 Intake & Output 03/06/20 03/07/20 03/08/20 06:59 06:59 06:59 Intake Total 1280 1410 830 Output Total 2875 3300 1900 Balance -1595 -1890 -1070 Weight 68 kg 67.2 kg General appearance: PRESENT: other - Patient is medicated and sleeping. Head exam: PRESENT: atraumatic, normocephalic Respiratory exam: PRESENT: clear to auscultation javier - Anteriorly, symmetrical, unlabored. ABSENT: rales, rhonchi, tachypnea, wheezes Cardiovascular exam: PRESENT: RRR, +S1, +S2. ABSENT: bradycardia, diastolic murmur, irregular rhythm GI/Abdominal exam: PRESENT: normal bowel sounds, soft. ABSENT: distended, tenderness Rectal exam: PRESENT: deferred Gentrourinary exam: PRESENT: indwelling catheter Extremities exam: ABSENT: pedal edema Neurological exam: ABSENT: awake Skin exam: PRESENT: other - Dressing on the dorsum of her right foot skin ulcer Results Laboratory Results: 03/07/20 05:27 03/07/20 05:27 03/07/20 03/07/20 05:27 05:27 WBC 6.1 RBC 3.96 Hgb 12.6 Hct 38.2 MCV 97 MCH 31.9 MCHC 33.1 RDW 19.8 H Plt Count 187 Seg Neutrophils % 53.8 Sodium 134.3 L Potassium 4.8 Chloride 100 Carbon Dioxide 26 Anion Gap 8 BUN 8 Creatinine 0.55 Est GFR ( Amer) > 60 Glucose 85 Calcium 9.7 Magnesium 1.7 Total Bilirubin 0.6 AST 33 Alkaline Phosphatase 169 H Total Protein 7.4 Albumin 3.0 L 03/01/20 05:59 Troponin I 0.013 NT-Pro-B Natriuret Pep 2780 H Impressions: Chest X-Ray 03/05/20 00:00 IMPRESSION: Slight improved aeration of the right base. Minimal opacity at the left base. Assessment and Plan - Diagnosis (1) Pneumonia Qualifiers: Pneumonia type: due to unspecified organism Laterality: right Lung location: lower lobe of lung Qualified Code(s): J18.9 - Pneumonia, unspecified organism Is this a current diagnosis for this admission?: Yes (2) UTI (urinary tract infection) Qualifiers: Urinary tract infection type: site unspecified Hematuria presence: without hematuria Qualified Code(s): N39.0 - Urinary tract infection, site not specified Is this a current diagnosis for this admission?: Yes (3) Acute on chronic diastolic (congestive) heart failure Is this a current diagnosis for this admission?: Yes (4) Acute on chronic respiratory failure with hypoxia Is this a current diagnosis for this admission?: Yes (5) Chronic venous insufficiency of lower extremity Is this a current diagnosis for this admission?: Yes (6) Hypokalemia Is this a current diagnosis for this admission?: Yes (7) Hypomagnesemia Is this a current diagnosis for this admission?: Yes (8) Ulcer of right foot with fat layer exposed Is this a current diagnosis for this admission?: Yes (9) Alcoholic encephalopathy Is this a current diagnosis for this admission?: Yes - Plan Summary Summary: Recent echocardiogram done revealed an ejection fraction of 60% with grade 2 diastolic dysfunction and right ventricular dilatation moderate pulmonary hypertension moderate tricuspid regurgitation. No need for repeat echo at this time. She appears to be euvolemic although her BNP is higher than her baseline at 2780 Thrombocytopenia has resolved so patient will be placed on prophylactic anticoagulant I have placed on ceftriaxone as well as Solu-Medrol and zinc oxide for tentative Covid diagnosis and this will need to be reevaluated once the result is available. I did speak with patient's spouse and updated him on patient's condition which is basically unchanged since admission at this morning. Patient's medications are not available for reconciliation but I have reviewed them and they will be continued once pharmacy is done the proper documentation 03/02/2020 Patient on BiPAP 16/8 30%. Reports that she feels a little better. Pneumonia-we will add doxycycline to the ceftriaxone. Acute on chronic diastolic heart failure-continue to monitor intake and output. Continue furosemide. Monitor electrolytes. Venous insufficiency-elevate legs when possible. Consider compression stockings. Acute on chronic respiratory failure-continue BiPAP with an effort to wean back towards room air. Respiratory failure is likely combination of heart failure and pneumonia. Urinary tract skktkxgrf-yurb-ouahcfec bacilli preliminary results from urine culture. Continue ceftriaxone. 03/03/2020 Patient was on a trial of nasal cannula. Got somewhat agitated. This might have been related to a dose of lorazepam. Patient going back on BiPAP at this point. Positive fluid balance up to this point. Will aim for neutral or negative fluid balance. Ceftriaxone for urinary tract infection Hypomagnesemia-magnesium is low today. Will supplement Hypokalemia-potassium was low but responded to supplement. Will monitor while on diuretics. 03/04/2020 Nasal cannula seems to be acceptable for most of the day. The patient reports that she does have oxygen at home. She thinks she is on 2 L nasal cannula. Continue ceftriaxone for E. coli urinary tract infection Continue magnesium supplement. Continue potassium supplement. Appreciate wound care's input. We will apply Santyl and moist saline gauze to the right foot ulcer. There is a history of alcoholism. I will add thiamine 100 mg daily. 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 I am discontinuing the steroids in the event that she could have adverse effects of the steroids but the history of alcoholism would seem to be a much more likely etiology. 03/05/2020 Still on 5 L nasal cannula. The confirmed that she is supposed to wear oxygen all the time at home but she does not. The right sided discomfort could be due to her pneumonia. It could be musculoskeletal. We will recheck a chest x-ray as the infiltrate was in the right lower lobe. Continue antibiotics as ordered. Magnesium still slightly low and I increased the magnesium supplement. Continue wound care. She is now on thiamine. She does have a history of alcoholism. Her states that she is very strong-willed and does find a way to get alcohol. In addition the Vistaril could be causing some confusion at times. I did lower the dose to 25 mg. I will also consider changing it to as needed instead of scheduled. The states that he feels the patient is depressed. Her appetite has been poor. I will consider adding an SSRI to treat underlying possible depression as well as possibly stimulating her appetite. I will discuss this with the patient further. 03/06/2020 Likely alcohol encephalopathy. Patient had a reasonable conversation during my visit but when I told her I would see her tomorrow she stated that she would be in bed or in the kitchen. Then she said "I am so glad you are going to give me a bath ". When I discussed the patient with physical therapy they said she had episodes of difficulty focusing and maintaining train of thought. Completing antibiotics for her pneumonia. She states that it hurts to take a deep breath. Chest x-ray yesterday shows some improvement with the infiltrate in the right base. This is where her discomfort was focused. It is likely due to her pneumonia. I have ordered an incentive spirometer for her to use. Reviewing vital signs she shows occasional tachycardia. Blood pressure is variable but for the most part her map is above 65. Her balance seems to be poor. It is very possible that she has an alcohol related encephalopathy. She has been started on thiamine. As she has oxygen at home we will begin to work on disposition. 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 She is on thiamine however I do not know how reversible this will be. Because of her agitation I am going to start a trial dose of Risperdal 0.25 mg oral disintegrating tablet twice daily. Completing antibiotic therapy for pneumonia Vital signs still show intermittent mild tachycardia with borderline blood pressures. The patient has had a negative fluid balance consistently. I am going to decrease her furosemide. We may need to judiciously give intermittent IV fluids. Trying to encourage the patient to take in more fluids by mouth. Ambulation has been difficult. Her balance is likely off due to her history of alcoholism. We will need to discuss with her the possible need for at least short-term rehab. - Time Time Spent with patient: Less than 15 minutes Medications reviewed and adjusted accordingly: Yes Anticipated Discharge Disposition: Unknown Anticipated Discharge Timeframe: Unknown
[2020-03-08] MEDS: IPRATROPIUM/ALBUTEROL 0.5-2.5 MG/3 ML AMPUL NEB SCH ×4 (02:07→19:59)
[2020-03-08] MEDS: LORAZEPAM INJ 2 MG/1 ML VIAL IV PRN (02:26)
[2020-03-08] MEDS: MORPHINE SULFATE 10 MG/ML INJ IV PRN ×2 (02:26→06:42)
[2020-03-08] MEDS: DOXYCYCLINE HYCLATE 100 MG in DEXTROSE 5%-WATER 250 ML IV SCH ×2 (05:08→17:53)
[2020-03-08] MEDS: MAGNESIUM OXIDE 400 MG TABLET PO SCH ×3 (09:55→17:53)
[2020-03-08] MEDS: FUROSEMIDE 20 MG TABLET PO SCH (09:55)
[2020-03-08] MEDS: THIAMINE HCL 100 MG TABLET PO SCH (09:55)
[2020-03-08] MEDS: PANTOPRAZOLE SODIUM 40 MG TABLET.DR PO SCH (09:55)
[2020-03-08] MEDS: ZINC SULFATE 220 MG CAPSULE PO SCH (09:55)
[2020-03-08] MEDS: FAMOTIDINE INJ/PF 20 MG/2 ML SDV IV SCH ×2 (09:56→22:26)
[2020-03-08] MEDS: POTASSIUM CHLORIDE 10 MEQ TABLET.ER PO SCH ×2 (09:56→22:25)
[2020-03-08] MEDS: GUAIFENESIN 600 MG TABLET.SA PO SCH ×2 (09:56→22:25)
[2020-03-08] MEDS: DOCUSATE SODIUM 100 MG CAPSULE PO SCH (09:56)
[2020-03-08] MEDS: MIDODRINE HCL 5 MG TABLET PO SCH ×3 (09:56→17:53)
[2020-03-08] MEDS: NYSTATIN CREAM 15 GM TP SCH ×2 (09:57→17:54)
[2020-03-08] MEDS: CEFTRIAXONE 2 GM/D5W RTU 2 GM/50 ML RTUPB IV SCH (09:57)
[2020-03-08] MEDS: ENOXAPARIN SODIUM INJ 40 MG/0.4 ML DISP.SYRIN SUBCUT SCH (09:57)
[2020-03-08] MEDS: COLLAGENASE CLOSTRIDIUM HIST. OINT 30 GM TP SCH (09:58)
[2020-03-08] MEDS: FLUTICASONE/UMECLIDIN/VILANTER 100-62.5-25 MCG/DOSE IH SCH (09:58)
[2020-03-08 10:09] LABS: ARTERIAL BLOOD BASE EXCESS 0.9 mmol/L; ARTERIAL BLOOD HCO3 25.3 mmol/L (20-24); ARTERIAL BLOOD O2 SATURATION 94.4 % (94-98); ARTERIAL BLOOD PCO2 39.8 mmHg (35-45); ARTERIAL BLOOD PH 7.42 (7.35-7.45); ARTERIAL BLOOD PO2 69.9 mmHg (80-100); ARTERIAL BLOOD TOTAL CO2 26.5 mmol/L (21-25)
[2020-03-08 10:10] LABS: ARTERIAL BLOOD FIO2 36%
[2020-03-08] MEDS ORDERED: CHLORPHENIRAMINE PO PRN (11:11)
[2020-03-08] MEDS ORDERED: HYDROCODONE PO PRN (11:11)
--- NOTE | 2020-03-08 11:28 | PDOC PROGRESS REPORT ---
Subjective Date:: 03/08/20 Subjective:: The patient is a 59 year old female, well-known to the hospital service, with a past medical history significant for CHF, hypertension, PVD, COPD, chronic respiratory failure on home O2, GERD, arthritis, gout, depression, remote lung cancer (followed by Dr. Robertson), alcohol and tobacco dependence with continuous use who was admitted 03/01/2020 with Acute respiratory failure with hypoxia secondary to pneumonia. Due to patient's multiple recent admissions, she is treated for healthcare associated pneumonia. Unfortunately, patient has experienced severe delirium (multifactorial secondary to acute illness, hospitalization, and underlying chronic alcoholic encephalopathy) and physical debility. Patient was seen on morning rounds. Was found resting in bed, comfortably, on supplemental oxygen at 4 L/min. She is maintaining oxygen saturations in the low 90s. She does continue to have tachypnea and tachycardia, although, these are all improved over the course of her admission. At the time of my assessment, patient is oriented to self, place, situation, and the year 1919. She does quickly self-correct 2019. She tells me that she is " tired of the hospital revolving door." She is able to communicate to me that she feels that she is worsening and does not see that she is going to become well in the future. We did discuss palliative/hospice care. She states that she is interested in palliative but wishes to speak with her first. She is agreeable to consultation with discharge planning for further information. Otherwise, she reports continued fatigue and dyspnea while at rest. She has no other complaints at this time. She specifically denies fever, chest pain, palpitations, abdominal pain, nausea vomiting and diarrhea. She reports an overall poor appetite, although, was noted to be happily eating her breakfast. She has no other questions or concerns at this time. Reviewed plan of care with nursing. Reason For Visit: ACUTE RESPIRATORY FAILURE, PNEUMONIA Physical Exam Vital Signs: Temp Pulse Resp BP Pulse Ox 97.5 F 118 H 20 118/69 91 L 03/08/20 08:20 03/08/20 08:20 03/08/20 08:20 03/08/20 08:20 03/08/20 08:20 Intake & Output 03/07/20 03/08/20 03/09/20 06:59 06:59 06:59 Intake Total 1410 1562 250 Output Total 3300 3450 Balance -1890 -1888 250 Weight 67.2 kg 63.4 kg General appearance: PRESENT: no acute distress, cooperative, disheveled, thin - noted weight loss; ~45 kg/5 months., well-developed, well-nourished Head exam: PRESENT: atraumatic, normocephalic Eye exam: PRESENT: conjunctiva pink, EOMI, PERRLA. ABSENT: scleral icterus Mouth exam: PRESENT: moist, tongue midline Teeth exam: PRESENT: poor dentation Neck exam: ABSENT: carotid bruit, JVD, lymphadenopathy, thyromegaly Respiratory exam: PRESENT: prolonged expiratory phas, rhonchi, symmetrical, unlabored, other. ABSENT: rales, wheezes Cardiovascular exam: PRESENT: RRR, +S1, +S2, tachycardia. ABSENT: diastolic murmur, rubs, systolic murmur Pulses: PRESENT: normal dorsalis pedis pul Vascular exam: PRESENT: normal capillary refill Rectal exam: PRESENT: deferred Gentrourinary exam: PRESENT: indwelling catheter Extremities exam: PRESENT: full ROM, pedal edema. ABSENT: calf tenderness, clubbing Neurological exam: PRESENT: alert, awake, oriented to person, oriented to place, oriented to time - Reorientates quickly, oriented to situation, CN II-XII grossly intact. ABSENT: motor sensory deficit Psychiatric exam: PRESENT: appropriate affect, normal mood. ABSENT: homicidal ideation, suicidal ideation Skin exam: PRESENT: dry, intact, warm. ABSENT: cyanosis, rash Results Laboratory Results: 03/07/20 05:27 03/07/20 05:27 03/08/20 09:48 Carbonic Acid 1.20 HCO3/H2CO3 Ratio 21:1 ABG pH 7.42 ABG pCO2 39.8 ABG pO2 69.9 L ABG HCO3 25.3 H ABG O2 Saturation 94.4 ABG Base Excess 0.9 FiO2 36% 03/01/20 05:59 Troponin I 0.013 NT-Pro-B Natriuret Pep 2780 H Impressions: Chest X-Ray 03/05/20 00:00 IMPRESSION: Slight improved aeration of the right base. Minimal opacity at the left base. Assessment and Plan - Diagnosis (1) Alcoholic encephalopathy Is this a current diagnosis for this admission?: Yes Plan: Exacerbated secondary to acute illness, hospitalization, hypoxia. Continue daily multivitamin, thiamine, and folic acid supplementation. Start risperidone 0.25 mg p.o. twice daily. Continue Ativan as needed. Discharge planning consulted. Per previous provider, discussion with regarding likely chronic nature of the patient's encephalopathy. Patient is beginning to exceed the abilities of family to care for her home. She is now debilitated and requires moderate assist x2 for transfers. We will ask discharge planning to assist with SNF placement. (2) Pneumonia Qualifiers: Pneumonia type: due to unspecified organism Laterality: right Lung location: lower lobe of lung Qualified Code(s): J18.9 - Pneumonia, unspecified organism Is this a current diagnosis for this admission?: Yes Plan: Improved; leukocytosis is resolved. Patient is afebrile. However, she does continue to have periods of worsening hypoxia. CXR shows bibasilar opacities. ABG today improved. CTA chest pending 2/2 elevated d. dimer. Blood cultures no growth at 5 days. Patient is admitted IM on continuous cardiac telemetry and pulse oximetry. Has received ceftriaxone x7 days. Will discontinue. Currently on day #4/14 of doxycycline. Continue supplemental oxygen BiPAP as needed. Scheduled and as needed nebulizer treatments. Encourage pulmonary toilet with incentive spirometer, flutter valve, mobilization. (3) Acute on chronic diastolic (congestive) heart failure Is this a current diagnosis for this admission?: Yes Plan: Recent echocardiogram done revealed an ejection fraction of 60% with grade 2 diastolic dysfunction and right ventricular dilatation moderate pulmonary hypertension moderate tricuspid regurgitation. No need for repeat echo at this time. Acute exacerbation has been resolved. Patient continues on furosemide 20 mg daily potassium replacement; 40 mEq's twice daily. Cardiac diet; fluid restricted Daily weights, I&Os (4) UTI (urinary tract infection) Qualifiers: Urinary tract infection type: site unspecified Hematuria presence: without hematuria Qualified Code(s): N39.0 - Urinary tract infection, site not specified Is this a current diagnosis for this admission?: Yes Plan: Urinalysis reveals UTI. Urine culture demonstrated E. coli received a tract stone and doxycycline for treatment of healthcare associated pneumonia. Currently on day #7 of ceftriaxone; urinary tract infection has been adequately treated. We will ask nursing to remove Nguyen catheter. (5) Acute on chronic respiratory failure with hypoxia Is this a current diagnosis for this admission?: Yes Plan: Improved; secondary to healthcare associated pneumonia, acute on chronic CHF exacerbation, in the setting of COPD and remote lung cancer. D-dimer is elevated; CTA chest pending. Continue supplemental oxygen and BiPAP as needed to maintain saturations greater than 89%. Continue scheduled and as needed nebulizer treatments. Encourage pulmonary toilet with incentive spirometer, flutter valve, and p osition changing. (6) Chronic venous insufficiency of lower extremity Is this a current diagnosis for this admission?: Yes Plan: JOSELINE mendez. (7) Ulcer of right foot with fat layer exposed Is this a current diagnosis for this admission?: Yes Plan: Secondary to chronic venous insufficiency. (POA) followed by the [place] [facility]. No evidence of superimposed infectious process. Continue dressing changes per nursing protocols. (8) Alcohol dependency Qualifiers: Complication of substance-induced condition: with unspecified complication Is this a current diagnosis for this admission?: Yes Plan: Patient admits to heavy alcohol use. Her has endorsed alcohol dependency. Cessation encouraged. Continue daily multivitamin, thiamine, and folic acid supplementation. (9) Hypomagnesemia Is this a current diagnosis for this admission?: Yes Plan: Replete (10) Tobacco abuse Is this a current diagnosis for this admission?: Yes Plan: Smoking cessation encouraged. Nicotine replacement therapies provided. (11) Hypokalemia Is this a current diagnosis for this admission?: Yes Plan: Replete - Time Time Spent with patient: 35 or more minutes Medications reviewed and adjusted accordingly: Yes Anticipated Discharge Disposition: Senior Living Facility Anticipated Discharge Timeframe: within 72 hours
--- NOTE | 2020-03-08 11:32 | ADVANCED CARE ---
Attendance: The patient, Little Trejo, at bedside. Resuscitation Status: Full Code Discussion: Discussed patient's chronic medical conditions, recent admission, clinical course, and frequent hospitalizations over the last few months. Patient states that she feels like she is "tired of the hospital revolving door." She states that she is unsure what she would like for us to do should emergency occur requiring ventilatory support and or CPR. She does state that she is tired and not certain that she wants to continue coming back to the hospital for future care. When asked, patient states that she has not been educated on palliative care or hospice services. Did take time to describe both services to the patient. She is very receptive of the information. She states that she is inclined to [facility] care at this time, however, does want to speak with her about this. She is agreeable to discharge planning consultation for further education on services provided. Care Planning Goals: Patient is interested in learning about Palliative Care services. Discharge planning consulted. Time Spent: 20 min
[2020-03-08] MEDS ORDERED: SIMETHICONE 80 MG TAB.CHEW PO ONE (12:53)
[2020-03-08] MEDS ORDERED: SIMETHICONE 80 MG TAB.CHEW PO PRN (12:53)
[2020-03-08] MEDS: RISPERIDONE 0.5 MG TAB.RAPDIS PO SCH ×2 (13:27→17:54)
[2020-03-08] MEDS: GUAIFENESIN/CODEINE PHOS 100-10 MG/ 5 ML UDC PO PRN (13:28)
[2020-03-08] MEDS: BUPRENORPHINE HCL 2 MG SUBLINGUAL TABLET SL SCH (22:24)
[2020-03-09] MEDS: IPRATROPIUM/ALBUTEROL 0.5-2.5 MG/3 ML AMPUL NEB SCH ×4 (01:32→19:31)
[2020-03-09] MEDS: GUAIFENESIN/CODEINE PHOS 100-10 MG/ 5 ML UDC PO PRN (06:36)
[2020-03-09] MEDS: ACETAMINOPHEN 325 MG TABLET PO PRN ×3 (06:36→22:59)
[2020-03-09] MEDS ORDERED: DOXYCYCLINE HYCLATE INJ 100 MG VIAL ONE (06:54)
[2020-03-09] MEDS: DOXYCYCLINE HYCLATE 100 MG in DEXTROSE 5%-WATER 250 ML IV SCH ×2 (07:04→18:10)
[2020-03-09] MEDS: FAMOTIDINE INJ/PF 20 MG/2 ML SDV IV SCH ×2 (10:22→22:54)
[2020-03-09] MEDS: POTASSIUM CHLORIDE 10 MEQ TABLET.ER PO SCH (10:22)
[2020-03-09] MEDS: BUPRENORPHINE HCL 2 MG SUBLINGUAL TABLET SL SCH ×2 (10:23→22:54)
[2020-03-09] MEDS: THIAMINE HCL 100 MG TABLET PO SCH (10:23)
[2020-03-09] MEDS: FUROSEMIDE 20 MG TABLET PO SCH (10:23)
[2020-03-09] MEDS: GUAIFENESIN 600 MG TABLET.SA PO SCH ×2 (10:23→22:54)
[2020-03-09] MEDS: PANTOPRAZOLE SODIUM 40 MG TABLET.DR PO SCH (10:23)
[2020-03-09] MEDS: MIDODRINE HCL 5 MG TABLET PO SCH ×3 (10:23→17:57)
[2020-03-09] MEDS: DOCUSATE SODIUM 100 MG CAPSULE PO SCH (10:23)
[2020-03-09] MEDS: FOLIC ACID 1 MG TABLET PO SCH (10:23)
[2020-03-09] MEDS: MULTIVITAMIN TABLET PO SCH (10:23)
[2020-03-09] MEDS: MAGNESIUM OXIDE 400 MG TABLET PO SCH ×3 (10:24→17:57)
[2020-03-09] MEDS: NYSTATIN CREAM 15 GM TP SCH ×2 (10:24→18:09)
[2020-03-09] MEDS: ENOXAPARIN SODIUM INJ 40 MG/0.4 ML DISP.SYRIN SUBCUT SCH (10:25)
[2020-03-09] MEDS: ZINC SULFATE 220 MG CAPSULE PO SCH (10:26)
[2020-03-09] MEDS: RISPERIDONE 0.5 MG TAB.RAPDIS PO SCH ×2 (10:26→18:09)
[2020-03-09] MEDS: FLUTICASONE/UMECLIDIN/VILANTER 100-62.5-25 MCG/DOSE IH SCH (10:27)
[2020-03-09] MEDS: COLLAGENASE CLOSTRIDIUM HIST. OINT 30 GM TP SCH (10:27)
[2020-03-09] MEDS ORDERED: METOPROLOL TARTRATE PF/INJ 5 MG/5 ML SDV IV ONE (10:30)
--- NOTE | 2020-03-09 13:55 | PDOC PROGRESS REPORT ---
Subjective Date:: 03/09/20 Subjective:: The patient is a 59 year old female, well-known to the hospital service, with a past medical history significant for CHF, hypertension, PVD, COPD, chronic respiratory failure on home O2, GERD, arthritis, gout, depression, remote lung cancer (followed by Dr. Robertson), alcohol and tobacco dependence with continuous use who was admitted 03/01/2020 with Acute respiratory failure with hypoxia secondary to pneumonia. Due to patient's multiple recent admissions, she is treated for healthcare associated pneumonia. Unfortunately, patient has experienced severe delirium (multifactorial secondary to acute illness, hospitalization, and underlying chronic alcoholic encephalopathy) and physical debility. Patient was seen on morning rounds. Was found resting in bed, comfortably, on supplemental oxygen at 3 L/min. She is maintaining oxygen saturations in the low 90s. Tachypnea has resolved, speaking full sentences. She does continue to tachycardia. She is technically A&Ox3 today; though increased confusion today. She is conversational, socially appropriate, and able to follow directions. She denies fever, chest pain, palpitations, abdominal pain, nausea vomiting and diarrhea. She has no questions or concerns at this time. Reviewed plan of care with nursing. Reason For Visit: ACUTE RESPIRATORY FAILURE, PNEUMONIA Physical Exam Vital Signs: Temp Pulse Resp BP Pulse Ox 99.2 F 120 H 20 114/81 93 03/09/20 07:53 03/09/20 08:17 03/09/20 08:17 03/09/20 07:53 03/09/20 08:17 Intake & Output 03/08/20 03/09/20 03/10/20 06:59 06:59 06:59 Intake Total 1562 1257 250 Output Total 3450 900 Balance -1888 357 250 Weight 63.4 kg 62.3 kg General appearance: PRESENT: no acute distress, cooperative, disheveled, thin, well-developed, well-nourished Head exam: PRESENT: atraumatic, normocephalic Eye exam: PRESENT: conjunctiva pink, EOMI, PERRLA. ABSENT: scleral icterus Mouth exam: PRESENT: moist, tongue midline Respiratory exam: PRESENT: prolonged expiratory phas, rhonchi, symmetrical, unlabored, other - supplemental oxygen via NC. ABSENT: rales, wheezes Cardiovascular exam: PRESENT: RRR, tachycardia. ABSENT: diastolic murmur, rubs, systolic murmur Pulses: PRESENT: normal dorsalis pedis pul Vascular exam: PRESENT: normal capillary refill Extremities exam: PRESENT: full ROM. ABSENT: calf tenderness, clubbing, pedal edema Neurological exam: PRESENT: alert, awake, oriented to person, oriented to place, oriented to situation, CN II-XII grossly intact, other - Mild confusion; con versational, socially appropriate. ABSENT: motor sensory deficit Psychiatric exam: PRESENT: appropriate affect, normal mood. ABSENT: homicidal ideation, suicidal ideation Skin exam: PRESENT: dry, intact, warm. ABSENT: cyanosis, rash Results Laboratory Results: 03/07/20 05:27 03/07/20 05:27 03/01/20 05:59 Troponin I 0.013 NT-Pro-B Natriuret Pep 2780 H Impressions: Chest X-Ray 03/05/20 00:00 IMPRESSION: Slight improved aeration of the right base. Minimal opacity at the left base. Assessment and Plan - Diagnosis (1) SVT (supraventricular tachycardia) Is this a current diagnosis for this admission?: Yes Plan: Patient w/ multiple episodes of SVT over last 24 hr period. Overnight; patient w/ HR 160s x20 min; spontaneously resolved. This AM w/ HR 140-180s. Resolved following IV Lopressor 5 mg x1; now NSR w/ HR 80-09. BMP and Mag pending. Start Toprol 25 mg XL BID w/ holding parameters. Continue to monitor on telemetry. (2) Alcoholic encephalopathy Is this a current diagnosis for this admission?: Yes Plan: Increased confusion again overnight w/ repetative removal of bipap/oxygen. Out of restraints x24 hrs. Ativan x 1/24 hrs. Exacerbated secondary to acute illness, hospitalization, hypoxia. Continue daily multivitamin, thiamine, and folic acid supplementation. Start risperidone 0.25 mg p.o. twice daily. Continue Ativan as needed. Discharge planning consulted. Per previous provider, discussion with regarding likely chronic nature of the patient's encephalopathy. Patient is beginning to exceed the abilities of family to care for her home. She is now debilitated and requires moderate assist x2 for transfers. Discharge planning consulted. (3) Pneumonia Qualifiers: Pneumonia type: due to unspecified organism Laterality: right Lung location: lower lobe of lung Qualified Code(s): J18.9 - Pneumonia, unspecified organism Is this a current diagnosis for this admission?: Yes Plan: Improved; leukocytosis is resolved. Patient is afebrile. However, she does continue to have periods of worsening hypoxia. CXR shows bibasilar opacities. ABG today improved. CTA chest pending 2/2 elevated d. dimer. Blood cultures no growth at 5 days. Patient is admitted IM on continuous cardiac telemetry and pulse oximetry. Has received ceftriaxone x7 days. Will discontinue. Currently on day #5/14 of doxycycline. Continue supplemental oxygen BiPAP as needed. Scheduled and as needed nebulizer treatments. Encourage pulmonary toilet with incentive spirometer, flutter valve, mobilizatio n. (4) Acute on chronic diastolic (congestive) heart failure Is this a current diagnosis for this admission?: Yes Plan: Recent echocardiogram done revealed an ejection fraction of 60% with grade 2 diastolic dysfunction and right ventricular dilatation moderate pulmonary hypertension moderate tricuspid regurgitation. No need for repeat echo at this time. Acute exacerbation has been resolved. Patient continues on furosemide 20 mg daily with replacement potassium 40 mEq's twice daily. Cardiac diet; fluid restricted Daily weights, I&Os (5) UTI (urinary tract infection) Qualifiers: Urinary tract infection type: site unspecified Hematuria presence: without hematuria Qualified Code(s): N39.0 - Urinary tract infection, site not specified Is this a current diagnosis for this admission?: Yes Plan: Urinalysis reveals UTI. Urine culture demonstrated E. coli. Received ceftriaxone x7 days. (6) Acute on chronic respiratory failure with hypoxia Is this a current diagnosis for this admission?: Yes Plan: Improved; secondary to healthcare associated pneumonia, acute on chronic CHF exacerbation, in the setting of COPD and remote lung cancer. Now maintaining oxygen saturations on supplemental oxygen at 3lpm w/ BiPAP qHS. D-dimer is elevated; CTA chest pending. Discussed w/ nursing; please reattempt IV so patient may have exam (VQ scan will most certainly show abnormality and not be of benefit in determining if patient as an acute process). Continue supplemental oxygen and BiPAP as needed to maintain saturations greater than 89%. Continue scheduled and as needed nebulizer treatments. Encourage pulmonary toilet with incentive spirometer, flutter valve, and position changing. (7) Chronic venous insufficiency of lower extremity Is this a current diagnosis for this admission?: Yes Plan: JOSELINE mendez. (8) Ulcer of right foot with fat layer exposed Is this a current diagnosis for this admission?: Yes Plan: Secondary to chronic venous insufficiency. (POA) followed by the [place] [facility]. No evidence of superimposed infectious process. Continue dressing changes per nursing protocols. (9) Alcohol dependency Qualifiers: Complication of substance-induced condition: with unspecified complication Is this a current diagnosis for this admission?: Yes Plan: Patient admits to heavy alcohol use. Her has endorsed alcohol dependency. Cessation encouraged. Continue daily multivitamin, thiamine, and folic acid supplementation. (10) Hypomagnesemia Is this a current diagnosis for this admission?: Yes Plan: Replete (11) Tobacco abuse Is this a current diagnosis for this admission?: Yes Plan: Smoking cessation encouraged. Nicotine replacement therapies provided. (12) Hypokalemia Is this a current diagnosis for this admission?: Yes Plan: Replete - Time Time Spent with patient: 35 or more minutes Medications reviewed and adjusted accordingly: Yes Anticipated Discharge Disposition: Detention Facility Anticipated Discharge Timeframe: within 48 hours
[2020-03-09] MEDS: LORAZEPAM INJ 2 MG/1 ML VIAL IV PRN ×2 (14:16→23:16)
[2020-03-09 15:42] LABS: ANION GAP 8 (5-19); BLOOD UREA NITROGEN 20 mg/dL (7-20); CALCIUM 10.1 mg/dL (8.4-10.2); CARBON DIOXIDE 27 mmol/L (22-30); CHLORIDE 98 mmol/L (98-107); GLUCOSE 157 mg/dL (75-110)
[2020-03-09] MEDS ORDERED: SODIUM POLYSTYRENE SULFONATE 15 GM/60 ML PO ONE (16:26)
[2020-03-09] MEDS ORDERED: METOPROLOL SUCCINATE 25 MG TAB.SR.24H PO ONE (16:27)
[2020-03-09] MEDS ORDERED: MAGNESIUM SULFATE/D5W 1 GM/100 ML RTUPB IV ONE (17:00)
[2020-03-09] MEDS: METOPROLOL SUCCINATE 25 MG TAB.SR.24H PO SCH (22:54)
[2020-03-10] MEDS: IPRATROPIUM/ALBUTEROL 0.5-2.5 MG/3 ML AMPUL NEB SCH ×3 (02:30→13:34)
[2020-03-10] MEDS: DOXYCYCLINE HYCLATE 100 MG in DEXTROSE 5%-WATER 250 ML IV SCH (05:00)
[2020-03-10] MEDS: MAGNESIUM OXIDE 400 MG TABLET PO SCH ×2 (07:53→11:31)
[2020-03-10] MEDS: PANTOPRAZOLE SODIUM 40 MG TABLET.DR PO SCH (07:53)
[2020-03-10] MEDS: BUPRENORPHINE HCL 2 MG SUBLINGUAL TABLET SL SCH (09:46)
[2020-03-10] MEDS: ENOXAPARIN SODIUM INJ 40 MG/0.4 ML DISP.SYRIN SUBCUT SCH (09:46)
[2020-03-10] MEDS: METOPROLOL SUCCINATE 25 MG TAB.SR.24H PO SCH (09:47)
[2020-03-10] MEDS: MULTIVITAMIN TABLET PO SCH (09:47)
[2020-03-10] MEDS: DOCUSATE SODIUM 100 MG CAPSULE PO SCH (09:47)
[2020-03-10] MEDS: MIDODRINE HCL 5 MG TABLET PO SCH (09:47)
[2020-03-10] MEDS: GUAIFENESIN 600 MG TABLET.SA PO SCH (09:48)
[2020-03-10] MEDS: FOLIC ACID 1 MG TABLET PO SCH (09:48)
[2020-03-10] MEDS: FUROSEMIDE 20 MG TABLET PO SCH (09:48)
[2020-03-10] MEDS: THIAMINE HCL 100 MG TABLET PO SCH (09:48)
[2020-03-10] MEDS: FAMOTIDINE INJ/PF 20 MG/2 ML SDV IV SCH (09:48)
[2020-03-10] MEDS: RISPERIDONE 0.5 MG TAB.RAPDIS PO SCH (09:48)
[2020-03-10] MEDS: FLUTICASONE/UMECLIDIN/VILANTER 100-62.5-25 MCG/DOSE IH SCH (09:49)
[2020-03-10] MEDS: ZINC SULFATE 220 MG CAPSULE PO SCH (09:49)
[2020-03-10] MEDS ORDERED: METOPROLOL SUCCINATE 25 MG TAB.SR.24H PO ONE (11:30)
[2020-03-10 12:04] LABS: HEMATOCRIT 41.9 % (36.0-47.0); HEMOGLOBIN 13.8 g/dL (12.0-15.5); MEAN CORPUSCULAR HEMOGLOBIN 32.1 pg (27.0-33.4); MEAN CORPUSCULAR HGB CONC 32.9 g/dL (32.0-36.0); MEAN CORPUSCULAR VOLUME 98 fl (80-97); PLATELET COUNT 304 10^3/uL (150-450); RED CELL DISTRIBUTION WIDTH 18.3 % (11.5-14.0); WHITE BLOOD COUNT 8.4 10^3/uL (4.0-10.5)
[2020-03-10 12:21] LABS: ANION GAP 9 (5-19); BLOOD UREA NITROGEN 20 mg/dL (7-20); CARBON DIOXIDE 30 mmol/L (22-30); CHLORIDE 94 mmol/L (98-107); GLUCOSE 86 mg/dL (75-110)
[2020-03-10 12:26] LABS: POTASSIUM 4.8 mmol/L (3.6-5.0)
--- NOTE | 2020-03-10 13:17 | PDOC DISCHARGE SUMMARY ---
Impression - Admit/DC Date/PCP Admission Date/Primary Care Provider: 03/01/20 09:12 GALA ROBERTSON MD Discharge Date: 03/10/20 - Discharge Diagnosis (1) SVT (supraventricular tachycardia) Is this a current diagnosis for this admission?: Yes (2) Alcoholic encephalopathy Is this a current diagnosis for this admission?: Yes (3) Pneumonia Is this a current diagnosis for this admission?: Yes (4) Acute on chronic diastolic (congestive) heart failure Is this a current diagnosis for this admission?: Yes (5) UTI (urinary tract infection) Is this a current diagnosis for this admission?: Yes (6) Acute on chronic respiratory failure with hypoxia Is this a current diagnosis for this admission?: Yes (7) Chronic venous insufficiency of lower extremity Is this a current diagnosis for this admission?: Yes (8) Ulcer of right foot with fat layer exposed Is this a current diagnosis for this admission?: Yes (9) Alcohol dependency Is this a current diagnosis for this admission?: Yes (10) Hypomagnesemia Is this a current diagnosis for this admission?: Yes (11) Tobacco abuse Is this a current diagnosis for this admission?: Yes (12) Hypokalemia Is this a current diagnosis for this admission?: Yes - Additional Information Resuscitation Status: Full Code Discharge Diet: Cardiac Discharge Activity: Activity As Tolerated, Balance Activity w/Rest Referrals: GALA ROBERTSON MD [Primary Care Provider] - 03/11/20 3:45 pm Prescriptions: Folic Acid [Folvite 1 mg Tablet] 1 mg PO DAILY #90 tablet Magnesium Oxide [Mag-Ox 400 mg Tablet] 400 mg PO MEALS #90 tablet Nicotine [Nicoderm 21 mg/24 Hr Transderm Patch] 1 each TD DAILYP PRN #30 patch.td24 PRN Reason: Midodrine HCl [Proamatine 5 mg Tablet] 5 mg PO TID #90 tablet Risperidone [Risperdal M-Tab 0.5 mg Odt Tablet] 0.25 mg PO BID #60 tab.rapdis Multivitamin [Tab-A-Jhon (Multiple Vitamin) Tablet] 1 tab PO DAILY #90 tablet Thiamine HCl [Thiamine 100 mg Tablet] 100 mg PO DAILY #90 tablet Metoprolol Succinate [Toprol Xl 50 mg Tab.sr] 50 mg PO Q12 #60 tab.sr.24h Home Medications: Albuterol Sulfate [Albuterol Sulfate Hfa] 1 puff IH Q6HP PRN 09/04/19 Fluticasone/Umeclidin/Vilanter [Trelegy 100-62.5-25 Mcg Ellipta 14 Dose/Dpi] 1 puff IH DAILY 09/04/19 Tussionex 5 ml PO Q8HP PRN 09/04/19 Nystatin [Mycostatin Cream 15 gm] 1 applic TP BID 7 Days #1 tube 11/22/19 Hydroxyzine Pamoate [Vistaril 50 mg Capsule] 50 mg PO TID 12/26/19 Furosemide [Lasix 20 mg Tablet] 20 mg PO DAILYP PRN #30 tablet 12/31/19 Glucagon [Gvoke Hypopen 2-Pack] 1 mg SQ ASDIR PRN #1 auto.injct 02/08/20 Potassium Chloride [Klor-Con 10 Meq Tablet ER] 20 meq PO DAILY #60 tablet.er 02/08/20 Pantoprazole Sodium [Protonix [address] Tablet] 40 mg PO QAM 03/02/20 Acetaminophen [Tylenol 325 mg Tablet] 650 mg PO Q4HP PRN tablet 03/10/20 Buprenorphine HCl [Subutex 2 mg Sl Tablet] 6 mg SL Q12 tab.subl 03/10/20 Collagenase Clostridium Hist. [Santyl Ointment 30 gm] 1 applic TP DAILY tube 03/10/20 Docusate Sodium [Colace 100 mg Capsule] 100 mg PO DAILY capsule 03/10/20 Doxycycline Hyclate [Morgidox] 100 mg PO BID #16 capsule 03/10/20 Folic Acid [Folvite 1 mg Tablet] 1 mg PO DAILY #90 tablet 03/10/20 Furosemide [Lasix 20 mg Tablet] 20 mg PO DAILY tablet 03/10/20 Magnesium Oxide [Mag-Ox 400 mg Tablet] 400 mg PO MEALS #90 tablet 03/10/20 Metoprolol Succinate [Toprol Xl 50 mg Tab.sr] 50 mg PO Q12 #60 tab.sr.24h 03/10/20 Midodrine HCl [Proamatine 5 mg Tablet] 5 mg PO TID #90 tablet 03/10/20 Multivitamin [Tab-A-Jhon (Multiple Vitamin) Tablet] 1 tab PO DAILY #90 tablet 03/10/20 Nicotine [Nicoderm 21 mg/24 Hr Transderm Patch] 1 each TD DAILYP PRN #30 patch.td24 03/10/20 Risperidone [Risperdal M-Tab 0.5 mg Odt Tablet] 0.25 mg PO BID #60 tab.rapdis 03/10/20 Thiamine HCl [Thiamine 100 mg Tablet] 100 mg PO DAILY #90 tablet 03/10/20 History of Present Illiness History of Present Illness: Per H&P byDr. Chatterjee: DYLAN SWARTZ is a 59 year old female This patient presented to the emergency room with complaints of difficulty breathing and shortness of breath. Please note most of the information is obtained from the records as patient is unable to provide any history. Chest x- ray revealed worsening right lower lung opacity likely worsening pneumonia and small right pleural effusion. He does have a right IJ Port-A-Cath the SVC has cardiomegaly. EKG shows PVCs with sinus tachycardia. She has been admitted for pneumonia. She was just recently discharged on January 08 where she was treated for acute on chronic diastolic heart failure in addition to multiple other pathologies leading thrombocytopenia, history of stage III lung cancer for which she was supposed to follow-up with oncology, hypoglycemia and alcohol dependency, bilateral lower extremity cellulitis for which she was treated with Levaquin and Zyvox, chronic respiratory failure with hypercapnia Hospital Course Hospital Course: (1) SVT (supraventricular tachycardia) Resolved; primarily in NSR with occasional sinus tach (HR 110) w/ activity. Resolved following IV Lopressor 5 mg x1; now NSR w/ HR 80-90. Continue Toprol 50 mg XL BID; blood pressure is tolerating well. Outpatient follow up with Dr. Schultz; has previously been referred to cardiology for the same. (2) Alcoholic encephalopathy Intermittent confusion. Out of restraints >48 hrs. Exacerbated secondary to acute illness, hospitalization, hypoxia. Continue daily multivitamin, thiamine, and folic acid supplementation. Continue risperidone 0.25 mg p.o. twice daily. Discharge planning consulted; recommend home health services w/ palliative care consultation. (3) Pneumonia Significantly improved; leukocytosis is resolved. Patient is afebrile. No maintaining oxygen saturations while ambulatory on baseline supplemental oxygen. CXR shows bibasilar opacities. ABG improved. Blood cultures no growth at 5 days. Patient was admitted IM on continuous cardiac telemetry and pulse oximetry. Has received ceftriaxone x7 days. Currently on day #6/14 of doxycycline. Continue supplemental oxygen. Encourage pulmonary toilet with incentive spirometer, flutter valve, mobilization. (4) Acute on chronic diastolic (congestive) heart failure Acute exacerbation has resolved. Recent echocardiogram revealed an ejection fraction of 60% with grade 2 diastolic dysfunction and right ventricular dilatation moderate pulmonary hypertension moderate tricuspid regurgitation. No need for repeat echo at this time. Acute exacerbation has been resolved. Patient continues on furosemide 20 mg daily with replacement potassium 20 mEq's twice daily. Cardiac diet. Daily weights (5) UTI (urinary tract infection) Resolved. Urinalysis reveals UTI. Urine culture demonstrated E. coli. Received ceftriaxone x7 days. (6) Acute on chronic respiratory failure with hypoxia Acute exacerbation has resolved; patient is now maintaining appropriate oxygen saturations while ambulating in her room. Lung sounds are clear and she denies symptoms. Continue home supplemental O2. Encourage pulmonary toilet with incentive spirometer, flutter valve, and position changing. Outpatient follow-up with established rn support services at earliest available appointment. (7) Chronic venous insufficiency of lower extremity JOSELINE hose. (8) Ulcer of right foot with fat layer exposed Secondary to chronic venous insufficiency. (POA) followed by the [place] [facility]; follow-up as previously scheduled. No evidence of superimposed infectious process. Continue dressing changes per nursing protocols. (9) Alcohol dependency Patient admits to heavy alcohol use. Her has endorsed alcohol dependency. Cessation encouraged. Continue daily multivitamin, thiamine, and folic acid supplementation. (10) Hypomagnesemia Replete (11) Tobacco abuse Smoking cessation encouraged. Nicotine replacement therapies provided. (12) Hypokalemia Replete Physical Exam Vital Signs: Temp Pulse Resp BP Pulse Ox 98.3 F 115 H 16 117/77 99 03/10/20 10:00 03/10/20 08:34 03/10/20 08:34 03/10/20 08:15 03/10/20 08:34 Intake & Output 03/09/20 03/10/20 03/11/20 06:59 06:59 06:59 Intake Total 1257 1336 250 Output Total 900 Balance 357 1336 250 Weight 62.3 kg 62.9 kg General appearance: PRESENT: no acute distress, cooperative, thin, well- developed, well-nourished Head exam: PRESENT: atraumatic, normocephalic Eye exam: PRESENT: conjunctiva pink, EOMI, PERRLA. ABSENT: scleral icterus Mouth exam: PRESENT: moist, tongue midline Teeth exam: PRESENT: poor dentation Respiratory exam: PRESENT: clear to auscultation javier, rhonchi - scant bibasilar, symmetrical, unlabored, other - baseline oxygen. ABSENT: rales, wheezes Cardiovascular exam: PRESENT: RRR. ABSENT: diastolic murmur, rubs, systolic murmur Pulses: PRESENT: normal dorsalis pedis pul Vascular exam: PRESENT: normal capillary refill GI/Abdominal exam: PRESENT: normal bowel sounds, soft. ABSENT: distended, guarding, mass, organolmegaly, rebound, tenderness Rectal exam: PRESENT: deferred Gentrourinary exam: ABSENT: indwelling catheter Extremities exam: PRESENT: full ROM. ABSENT: calf tenderness, clubbing, pedal edema Musculoskeletal exam: PRESENT: ambulatory Neurological exam: PRESENT: alert, awake, oriented to person, oriented to place, oriented to situation, CN II-XII grossly intact, other - intermittent confusion; conversational and socially appropriate. ABSENT: motor sensory deficit Psychiatric exam: PRESENT: appropriate affect, normal mood. ABSENT: homicidal ideation, suicidal ideation Skin exam: PRESENT: dry, intact, warm. ABSENT: cyanosis, rash Results Laboratory Results: WBC 8.4 10^3/uL (4.0-10.5) 03/10/20 11:24 RBC 4.30 10^6/uL (3.72-5.28) 03/10/20 11:24 Hgb 13.8 g/dL (12.0-15.5) 03/10/20 11:24 Hct 41.9 % (36.0-47.0) 03/10/20 11:24 MCV 98 fl (80-97) H 03/10/20 11:24 MCH 32.1 pg (27.0-33.4) 03/10/20 11:24 MCHC 32.9 g/dL (32.0-36.0) 03/10/20 11:24 RDW 18.3 % (11.5-14.0) H 03/10/20 11:24 Plt Count 304 10^3/uL (150-450) 03/10/20 11:24 Lymph % (Auto) 31.9 % (13-45) 03/07/20 05:27 Mckinley % (Auto) 12.7 % (3-13) 03/07/20 05:27 Eos % (Auto) 1.0 % (0-6) 03/07/20 05:27 Baso % (Auto) 0.6 % (0-2) 03/07/20 05:27 Absolute Neuts (auto) 3.3 10^3/uL (1.7-8.2) 03/07/20 05:27 Absolute Lymphs (auto) 1.9 10^3/uL (0.5-4.7) 03/07/20 05:27 Absolute Monos (auto) 0.8 10^3/uL (0.1-1.4) 03/07/20 05:27 Absolute Eos (auto) 0.1 10^3/uL (0.0-0.6) 03/07/20 05:27 Absolute Basos (auto) 0.0 10^3/uL (0.0-0.2) 03/07/20 05:27 Total Counted 100 03/01/20 05:59 Seg Neutrophils % 53.8 % (42-78) 03/07/20 05:27 Seg Neuts % (Manual) 94 % (42-78) H 03/01/20 05:59 Lymphocytes % (Manual) 3 % (13-45) L 03/01/20 05:59 Monocytes % (Manual) 3 % (3-13) 03/01/20 05:59 Eosinophils % (Manual) 0 % (0-6) 03/01/20 05:59 Basophils % (Manual) 0 % (0-2) 03/01/20 05:59 Abs Neuts (Manual) 10.2 10^3/uL (1.7-8.2) H 03/01/20 05:59 Abs Lymphs (Manual) 0.3 10^3/uL (0.5-4.7) L 03/01/20 05:59 Abs Monocytes (Manual) 0.3 10^3/uL (0.1-1.4) 03/01/20 05:59 Absolute Eos (Manual) 0.0 10^3/uL (0.0-0.6) 03/01/20 05:59 Abs Basophils (Manual) 0.0 10^3/uL (0.0-0.2) 03/01/20 05:59 Platelet Comment ADEQUATE 03/01/20 05:59 Polychromasia 1+ 03/01/20 05:59 Poikilocytosis 1+ 03/01/20 05:59 Anisocytosis 3+ 03/01/20 05:59 Target Cells 1+ 03/01/20 05:59 Caprice Cells 1+ 03/01/20 05:59 PT 14.6 SEC (11.4-15.4) 03/01/20 05:59 INR 1.12 03/01/20 05:59 D-Dimer 3.75 ug/mL (0.00-0.50) H 03/07/20 05:27 Carbonic Acid 1.20 mmol/L (1.05-1.35) 03/08/20 09:48 HCO3/H2CO3 Ratio 21:1 03/08/20 09:48 ABG pH 7.42 (7.35-7.45) 03/08/20 09:48 ABG pCO2 39.8 mmHg (35-45) 03/08/20 09:48 ABG pO2 69.9 mmHg (80-100) L 03/08/20 09:48 ABG HCO3 25.3 mmol/L (20-24) H 03/08/20 09:48 ABG Total CO2 26.5 mmol/L (21-25) H 03/08/20 09:48 ABG O2 Saturation 94.4 % (94-98) 03/08/20 09:48 ABG Base Excess 0.9 mmol/L 03/08/20 09:48 FiO2 36% 03/08/20 09:48 Sodium 133.0 mmol/L (137-145) L 03/10/20 11:24 Potassium 4.8 mmol/L (3.6-5.0) D 03/10/20 11:24 Chloride 94 mmol/L (98-107) L 03/10/20 11:24 Carbon Dioxide 30 mmol/L (22-30) 03/10/20 11:24 Anion Gap 9 (5-19) 03/10/20 11:24 BUN 20 mg/dL (7-20) 03/10/20 11:24 Creatinine 0.62 mg/dL (0.52-1.25) 03/10/20 11:24 Est GFR ( Amer) > 60 (>60) 03/10/20 11:24 Est GFR (MDRD) Non-Af > 60 (>60) 03/10/20 11:24 Glucose 86 mg/dL (75-110) 03/10/20 11:24 POC Glucose 114 mg/dL (70-110) H 03/08/20 16:22 Lactic Acid 1.2 mmol/L (0.7-2.1) 03/01/20 05:59 Calcium 10.0 mg/dL (8.4-10.2) 03/10/20 11:24 Magnesium 1.5 mg/dL (1.6-2.3) L 03/09/20 15:11 Total Bilirubin 0.6 mg/dL (0.2-1.3) 03/07/20 05:27 Direct Bilirubin 0.2 mg/dL (0.0-0.4) 03/07/20 05:27 Neonat Total Bilirubin Not Reportable 03/07/20 05:27 Neonat Direct Bilirubin Not Reportable 03/07/20 05:27 Neonat Indirect Bili Not Reportable 03/07/20 05:27 AST 33 U/L (14-36) 03/07/20 05:27 ALT 10 U/L (<35) 03/07/20 05:27 Alkaline Phosphatase 169 U/L (38-126) H 03/07/20 05:27 Troponin I 0.013 ng/mL 03/01/20 05:59 NT-Pro-B Natriuret Pep 2780 pg/mL (<125) H 03/01/20 05:59 Total Protein 7.4 g/dL (6.3-8.2) 03/07/20 05:27 Albumin 3.0 g/dL (3.5-5.0) L 03/07/20 05:27 Urine Color YELLOW 03/01/20 06:12 Urine Appearance CLEAR 03/01/20 06:12 Urine pH 5.0 (5.0-9.0) 03/01/20 06:12 Ur Specific [place] 1.011 03/01/20 06:12 Urine Protein NEGATIVE mg/dL (NEGATIVE) 03/01/20 06:12 Urine Glucose (UA) NEGATIVE mg/dL (NEGATIVE) 03/01/20 06:12 Urine Ketones 20 mg/dL (NEGATIVE) H 03/01/20 06:12 Urine Blood NEGATIVE (NEGATIVE) 03/01/20 06:12 Urine Nitrite NEGATIVE (NEGATIVE) 03/01/20 06:12 Urine Bilirubin NEGATIVE (NEGATIVE) 03/01/20 06:12 Urine Urobilinogen 2.0 mg/dL (<2.0) H 03/01/20 06:12 Ur Leukocyte Esterase SMALL (NEGATIVE) H 03/01/20 06:12 Urine WBC (Auto) 25 /HPF 03/01/20 06:12 Urine RBC (Auto) 1 /HPF 03/01/20 06:12 U Hyaline Cast (Auto) 2 /LPF 03/01/20 06:12 Urine Bacteria (Auto) TRACE /HPF 03/01/20 06:12 Squamous Epi Cells Auto 1 /HPF 03/01/20 06:12 Urine Mucus (Auto) RARE /LPF 03/01/20 06:12 Urine Ascorbic Acid NEGATIVE (NEGATIVE) 03/01/20 06:12 Urine Opiates Screen NEGATIVE 03/01/20 06:12 Urine Methadone Screen NEGATIVE 03/01/20 06:12 Ur Barbiturates Screen NEGATIVE 03/01/20 06:12 Ur Phencyclidine Scrn NEGATIVE 03/01/20 06:12 Ur Amphetamines Screen NEGATIVE 03/01/20 06:12 U Benzodiazepines Scrn UNCONFIRMED POSITIVE 03/01/20 06:12 Urine Cocaine Screen NEGATIVE 03/01/20 06:12 U Marijuana (THC) Screen NEGATIVE 03/01/20 06:12 Serum Alcohol < 10 mg/dL (NONE DETECTED) 03/01/20 05:59 COVID-19 Source See comment 03/01/20 06:36 COVID-19 ([facility]) Not Detected (Not Detect) 03/01/20 06:36 Influenza A (RT-PCR) NEGATIVE (NEGATIVE) 03/01/20 11:00 Influenza B (RT-PCR) NEGATIVE (NEGATIVE) 03/01/20 11:00 RSV (RT-PCR) NEGATIVE (NEGATIVE) 03/01/20 11:00 SARS-CoV-2 Rap RNA(RT-PCR) NEGATIVE (NEGATIVE) 03/01/20 11:00 03/01/20 05:59 Troponin I 0.013 NT-Pro-B Natriuret Pep 2780 H Impressions: Chest X-Ray 03/01/20 05:46 IMPRESSION: Worsening right lower lung opacity likely worsening pneumonia and small right pleural effusion. Chest X-Ray 03/05/20 00:00 IMPRESSION: Slight improved aeration of the right base. Minimal opacity at the left base. Plan Plan of Treatment: The patient is discharged home, in stable condition, on her baseline oxygen requirement. Arrangements are being made for her to receive home health services with palliative care consultation. Recommend that she follow-up with her primary care provider within 1 week. Follow-up with Dr. Robertson as scheduled. Follow-up with Dr. Davis at the earliest available appointment. Follow-up with Dr. Catlaan/Nathan at the earliest available appointment. Take medications as prescribed. Strongly encouraged continued smoking and alcohol cessation. Return to the emergency department, as needed, for concerning symptoms. Time Spent: Greater than 30 Minutes Stroke Is this a Stroke Patient?: No Acute Heart Failure Is this a Heart Failure Patient?: Yes Documentation of LVEF assessment?: Yes LVEF: LVEF Greater Than 40% Anticoagulant Therapy: N/A Discharged on Evidence-Based Beta Blockers: Yes Discharged on ARNI?: No-Document Contraindications Reason(s) not discharged on ARNI: Hypotension, Other ARNI Reason - Other: cost prohibitive Discharged on ARB?: No-document contraindications Reason(s) not Discharged on ARB: Hyperkalemia, Hypotenson Discharged on ACEI?: No, document contraindications Reason(s) not Discharged on ACEI: Hyperkalemia, Hypotension For LVEF <35%, discharged on Aldosterone Antagonist?: N/A (LVEF > or = 35%) Follow-up Appointment scheduled within 7 days?: Yes
[2020-03-10 16:10] VITALS: BP 94/80
[2020-03-10] MEDS ORDERED: METOPROLOL SUCCINATE 50 MG TAB.SR.24H PO SCH (22:00)
== END 2020-03-10 16:32 | disposition home or self-care (01) | DRG 193 ==
LOC: ER 05:35 → EH 09:12 → 3S 15:51 → 4S 03-08 19:07
PROVIDERS: ADMIT Internal Medicine; ATTEND Registered Nurse
PROC: 5A09357 Assistance with Respiratory Ventilation, Less than 24 Consecutive Hours, Continuous Positive Airway Pressure (ICD-10-PCS; principal; 2020-03-01)
DX: J18.9 Pneumonia, unspecified organism (principal); J96.21 Acute and chronic respiratory failure with hypoxia; I50.33 Acute on chronic diastolic (congestive) heart failure; N39.0 Urinary tract infection, site not specified; I47.1 Supraventricular tachycardia; L03.116 Cellulitis of left lower limb; L03.115 Cellulitis of right lower limb; C34.90 Malignant neoplasm of unspecified part of unspecified bronchus or lung; L97.412 Non-pressure chronic ulcer of right heel and midfoot with fat layer exposed; J45.909 Unspecified asthma, uncomplicated; G47.30 Sleep apnea, unspecified; K21.9 Gastro-esophageal reflux disease without esophagitis; I11.0 Hypertensive heart disease with heart failure; F32.9 Major depressive disorder, single episode, unspecified; I73.9 Peripheral vascular disease, unspecified; F10.20 Alcohol dependence, uncomplicated; E16.2 Hypoglycemia, unspecified; G31.2 Degeneration of nervous system due to alcohol; I87.2 Venous insufficiency (chronic) (peripheral); E83.42 Hypomagnesemia; E87.6 Hypokalemia; M10.9 Gout, unspecified; Z72.0 Tobacco use; Z88.6 Allergy status to analgesic agent; Z88.0 Allergy status to penicillin; Z99.81 Dependence on supplemental oxygen; Z20.828 Contact with and (suspected) exposure to other viral communicable diseases
CPT/HCPCS: 36415; 36591; 36600; 51702; 71045; 80048; 80053; 80307; 81001; 82803; 82962; 83605; 83735; 83880; 84484; 85025; 85027; 85379; 85610; 87040; 87086; 87088; 87186; 87635; 93005; 93010; 94660; 94667; 94668; 94799; 96365; 96375; 99291; 0241U; C9803; J0571; J0696; J1630; J1642; J1650; J1940; J1956; J2060; J2270; J2310; J2920; J3475; J3480; J3490; J7030; J7060; S0028

== ENCOUNTER 2020-03-24 19:57 | Inpatient (IN) | payer OTHER ==
[~2020-03-24 19:57] MED LIST: EPINEPHRINE INJ 1 MG/10 ML DISP.SYRIN ONE; SODIUM BICARBONATE 8.4% INJ 50 MEQ/50 ML DISP.SYRIN ONE
--- NOTE | 2020-03-24 20:10 | ER Document Report ---
ED General - General Chief Complaint: Altered Mental Status Stated Complaint: ALTERED MENTAL STATUS Time Seen by Provider: 03/24/20 20:07 Primary Care Provider: GALA FINNEY MD [Primary Care Provider] - Follow up as needed TRAVEL OUTSIDE OF THE [place] IN LAST 30 DAYS: No - HPI Notes: 59-year-old female arrives from home via EMS for altered mental status. Per EMS report they were called to the house for concerns for hypoxia. On arrival they found her altered, only responsive to pain and overall confused. States that her oxygen saturations were 96-99% on her usual home O2. However they applied a nonrebreather on her which she fought and did not tolerate, therefore they administered 5mg IM Versed so that they "could intervene and put her on the monitor". She had sinus bradycardia in route, no reported hypotension. She has a history of COPD, CHF and lung cancer. She had a negative rapid Covid swab. Patient is obtunded and unable to participate in exam. - Related Data Allergies/Adverse Reactions: aspirin [Aspirin] Allergy (Verified 10/06/18 17:54) NSAIDS (Non-Steroidal Anti-Inflamma [Nsaids] Allergy (Verified 10/06/18 17:54) Penicillins Allergy (Verified 10/06/18 17:54) Past Medical History - General Information source: Emergency Med Personnel - Social History Smoking Status: Current Every Day Smoker Family History: CAD, Malignancy - Past Medical History Cardiac Medical History: Reports: Hx Congestive Heart Failure, Hx Hypertension, Hx Peripheral Vascular Disease Denies: Hx Atrial Fibrillation, Hx Coronary Artery Disease, Hx DVT, Hx Heart Attack, Hx Hypercholesterolemia, Hx Pulmonary Embolism Pulmonary Medical History: Reports: Hx Asthma, Hx Bronchitis, Hx COPD, Hx Pneumonia, Hx Respiratory Failure - Chronic on home O2, Hx Sleep Apnea Neurological Medical History: Denies: Hx Cerebrovascular Accident, Hx Seizures Endocrine Medical History: Denies: Hx Diabetes Mellitus Type 1, Hx Diabetes Mellitus Type 2, Hx Hyperthyroidism, Hx Hypothyroidism Renal/ Medical History: Denies: Hx Peritoneal Dialysis Malignancy Medical History: Reports: Hx Lung Cancer GI Medical History: Reports: Hx Gastroesophageal Reflux Disease. Denies: Hx Cirrhosis, Hx Hepatitis Musculoskeletal Medical History: Reports Hx Arthritis, Denies Hx Fibromyalgia, Reports Hx Gout Skin Medical History: Denies Hx Eczema, Denies Hx Psoriasis Psychiatric Medical History: Reports: Hx Depression Infectious Medical History: Denies: Hx Hepatitis Past Surgical History: Reports: Hx Tubal Ligation, Other - Unilateral salpingectomy, colonoscopy - Immunizations Hx Diphtheria, Pertussis, Tetanus Vaccination: Yes Review of Systems - Review of Systems -: Yes ROS unobtainable due to patient's medical condition Physical Exam - Vital signs Vitals: Resp 24 H 03/24/20 19:57 - General General appearance: Other - Obtunded In distress: None - HEENT Head: Normocephalic, Atraumatic Conjunctiva: No: Icteric, Injected Pupils: PERRL Mucous membranes: Moist - Respiratory Respiratory status: No respiratory distress. No: Labored, Tachypnea Breath sounds: Rhonchi - Bilaterally - Cardiovascular Rhythm: Bradycardia Pulses: Normal: Radial, Dorsalis pedis Normal capillary refill: Yes - Abdominal Tenderness: Other - Soft - Extremities General lower extremity: Edema Foot: Other - Chronic appearing ulceration to dorsum of right foot - Neurological Nilda Coma Scale Eye Opening: To Pain Nilda Coma Scale Verbal: None Nilda Coma Scale Motor: Localizes to Pain Nilda Coma Scale Total: 8 Notes: Noted to move all extremities in response to pain. No gross facial asymmetry. Patient does not participate and unable to obtain a full/dedicated neuro exam - Psychological Associated symptoms: Other - Unable to assess - Skin Skin Temperature: Cool Skin Moisture: Dry Course - Re-evaluation Re-evalutation: 59-year-old female history COPD, CHF and lung cancer here with altered mental status from home. On arrival patient is obviously obtunded, she is spontaneou sly breathing, she localizes the pain and overall GCS 8. Her pupils are equal and reactive. She does spontaneously move all of her extremities. Unfortunately EMS gave 5 mg IM Versed, unsure of exact reasoning, therefore unable to fully assess mental status and how much of the Versed is playing in to it. Patient is notably hypothermic, bradycardic and hypotensive. Heart rate is in the 50s and is fairly regular. EKG is without ST segment elevation. Will start with fluid resuscitation. Concern for possible infectious etiology such as pneumonia or UTI. Patient has had multiple hospital admissions recently for respiratory failure/pneumonia, although her EMS antigen chest was negative for Covid, will obtain a full respiratory panel as she would be at risk for Covid exposure given her recent hospitalizations. Will CT head to rule out bleed or other obvious intracranial abnormality. Check CXR. Full laboratory evaluation. 03/24/20 21:39 Into reassess patient, she is somnolent, she awakens to painful stimuli then falls back asleep. Her blood pressure has improved. Reviewed blood pressures from previous admission, looks like she typically does actually run low and she has been prescribed midodrine. Given that her lactic acid is 1.3, she is perfusing with this blood pressure. Still unclear at this time as she is still under the effects of the Versed 03/24/20 22:07 2L of LR have finished. Remains hypotensive. Bedside ultrasound performed which shows a plump IVC. Given that she remains hypotensive and bradycardic, question if she is a beta-maggy overdose as she has metoprolol listed in her med list, and is relatively hypoglycemic, current glucose 79 but typically runs much higher. Will start with Levophed, will consider high-dose insulin infusion depending on response to therapy 03/24/20 22:28 Discussed with patient's . 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 Apparently EMS came out checked her vitals which were reportedly normal, general i farmworker was told that there were no signs of stroke and she was not transported to the emergency department. states that he was told that patient pretty much was sleeping the entire day. He got home from work around 4 PM and she was sleeping. He had her son come check on her. And then had her daughter come check on her, who is a [employer]. Apparently her oxygen saturations were 70 to 80% so 911 was called again. Patient's states that when EMS arrived for the second time today she did talk to her husba nd however she really did not talk much, she overall seemed dazed, but did recognize him. I discussed with if there is a possibility that patient might have taken more medications than was prescribed to her. He states that he has "had that exact same thought", when he found out that she was sleeping all day he thought to himself "what has she taken?" and is concerned that she took something that he does not know about. He states that "she has a habit of taking stuff that she is not supposed to". "She does what she wants and gets people to take her stuff". States that "she loves wine" and continues to smoke despite her doctors asking her to quit. He also states that yesterday he found 3 pills on the floor of her bedroom, when he confronted her about it she said that she had accidentally spilled her usual medications. I updated him on current care plan and condition. If an acute CVA did occur today, unfortunately she would be outside of the TPA window, and is unclear at this time if CVA is the driving process. Patient is a full code. Also gave contact number for daughter, Antonette Evans [phone] 03/24/20 22:45 No leukocytosis or left shift. Chronic anemia. Mild hyponatremia, do not expect this to be the ultimate cause of her altered mental status, she has rec eived intravenous fluids. Potassium mild elevation at 5.6, no hyperacute T waves. Elevated creatinine, HENRY present. Mag and Phos elevated. No elevation of CK. BNP elevated, appears to be around her baseline with associated slight troponin leak. Slight elevation of TSH however T4 within normal limits. Slight respiratory acidosis present with pH 7.24 and pCO2 52, however she has had multiple values similar to this recently. EtOH negative. UDS positive for opiates. No UTI. Chest x-ray is without consolidation. CT head is without acute process, has old infarcts. 03/24/20 22:53 Blood pressure has responded to Levophed, currently on 3mcg/min. Heart rate has somewhat improved, now in the mid 50s as opposed to low 50s, hold on high-dose insulin therapy given she has had a positive response to pressors 03/24/20 23:06 Patient to be admitted to the ICU. Temperature has increased to 94F. Patient did sit up in bed and cough, however still obtunded and does not follow commands - Vital Signs Vital signs: Temp Pulse Resp BP Pulse Ox 21 H 76/56 L 94 03/24/20 23:26 03/24/20 23:26 03/24/20 23:26 - Laboratory Results Result Diagrams: 03/24/20 20:10 12 20:10 Laboratory Results Interpreted: 03/24/20 03/24/20 03/24/20 20:10 20:10 20:10 RBC 3.35 L Hgb 10.8 L Hct 33.4 L MCV 100 H RDW 19.4 H Carbonic Acid ABG pH ABG pCO2 Sodium 130.6 L Potassium 5.6 H BUN 52 H Creatinine 1.62 H Est GFR ( Amer) 39 L Est GFR (MDRD) Non-Af 33 L Phosphorus 7.6 H Magnesium 3.6 H Alkaline Phosphatase 155 H C-Reactive Protein 61.5 H NT-Pro-B Natriuret Pep 2480 H Albumin 3.2 L TSH 03/24/20 03/24/20 20:10 21:10 RBC Hgb Hct MCV RDW Carbonic Acid 1.56 H ABG pH 7.24 L ABG pCO2 51.7 H Sodium Potassium BUN Creatinine Est GFR ( Amer) Est GFR (MDRD) Non-Af Phosphorus Magnesium Alkaline Phosphatase C-Reactive Protein NT-Pro-B Natriuret Pep Albumin TSH 4.77 H Critical Laboratory Results Reviewed: No Critical Results - Radiology Results Critical Radiology Results Reviewed: No Critical Results - EKG Interpretation by Me Additional EKG results interpreted by me: EKG is interpreted by me. Sinus bradycardia, rate 55. Widened QRS 116, IVCD. QTc 494. There is low voltage throughout all the leads. No gross ST segment elevation. Nonspecific ST changes. EKG is changed from previous. Critical Care Note - Critical Care Note Total time excluding time spent on procedures (mins): 80 - Patient has condition that is acutely life-threatening. Critical care time related to direct patient care with multiple reassessments, discussion with family members and coordina tion of care with ICU, initiation of vasoactive medication Discharge - Discharge Clinical Impression: Shock, Obtunded, HENRY (acute kidney injury) Disposition: ADMITTED INPATIENT Unit Admitted: ICU Referrals: GALA FINNEY MD [Primary Care Provider] - Follow up as needed
[2020-03-24] MEDS ORDERED: RINGERS SOLUTION,LACTATED 1,000 ML IV ONE ×2 (20:22→20:58)
[2020-03-24 20:38] LABS: ABSOLUTE EOSINOPHILS # (AUTO) 0.1 10^3/uL (0.0-0.6); ABSOLUTE LYMPHOCYTES (AUTO) 0.7 10^3/uL (0.5-4.7); ABSOLUTE MONOCYTES (AUTO) 0.5 10^3/uL (0.1-1.4); ABSOLUTE NEUT (AUTO) 3.7 10^3/uL (1.7-8.2); BASOPHILS % (AUTO) 0.3 % (0-2); EOSINOPHILS % (AUTO) 1.9 % (0-6); HEMATOCRIT 33.4 % (36.0-47.0); HEMOGLOBIN 10.8 g/dL (12.0-15.5); LYMPHOCYTES % (AUTO) 14.1 % (13-45); MEAN CORPUSCULAR HEMOGLOBIN 32.3 pg (27.0-33.4); MEAN CORPUSCULAR HGB CONC 32.4 g/dL (32.0-36.0); MEAN CORPUSCULAR VOLUME 100 fl (80-97); MONOCYTES % (AUTO) 9.7 % (3-13); PLATELET COUNT 175 10^3/uL (150-450); RED BLOOD COUNT 3.35 10^6/uL (3.72-5.28); RED CELL DISTRIBUTION WIDTH 19.4 % (11.5-14.0); TOTAL CELLS COUNTED % (AUTO) 100 %; WHITE BLOOD COUNT 4.9 10^3/uL (4.0-10.5)
--- NOTE | 2020-03-24 20:57 | RADIOLOGY REPORT (SQ) ---
EXAM DESCRIPTION: CHEST SINGLE VIEW 03/24/2020 8:08 PM [employer] CLINICAL HISTORY: 59 years Female, consolidation; ; COMPARISON: Prior study from 03/05/2020 FINDINGS: Right IJ approach central venous port catheter appears to loop about the rightward aspect of the neck with tip located in the upper SVC, unchanged from the previous exam. Cardiopericardial silhouette is enlarged, also similar to the prior. Pre-existing right basilar airspace disease appears improved from the previous examination dated 03/05/2020. Left lung is overall clear. Tubing projects over the upper midabdomen/right upper quadrant. No pneumothorax or large pleural effusion. IMPRESSION: Improved aeration of the right lung base. Overall, the lungs appear clear. Stable cardiomegaly.
--- NOTE | 2020-03-24 21:06 | RADIOLOGY REPORT (SQ) ---
EXAM: CT HEAD WITHOUT CLINICAL INDICATION: 59-year-old female with altered mental status. COMPARISON: 03/24/2020. TECHNIQUE: CT brain without contrast. This exam was performed according to our departmental dose optimization program which includes use of automated exposure control, adjustment of the mA and/or kV according to patient size and/or use of iterative reconstruction technique. FINDINGS: Mild foci of patchy hypoattenuation are present in a subcortical and periventricular deep white matter distribution, nonspecific; however, most likely represent small vessel ischemic disease, age indeterminate. Wedge-shaped focus of hypoattenuation present at the level of the inferior LEFT cerebellum, smaller on the RIGHT compatible with sequela of prior infarction. The ventricles, sulci, and sulci are slightly prominent, stable in comparison to the previous examination.. The feng-white matter differentiation is preserved. There is no mass effect, midline shift, intra- or extra-axial fluid collection/acute hemorrhage. The osseous structures are unremarkable. The paranasal sinuses reveal air-fluid level within a near completely opacified RIGHT maxillary sinus, with mild secretions and mucosal thickening affecting the LEFT maxillary sinus, bilateral sphenoid sinus, anterior posterior ethmoid air cells suggesting acute on chronic sinus disease. Sclerosis and wall thickening of the visualized bony structures of the sinuses. Not aerated bilateral frontal sinus. The bilateral mastoid air cells are clear. IMPRESSION: 1. No acute intracranial abnormalities. Nonspecific, mild white matter change most likely small vessel ischemic disease, age indeterminate. 2. CT is insensitive for early evaluation of acute stroke. If there is clinical concern for acute ischemia, an MRI may be considered. 3. Suspected acute on chronic sinus disease.
[2020-03-24 21:10] LABS: ALBUMIN 3.2 g/dL (3.5-5.0); ALKALINE PHOSPHATASE 155 U/L (38-126); ANION GAP 6 (5-19); ASPARTATE AMINO TRANSFERASE 27 U/L (14-36); BILIRUBIN,DIRECT 0.3 mg/dL (0.0-0.4); BILIRUBIN,TOTAL 0.4 mg/dL (0.2-1.3); BLOOD UREA NITROGEN 52 mg/dL (7-20); C-REACTIVE PROTEIN 61.5 mg/L (<10.0); CALCIUM 9.2 mg/dL (8.4-10.2); CARBON DIOXIDE 24 mmol/L (22-30); CHLORIDE 101 mmol/L (98-107); GLUCOSE 79 mg/dL (75-110); PHOSPHORUS 7.6 mg/dL (2.5-4.5); POTASSIUM 5.6 mmol/L (3.6-5.0); TOTAL PROTEIN 7.3 g/dL (6.3-8.2)
[2020-03-24 21:11] LABS: ALCOHOL < 10 mg/dL (NONE DETECTED)
[2020-03-24 21:15] LABS: TROPONIN I 0.097 ng/mL
[2020-03-24 21:18] LABS: FREE T4 (FREE THYROXINE) 1.09 ng/dL (0.78-2.19)
[2020-03-24 21:28] LABS: APPEARANCE,URINE SLIGHTLY-CLOUDY; BILIRUBIN,URINE NEGATIVE (NEGATIVE); COLOR,URINE YELLOW; GLUCOSE, URINE NEGATIVE (NEGATIVE); KETONES,URINE NEGATIVE (NEGATIVE); LEUKOCYTE ESTERASE,URINE NEGATIVE (NEGATIVE); NITRITE,URINE NEGATIVE (NEGATIVE); PROTEIN,URINE NEGATIVE (NEGATIVE); URINE SPECIFIC GRAVITY 1.019; UROBILINOGEN,URINE NEGATIVE mg/dL (<2.0)
[2020-03-24 21:28] LABS: ARTERIAL BLOOD H2CO3 1.56 mmol/L (1.05-1.35); ARTERIAL BLOOD HCO3 21.5 mmol/L (20-24); ARTERIAL BLOOD O2 SATURATION 94.5 % (94-98); ARTERIAL BLOOD PCO2 51.7 mmHg (35-45); ARTERIAL BLOOD PH 7.24 (7.35-7.45); ARTERIAL BLOOD PO2 84.5 mmHg (80-100)
[2020-03-24 21:31] LABS: ARTERIAL BLOOD FIO2 36%
[2020-03-24 21:32] LABS: THYROID STIMULATING HORMONE 4.77 uIU/mL (0.47-4.68)
[2020-03-24 21:43] LABS: URINE AMPHETAMINES SCREEN NEGATIVE; URINE BARBITURATES SCREEN NEGATIVE; URINE BENZODIAZEPINES SCREEN NEGATIVE; URINE COCAINE SCREEN NEGATIVE; URINE MARIJUANA (THC) SCREEN NEGATIVE; URINE METHADONE SCREEN NEGATIVE; URINE PHENCYCLIDINE SCREEN NEGATIVE
[2020-03-24] MEDS ORDERED: NOREPINEPHRINE BITARTRATE INJ/PF 4 MG/4 ML SDV IV ONE (22:08)
[2020-03-24] MEDS: DEXTROSE 5%-WATER 250 ML with NOREPINEPHRINE BITARTRATE 4 MG IV PRN ×2 (22:17)
[2020-03-25] MEDS: HEPARIN SOD (PORCINE) 5,000 UNIT/ML 1 ML VIAL SUBCUT SCH ×4 (01:19→22:21)
[2020-03-25] MEDS: PANTOPRAZOLE SODIUM 40 MG VIAL IV SCH ×3 (01:20→22:21)
[2020-03-25] MEDS: DEXTROSE 5%-1/2 NORMAL SALINE 1,000 ML IV PRN ×2 (01:38→10:48)
--- NOTE | 2020-03-25 02:00 | EKG REPORT ---
SEVERITY:- ABNORMAL ECG - SINUS BRADYCADIA NONSPECIFIC INTRAVENTRICULAR CONDUCTION DELAY LOW VOLTAGE THROUGHOUT : Confirmed by: Cassandra Davis MD 25-Mar-2020 01:59:24
[2020-03-25] MEDS: IPRATROPIUM/ALBUTEROL 0.5-2.5 MG/3 ML AMPUL NEB SCH ×4 (02:37→19:55)
[2020-03-25 02:53] LABS: HEMATOCRIT 34.1 % (36.0-47.0); HEMOGLOBIN 11.3 g/dL (12.0-15.5); LYMPHOCYTES % (AUTO) 10.7 % (13-45); MEAN CORPUSCULAR HEMOGLOBIN 32.4 pg (27.0-33.4); MEAN CORPUSCULAR HGB CONC 33.1 g/dL (32.0-36.0); MEAN CORPUSCULAR VOLUME 98 fl (80-97); MONOCYTES % (AUTO) 10.5 % (3-13); PLATELET COUNT 170 10^3/uL (150-450); RED BLOOD COUNT 3.49 10^6/uL (3.72-5.28); RED CELL DISTRIBUTION WIDTH 18.7 % (11.5-14.0); SEGMENTED NEUTROPHILS % (AUTO) 77.2 % (42-78); WHITE BLOOD COUNT 4.8 10^3/uL (4.0-10.5)
[2020-03-25 02:54] LABS: ABSOLUTE EOSINOPHILS # (AUTO) 0.1 10^3/uL (0.0-0.6); ABSOLUTE LYMPHOCYTES (AUTO) 0.5 10^3/uL (0.5-4.7); ABSOLUTE MONOCYTES (AUTO) 0.5 10^3/uL (0.1-1.4); ABSOLUTE NEUT (AUTO) 3.7 10^3/uL (1.7-8.2); BASOPHILS % (AUTO) 0.4 % (0-2); EOSINOPHILS % (AUTO) 1.2 % (0-6); TOTAL CELLS COUNTED % (AUTO) 100 %
[2020-03-25 03:06] LABS: ARTERIAL BLOOD BASE EXCESS -4.7 mmol/L; ARTERIAL BLOOD H2CO3 1.59 mmol/L (1.05-1.35); ARTERIAL BLOOD HCO3 22.7 mmol/L (20-24); ARTERIAL BLOOD O2 SATURATION 92.5 % (94-98); ARTERIAL BLOOD PCO2 52.9 mmHg (35-45); ARTERIAL BLOOD PH 7.25 (7.35-7.45); ARTERIAL BLOOD PO2 74.4 mmHg (80-100); ARTERIAL BLOOD TOTAL CO2 24.4 mmol/L (21-25)
[2020-03-25 03:08] LABS: ARTERIAL BLOOD FIO2 4L
[2020-03-25 03:16] LABS: INTERNATIONAL RATION (INR) 1.14; PROTHROMBIN TIME 14.9 SEC (11.4-15.4)
[2020-03-25 03:17] LABS: PARTIAL THROMBOPLASTIN TIME 39.3 SEC (23.5-35.8)
[2020-03-25 03:22] LABS: ALKALINE PHOSPHATASE 151 U/L (38-126); AMYLASE 40 U/L (30-110); ANION GAP 8 (5-19); ASPARTATE AMINO TRANSFERASE 19 U/L (14-36); BILIRUBIN,DIRECT 0.3 mg/dL (0.0-0.4); BILIRUBIN,TOTAL 0.4 mg/dL (0.2-1.3); BLOOD UREA NITROGEN 49 mg/dL (7-20); CALCIUM 9.2 mg/dL (8.4-10.2); CARBON DIOXIDE 22 mmol/L (22-30); CHLORIDE 103 mmol/L (98-107); GLUCOSE 93 mg/dL (75-110); POTASSIUM 5.9 mmol/L (3.6-5.0); TOTAL PROTEIN 6.8 g/dL (6.3-8.2)
[2020-03-25] MEDS ORDERED: NOREPINEPHRINE BITARTRATE INJ/PF 4 MG/4 ML SDV IV ONE (06:48)
[2020-03-25] MEDS: DEXTROSE 5%-WATER 250 ML with NOREPINEPHRINE BITARTRATE 4 MG IV PRN ×4 (06:54→15:00)
--- NOTE | 2020-03-25 10:44 | EKG REPORT ---
SEVERITY:- OTHERWISE NORMAL ECG - SINUS RHYTHM LOW VOLTAGE IN FRONTAL LEADS : Confirmed by: Cassandra Davis MD 25-Mar-2020 10:44:09
[2020-03-25] MEDS ORDERED: DOPAMINE HCL/DEXTROSE 5%-WATER 800 MG/250 ML RTUINJ IV ONE (11:26)
[2020-03-25] MEDS: DOPAMINE HCL 800 MG/D5W 250 ML IV PRN (11:40)
--- NOTE | 2020-03-25 21:51 | XCELERA REPORT ---
[address] [address] Transthoracic Echocardiogram Report Name: DYLAN SWARTZ Age: 59 yrs Gender: Female : 1960 Patient Status: Inpatient Patient Location: ICU^605^A Study Date: 03/25/2020 01:33 PM Height: 62 in Weight: 167 lb BSA: 1.8 m2 Procedure: A two-dimensional transthoracic echocardiogram with color flow and Doppler was performed. Study Quality: Fair. Saline conrtrast Bubble study done. Reason For Study: Intravenous Lexiscan Cardiolite stress test using single photon emmision computerized tomography. History: Hypotension. Ordering Physician: STEWART STEVENSON Performed By: Lalita River Interpretation Summary The left ventricle is normal in size. There is mild concentric left ventricular hypertrophy. LV EF is 55% Left ventricular systolic function is low normal. Doppler measurements suggest impaired left ventricular relaxation, which is associated with grade I/IV or mild diastolic dysfunction The left ventricular wall motion is normal. Paradoxical septal motion is consistent with right ventricular volume overload There is no thrombus. Bubble study shows no evidence of ASD , VSD , or PFO. The right ventricle is mild to moderately dilated. The right ventricular systolic function is borderline reduced. The right atrium is mild to moderately dilated. The left atrial size is normal. There is no evidence of mitral valve prolapse. There is no vegetation seen on the mitral valve. There is no mitral valve stenosis. There is a mild amount of mitral regurgitation There is no aortic valvular vegetation. There is no aortic valve stenosis There is no LVOT obstruction. No aortic regurgitation is present. There is no tricuspid stenosis. There is a moderate to severe amount of tricuspid regurgitation Calculated RVSP is 50 to 55 mm of Hg , with RA mean of 15 to 20.There is underestimation of the RVSP due to undersampling of the TR jet.There is at least moderate pulmobnary hypertension. There is no pulmonic valvular stenosis. There is a mild amount of pulmonic regurgitation The aortic root is normal size. The inferior vena cava appeared dilated and decreased < 50% with respiration (RAP 15-20 mmHg) There is no pericardial effusion. MMode/2D Measurements & Calculations RVDd: 3.7 cm LVIDd: 4.6 cm FS: 26.5 % Ao root diam: 2.3 cm IVSd: 1.2 cm LVIDs: 3.4 cm EDV(Teich): Ao root area: LVPWd: 1.2 cm 98.6 ml 4.3 cm2 ESV(Teich): LA dimension: 3.2 cm 47.4 ml EF(Teich): 51.9 % LVLd ap4: 8.3 cm SV(MOD-sp4): EDV(MOD-sp4): 55.0 ml 99.0 ml LVLs ap4: 7.4 cm ESV(MOD-sp4): 44.0 ml EF(MOD-sp4): 55.6 % Doppler Measurements & Calculations MV E max bebeto: MV P1/2t max bebeto: Ao V2 max: LV V1 max P.7 cm/sec 116.4 cm/sec 175.5 cm/sec 6.5 mmHg MV A max bebeto: MV P1/2t: 83.5 msec Ao max PG: LV V1 max: 125.4 cm/sec MVA(P1/2t): 2.6 cm2 12.3 mmHg 127.1 cm/sec MV E/A: 0.82 MV dec slope: 408.0 cm/sec2 MV dec time: 0.33 sec MR max bebeto: PA V2 max: PI end-d bebeto: TR max bebeto: 446.4 cm/sec 97.7 cm/sec 145.2 cm/sec 295.6 cm/sec MR max PG: PA max P.8 mmHg TR max P.7 mmHg 35.0 mmHg MV P1/2t-pr_phl: 83.5 msec Left Ventricle The left ventricle is normal in size. There is mild concentric left ventricular hypertrophy. LV EF is 55%. Left ventricular systolic function is low normal. Doppler measurements suggest impaired left ventricular relaxation, which is associated with grade I/IV or mild diastolic dysfunction. The left ventricular wall motion is normal. Paradoxical septal motion is consistent with right ventricular volume overload. There is no thrombus. Bubble study shows no evidence of ASD , VSD , or PFO. Right Ventricle The right ventricle is mild to moderately dilated. The right ventricular systolic function is borderline reduced. Atria The right atrium is mild to moderately dilated. The left atrial size is normal. Mitral Valve There is no evidence of mitral valve prolapse. There is no vegetation seen on the mitral valve. There is no mitral valve stenosis. There is a mild amount of mitral regurgitation. Aortic Valve There is no aortic valvular vegetation. There is no aortic valve stenosis. There is no LVOT obstruction. No aortic regurgitation is present. Tricuspid Valve There is no tricuspid stenosis. There is a moderate to severe amount of tricuspid regurgitation. Calculated RVSP is 50 to 55 mm of Hg , with RA mean of 15 to 20.There is underestimation of the RVSP due to undersampling of the TR jet.There is at least moderate pulmobnary hypertension. Pulmonic Valve There is no pulmonic valvular stenosis. There is a mild amount of pulmonic regurgitation. Great Vessels The aortic root is normal size. The inferior vena cava appeared dilated and decreased < 50% with respiration (RAP 15-20 mmHg). Effusions There is no pericardial effusion. : STEWART STEVENSON Lakshmi
[2020-03-26] MEDS: IPRATROPIUM/ALBUTEROL 0.5-2.5 MG/3 ML AMPUL NEB SCH ×4 (01:56→20:33)
[2020-03-26 04:39] LABS: ABSOLUTE LYMPHOCYTES (AUTO) 1.1 10^3/uL (0.5-4.7); ABSOLUTE MONOCYTES (AUTO) 0.6 10^3/uL (0.1-1.4); ABSOLUTE NEUT (AUTO) 4.2 10^3/uL (1.7-8.2); BASOPHILS % (AUTO) 0.3 % (0-2); EOSINOPHILS % (AUTO) 0.2 % (0-6); HEMATOCRIT 34.5 % (36.0-47.0); HEMOGLOBIN 11.4 g/dL (12.0-15.5); MEAN CORPUSCULAR HEMOGLOBIN 32.1 pg (27.0-33.4); MEAN CORPUSCULAR HGB CONC 33.1 g/dL (32.0-36.0); MEAN CORPUSCULAR VOLUME 97 fl (80-97); MONOCYTES % (AUTO) 10.2 % (3-13); PLATELET COUNT 159 10^3/uL (150-450); RED BLOOD COUNT 3.55 10^6/uL (3.72-5.28); RED CELL DISTRIBUTION WIDTH 18.5 % (11.5-14.0); SEGMENTED NEUTROPHILS % (AUTO) 70.3 % (42-78); TOTAL CELLS COUNTED % (AUTO) 100 %
[2020-03-26 05:05] LABS: ALBUMIN 3.1 g/dL (3.5-5.0); ALKALINE PHOSPHATASE 153 U/L (38-126); ANION GAP 7 (5-19); ASPARTATE AMINO TRANSFERASE 28 U/L (14-36); BILIRUBIN,DIRECT 0.4 mg/dL (0.0-0.4); BILIRUBIN,TOTAL 0.6 mg/dL (0.2-1.3); BLOOD UREA NITROGEN 31 mg/dL (7-20); CALCIUM 9.4 mg/dL (8.4-10.2); CARBON DIOXIDE 26 mmol/L (22-30); CHLORIDE 102 mmol/L (98-107); GLUCOSE 76 mg/dL (75-110); PHOSPHORUS 4.3 mg/dL (2.5-4.5); POTASSIUM 5.6 mmol/L (3.6-5.0); TOTAL PROTEIN 7.3 g/dL (6.3-8.2)
[2020-03-26] MEDS: HEPARIN SOD (PORCINE) 5,000 UNIT/ML 1 ML VIAL SUBCUT SCH ×3 (05:59→21:01)
[2020-03-26] MEDS: PANTOPRAZOLE SODIUM 40 MG VIAL IV SCH ×2 (09:25→21:00)
[2020-03-26] MEDS: DOPAMINE HCL 800 MG/D5W 250 ML IV PRN (12:13)
--- NOTE | 2020-03-26 12:28 | RADIOLOGY REPORT (SQ) ---
EXAM DESCRIPTION: CHEST SINGLE VIEW IMAGES COMPLETED DATE/TIME: 03/26/2020 6:28 am REASON FOR STUDY: ETT tube COMPARISON: 03/24/2020 NUMBER OF VIEWS: One view. TECHNIQUE: Single frontal radiographic image of the chest acquired. LIMITATIONS: Positioning. FINDINGS: LUNGS AND PLEURA: Increasing airspace opacity in the right costophrenic angle. Left lung is clear. MEDIASTINUM AND HEART: Stable heart size and mediastinal structures. SUPPORT DEVICES: Appropriate location without change. BONY STRUCTURES: No acute findings. HARDWARE: None. OTHER: No other significant finding. IMPRESSION: Increasing atelectasis or infiltrate right lower lobe. Reading location - IP/workstation name: [email or web address]
[2020-03-26] MEDS ORDERED: HALOPERIDOL LACTATE INJ 5 MG/1 ML VIAL ONE (14:20)
[2020-03-26] MEDS ORDERED: DEXMEDETOMIDINE IN 0.9 % NACL 400 MCG/100 ML RTUPB IV ONE (14:21)
[2020-03-26] MEDS ORDERED: PHENOBARBITAL INJ 65 MG/ML VIAL ONE (14:22)
[2020-03-26] MEDS ORDERED: PHENOBARBITAL INJ 65 MG/ML VIAL IV PRN (14:24)
[2020-03-26] MEDS ORDERED: DEXMEDETOMIDINE IN 0.9 % NACL 400 MCG/100 ML RTUPB IV PRN (14:26)
[2020-03-26] MEDS ORDERED: VANCOMYCIN HCL 0 MG in DEXTROSE 5%-WATER 250 ML IV NR (14:45)
[2020-03-26] MEDS: FUROSEMIDE INJ/PF 20 MG/2 ML SDV IV SCH ×2 (15:54→21:01)
[2020-03-26] MEDS: COLLAGENASE CLOSTRIDIUM HIST. OINT 30 GM TOP SCH (15:55)
[2020-03-26] MEDS: VANCOMYCIN HCL 1,000 MG in DEXTROSE 5%-WATER 250 ML IV SCH (15:55)
[2020-03-26] MEDS ORDERED: PHENOBARBITAL INJ 65 MG/ML VIAL IV ONE (16:30)
[2020-03-26] MEDS: CEFTRIAXONE 1 GM/D5W RTU 1 GM/50 ML RTUPB IV SCH (18:39)
--- NOTE | 2020-03-26 19:19 | PDOC CRITICAL CARE PROG REPORT ---
General Date:: 03/26/20 ICU Day:: 2 Hospital Day:: 2 Resuscitation Status: Full Code Events in the past 12 to 24 Hours:: This 59-year-old -[place] female presented to [facility] emergency department via EMS on 03/24/2020 with altered mental status. Per EMS report, they were called to the house for concerns of hypoxia. On arrival, they found her altered, only responsive to noxious stimuli. She uses home O2, for which she typically has SpO2 96-99%. However, she was requiring requiring a nonrebreather but was combative. Therefore, they administered Versed 5 mg IM. She subsequently was noted to be in sinus bradycardia, no reported hypotension. At the time of initial clinical encounter, the patient was obtunded and unable to participate in exam. 03/26: Transition from norepinephrine to dopamine for heart rate and blood pressure support yesterday. Currently, weaning dopamine. Dramatic improvement in mentation this morning. Seems to be word searching. But, does follow commands. Later in the morning, she became much more alert. Fully conversant. However, at about 1430, the patient started having visual hallucinations, claiming that there were bugs crawling all over her. She apparently has a known history of significant, regular alcohol consumption. Review of systems relevant to events:: Neurologic: Acute encephalopathy, altered mental status, alcohol intoxication Cardiovascular: Bradycardia, hypotension, CHF Respiratory: COPD Reason for ICU Addmission:: Altered mental status, hypotension, bradycardia - Medications: Medications reviewed and adjusted accordingly: Yes Vasopressors:: Dopamine Physical Exam Vital Signs: Temp Pulse Resp BP Pulse Ox 99.0 F 93 19 100/53 L 97 03/26/20 12:00 03/26/20 12:00 03/26/20 14:00 03/26/20 13:58 03/26/20 14:00 Intake & Output 03/25/20 03/26/20 03/27/20 06:59 06:59 06:59 Intake Total 8987 7826 44 Output Total 110 4027 1150 Balance 8768 -9519 -5092 Weight 76.1 kg 77.4 kg Weight/Height Weight 77.4 kg Height 1.57 m General appearance: PRESENT: no acute distress, well-developed, well-nourished Head exam: PRESENT: atraumatic, normocephalic Eye exam: PRESENT: conjunctiva pink, EOMI. ABSENT: PERRLA - Anisocoria (OD 4 mm, OS 3 mm) but both are reactive., scleral icterus Ear exam: PRESENT: normal external ear exam Mouth exam: PRESENT: moist, tongue midline Neck exam: ABSENT: carotid bruit, JVD, lymphadenopathy, thyromegaly Respiratory exam: PRESENT: clear to auscultation javier. ABSENT: rales, rhonchi, wheezes Cardiovascular exam: PRESENT: RRR. ABSENT: diastolic murmur, rubs, systolic murmur Pulses: PRESENT: normal dorsalis pedis pul Vascular exam: PRESENT: normal capillary refill GI/Abdominal exam: PRESENT: normal bowel sounds, soft. ABSENT: distended, guarding, mass, organolmegaly, rebound, tenderness Gentrourinary exam: PRESENT: indwelling catheter Extremities exam: PRESENT: full ROM. ABSENT: calf tenderness, clubbing, pedal edema Musculoskeletal exam: PRESENT: normal inspection. ABSENT: deformity Neurological exam: PRESENT: alert, awake, reflexes normal, CN II-XII grossly intact. ABSENT: motor sensory deficit Psychiatric exam: PRESENT: agitated, anxious Focused psych exam: PRESENT: delusional, paranoid, psychomotor agitation, other - Formication Skin exam: PRESENT: dry, intact, warm. ABSENT: cyanosis, rash Laboratory/Radiographs Laboratory Results: 03/26/20 04:11 03/26/20 04:11 03/26/20 03/26/20 04:11 04:11 WBC 6.0 RBC 3.55 L Hgb 11.4 L Hct 34.5 L MCV 97 MCH 32.1 MCHC 33.1 RDW 18.5 H Plt Count 159 Seg Neutrophils % 70.3 Sodium 134.6 L Potassium 5.6 H Chloride 102 Carbon Dioxide 26 Anion Gap 7 BUN 31 H Creatinine 0.59 Est GFR ( Amer) > 60 Glucose 76 Calcium 9.4 Phosphorus 4.3 Magnesium 2.9 H Total Bilirubin 0.6 AST 28 Alkaline Phosphatase 153 H Total Protein 7.3 Albumin 3.1 L 03/24/20 20:10 Blood Blood Culture (PCR) - Final Enterococcus Species 03/24/20 20:15 Catheterized Urine Urine Culture - Final NO GROWTH 2 DAYS 03/24/20 03/24/20 03/25/20 20:10 20:10 02:47 Creatine Kinase 32 Troponin I 0.097 0.114 NT-Pro-B Natriuret Pep 2480 H 03/25/20 03/25/20 03/25/20 02:47 08:06 14:42 Creatine Kinase Troponin I 0.134 0.166 NT-Pro-B Natriuret Pep 2080 H 03/26/20 04:11 Creatine Kinase Troponin I NT-Pro-B Natriuret Pep 3290 H Impressions: Head CT 03/24/20 20:09 IMPRESSION: 1. No acute intracranial abnormalities. Nonspecific, mild white matter change most likely small vessel ischemic disease, age indeterminate. 2. CT is insensitive for early evaluation of acute stroke. If there is clinical concern for acute ischemia, an MRI may be considered. 3. Suspected acute on chronic sinus disease. Chest X-Ray 03/26/20 05:00 IMPRESSION: Increasing atelectasis or infiltrate right lower lobe. All labs, radiographs, diagnostic studies and EKGs were personally reviewed: Yes In addition, reports of radiographic and diagnostic studies were read: Yes Assessment and Plan - Diagnosis (1) Shock Is this a current diagnosis for this admission?: Yes Plan: * Wean dopamine as tolerated. Maintain MAP 65. (2) Alcohol withdrawal Qualifiers: Complication of substance-induced condition: with unspecified complication Qualified Code(s): F10.239 - Alcohol dependence with withdrawal, unspecified Is this a current diagnosis for this admission?: Yes Plan: * Precedex infusion as needed. * Phenobarbital monotherapy for alcohol withdrawal * 130 mg IV every hour as needed for CIWA score 815 * 260 mg IV every hour as needed for CIWA score > 15 * Haldol 2.5 mg IV every 6 hours as needed for delirium that is not alleviated by Precedex/phenobarbital. (3) Alcoholic encephalopathy Is this a current diagnosis for this admission?: Yes (4) Enterococcal bacteremia Is this a current diagnosis for this admission?: Yes Plan: * Start vancomycin. (5) CHF (congestive heart failure) Qualifiers: Heart failure type: unspecified Heart failure chronicity: unspecified Qualified Code(s): I50.9 - Heart failure, unspecified Is this a current diagnosis for this admission?: Yes Plan: * 2D echo (03/25): LV EF 55% with mild concentric LVH. Grade 1/4 diastolic dysfunction. RA mild to moderately dilated. RV mild to moderately dilated. Mild mitral regurgitation. * proBNP 3290. * Furosemide 20 mg IV every 12 hours x2 doses. (6) COPD (chronic obstructive pulmonary disease) Qualifiers: COPD type: unspecified COPD Qualified Code(s): J44.9 - Chronic obstructive pulmonary disease, unspecified Is this a current diagnosis for this admission?: Yes Plan: * DuoNeb scheduled. Critical Time Critical Time (minutes): 45 Level of Care: ICU -: 1. The care of a critical patient is a dynamic process. This note is a auto claim representative synopsis but static in nature. The timeframe for treatments given in order is not necessarily the actual time these treatments may have been done. 2. This patient requires critical care secondary to ongoing requirements for therapy not offered or safe outside the critical care environment. Transfer to a lower level of care will result in altered life or limb morbidity and mortality. 3. Multidisciplinary rounds completed. 4. ABCDE bundle addressed.
[2020-03-27] MEDS: IPRATROPIUM/ALBUTEROL 0.5-2.5 MG/3 ML AMPUL NEB SCH ×4 (01:58→20:23)
[2020-03-27] MEDS: HALOPERIDOL LACTATE INJ 5 MG/1 ML VIAL IV PRN ×2 (02:59→21:42)
[2020-03-27 04:31] LABS: ABSOLUTE LYMPHOCYTES (AUTO) 0.8 10^3/uL (0.5-4.7); ABSOLUTE MONOCYTES (AUTO) 0.4 10^3/uL (0.1-1.4); ABSOLUTE NEUT (AUTO) 6.5 10^3/uL (1.7-8.2); BASOPHILS % (AUTO) 0.3 % (0-2); HEMATOCRIT 31.6 % (36.0-47.0); HEMOGLOBIN 10.6 g/dL (12.0-15.5); LYMPHOCYTES % (AUTO) 10.6 % (13-45); MEAN CORPUSCULAR HEMOGLOBIN 32.3 pg (27.0-33.4); MEAN CORPUSCULAR HGB CONC 33.7 g/dL (32.0-36.0); MEAN CORPUSCULAR VOLUME 96 fl (80-97); MONOCYTES % (AUTO) 5.6 % (3-13); PLATELET COUNT 153 10^3/uL (150-450); RED BLOOD COUNT 3.29 10^6/uL (3.72-5.28); RED CELL DISTRIBUTION WIDTH 18.3 % (11.5-14.0); SEGMENTED NEUTROPHILS % (AUTO) 83.5 % (42-78); TOTAL CELLS COUNTED % (AUTO) 100 %; WHITE BLOOD COUNT 7.8 10^3/uL (4.0-10.5)
[2020-03-27 04:52] LABS: ALBUMIN 2.9 g/dL (3.5-5.0); ALKALINE PHOSPHATASE 154 U/L (38-126); ANION GAP 9 (5-19); ASPARTATE AMINO TRANSFERASE 21 U/L (14-36); BILIRUBIN,DIRECT 0.3 mg/dL (0.0-0.4); BILIRUBIN,TOTAL 0.7 mg/dL (0.2-1.3); BLOOD UREA NITROGEN 12 mg/dL (7-20); CALCIUM 9.4 mg/dL (8.4-10.2); CARBON DIOXIDE 30 mmol/L (22-30); CHLORIDE 96 mmol/L (98-107); GLUCOSE 73 mg/dL (75-110); TOTAL PROTEIN 6.8 g/dL (6.3-8.2)
[2020-03-27 05:08] LABS: POTASSIUM 4.5 mmol/L (3.6-5.0)
[2020-03-27] MEDS: PHENOBARBITAL INJ 65 MG/ML VIAL IV PRN ×3 (05:11→10:05)
[2020-03-27] MEDS: VANCOMYCIN HCL 1,000 MG in DEXTROSE 5%-WATER 250 ML IV SCH ×2 (05:11→18:01)
[2020-03-27] MEDS: HEPARIN SOD (PORCINE) 5,000 UNIT/ML 1 ML VIAL SUBCUT SCH ×3 (05:13→21:41)
--- NOTE | 2020-03-27 07:40 | CDI QUERY ---
CDI Query CDI Review: Dear Provider, Please clarify and document in progress notes and D/C summary if you agree with the clinical data noted in progress notes: *Please specify "SHOCK"... hypovolemic, septic, hypotensive, cardiogenic, other? *Please clarify "hypoxia, obtunded"... ACUTE RESPIRATORY FAILURE? ACUTE RESPIRATORY DISTRESS? other? *Please further specify "ALCOHOLIC ENCEPHALOPATHY" METABOLIC? TOXIC? HEPATIC? other? *Please clarify if pt has PNEUMONIA, type , insignificant cxr finding, other? Thanks, Annemarie Murphy, [facility] [phone]
[2020-03-27] MEDS ORDERED: FUROSEMIDE INJ/PF 40 MG/4 ML SDV ONE (08:40)
[2020-03-27] MEDS: PANTOPRAZOLE SODIUM 40 MG VIAL IV SCH ×2 (09:45→21:41)
[2020-03-27] MEDS ORDERED: FUROSEMIDE INJ/PF 40 MG/4 ML SDV IV ONE (09:45)
[2020-03-27] MEDS: COLLAGENASE CLOSTRIDIUM HIST. OINT 30 GM TOP SCH (09:45)
[2020-03-27] MEDS ORDERED: PHENOBARBITAL 64.8 MG TABLET PO PRN ×2 (13:17)
--- NOTE | 2020-03-27 13:19 | PDOC CRITICAL CARE PROG REPORT ---
General Date:: 03/27/20 ICU Day:: 3 Hospital Day:: 3 Resuscitation Status: Full Code Events in the past 12 to 24 Hours:: This 59-year-old -[place] female presented to [facility] emergency department via EMS on 03/24/2020 with altered mental status. Per EMS report, they were called to the house for concerns of hypoxia. On arrival, they found her altered, only responsive to noxious stimuli. She uses home O2, for which she typically has SpO2 96-99%. However, she was requiring requiring a nonrebreather but was combative. Therefore, they administered Versed 5 mg IM. She subsequently was noted to be in sinus bradycardia, no reported hypotension. At the time of initial clinical encounter, the patient was obtunded and unable to participate in exam. 03/26: Transition from norepinephrine to dopamine for heart rate and blood pressure support yesterday. Currently, weaning dopamine. Dramatic improvement in mentation this morning. Seems to be word searching. But, does follow commands. Later in the morning, she became much more alert. Fully conversant. However, at about 1430, the patient started having visual hallucinations, claiming that there were bugs crawling all over her. She apparently has a known history of significant, regular alcohol consumption. 03/27: Off dopamine. On Rocephin/vancomycin for enterococcal bacteremia. She also complained of dyspnea. Crackles noted on exam. proBNP 6880. Still having occasional hallucinations (snakes crawling on the bed). Got 1 dose of phenobarbital this morning. Review of systems relevant to events:: Neurologic: Acute encephalopathy, altered mental status, alcohol intoxication Cardiovascular: Bradycardia, hypotension, CHF Respiratory: COPD Reason for ICU Addmission:: Altered mental status, hypotension, bradycardia - Medications: Medications reviewed and adjusted accordingly: Yes Vasopressors:: None Physical Exam Vital Signs: Temp Pulse Resp BP Pulse Ox 99.3 F 91 21 H 102/64 82 L 03/27/20 10:00 03/27/20 08:40 03/27/20 10:14 03/27/20 10:14 03/27/20 08:43 Intake & Output 03/26/20 03/27/20 03/28/20 06:59 06:59 06:59 Intake Total 8786 733 60 Output Total 0480 7209 1400 Balance -1111 -8851 -4243 Weight 77.4 kg 71.7 kg Weight/Height Weight 71.7 kg Height 1.57 m General appearance: PRESENT: no acute distress, well-developed, well-nourished Head exam: PRESENT: atraumatic, normocephalic Eye exam: PRESENT: conjunctiva pink, EOMI, PERRLA. ABSENT: scleral icterus Mouth exam: PRESENT: moist, tongue midline Neck exam: ABSENT: carotid bruit, JVD, lymphadenopathy, thyromegaly Respiratory exam: PRESENT: crackles, symmetrical. ABSENT: rales, rhonchi, wheezes Cardiovascular exam: PRESENT: RRR. ABSENT: diastolic murmur, rubs, systolic murmur Vascular exam: PRESENT: normal capillary refill GI/Abdominal exam: PRESENT: normal bowel sounds, soft. ABSENT: distended, guarding, mass, organolmegaly, rebound, tenderness Extremities exam: PRESENT: full ROM. ABSENT: calf tenderness, clubbing, pedal edema Musculoskeletal exam: PRESENT: normal inspection. ABSENT: deformity Neurological exam: PRESENT: alert, awake, oriented to person, oriented to place, reflexes normal, CN II-XII grossly intact. ABSENT: motor sensory deficit Psychiatric exam: ABSENT: agitated, anxious Skin exam: PRESENT: dry, intact, warm. ABSENT: cyanosis, rash Laboratory/Radiographs Laboratory Results: 03/27/20 04:10 03/27/20 04:10 03/27/20 03/27/20 04:10 04:10 WBC 7.8 RBC 3.29 L Hgb 10.6 L Hct 31.6 L MCV 96 MCH 32.3 MCHC 33.7 RDW 18.3 H Plt Count 153 Seg Neutrophils % 83.5 H Sodium 135.1 L Potassium 4.5 D Chloride 96 L Carbon Dioxide 30 Anion Gap 9 BUN 12 Creatinine 0.42 L Est GFR ( Amer) > 60 Glucose 73 L Calcium 9.4 Total Bilirubin 0.7 AST 21 Alkaline Phosphatase 154 H Total Protein 6.8 Albumin 2.9 L 03/24/20 20:10 Blood Blood Culture (PCR) - Final Enterococcus Species 03/24/20 20:10 Blood Blood Culture - Final Enterococcus Faecalis(Group D) 03/24/20 03/24/20 03/25/20 20:10 20:10 02:47 Creatine Kinase 32 Troponin I 0.097 0.114 NT-Pro-B Natriuret Pep 2480 H 12/16/20 12/16/20 12/16/20 02:47 08:06 14:42 Creatine Kinase Troponin I 0.134 0.166 NT-Pro-B Natriuret Pep 2080 H 03/26/20 03/27/20 04:11 04:10 Creatine Kinase Troponin I NT-Pro-B Natriuret Pep 3290 H 6880 H Impressions: Head CT 03/24/20 20:09 IMPRESSION: 1. No acute intracranial abnormalities. Nonspecific, mild white matter change most likely small vessel ischemic disease, age indeterminate. 2. CT is insensitive for early evaluation of acute stroke. If there is clinical concern for acute ischemia, an MRI may be considered. 3. Suspected acute on chronic sinus disease. Chest X-Ray 03/26/20 05:00 IMPRESSION: Increasing atelectasis or infiltrate right lower lobe. All labs, radiographs, diagnostic studies and EKGs were personally reviewed: Yes In addition, reports of radiographic and diagnostic studies were read: Yes Assessment and Plan - Diagnosis (1) Septic shock Is this a current diagnosis for this admission?: Yes Plan: Resolved (2) Enterococcal bacteremia Is this a current diagnosis for this admission?: Yes Plan: * On Rocephin/vancomycin for enterococcal bacteremia. (3) Alcohol withdrawal Qualifiers: Complication of substance-induced condition: with unspecified complication Qualified Code(s): F10.239 - Alcohol dependence with withdrawal, unspecified Is this a current diagnosis for this admission?: Yes Plan: * Off Precedex * Phenobarbital monotherapy for alcohol withdrawal * 130 mg p.o. every hour as needed for CIWA score 815 * 260 mg p.o. every hour as needed for CIWA score > 15 * Avoid benzodiazepines. (4) Alcoholic encephalopathy Is this a current diagnosis for this admission?: Yes (5) CHF (congestive heart failure) Qualifiers: Heart failure type: unspecified Heart failure chronicity: unspecified Qualified Code(s): I50.9 - Heart failure, unspecified Is this a current diagnosis for this admission?: Yes Plan: * 2D echo (03/25): LV EF 55% with mild concentric LVH. Grade 1/4 diastolic dysfunction. RA mild to moderately dilated. RV mild to moderately dilated. Mild mitral regurgitation. * proBNP Ext 880. * Furosemide 40 mg IV single dose today. (6) COPD (chronic obstructive pulmonary disease) Qualifiers: COPD type: unspecified COPD Qualified Code(s): J44.9 - Chronic obstructive pulmonary disease, unspecified Is this a current diagnosis for this admission?: Yes Plan: * Nidhi scheduled. Plan Summary: Okay to transfer to the floor from pulmonary/critical care standpoint. Critical Time Critical Time (minutes): 45 Level of Care: ICU -: 1. The care of a critical patient is a dynamic process. This note is a pharmacy services representative synopsis but static in nature. The timeframe for treatments given in order is not necessarily the actual time these treatments may have been done. 2. This patient requires critical care secondary to ongoing requirements for therapy not offered or safe outside the critical care environment. Transfer to a lower level of care will result in altered life or limb morbidity and mortality. 3. Multidisciplinary rounds completed. 4. ABCDE bundle addressed.
[2020-03-27] MEDS: CEFTRIAXONE 1 GM/D5W RTU 1 GM/50 ML RTUPB IV SCH (18:01)
--- NOTE | 2020-03-27 19:01 | PDOC PROGRESS REPORT ---
Subjective Date:: 03/27/20 Subjective:: Briefly, patient was admitted to the ICU for altered mental status, hypotension, and bradycardia. Patient initially treated with dopamine drip with improvement of her bradycardia and hypotension. She was then noted to be hallucinating. Patient notably has a history of lung cancer. Patient was treated for the alcoholic withdrawal with DT and given phenobarbital in the ICU. Informed that her DTs is resolved and has not required much for withdrawal. Most recent CIWA scores have been quite low. And transferred out of the ICU. On antibiotics for Enterococcus bacteremia. Reason For Visit: SHOCK ABTUNDED HENRY ACUTE KIDNEY INJURY Physical Exam Vital Signs: Temp Pulse Resp BP Pulse Ox 99.3 F 107 H 19 111/58 L 100 03/27/20 10:00 03/27/20 14:00 03/27/20 18:00 03/27/20 17:59 03/27/20 18:00 Intake & Output 03/26/20 03/27/20 03/28/20 06:59 06:59 06:59 Intake Total 2364 733 60 Output Total 9036 1490 1400 Balance -8795 -4753 -4257 Weight 77.4 kg 71.7 kg Results Laboratory Results: 03/27/20 04:10 03/27/20 04:10 03/27/20 03/27/20 04:10 04:10 WBC 7.8 RBC 3.29 L Hgb 10.6 L Hct 31.6 L MCV 96 MCH 32.3 MCHC 33.7 RDW 18.3 H Plt Count 153 Seg Neutrophils % 83.5 H Sodium 135.1 L Potassium 4.5 D Chloride 96 L Carbon Dioxide 30 Anion Gap 9 BUN 12 Creatinine 0.42 L Est GFR ( Amer) > 60 Glucose 73 L Calcium 9.4 Total Bilirubin 0.7 AST 21 Alkaline Phosphatase 154 H Total Protein 6.8 Albumin 2.9 L 03/24/20 20:10 Blood Blood Culture (PCR) - Final Enterococcus Species 03/24/20 20:10 Blood Blood Culture - Final Enterococcus Faecalis(Group D) 03/24/20 03/24/20 03/25/20 20:10 20:10 02:47 Creatine Kinase 32 Troponin I 0.097 0.114 NT-Pro-B Natriuret Pep 2480 H 03/25/20 03/25/20 03/25/20 02:47 08:06 14:42 Creatine Kinase Troponin I 0.134 0.166 NT-Pro-B Natriuret Pep 2080 H 03/26/20 03/27/20 04:11 04:10 Creatine Kinase Troponin I NT-Pro-B Natriuret Pep 3290 H 6880 H Impressions: Head CT 03/24/20 20:09 IMPRESSION: 1. No acute intracranial abnormalities. Nonspecific, mild white matter change most likely small vessel ischemic disease, age indeterminate. 2. CT is insensitive for early evaluation of acute stroke. If there is clinical concern for acute ischemia, an MRI may be considered. 3. Suspected acute on chronic sinus disease. Chest X-Ray 03/26/20 05:00 IMPRESSION: Increasing atelectasis or infiltrate right lower lobe. Assessment and Plan - Diagnosis (1) Alcohol withdrawal Qualifiers: Complication of substance-induced condition: with unspecified complication Qualified Code(s): F10.239 - Alcohol dependence with withdrawal, unspecified Is this a current diagnosis for this admission?: Yes Plan: Monitor CIWA. (2) Enterococcal bacteremia Is this a current diagnosis for this admission?: Yes Plan: Continue antibiotics. (3) Septic shock Is this a current diagnosis for this admission?: Yes Plan: Resolved (4) Alcoholic encephalopathy Is this a current diagnosis for this admission?: Yes (5) CHF (congestive heart failure) Qualifiers: Heart failure type: unspecified Heart failure chronicity: unspecified Qualified Code(s): I50.9 - Heart failure, unspecified Is this a current diagnosis for this admission?: Yes (6) COPD (chronic obstructive pulmonary disease) Qualifiers: COPD type: unspecified COPD Qualified Code(s): J44.9 - Chronic obstructive pulmonary disease, unspecified Is this a current diagnosis for this admission?: Yes - Time Time Spent with patient: Less than 15 minutes Anticipated Discharge Disposition: Home, Self Care Anticipated Discharge Timeframe: within 72 hours
[2020-03-27] MEDS: DEXTROSE 5%-1/2 NORMAL SALINE 1,000 ML IV PRN (21:44)
[2020-03-28] MEDS: IPRATROPIUM/ALBUTEROL 0.5-2.5 MG/3 ML AMPUL NEB SCH ×4 (02:27→20:21)
[2020-03-28] MEDS: VANCOMYCIN HCL 1,000 MG in DEXTROSE 5%-WATER 250 ML IV SCH ×2 (06:38→18:40)
[2020-03-28] MEDS: HEPARIN SOD (PORCINE) 5,000 UNIT/ML 1 ML VIAL SUBCUT SCH ×3 (06:39→22:27)
[2020-03-28 07:20] LABS: VANCOMYCIN,TROUGH 12.2 ug/mL (5.0-20.0)
[2020-03-28] MEDS: PANTOPRAZOLE SODIUM 40 MG VIAL IV SCH ×2 (10:50→22:27)
[2020-03-28] MEDS: COLLAGENASE CLOSTRIDIUM HIST. OINT 30 GM TOP SCH (10:52)
[2020-03-28 11:02] LABS: ABSOLUTE LYMPHOCYTES (AUTO) 1.2 10^3/uL (0.5-4.7); ABSOLUTE MONOCYTES (AUTO) 0.6 10^3/uL (0.1-1.4); ABSOLUTE NEUT (AUTO) 5.2 10^3/uL (1.7-8.2); BASOPHILS % (AUTO) 0.5 % (0-2); EOSINOPHILS % (AUTO) 0.6 % (0-6); HEMATOCRIT 34.1 % (36.0-47.0); HEMOGLOBIN 11.3 g/dL (12.0-15.5); LYMPHOCYTES % (AUTO) 17.2 % (13-45); MEAN CORPUSCULAR HEMOGLOBIN 31.9 pg (27.0-33.4); MEAN CORPUSCULAR VOLUME 97 fl (80-97); MONOCYTES % (AUTO) 8.4 % (3-13); PLATELET COUNT 139 10^3/uL (150-450); RED BLOOD COUNT 3.53 10^6/uL (3.72-5.28); SEGMENTED NEUTROPHILS % (AUTO) 73.3 % (42-78); TOTAL CELLS COUNTED % (AUTO) 100 %; WHITE BLOOD COUNT 7.1 10^3/uL (4.0-10.5)
[2020-03-28 13:42] LABS: ANION GAP 6 (5-19); BLOOD UREA NITROGEN 9 mg/dL (7-20); CALCIUM 8.6 mg/dL (8.4-10.2); CARBON DIOXIDE 34 mmol/L (22-30); CHLORIDE 92 mmol/L (98-107); GLUCOSE 122 mg/dL (75-110); POTASSIUM 3.9 mmol/L (3.6-5.0)
[2020-03-28] MEDS: ACETAMINOPHEN 325 MG TABLET PO PRN ×2 (13:50→22:26)
[2020-03-28] MEDS ORDERED: NICOTINE 21 MG/24 HR PATCH.TD24 TD PRN (17:12)
[2020-03-28] MEDS ORDERED: FUROSEMIDE 20 MG TABLET PO SCH (17:15)
[2020-03-28] MEDS ORDERED: FLUTICASONE/VILANTEROL 200-25 MCG/DOSE IH ONE (17:15)
[2020-03-28] MEDS ORDERED: BUPRENORPHINE HCL 2 MG SUBLINGUAL TABLET SL ONE (17:16)
[2020-03-28] MEDS ORDERED: FUROSEMIDE INJ/PF 20 MG/2 ML SDV IV ONE (17:21)
--- NOTE | 2020-03-28 17:22 | PDOC PROGRESS REPORT ---
Subjective Date:: 03/28/20 Subjective:: This morning, patient is awake and alert. She seems to be over her withdrawal a t this point. She is not having any tremulousness. She is forgetful and has a tough time sometimes remembering names but is fully cognizant of the current situation. She complains of pain in her joints in her legs. She endorses history of polyarthritis. Also still coughing Reason For Visit: SHOCK ABTUNDED HENRY ACUTE KIDNEY INJURY Physical Exam Vital Signs: Temp Pulse Resp BP Pulse Ox 98.2 F 104 H 20 91/54 L 91 L 03/28/20 11:10 03/28/20 11:10 03/28/20 11:10 03/28/20 11:10 03/28/20 11:10 Intake & Output 03/27/20 03/28/20 03/29/20 06:59 06:59 06:59 Intake Total 733 360 358 Output Total 4650 5015 Balance -6707 -9695 358 Weight 71.7 kg 71.7 kg General appearance: PRESENT: no acute distress, cooperative Respiratory exam: PRESENT: symmetrical, unlabored. ABSENT: tachypnea, wheezes Cardiovascular exam: PRESENT: RRR, +S1, +S2. ABSENT: tachycardia GI/Abdominal exam: PRESENT: soft. ABSENT: rebound, rigid, tenderness Neurological exam: PRESENT: alert, awake, oriented to person, oriented to place, oriented to situation, other - nontremulous. ABSENT: oriented to time Results Laboratory Results: 03/28/20 10:40 03/28/20 13:04 03/28/20 03/28/20 03/28/20 05:42 10:40 10:40 WBC 7.1 RBC 3.53 L Hgb 11.3 L Hct 34.1 L MCV 97 MCH 31.9 MCHC 33.0 RDW 18.0 H Plt Count 139 L Seg Neutrophils % 73.3 Sodium Cancelled Potassium Cancelled Chloride Cancelled Carbon Dioxide Cancelled Anion Gap Cancelled BUN Cancelled Creatinine 0.38 L Cancelled Est GFR ( Amer) > 60 Cancelled Est GFR (Non-Af Amer) Cancelled Glucose Cancelled Calcium Cancelled 03/28/20 13:04 WBC RBC Hgb Hct MCV MCH MCHC RDW Plt Count Seg Neutrophils % Sodium 131.5 L Potassium 3.9 Chloride 92 L Carbon Dioxide 34 H Anion Gap 6 BUN 9 Creatinine 0.44 L Est GFR ( Amer) > 60 Est GFR (Non-Af Amer) Glucose 122 H Calcium 8.6 03/24/20 20:10 Blood Blood Culture (PCR) - Final Enterococcus Species 03/24/20 20:10 Blood Blood Culture - Final Enterococcus Faecalis(Group D) 03/24/20 03/24/20 03/25/20 20:10 20:10 02:47 Creatine Kinase 32 Troponin I 0.097 0.114 NT-Pro-B Natriuret Pep 2480 H 03/25/20 03/25/20 03/25/20 02:47 08:06 14:42 Creatine Kinase Troponin I 0.134 0.166 NT-Pro-B Natriuret Pep 2080 H 03/26/20 03/27/20 04:11 04:10 Creatine Kinase Troponin I NT-Pro-B Natriuret Pep 3290 H 6880 H Impressions: Head CT 03/24/20 20:09 IMPRESSION: 1. No acute intracranial abnormalities. Nonspecific, mild white matter change most likely small vessel ischemic disease, age indeterminate. 2. CT is insensitive for early evaluation of acute stroke. If there is clinical concern for acute ischemia, an MRI may be considered. 3. Suspected acute on chronic sinus disease. Chest X-Ray 03/26/20 05:00 IMPRESSION: Increasing atelectasis or infiltrate right lower lobe. Assessment and Plan - Diagnosis (1) Enterococcal bacteremia Is this a current diagnosis for this admission?: Yes Plan: Continue vancomycin. Discontinue ceftriaxone. Has penicillin allergy. Repeat blood cultures (2) Alcohol withdrawal Qualifiers: Complication of substance-induced condition: with unspecified complication Qualified Code(s): F10.239 - Alcohol dependence with withdrawal, unspecified Is this a current diagnosis for this admission?: Yes Plan: Low CIWA scores. On my assessments of her, she does not seem to be in withdrawal anymore. She is off phenobarbital and not requiring any Ativan. We will continue to monitor. (3) Alcoholic encephalopathy Is this a current diagnosis for this admission?: Yes Plan: Her mentation is quite good today. She is forgetful and has trouble remembering names but is fully cognizant of what is going on. Thiamine supplements. (4) CHF (congestive heart failure) Qualifiers: Heart failure type: unspecified Heart failure chronicity: unspecified Qualified Code(s): I50.9 - Heart failure, unspecified Is this a current diagnosis for this admission?: Yes Plan: 2D echo (03/25): LV EF 55% with mild concentric LVH. Grade 1/4 diastolic dysfunction. RA mild to moderately dilated. RV mild to moderately dilated. Mild mitral regurgitation, RVSP 50-55mmHg D/c iv fluids. Will give another dose of IV lasix today. Monitor BP closely (5) Pulmonary hypertension Is this a current diagnosis for this admission?: Yes (6) COPD (chronic obstructive pulmonary disease) Qualifiers: COPD type: unspecified COPD Qualified Code(s): J44.9 - Chronic obstructive pulmonary disease, unspecified Is this a current diagnosis for this admission?: Yes (7) Septic shock Is this a current diagnosis for this admission?: Yes Plan: Resolved - Time Time Spent with patient: 15-24 minutes Anticipated Discharge Disposition: Home with Home Health Anticipated Discharge Timeframe: within 72 hours
[2020-03-28] MEDS: MIDODRINE HCL 5 MG TABLET PO SCH (18:41)
[2020-03-28] MEDS: GUAIFENESIN SYRP 200 MG/10 ML UDC PO PRN (18:42)
[2020-03-28] MEDS ORDERED: RISPERIDONE 0.5 MG TAB.RAPDIS ONE (21:16)
[2020-03-28] MEDS ORDERED: BUPRENORPHINE HCL 2 MG SUBLINGUAL TABLET SL SCH (22:00)
[2020-03-28] MEDS: RISPERIDONE 0.5 MG TAB.RAPDIS PO SCH (22:27)
[2020-03-29] MEDS: IPRATROPIUM/ALBUTEROL 0.5-2.5 MG/3 ML AMPUL NEB SCH ×4 (02:37→21:28)
[2020-03-29] MEDS: GUAIFENESIN SYRP 200 MG/10 ML UDC PO PRN ×3 (03:02→17:18)
[2020-03-29] MEDS: VANCOMYCIN HCL 1,000 MG in DEXTROSE 5%-WATER 250 ML IV SCH ×2 (05:05→17:17)
[2020-03-29] MEDS: HEPARIN SOD (PORCINE) 5,000 UNIT/ML 1 ML VIAL SUBCUT SCH ×3 (05:06→21:25)
[2020-03-29] MEDS: ACETAMINOPHEN 325 MG TABLET PO PRN (05:06)
[2020-03-29] MEDS ORDERED: FLUTICASONE/VILANTEROL 200-25 MCG/DOSE IH SCH (08:00)
[2020-03-29] MEDS: THIAMINE HCL 100 MG TABLET PO SCH (10:24)
[2020-03-29] MEDS: DOCUSATE SODIUM 100 MG CAPSULE PO SCH (10:24)
[2020-03-29] MEDS: MIDODRINE HCL 5 MG TABLET PO SCH ×3 (10:24→17:18)
[2020-03-29] MEDS: PANTOPRAZOLE SODIUM 40 MG VIAL IV SCH ×2 (10:24→21:25)
[2020-03-29] MEDS: POTASSIUM CHLORIDE 10 MEQ TABLET.ER PO SCH (10:24)
[2020-03-29] MEDS: FOLIC ACID 1 MG TABLET PO SCH (10:24)
[2020-03-29] MEDS: MULTIVITAMIN TABLET PO SCH (10:24)
[2020-03-29] MEDS: BUPRENORPHINE HCL 2 MG SUBLINGUAL TABLET SL SCH ×2 (10:25→21:26)
[2020-03-29] MEDS: COLLAGENASE CLOSTRIDIUM HIST. OINT 30 GM TOP SCH (10:26)
[2020-03-29] MEDS: FLUTICASONE/VILANTEROL 200-25 MCG/DOSE IH SCH (10:55)
[2020-03-29] MEDS: RISPERIDONE 0.5 MG TAB.RAPDIS PO SCH ×2 (10:55→17:18)
--- NOTE | 2020-03-29 15:52 | PDOC PROGRESS REPORT ---
Subjective Date:: 03/29/20 Subjective:: Complains of nagging cough. Also complains of pain in her right foot. Reason For Visit: SH[facility] ABTUNDED [facility] ACUTE KID[facility] IN[facility]Y Physical Exam Vital Signs: Temp Pulse Resp BP Pulse Ox 97.8 F 82 16 112/53 L 94 03/29/20 08:30 03/29/20 14:20 03/29/20 14:20 03/29/20 08:00 03/29/20 08:00 Intake & Output 03/28/20 03/29/20 03/30/20 06:59 06:59 06:59 Intake Total 360 2718 480 Output Total 2878 2900 Balance -2515 -182 480 Weight 71.7 kg 69.8 kg General appearance: PRESENT: no acute distress, cooperative Respiratory exam: PRESENT: rhonchi, symmetrical, unlabored, wheezes - Expiratory wheeze. ABSENT: accessory muscle use, tachypnea Cardiovascular exam: PRESENT: RRR, +S1, +S2. ABSENT: tachycardia GI/Abdominal exam: PRESENT: soft. ABSENT: rebound, rigid, tenderness Neurological exam: PRESENT: alert, awake, oriented to person, oriented to place, oriented to time, oriented to situation Results Laboratory Results: 03/28/20 10:40 03/28/20 13:04 03/28/20 10:50 Blood Blood Culture (PCR) - Final Staphylococcus Species 03/24/20 03/24/20 03/25/20 20:10 20:10 02:47 Creatine Kinase 32 Troponin I 0.097 0.114 NT-Pro-B Natriuret Pep 2480 H 03/25/20 03/25/20 03/25/20 02:47 08:06 14:42 Creatine Kinase Troponin I 0.134 0.166 NT-Pro-B Natriuret Pep 2080 H 03/26/20 03/27/20 04:11 04:10 Creatine Kinase Troponin I NT-Pro-B Natriuret Pep 3290 H 6880 H Impressions: Head CT 03/24/20 20:09 IMPRESSION: 1. No acute intracranial abnormalities. Nonspecific, mild white matter change most likely small vessel ischemic disease, age indeterminate. 2. CT is insensitive for early evaluation of acute stroke. If there is clinical concern for acute ischemia, an MRI may be considered. 3. Suspected acute on chronic sinus disease. Chest X-Ray 03/26/20 05:00 IMPRESSION: Increasing atelectasis or infiltrate right lower lobe. Assessment and Plan - Diagnosis (1) Enterococcal bacteremia Is this a current diagnosis for this admission?: Yes Plan: Continue vancomycin. Has penicillin allergy. Repeat blood cultures negative at 24 hours [excluding contamination] (2) COPD (chronic obstructive pulmonary disease) Qualifiers: COPD type: COPD with acute exacerbation Qualified Code(s): J44.1 - Chronic obstructive pulmonary disease with (acute) exacerbation Is this a current diagnosis for this admission?: Yes Plan: Still having some expiratory wheezing today. We will add some prednisone. Cont inue duo nebs. (3) Alcohol withdrawal Qualifiers: Complication of substance-induced condition: with unspecified complication Qualified Code(s): F10.239 - Alcohol dependence with withdrawal, unspecified Is this a current diagnosis for this admission?: Yes Plan: resolved. (4) Alcoholic encephalopathy Is this a current diagnosis for this admission?: Yes Plan: Her mentation is adequate. She is forgetful and has trouble remembering names but is fully cognizant of what is going on. Thiamine supplements. (5) CHF (congestive heart failure) Qualifiers: Heart failure type: unspecified Heart failure chronicity: unspecified Qualified Code(s): I50.9 - Heart failure, unspecified Is this a current diagnosis for this admission?: Yes Plan: 2D echo (03/25): LV EF 55% with mild concentric LVH. Grade 1/4 diastolic dysfunction. RA mild to moderately dilated. RV mild to moderately dilated. Mild mitral regurgitation, RVSP 50-55mmHg C/w home dose of po lasix. BB on hold for now. (6) Pulmonary hypertension Is this a current diagnosis for this admission?: Yes (7) Septic shock Is this a current diagnosis for this admission?: Yes Plan: Resolved (8) Lung cancer Qualifiers: Laterality: left Lung location: overlapping sites Qualified Code(s): C 34.82 - Malignant neoplasm of overlapping sites of left bronchus and lung Is this a current diagnosis for this admission?: Yes Plan: Outpt f/u with Dr. Robertson - Plan Summary Summary: PT today - Time Time Spent with patient: Less than 15 minutes Anticipated Discharge Disposition: Home, Self Care Anticipated Discharge Timeframe: within 36 hours
[2020-03-29] MEDS ORDERED: PREDNISONE 20 MG TABLET PO ONE (16:15)
--- NOTE | 2020-03-29 20:09 | PDOC CONSULTATION ---
Consultation-Blank Consultation: CARDIOLOGY CONSULTATION by Dr. Cassandra Davis on 03/29/2020. Patient seen at 3:30 PM. 60 minutes spent as patient more than 50% of time spent in direct patient care. CONSULT REQUESTING PHYSICIAN: bobby Charlton hospitalist physician group Reason FOR CONSULTATION: Shortness of Breath and Patient with Right Heart Failure and Pulmonary Hypertension and COPD. HISTORY OF PRESENT ILLNESS: Patient states she does not remember what brought her to the hospital. At present she says she has no chest pain discomfort. Shortness of breath is improved but she still wheezing. She has some orthopnea but no PND. There is mild leg edema. She seems to think the leg edema is improving. She has no chest pain discomfort. There is no palpitations. The chart was reviewed. Although she has a past history of hypertension, recently she has chronic hypotension requiring midodrine to keep her blood pressure up. The patient was admitted on 03/24/2020 after being brought in by EMS due to the patient having altered mental status and sinus bradycardia and initially required inotropes in view of the patient's sinus bradycardia and an hypotension. This was weaned off. The patient was also found to have symptoms of alcohol withdrawal since the patient does have a significant history of alcohol usage. She at present is still wheezing but states she is breathing much better. She has cough which is not productive of any sputum. She has no anginal chest pains. The patient does have a history of hypertension, she has a history of COPD/asthma, history of chronic alcohol abuse, history of tobacco abuse, history of pulmonary hypertension with right heart failure. She denies any syncope, or palpitations. She also has a history of lung cancer and is followed by Dr. Robertson, and states that this is stable. Note on admission the patient is an acute renal insufficiency and the GFR is now improved also on admission the patient's potassium was 5.6 which could cause the patient to have sinus bradycardia along with the patient being on beta-maggy. Past Medical History Cardiac Medical History: Reports: Hx Congestive Heart Failure, Hx Hypertension, Hx Peripheral Vascular Disease Denies: Hx Atrial Fibrillation, Hx Coronary Artery Disease, Hx DVT, Hx Heart Attack, Hx Hypercholesterolemia, Hx Pulmonary Embolism Pulmonary Medical History: Reports: Hx Asthma, Hx Bronchitis, Hx COPD, Hx Pneumonia, Hx Respiratory Failure - Chronic on home O2, Hx Sleep Apnea Neurological Medical History: Denies: Hx Cerebrovascular Accident, Hx Seizures Endocrine Medical History: Denies: Hx Diabetes Mellitus Type 1, Hx Diabetes Mellitus Type 2, Hx Hyperthyroidism, Hx Hypothyroidism Renal/ Medical History: Denies: Hx Peritoneal Dialysis Malignancy Medical History: Reports: Hx Lung Cancer GI Medical History: Reports: Hx Gastroesophageal Reflux Disease. Denies: Hx Cirrhosis, Hx Hepatitis Musculoskeletal Medical History: Reports Hx Arthritis, Denies Hx Fibromyalgia, Reports Hx Gout Skin Medical History: Denies Hx Eczema, Denies Hx Psoriasis Psychiatric Medical History: Reports: Hx Depression Infectious Medical History: Denies: Hx Hepatitis Past Surgical History: Reports: Hx Tubal Ligation, Other - Unilateral salpingectomy, colonoscopy RESUSCITATION STATUS: The patient is a full code. Her is a surrogate healthcare decision maker. Family HISTORY: Is positive for malignancy and hypertension and diabetes mellitus. SOCIAL HISTORY: The patient does have a history of alcohol abuse. The patient is a smoker. She denies any street drug abuse. Albuterol Sulfate [Albuterol Sulfate Hfa] 1 puff IH Q6HP PRN 09/04/19 Tussionex 5 ml PO Q8HP PRN 09/04/19 Hydroxyzine Pamoate [Vistaril 50 mg Capsule] 50 mg PO TID 12/26/19 Pantoprazole Sodium [Protonix [address] Tablet] 40 mg PO QAM 03/02/20 Fluticasone/Salmeterol [Advair 500-50 Diskus 14 Dose/Diskus] 1 inh IH Q12 03/25/20 Nicotine [Nicoderm 21 mg/24 Hr Transderm Patch] 1 each TD DAILYP PRN 03/25/20 REVIEW OF SYSTEMS: Constitutional complains of generalized fatigue. Denies any fever chills or rigors. HEAD: Denies headaches or head injury. EYES: The patient earlier this admission had visual hallucinations. At present there is no amaurosis fugax or diplopia or amblyopia. EARS: The patient earlier this admission had auditory hallucinations. At present no such hallucinations. She has no tinnitus. There is no vertigo. NOSE: No history of hayfever. No history of nosebleeds. MOUTH: No history of altered taste sensation. SKIN: There is no skin rashes. There is no pruritus. There is no LH discoloration skin. THROAT: There is no dysphagia or odynophagia. LUNGS: History of wheezing present history of dry cough. The patient has a history of COPD. History of asthma. No history of pulmonary embolism. She has a history of lung cancer which she states is controlled. She states that this lung cancer is in remission. HEART: History of hypertension present. History of right heart failure present due to moderate pulmonary hypertension. No history of VA or anginal symptoms. Does have leg edema. She denies at present orthopnea PND. There is no palpitations syncope. GI: Denies history of GI bleed or esophageal varices. No history of fatty food intolerance. No history of altered bowel movements. No history of GI bleed. ENDOCRINE: No history of polydipsia poly uria. No history of heat or cold intolerance. 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 No severe headaches migraines or seizures. RENAL: No history of chronic kidney disease. No symptoms of UTI. No hematuria pyuria or dysuria. PSYCHIATRIC: History of alcoholism present. No history of anxiety. No history of suicidal ideation or homicidal ideation. Does have a history of depression. MUSCULOSKELETAL: Complains of arthritis but no collagen-vascular disease. Current Medications Generic Name Dose Route Start Last Admin Trade Name Freq PRN Reason Stop Dose Admin Acetaminophen 975 mg 03/28/20 10:51 03/29/20 05:06 Acetaminophen 325 Mg Tablet PO 04/27/20 10:50 975 mg Q6HP PRN Administration PAIN Albuterol/Ipratropium 3 ml 03/25/20 02:00 03/29/20 14:20 Ipratropium/Albuterol 0.5-2.5 Mg/3 Ml Ampul NEB 04/24/20 01:59 3 ml RTQ6 TAWANA Administration Buprenorphine HCl 6 mg 03/29/20 10:00 03/29/20 10:25 Buprenorphine Hcl 2 Mg Sublingual Tablet SL 04/05/20 09:59 6 mg Q12 TAWANA Administration Collagenase 1 applic 03/26/20 16:00 03/29/20 10:26 Collagenase Clostridium Hist. Oint 30 Gm TOP 04/25/20 15:59 1 applic DAILY TAWANA Administration Docusate Sodium 100 mg 03/29/20 10:00 03/29/20 10:24 Docusate Sodium 100 Mg Capsule PO 04/28/20 09:59 Not Given DAILY TAWANA Fluticasone/Vilanterol 1 inh 03/29/20 10:00 03/29/20 10:55 Fluticasone/Vilanterol 200-25 Mcg/Dose IH 04/28/20 09:59 1 inhaler DAILY TAWANA Administration Folic Acid 1 mg 03/29/20 10:00 03/29/20 10:24 Folic Acid 1 Mg Tablet PO 04/28/20 09:59 1 mg DAILY TAWANA Administration Furosemide 20 mg 03/30/20 10:00 Furosemide 20 Mg Tablet PO 04/29/20 09:59 DAILY TAWANA Guaifenesin 200 mg 03/28/20 14:07 03/29/20 17:18 Guaifenesin Syrp 200 Mg/10 Ml Udc PO 04/27/20 14:06 200 mg QIDP PRN Administration COUGH Heparin Sodium (Porcine) 5,000 unit 03/24/20 23:45 03/29/20 14:00 Heparin Sod (Porcine) 5,000 Unit/Ml 1 Ml Vial SUBCUT 04/23/20 23:44 Not Given Q8 TAWANA Vancomycin HCl 1,000 mg/ 250 mls @ 166.667 mls/hr 03/26/20 16:00 03/29/20 17:17 Dextrose IV 04/02/20 15:59 166.6 mls/hr Q12A TAWANA 166.6 mls/hr Administration Midodrine 5 mg 03/28/20 18:00 03/29/20 17:18 Midodrine Hcl 5 Mg Tablet PO 04/27/20 17:59 5 mg TID TAWANA Administration Multivitamins 1 tab 03/29/20 10:00 03/29/20 10:24 Multivitamin Tablet PO 04/28/20 09:59 1 tab DAILY TAWANA Administration Nicotine 1 each 03/28/20 17:12 Nicotine 21 Mg/24 Hr Patch.Td24 TD 04/27/20 17:11 DAILYP PRN SMOKING CESSATION Pantoprazole Sodium 40 mg 03/24/20 23:45 03/29/20 10:24 Pantoprazole Sodium 40 Mg Vial IV 03/31/20 23:44 40 mg Q12 TAWANA Administration Potassium Chloride 20 meq 03/29/20 10:00 03/29/20 10:24 Potassium Chloride 10 Meq Tablet.Er PO 04/28/20 09:59 20 meq DAILY TAWANA Administration Prednisone 40 mg 03/30/20 10:00 Prednisone 20 Mg Tablet PO 04/29/20 09:59 DAILY TAWANA Risperidone 0.25 mg 03/28/20 18:00 03/29/20 17:18 Risperidone 0.5 Mg Tab.Rapdis PO 04/27/20 17:59 0.25 mg BID TAWANA Administration Sodium Chloride 2.5 ml 03/26/20 22:00 03/29/20 14:38 Normal Saline Flush 2.5 Ml Disp.Syrin IV 04/25/20 21:59 2.5 ml Q8 TAWANA Administration Thiamine HCl 100 mg 03/29/20 10:00 03/29/20 10:24 Thiamine Hcl 100 Mg Tablet PO 04/28/20 09:59 100 mg DAILY TAWANA Administration Tramadol HCl 50 mg 03/29/20 15:44 Tramadol Hcl 50 Mg Tablet PO 04/05/20 15:43 Q8HP PRN FOR PAIN SCALE 4-5 Discontinued Medications Generic Name Dose Route Start Last Admin Trade Name Freq PRN Reason Stop Dose Admin Buprenorphine HCl 6 mg 03/28/20 22:00 Buprenorphine Hcl 2 Mg Sublingual Tablet SL 04/04/20 21:59 Q12 TAWANA Buprenorphine HCl 6 mg 03/28/20 17:16 03/28/20 18:41 Buprenorphine Hcl 2 Mg Sublingual Tablet SL 03/28/20 17:17 6 mg NOW ONE Administration Fluticasone/Vilanterol 1 inh 03/29/20 08:00 03/29/20 09:17 Fluticasone/Vilanterol 200-25 Mcg/Dose 04/28/20 07:59 Not Given RTDAILY TAWANA Fluticasone/Vilanterol 1 inh 03/28/20 17:15 03/28/20 18:43 Fluticasone/Vilanterol 200-25 Mcg/Dose 03/28/20 17:16 Not Given NOW ONE Furosemide 20 mg 03/26/20 15:00 03/26/20 21:01 Furosemide Inj/Pf 20 Mg/2 Ml Sdv IV 03/26/20 22:01 20 mg Q12 TAWANA Administration Furosemide Confirm 03/27/20 08:40 03/27/20 09:48 Furosemide Inj/Pf 40 Mg/4 Ml Sdv Administered 03/27/20 08:41 Not Given Dose 40 mg .ROUTE .STK-MED ONE Furosemide 40 mg 03/27/20 09:45 03/27/20 09:05 Furosemide Inj/Pf 40 Mg/4 Ml Sdv IV 03/27/20 09:46 40 mg NOW ONE Administration Furosemide 20 mg 03/28/20 17:15 03/28/20 17:32 Furosemide 20 Mg Tablet PO 04/27/20 17:14 Not Given DAILY TAWANA Furosemide 20 mg 03/28/20 17:21 03/28/20 18:41 Furosemide Inj/Pf 20 Mg/2 Ml Sdv IV 03/28/20 17:22 20 mg NOW ONE Administration Haloperidol Lactate Confirm 03/26/20 14:20 03/26/20 14:37 Haloperidol Lactate Inj 5 Mg/1 Ml Vial Administered 03/26/20 14:21 Not Given Dose 5 mg .ROUTE .STK-MED ONE Haloperidol Lactate 2.5 mg 03/26/20 14:28 03/27/20 21:42 Haloperidol Lactate Inj 5 Mg/1 Ml Vial IV 04/25/20 14:27 2.5 mg Q6HP PRN Administration RESTLESSNESS/AGITATION Lactated Ringer's 1,000 mls @ 0 mls/hr 03/24/20 20:22 03/24/20 21:10 Lactated Ringers 1000 Ml Iv Soln IV 03/24/20 20:23 Infused BOLUS ONE Infusion Wide Open Lactated Ringer's 1,000 mls @ 0 mls/hr 03/24/20 20:58 03/24/20 21:45 Lactated Ringers 1000 Ml Iv Soln IV 03/24/20 20:59 Infused BOLUS ONE Infusion Wide Open Norepinephrine Bitartrate 4 mg 250 mls @ 0 mls/hr 03/24/20 22:06 03/25/20 23:41 / Dextrose IV 04/23/20 22:05 0 mcg/min CONTINUOUS PRN 0 mls/hr THIS MED IS NOT "PRN" Titration Protocol Titrate Dextrose/Sodium Chloride 1,000 mls @ 100 mls/hr 03/25/20 01:20 03/28/20 17:32 D5-1/2ns 1000 Ml Iv Soln IV 04/24/20 01:19 Infused CONTINUOUS PRN Infusion THIS MED IS NOT "PRN" Dopamine HCl/Dextrose Confirm 03/25/20 11:26 03/25/20 13:02 Dopamine Rtu 800 Mg-D5w 250 Ml (Adult) Premix Administered 03/25/20 11:27 Not Given Dose 800 mg in 250 mls @ ud IV .STK-MED ONE Dopamine HCl/Dextrose 800 mg in 250 mls @ 7.134 mls/hr 03/25/20 12:40 03/27/20 02:15 Dopamine Rtu 800 Mg-D5w 250 Ml (Adult) Premix IV 04/24/20 12:39 0 mcg/kg/min CONTINUOUS PRN 0 mls/hr THIS MED IS NOT "PRN" Titration Protocol 5 MCG/KG/MIN Dexmedetomidine/Sodium Chloride Confirm 03/26/20 14:21 03/26/20 14:37 Precedex 400 Mcg/Ns 100 Ml Iv Premix Administered 03/26/20 14:22 Not Given Dose 400 mcg in 100 mls @ ud IV .STK-MED ONE Dexmedetomidine/Sodium Chloride 400 mcg in 100 mls @ 7.74 mls/hr 03/26/20 14:26 03/26/20 23:15 Precedex 400 Mcg/Ns 100 Ml Iv Premix IV 04/25/20 14:25 0 mcg/kg/hr CONTINUOUS PRN 0 mls/hr THIS MED IS NOT "PRN" Titration Protocol 0.4 MCG/KG/HR Ceftriaxone Sodium/Dextrose 1 gm in 50 mls @ 100 mls/hr 03/26/20 18:00 03/27/20 18:31 Rocephin Rtu 1 Gm/D5w 50 Ml Premix IV 04/02/20 17:59 Infused QPM TAWANA Infusion Norepinephrine Bitartrate Confirm 03/24/20 22:08 03/24/20 22:18 Norepinephrine Bitartrate Inj/Pf 4 Mg/4 Ml Sdv Administered 03/24/20 22:09 Not Given Dose 4 mg IV .STK-MED ONE Norepinephrine Bitartrate Confirm 03/25/20 06:48 03/25/20 06:55 Norepinephrine Bitartrate Inj/Pf 4 Mg/4 Ml Sdv Administered 03/25/20 06:49 Not Given Dose 4 mg IV .STK-MED ONE Phenobarbital 129.6 mg 03/27/20 13:17 03/27/20 15:39 Phenobarbital 64.8 Mg Tablet PO 04/26/20 13:16 129.6 mg Q1HP PRN Administration ANXIETY/AGITATION Phenobarbital 258.4 mg 03/27/20 13:17 Phenobarbital 64.8 Mg Tablet PO 04/26/20 13:16 Q1HP PRN ANXIETY/AGITATION Phenobarbital Sodium Confirm 03/26/20 14:22 03/26/20 15:55 Phenobarbital Inj 65 Mg/Ml Vial Administered 03/26/20 14:23 Not Given Dose 65 mg .ROUTE .STK-MED ONE Phenobarbital Sodium 260 mg 03/26/20 14:24 Phenobarbital Inj 65 Mg/Ml Vial IV 04/25/20 14:23 Q1HP PRN ANXIETY/AGITATION Phenobarbital Sodium 130 mg 03/26/20 14:24 03/27/20 10:05 Phenobarbital Inj 65 Mg/Ml Vial IV 04/25/20 14:23 130 mg Q1HP PRN Administration ANXIETY/AGITATION Phenobarbital Sodium 260 mg 03/26/20 16:30 03/26/20 14:35 Phenobarbital Inj 65 Mg/Ml Vial IV 03/26/20 16:31 260 mg NOW ONE Administration Prednisone 40 mg 03/29/20 16:15 03/29/20 17:17 Prednisone 20 Mg Tablet PO 03/29/20 16:16 40 mg NOW ONE Administration Risperidone Confirm 03/28/20 21:16 03/28/20 22:12 Risperidone 0.5 Mg Tab.Rapdis Administered 03/28/20 21:17 Not Given Dose 0.5 mg .ROUTE .STK-MED ONE Sodium Chloride 2.5 ml 03/24/20 23:45 03/26/20 13:37 Normal Saline Flush 2.5 Ml Disp.Syrin IV 04/23/20 23:44 Not Given Q8 TAWANA Physical EXAMINATION: The patient is of appears to be chronically ill and malnourished. At present in mild respiratory distress. Selected Entries 03/29/20 15:30 Temperature 97.6 F Temperature Oral Source Pulse Rate 102 H Respiratory 20 Rate Blood Pressure 102/56 L Blood Pressure 71 Mean BP Location Left Arm BP Position Sitting O2 Sat by Pulse 90 L Oximetry Oxygen Flow 3.00 Rate Oxygen Delivery Nasal Cannula HEAD: Is atraumatic normocephalic. EYES: Pupils equal round regular reactive to light accommodation. Extraocular movements are normal. There is no conjunctival pallor. There is no scleral icterus. EARS: Tympanic membranes are intact. External auditory canals are clear. MOUTH: Mucous membranes of mouth are moist. Tongue is moist. There is no ulcers. THROAT: There is no redness of the oropharynx. There is no exudates. NECK: There is no JVD carotids are equal there is no bruit there is no lymphadenopathy. There is no goiter. LUNGS: There is bilateral scattered rhonchi and bilateral wheezing. No rales of CHF. HEART: S1-S2 is heard there is no S3 gallop there is no S4 gallop. There is systolic murmur left sternal border and the apex there is no rub. ABDOMEN: Soft nontender there is no paraspinal megaly. Bowel sounds are well heard. EXTREMITIES: Femorals are diminished. There is no femoral bruits leg pulses are diminished. There is mild pedal edema bilaterally. There is no DVT or cellulitis. There is no calf tenderness. There is no cyanosis or clubbing. C NS: The patient is conscious awake alert oriented x3 with no focal deficit. PSYCHIATRIC: The patient mentation is slightly slow but his judgment insight are intact. Affect is normal. The patient's admission EKG shows sinus bradycardia nonspecific IVCD. Low voltage throughout. The patient EKG on shows sinus rhythm low voltage in the frontal leads. The patient's echocardiogram on 03/25/20 showed interpreted by me shows low normal left ventricle ejection fraction 55%. There seems to be underestimation of the right ventricle systolic pressure but with the current values there is at least moderate pulmonary hypertension. [Please see report]. Labs- Entire Visit 03/24/20 03/24/20 03/24/20 20:10 20:10 20:10 WBC 4.9 RBC 3.35 L Hgb 10.8 L Hct 33.4 L MCV 100 H MCH 32.3 MCHC 32.4 RDW 19.4 H Plt Count 175 Lymph % (Auto) 14.1 Union % (Auto) 9.7 Eos % (Auto) 1.9 Baso % (Auto) 0.3 Absolute Neuts (auto) 3.7 Absolute Lymphs (auto) 0.7 Absolute Monos (auto) 0.5 Absolute Eos (auto) 0.1 Absolute Basos (auto) 0.0 Seg Neutrophils % 74.0 PT INR APTT Carbonic Acid HCO3/H2CO3 Ratio ABG pH ABG pCO2 ABG pO2 ABG HCO3 ABG Total CO2 ABG O2 Saturation ABG Base Excess FiO2 Sodium 130.6 L Potassium 5.6 H Chloride 101 Carbon Dioxide 24 Anion Gap 6 BUN 52 H Creatinine 1.62 H Est GFR ( Amer) 39 L Est GFR (Non-Af Amer) Est GFR (MDRD) Non-Af 33 L Glucose 79 POC Glucose Lactic Acid 1.3 Calcium 9.2 Phosphorus 7.6 H Magnesium 3.6 H Total Bilirubin 0.4 Direct Bilirubin 0.3 Neonat Total Bilirubin Not Reportable Neonat Direct Bilirubin Not Reportable Neonat Indirect Bili Not Reportable AST 27 ALT 9 Alkaline Phosphatase 155 H Ammonia Creatine Kinase Troponin I C-Reactive Protein 61.5 H NT-Pro-B Natriuret Pep Total Protein 7.3 Albumin 3.2 L Amylase Lipase EGFR TSH Free T4 Random Cortisol Urine Color Urine Appearance Urine pH Ur Specific [place] Urine Protein Urine Glucose (UA) Urine Ketones Urine Blood Urine Nitrite Urine Bilirubin Urine Urobilinogen Ur Leukocyte Esterase Urine WBC (Auto) Urine RBC (Auto) U Hyaline Cast (Auto) Squamous Epi Cells Auto Urine Mucus (Auto) Urine Ascorbic Acid Time Trough Drawn Vancomycin Trough Urine Opiates Screen Urine Methadone Screen Ur Barbiturates Screen Ur Phencyclidine Scrn Ur Amphetamines Screen U Benzodiazepines Scrn Urine Cocaine Screen U Marijuana (THC) Screen Serum Alcohol < 10 03/24/20 03/24/20 03/24/20 20:10 20:10 20:10 WBC RBC Hgb Hct MCV MCH MCHC RDW Plt Count Lymph % (Auto) [place] % (Auto) Eos % (Auto) Baso % (Auto) Absolute Neuts (auto) Absolute Lymphs (auto) Absolute Monos (auto) Absolute Eos (auto) Absolute Basos (auto) Seg Neutrophils % PT INR APTT Carbonic Acid HCO3/H2CO3 Ratio ABG pH ABG pCO2 ABG pO2 ABG HCO3 ABG Total CO2 ABG O2 Saturation ABG Base Excess FiO2 Sodium Potassium Chloride Carbon Dioxide Anion Gap BUN Creatinine Est GFR ( Amer) Est GFR (Non-Af Amer) Est GFR (MDRD) Non-Af Glucose POC Glucose Lactic Acid Calcium Phosphorus Magnesium Total Bilirubin Direct Bilirubin Neonat Total Bilirubin Neonat Direct Bilirubin Neonat Indirect Bili AST ALT Alkaline Phosphatase Ammonia Creatine Kinase 32 Troponin I 0.097 C-Reactive Protein NT-Pro-B Natriuret Pep 2480 H Total Protein Albumin Amylase Lipase EGFR TSH 4.77 H Free T4 1.09 Random Cortisol Urine Color Urine Appearance Urine pH Ur Specific [place] Urine Protein Urine Glucose (UA) Urine Ketones Urine Blood Urine Nitrite Urine Bilirubin Urine Urobilinogen Ur Leukocyte Esterase Urine WBC (Auto) Urine RBC (Auto) U Hyaline Cast (Auto) Squamous Epi Cells Auto Urine Mucus (Auto) Urine Ascorbic Acid Time Trough Drawn Vancomycin Trough Urine Opiates Screen Urine Methadone Screen Ur Barbiturates Screen Ur Phencyclidine Scrn Ur Amphetamines Screen U Benzodiazepines Scrn Urine Cocaine Screen U Marijuana (THC) Screen Serum Alcohol 03/24/20 03/24/20 03/24/20 20:15 20:15 21:10 WBC RBC Hgb Hct MCV MCH MCHC RDW Plt Count Lymph % (Auto) [place] % (Auto) Eos % (Auto) Baso % (Auto) Absolute Neuts (auto) Absolute Lymphs (auto) Absolute Monos (auto) Absolute Eos (auto) Absolute Basos (auto) Seg Neutrophils % PT INR APTT Carbonic Acid 1.56 H HCO3/H2CO3 Ratio 13:1 ABG pH 7.24 L ABG pCO2 51.7 H ABG pO2 84.5 ABG HCO3 21.5 ABG Total CO2 23.0 ABG O2 Saturation 94.5 ABG Base Excess -6.0 FiO2 36% Sodium Potassium Chloride Carbon Dioxide Anion Gap BUN Creatinine Est GFR ( Amer) Est GFR (Non-Af Amer) Est GFR (MDRD) Non-Af Glucose POC Glucose Lactic Acid Calcium Phosphorus Magnesium Total Bilirubin Direct Bilirubin Neonat Total Bilirubin Neonat Direct Bilirubin Neonat Indirect Bili AST ALT Alkaline Phosphatase Ammonia Creatine Kinase Troponin I C-Reactive Protein NT-Pro-B Natriuret Pep Total Protein Albumin Amylase Lipase EGFR TSH Free T4 Random Cortisol Urine Color YELLOW Urine Appearance SLIGHTLY-CLOUDY Urine pH 5.0 Ur Specific [place] 1.019 Urine Protein NEGATIVE Urine Glucose (UA) NEGATIVE Urine Ketones NEGATIVE Urine Blood NEGATIVE Urine Nitrite NEGATIVE Urine Bilirubin NEGATIVE Urine Urobilinogen NEGATIVE Ur Leukocyte Esterase NEGATIVE Urine WBC (Auto) 1 Urine RBC (Auto) 0 U Hyaline Cast (Auto) 30 Squamous Epi Cells Auto 1 Urine Mucus (Auto) RARE Urine Ascorbic Acid NEGATIVE Time Trough Drawn Vancomycin Trough Urine Opiates Screen UNCONFIRMED POSITIVE Urine Methadone Screen NEGATIVE Ur Barbiturates Screen NEGATIVE Ur Phencyclidine Scrn NEGATIVE Ur Amphetamines Screen NEGATIVE U Benzodiazepines Scrn NEGATIVE Urine Cocaine Screen NEGATIVE U Marijuana (THC) Screen NEGATIVE Serum Alcohol 03/24/20 03/25/20 03/25/20 23:10 02:47 02:47 WBC 4.8 RBC 3.49 L Hgb 11.3 L Hct 34.1 L MCV 98 H MCH 32.4 MCHC 33.1 RDW 18.7 H Plt Count 170 Lymph % (Auto) 10.7 L [place] % (Auto) 10.5 Eos % (Auto) 1.2 Baso % (Auto) 0.4 Absolute Neuts (auto) 3.7 Absolute Lymphs (auto) 0.5 Absolute Monos (auto) 0.5 Absolute Eos (auto) 0.1 Absolute Basos (auto) 0.0 Seg Neutrophils % 77.2 PT INR APTT Carbonic Acid HCO3/H2CO3 Ratio ABG pH ABG pCO2 ABG pO2 ABG HCO3 ABG Total CO2 ABG O2 Saturation ABG Base Excess FiO2 Sodium Potassium Chloride Carbon Dioxide Anion Gap BUN Creatinine Est GFR ( Amer) Est GFR (Non-Af Amer) Est GFR (MDRD) Non-Af Glucose POC Glucose 81 Lactic Acid Calcium Phosphorus Magnesium Total Bilirubin Direct Bilirubin Neonat Total Bilirubin Neonat Direct Bilirubin Neonat Indirect Bili AST ALT Alkaline Phosphatase Ammonia Creatine Kinase Troponin I 0.114 C-Reactive Protein NT-Pro-B Natriuret Pep Total Protein Albumin Amylase Lipase EGFR TSH Free T4 Random Cortisol Urine Color Urine Appearance Urine pH Ur Specific [place] Urine Protein Urine Glucose (UA) Urine Ketones Urine Blood Urine Nitrite Urine Bilirubin Urine Urobilinogen Ur Leukocyte Esterase Urine WBC (Auto) Urine RBC (Auto) U Hyaline Cast (Auto) Squamous Epi Cells Auto Urine Mucus (Auto) Urine Ascorbic Acid Time Trough Drawn Vancomycin Trough Urine Opiates Screen Urine Methadone Screen Ur Barbiturates Screen Ur Phencyclidine Scrn Ur Amphetamines Screen U Benzodiazepines Scrn Urine Cocaine Screen U Marijuana (THC) Screen Serum Alcohol 03/25/20 03/25/20 03/25/20 02:47 02:47 02:47 WBC RBC Hgb Hct MCV MCH MCHC RDW Plt Count Lymph % (Auto) [place] % (Auto) Eos % (Auto) Baso % (Auto) Absolute Neuts (auto) Absolute Lymphs (auto) Absolute Monos (auto) Absolute Eos (auto) Absolute Basos (auto) Seg Neutrophils % PT 14.9 INR 1.14 APTT 39.3 H Carbonic Acid HCO3/H2CO3 Ratio ABG pH ABG pCO2 ABG pO2 ABG HCO3 ABG Total CO2 ABG O2 Saturation ABG Base Excess FiO2 Sodium 132.9 L Potassium 5.9 H Chloride 103 Carbon Dioxide 22 Anion Gap 8 BUN 49 H Creatinine 1.42 H Est GFR ( Amer) 46 L Est GFR (Non-Af Amer) Est GFR (MDRD) Non-Af 38 L Glucose 93 POC Glucose Lactic Acid Calcium 9.2 Phosphorus Magnesium Total Bilirubin 0.4 Direct Bilirubin 0.3 Neonat Total Bilirubin Not Reportable Neonat Direct Bilirubin Not Reportable Neonat Indirect Bili Not Reportable AST 19 ALT 9 Alkaline Phosphatase 151 H Ammonia Creatine Kinase Troponin I C-Reactive Protein NT-Pro-B Natriuret Pep 2080 H Total Protein 6.8 Albumin 3.0 L Amylase 40 Lipase 202.5 EGFR TSH Free T4 Random Cortisol Urine Color Urine Appearance Urine pH Ur Specific [place] Urine Protein Urine Glucose (UA) Urine Ketones Urine Blood Urine Nitrite Urine Bilirubin Urine Urobilinogen Ur Leukocyte Esterase Urine WBC (Auto) Urine RBC (Auto) U Hyaline Cast (Auto) Squamous Epi Cells Auto Urine Mucus (Auto) Urine Ascorbic Acid Time Trough Drawn Vancomycin Trough Urine Opiates Screen Urine Methadone Screen Ur Barbiturates Screen Ur Phencyclidine Scrn Ur Amphetamines Screen U Benzodiazepines Scrn Urine Cocaine Screen U Marijuana (THC) Screen Serum Alcohol 03/25/20 03/25/20 03/25/20 02:55 04:15 04:15 WBC RBC Hgb Hct MCV MCH MCHC RDW Plt Count Lymph % (Auto) [place] % (Auto) Eos % (Auto) Baso % (Auto) Absolute Neuts (auto) Absolute Lymphs (auto) Absolute Monos (auto) Absolute Eos (auto) Absolute Basos (auto) Seg Neutrophils % PT INR APTT Carbonic Acid 1.59 H HCO3/H2CO3 Ratio 14:1 ABG pH 7.25 L ABG pCO2 52.9 H ABG pO2 74.4 L ABG HCO3 22.7 ABG Total CO2 24.4 ABG O2 Saturation 92.5 L ABG Base Excess -4.7 FiO2 4L Sodium Potassium Chloride Carbon Dioxide Anion Gap BUN Creatinine Est GFR ( Amer) Est GFR (Non-Af Amer) Est GFR (MDRD) Non-Af Glucose POC Glucose Lactic Acid Calcium Phosphorus Magnesium Total Bilirubin Direct Bilirubin Neonat Total Bilirubin Neonat Direct Bilirubin Neonat Indirect Bili AST ALT Alkaline Phosphatase Ammonia 25.3 Creatine Kinase Troponin I C-Reactive Protein NT-Pro-B Natriuret Pep Total Protein Albumin Amylase Lipase EGFR TSH Free T4 Random Cortisol 36.70 Urine Color Urine Appearance Urine pH Ur Specific [place] Urine Protein Urine Glucose (UA) Urine Ketones Urine Blood Urine Nitrite Urine Bilirubin Urine Urobilinogen Ur Leukocyte Esterase Urine WBC (Auto) Urine RBC (Auto) U Hyaline Cast (Auto) Squamous Epi Cells Auto Urine Mucus (Auto) Urine Ascorbic Acid Time Trough Drawn Vancomycin Trough Urine Opiates Screen Urine Methadone Screen Ur Barbiturates Screen Ur Phencyclidine Scrn Ur Amphetamines Screen U Benzodiazepines Scrn Urine Cocaine Screen U Marijuana (THC) Screen Serum Alcohol 03/25/20 03/25/20 03/26/20 08:06 14:42 04:11 WBC 6.0 RBC 3.55 L Hgb 11.4 L Hct 34.5 L MCV 97 MCH 32.1 MCHC 33.1 RDW 18.5 H Plt Count 159 Lymph % (Auto) 19.0 Union % (Auto) 10.2 Eos % (Auto) 0.2 Baso % (Auto) 0.3 Absolute Neuts (auto) 4.2 Absolute Lymphs (auto) 1.1 Absolute Monos (auto) 0.6 Absolute Eos (auto) 0.0 Absolute Basos (auto) 0.0 Seg Neutrophils % 70.3 PT INR APTT Carbonic Acid HCO3/H2CO3 Ratio ABG pH ABG pCO2 ABG pO2 ABG HCO3 ABG Total CO2 ABG O2 Saturation ABG Base Excess FiO2 Sodium Potassium Chloride Carbon Dioxide Anion Gap BUN Creatinine Est GFR ( Amer) Est GFR (Non-Af Amer) Est GFR (MDRD) Non-Af Glucose POC Glucose Lactic Acid Calcium Phosphorus Magnesium Total Bilirubin Direct Bilirubin Neonat Total Bilirubin Neonat Direct Bilirubin Neonat Indirect Bili AST ALT Alkaline Phosphatase Ammonia Creatine Kinase Troponin I 0.134 0.166 C-Reactive Protein NT-Pro-B Natriuret Pep Total Protein Albumin Amylase Lipase EGFR TSH Free T4 Random Cortisol Urine Color Urine Appearance Urine pH Ur Specific [place] Urine Protein Urine Glucose (UA) Urine Ketones Urine Blood Urine Nitrite Urine Bilirubin Urine Urobilinogen Ur Leukocyte Esterase Urine WBC (Auto) Urine RBC (Auto) U Hyaline Cast (Auto) Squamous Epi Cells Auto Urine Mucus (Auto) Urine Ascorbic Acid Time Trough Drawn Vancomycin Trough Urine Opiates Screen Urine Methadone Screen Ur Barbiturates Screen Ur Phencyclidine Scrn Ur Amphetamines Screen U Benzodiazepines Scrn Urine Cocaine Screen U Marijuana (THC) Screen Serum Alcohol 03/26/20 03/26/20 03/26/20 04:11 04:11 18:57 WBC RBC Hgb Hct MCV MCH MCHC RDW Plt Count Lymph % (Auto) Union % (Auto) Eos % (Auto) Baso % (Auto) Absolute Neuts (auto) Absolute Lymphs (auto) Absolute Monos (auto) Absolute Eos (auto) Absolute Basos (auto) Seg Neutrophils % PT INR APTT Carbonic Acid HCO3/H2CO3 Ratio ABG pH ABG pCO2 ABG pO2 ABG HCO3 ABG Total CO2 ABG O2 Saturation ABG Base Excess FiO2 Sodium 134.6 L Potassium 5.6 H Chloride 102 Carbon Dioxide 26 Anion Gap 7 BUN 31 H Creatinine 0.59 Est GFR ( Amer) > 60 Est GFR (Non-Af Amer) Est GFR (MDRD) Non-Af > 60 Glucose 76 POC Glucose 77 Lactic Acid Calcium 9.4 Phosphorus 4.3 Magnesium 2.9 H Total Bilirubin 0.6 Direct Bilirubin 0.4 Neonat Total Bilirubin Not Reportable Neonat Direct Bilirubin Not Reportable Neonat Indirect Bili Not Reportable AST 28 ALT 8 Alkaline Phosphatase 153 H Ammonia Creatine Kinase Troponin I C-Reactive Protein NT-Pro-B Natriuret Pep 3290 H Total Protein 7.3 Albumin 3.1 L Amylase Lipase EGFR TSH Free T4 Random Cortisol Urine Color Urine Appearance Urine pH Ur Specific [place] Urine Protein Urine Glucose (UA) Urine Ketones Urine Blood Urine Nitrite Urine Bilirubin Urine Urobilinogen Ur Leukocyte Esterase Urine WBC (Auto) Urine RBC (Auto) U Hyaline Cast (Auto) Squamous Epi Cells Auto Urine Mucus (Auto) Urine Ascorbic Acid Time Trough Drawn Vancomycin Trough Urine Opiates Screen Urine Methadone Screen Ur Barbiturates Screen Ur Phencyclidine Scrn Ur Amphetamines Screen U Benzodiazepines Scrn Urine Cocaine Screen U Marijuana (THC) Screen Serum Alcohol 03/27/20 03/27/20 03/27/20 04:10 04:10 04:10 WBC 7.8 RBC 3.29 L Hgb 10.6 L Hct 31.6 L MCV 96 MCH 32.3 MCHC 33.7 RDW 18.3 H Plt Count 153 Lymph % (Auto) 10.6 L [place] % (Auto) 5.6 Eos % (Auto) 0.0 Baso % (Auto) 0.3 Absolute Neuts (auto) 6.5 Absolute Lymphs (auto) 0.8 Absolute Monos (auto) 0.4 Absolute Eos (auto) 0.0 Absolute Basos (auto) 0.0 Seg Neutrophils % 83.5 H PT INR APTT Carbonic Acid HCO3/H2CO3 Ratio ABG pH ABG pCO2 ABG pO2 ABG HCO3 ABG Total CO2 ABG O2 Saturation ABG Base Excess FiO2 Sodium 135.1 L Potassium 4.5 D Chloride 96 L Carbon Dioxide 30 Anion Gap 9 BUN 12 Creatinine 0.42 L Est GFR ( Amer) > 60 Est GFR (Non-Af Amer) Est GFR (MDRD) Non-Af > 60 Glucose 73 L POC Glucose Lactic Acid Calcium 9.4 Phosphorus Magnesium Total Bilirubin 0.7 Direct Bilirubin 0.3 Neonat Total Bilirubin Not Reportable Neonat Direct Bilirubin Not Reportable Neonat Indirect Bili Not Reportable AST 21 ALT 8 Alkaline Phosphatase 154 H Ammonia Creatine Kinase Troponin I C-Reactive Protein NT-Pro-B Natriuret Pep 6880 H Total Protein 6.8 Albumin 2.9 L Amylase Lipase EGFR TSH Free T4 Random Cortisol Urine Color Urine Appearance Urine pH Ur Specific [place] Urine Protein Urine Glucose (UA) Urine Ketones Urine Blood Urine Nitrite Urine Bilirubin Urine Urobilinogen Ur Leukocyte Esterase Urine WBC (Auto) Urine RBC (Auto) U Hyaline Cast (Auto) Squamous Epi Cells Auto Urine Mucus (Auto) Urine Ascorbic Acid Time Trough Drawn Vancomycin Trough Urine Opiates Screen Urine Methadone Screen Ur Barbiturates Screen Ur Phencyclidine Scrn Ur Amphetamines Screen U Benzodiazepines Scrn Urine Cocaine Screen U Marijuana (THC) Screen Serum Alcohol 03/28/20 03/28/20 03/28/20 05:42 05:42 10:40 WBC 7.1 RBC 3.53 L Hgb 11.3 L Hct 34.1 L MCV 97 MCH 31.9 MCHC 33.0 RDW 18.0 H Plt Count 139 L Lymph % (Auto) 17.2 [place] % (Auto) 8.4 Eos % (Auto) 0.6 Baso % (Auto) 0.5 Absolute Neuts (auto) 5.2 Absolute Lymphs (auto) 1.2 Absolute Monos (auto) 0.6 Absolute Eos (auto) 0.0 Absolute Basos (auto) 0.0 Seg Neutrophils % 73.3 PT INR APTT Carbonic Acid HCO3/H2CO3 Ratio ABG pH ABG pCO2 ABG pO2 ABG HCO3 ABG Total CO2 ABG O2 Saturation ABG Base Excess FiO2 Sodium Potassium Chloride Carbon Dioxide Anion Gap BUN Creatinine 0.38 L Est GFR ( Amer) > 60 Est GFR (Non-Af Amer) Est GFR (MDRD) Non-Af > 60 Glucose POC Glucose Lactic Acid Calcium Phosphorus Magnesium Total Bilirubin Direct Bilirubin Neonat Total Bilirubin Neonat Direct Bilirubin Neonat Indirect Bili AST ALT Alkaline Phosphatase Ammonia Creatine Kinase Troponin I C-Reactive Protein NT-Pro-B Natriuret Pep Total Protein Albumin Amylase Lipase EGFR TSH Free T4 Random Cortisol Urine Color Urine Appearance Urine pH Ur Specific [place] Urine Protein Urine Glucose (UA) Urine Ketones Urine Blood Urine Nitrite Urine Bilirubin Urine Urobilinogen Ur Leukocyte Esterase Urine WBC (Auto) Urine RBC (Auto) U Hyaline Cast (Auto) Squamous Epi Cells Auto Urine Mucus (Auto) Urine Ascorbic Acid Time Trough Drawn 0542 Vancomycin Trough 12.2 Urine Opiates Screen Urine Methadone Screen Ur Barbiturates Screen Ur Phencyclidine Scrn Ur Amphetamines Screen U Benzodiazepines Scrn Urine Cocaine Screen U Marijuana (THC) Screen Serum Alcohol 03/28/20 03/28/20 10:40 13:04 WBC RBC Hgb Hct MCV MCH MCHC RDW Plt Count Lymph % (Auto) [place] % (Auto) Eos % (Auto) Baso % (Auto) Absolute Neuts (auto) Absolute Lymphs (auto) Absolute Monos (auto) Absolute Eos (auto) Absolute Basos (auto) Seg Neutrophils % PT INR APTT Carbonic Acid HCO3/H2CO3 Ratio ABG pH ABG pCO2 ABG pO2 ABG HCO3 ABG Total CO2 ABG O2 Saturation ABG Base Excess FiO2 Sodium Cancelled 131.5 L Potassium Cancelled 3.9 Chloride Cancelled 92 L Carbon Dioxide Cancelled 34 H Anion Gap Cancelled 6 BUN Cancelled 9 Creatinine Cancelled 0.44 L Est GFR ( Amer) Cancelled > 60 Est GFR (Non-Af Amer) Cancelled Est GFR (MDRD) Non-Af Cancelled > 60 Glucose Cancelled 122 H POC Glucose Lactic Acid Calcium Cancelled 8.6 Phosphorus Magnesium Total Bilirubin Direct Bilirubin Neonat Total Bilirubin Neonat Direct Bilirubin Neonat Indirect Bili AST ALT Alkaline Phosphatase Ammonia Creatine Kinase Troponin I C-Reactive Protein NT-Pro-B Natriuret Pep Total Protein Albumin Amylase Lipase EGFR Cancelled TSH Free T4 Random Cortisol Urine Color Urine Appearance Urine pH Ur Specific [place] Urine Protein Urine Glucose (UA) Urine Ketones Urine Blood Urine Nitrite Urine Bilirubin Urine Urobilinogen Ur Leukocyte Esterase Urine WBC (Auto) Urine RBC (Auto) U Hyaline Cast (Auto) Squamous Epi Cells Auto Urine Mucus (Auto) Urine Ascorbic Acid Time Trough Drawn Vancomycin Trough Urine Opiates Screen Urine Methadone Screen Ur Barbiturates Screen Ur Phencyclidine Scrn Ur Amphetamines Screen U Benzodiazepines Scrn Urine Cocaine Screen U Marijuana (THC) Screen Serum Alcohol Chest X-Ray 03/24/20 20:08 IMPRESSION: Improved aeration of the right lung base. Overall, the lungs appear clear. Stable cardiomegaly. Head CT 03/24/20 20:09 IMPRESSION: 1. No acute intracranial abnormalities. Nonspecific, mild white matter change most likely small vessel ischemic disease, age indeterminate. 2. CT is insensitive for early evaluation of acute stroke. If there is clinical concern for acute ischemia, an MRI may be considered. 3. Suspected acute on chronic sinus disease. Chest X-Ray 03/26/20 05:00 IMPRESSION: Increasing atelectasis or infiltrate right lower lobe. IMPRESSION/RECOMMENDATION: 1. Acute exacerbation of COPD. Continue anti-COPD medication and antibiotics. Clinically recommend steroids. 2. Acute on chronic) systolic heart failure [acute on chronic cor pulmonale]. Continue diuretics continue current medication. 3. History of hyper pulmonary hypertension: Would recommend stopping the patient's beta-maggy and starting the patient on a calcium channel maggy. 4.Hypertension: Of late the patient has chronic hypotension requiring midodrine to keep her blood pressure well controlled. 5. History of chronic alcohol abuse. Patient counseled to refrain from alcohol. 6. Acute renal failure on admission. Renal function now improved GFR is g reater than 60. 7. Sinus bradycardia on admission most likely this along with hypertension secondary to patient's acute renal insufficiency due to possibly dehydration and right heart failure and hyperkalemia. Note that the hyperkalemia is resolved. 8. Hyperkalemia on admission: Most likely because of sinus bradycardia. This is resolved. 9. History of lung cancer: Patient states this is in remission. I agree with current treatment. Would recommend changing the patient's beta- maggy to a calcium channel maggy. This would help the pulmonary hypertension and also will have less impact on the lungs in the form of wheezing. Medications reviewed. Medical regimen management plan discussed with the attending provider on the case. Medical decision making is high complexity. 60 minutes spent on this patient with more than 50% of time spent in direct patient care. Will follow
[2020-03-29] MEDS: TRAMADOL HCL 50 MG TABLET PO PRN (21:27)
[2020-03-30] MEDS: IPRATROPIUM/ALBUTEROL 0.5-2.5 MG/3 ML AMPUL NEB SCH ×4 (01:48→20:18)
[2020-03-30] MEDS: HEPARIN SOD (PORCINE) 5,000 UNIT/ML 1 ML VIAL SUBCUT SCH ×3 (06:03→21:15)
[2020-03-30] MEDS: TRAMADOL HCL 50 MG TABLET PO PRN ×2 (06:03→21:19)
[2020-03-30] MEDS: VANCOMYCIN HCL 1,000 MG in DEXTROSE 5%-WATER 250 ML IV SCH (06:04)
[2020-03-30] MEDS: GUAIFENESIN SYRP 200 MG/10 ML UDC PO PRN ×2 (06:04→21:18)
[2020-03-30] MEDS: BUPRENORPHINE HCL 2 MG SUBLINGUAL TABLET SL SCH ×2 (09:24→21:19)
[2020-03-30] MEDS: PANTOPRAZOLE SODIUM 40 MG VIAL IV SCH (09:24)
[2020-03-30] MEDS: DOCUSATE SODIUM 100 MG CAPSULE PO SCH (09:24)
[2020-03-30] MEDS: FUROSEMIDE 20 MG TABLET PO SCH (09:24)
[2020-03-30] MEDS: MULTIVITAMIN TABLET PO SCH (09:24)
[2020-03-30] MEDS: POTASSIUM CHLORIDE 10 MEQ TABLET.ER PO SCH (09:25)
[2020-03-30] MEDS: PREDNISONE 20 MG TABLET PO SCH (09:25)
[2020-03-30] MEDS: FOLIC ACID 1 MG TABLET PO SCH (09:25)
[2020-03-30] MEDS: MIDODRINE HCL 5 MG TABLET PO SCH ×3 (09:25→17:13)
[2020-03-30] MEDS: RISPERIDONE 0.5 MG TAB.RAPDIS PO SCH ×2 (09:26→17:08)
[2020-03-30] MEDS: THIAMINE HCL 100 MG TABLET PO SCH (09:27)
[2020-03-30] MEDS: FLUTICASONE/VILANTEROL 200-25 MCG/DOSE IH SCH (09:43)
[2020-03-30] MEDS: DILTIAZEM HCL 120 MG CAP.SR.24H PO SCH (12:15)
[2020-03-30] MEDS: COLLAGENASE CLOSTRIDIUM HIST. OINT 30 GM TOP SCH (12:16)
[2020-03-30] MEDS ORDERED: DAPTOMYCIN INJ 500 MG VIAL IV SCH (15:30)
--- NOTE | 2020-03-30 15:36 | PDOC PROGRESS REPORT ---
Subjective Date:: 03/30/20 Subjective:: Patient feels better. Breathing has improved. No cough notes more today. Eage r to go home soon. I did explain to her that she would have to stay given her positive blood cultures. Reason For Visit: SH[facility] ABTUNDED [facility] AC[facility] INJ[facility]Y Physical Exam Vital Signs: Temp Pulse Resp BP Pulse Ox 97.4 F 101 H 20 147/96 H 95 03/30/20 11:46 03/30/20 14:08 03/30/20 14:08 03/30/20 11:46 03/30/20 14:08 Intake & Output 03/29/20 03/30/20 03/31/20 06:59 06:59 06:59 Intake Total 2718 1972 610 Output Total 2900 4245 675 Balance -182 -403 -65 Weight 69.8 kg 69.8 kg General appearance: PRESENT: no acute distress, cooperative Neck exam: ABSENT: JVD Respiratory exam: PRESENT: rhonchi, symmetrical, unlabored, wheezes. ABSENT: clear to auscultation javier, stridor, tachypnea Cardiovascular exam: PRESENT: RRR, +S1, +S2. ABSENT: tachycardia GI/Abdominal exam: PRESENT: soft. ABSENT: rebound, rigid, tenderness Neurological exam: PRESENT: alert, awake, oriented to person, oriented to place, oriented to time Psychiatric exam: ABSENT: agitated, anxious Results Laboratory Results: 03/28/20 10:40 03/28/20 13:04 03/28/20 13:04 Blood Blood Culture (PCR) - Final Staphylococcus Species 03/28/20 10:50 Blood Blood Culture (PCR) - Final Staphylococcus Species 03/24/20 21:25 Blood Blood Culture - Final NO GROWTH IN 5 DAYS 03/24/20 03/24/20 03/25/20 20:10 20:10 02:47 Creatine Kinase 32 Troponin I 0.097 0.114 NT-Pro-B Natriuret Pep 2480 H 03/25/20 03/25/20 03/25/20 02:47 08:06 14:42 Creatine Kinase Troponin I 0.134 0.166 NT-Pro-B Natriuret Pep 2080 H 03/26/20 03/27/20 04:11 04:10 Creatine Kinase Troponin I NT-Pro-B Natriuret Pep 3290 H 6880 H Impressions: Head CT 03/24/20 20:09 IMPRESSION: 1. No acute intracranial abnormalities. Nonspecific, mild white matter change most likely small vessel ischemic disease, age indeterminate. 2. CT is insensitive for early evaluation of acute stroke. If there is clinical concern for acute ischemia, an MRI may be considered. 3. Suspected acute on chronic sinus disease. Chest X-Ray 03/26/20 05:00 IMPRESSION: Increasing atelectasis or infiltrate right lower lobe. Assessment and Plan - Diagnosis (1) Coagulase negative Staphylococcus bacteremia Is this a current diagnosis for this admission?: Yes Plan: Interestingly, 3 out of 4 BCx bottles have come back with Methicillin resistant coagulase-negative staph suggestive of true bacteremia. This new infection is despite having been on vancomycin since 03/26. The only central line patient has had this hospitalization is her port cath. I would like to avoid removing her port cath if not needed. I will consult ID. I will discontinue vancomycin and start patient on daptomycin IV 600mg daily. Repeat blood cultures (2) Enterococcal bacteremia Is this a current diagnosis for this admission?: Yes Plan: Has been on vancomycin since 03/26/2020. Blood cultures currently showing clearance of Enterococcus. Now on daptomycin. (3) COPD (chronic obstructive pulmonary disease) Qualifiers: COPD type: COPD with acute exacerbation Qualified Code(s): J44.1 - Chronic obstructive pulmonary disease with (acute) exacerbation Is this a current diagnosis for this admission?: Yes Plan: Wheezing improved. Exacerbation is improved. Continue duo nebs. Continue prednisone for few more days. (4) Alcohol withdrawal Qualifiers: Complication of substance-induced condition: with unspecified complication Qualified Code(s): F10.239 - Alcohol dependence with withdrawal, unspecified Is this a current diagnosis for this admission?: Yes Plan: resolved. (5) Alcoholic encephalopathy Is this a current diagnosis for this admission?: Yes Plan: Her mentation has remained at baseline. She is forgetful and has trouble remembering names but is fully cognizant of what is going on and holds an adequate conversation. Thiamine supplements. (6) CHF (congestive heart failure) Qualifiers: Heart failure type: unspecified Heart failure chronicity: unspecified Qualified Code(s): I50.9 - Heart failure, unspecified Is this a current diagnosis for this admission?: Yes Plan: 2D echo (03/25): LV EF 55% with mild concentric LVH. Grade 1/4 diastolic dysfunction. RA mild to moderately dilated. RV mild to moderately dilated. Mild mitral regurgitation, RVSP 50-55mmHg C/w home dose of po lasix. BB switched to Cardizem as per cardiology recommendation. (7) Pulmonary hypertension Is this a current diagnosis for this admission?: Yes (8) Septic shock Is this a current diagnosis for this admission?: Yes Plan: Resolved (9) Lung cancer Qualifiers: Laterality: left Lung location: overlapping sites Qualified Code(s): C34.82 - Malignant neoplasm of overlapping sites of left bronchus and lung Is this a current diagnosis for this admission?: Yes Plan: Outpt f/u with Dr. Robertson - Time Time Spent with patient: 15-24 minutes Anticipated Discharge Disposition: Home, Self Care Anticipated Discharge Timeframe: within 48 hours
[2020-03-30] MEDS: PANTOPRAZOLE SODIUM 40 MG TABLET.DR PO SCH (15:47)
[2020-03-30] MEDS ORDERED: DAPTOMYCIN 600 MG in NORMAL SALINE 50 ML IV SCH (18:00)
[2020-03-30] MEDS ORDERED: FLUCONAZOLE 100 MG TABLET PO ONE (18:00)
--- NOTE | 2020-03-30 19:07 | Progress Note ---
Provider Note Provider Note: CARDIOLOGY PROGRESS NOTE by Dr. Cassandra Davis on 03/30/2020. SUBJECTIVE the patient states her shortness breath is better. She is up and about in the room. Her leg edema has improved. She has no chest pains or discomfort. She denies any palpitations. She denies any PND orthopnea. The patient stay appears to be slightly confused at times. There is no evidence of alcohol withdrawal at present. PHYSICAL EXAMINATION: The patient appears to be chronically ill and malnourished. In no acute distress. Selected Entries 03/30/20 03/30/20 14:08 16:46 Temperature 98.1 F Pulse Rate 67 Respiratory 18 Rate Blood Pressure 113/76 Blood Pressure 88 Mean BP Location Right Arm BP Position Sitting O2 Sat by Pulse 95 Oximetry Oxygen Flow 2.00 Rate Oxygen Delivery Nasal Cannula Method HEAD: Is atraumatic normocephalic. EYES: Pupils equal round regular reactive to light accommodation. Extraocular movements are normal. There is no conjunctival pallor. There is no scleral icterus. EARS: Tympanic membranes are intact. External auditory canals are clear. MOUTH: Mucous membranes of mouth are moist. Tongue is moist. There is no ulcers. THROAT: There is no redness of the oropharynx. There is no exudates. NECK: There is no JVD carotids are equal there is no bruit there is no lymphadenopathy. There is no goiter. LUNGS: There is bilateral scattered rhonchi and bilateral wheezing. No rales of CHF. HEART: S1-S2 is heard there is no S3 gallop there is no S4 gallop. There is systolic murmur left sternal border and the apex there is no rub. ABDOMEN: Soft nontender there is no paraspinal megaly. Bowel sounds are well heard. EXT REMITIES: Femorals are diminished. There is no femoral bruits leg pulses are diminished. There is mild pedal edema bilaterally. There is no DVT or cellulitis. There is no calf tenderness. There is no cyanosis or clubbing. CEMENTER: The patient is conscious awake alert oriented x3 with no focal deficit. PSYCHIATRIC: The patient mentation is slightly slow but his judgment insight are intact. Affect is normal. Chest X-Ray 03/24/20 20:08 IMPRESSION: Improved aeration of the right lung base. Overall, the lungs appear clear. Stable cardiomegaly. Head CT 03/24/20 20:09 IMPRESSION: 1. No acute intracranial abnormalities. Nonspecific, mild white matter change most likely small vessel ischemic disease, age indeterminate. 2. CT is insensitive for early evaluation of acute stroke. If there is clinical concern for acute ischemia, an MRI may be considered. 3. Suspected acute on chronic sinus disease. Chest X-Ray 03/26/20 05:00 IMPRESSION: Increasing atelectasis or infiltrate right lower lobe. Labs- All tests 24 hr 03/24/20 20:34 POC Glucose 83 IMPRESSION/RECOMMENDATION: 1. Acute exacerbation of COPD. Continue anti-COPD medication and antibiotics. Clinically recommend steroids. 2. Acute on chronic) systolic heart failure [acute on chronic cor pulmonale]. Continue diuretics continue current medication. 3. Pulmonary hypertension: Agree with starting the patient on calcium channel blockers. 4. History of hypertension: Of late the patient has chronic hypotension requiring midodrine to keep her blood pressure well controlled. 5. History of chronic alcohol abuse. Patient counseled to refrain from alcoho l. 6. Acute renal failure on admission. Renal function now improved GFR is greater than 60. 7. Sinus bradycardia on admission most likely this along with hypertension secondary to patient's acute renal insufficiency due to possibly dehydration and right heart failure and hyperkalemia. Note that the hyperkalemia is resolved. 8. Hyperkalemia on admission: Most likely because of sinus bradycardia. This is resolved. 9. History of lung cancer: Patient states this is in remission. Medications reviewed. Medical regiment and management plan discussed with Dr. Jelani GOODMAN. Medical history making is of high complexity. 40 minutes spent on this patient more than 50% of time spent in direct patient care. Will follow
[2020-03-31] MEDS: IPRATROPIUM/ALBUTEROL 0.5-2.5 MG/3 ML AMPUL NEB SCH ×4 (02:32→19:25)
[2020-03-31] MEDS: HEPARIN SOD (PORCINE) 5,000 UNIT/ML 1 ML VIAL SUBCUT SCH ×3 (05:19→21:25)
[2020-03-31] MEDS: TRAMADOL HCL 50 MG TABLET PO PRN (06:40)
[2020-03-31] MEDS: DILTIAZEM HCL 120 MG CAP.SR.24H PO SCH (09:25)
[2020-03-31] MEDS: MIDODRINE HCL 5 MG TABLET PO SCH ×3 (09:25→18:38)
[2020-03-31] MEDS: FOLIC ACID 1 MG TABLET PO SCH (09:25)
[2020-03-31] MEDS: PANTOPRAZOLE SODIUM 40 MG TABLET.DR PO SCH ×2 (09:25→18:38)
[2020-03-31] MEDS: POTASSIUM CHLORIDE 10 MEQ TABLET.ER PO SCH (09:30)
[2020-03-31] MEDS: BUPRENORPHINE HCL 2 MG SUBLINGUAL TABLET SL SCH ×2 (09:30→21:28)
[2020-03-31] MEDS: FUROSEMIDE 20 MG TABLET PO SCH (09:30)
[2020-03-31] MEDS: PREDNISONE 20 MG TABLET PO SCH (09:30)
[2020-03-31] MEDS: RISPERIDONE 0.5 MG TAB.RAPDIS PO SCH ×2 (09:30→18:37)
[2020-03-31] MEDS: THIAMINE HCL 100 MG TABLET PO SCH (09:30)
[2020-03-31] MEDS: FLUTICASONE/VILANTEROL 200-25 MCG/DOSE IH SCH (09:31)
[2020-03-31] MEDS: DOCUSATE SODIUM 100 MG CAPSULE PO SCH (09:31)
[2020-03-31] MEDS: MULTIVITAMIN TABLET PO SCH (09:33)
[2020-03-31] MEDS: COLLAGENASE CLOSTRIDIUM HIST. OINT 30 GM TOP SCH (09:37)
[2020-03-31] MEDS: ACETAMINOPHEN 325 MG TABLET PO PRN ×2 (09:38→18:37)
[2020-03-31] MEDS: GUAIFENESIN SYRP 200 MG/10 ML UDC PO PRN (14:17)
--- NOTE | 2020-03-31 14:42 | Progress Note ---
Provider Note Provider Note: [facility] ID Telephone Advice Consultation Chart reviewed, patient not seen. Patient is a 59-year-old woman with COPD, alcohol abuse, CHF and history of lung cancer who was admitted due to altered mental status. She was obtunded on admission. Apparently she was found unresponsive. On admission, she was afebrile but she was hypotensive and bradycardic. Patient was admitted to the ICU and started on norepinephrine then transitioned to dopamine. CXR showed right lung base opacity. CT head was negative for any acute processes. She was started on vancomycin and ceftriaxone for aspiration pneumonia. Blood culture on admission had 1/2 sets positive for Enterococcus faecalis on 03/24. A repeat culture on 03/28 was positive for 2 different CoNS. One set was from the port and it grew Staph hemolyticus and a peripheral that grew Staph epidermidis. Vancomycin was changed to daptomycin and ceftriaxone was discontinued. She received 5 days of therapy. Her respiratory symptoms have resolved and she is overall doing well, mental status back to baseline. ID consulted for recommendations. Allergies: aspirin [Aspirin] Allergy (Verified 10/06/18 17:54) NSAIDS (Non-Steroidal Anti-Inflamma [Nsaids] Allergy (Verified 10/06/18 17:54) Penicillins Allergy (Verified 10/06/18 17:54) Medications: Albuterol Sulfate [Albuterol Sulfate Hfa] 1 puff IH Q6HP PRN 09/04/19 Tussionex 5 ml PO Q8HP PRN 09/04/19 Hydroxyzine Pamoate [Vistaril 50 mg Capsule] 50 mg PO TID 12/26/19 Pantoprazole Sodium [Protonix [address] Tablet] 40 mg PO QAM 03/02/20 Fluticasone/Salmeterol [Advair 500-50 Diskus 14 Dose/Diskus] 1 inh IH Q12 03/25/20 Nicotine [Nicoderm 21 mg/24 Hr Transderm Patch] 1 each TD DAILYP PRN 03/25/20 Vital Signs: Temp Pulse Resp BP Pulse Ox 98.1 F 124 H 16 106/68 88 L 03/31/20 11:29 03/31/20 14:16 03/31/20 14:16 03/31/20 11:29 03/31/20 14:16 Intake & Output 03/30/20 03/31/20 04/01/20 06:59 06:59 06:59 Intake Total 1972 850 260 Output Total 3723 675 Balance -403 175 260 Weight 69.8 kg 70.3 kg 70.3 kg Weight/Height Weight 70.3 kg Height 5 ft 2 in Laboratories: 03/28/20 10:40 03/28/20 13:04 MCV 97 fl (80-97) 03/28/20 10:40 MCH 31.9 pg (27.0-33.4) 03/28/20 10:40 MCHC 33.0 g/dL (32.0-36.0) 03/28/20 10:40 RDW 18.0 % (11.5-14.0) H 03/28/20 10:40 Seg Neutrophils % 73.3 % (42-78) 03/28/20 10:40 Carbonic Acid 1.59 mmol/L (1.05-1.35) H 03/25/20 02:55 HCO3/H2CO3 Ratio 14:1 03/25/20 02:55 ABG pH 7.25 (7.35-7.45) L 03/25/20 02:55 ABG pCO2 52.9 mmHg (35-45) H 03/25/20 02:55 ABG pO2 74.4 mmHg (80-100) L 03/25/20 02:55 ABG HCO3 22.7 mmol/L (20-24) 03/25/20 02:55 ABG O2 Saturation 92.5 % (94-98) L 03/25/20 02:55 ABG Base Excess -4.7 mmol/L 03/25/20 02:55 FiO2 4L 03/25/20 02:55 Chloride 92 mmol/L (98-107) L 03/28/20 13:04 Carbon Dioxide 34 mmol/L (22-30) H 03/28/20 13:04 Anion Gap 6 (5-19) 03/28/20 13:04 Est GFR ( Amer) > 60 (>60) 03/28/20 13:04 Est GFR (Non-Af Amer) Cancelled 03/28/20 10:40 Glucose 122 mg/dL (75-110) H 03/28/20 13:04 Lactic Acid 1.3 mmol/L (0.7-2.1) 03/24/20 20:10 Calcium 8.6 mg/dL (8.4-10.2) 03/28/20 13:04 Phosphorus 4.3 mg/dL (2.5-4.5) 03/26/20 04:11 Magnesium 2.9 mg/dL (1.6-2.3) H 03/26/20 04:11 Total Bilirubin 0.7 mg/dL (0.2-1.3) 03/27/20 04:10 AST 21 U/L (14-36) 03/27/20 04:10 Alkaline Phosphatase 154 U/L (38-126) H 03/27/20 04:10 Ammonia 25.3 umol/L (9-33) 03/25/20 04:15 C-Reactive Protein 61.5 mg/L (<10.0) H 03/24/20 20:10 Total Protein 6.8 g/dL (6.3-8.2) 03/27/20 04:10 Albumin 2.9 g/dL (3.5-5.0) L 03/27/20 04:10 Amylase 40 U/L (30-110) 03/25/20 02:47 Lipase 202.5 U/L (23-300) 03/25/20 02:47 TSH 4.77 uIU/mL (0.47-4.68) H 03/24/20 20:10 Free T4 1.09 ng/dL (0.78-2.19) 03/24/20 20:10 Urine Color YELLOW 03/24/20 20:15 Urine Appearance SLIGHTLY-CLOUDY 03/24/20 20:15 Urine pH 5.0 (5.0-9.0) 03/24/20 20:15 Ur Specific [place] 1.019 03/24/20 20:15 Urine Protein NEGATIVE mg/dL (NEGATIVE) 03/24/20 20:15 Urine Glucose (UA) NEGATIVE mg/dL (NEGATIVE) 03/24/20 20:15 Urine Ketones NEGATIVE mg/dL (NEGATIVE) 03/24/20 20:15 Urine Blood NEGATIVE (NEGATIVE) 03/24/20 20:15 Urine Nitrite NEGATIVE (NEGATIVE) 03/24/20 20:15 Ur Leukocyte Esterase NEGATIVE (NEGATIVE) 03/24/20 20:15 Urine WBC (Auto) 1 /HPF 03/24/20 20:15 Urine RBC (Auto) 0 /HPF 03/24/20 20:15 03/28/20 13:04 Blood Blood Culture (PCR) - Final Staphylococcus Species 03/28/20 13:04 Blood Blood Culture - Final Staphylococcus Epidermidis 03/28/20 10:50 Blood Blood Culture (PCR) - Final Staphylococcus Species 03/28/20 10:50 Blood Blood Culture - Final Staphylococcus Haemolyticus 03/24/20 03/24/20 03/25/20 20:10 20:10 02:47 Creatine Kinase 32 Troponin I 0.097 0.114 NT-Pro-B Natriuret Pep 2480 H 03/25/20 03/25/20 03/25/20 02:47 08:06 14:42 Creatine Kinase Troponin I 0.134 0.166 NT-Pro-B Natriuret Pep 2080 H 03/26/20 03/27/20 04:11 04:10 Creatine Kinase Troponin I NT-Pro-B Natriuret Pep 3290 H 6880 H Radiology: Head CT 03/24/20 20:09 IMPRESSION: 1. No acute intracranial abnormalities. Nonspecific, mild white matter change most likely small vessel ischemic disease, age indeterminate. 2. CT is insensitive for early evaluation of acute stroke. If there is clinical concern for acute ischemia, an MRI may be considered. 3. Suspected acute on chronic sinus disease. Chest X-Ray 03/26/20 05:00 IMPRESSION: Increasing atelectasis or infiltrate right lower lobe. Assessment and Recommendations: Patient evaluated for Enterococcus faecalis bacteremia and polymicrobial blood cultures after vancomycin was started. Patient initially admitted with AMS and right sided pneumonia. There is a possibility that she could've aspirated. She received at least 5 days of vancomycin and ceftriaxone which is adequate for aspiration. Blood culture positive for Enterococcus faecalis, source could be the foot vs aspiration as well. Vancomycin is adequate in the setting of penicillin allergy. She is currently on daptomycin, but will recommend to switch back to vancomycin to treat for 14 days for bacteremia. This will cover her blood and lungs as well. This can be administered through the port to decolonize it. Evaluate for wound infection as well as potential source. TTE negative for vegetations. EOT for bacteremia will be 04/07/20. Please call back if questions. Grazyna Lawson MD [facility] ID [phone]
[2020-03-31] MEDS ORDERED: VANCOMYCIN HCL 0 MG in DEXTROSE 5%-WATER 250 ML IV NR (15:45)
[2020-03-31] MEDS: VANCOMYCIN HCL 1,000 MG in DEXTROSE 5%-WATER 250 ML IV SCH (18:38)
--- NOTE | 2020-03-31 18:55 | Progress Note ---
Provider Note Provider Note: CARDIOLOGY PROGRESS NOTE by Dr. Cassandra Davis on 03/31/2020. OBJECTIVE: The patient is very confused and delirious but in no acute distress. She does not seem to be agitated. Her blood cultures grew Enterococcus faecalis and ID consult has been obtained via the Internet. Their recommendations are to continue antibiotics till 04/07/2020. The patient denies any chest pain or discomfort. There is no shortness of breath. Her lungs sound better. PHYSICAL EXAMINATION: The patient appears to be chronically ill and malnourished. She is confused delirious but in no acute distress. Selected Entries 03/31/20 16:03 Temperature 97.9 F Temperature Oral Source Pulse Rate 121 H Respiratory 18 Rate Blood Pressure 96/63 L Blood Pressure 74 Mean BP Location Left Arm BP Position Sitting O2 Sat by Pulse 92 Oximetry Oxygen Delivery Room Air Method HEAD: Is atraumatic normocephalic. EYES: Pupils equal round regular reactive to light accommodation. Extraocular movements are normal. There is no conjunctival pallor. There is no scleral icterus. EARS: Tympanic membranes are intact. External auditory canals are clear. MOUTH: Mucous membranes of mouth are moist. Tongue is moist. There is no ulcers. THROAT: There is no redness of the oropharynx. There is no exudates. NECK: There is no JVD carotids are equal there is no bruit there is no lymphadenopathy. There is no goiter. LUNGS: There is bilateral scattered rhonchi and bilateral wheezing. No rales of CHF. HEART: S1-S2 is heard there is no S3 gallop there is no S4 gallop. There is systolic murmur left sternal border and the apex there is no rub. ABDOMEN: Soft nontender there is no paraspinal megaly. Bowel sounds are well heard. EXTREMITIES: Femorals are diminished. There is no femoral bruits leg pulses are diminished. There is mild pedal edema bilaterally. There is no DVT or cellulitis. There is no calf tenderness. There is no cyanosis or clubbing. FAMILY AND MARRIAGE COUNSELLOR: The patient is conscious awake alert, but confused and disoriented x3. PSYCHIATRIC: The patient is delirious but does not appear to be agitated. Chest X-Ray 03/24/20 20:08 IMPRESSION: Improved aeration of the right lung base. Overall, the lungs appear clear. Stable cardiomegaly. Head CT 03/24/20 20:09 IMPRESSION: 1. No acute intracranial abnormalities. Nonspecific, mild white matter change most likely small vessel ischemic disease, age indeterminate. 2. CT is insensitive for early evaluation of acute stroke. If there is clinical concern for acute ischemia, an MRI may be considered. 3. Suspected acute on chronic sinus disease. Chest X-Ray 03/26/20 05:00 IMPRESSION: Increasing atelectasis or infiltrate right lower lobe. IMPRESSION/RECOMMENDATION: 1. Acute exacerbation of COPD. Continue anti-COPD medication and antibiotics. Clinically recommend steroids. 2. SEPSIS: Positive blood cultures for Enterococcus faecalis. ID consult via Internet. Their recommendations have been noted. 3. 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 4. Acute on chronic) systolic heart failure [acute on chronic cor pulmonale]. Continue diuretics continue current medication. 5. Pulmonary hypertension: Agree with starting the patient on calcium channel blockers. 6. History of hypertension: Of late the patient has chronic hypotension requiring midodrine to keep her blood pressure well controlled. 7. History of chronic alcohol abuse. Patient counseled to refrain from alcohol. 8. Acute renal failure on admission. Renal function now improved GFR is greater than 60. 9. Sinus bradycardia on admission most likely this along with hypertension secondary to patient's acute renal insufficiency due to possibly dehydration and right heart failure and hyperkalemia. Note that the hyperkalemia is resolved. Medications reviewed. Medical management and medical regimen discussed with attending The case. Medical decision making is of moderate complexity. 40 minutes spent on patient, with more than 50% spent on direct patient care. Will follow
--- NOTE | 2020-03-31 21:49 | PDOC PROGRESS REPORT ---
Subjective Date:: 03/31/20 Subjective:: Patient is a 59-year-old -[place] female presented to [facility] emergency department via EMS on 03/24/2020 with altered mental status. Briefly, patient was admitted to the ICU for altered mental status, hypotension, and bradycardia. Required short dopamine drip with improvement of her bradycardia and hypotension. She experienced DT secondary to alcoholic w ithdrawal in ICU with resolution DTs and without recurrence. Transferred out of ICU 03/27. On antibiotics for Enterococcus bacteremia. Patient is seen on morning rounds. She is standing at bedside. Tells me that she feels better overall with improvement in breathing and no cough. Additionally she tells me that her lower leg swelling has improved, she has been compliant with compression. She is eager to go home. Discussed positive blood cultures and need for follow-up blood cultures and continued antibiotics. She did become tearful during our discussion and states that she just wants to go home. She denies any fever, chills, chest pain or discomfort, palpitations, PND, orthopnea. She does tell me that she has had frequent diarrhea today. She tells me this is common for her and often treats diarrhea at home with Imodium. Given recent antibiotics will test for C. difficile. Discussed with nursing only concern is that patient is wanting to go home. Reason For Visit: [facility] Physical Exam Vital Signs: Temp Pulse Resp BP Pulse Ox 98.1 F 124 H 16 106/68 88 L 03/31/20 11:29 03/31/20 14:16 03/31/20 14:16 03/31/20 11:29 03/31/20 14:16 Intake & Output 03/30/20 03/31/20 04/01/20 06:59 06:59 06:59 Intake Total 1972 850 260 Output Total 2370 675 Balance -403 175 260 Weight 69.8 kg 70.3 kg 70.3 kg General appearance: PRESENT: no acute distress, cooperative Head exam: PRESENT: atraumatic, normocephalic Eye exam: PRESENT: EOMI Mouth exam: PRESENT: moist, tongue midline Teeth exam: PRESENT: poor dentation Neck exam: PRESENT: full ROM Respiratory exam: PRESENT: rhonchi, symmetrical, unlabored, wheezes. ABSENT: stridor, tachypnea Cardiovascular exam: PRESENT: RRR, +S1, +S2, systolic murmur. ABSENT: tachycardia Pulses: PRESENT: normal radial pulses GI/Abdominal exam: PRESENT: soft. ABSENT: distended, firm, tenderness Extremities exam: PRESENT: full ROM, pedal edema - bilaterally Neurological exam: PRESENT: alert, awake, oriented to person, oriented to place Psychiatric exam: PRESENT: anxious, other - Teary on exam. Skin exam: PRESENT: dry, other - Chronic appearing ulceration to dorsum of right foot. ABSENT: erythema, intact Results Laboratory Results: 03/28/20 10:40 03/28/20 13:04 03/28/20 13:04 Blood Blood Culture (PCR) - Final Staphylococcus Species 03/28/20 13:04 Blood Blood Culture - Final Staphylococcus Epidermidis 03/28/20 10:50 Blood Blood Culture (PCR) - Final Staphylococcus Species 03/28/20 10:50 Blood Blood Culture - Final Staphylococcus Haemolyticus 03/24/20 03/24/20 03/25/20 20:10 20:10 02:47 Creatine Kinase 32 Troponin I 0.097 0.114 NT-Pro-B Natriuret Pep 2480 H 03/25/20 03/25/20 03/25/20 02:47 08:06 14:42 Creatine Kinase Troponin I 0.134 0.166 NT-Pro-B Natriuret Pep 2080 H 03/26/20 03/27/20 04:11 04:10 Creatine Kinase Troponin I NT-Pro-B Natriuret Pep 3290 H 6880 H Impressions: Head CT 03/24/20 20:09 IMPRESSION: 1. No acute intracranial abnormalities. Nonspecific, mild white matter change most likely small vessel ischemic disease, age indeterminate. 2. CT is insensitive for early evaluation of acute stroke. If there is clinical concern for acute ischemia, an MRI may be considered. 3. Suspected acute on chronic sinus disease. Chest X-Ray 03/26/20 05:00 IMPRESSION: Increasing atelectasis or infiltrate right lower lobe. Assessment and Plan - Diagnosis (1) Coagulase negative Staphylococcus bacteremia Is this a current diagnosis for this admission?: Yes Plan: Interestingly, 3 out of 4 BCx bottles have come back with Methicillin resistant coagulase-negative staph suggestive of true bacteremia. This new infection is despite having been on vancomycin since 03/26. Switch to daptomycin yesterday. Discontinued today, as per ID. ID consulted, note reviewed case discussed recommendations as follows: - "Blood culture positive for Enterococcus faecalis, source could be the foot vs aspiration as well." - "Vancomycin is adequate in the setting of penicillin allergy." - "Recommend to switch back to vancomycin to treat for 14 days for bacteremia." Vancomycin restarted 03/31, dosing as per pharmacist. - EOT for bacteremia will be 04/07/20 BC 03/30 without growth 24hrs. (2) Enterococcal bacteremia Is this a current diagnosis for this admission?: Yes Plan: Has been on vancomycin since 03/26/2020. - Blood cultures 03/28 clearance of Enterococcus. - BC 03/30 without growth 24 hours. - Changed to daptomycin 03/30. Id consulted as above. - Vancomycin restarted 03/31, dosing as per pharmacist. - EOT for bacteremia will be 04/07/20 (3) COPD (chronic obstructive pulmonary disease) Qualifiers: COPD type: COPD with acute exacerbation Qualified Code(s): J44.1 - Chronic obstructive pulmonary disease with (acute) exacerbation Is this a current diagnosis for this admission?: Yes Plan: Wheezing has essentionally resolved. - Exacerbation is improved. - Continue duo nebs. - Prednisone day 2 (EOT 04/03/2020) (4) Alcohol withdrawal Qualifiers: Complication of substance-induced condition: with unspecified complication Qualified Code(s): F10.239 - Alcohol dependence with withdrawal, unspecified Is this a current diagnosis for this admission?: Yes Plan: Resolved. Does not appear to be in current withdrawal. (5) Alcoholic encephalopathy Is this a current diagnosis for this admission?: Yes Plan: Mentation currently at baseline. Historically she has further [place] with trouble remembering names but is fully cognizant of what is going on and holds an adequate conversation. Any thiamine supplementation at this time. (6) CHF (congestive heart failure) Qualifiers: Heart failure type: unspecified Heart failure chronicity: unspecified Qualified Code(s): I50.9 - Heart failure, unspecified Is this a current diagnosis for this admission?: Yes Plan: With reported improvement in edema and SOB. Without PND or orthopnea. - Continue home dose po lasix. - Continue Cardizem, as per cardiology recommendations. Echo (03/25): LV EF 55% with mild concentric LVH. Grade 1/4 diastolic dysfunction. RA mild to moderately dilated. RV mild to moderately dilated. Mild mitral regurgitation, RVSP 50-55mmHg. (7) Pulmonary hypertension Is this a current diagnosis for this admission?: Yes (8) Septic shock Is this a current diagnosis for this admission?: Yes Plan: Resolved. (9) Lung cancer Qualifiers: Laterality: left Lung location: overlapping sites Qualified Code(s): C34.82 - Malignant neoplasm of overlapping sites of left bronchus and lung Is this a current diagnosis for this admission?: Yes Plan: Outpt f/u with Dr. Robertson (10) Diarrhea Qualifiers: Diarrhea type: unspecified type Qualified Code(s): R19.7 - Diarrhea, unspecified Is this a current diagnosis for this admission?: Yes Plan: Pt reports frequent diarrhea, treats with Imodium at home. Given history of antibiotic we will test for C. difficile. If negative implement home Imodium. (11) Pressure ulcer of dorsum of right foot Is this a current diagnosis for this admission?: Yes Plan: Potentially other source of infection. Wound care consulted for recommendations and treatment. (12) Tobacco abuse Is this a current diagnosis for this admission?: Yes Plan: Implement nicotine patch. Pt educated >3 minutes on tobacco cessation. Provided encouragement to stop smoking. - Plan Summary Summary: Continue with vancomycin as per pharmacy dosing with EOT 04/07. Continue to follow-up blood cultures. If able to get outpatient vanc at infusion clinic consider that so pt can dc home. - Time Time Spent with patient: 25-34 minutes Medications reviewed and adjusted accordingly: Yes Anticipated Discharge Disposition: Home, Self Care Anticipated Discharge Timeframe: TBD
[2020-03-31] MEDS ORDERED: LORAZEPAM INJ 2 MG/1 ML VIAL IV PRN (23:07)
[2020-04-01] MEDS: IPRATROPIUM/ALBUTEROL 0.5-2.5 MG/3 ML AMPUL NEB SCH ×4 (02:57→20:36)
[2020-04-01] MEDS: HEPARIN SOD (PORCINE) 5,000 UNIT/ML 1 ML VIAL SUBCUT SCH ×2 (05:51→13:58)
[2020-04-01 09:11] LABS: ANION GAP 5 (5-19); BLOOD UREA NITROGEN 8 mg/dL (7-20); CALCIUM 8.9 mg/dL (8.4-10.2); CARBON DIOXIDE 30 mmol/L (22-30); CHLORIDE 99 mmol/L (98-107); GLUCOSE 86 mg/dL (75-110); POTASSIUM 4.5 mmol/L (3.6-5.0)
[2020-04-01] MEDS: BUPRENORPHINE HCL 2 MG SUBLINGUAL TABLET SL SCH (10:28)
[2020-04-01] MEDS: ACETAMINOPHEN 325 MG TABLET PO PRN (10:28)
[2020-04-01] MEDS: PREDNISONE 20 MG TABLET PO SCH (10:29)
[2020-04-01] MEDS: FUROSEMIDE 20 MG TABLET PO SCH (10:29)
[2020-04-01] MEDS: DILTIAZEM HCL 120 MG CAP.SR.24H PO SCH (10:29)
[2020-04-01] MEDS: PANTOPRAZOLE SODIUM 40 MG TABLET.DR PO SCH ×2 (10:29→17:42)
[2020-04-01] MEDS: POTASSIUM CHLORIDE 10 MEQ TABLET.ER PO SCH (10:29)
[2020-04-01] MEDS: MIDODRINE HCL 5 MG TABLET PO SCH ×3 (10:29→17:42)
[2020-04-01] MEDS: FOLIC ACID 1 MG TABLET PO SCH (10:29)
[2020-04-01] MEDS: FLUTICASONE/VILANTEROL 200-25 MCG/DOSE IH SCH (10:31)
[2020-04-01] MEDS: THIAMINE HCL 100 MG TABLET PO SCH (10:31)
[2020-04-01] MEDS: RISPERIDONE 0.5 MG TAB.RAPDIS PO SCH ×2 (10:31→19:47)
[2020-04-01] MEDS: DOCUSATE SODIUM 100 MG CAPSULE PO SCH (10:37)
[2020-04-01] MEDS: COLLAGENASE CLOSTRIDIUM HIST. OINT 30 GM TOP SCH (10:38)
[2020-04-01] MEDS: MULTIVITAMIN TABLET PO SCH (10:39)
[2020-04-01] MEDS ORDERED: LORAZEPAM 1 MG TABLET PO PRN (11:17)
[2020-04-01 15:05] LABS: ABSOLUTE LYMPHOCYTES (AUTO) 0.6 10^3/uL (0.5-4.7); ABSOLUTE MONOCYTES (AUTO) 0.2 10^3/uL (0.1-1.4); ABSOLUTE NEUT (AUTO) 8.5 10^3/uL (1.7-8.2); EOSINOPHILS % (AUTO) 0.1 % (0-6); HEMATOCRIT 36.4 % (36.0-47.0); HEMOGLOBIN 11.9 g/dL (12.0-15.5); LYMPHOCYTES % (AUTO) 6.3 % (13-45); MEAN CORPUSCULAR HEMOGLOBIN 31.6 pg (27.0-33.4); MEAN CORPUSCULAR HGB CONC 32.7 g/dL (32.0-36.0); MEAN CORPUSCULAR VOLUME 96 fl (80-97); MONOCYTES % (AUTO) 1.8 % (3-13); PLATELET COUNT 163 10^3/uL (150-450); RED BLOOD COUNT 3.77 10^6/uL (3.72-5.28); RED CELL DISTRIBUTION WIDTH 17.4 % (11.5-14.0); SEGMENTED NEUTROPHILS % (AUTO) 91.8 % (42-78); TOTAL CELLS COUNTED % (AUTO) 100 %; WHITE BLOOD COUNT 9.3 10^3/uL (4.0-10.5)
[2020-04-01 15:29] LABS: ANION GAP 10 (5-19); BLOOD UREA NITROGEN 9 mg/dL (7-20); CALCIUM 9.3 mg/dL (8.4-10.2); CARBON DIOXIDE 30 mmol/L (22-30); CHLORIDE 95 mmol/L (98-107); GLUCOSE 151 mg/dL (75-110); POTASSIUM 3.7 mmol/L (3.6-5.0)
[2020-04-01] MEDS ORDERED: NORMAL SALINE 1000 ML 1,000 ML IV PRN (15:57)
[2020-04-01] MEDS ORDERED: LORAZEPAM INJ 2 MG/1 ML VIAL IV PRN (17:02)
--- NOTE | 2020-04-01 17:17 | PDOC PROGRESS REPORT ---
Subjective Date:: 04/01/20 Subjective:: Patient is a 59-year-old -[place] female presented to [facility] emergency department via EMS on 03/24/2020 with altered mental status. Briefly, patient was admitted to the ICU for altered mental status, hypotension, and bradycardia. Required short dopamine drip with improvement of her bradycardia and hypotension. She experienced DT secondary to alcoholic w ithdrawal in ICU with resolution DTs and without recurrence. Transferred out of ICU 03/27. On antibiotics for Enterococcus bacteremia. Patient is seen on morning rounds. She is sitting comfortably on her bed. She has been weaned off oxygen. Denies shortness of breath or cough, states overall feeling significantly better. Patient with labile mood. She becomes teary throughout exam the reason is unclear. When asked if she would like to talk to someone from psych she agrees. Denies suicidal or homicidal ideations. Patient denies any fever, chills, chest pain or discomfort, palpitations, PND, orthopnea, lower extremity edema. Discussed with nursing, patient with visual hallucinations, as documented in nursing notes. Patient has been going into other patient's rooms. She was given Ativan PO with improvement. No further concerns per nursing. Reason For Visit: [facility] Physical Exam Vital Signs: Temp Pulse Resp BP Pulse Ox 97.8 F 114 H 20 118/79 90 L 03/31/20 23:39 04/01/20 14:12 04/01/20 14:12 03/31/20 23:39 04/01/20 14:12 Intake & Output 03/31/20 04/01/20 04/02/20 06:59 06:59 06:59 Intake Total 850 900 Output Total 675 2550 Balance 175 -1650 Weight 70.3 kg 71.7 kg Additional comments: General appearance: PRESENT: Becomes teary on exam Eye exam: PRESENT: EOMI Mouth exam: PRESENT: moist, tongue midline Teeth exam: PRESENT: poor dentation Respiratory exam: PRESENT: rhonchi, symmetrical, unlabored, wheezes. ABSENT: stridor, tachypnea Cardiovascular exam: PRESENT: RRR, +S1, +S2, systolic murmur. GI/Abdominal exam: PRESENT: soft. ABSENT: distended, firm, tenderness Extremities exam: PRESENT: full ROM, pedal edema improved from previous - bilaterally Neurological exam: PRESENT: alert, awake, oriented to person Psychiatric exam: PRESENT: anxious, other - Teary on exam. Labile mood. Disorganized thought process. Skin exam: PRESENT: dry, other - Chronic appearing ulceration to dorsum of right foot. ABSENT: erythema, edema, warmth, redness Results Laboratory Results: 04/01/20 14:50 04/01/20 14:50 04/01/20 04/01/20 04/01/20 08:00 08:00 14:50 WBC Cancelled RBC Cancelled Hgb Cancelled Hct Cancelled MCV Cancelled MCH Cancelled MCHC Cancelled RDW Cancelled Plt Count Cancelled Seg Neutrophils % Sodium 133.8 L 135.2 L Potassium 4.5 3.7 Chloride 99 95 L Carbon Dioxide 30 30 Anion Gap 5 10 BUN 8 9 Creatinine 0.28 L 0.34 L Est GFR ( Amer) > 60 > 60 Glucose 86 151 H Lactic Acid Calcium 8.9 9.3 04/01/20 04/01/20 14:50 14:50 WBC 9.3 RBC 3.77 Hgb 11.9 L Hct 36.4 MCV 96 MCH 31.6 MCHC 32.7 RDW 17.4 H Plt Count 163 Seg Neutrophils % 91.8 H Sodium Potassium Chloride Carbon Dioxide Anion Gap BUN Creatinine Est GFR ( Amer) Glucose Lactic Acid 2.4 H Calcium 03/24/20 03/24/20 03/25/20 20:10 20:10 02:47 Creatine Kinase 32 Troponin I 0.097 0.114 NT-Pro-B Natriuret Pep 2480 H 03/25/20 03/25/20 03/25/20 02:47 08:06 14:42 Creatine Kinase Troponin I 0.134 0.166 NT-Pro-B Natriuret Pep 2080 H 03/26/20 03/27/20 04:11 04:10 Creatine Kinase Troponin I NT-Pro-B Natriuret Pep 3290 H 6880 H Impressions: Head CT 03/24/20 20:09 IMPRESSION: 1. No acute intracranial abnormalities. Nonspecific, mild white matter change most likely small vessel ischemic disease, age indeterminate. 2. CT is insensitive for early evaluation of acute stroke. If there is clinical concern for acute ischemia, an MRI may be considered. 3. Suspected acute on chronic sinus disease. Chest X-Ray 03/26/20 05:00 IMPRESSION: Increasing atelectasis or infiltrate right lower lobe. Assessment and Plan - Diagnosis (1) Coagulase negative Staphylococcus bacteremia Is this a current diagnosis for this admission?: Yes Plan: 3 out of 4 BCx bottles have come back with Methicillin resistant coagulase- negative staph suggestive of true bacteremia. This new infection is despite having been on vancomycin since 03/26. Switch to daptomycin 03/31. Discontinued today, as per ID. ID consulted, note reviewed case discussed recommendations as follows: - "Blood culture positive for Enterococcus faecalis, source could be the foot vs aspiration as well." - "Vancomycin is adequate in the setting of penicillin allergy." - "Recommend to switch back to vancomycin to treat for 14 days for bacteremia." Vancomycin restarted 03/31, dosing as per pharmacist. - EOT for bacteremia will be 04/07/20 BC 03/30 without growth 24hrs. (2) Enterococcal bacteremia Is this a current diagnosis for this admission?: Yes Plan: Has been on vancomycin since 03/26/2020. - Blood cultures 03/28 clearance of Enterococcus. - BC 03/30 without growth 48 hours. - Changed to daptomycin 03/30. Id consulted as above. - Vancomycin restarted 03/31, dosing as per pharmacist. - EOT for bacteremia will be 04/07/20 (3) COPD (chronic obstructive pulmonary disease) Qualifiers: COPD type: COPD with acute exacerbation Qualified Code(s): J44.1 - Chronic obstructive pulmonary disease with (acute) exacerbation Is this a current diagnosis for this admission?: Yes Plan: Wheezing has resolved. - Exacerbation is improved. - Continue duo nebs. - Prednisone day 3 (EOT 04/03/2020) (4) Alcohol withdrawal Qualifiers: Complication of substance-induced condition: with unspecified complication Qualified Code(s): F10.239 - Alcohol dependence with withdrawal, unspecified Is this a current diagnosis for this admission?: Yes Plan: She is hallucinating per nuing, see nursing note. Hard to tell if this is related to alcohol withdrawal, alcoholic cephalopathy or delirium Discussed with psych. Chart evaluated in detail. Provided med recommendations today with plans to see tomorrow. - Potential patient experiencing DTs given day 8 without alcohol, falls within 7-10 day period of DTs. - Continue respiradone - Continue Ativan IV q 6hr - Initiate Buspar 5mg BID - Depakote ER 250mg BID (5) Alcoholic encephalopathy Is this a current diagnosis for this admission?: Yes Plan: Mentation at baseline during exam. Though hallucinations as noted above. Historically she has further Falls with trouble remembering names but is fully cognizant of what is going on and holds an adequate conversation. Continue thiamine supplementation at this time. (6) CHF (congestive heart failure) Qualifiers: Heart failure type: unspecified Heart failure chronicity: unspecified Qualified Code(s): I50.9 - Heart failure, unspecified Is this a current diagnosis for this admission?: Yes Plan: With reported improvement in edema and SOB. Without PND or orthopnea. - Continue home dose po lasix. - Continue Cardizem, as per cardiology recommendations. Echo (03/25): LV EF 55% with mild concentric LVH. Grade 1/4 diastolic dysfunction. RA mild to moderately dilated. RV mild to moderately dilated. Mild mitral regurgitation, RVSP 50-55mmHg. (7) Pulmonary hypertension Is this a current diagnosis for this admission?: Yes (8) Septic shock Is this a current diagnosis for this admission?: Yes Plan: Resolved. (9) Lung cancer Qualifiers: Laterality: left Lung location: overlapping sites Qualified Code(s): C34.82 - Malignant neoplasm of overlapping sites of left bronchus and lung Is this a current diagnosis for this admission?: Yes Plan: Outpt f/u with Dr. Robertson (10) Diarrhea Qualifiers: Diarrhea type: unspecified type Qualified Code(s): R19.7 - Diarrhea, unspecified Is this a current diagnosis for this admission?: Yes Plan: Resolved. Though C. difficile test was never collected. (11) Pressure ulcer of dorsum of right foot Is this a current diagnosis for this admission?: Yes Plan: Potentially other source of infection. Wound care consulted for recommendations and treatment. - Evaluated patient - Santyl dressing changes daily (12) Tobacco abuse Is this a current diagnosis for this admission?: Yes Plan: Implement nicotine patch. Pt educated >3 minutes on tobacco cessation. Provided encouragement to stop smoking. (13) Lactic acid acidosis Is this a current diagnosis for this admission?: Yes Plan: Elevated lactic acid level today, 2.4. Interestingly has tachycardia, without leukocytosis. Fluids provided. Nguyen catheter removed. F/u BC without growth 48hrs. currently on vanc as above. Follow up labs pending. - Plan Summary Summary: Continue with vancomycin as per pharmacy dosing with EOT 04/07. Continue to follow-up blood cultures. If able to get outpatient vanc at infusion clinic consider that so pt can dc home. - Time Time Spent with patient: 35 or more minutes Smoking Cessation Education: 3 to 10 minutes Medications reviewed and adjusted accordingly: Yes Anticipated Discharge Disposition: Home, Self Care Anticipated Discharge Timeframe: 03/08
[2020-04-01] MEDS: VANCOMYCIN HCL 1,000 MG in DEXTROSE 5%-WATER 250 ML IV SCH ×2 (17:41→17:42)
--- NOTE | 2020-04-01 18:37 | PDOC CONSULTATION ---
Consultation-Blank Consultation: Behavioral Health Consult: Chronic Alcohol Abuse/Visual and Auditory Hallucinations/Depression Discussion with Attending Hospitalist at 1522 and 1830. Chart review conducted at 1527 and 1751. Patient is a 59 year old female admitted to hospitalist services for shock, alcohol withdrawal, alcohol encephalopathy, enterococcal bacteremia, congestive heart failure, and chronic obstructive pulmonary disease. Today is day 8 of admission. She was positive for opiates, prescribed Subutex, and goes to pain management. informed medical staff patient drinks 6-12 beers a day, as well as wine and vodka in addition on most days. She has her , son and daughter are CNAs that help at home, and a brother helps as well. told medical staff patient uses a cane to get around, is typically able to perform her own ADLs, and had not had any recent falls. Head CT dated 03/24/2020 had neurodegenerative language. Hospital continued home medications which included Risperdal 0.25MG twice a day, Subutex 6MG SL twice a day, and they added Ativan 1MG every by mouth every 6 hours as needed and IV every 4 hours as needed. Attending Hospitalist noted patient was depressed (patient said she wanted to talk with someone), sad, anxious, and teary eyed. She noted hallucinations: patient would not go back in her room saying there were snakes crawling everywhere, talking to people not there, on knees cleaning the floor with a towel and saying she was bleaching her floors at home, and saying the elephant will sit on her if she gets into bed. She further stated patient's eyes snap around the room as if responding to internal stimuli during conversations, but she looks back and tries to continue the conversation. Clinical Presentation: Alcohol Withdrawal Delirium (DTs) Medication recommendations made by the psychiatric medication provider Dr. Shanel MICHEL., includes: Continue Risperdal 0.25MG twice a day for behaviors (not to be used for hallucinations) Change Ativan to 1MG IV/IM/PO every 6 hours as needed for agitation (not to be used for hallucinations, will keep patient confused) Add Depakote DR 250MG twice a day for calcium-ion connectivity which will aid in hallucinations but may be slow Add Buspar 5MG twice a day for anxiety/calming effect/depression/sleep Impression/Plan: Conducted chart review only today for medication recommendations in order to assist with stabilization of likely alcohol withdrawal delirium. Plan to see patient in person tomorrow (04/02/2020). Consulted with Dr. Hines regarding the management and care of patient. Attending Hospitalist made aware of recommendations at 1830 via telephone. Though the withdrawal, or actual alcohol is out of patient's body, the physiological effects may have improved, but the delirium (confusion, neurological effects from the damage the alcohol has done to the brain, specifically the calcium-ion channels which is what increases the potential for seizures, it is like a protection stage prior to when seizures often occur) takes place. This is the Alcohol Delirium Tremens which typically occurs 7-10 day period after alcohol withdrawal. It varies depending on how much the individual drank, as well a co-morbid medical issues.
[2020-04-01] MEDS: LORAZEPAM INJ 2 MG/1 ML VIAL IV PRN (20:02)
[2020-04-01] MEDS: DIVALPROEX SODIUM 250 MG TAB.SR.24H PO SCH (20:02)
[2020-04-01 20:40] LABS: HEMATOCRIT 33.8 % (36.0-47.0); HEMOGLOBIN 11.2 g/dL (12.0-15.5); MEAN CORPUSCULAR HEMOGLOBIN 31.8 pg (27.0-33.4); MEAN CORPUSCULAR HGB CONC 33.2 g/dL (32.0-36.0); MEAN CORPUSCULAR VOLUME 96 fl (80-97); PLATELET COUNT 188 10^3/uL (150-450); RED BLOOD COUNT 3.52 10^6/uL (3.72-5.28); RED CELL DISTRIBUTION WIDTH 17.1 % (11.5-14.0); WHITE BLOOD COUNT 9.8 10^3/uL (4.0-10.5)
--- NOTE | 2020-04-01 21:38 | Progress Note ---
Provider Note Provider Note: CARDIOLOGY PROGRESS NOTE by Dr. Cassandra Davis on 04/01/2020. OBJECTIVE: The patient is very confused and delirious but in no acute distress. She does not seem to be agitated. She is on antibiotics for Enterococcus faecalis sepsis. Their recommendations are to continue antibiotics till 04/07/2020. The patient denies any chest pain or discomfort. There is no shortness of breath. Her lungs sound better. PHYSICAL EXAMINATION: The patient appears to be chronically ill and malnourished. She is confused delirious but in no acute distress. Selected Entries 04/01/20 04/02/20 10:55 12:00 Temperature 98 F 98.3 F Temperature Oral Oral Source Pulse Rate 118 H 93 Respiratory 19 17 Rate Blood Pressure 101/68 Blood Pressure 120/52 L [Right Upper Arm] Blood Pressure 79 Mean Blood Pressure 74 Mean [Right Upper Arm] Blood Pressure Supine Position [Right Upper Arm] BP Location Left Arm BP Position Sitting O2 Sat by Pulse 93 100 Oximetry Oxygen Delivery Room Air Method ( includes room air) Oxygen Delivery Room Air Method HEAD: Is atraumatic normocephalic. EYES: Pupils equal round regular reactive to light accommodation. Extraocular movements are normal. There is no conjuncti constantine pallor. There is no scleral icterus. EARS: Tympanic membranes are intact. External auditory canals are clear. MOUTH: Mucous membranes of mouth are moist. Tongue is moist. There is no ulcers. THROAT: There is no redness of the oropharynx. There is no exudates. NECK: There is no JVD carotids are equal there is no bruit there is no lymphadenopathy. There is no goiter. LUNGS: There is bilateral scattered rhonchi and bilateral wheezing. No rales of CHF. HEART: S1-S2 is heard there is no S3 gallop there is no S4 gallop. There is systolic murmur left sternal border and the apex there is no rub. ABDOMEN: Soft nontender there is no paraspinal megaly. Bowel sounds are well heard. EXTREMITIES: Femorals are diminished. There is no femoral bruits leg pulses are diminished. There is mild pedal edema bilaterally. There is no DVT or cellulitis. There is no calf tenderness. There is no cyanosis or clubbing. MANAGER MARKETING COMMUNICATION: The patient is conscious awake alert, but confused and disoriented x3. PSYCHIATRIC: The patient is delirious but does not appear to be agitated. Results Laboratory Results: 04/01/20 14:50 04/01/20 14:50 04/01/20 04/01/20 04/01/20 08:00 08:00 14:50 WBC Cancelled RBC Cancelled Hgb Cancelled Hct Cancelled MCV Cancelled MCH Cancelled MCHC Cancelled RDW Cancelled Plt Count Cancelled Seg Neutrophils % Sodium 133.8 L 135.2 L Potassium 4.5 3.7 Chloride 99 95 L Carbon Dioxide 30 30 Anion Gap 5 10 BUN 8 9 Creatinine 0.28 L 0.34 L Est GFR ( Amer) > 60 > 60 Glucose 86 151 H Lactic Acid Calcium 8.9 9.3 04/01/20 04/01/20 14:50 14:50 WBC 9.3 RBC 3.77 Hgb 11.9 L Hct 36.4 MCV 96 MCH 31.6 MCHC 32.7 RDW 17.4 H Plt Count 163 Seg Neutrophils % 91.8 H Sodium Potassium Chloride Carbon Dioxide Anion Gap BUN Creatinine Est GFR ( Amer) Glucose Lactic Acid 2.4 H Calcium 03/24/20 03/24/20 03/25/20 20:10 20:10 02:47 Creatine Kinase 32 Troponin I 0.097 0.114 NT-Pro-B Natriuret Pep 2480 H 03/25/20 03/25/20 03/25/20 02:47 08:06 14:42 Creatine Kinase Troponin I 0.134 0.166 NT-Pro-B Natriuret Pep 2080 H 03/26/20 03/27/20 04:11 04:10 Creatine Kinase Troponin I NT-Pro-B Natriuret Pep 3290 H 6880 H Impressions: Head CT 03/24/20 20:09 IMPRESSION: 1. No acute intracranial abnormalities. Nonspecific, mild white matter change most likely small vessel ischemic disease, age indeterminate. 2. CT is insensitive for early evaluation of acute stroke. If there is clinical concern for acute ischemia, an MRI may be considered. 3. Suspected acute on chronic sinus disease. Chest X-Ray 03/26/20 05:00 IMPRESSION: Increasing atelectasis or infiltrate right lower lobe. IMPRESSION/RECOMMENDATION: 1. Acute exacerbation of COPD. Continue anti-COPD medication and antibiotics. At present seems that her acute exacerbation resolving, and recommend tapering down steroids. 2. SEPSIS: Positive blood cultures for Enterococcus faecalis. ID consult via Internet. Their recommendations have been noted. 3. 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 4. Acute on chronic) systolic heart failure [acute on chronic cor pulmonale]. Continue diuretics continue current medication. At present seems to be compensated. 5. Pulmonary hypertension: Agree with starting the patient oncalcium channel blockers. 6. History of hypertension: Of late the patient has chronic hypotension requiring midodrine to keep her blood pressure well controlled. 7. History of chronic alcohol abuse. Patient counseled to refrain from alcohol. 8. Acute renal failure on admission. Renal function now improved GFR is greater than 60. 9. Sinus bradycardia on admission most likely this along with hypertension secondary to patient's acute renal insufficiency due to possibly dehydration and right heart failure and hyperkalemia. Note that the hyperkalemia is resolved. Medications reviewed. Medical management and medical regimen discussed with attending The case. Medical decision making is of moderate complexity. 40 minutes spent on patient, with more than 50% spent on direct patient care. Will follow
[2020-04-02] MEDS: BUSPIRONE HCL 10 MG TABLET PO SCH ×2 (00:32→12:04)
[2020-04-02] MEDS: HEPARIN SOD (PORCINE) 5,000 UNIT/ML 1 ML VIAL SUBCUT SCH ×3 (00:33→14:56)
[2020-04-02] MEDS: BUPRENORPHINE HCL 2 MG SUBLINGUAL TABLET SL SCH ×2 (00:34→12:05)
[2020-04-02] MEDS: IPRATROPIUM/ALBUTEROL 0.5-2.5 MG/3 ML AMPUL NEB SCH ×4 (02:14→19:10)
[2020-04-02 06:26] LABS: VANCOMYCIN,TROUGH 10.3 ug/mL (5.0-20.0)
[2020-04-02 06:31] LABS: ANION GAP 9 (5-19); BLOOD UREA NITROGEN 9 mg/dL (7-20); CALCIUM 9.7 mg/dL (8.4-10.2); CARBON DIOXIDE 34 mmol/L (22-30); CHLORIDE 95 mmol/L (98-107); GLUCOSE 103 mg/dL (75-110); POTASSIUM 3.7 mmol/L (3.6-5.0)
[2020-04-02] MEDS: VANCOMYCIN HCL 1,000 MG in DEXTROSE 5%-WATER 250 ML IV SCH ×2 (06:31→18:24)
[2020-04-02] MEDS: PANTOPRAZOLE SODIUM 40 MG TABLET.DR PO SCH ×2 (07:54→15:30)
[2020-04-02] MEDS: GUAIFENESIN SYRP 200 MG/10 ML UDC PO PRN (07:56)
[2020-04-02] MEDS: TRAMADOL HCL 50 MG TABLET PO PRN (08:30)
[2020-04-02] MEDS: LORAZEPAM INJ 2 MG/1 ML VIAL IV PRN ×2 (08:36→14:56)
[2020-04-02] MEDS ORDERED: DILTIAZEM HCL 120 MG CAP.SR.24H PO SCH (10:00)
[2020-04-02] MEDS: FOLIC ACID 1 MG TABLET PO SCH (12:03)
[2020-04-02] MEDS: DILTIAZEM HCL 180 MG CAPSULE.CR PO SCH (12:03)
[2020-04-02] MEDS: POTASSIUM CHLORIDE 10 MEQ TABLET.ER PO SCH (12:04)
[2020-04-02] MEDS: DOCUSATE SODIUM 100 MG CAPSULE PO SCH (12:04)
[2020-04-02] MEDS: MULTIVITAMIN TABLET PO SCH (12:04)
[2020-04-02] MEDS: FUROSEMIDE 20 MG TABLET PO SCH (12:04)
[2020-04-02] MEDS: DIVALPROEX SODIUM 250 MG TAB.SR.24H PO SCH ×2 (12:04→17:22)
[2020-04-02] MEDS: FLUTICASONE/VILANTEROL 200-25 MCG/DOSE IH SCH (12:05)
[2020-04-02] MEDS: THIAMINE HCL 100 MG TABLET PO SCH (12:05)
[2020-04-02] MEDS: RISPERIDONE 0.5 MG TAB.RAPDIS PO SCH ×2 (12:06→17:22)
[2020-04-02] MEDS: MIDODRINE HCL 5 MG TABLET PO SCH ×3 (12:07→17:23)
[2020-04-02] MEDS: COLLAGENASE CLOSTRIDIUM HIST. OINT 30 GM TOP SCH (12:07)
--- NOTE | 2020-04-02 15:45 | PDOC PROGRESS REPORT ---
Subjective Date:: 04/02/20 Subjective:: Patient is a 59-year-old -[place] female presented to [facility] emergency department via EMS on 03/24/2020 with altered mental status. Briefly, patient was admitted to the ICU for altered mental status, hypotension, and bradycardia. Required short dopamine drip with improvement of her bradycardia and hypotension. She experienced DT secondary to alcoholic w ithdrawal in ICU. Transferred out of ICU 03/27. On antibiotics for Enterococcus bacteremia. Patient seen on morning rounds. She is sitting comfortably in bed with a dry starch supervisor. She seen eating. She is no longer on oxygen . Her hawkins catheter has been removed, she is creating urine without difficulty. She had a bowel movement earlier this morning which she left in the toilet for me to see. This was a well formed bowel movement. She does have some gas, but is not having diarrhea. Patient denies any fever, chills, chest pain or discomfort, palpitations, PND, orthopnea, lower extremity edema. When I inquire about hallucinations she denies. Discussed with nursing. Pt's heart rate has been elevated in 120s. Cardiac strips reviewed patient sinus tach no evidence of SVT or A. fib. I have increased Cardizem dose, additionally lorazepam on board if related to DTs should help. Per nursing patient continues to leave her room noting snakes on the floor. Would like medication recommendations as per yesterday. Psych plans to see patient in person today. No further complaints or concerns per nursing. Reason For Visit: SH[facility] ABTUNDED [facility] Physical Exam Vital Signs: Temp Pulse Resp BP Pulse Ox 98.3 F 93 17 120/52 L 100 04/02/20 12:00 04/02/20 12:00 04/02/20 12:00 04/02/20 12:00 04/02/20 12:00 Intake & Output 04/01/20 04/02/20 04/03/20 06:59 06:59 06:59 Intake Total 1150 770 250 Output Total 2550 500 Balance -1400 270 250 Weight 71.7 kg 70.1 kg Additional comments: General appearance: PRESENT: Alert, cooperative, pleasant with interactions. In no acute distress. Eye exam: PRESENT: EOMI Mouth exam: PRESENT: moist, tongue midline Teeth exam: PRESENT: poor dentation Respiratory exam: PRESENT: symmetrical, unlabored, persistent rhonch. Wheezing has resolved. ABSENT: stridor, tachypnea Cardiovascular exam: PRESENT: Tachycardic. GI/Abdominal exam: PRESENT: soft. ABSENT: distended, firm, tenderness Extremities exam: PRESENT: full ROM, pedal edema improved from previous - bilaterally Neurological exam: PRESENT: alert, awake, oriented to person Psychiatric exam: PRESENT: anxious, other -disorganized thought process. Skin exam: PRESENT: dry, other - Chronic appearing ulceration to dorsum of right foot. ABSENT: erythema, edema, warmth, redness Results Laboratory Results: 04/01/20 20:31 04/02/20 05:40 04/01/20 04/01/20 04/01/20 14:50 14:50 14:50 WBC 9.3 RBC 3.77 Hgb 11.9 L Hct 36.4 MCV 96 MCH 31.6 MCHC 32.7 RDW 17.4 H Plt Count 163 Seg Neutrophils % 91.8 H Sodium 135.2 L Potassium 3.7 Chloride 95 L Carbon Dioxide 30 Anion Gap 10 BUN 9 Creatinine 0.34 L Est GFR ( Amer) > 60 Glucose 151 H Lactic Acid 2.4 H Calcium 9.3 Magnesium 04/01/20 04/01/20 04/02/20 20:31 20:31 05:40 WBC 9.8 RBC 3.52 L Hgb 11.2 L Hct 33.8 L MCV 96 MCH 31.8 MCHC 33.2 RDW 17.1 H Plt Count 188 Seg Neutrophils % Sodium 138.1 Potassium 3.7 Chloride 95 L Carbon Dioxide 34 H Anion Gap 9 BUN 9 Creatinine 0.38 L Est GFR ( Amer) > 60 Glucose 103 Lactic Acid 1.9 Calcium 9.7 Magnesium 04/02/20 05:40 WBC RBC Hgb Hct MCV MCH MCHC RDW Plt Count Seg Neutrophils % Sodium Potassium Chloride Carbon Dioxide Anion Gap BUN Creatinine Est GFR ( Amer) Glucose Lactic Acid Calcium Magnesium 1.4 L 03/24/20 03/24/20 03/25/20 20:10 20:10 02:47 Creatine Kinase 32 Troponin I 0.097 0.114 NT-Pro-B Natriuret Pep 2480 H 03/25/20 03/25/20 03/25/20 02:47 08:06 14:42 Creatine Kinase Troponin I 0.134 0.166 NT-Pro-B Natriuret Pep 2080 H 03/26/20 03/27/20 04:11 04:10 Creatine Kinase Troponin I NT-Pro-B Natriuret Pep 3290 H 6880 H Impressions: Head CT 03/24/20 20:09 IMPRESSION: 1. No acute intracranial abnormalities. Nonspecific, mild white matter change most likely small vessel ischemic disease, age indeterminate. 2. CT is insensitive for early evaluation of acute stroke. If there is clinical concern for acute ischemia, an MRI may be considered. 3. Suspected acute on chronic sinus disease. Chest X-Ray 03/26/20 05:00 IMPRESSION: Increasing atelectasis or infiltrate right lower lobe. Assessment and Plan - Diagnosis (1) Coagulase negative Staphylococcus bacteremia Is this a current diagnosis for this admission?: Yes Plan: Continue vanc. 3 out of 4 BCx bottles have come back with Methicillin resistant coagulase- negative staph suggestive of true bacteremia. Infection presented despite vancomycin since 03/26. Switched to daptomycin 03/31, discontinued 04/01 as per ID recommendations. ID consulted, note reviewed case discussed recommendations as follows: - "Blood culture positive for Enterococcus faecalis, source could be the foot vs aspiration as well." - "Vancomycin is adequate in the setting of penicillin allergy." - "Recommend to switch back to vancomycin to treat for 14 days for bacteremia." Vancomycin restarted 03/31, dosing as per pharmacist. - EOT for bacteremia will be 04/07/20 - Daily BMP BC 03/30 without growth 24hrs. (2) Enterococcal bacteremia Is this a current diagnosis for this admission?: Yes Plan: Continue Vanco as above. Has been on vancomycin since 03/26/2020. - Blood cultures 03/28 clearance of Enterococcus. - BC 03/30 without growth 48 hours. - Changed to daptomycin 03/30. Id consulted as above. - Vancomycin restarted 03/31, dosing as per pharmacist. - EOT for bacteremia will be 04/07/20 (3) COPD (chronic obstructive pulmonary disease) Qualifiers: COPD type: COPD with acute exacerbation Qualified Code(s): J44.1 - Chronic obstructive pulmonary disease with (acute) exacerbation Is this a current diagnosis for this admission?: Yes Plan: Wheezing/exacerbation resolved. Received 3 total days of prednisone therapy. Stopped today given patient's agitation and hallucinations potential prednisone in part of a multifocal cause. (4) Alcohol withdrawal Qualifiers: Complication of substance-induced condition: with unspecified complication Qualified Code(s): F10.239 - Alcohol dependence with withdrawal, unspecified Is this a current diagnosis for this admission?: Yes Plan: Continue to hallucinate. See nursing note. Hard to tell if this is related to alcohol withdrawal, alcoholic cephalopathy, medications, or delirium Discussed with psych. Chart evaluated in detail. Provided med recommendations yesterday with plan to see patient today in person, appreciate recommendations. - Potential patient experiencing DTs as per psych, though given time span from last drink suspect less likely. - Continue respiradone - Continue Ativan IV q 6hr - Continue Buspar 5mg BID - Continue Depakote ER 250mg BID Ativan seems to be most beneficial to the patient. (5) Alcoholic encephalopathy Is this a current diagnosis for this admission?: Yes Plan: There is a chance that patient's current mental status is secondary to her long- term alcohol abuse and alcoholic encephalopathy. Plan to call her and establish what patient's baseline is. Otherwise medications as per psych above. Continue thiamine and folate supplementation. (6) CHF (congestive heart failure) Qualifiers: Heart failure type: unspecified Heart failure chronicity: unspecified Qualified Code(s): I50.9 - Heart failure, unspecified Is this a current diagnosis for this admission?: Yes Plan: Noted improvement in lower extremity edema and shortness of breath no longer requiring O2 supplementation at this time. Without PND or orthopnea. - Continue home dose po lasix. - Increased dose of Cardizem Echo (03/25): LV EF 55% with mild concentric LVH. Grade 1/4 diastolic dysfunction. RA mild to moderately dilated. RV mild to moderately dilated. Mild mitral regurgitation, RVSP 50-55mmHg. (7) Pulmonary hypertension Is this a current diagnosis for this admission?: Yes (8) Septic shock Is this a current diagnosis for this admission?: Yes Plan: Resolved. (9) Lung cancer Qualifiers: Laterality: left Lung location: overlapping sites Qualified Code(s): C34.82 - Malignant neoplasm of overlapping sites of left bronchus and lung Is this a current diagnosis for this admission?: Yes Plan: Outpt f/u with Dr. Robertson (10) Diarrhea Qualifiers: Diarrhea type: unspecified type Qualified Code(s): R19.7 - Diarrhea, unspecified Is this a current diagnosis for this admission?: Yes Plan: Resolved. Though C. difficile test was never collected. Stool today was well formed. (11) Pressure ulcer of dorsum of right foot Is this a current diagnosis for this admission?: Yes Plan: Potentially other source of infection. Wound care on board, dressing changes as per their recommendations. (12) Tobacco abuse Is this a current diagnosis for this admission?: Yes Plan: Implement nicotine patch. Pt educated >3 minutes on tobacco cessation. Provided encouragement to stop smoking. (13) Lactic acid acidosis Is this a current diagnosis for this admission?: Yes Plan: Resolved. Repeat lab 1.9. Found to be elevated yesterday at 2.4 Interestingly has tachycardia, without leukocytosis. Gentle fluids provided given history of heart failure. Hawkins catheter removed yesterday F/u BC without growth 72 hours currently on vanc as above. (14) Hypomagnesemia Is this a current diagnosis for this admission?: Yes Plan: Magnesium slightly low at 1.4 - Often seen with DTs - IV mag initiated for correction Monitor morning BMP - Plan Summary Summary: Continue with vancomycin as per pharmacy dosing with EOT 04/07. My biggest concern for her today is her hallucinations and her tachycardia. We have her on cardiac monitoring notable for sinus tach. Cardizem dose increased. Currently receiving Ativan 1 mg IV will increase this to 2 mg IV has shown greatest impact on patient overall including her heart rate. As her blood pressure is stable we will hold on her Midodrine and just plan to monitor that closely. I have implemented multiple medications including diazepam, BuSpar, Depakote and risperidone as per psych recommendations. They plan to see her in person today. Appreciate their further recommendations regarding her hallucinations. - Time Time Spent with patient: 35 or more minutes Smoking Cessation Education: 3 to 10 minutes Medications reviewed and adjusted accordingly: Yes Anticipated Discharge Disposition: Home, Self Care Anticipated Discharge Timeframe: 04/07
--- NOTE | 2020-04-02 16:11 | PDOC CONSULTATION ---
Consultation-Blank Consultation: Behavioral Health Consult: Chronic Alcohol Abuse/Visual and Auditory Hallucinations/Depression Chart review conducted at 1045. Attempted to call patient's spouse at [phone] but no answer at 3 different numbers. Observed patient interaction with staff at 1350. Evaluation with patient from [phone]. Patient is a 59 year old female admitted to hospitalist services for shock, alcohol withdrawal, alcohol encephalopathy, enterococcal bacteremia, congestive heart failure, and chronic obstructive pulmonary disease. Today is day 9 of admission. Provided medication recommendation yesterday to better address behaviors and hallucinations while being mindful of the Head CT language consistent with neurodegenerative processes and the symptoms likely being related to alcohol withdrawal delirium. These medications were started last evening so this morning made the second dosing of it. Tried calling patient's Shadi Trejo for collateral but no answer at all three numbers: [phone] (just rang and rang, no option for leaving message), (likely patient's cell phone), (said number not available try again later). Observed patient using her walker to walk down the hallway her room is on. She was appropriately interacting with cafeteria staff and answering questions about what she wanted for dinner. She commented "oh I don't have my mask, I need to go back to my room." She turned around using walker accordingly and went back to her room. She got to the room before her's and looked in, then continued to her room, looked in, then turned to go back to room before hers when the transportation worker noted which room was hers. She inquired about dinner time and was i nformed it would be around 1600. Interaction with patient was appropriate. She did engage and answer questions when addressed. She denied mental health history but stated "I am a little depressed, I hate being told what to do, I am very obedient, but it is more like I am controlled." She became tearful when mentioning this. She commented how "everything I do is related to alcohol, there are certain tests and medical issues that have nothing to do with the alcohol." Patient noted "my used to drink, then he quit, now he rags on me about needing to quit, it bothers me, I stood by his side for either or." Patient reported "I had quit drinking but started back up casually with friends that had moved this way. She then went on to say how her two children "tease me about the drinking, but they drink, and they pick on me for smoking cigarettes, they try to give me none at all which stresses me out, now a pack lasts me 3 days, I have cut back, I mean I have been smoking 48-49 years." She stated she didn't know she was on psychiatric medication until yesterday. She stated her Primary Care, Lung, Cancer, and Heart doctor all prescribe her medications. She had newspapers on the floor linear to her bed. She stated she had been tending to her foot wound care, didn't get up in time to use the restroom, and was hoping for pull ups. She commented on liking having someone to talk to. She asked if this typewriter tester could suggest things for her to do. Explained she should do things to keep her busy. Noted at home she could play with a deck of cards, do crossword puzzles or seek and finds, or put a puzzle together. Patient identified she has about 5 decks of cards at home and an adult activity book she got when she first found out about her cancer and was going to [facility] often for tests. She asked about things to do in the hospital. This typewriter tester noted would obtain things to do. Patient was alert and oriented to self, person, place, and situation. Mood was at first euthymic with congruent affect. She did endorse being depressed and became tearful when talking about being told what to do and feeling controlled (seemed to be related to her family). She denied current suicidal and homicidal ideation which were never presenting concerns. Patient did not appear to be responding to internal stimuli as evidenced by fair eye contact, answering questions appropriately when addressed, carrying on dialogue conversation, and expressing self/wants/needs. Thought processes were more linear and organized. Conversational speech was within normal limits for rate, tone and prosody. Intellectual abilities are estimated to be average. Insight, judgment and impulse control were fair as evidenced by decreased psychosis. She was cooperative and pleasant. Clinical Presentation: Alcohol Withdrawal Delirium (DTs) Medication recommendations made by the psychiatric medication provider Dr. Shanel MICHEL., includes: After 2-3 days check Depakote Level If therapeutic keep at 250MG twice a day If not therapeutic and she has tolerated it well then can increase to 500MG twice a day Impression/Plan: Patient is cleared from acute psychiatric services. Today her psychosis appears to be lessened if present. It was felt to be related to alcohol withdrawal delirium. Medication recommendations were provided yesterday and started last evening. Consulted with Dr. Hines regarding the management and care of patient. Attending Hospitalist aware of recommendations. Please re consult [facility] Behavioral Health if patient does not continue to improve or other issues occur.
[2020-04-02] MEDS: MAGNESIUM SULFATE/D5W 1 GM/100 ML RTUPB IV SCH ×2 (17:06→20:54)
[2020-04-02 20:16] LABS: HEMATOCRIT 34.5 % (36.0-47.0); HEMOGLOBIN 11.4 g/dL (12.0-15.5); MEAN CORPUSCULAR HEMOGLOBIN 31.8 pg (27.0-33.4); MEAN CORPUSCULAR VOLUME 96 fl (80-97); PLATELET COUNT 201 10^3/uL (150-450); RED BLOOD COUNT 3.57 10^6/uL (3.72-5.28); RED CELL DISTRIBUTION WIDTH 17.6 % (11.5-14.0); WHITE BLOOD COUNT 8.5 10^3/uL (4.0-10.5)
[2020-04-02] MEDS ORDERED: MAGNESIUM SULFATE/D5W 1 GM/100 ML RTUPB IV ONE (20:30)
--- NOTE | 2020-04-02 20:34 | Progress Note ---
Provider Note Provider Note: CARDIOLOGY PROGRESS NOTE by Dr. Cassandra Davis on 04/02/2020. OBJECTIVE: The patient is very confused and delirious, but less so, but in no acute distress. She does not seem to be agitated. Her heart rate is still in the 120s. Monitor shows sinus tachycardia.. Her Cardizem has been increased. Her blood cultures grew Enterococcus faecalis and ID consult has been obtained via the Internet. Their recommendations are to continue antibiotics till 04/07/2020. The patient denies any chest pain or discomfort. There is no shortness of breath. Her lungs sound better. PHYSICAL EXAMINATION: The patient appears to be chronically ill and malnourished. She is confused delirious but in no acute distress. HEAD: Is atraumatic normocephalic. EYES: Pupils equal round regular reactive to light and accommodation. Extraocular movements are normal. There is no conjunctival pallor. There is no scleral icterus. EARS: Tympanic membranes are intact. External auditory canals clear NOSE: There is no deviated nasal septum. There is no inflammation nasal mucous there is no redness of the oropharynx. There is no exudates. Membrane. MOUTH: Mucous membranes of mouth are moist. Tongue is moist. SKIN: There is no skin rashes. There is no petechia or ecchymosis. There is no skin lesions. THROAT: NECK: Supple. There is no JVD. Carotids are equal there is no bruit there is no lymphadenopathy. There is no accessory muscle respiration use. Trachea central. LUNGS: There is diminished air entry prolonged expiration with a few scattered rhonchi. There is no wheezing today. There is hyperresonance on percussion. HEART: S1-S2 is heard. There is no S3 gallop. There is no S4 gallop. There is systolic murmur left sternal border and the apex there is no rub. ABDOMEN: Soft. Nontender. There is no paraspinal megaly bowel sounds are well heard. EXTREMITIES: Femorals are diminished. There is no femoral bruits. Leg pulses are diminished. There is no pedal edema. There is no DVT or cellulitis. There is no cyanosis or clubbing. OFFICE MACHINES TEACHER: The patient is conscious awake alert, but seems to be confused. There is no focal deficits. PSYCHIATRIC: The patient does not appear to be agitated or or anxious.. Labs- All tests 24 hr 04/01/20 04/01/20 04/02/20 20:31 20:31 05:40 WBC 9.8 RBC 3.52 L Hgb 11.2 L Hct 33.8 L MCV 96 MCH 31.8 MCHC 33.2 RDW 17.1 H Plt Count 188 Sodium Potassium Chloride Carbon Dioxide Anion Gap BUN Creatinine Est GFR ( Amer) Est GFR (MDRD) Non-Af Glucose Lactic Acid 1.9 Calcium Magnesium Time Trough Drawn 0540 Vancomycin Trough 10.3 04/02/20 04/02/20 04/02/20 05:40 05:40 19:26 WBC 8.5 RBC 3.57 L Hgb 11.4 L Hct 34.5 L MCV 96 MCH 31.8 MCHC 33.0 RDW 17.6 H Plt Count 201 Sodium 138.1 Potassium 3.7 Chloride 95 L Carbon Dioxide 34 H Anion Gap 9 BUN 9 Creatinine 0.38 L Est GFR ( Amer) > 60 Est GFR (MDRD) Non-Af > 60 Glucose 103 Lactic Acid Calcium 9.7 Magnesium 1.4 L Time Trough Drawn Vancomycin Trough Chest X-Ray 03/24/20 20:08 IMPRESSION: Improved aeration of the right lung base. Overall, the lungs appear clear. Stable cardiomegaly. Head CT 03/24/20 20:09 IMPRESSION: 1. No acute intracranial abnormalities. Nonspecific, mild white matter change most likely small vessel ischemic disease, age indeterminate. 2. CT is insensitive for early evaluation of acute stroke. If there is clinical concern for acute ischemia, an MRI may be considered. 3. Suspected acute on chronic sinus disease. Chest X-Ray 03/26/20 05:00 IMPRESSION: Increasing atelectasis or infiltrate right lower lobe. IMPRESSION/RECOMMENDATION: 1. Acute exacerbation of COPD. Continue anti-COPD medication and antibiotics. Clinically recommend steroids. 2. SEPSIS: Positive blood cultures for Enterococcus faecalis. ID consult via Internet. Their recommendations have been noted. 3. Confusion and delirium: This probably secondary to sepsis and with the pat ient's underlying past EtOH damage to the brain. 4. Acute on chronic) systolic heart failure [acute on chronic cor pulmonale]. Continue diuretics continue current medication. 5. Pulmonary hypertension: Agree with starting the patient on calcium channel blockers. 6. History of hypertension: Of late the patient has chronic hypotension requiring midodrine to keep her blood pressure well controlled. 7. History of chronic alcohol abuse. Patient counseled to refrain from alcohol. 8. Acute renal failure on admission. Renal function now improved GFR is greater than 60. 9. Sinus bradycardia on admission most likely this along with hypertension secondary to patient's acute renal insufficiency due to possibly dehydration and right heart failure and hyperkalemia. Note that the hyperkalemia is resolved. No further episodes of bradycardia. 10. Hypomagnesemia: Replace magnesium. Medications reviewed. Medical management and medical regimen discussed with attending The case. Medical decision making is of moderate complexity. 40 minutes spent on patient, with more than 50% spent on direct patient care. Will follow
[2020-04-03] MEDS ORDERED: MAGNESIUM SULFATE/D5W 1 GM/100 ML RTUPB IV ONE (00:10)
[2020-04-03] MEDS: BUSPIRONE HCL 10 MG TABLET PO SCH ×3 (00:11→21:12)
[2020-04-03] MEDS: HEPARIN SOD (PORCINE) 5,000 UNIT/ML 1 ML VIAL SUBCUT SCH ×4 (00:11→21:11)
[2020-04-03] MEDS: BUPRENORPHINE HCL 2 MG SUBLINGUAL TABLET SL SCH ×3 (00:12→21:11)
[2020-04-03] MEDS: IPRATROPIUM/ALBUTEROL 0.5-2.5 MG/3 ML AMPUL NEB SCH ×4 (02:08→20:14)
[2020-04-03] MEDS ORDERED: IPRATROPIUM/ALBUTEROL 0.5-2.5 MG/3 ML AMPUL NEB ONE ×2 (04:21→04:30)
[2020-04-03] MEDS: VANCOMYCIN HCL 1,000 MG in DEXTROSE 5%-WATER 250 ML IV SCH ×2 (06:32→17:28)
[2020-04-03 07:24] LABS: HEMATOCRIT 30.5 % (36.0-47.0); HEMOGLOBIN 10.3 g/dL (12.0-15.5); MEAN CORPUSCULAR HEMOGLOBIN 32.1 pg (27.0-33.4); MEAN CORPUSCULAR HGB CONC 33.8 g/dL (32.0-36.0); MEAN CORPUSCULAR VOLUME 95 fl (80-97); PLATELET COUNT 189 10^3/uL (150-450); RED BLOOD COUNT 3.21 10^6/uL (3.72-5.28); RED CELL DISTRIBUTION WIDTH 17.1 % (11.5-14.0); WHITE BLOOD COUNT 11.8 10^3/uL (4.0-10.5)
[2020-04-03 07:50] LABS: BLOOD UREA NITROGEN 8 mg/dL (7-20); GLUCOSE 85 mg/dL (75-110)
[2020-04-03 07:56] LABS: ANION GAP 6 (5-19); CARBON DIOXIDE 32 mmol/L (22-30); CHLORIDE 96 mmol/L (98-107)
[2020-04-03] MEDS: DILTIAZEM HCL 180 MG CAPSULE.CR PO SCH (11:16)
[2020-04-03] MEDS: DOCUSATE SODIUM 100 MG CAPSULE PO SCH (11:16)
[2020-04-03] MEDS: POTASSIUM CHLORIDE 10 MEQ TABLET.ER PO SCH (11:16)
[2020-04-03] MEDS: FUROSEMIDE 20 MG TABLET PO SCH (11:16)
[2020-04-03] MEDS: PANTOPRAZOLE SODIUM 40 MG TABLET.DR PO SCH ×2 (11:16→15:06)
[2020-04-03] MEDS: FOLIC ACID 1 MG TABLET PO SCH (11:16)
[2020-04-03] MEDS: DIVALPROEX SODIUM 250 MG TAB.SR.24H PO SCH ×2 (11:16→17:28)
[2020-04-03] MEDS: RISPERIDONE 0.5 MG TAB.RAPDIS PO SCH ×2 (11:17→17:28)
[2020-04-03] MEDS: MULTIVITAMIN TABLET PO SCH (11:17)
[2020-04-03] MEDS: MIDODRINE HCL 5 MG TABLET PO SCH ×3 (11:17→17:28)
[2020-04-03] MEDS: COLLAGENASE CLOSTRIDIUM HIST. OINT 30 GM TOP SCH (11:18)
[2020-04-03] MEDS: TRAMADOL HCL 50 MG TABLET PO PRN (11:18)
[2020-04-03] MEDS: THIAMINE HCL 100 MG TABLET PO SCH (11:18)
[2020-04-03] MEDS: FLUTICASONE/VILANTEROL 200-25 MCG/DOSE IH SCH (11:19)
[2020-04-03] MEDS: GUAIFENESIN SYRP 200 MG/10 ML UDC PO PRN ×3 (11:48→22:16)
--- NOTE | 2020-04-03 13:51 | Progress Note ---
Provider Note Provider Note: CARDIOLOGY PROGRESS NOTE by Dr. Cassandra Davis on 04/03/2020. SUBJECTIVE: The patient is not delirious or confused anymore. She complains of cough and is wheezing. Her shortness of breath is worsened. There is no PND or orthopnea. There is no leg edema. There is no palpitations, near-syncope or syncope. The patient's cough is dry and is nonproductive. PHYSICAL EXAMINATION: The patient appears to be chronically ill and malnourished. Selected Entries 04/03/20 07:47 Temperature 97.4 F Temperature Axillary Source Pulse Rate 104 H Respiratory 16 Rate Blood Pressure 90/57 L Blood Pressure 68 Mean BP Location Left Arm BP Position Supine O2 Sat by Pulse 91 L Oximetry Oxygen Flow 3.00 Rate Oxygen Delivery Nasal Cannula Method HEAD: Is atraumatic normocephalic. EYES: Pupils equal round regular reactive to light accommodation. Extraocular movements are normal. There is no conjunctival pallor. There is no scleral icterus. EARS: Tympanic membranes are intact. External auditory canals are clear. MOUTH: Mucous membranes of mouth are moist. Tongue is moist. There is no ulcers. THROAT: There is no redness of the oropharynx. There is no exudates. NECK: There is no JVD carotids are equal there is no bruit there is no lymphadenopathy. There is no goiter. LUNGS: There is bilateral scattered rhonchi and bilateral wheezing. No rales of CHF. HEART: S1-S2 is heard there is no S3 gallop there is no S4 gallop. There is systolic murmur left sternal border and the apex there is no rub. ABDOMEN: Soft nontender there is no paraspinal megaly. Bowel sounds are well heard. EXTREMITIES: Femorals are diminished. There is no femoral bruits leg pulses are diminished. There is mild pedal edema bilaterally. There is no DVT or cellulitis. There is no calf tenderness. There is no cyanosis or clubbing. CERTIFIED RECREATIONAL THERAPIST: The patient is conscious awake alert, but confused and disoriented x3. PSYCHIATRIC: The patient is delirious but does not appear to be agitated. Labs- All tests 24 hr 04/02/20 04/03/20 04/03/20 19:26 07:01 07:01 WBC 8.5 11.8 H RBC 3.57 L 3.21 L Hgb 11.4 L 10.3 L Hct 34.5 L 30.5 L MCV 96 95 MCH 31.8 32.1 MCHC 33.0 33.8 RDW 17.6 H 17.1 H Plt Count 201 189 Sodium 133.7 L Potassium 4.0 Chloride 96 L Carbon Dioxide 32 H Anion Gap 6 BUN 8 Creatinine 0.34 L Est GFR ( Amer) > 60 Est GFR (MDRD) Non-Af > 60 Glucose 85 Calcium 9.0 Magnesium 04/03/20 07:01 WBC RBC Hgb Hct MCV MCH MCHC RDW Plt Count Sodium Potassium Chloride Carbon Dioxide Anion Gap BUN Creatinine Est GFR ( Amer) Est GFR (MDRD) Non-Af Glucose Calcium Magnesium 1.8 Chest X-Ray 03/24/20 20:08 IMPRESSION: Improved aeration of the right lung base. Overall, the lungs appear clear. Stable cardiomegaly. Head CT 03/24/20 20:09 IMPRESSION: 1. No acute intracranial abnormalities. Nonspecific, mild white matter change most likely small vessel ischemic disease, age indeterminate. 2. CT is insensitive for early evaluation of acute stroke. If there is clinical concern for acute ischemia, an MRI may be considered. 3. Suspected acute on chronic sinus disease. Chest X-Ray 03/26/20 05:00 IMPRESSION: Increasing atelectasis or infiltrate right lower lobe. IMPRESSION/RECOMMENDATION: 1. Acute exacerbation of COPD. Continue anti-COPD medication and antibiotics. At present seems that the COPD acute exacerbation is worsened. 2. SEPSIS: Positive blood cultures for Enterococcus faecalis. ID consult via Internet. Their recommendations have been noted. 3. 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 The patient appears not to be confused confused today and she is not having any hallucinations today. 4. Acute on chronic) systolic heart failure [acute on chronic cor pulmonale]. Continue diuretics continue current medication. At present seems to be compensated. 5. Pulmonary hypertension: Agree with starting the patient oncalcium channel blockers. 6. History of hypertension: Of late the patient has chronic hypotension requiring midodrine to keep her blood pressure well controlled. 7. History of chronic alcohol abuse. Patient counseled to refrain from alcohol. 8. Acute renal failure on admission. Renal function now improved GFR is greater than 60. 9. Sinus bradycardia on admission most likely this along with hypertension secondary to patient's acute renal insufficiency due to possibly dehydration and right heart failure and hyperkalemia. Note that the hyperkalemia is resolved. Medications reviewed. Medical management and medical regimen discussed with attending The case. Medical decision making is of moderate complexity. 40 minutes spent on patient, with more than 50% spent on direct patient care. Will follow
[2020-04-03] MEDS: ACETAMINOPHEN 325 MG TABLET PO PRN (15:05)
--- NOTE | 2020-04-03 15:05 | RADIOLOGY REPORT (SQ) ---
EXAM DESCRIPTION: CHEST 2 VIEWS IMAGES COMPLETED DATE/TIME: 04/03/2020 1:42 pm REASON FOR STUDY: cough COMPARISON: 03/26/2020 EXAM PARAMETERS: NUMBER OF VIEWS: two views TECHNIQUE: Digital Frontal and Lateral radiographic views of the chest acquired. RADIATION DOSE: NA LIMITATIONS: none FINDINGS: LUNGS AND PLEURA: Lungs are hyperinflated. Diffuse increased interstitial prominence is s table from prior. No focal consolidation or pleural effusion. No pneumothorax. MEDIASTINUM AND HILAR STRUCTURES: No masses or contour abnormalities. HEART AND VASCULAR STRUCTURES: Moderate cardiomegaly. No pulmonary vascular congestion. BONES: No acute findings. HARDWARE: Right MediPort catheter with tip at the upper SVC is unchanged. OTHER: No other significant finding. IMPRESSION: No significant interval change. Hyperinflated lungs which can be seen with obstructive lung disease. No acute cardiopulmonary disease. TECHNICAL DOCUMENTATION: JOB ID: [id number] 2010 [employer]- All Rights Reserved Reading location - IP/workstation name: [email or web address]
--- NOTE | 2020-04-03 16:49 | PDOC PROGRESS REPORT ---
Subjective Date:: 04/03/20 Subjective:: Patient is a 59-year-old -Swiss female presented to [facility] emergency department via EMS on 03/24/2020 with altered mental status. Briefly, patient was admitted to the ICU for altered mental status, hypotension, and bradycardia. Required short dopamine drip with improvement of her bradycardia and hypotension. She experienced DT secondary to alcoholic w ithdrawal in ICU. Transferred out of ICU 03/27. On antibiotics for Enterococcus bacteremia. Patient seen on morning rounds. She is on 3L NC, O2 sat WNL. Pt historically with supplemental oxygen at home as needed. She has been removing her O2 and using prn here as well. She appears significantly less confused today. She does complain of increase in dry cough and wheezing, otherwise no complaints or concerns. Discussed with nursing, patient without hallucinations thus far today. No further concerns. Reason For Visit: SHOCK ABTUNDED [facility] Physical Exam Vital Signs: Temp Pulse Resp BP Pulse Ox 97.4 F 112 H 16 101/67 61 L 04/03/20 11:35 04/03/20 13:58 04/03/20 13:58 04/03/20 11:35 04/03/20 11:35 Intake & Output 04/02/20 04/03/20 04/04/20 06:59 06:59 06:59 Intake Total 770 950 490 Output Total 500 Balance 270 950 490 Weight 70.1 kg 70.1 kg Additional comments: General appearance: PRESENT: Alert, cooperative, pleasant with interactions. Eye exam: PRESENT: EOMI Respiratory exam: PRESENT: symmetrical, unlabored, persistent rhonch. Wheezing present today. ABSENT: stridor, tachypnea Cardiovascular exam: PRESENT: Tachycardic. Extremities exam: PRESENT: full ROM, pedal edema improved from previous - javier aterally Neurological exam: PRESENT: alert, awake, oriented to person Psychiatric exam: PRESENT: anxious, other -disorganized thought process. Skin exam: PRESENT: dry, without rash. Results Laboratory Results: 04/03/20 07:01 04/03/20 07:01 04/02/20 04/03/20 04/03/20 19:26 07:01 07:01 WBC 8.5 11.8 H RBC 3.57 L 3.21 L Hgb 11.4 L 10.3 L Hct 34.5 L 30.5 L MCV 96 95 MCH 31.8 32.1 MCHC 33.0 33.8 RDW 17.6 H 17.1 H Plt Count 201 189 Sodium 133.7 L Potassium 4.0 Chloride 96 L Carbon Dioxide 32 H Anion Gap 6 BUN 8 Creatinine 0.34 L Est GFR ( Amer) > 60 Glucose 85 Calcium 9.0 Magnesium 04/03/20 07:01 WBC RBC Hgb Hct MCV MCH MCHC RDW Plt Count Sodium Potassium Chloride Carbon Dioxide Anion Gap BUN Creatinine Est GFR ( Amer) Glucose Calcium Magnesium 1.8 03/24/20 03/24/20 03/25/20 20:10 20:10 02:47 Creatine Kinase 32 Troponin I 0.097 0.114 NT-Pro-B Natriuret Pep 2480 H 03/25/20 03/25/20 03/25/20 02:47 08:06 14:42 Creatine Kinase Troponin I 0.134 0.166 NT-Pro-B Natriuret Pep 2080 H 03/26/20 03/27/20 04:11 04:10 Creatine Kinase Troponin I NT-Pro-B Natriuret Pep 3290 H 6880 H Impressions: Head CT 03/24/20 20:09 IMPRESSION: 1. No acute intracranial abnormalities. Nonspecific, mild white matter change most likely small vessel ischemic disease, age indeterminate. 2. CT is insensitive for early evaluation of acute stroke. If there is clinical concern for acute ischemia, an MRI may be considered. 3. Suspected acute on chronic sinus disease. Chest X-Ray 04/03/20 00:00 IMPRESSION: No significant interval change. Hyperinflated lungs which can be seen with obstructive lung disease. No acute cardiopulmonary disease. Assessment and Plan - Diagnosis (1) Coagulase negative Staphylococcus bacteremia Is this a current diagnosis for this admission?: Yes Plan: Continue vanc. 3 out of 4 BCx bottles have come back with Methicillin resistant coagulase- negative staph suggestive of true bacteremia. Infection presented despite vancomycin since 03/26. Switched to daptomycin 03/31, discontinued 04/01 as per ID recommendations. ID consulted, note reviewed case discussed recommendations as follows: - "Blood culture positive for Enterococcus faecalis, source could be the foot vs aspiration as well." - "Vancomycin is adequate in the setting of penicillin allergy." - "Recommend to switch back to vancomycin to treat for 14 days for bacteremia." Vancomycin restarted 03/31, dosing as per pharmacist. - EOT for bacteremia will be 04/07/20 - Daily BMP BC 03/30 WGTD. (2) Enterococcal bacteremia Is this a current diagnosis for this admission?: Yes Plan: Continue Vanco as above. Has been on vancomycin since 03/26/2020. - Blood cultures 03/28 clearance of Enterococcus. - BC 03/30 without growth 48 hours. - Changed to daptomycin 03/30. Id consulted as above. - Vancomycin restarted 03/31, dosing as per pharmacist. - EOT for bacteremia will be 04/07/20 (3) COPD (chronic obstructive pulmonary disease) Qualifiers: COPD type: COPD with acute exacerbation Qualified Code(s): J44.1 - Chronic obstructive pulmonary disease with (acute) exacerbation Is this a current diagnosis for this admission?: Yes Plan: Stopped prednisone yesterday in genny of hallucinations. Wheezing has increased today with dry cough. Likely associated with COPD. Resume prednisone. CXR today: hyperinflated lungs with obstructive lung disease, without changes form previous. Interestingly your blood cell count is elevated today at 11.8. She remains afebrile. BC 03/30 WGTD. -Repeat blood cultures -CXR without changes -Monitor on cbc - Currently on vanc which provides good coverage in lungs as well (4) Alcohol withdrawal Qualifiers: Complication of substance-induced condition: with unspecified complication Qualified Code(s): F10.239 - Alcohol dependence with withdrawal, unspecified Is this a current diagnosis for this admission?: Yes Plan: Patient without hallucinations today. Continue medications as per psychs recommendations: - Continue respiradone - Continue Ativan IV q 6hr - Continue Buspar 5mg BID - Continue Depakote ER 250mg BID Ativan seems to be most beneficial to the patient. (5) Alcoholic encephalopathy Is this a current diagnosis for this admission?: Yes Plan: There is a chance that patient's current mental status is secondary to her long- term alcohol abuse and alcoholic encephalopathy. Otherwise medications as per psych above. Continue thiamine and folate supplementation. (6) CHF (congestive heart failure) Qualifiers: Heart failure type: unspecified Heart failure chronicity: unspecified Qualified Code(s): I50.9 - Heart failure, unspecified Is this a current diagnosis for this admission?: Yes Plan: Noted improvement in lower extremity edema and shortness of breath no longer requiring O2 supplementation at this time. Without PND or orthopnea. - Continue home dose po lasix. - Increased dose of Cardizem Echo (03/25): LV EF 55% with mild concentric LVH. Grade 1/4 diastolic dysfunction. RA mild to moderately dilated. RV mild to moderately dilated. Mild mitral regurgitation, RVSP 50-55mmHg. (7) Pulmonary hypertension Is this a current diagnosis for this admission?: Yes (8) Septic shock Is this a current diagnosis for this admission?: Yes Plan: Resolved. (9) Lung cancer Qualifiers: Laterality: left Lung location: overlapping sites Qualified Code(s): C34.82 - Malignant neoplasm of overlapping sites of left bronchus and lung Is this a current diagnosis for this admission?: Yes Plan: Outpt f/u with Dr. Robertson (10) Diarrhea Qualifiers: Diarrhea type: unspecified type Qualified Code(s): R19.7 - Diarrhea, unspecified Is this a current diagnosis for this admission?: Yes Plan: Resolved without intervention. (11) Pressure ulcer of dorsum of right foot Is this a current diagnosis for this admission?: Yes Plan: Wound care on board, dressing changes as per their recommendations. (12) Tobacco abuse Is this a current diagnosis for this admission?: Yes Plan: Implement nicotine patch. Pt educated >3 minutes on tobacco cessation. Provided encouragement to stop smok ing. (13) Lactic acid acidosis Is this a current diagnosis for this admission?: Yes Plan: Resolved. Repeat lab 1.9. currently on vanc as above. (14) Hypomagnesemia Is this a current diagnosis for this admission?: Yes Plan: Resolved. 1.4 -> 1.8. - Often seen with DTs - IV mag initiated corrected - Plan Summary Summary: Continue with vancomycin as per pharmacy dosing with EOT 04/07. Without hallucinations today, hard to tell if this was 2/2 addition of psych meds, or removal of prednisone and breathing tx. Given increase in wheezing and cough will continue prednisone. Continues to be tachycardic, persistently in 110s regardless of increased Cardizem dose, will increase again. - Time Time Spent with patient: 25-34 minutes Smoking Cessation Education: 3 to 10 minutes Medications reviewed and adjusted accordingly: Yes Anticipated Discharge Disposition: Home, Self Care Anticipated Discharge Timeframe: 04/07
[2020-04-03] MEDS: PREDNISONE 20 MG TABLET PO SCH (17:28)
[2020-04-04] MEDS: ACETAMINOPHEN 325 MG TABLET PO PRN (01:24)
[2020-04-04] MEDS: IPRATROPIUM/ALBUTEROL 0.5-2.5 MG/3 ML AMPUL NEB SCH ×4 (02:55→19:00)
[2020-04-04] MEDS: TRAMADOL HCL 50 MG TABLET PO PRN ×2 (05:45→18:56)
[2020-04-04] MEDS: HEPARIN SOD (PORCINE) 5,000 UNIT/ML 1 ML VIAL SUBCUT SCH ×3 (05:45→21:17)
[2020-04-04] MEDS: VANCOMYCIN HCL 1,000 MG in DEXTROSE 5%-WATER 250 ML IV SCH ×2 (05:45→18:38)
[2020-04-04 06:00] LABS: BLOOD UREA NITROGEN 14 mg/dL (7-20); CALCIUM 8.9 mg/dL (8.4-10.2); GLUCOSE 160 mg/dL (75-110); POTASSIUM 4.8 mmol/L (3.6-5.0)
[2020-04-04 06:05] LABS: ANION GAP 6 (5-19); CARBON DIOXIDE 31 mmol/L (22-30); CHLORIDE 95 mmol/L (98-107)
[2020-04-04] MEDS: GUAIFENESIN SYRP 200 MG/10 ML UDC PO PRN ×3 (06:16→21:17)
[2020-04-04] MEDS: PANTOPRAZOLE SODIUM 40 MG TABLET.DR PO SCH ×2 (07:45→17:44)
[2020-04-04] MEDS ORDERED: BENZONATATE 100 MG CAPSULE PO PRN (09:27)
--- NOTE | 2020-04-04 10:29 | PDOC PROGRESS REPORT ---
Subjective Date:: 04/04/20 Subjective:: Patient is a 59-year-old -[place]ien female presented to [facility] emergency department via EMS on 03/24/2020 with altered mental status. Briefly, patient was admitted to the ICU for altered mental status, hypotension, and bradycardia. Required short dopamine drip with improvement of her bradycardia and hypotension. She experienced DT secondary to alcoholic w ithdrawal in ICU. Transferred out of ICU 03/27. On antibiotics for Enterococcus bacteremia. Patient seen on morning rounds. She is resting upright in bed. O2 sats are within normal limits on room air. Cough is minimally improved from yesterday though persistent. Significant relief with continued breathing treatments. Otherwise tell me that she is doing well and has no other complaints or con cerns. Discussed with nursing no acute events overnight. Reason For Visit: Bacteremia Physical Exam Vital Signs: Temp Pulse Resp BP Pulse Ox 97.6 F 92 20 132/50 H 92 04/04/20 08:30 04/04/20 08:30 04/04/20 08:30 04/04/20 08:30 04/04/20 08:30 Intake & Output 04/03/20 04/04/20 04/05/20 06:59 06:59 06:59 Intake Total 950 740 250 Output Total 500 Balance 950 240 250 Weight 70.1 kg 70.1 kg Additional comments: General appearance: PRESENT: Alert, cooperative, pleasant with interactions. Eye exam: PRESENT: EOMI Respiratory exam: PRESENT: symmetrical, unlabored, persistent rhonch, primarily lower lung lemus bilaterally. Wheezing persist though reduced from yesterday. ABSENT: stridor, tachypnea Cardiovascular exam: PRESENT: Tachycardic, heart rate low 100s. Sinus tach on telemetry. Extremities exam: PRESENT: full ROM, minimal pedal edema noted significantly improved from previous. Neurological exam: PRESENT: alert, awake, oriented to person Psychiatric exam: PRESENT: Appropriate mood and affect. ABSENT: Anxious Skin exam: PRESENT: dry, without rash. Results Laboratory Results: 04/03/20 07:01 04/04/20 05:06 04/04/20 05:06 Sodium 131.6 L Potassium 4.8 Chloride 95 L Carbon Dioxide 31 H Anion Gap 6 BUN 14 Creatinine 0.37 L Est GFR ( Amer) > 60 Glucose 160 H Calcium 8.9 03/24/20 03/24/20 03/25/20 20:10 20:10 02:47 Creatine Kinase 32 Troponin I 0.097 0.114 NT-Pro-B Natriuret Pep 2480 H 03/25/20 03/25/20 03/25/20 02:47 08:06 14:42 Creatine Kinase Troponin I 0.134 0.166 NT-Pro-B Natriuret Pep 2080 H 03/26/20 03/27/20 04:11 04:10 Creatine Kinase Troponin I NT-Pro-B Natriuret Pep 3290 H 6880 H Impressions: Head CT 03/24/20 20:09 IMPRESSION: 1. No acute intracranial abnormalities. Nonspecific, mild white matter change most likely small vessel ischemic disease, age indeterminate. 2. CT is insensitive for early evaluation of acute stroke. If there is clinical concern for acute ischemia, an MRI may be considered. 3. Suspected acute on chronic sinus disease. Chest X-Ray 04/03/20 00:00 IMPRESSION: No significant interval change. Hyperinflated lungs which can be seen with obstructive lung disease. No acute cardiopulmonary disease. Assessment and Plan - Diagnosis (1) Coagulase negative Staphylococcus bacteremia Is this a current diagnosis for this admission?: Yes Plan: Continue vanc. Blood cultures WGTD. 3 out of 4 BCx bottles have come back with Methicillin resistant coagulase- negative staph suggestive of true bacteremia. Infection presented despite vancomycin since 03/26. Switched to daptomycin 03/31, discontinued 04/01 as per ID recommendations. ID consulted, note reviewed case discussed recommendations as follows: - "Blood culture positive for Enterococcus faecalis, source could be the foot vs aspiration as well." - "Vancomycin is adequate in the setting of penicillin allergy." - "Recommend to switch back to vancomycin to treat for 14 days for bacteremi a." Vancomycin restarted 03/31, dosing as per pharmacist. - EOT for bacteremia will be 04/07/20 - Daily BMP (2) Enterococcal bacteremia Is this a current diagnosis for this admission?: Yes Plan: Continue Vanco as above. Has been on vancomycin since 03/26/2020. - Blood cultures 03/28 clearance of Enterococcus. - BC 03/30 WGTD. - Changed to daptomycin 03/30. Id consulted as above. - Vancomycin restarted 03/31, dosing as per pharmacist. - EOT for bacteremia will be 04/07/20 (3) COPD (chronic obstructive pulmonary disease) Qualifiers: COPD type: COPD with acute exacerbation Qualified Code(s): J44.1 - Chronic obstructive pulmonary disease with (acute) exacerbation Is this a current diagnosis for this admission?: Yes Plan: Restarted prednisone therapy today. Previously received 3 days of prednisone. Stopped due to hallucinations. Wheezing improved from yesterday though persists. Likely associated with COPD. CXR today: hyperinflated lungs with obstructive lung disease, without changes form previous. Interestingly WBC elevated at 11.8 -> today She remains afebrile. 03/30 WGTD. -Repeat blood cultures pending -CXR without changes -Monitor on cbc -Currently on vanc which provides good coverage in lungs as well (4) Alcohol withdrawal Qualifiers: Complication of substance-induced condition: with unspecified complication Qualified Code(s): F10.239 - Alcohol dependence with withdrawal, unspecified Is this a current diagnosis for this admission?: Yes Plan: Patient without hallucinations today. Continue medications as per psychs recommendations: - Continue respiradone - Continue Ativan IV q 6hr - Continue Buspar 5mg BID - Continue Depakote ER 250mg BID Ativan seems to be most beneficial to the patient. (5) Alcoholic encephalopathy Is this a current diagnosis for this admission?: Yes Plan: There is a chance that patient's current mental status is secondary to her long- term alcohol abuse and alcoholic encephalopathy. Otherwise medications as per psych above. Continue thiamine and folate supplementation. (6) CHF (congestive heart failure) Qualifiers: Heart failure type: unspecified Heart failure chronicity: unspecified Qualified Code(s): I50.9 - Heart failure, unspecified Is this a current diagnosis for this admission?: Yes Plan: Noted improvement in lower extremity edema and shortness of breath no longer requiring O2 supplementation at this time. Without PND or orthopnea. - Continue home dose po lasix. -Continue current dose of Cardizem. Echo (03/25): LV EF 55% with mild concentric LVH. Grade 1/4 diastolic dysfunction. RA mild to moderately dilated. RV mild to moderately dilated. Mild mitral regurgitation, RVSP 50-55mmHg. (7) Pulmonary hypertension Is this a current diagnosis for this admission?: Yes (8) Septic shock Is this a current diagnosis for this admission?: Yes Plan: Resolved. (9) Lung cancer Qualifiers: Laterality: left Lung location: overlapping sites Qualified Code(s): C34.82 - Malignant neoplasm of overlapping sites of left bronchus and lung Is this a current diagnosis for this admission?: Yes Plan: Outpt f/u with Dr. Robertson (10) Diarrhea Qualifiers: Diarrhea type: unspecified type Qualified Code(s): R19.7 - Diarrhea, unspecified Is this a current diagnosis for this admission?: Yes Plan: Resolved without intervention. (11) Pressure ulcer of dorsum of right foot Is this a current diagnosis for this admission?: Yes Plan: Wound care on board, dressing changes as per their recommendations. (12) Tobacco abuse Is this a current diagnosis for this admission?: Yes Plan: Implement nicotine patch. Provided at least 3 minutes of education and encouragement regarding stopping tobacco use. (13) Lactic acid acidosis Is this a current diagnosis for this admission?: Yes Plan: Resolved. Repeat lab 1.9. currently on vanc as above. (14) Hypomagnesemia Is this a current diagnosis for this admission?: Yes Plan: Resolved. 1.4 -> 1.8. - IV mag initiated corrected - Plan Summary Summary: Continue with vancomycin as per pharmacy dosing with EOT 04/07. Remains without hallucinations and is overall doing well. Prednisone and Tessalon Perles on board for cough and wheezing suppressant. - Time Time Spent with patient: 25-34 minutes Smoking Cessation Education: 3 to 10 minutes Medications reviewed and adjusted accordingly: Yes Anticipated Discharge Disposition: Home, Self Care Anticipated Discharge Timeframe: 04/07
[2020-04-04] MEDS: PREDNISONE 20 MG TABLET PO SCH (11:12)
[2020-04-04] MEDS: BUPRENORPHINE HCL 2 MG SUBLINGUAL TABLET SL SCH ×2 (11:12→21:17)
[2020-04-04] MEDS: DIVALPROEX SODIUM 250 MG TAB.SR.24H PO SCH ×2 (11:13→18:37)
[2020-04-04] MEDS: POTASSIUM CHLORIDE 10 MEQ TABLET.ER PO SCH (11:13)
[2020-04-04] MEDS: FUROSEMIDE 20 MG TABLET PO SCH (11:13)
[2020-04-04] MEDS: FOLIC ACID 1 MG TABLET PO SCH (11:13)
[2020-04-04] MEDS: MULTIVITAMIN TABLET PO SCH (11:13)
[2020-04-04] MEDS: MIDODRINE HCL 5 MG TABLET PO SCH ×3 (11:13→18:37)
[2020-04-04] MEDS: DOCUSATE SODIUM 100 MG CAPSULE PO SCH (11:14)
[2020-04-04] MEDS: DILTIAZEM HCL 180 MG CAPSULE.CR PO SCH (11:14)
[2020-04-04] MEDS: FLUTICASONE/VILANTEROL 200-25 MCG/DOSE IH SCH (11:15)
[2020-04-04] MEDS: RISPERIDONE 0.5 MG TAB.RAPDIS PO SCH ×2 (11:15→18:37)
[2020-04-04] MEDS: COLLAGENASE CLOSTRIDIUM HIST. OINT 30 GM TOP SCH (11:15)
[2020-04-04] MEDS: THIAMINE HCL 100 MG TABLET PO SCH (11:15)
[2020-04-04] MEDS: BUSPIRONE HCL 10 MG TABLET PO SCH ×2 (11:16→21:17)
[2020-04-04 11:24] LABS: HEMATOCRIT 31.2 % (36.0-47.0); HEMOGLOBIN 10.5 g/dL (12.0-15.5); MEAN CORPUSCULAR HGB CONC 33.5 g/dL (32.0-36.0); MEAN CORPUSCULAR VOLUME 95 fl (80-97); PLATELET COUNT 218 10^3/uL (150-450); RED BLOOD COUNT 3.28 10^6/uL (3.72-5.28); RED CELL DISTRIBUTION WIDTH 16.7 % (11.5-14.0); WHITE BLOOD COUNT 6.1 10^3/uL (4.0-10.5)
--- NOTE | 2020-04-04 14:34 | Progress Note ---
Provider Note Provider Note: CARDIOLOGY PROGRESS NOTE by Dr. Cassandra Davis on 04/04. SUBJECTIVE: The patient is not delirious or confused anymore. She states she has no further cough and is not wheezing. She denies any chest pain. Her shortness of breath is worsened. There is no PND or orthopnea. There is no leg edema. There is no palpitations, near-syncope or syncope. PHYSICAL EXAMINATION: The patient appears to be chronically ill and malnourished. Selected Entries 04/04/20 11:24 Temperature 98.6 F Temperature Oral Source Pulse Rate 98 Respiratory 22 H Rate Blood Pressure 100 Mean BP Location Left Arm O2 Sat by Pulse 92 Oximetry Oxygen Flow 5.00 Rate Oxygen Delivery Nasal Cannula Method HEAD: Is atraumatic normocephalic. EYES: Pupils equal round regular reactive to light accommodation. Extraocular movements are normal. There is no conjunctival pallor. There is no scleral icterus. EARS: Tympanic membranes are intact. External auditory canals are clear. MOUTH: Mucous membranes of mouth are moist. Tongue is moist. There is no ulcers. THROAT: There is no redness of the oropharynx. There is no exudates. NECK: There is no JVD carotids are equal there is no bruit there is no lymphadenopathy. There is no goiter. LUNGS: There is bilateral scattered rhonchi and bilateral wheezing. No rales of CHF. HEART: S1-S2 is heard there is no S3 gallop there is no S4 gallop. There is systolic murmur left sternal border and the apex there is no rub. ABDOMEN: Soft nontender there is no paraspinal megaly. Bowel sounds are well heard. EXTREMITIES: Femorals are diminished. There is no femoral bruits leg pulses are diminished. There is mild pedal edema bilaterally. There is no DVT or cellulitis. There is no calf tenderness. There is no cyanosis or clubbing. 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 PSYCHIATRIC: The patient is delirious but does not appear to be agitated. Labs- All tests 24 hr 04/04/20 04/04/20 05:06 10:44 WBC 6.1 RBC 3.28 L Hgb 10.5 L Hct 31.2 L MCV 95 MCH 32.0 MCHC 33.5 RDW 16.7 H Plt Count 218 Sodium 131.6 L Potassium 4.8 Chloride 95 L Carbon Dioxide 31 H Anion Gap 6 BUN 14 Creatinine 0.37 L Est GFR ( Amer) > 60 Est GFR (MDRD) Non-Af > 60 Glucose 160 H Calcium 8.9 Labs- Entire Visit 03/24/20 03/24/20 03/24/20 20:10 20:10 20:10 WBC 4.9 RBC 3.35 L Hgb 10.8 L Hct 33.4 L MCV 100 H MCH 32.3 MCHC 32.4 RDW 19.4 H Plt Count 175 Lymph % (Auto) 14.1 [place] % (Auto) 9.7 Eos % (Auto) 1.9 Baso % (Auto) 0.3 Absolute Neuts (auto) 3.7 Absolute Lymphs (auto) 0.7 Absolute Monos (auto) 0.5 Absolute Eos (auto) 0.1 Absolute Basos (auto) 0.0 Seg Neutrophils % 74.0 Platelet Estimate PT INR APTT Carbonic Acid HCO3/H2CO3 Ratio ABG pH ABG pCO2 ABG pO2 ABG HCO3 ABG Total CO2 ABG O2 Saturation ABG Base Excess FiO2 Sodium 130.6 L Potassium 5.6 H Chloride 101 Carbon Dioxide 24 Anion Gap 6 BUN 52 H Creatinine 1.62 H Est GFR ( Amer) 39 L Est GFR (Non-Af Amer) Est GFR (MDRD) Non-Af 33 L Glucose 79 POC Glucose Lactic Acid 1.3 Calcium 9.2 Phosphorus 7.6 H Magnesium 3.6 H Total Bilirubin 0.4 Direct Bilirubin 0.3 Neonat Total Bilirubin Not Reportable Neonat Direct Bilirubin Not Reportable Neonat Indirect Bili Not Reportable AST 27 ALT 9 Alkaline Phosphatase 155 H Ammonia Creatine Kinase Troponin I C-Reactive Protein 61.5 H NT-Pro-B Natriuret Pep Total Protein 7.3 Albumin 3.2 L Amylase Lipase EGFR TSH Free T4 Random Cortisol Urine Color Urine Appearance Urine pH Ur Specific [place] Urine Protein Urine Glucose (UA) Urine Ketones Urine Blood Urine Nitrite Urine Bilirubin Urine Urobilinogen Ur Leukocyte Esterase Urine WBC (Auto) Urine RBC (Auto) U Hyaline Cast (Auto) Squamous Epi Cells Auto Urine Mucus (Auto) Urine Ascorbic Acid Time Trough Drawn Vancomycin Trough Urine Opiates Screen Urine Methadone Screen Ur Barbiturates Screen Ur Phencyclidine Scrn Ur Amphetamines Screen U Benzodiazepines Scrn Urine Cocaine Screen U Marijuana (THC) Screen Serum Alcohol < 10 Slides for Path Review 03/24/20 03/24/20 03/24/20 20:10 20:10 20:10 WBC RBC Hgb Hct MCV MCH MCHC RDW Plt Count Lymph % (Auto) [place] % (Auto) Eos % (Auto) Baso % (Auto) Absolute Neuts (auto) Absolute Lymphs (auto) Absolute Monos (auto) Absolute Eos (auto) Absolute Basos (auto) Seg Neutrophils % Platelet Estimate PT INR APTT Carbonic Acid HCO3/H2CO3 Ratio ABG pH ABG pCO2 ABG pO2 ABG HCO3 ABG Total CO2 ABG O2 Saturation ABG Base Excess FiO2 Sodium Potassium Chloride Carbon Dioxide Anion Gap BUN Creatinine Est GFR ( Amer) Est GFR (Non-Af Amer) Est GFR (MDRD) Non-Af Glucose POC Glucose Lactic Acid Calcium Phosphorus Magnesium Total Bilirubin Direct Bilirubin Neonat Total Bilirubin Neonat Direct Bilirubin Neonat Indirect Bili AST ALT Alkaline Phosphatase Ammonia Creatine Kinase 32 Troponin I 0.097 C-Reactive Protein NT-Pro-B Natriuret Pep 2480 H Total Protein Albumin Amylase Lipase EGFR TSH 4.77 H Free T4 1.09 Random Cortisol Urine Color Urine Appearance Urine pH Ur Specific [place] Urine Protein Urine Glucose (UA) Urine Ketones Urine Blood Urine Nitrite Urine Bilirubin Urine Urobilinogen Ur Leukocyte Esterase Urine WBC (Auto) Urine RBC (Auto) U Hyaline Cast (Auto) Squamous Epi Cells Auto Urine Mucus (Auto) Urine Ascorbic Acid Time Trough Drawn Vancomycin Trough Urine Opiates Screen Urine Methadone Screen Ur Barbiturates Screen Ur Phencyclidine Scrn Ur Amphetamines Screen U Benzodiazepines Scrn Urine Cocaine Screen U Marijuana (THC) Screen Serum Alcohol Slides for Path Review 03/24/20 03/24/20 03/24/20 20:15 20:15 20:34 WBC RBC Hgb Hct MCV MCH MCHC RDW Plt Count Lymph % (Auto) [place] % (Auto) Eos % (Auto) Baso % (Auto) Absolute Neuts (auto) Absolute Lymphs (auto) Absolute Monos (auto) Absolute Eos (auto) Absolute Basos (auto) Seg Neutrophils % Platelet Estimate PT INR APTT Carbonic Acid HCO3/H2CO3 Ratio ABG pH ABG pCO2 ABG pO2 ABG HCO3 ABG Total CO2 ABG O2 Saturation ABG Base Excess FiO2 Sodium Potassium Chloride Carbon Dioxide Anion Gap BUN Creatinine Est GFR ( Amer) Est GFR (Non-Af Amer) Est GFR (MDRD) Non-Af Glucose POC Glucose 83 Lactic Acid Calcium Phosphorus Magnesium Total Bilirubin Direct Bilirubin Neonat Total Bilirubin Neonat Direct Bilirubin Neonat Indirect Bili AST ALT Alkaline Phosphatase Ammonia Creatine Kinase Troponin I C-Reactive Protein NT-Pro-B Natriuret Pep Total Protein Albumin Amylase Lipase EGFR TSH Free T4 Random Cortisol Urine Color YELLOW Urine Appearance SLIGHTLY-CLOUDY Urine pH 5.0 Ur Specific [place] 1.019 Urine Protein NEGATIVE Urine Glucose (UA) NEGATIVE Urine Ketones NEGATIVE Urine Blood NEGATIVE Urine Nitrite NEGATIVE Urine Bilirubin NEGATIVE Urine Urobilinogen NEGATIVE Ur Leukocyte Esterase NEGATIVE Urine WBC (Auto) 1 Urine RBC (Auto) 0 U Hyaline Cast (Auto) 30 Squamous Epi Cells Auto 1 Urine Mucus (Auto) RARE Urine Ascorbic Acid NEGATIVE Time Trough Drawn Vancomycin Trough Urine Opiates Screen UNCONFIRMED POSITIVE Urine Methadone Screen NEGATIVE Ur Barbiturates Screen NEGATIVE Ur Phencyclidine Scrn NEGATIVE Ur Amphetamines Screen NEGATIVE U Benzodiazepines Scrn NEGATIVE Urine Cocaine Screen NEGATIVE U Marijuana (THC) Screen NEGATIVE Serum Alcohol Slides for Path Review 03/24/20 03/24/20 03/25/20 21:10 23:10 02:47 WBC RBC Hgb Hct MCV MCH MCHC RDW Plt Count Lymph % (Auto) [place] % (Auto) Eos % (Auto) Baso % (Auto) Absolute Neuts (auto) Absolute Lymphs (auto) Absolute Monos (auto) Absolute Eos (auto) Absolute Basos (auto) Seg Neutrophils % Platelet Estimate PT INR APTT Carbonic Acid 1.56 H HCO3/H2CO3 Ratio 13:1 ABG pH 7.24 L ABG pCO2 51.7 H ABG pO2 84.5 ABG HCO3 21.5 ABG Total CO2 23.0 ABG O2 Saturation 94.5 ABG Base Excess -6.0 FiO2 36% Sodium Potassium Chloride Carbon Dioxide Anion Gap BUN Creatinine Est GFR ( Amer) Est GFR (Non-Af Amer) Est GFR (MDRD) Non-Af Glucose POC Glucose 81 Lactic Acid Calcium Phosphorus Magnesium Total Bilirubin Direct Bilirubin Neonat Total Bilirubin Neonat Direct Bilirubin Neonat Indirect Bili AST ALT Alkaline Phosphatase Ammonia Creatine Kinase Troponin I 0.114 C-Reactive Protein NT-Pro-B Natriuret Pep Total Protein Albumin Amylase Lipase EGFR TSH Free T4 Random Cortisol Urine Color Urine Appearance Urine pH Ur Specific [place] Urine Protein Urine Glucose (UA) Urine Ketones Urine Blood Urine Nitrite Urine Bilirubin Urine Urobilinogen Ur Leukocyte Esterase Urine WBC (Auto) Urine RBC (Auto) U Hyaline Cast (Auto) Squamous Epi Cells Auto Urine Mucus (Auto) Urine Ascorbic Acid Time Trough Drawn Vancomycin Trough Urine Opiates Screen Urine Methadone Screen Ur Barbiturates Screen Ur Phencyclidine Scrn Ur Amphetamines Screen U Benzodiazepines Scrn Urine Cocaine Screen U Marijuana (THC) Screen Serum Alcohol Slides for Path Review 03/25/20 03/25/20 03/25/20 02:47 02:47 02:47 WBC 4.8 RBC 3.49 L Hgb 11.3 L Hct 34.1 L MCV 98 H MCH 32.4 MCHC 33.1 RDW 18.7 H Plt Count 170 Lymph % (Auto) 10.7 L [place] % (Auto) 10.5 Eos % (Auto) 1.2 Baso % (Auto) 0.4 Absolute Neuts (auto) 3.7 Absolute Lymphs (auto) 0.5 Absolute Monos (auto) 0.5 Absolute Eos (auto) 0.1 Absolute Basos (auto) 0.0 Seg Neutrophils % 77.2 Platelet Estimate PT 14.9 INR 1.14 APTT 39.3 H Carbonic Acid HCO3/H2CO3 Ratio ABG pH ABG pCO2 ABG pO2 ABG HCO3 ABG Total CO2 ABG O2 Saturation ABG Base Excess FiO2 Sodium 132.9 L Potassium 5.9 H Chloride 103 Carbon Dioxide 22 Anion Gap 8 BUN 49 H Creatinine 1.42 H Est GFR ( Amer) 46 L Est GFR (Non-Af Amer) Est GFR (MDRD) Non-Af 38 L Glucose 93 POC Glucose Lactic Acid Calcium 9.2 Phosphorus Magnesium Total Bilirubin 0.4 Direct Bilirubin 0.3 Neonat Total Bilirubin Not Reportable Neonat Direct Bilirubin Not Reportable Neonat Indirect Bili Not Reportable AST 19 ALT 9 Alkaline Phosphatase 151 H Ammonia Creatine Kinase Troponin I C-Reactive Protein NT-Pro-B Natriuret Pep Total Protein 6.8 Albumin 3.0 L Amylase 40 Lipase 202.5 EGFR TSH Free T4 Random Cortisol Urine Color Urine Appearance Urine pH Ur Specific [place] Urine Protein Urine Glucose (UA) Urine Ketones Urine Blood Urine Nitrite Urine Bilirubin Urine Urobilinogen Ur Leukocyte Esterase Urine WBC (Auto) Urine RBC (Auto) U Hyaline Cast (Auto) Squamous Epi Cells Auto Urine Mucus (Auto) Urine Ascorbic Acid Time Trough Drawn Vancomycin Trough Urine Opiates Screen Urine Methadone Screen Ur Barbiturates Screen Ur Phencyclidine Scrn Ur Amphetamines Screen U Benzodiazepines Scrn Urine Cocaine Screen U Marijuana (THC) Screen Serum Alcohol Slides for Path Review 03/25/20 03/25/20 03/25/20 02:47 02:55 04:15 WBC RBC Hgb Hct MCV MCH MCHC RDW Plt Count Lymph % (Auto) [place] % (Auto) Eos % (Auto) Baso % (Auto) Absolute Neuts (auto) Absolute Lymphs (auto) Absolute Monos (auto) Absolute Eos (auto) Absolute Basos (auto) Seg Neutrophils % Platelet Estimate PT INR APTT Carbonic Acid 1.59 H HCO3/H2CO3 Ratio 14:1 ABG pH 7.25 L ABG pCO2 52.9 H ABG pO2 74.4 L ABG HCO3 22.7 ABG Total CO2 24.4 ABG O2 Saturation 92.5 L ABG Base Excess -4.7 FiO2 4L Sodium Potassium Chloride Carbon Dioxide Anion Gap BUN Creatinine Est GFR ( Amer) Est GFR (Non-Af Amer) Est GFR (MDRD) Non-Af Glucose POC Glucose Lactic Acid Calcium Phosphorus Magnesium Total Bilirubin Direct Bilirubin Neonat Total Bilirubin Neonat Direct Bilirubin Neonat Indirect Bili AST ALT Alkaline Phosphatase Ammonia 25.3 Creatine Kinase Troponin I C-Reactive Protein NT-Pro-B Natriuret Pep 2080 H Total Protein Albumin Amylase Lipase EGFR TSH Free T4 Random Cortisol Urine Color Urine Appearance Urine pH Ur Specific [place] Urine Protein Urine Glucose (UA) Urine Ketones Urine Blood Urine Nitrite Urine Bilirubin Urine Urobilinogen Ur Leukocyte Esterase Urine WBC (Auto) Urine RBC (Auto) U Hyaline Cast (Auto) Squamous Epi Cells Auto Urine Mucus (Auto) Urine Ascorbic Acid Time Trough Drawn Vancomycin Trough Urine Opiates Screen Urine Methadone Screen Ur Barbiturates Screen Ur Phencyclidine Scrn Ur Amphetamines Screen U Benzodiazepines Scrn Urine Cocaine Screen U Marijuana (THC) Screen Serum Alcohol Slides for Path Review 03/25/20 03/25/20 03/25/20 04:15 08:06 14:42 WBC RBC Hgb Hct MCV MCH MCHC RDW Plt Count Lymph % (Auto) [place] % (Auto) Eos % (Auto) Baso % (Auto) Absolute Neuts (auto) Absolute Lymphs (auto) Absolute Monos (auto) Absolute Eos (auto) Absolute Basos (auto) Seg Neutrophils % Platelet Estimate PT INR APTT Carbonic Acid HCO3/H2CO3 Ratio ABG pH ABG pCO2 ABG pO2 ABG HCO3 ABG Total CO2 ABG O2 Saturation ABG Base Excess FiO2 Sodium Potassium Chloride Carbon Dioxide Anion Gap BUN Creatinine Est GFR ( Amer) Est GFR (Non-Af Amer) Est GFR (MDRD) Non-Af Glucose POC Glucose Lactic Acid Calcium Phosphorus Magnesium Total Bilirubin Direct Bilirubin Neonat Total Bilirubin Neonat Direct Bilirubin Neonat Indirect Bili AST ALT Alkaline Phosphatase Ammonia Creatine Kinase Troponin I 0.134 0.166 C-Reactive Protein NT-Pro-B Natriuret Pep Total Protein Albumin Amylase Lipase EGFR TSH Free T4 Random Cortisol 36.70 Urine Color Urine Appearance Urine pH Ur Specific [place] Urine Protein Urine Glucose (UA) Urine Ketones Urine Blood Urine Nitrite Urine Bilirubin Urine Urobilinogen Ur Leukocyte Esterase Urine WBC (Auto) Urine RBC (Auto) U Hyaline Cast (Auto) Squamous Epi Cells Auto Urine Mucus (Auto) Urine Ascorbic Acid Time Trough Drawn Vancomycin Trough Urine Opiates Screen Urine Methadone Screen Ur Barbiturates Screen Ur Phencyclidine Scrn Ur Amphetamines Screen U Benzodiazepines Scrn Urine Cocaine Screen U Marijuana (THC) Screen Serum Alcohol Slides for Path Review 03/26/20 03/26/20 03/26/20 04:11 04:11 04:11 WBC 6.0 RBC 3.55 L Hgb 11.4 L Hct 34.5 L MCV 97 MCH 32.1 MCHC 33.1 RDW 18.5 H Plt Count 159 Lymph % (Auto) 19.0 [place] % (Auto) 10.2 Eos % (Auto) 0.2 Baso % (Auto) 0.3 Absolute Neuts (auto) 4.2 Absolute Lymphs (auto) 1.1 Absolute Monos (auto) 0.6 Absolute Eos (auto) 0.0 Absolute Basos (auto) 0.0 Seg Neutrophils % 70.3 Platelet Estimate PT INR APTT Carbonic Acid HCO3/H2CO3 Ratio ABG pH ABG pCO2 ABG pO2 ABG HCO3 ABG Total CO2 ABG O2 Saturation ABG Base Excess FiO2 Sodium 134.6 L Potassium 5.6 H Chloride 102 Carbon Dioxide 26 Anion Gap 7 BUN 31 H Creatinine 0.59 Est GFR ( Amer) > 60 Est GFR (Non-Af Amer) Est GFR (MDRD) Non-Af > 60 Glucose 76 POC Glucose Lactic Acid Calcium 9.4 Phosphorus 4.3 Magnesium 2.9 H Total Bilirubin 0.6 Direct Bilirubin 0.4 Neonat Total Bilirubin Not Reportable Neonat Direct Bilirubin Not Reportable Neonat Indirect Bili Not Reportable AST 28 ALT 8 Alkaline Phosphatase 153 H Ammonia Creatine Kinase Troponin I C-Reactive Protein NT-Pro-B Natriuret Pep 3290 H Total Protein 7.3 Albumin 3.1 L Amylase Lipase EGFR TSH Free T4 Random Cortisol Urine Color Urine Appearance Urine pH Ur Specific [place] Urine Protein Urine Glucose (UA) Urine Ketones Urine Blood Urine Nitrite Urine Bilirubin Urine Urobilinogen Ur Leukocyte Esterase Urine WBC (Auto) Urine RBC (Auto) U Hyaline Cast (Auto) Squamous Epi Cells Auto Urine Mucus (Auto) Urine Ascorbic Acid Time Trough Drawn Vancomycin Trough Urine Opiates Screen Urine Methadone Screen Ur Barbiturates Screen Ur Phencyclidine Scrn Ur Amphetamines Screen U Benzodiazepines Scrn Urine Cocaine Screen U Marijuana (THC) Screen Serum Alcohol Slides for Path Review 03/26/20 03/27/20 03/27/20 18:57 04:10 04:10 WBC 7.8 RBC 3.29 L Hgb 10.6 L Hct 31.6 L MCV 96 MCH 32.3 MCHC 33.7 RDW 18.3 H Plt Count 153 Lymph % (Auto) 10.6 L [place] % (Auto) 5.6 Eos % (Auto) 0.0 Baso % (Auto) 0.3 Absolute Neuts (auto) 6.5 Absolute Lymphs (auto) 0.8 Absolute Monos (auto) 0.4 Absolute Eos (auto) 0.0 Absolute Basos (auto) 0.0 Seg Neutrophils % 83.5 H Platelet Estimate PT INR APTT Carbonic Acid HCO3/H2CO3 Ratio ABG pH ABG pCO2 ABG pO2 ABG HCO3 ABG Total CO2 ABG O2 Saturation ABG Base Excess FiO2 Sodium 135.1 L Potassium 4.5 D Chloride 96 L Carbon Dioxide 30 Anion Gap 9 BUN 12 Creatinine 0.42 L Est GFR ( Amer) > 60 Est GFR (Non-Af Amer) Est GFR (MDRD) Non-Af > 60 Glucose 73 L POC Glucose 77 Lactic Acid Calcium 9.4 Phosphorus Magnesium Total Bilirubin 0.7 Direct Bilirubin 0.3 Neonat Total Bilirubin Not Reportable Neonat Direct Bilirubin Not Reportable Neonat Indirect Bili Not Reportable AST 21 ALT 8 Alkaline Phosphatase 154 H Ammonia Creatine Kinase Troponin I C-Reactive Protein NT-Pro-B Natriuret Pep Total Protein 6.8 Albumin 2.9 L Amylase Lipase EGFR TSH Free T4 Random Cortisol Urine Color Urine Appearance Urine pH Ur Specific [place] Urine Protein Urine Glucose (UA) Urine Ketones Urine Blood Urine Nitrite Urine Bilirubin Urine Urobilinogen Ur Leukocyte Esterase Urine WBC (Auto) Urine RBC (Auto) U Hyaline Cast (Auto) Squamous Epi Cells Auto Urine Mucus (Auto) Urine Ascorbic Acid Time Trough Drawn Vancomycin Trough Urine Opiates Screen Urine Methadone Screen Ur Barbiturates Screen Ur Phencyclidine Scrn Ur Amphetamines Screen U Benzodiazepines Scrn Urine Cocaine Screen U Marijuana (THC) Screen Serum Alcohol Slides for Path Review 03/27/20 03/28/20 03/28/20 04:10 05:42 05:42 WBC RBC Hgb Hct MCV MCH MCHC RDW Plt Count Lymph % (Auto) [place] % (Auto) Eos % (Auto) Baso % (Auto) Absolute Neuts (auto) Absolute Lymphs (auto) Absolute Monos (auto) Absolute Eos (auto) Absolute Basos (auto) Seg Neutrophils % Platelet Estimate PT INR APTT Carbonic Acid HCO3/H2CO3 Ratio ABG pH ABG pCO2 ABG pO2 ABG HCO3 ABG Total CO2 ABG O2 Saturation ABG Base Excess FiO2 Sodium Potassium Chloride Carbon Dioxide Anion Gap BUN Creatinine 0.38 L Est GFR ( Amer) > 60 Est GFR (Non-Af Amer) Est GFR (MDRD) Non-Af > 60 Glucose POC Glucose Lactic Acid Calcium Phosphorus Magnesium Total Bilirubin Direct Bilirubin Neonat Total Bilirubin Neonat Direct Bilirubin Neonat Indirect Bili AST ALT Alkaline Phosphatase Ammonia Creatine Kinase Troponin I C-Reactive Protein NT-Pro-B Natriuret Pep 6880 H Total Protein Albumin Amylase Lipase EGFR TSH Free T4 Random Cortisol Urine Color Urine Appearance Urine pH Ur Specific [place] Urine Protein Urine Glucose (UA) Urine Ketones Urine Blood Urine Nitrite Urine Bilirubin Urine Urobilinogen Ur Leukocyte Esterase Urine WBC (Auto) Urine RBC (Auto) U Hyaline Cast (Auto) Squamous Epi Cells Auto Urine Mucus (Auto) Urine Ascorbic Acid Time Trough Drawn 0542 Vancomycin Trough 12.2 Urine Opiates Screen Urine Methadone Screen Ur Barbiturates Screen Ur Phencyclidine Scrn Ur Amphetamines Screen U Benzodiazepines Scrn Urine Cocaine Screen U Marijuana (THC) Screen Serum Alcohol Slides for Path Review 03/28/20 03/28/20 03/28/20 10:40 10:40 13:04 WBC 7.1 RBC 3.53 L Hgb 11.3 L Hct 34.1 L MCV 97 MCH 31.9 MCHC 33.0 RDW 18.0 H Plt Count 139 L Lymph % (Auto) 17.2 [place] % (Auto) 8.4 Eos % (Auto) 0.6 Baso % (Auto) 0.5 Absolute Neuts (auto) 5.2 Absolute Lymphs (auto) 1.2 Absolute Monos (auto) 0.6 Absolute Eos (auto) 0.0 Absolute Basos (auto) 0.0 Seg Neutrophils % 73.3 Platelet Estimate PT INR APTT Carbonic Acid HCO3/H2CO3 Ratio ABG pH ABG pCO2 ABG pO2 ABG HCO3 ABG Total CO2 ABG O2 Saturation ABG Base Excess FiO2 Sodium Cancelled 131.5 L Potassium Cancelled 3.9 Chloride Cancelled 92 L Carbon Dioxide Cancelled 34 H Anion Gap Cancelled 6 BUN Cancelled 9 Creatinine Cancelled 0.44 L Est GFR ( Amer) Cancelled > 60 Est GFR (Non-Af Amer) Cancelled Est GFR (MDRD) Non-Af Cancelled > 60 Glucose Cancelled 122 H POC Glucose Lactic Acid Calcium Cancelled 8.6 Phosphorus Magnesium Total Bilirubin Direct Bilirubin Neonat Total Bilirubin Neonat Direct Bilirubin Neonat Indirect Bili AST ALT Alkaline Phosphatase Ammonia Creatine Kinase Troponin I C-Reactive Protein NT-Pro-B Natriuret Pep Total Protein Albumin Amylase Lipase EGFR Cancelled TSH Free T4 Random Cortisol Urine Color Urine Appearance Urine pH Ur Specific [place] Urine Protein Urine Glucose (UA) Urine Ketones Urine Blood Urine Nitrite Urine Bilirubin Urine Urobilinogen Ur Leukocyte Esterase Urine WBC (Auto) Urine RBC (Auto) U Hyaline Cast (Auto) Squamous Epi Cells Auto Urine Mucus (Auto) Urine Ascorbic Acid Time Trough Drawn Vancomycin Trough Urine Opiates Screen Urine Methadone Screen Ur Barbiturates Screen Ur Phencyclidine Scrn Ur Amphetamines Screen U Benzodiazepines Scrn Urine Cocaine Screen U Marijuana (THC) Screen Serum Alcohol Slides for Path Review 03/31/20 04/01/20 04/01/20 20:03 08:00 08:00 WBC Cancelled RBC Cancelled Hgb Cancelled Hct Cancelled MCV Cancelled MCH Cancelled MCHC Cancelled RDW Cancelled Plt Count Cancelled Lymph % (Auto) [place] % (Auto) Eos % (Auto) Baso % (Auto) Absolute Neuts (auto) Absolute Lymphs (auto) Absolute Monos (auto) Absolute Eos (auto) Absolute Basos (auto) Seg Neutrophils % Platelet Estimate Cancelled PT INR APTT Carbonic Acid HCO3/H2CO3 Ratio ABG pH ABG pCO2 ABG pO2 ABG HCO3 ABG Total CO2 ABG O2 Saturation ABG Base Excess FiO2 Sodium 133.8 L Potassium 4.5 Chloride 99 Carbon Dioxide 30 Anion Gap 5 BUN 8 Creatinine 0.28 L Est GFR ( Amer) > 60 Est GFR (Non-Af Amer) Est GFR (MDRD) Non-Af > 60 Glucose 86 POC Glucose 267 H Lactic Acid Calcium 8.9 Phosphorus Magnesium Total Bilirubin Direct Bilirubin Neonat Total Bilirubin Neonat Direct Bilirubin Neonat Indirect Bili AST ALT Alkaline Phosphatase Ammonia Creatine Kinase Troponin I C-Reactive Protein NT-Pro-B Natriuret Pep Total Protein Albumin Amylase Lipase EGFR TSH Free T4 Random Cortisol Urine Color Urine Appearance Urine pH Ur Specific [place] Urine Protein Urine Glucose (UA) Urine Ketones Urine Blood Urine Nitrite Urine Bilirubin Urine Urobilinogen Ur Leukocyte Esterase Urine WBC (Auto) Urine RBC (Auto) U Hyaline Cast (Auto) Squamous Epi Cells Auto Urine Mucus (Auto) Urine Ascorbic Acid Time Trough Drawn Vancomycin Trough Urine Opiates Screen Urine Methadone Screen Ur Barbiturates Screen Ur Phencyclidine Scrn Ur Amphetamines Screen U Benzodiazepines Scrn Urine Cocaine Screen U Marijuana (THC) Screen Serum Alcohol Slides for Path Review Cancelled 04/01/20 04/01/20 04/01/20 14:50 14:50 14:50 WBC 9.3 RBC 3.77 Hgb 11.9 L Hct 36.4 MCV 96 MCH 31.6 MCHC 32.7 RDW 17.4 H Plt Count 163 Lymph % (Auto) 6.3 L [place] % (Auto) 1.8 L Eos % (Auto) 0.1 Baso % (Auto) 0.0 Absolute Neuts (auto) 8.5 H Absolute Lymphs (auto) 0.6 Absolute Monos (auto) 0.2 Absolute Eos (auto) 0.0 Absolute Basos (auto) 0.0 Seg Neutrophils % 91.8 H Platelet Estimate PT INR APTT Carbonic Acid HCO3/H2CO3 Ratio ABG pH ABG pCO2 ABG pO2 ABG HCO3 ABG Total CO2 ABG O2 Saturation ABG Base Excess FiO2 Sodium 135.2 L Potassium 3.7 Chloride 95 L Carbon Dioxide 30 Anion Gap 10 BUN 9 Creatinine 0.34 L Est GFR ( Amer) > 60 Est GFR (Non-Af Amer) Est GFR (MDRD) Non-Af > 60 Glucose 151 H POC Glucose Lactic Acid 2.4 H Calcium 9.3 Phosphorus Magnesium Total Bilirubin Direct Bilirubin Neonat Total Bilirubin Neonat Direct Bilirubin Neonat Indirect Bili AST ALT Alkaline Phosphatase Ammonia Creatine Kinase Troponin I C-Reactive Protein NT-Pro-B Natriuret Pep Total Protein Albumin Amylase Lipase EGFR TSH Free T4 Random Cortisol Urine Color Urine Appearance Urine pH Ur Specific [place] Urine Protein Urine Glucose (UA) Urine Ketones Urine Blood Urine Nitrite Urine Bilirubin Urine Urobilinogen Ur Leukocyte Esterase Urine WBC (Auto) Urine RBC (Auto) U Hyaline Cast (Auto) Squamous Epi Cells Auto Urine Mucus (Auto) Urine Ascorbic Acid Time Trough Drawn Vancomycin Trough Urine Opiates Screen Urine Methadone Screen Ur Barbiturates Screen Ur Phencyclidine Scrn Ur Amphetamines Screen U Benzodiazepines Scrn Urine Cocaine Screen U Marijuana (THC) Screen Serum Alcohol Slides for Path Review 04/01/20 04/01/20 04/02/20 20:31 20:31 05:40 WBC 9.8 RBC 3.52 L Hgb 11.2 L Hct 33.8 L MCV 96 MCH 31.8 MCHC 33.2 RDW 17.1 H Plt Count 188 Lymph % (Auto) [place] % (Auto) Eos % (Auto) Baso % (Auto) Absolute Neuts (auto) Absolute Lymphs (auto) Absolute Monos (auto) Absolute Eos (auto) Absolute Basos (auto) Seg Neutrophils % Platelet Estimate PT INR APTT Carbonic Acid HCO3/H2CO3 Ratio ABG pH ABG pCO2 ABG pO2 ABG HCO3 ABG Total CO2 ABG O2 Saturation ABG Base Excess FiO2 Sodium Potassium Chloride Carbon Dioxide Anion Gap BUN Creatinine Est GFR ( Amer) Est GFR (Non-Af Amer) Est GFR (MDRD) Non-Af Glucose POC Glucose Lactic Acid 1.9 Calcium Phosphorus Magnesium Total Bilirubin Direct Bilirubin Neonat Total Bilirubin Neonat Direct Bilirubin Neonat Indirect Bili AST ALT Alkaline Phosphatase Ammonia Creatine Kinase Troponin I C-Reactive Protein NT-Pro-B Natriuret Pep Total Protein Albumin Amylase Lipase EGFR TSH Free T4 Random Cortisol Urine Color Urine Appearance Urine pH Ur Specific [place] Urine Protein Urine Glucose (UA) Urine Ketones Urine Blood Urine Nitrite Urine Bilirubin Urine Urobilinogen Ur Leukocyte Esterase Urine WBC (Auto) Urine RBC (Auto) U Hyaline Cast (Auto) Squamous Epi Cells Auto Urine Mucus (Auto) Urine Ascorbic Acid Time Trough Drawn 0540 Vancomycin Trough 10.3 Urine Opiates Screen Urine Methadone Screen Ur Barbiturates Screen Ur Phencyclidine Scrn Ur Amphetamines Screen U Benzodiazepines Scrn Urine Cocaine Screen U Marijuana (THC) Screen Serum Alcohol Slides for Path Review 04/02/20 04/02/20 04/02/20 05:40 05:40 19:26 WBC 8.5 RBC 3.57 L Hgb 11.4 L Hct 34.5 L MCV 96 MCH 31.8 MCHC 33.0 RDW 17.6 H Plt Count 201 Lymph % (Auto) [place] % (Auto) Eos % (Auto) Baso % (Auto) Absolute Neuts (auto) Absolute Lymphs (auto) Absolute Monos (auto) Absolute Eos (auto) Absolute Basos (auto) Seg Neutrophils % Platelet Estimate PT INR APTT Carbonic Acid HCO3/H2CO3 Ratio ABG pH ABG pCO2 ABG pO2 ABG HCO3 ABG Total CO2 ABG O2 Saturation ABG Base Excess FiO2 Sodium 138.1 Potassium 3.7 Chloride 95 L Carbon Dioxide 34 H Anion Gap 9 BUN 9 Creatinine 0.38 L Est GFR ( Amer) > 60 Est GFR (Non-Af Amer) Est GFR (MDRD) Non-Af > 60 Glucose 103 POC Glucose Lactic Acid Calcium 9.7 Phosphorus Magnesium 1.4 L Total Bilirubin Direct Bilirubin Neonat Total Bilirubin Neonat Direct Bilirubin Neonat Indirect Bili AST ALT Alkaline Phosphatase Ammonia Creatine Kinase Troponin I C-Reactive Protein NT-Pro-B Natriuret Pep Total Protein Albumin Amylase Lipase EGFR TSH Free T4 Random Cortisol Urine Color Urine Appearance Urine pH Ur Specific [place] Urine Protein Urine Glucose (UA) Urine Ketones Urine Blood Urine Nitrite Urine Bilirubin Urine Urobilinogen Ur Leukocyte Esterase Urine WBC (Auto) Urine RBC (Auto) U Hyaline Cast (Auto) Squamous Epi Cells Auto Urine Mucus (Auto) Urine Ascorbic Acid Time Trough Drawn Vancomycin Trough Urine Opiates Screen Urine Methadone Screen Ur Barbiturates Screen Ur Phencyclidine Scrn Ur Amphetamines Screen U Benzodiazepines Scrn Urine Cocaine Screen U Marijuana (THC) Screen Serum Alcohol Slides for Path Review 04/03/20 04/03/20 04/03/20 07:01 07:01 07:01 WBC 11.8 H RBC 3.21 L Hgb 10.3 L Hct 30.5 L MCV 95 MCH 32.1 MCHC 33.8 RDW 17.1 H Plt Count 189 Lymph % (Auto) [place] % (Auto) Eos % (Auto) Baso % (Auto) Absolute Neuts (auto) Absolute Lymphs (auto) Absolute Monos (auto) Absolute Eos (auto) Absolute Basos (auto) Seg Neutrophils % Platelet Estimate PT INR APTT Carbonic Acid HCO3/H2CO3 Ratio ABG pH ABG pCO2 ABG pO2 ABG HCO3 ABG Total CO2 ABG O2 Saturation ABG Base Excess FiO2 Sodium 133.7 L Potassium 4.0 Chloride 96 L Carbon Dioxide 32 H Anion Gap 6 BUN 8 Creatinine 0.34 L Est GFR ( Amer) > 60 Est GFR (Non-Af Amer) Est GFR (MDRD) Non-Af > 60 Glucose 85 POC Glucose Lactic Acid Calcium 9.0 Phosphorus Magnesium 1.8 Total Bilirubin Direct Bilirubin Neonat Total Bilirubin Neonat Direct Bilirubin Neonat Indirect Bili AST ALT Alkaline Phosphatase Ammonia Creatine Kinase Troponin I C-Reactive Protein NT-Pro-B Natriuret Pep Total Protein Albumin Amylase Lipase EGFR TSH Free T4 Random Cortisol Urine Color Urine Appearance Urine pH Ur Specific [place] Urine Protein Urine Glucose (UA) Urine Ketones Urine Blood Urine Nitrite Urine Bilirubin Urine Urobilinogen Ur Leukocyte Esterase Urine WBC (Auto) Urine RBC (Auto) U Hyaline Cast (Auto) Squamous Epi Cells Auto Urine Mucus (Auto) Urine Ascorbic Acid Time Trough Drawn Vancomycin Trough Urine Opiates Screen Urine Methadone Screen Ur Barbiturates Screen Ur Phencyclidine Scrn Ur Amphetamines Screen U Benzodiazepines Scrn Urine Cocaine Screen U Marijuana (THC) Screen Serum Alcohol Slides for Path Review 04/04/20 04/04/20 05:06 10:44 WBC 6.1 RBC 3.28 L Hgb 10.5 L Hct 31.2 L MCV 95 MCH 32.0 MCHC 33.5 RDW 16.7 H Plt Count 218 Lymph % (Auto) [place] % (Auto) Eos % (Auto) Baso % (Auto) Absolute Neuts (auto) Absolute Lymphs (auto) Absolute Monos (auto) Absolute Eos (auto) Absolute Basos (auto) Seg Neutrophils % Platelet Estimate PT INR APTT Carbonic Acid HCO3/H2CO3 Ratio ABG pH ABG pCO2 ABG pO2 ABG HCO3 ABG Total CO2 ABG O2 Saturation ABG Base Excess FiO2 Sodium 131.6 L Potassium 4.8 Chloride 95 L Carbon Dioxide 31 H Anion Gap 6 BUN 14 Creatinine 0.37 L Est GFR ( Amer) > 60 Est GFR (Non-Af Amer) Est GFR (MDRD) Non-Af > 60 Glucose 160 H POC Glucose Lactic Acid Calcium 8.9 Phosphorus Magnesium Total Bilirubin Direct Bilirubin Neonat Total Bilirubin Neonat Direct Bilirubin Neonat Indirect Bili AST ALT Alkaline Phosphatase Ammonia Creatine Kinase Troponin I C-Reactive Protein NT-Pro-B Natriuret Pep Total Protein Albumin Amylase Lipase EGFR TSH Free T4 Random Cortisol Urine Color Urine Appearance Urine pH Ur Specific [place] Urine Protein Urine Glucose (UA) Urine Ketones Urine Blood Urine Nitrite Urine Bilirubin Urine Urobilinogen Ur Leukocyte Esterase Urine WBC (Auto) Urine RBC (Auto) U Hyaline Cast (Auto) Squamous Epi Cells Auto Urine Mucus (Auto) Urine Ascorbic Acid Time Trough Drawn Vancomycin Trough Urine Opiates Screen Urine Methadone Screen Ur Barbiturates Screen Ur Phencyclidine Scrn Ur Amphetamines Screen U Benzodiazepines Scrn Urine Cocaine Screen U Marijuana (THC) Screen Serum Alcohol Slides for Path Review Chest X-Ray 03/24/20 20:08 IMPRESSION: Improved aeration of the right lung base. Overall, the lungs appear clear. Stable cardiomegaly. Head CT 03/24/20 20:09 IMPRESSION: 1. No acute intracranial abnormalities. Nonspecific, mild white matter change most likely small vessel ischemic disease, age indeterminate. 2. CT is insensitive for early evaluation of acute stroke. If there is clinical concern for acute ischemia, an MRI may be considered. 3. Suspected acute on chronic sinus disease. Chest X-Ray 03/26/20 05:00 IMPRESSION: Increasing atelectasis or infiltrate right lower lobe. Chest X-Ray 04/03/20 00:00 IMPRESSION: No significant interval change. Hyperinflated lungs which can be seen with obstructive lung disease. No acute cardiopulmonary disease. IMPRESSION/RECOMMENDATION: 1. Acute exacerbation of COPD. Continue anti-COPD medication and antibiotics. At present seems that the COPD acute exacerbation is resolved. 2. SEPSIS: Positive blood cultures for Enterococcus faecalis. ID consult via Internet. Their recommendations have been noted. 3. 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 The patient appears not to be confused confused today and she is not having any hallucinations today. 4. Acute on chronic) systolic heart failure [acute on chronic cor pulmonale]. Continue diuretics continue current medication. At present seems to be compensated. 5. Pulmonary hypertension: Agree with starting the patient oncalcium channel blockers. 6. History of hypertension: Of late the patient has chronic hypotension requiring midodrine to keep her blood pressure well controlled. 7. History of chronic alcohol abuse. Patient counseled to refrain from alcohol. 8. Acute renal failure on admission. Renal function now improved GFR is greater than 60. 9. Sinus bradycardia on admission most likely this along with hypertension secondary to patient's acute renal insufficiency due to possibly dehydration and right heart failure and hyperkalemia. Note that the hyperkalemia is resolved
[2020-04-05] MEDS: LORAZEPAM INJ 2 MG/1 ML VIAL IV PRN (01:16)
[2020-04-05] MEDS: ACETAMINOPHEN 325 MG TABLET PO PRN ×2 (01:18→15:41)
[2020-04-05] MEDS: IPRATROPIUM/ALBUTEROL 0.5-2.5 MG/3 ML AMPUL NEB SCH ×4 (02:20→20:09)
[2020-04-05] MEDS: TRAMADOL HCL 50 MG TABLET PO PRN ×2 (05:36→13:09)
[2020-04-05] MEDS: VANCOMYCIN HCL 1,000 MG in DEXTROSE 5%-WATER 250 ML IV SCH ×2 (05:36→18:33)
[2020-04-05] MEDS: HEPARIN SOD (PORCINE) 5,000 UNIT/ML 1 ML VIAL SUBCUT SCH ×3 (05:36→21:52)
[2020-04-05] MEDS: GUAIFENESIN SYRP 200 MG/10 ML UDC PO PRN (05:41)
[2020-04-05] MEDS: PANTOPRAZOLE SODIUM 40 MG TABLET.DR PO SCH ×2 (07:18→16:46)
[2020-04-05 07:34] LABS: ANION GAP 8 (5-19); BLOOD UREA NITROGEN 11 mg/dL (7-20); CALCIUM 9.4 mg/dL (8.4-10.2); CARBON DIOXIDE 32 mmol/L (22-30); CHLORIDE 95 mmol/L (98-107); GLUCOSE 125 mg/dL (75-110)
[2020-04-05] MEDS: PREDNISONE 20 MG TABLET PO SCH (10:31)
[2020-04-05] MEDS: MULTIVITAMIN TABLET PO SCH (10:31)
[2020-04-05] MEDS: MIDODRINE HCL 5 MG TABLET PO SCH ×3 (10:31→18:36)
[2020-04-05] MEDS: DOCUSATE SODIUM 100 MG CAPSULE PO SCH (10:31)
[2020-04-05] MEDS: FUROSEMIDE 20 MG TABLET PO SCH (10:31)
[2020-04-05] MEDS: POTASSIUM CHLORIDE 10 MEQ TABLET.ER PO SCH (10:32)
[2020-04-05] MEDS: DIVALPROEX SODIUM 250 MG TAB.SR.24H PO SCH ×2 (10:32→18:36)
[2020-04-05] MEDS: BUSPIRONE HCL 10 MG TABLET PO SCH ×2 (10:32→21:52)
[2020-04-05] MEDS: FOLIC ACID 1 MG TABLET PO SCH (10:32)
[2020-04-05] MEDS: RISPERIDONE 0.5 MG TAB.RAPDIS PO SCH ×2 (10:34→18:36)
[2020-04-05] MEDS: COLLAGENASE CLOSTRIDIUM HIST. OINT 30 GM TOP SCH (10:35)
[2020-04-05] MEDS: THIAMINE HCL 100 MG TABLET PO SCH (10:35)
[2020-04-05] MEDS: FLUTICASONE/VILANTEROL 200-25 MCG/DOSE IH SCH (10:35)
[2020-04-05] MEDS: BUPRENORPHINE HCL 2 MG SUBLINGUAL TABLET SL SCH ×2 (12:04→21:52)
[2020-04-05] MEDS ORDERED: DILTIAZEM HCL 240 MG CAPSULE.CR PO ONE (12:30)
[2020-04-05] MEDS: DILTIAZEM HCL 180 MG CAPSULE.CR PO SCH (13:02)
[2020-04-05] MEDS: ALBUTEROL SULFATE HFA (90 MCG/PUFF) 8 GM MDI IH PRN (13:08)
[2020-04-05] MEDS: GUAIFENESIN/CODEINE PHOS 100-10 MG/ 5 ML UDC PO PRN ×2 (15:36→21:54)
--- NOTE | 2020-04-05 19:48 | Progress Note ---
Provider Note Provider Note: CARDIOLOGY progress note by Dr. Cassandra Davis on 04/05/2020. SUBJECTIVE: The patient again is coughing and wheezing. She has orthopnea but no PND. She is not confused anymore. There is no chest pain or discomfort. The cough is dry and nonproductive. There is no pleuritic chest pain. There is no hemoptysis. OBJECTIVE: The patient appears to be chronically ill and a frail build. Selected Entries 04/05/20 10:51 Temperature 97.3 F Temperature Oral Source Pulse Rate 98 Respiratory 20 Rate Blood Pressure 100/68 Blood Pressure 78 Mean BP Location Left Arm BP Position Sitting Oxygen Flow 3.00 Rate Oxygen Delivery Nasal Cannula Method HEAD: Is atraumatic normocephalic. EYES: Pupils equal round regular reactive to light accommodation. Extraocular movements are normal. There is no conjunctival pallor. There is no scleral icterus. EARS: Tympanic membranes are intact. External auditory canals are clear. MOUTH: Mucous membranes of mouth are moist. Tongue is moist. There is no ulcers. THROAT: There is no redness of the oropharynx. There is no exudates. NECK: There is no JVD carotids are equal there is no bruit there is no lymphadenopathy. There is no goiter. LUNGS: There is bilateral scattered rhonchi and bilateral wheezing. No rales of CHF. HEART: S1-S2 is heard there is no S3 gallop there is no S4 gallop. There is systolic murmur left sternal border and the apex there is no rub. ABDOMEN: Soft nontender there is no paraspinal megaly. Bowel sounds are well heard. EXTREMITIES: Femorals are diminished. There is no femoral bruits leg pulses are diminished. There is mild pedal edema bilaterally. There is no DVT or cellu litis. There is no calf tenderness. There is no cyanosis or clubbing. 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 PSYCHIATRIC: The patient is delirious but does not appear to be agitated. Labs- All tests 24 hr 04/05/20 06:35 Sodium 134.6 L Potassium 4.0 Chloride 95 L Carbon Dioxide 32 H Anion Gap 8 BUN 11 Creatinine 0.42 L Est GFR ( Amer) > 60 Est GFR (MDRD) Non-Af > 60 Glucose 125 H Calcium 9.4 Chest X-Ray 03/24/20 20:08 IMPRESSION: Improved aeration of the right lung base. Overall, the lungs appear clear. Stable cardiomegaly. Head CT 03/24/20 20:09 IMPRESSION: 1. No acute intracranial abnormalities. Nonspecific, mild white matter change most likely small vessel ischemic disease, age indeterminate. 2. CT is insensitive for early evaluation of acute stroke. If there is clinical concern for acute ischemia, an MRI may be considered. 3. Suspected acute on chronic sinus disease. Chest X-Ray 03/26/20 05:00 IMPRESSION: Increasing atelectasis or infiltrate right lower lobe. Chest X-Ray 04/03/20 00:00 IMPRESSION: No significant interval change. Hyperinflated lungs which can be seen with obstructive lung disease. No acute cardiopulmonary disease. IMPRESSION/RECOMMENDATION: 1. Acute exacerbation of COPD. Renal recurrence. Continue anti-COPD medication and antibiotics. At present seems that the COPD acute exacerbation is resolved. 2. SEPSIS: Positive blood cultures for Enterococcus faecalis. ID consult via Internet. Their recommendations have been noted. 3. 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 The patient appears not to be confused confused today and she is not having any hallucinations today. 4. Acute on chronic) systolic heart failure [acute on chronic cor pulmonale]. Continue diuretics continue current medication. At present seems to be compensated. 5. Pulmonary hypertension: Agree with starting the patient oncalcium channel blockers. 6. History of hypertension: Of late the patient has chronic hypotension requiring midodrine to keep her blood pressure well controlled. 7. History of chronic alcohol abuse. Patient counseled to refrain from alcohol. 8. Acute renal failure on admission. Renal function now improved GFR is greater than 60. 9. Sinus bradycardia on admission most likely this along with hypertension secondary to patient's acute renal insufficiency due to possibly dehydration and right heart failure and hyperkalemia. Note that the hyperkalemia is resolved 10. Cough: This is secondary to acute exacerbation of COPD.
[2020-04-05] MEDS ORDERED: NORMAL SALINE 1000 ML 1,000 ML IV ONE (20:30)
[2020-04-06] MEDS: IPRATROPIUM/ALBUTEROL 0.5-2.5 MG/3 ML AMPUL NEB SCH ×4 (02:15→20:21)
[2020-04-06] MEDS: ACETAMINOPHEN 325 MG TABLET PO PRN ×2 (05:26→17:31)
[2020-04-06] MEDS: VANCOMYCIN HCL 1,000 MG in DEXTROSE 5%-WATER 250 ML IV SCH ×2 (05:27→17:30)
[2020-04-06] MEDS: GUAIFENESIN/CODEINE PHOS 100-10 MG/ 5 ML UDC PO PRN ×2 (05:27→09:15)
[2020-04-06] MEDS: HEPARIN SOD (PORCINE) 5,000 UNIT/ML 1 ML VIAL SUBCUT SCH ×3 (05:27→21:05)
[2020-04-06 05:48] LABS: ANION GAP 8 (5-19); BLOOD UREA NITROGEN 11 mg/dL (7-20); CARBON DIOXIDE 30 mmol/L (22-30); CHLORIDE 93 mmol/L (98-107); GLUCOSE 73 mg/dL (75-110); POTASSIUM 4.4 mmol/L (3.6-5.0)
--- NOTE | 2020-04-06 06:54 | PDOC PROGRESS REPORT ---
Subjective Date:: 04/05/20 Subjective:: Patient is a 59-year-old -[place] female presented to [facility] emergency department via EMS on 03/24/2020 with altered mental status. Briefly, patient was admitted to the ICU for altered mental status, hypotension, and bradycardia. Required short dopamine drip with improvement of her bradycardia and hypotension. She experienced DT secondary to alcoholic w ithdrawal in ICU. Transferred out of ICU 03/27. On antibiotics for Enterococcus bacteremia. Patient seen on morning rounds. She is resting upright in bed. O2 sats are within normal limits on room air. Cough and wheezing continue to improve. She is without hallucinations. Significant relief with continued breathing treatments. Otherwise tell me that she is doing well and has no other complai nts or concerns. Discussed with nursing no acute events overnight. Reason For Visit: SHOCK ABTUNDED [facility] ACUTE KIDNEY INJURY Physical Exam Vital Signs: Temp Pulse Resp BP Pulse Ox 98.0 F 102 H 20 101/61 93 04/05/20 15:27 04/05/20 15:27 04/05/20 15:27 04/05/20 15:27 04/05/20 14:18 Intake & Output 04/04/20 04/05/20 04/06/20 06:59 06:59 06:59 Intake Total 740 500 250 Output Total 500 Balance 240 500 250 Weight 70.1 kg 69.3 kg Additional comments: General appearance: PRESENT: Alert, cooperative, pleasant with interactions. Eye exam: PRESENT: EOMI Respiratory exam: PRESENT: symmetrical, unlabored, persistent rhonch, primarily lower lung lemus bilaterally. Wheezing persist though reduced from yesterday. ABSENT: stridor, tachypnea Cardiovascular exam: PRESENT: Tachycardic, heart rate low 100s. Sinus tach on telemetry. Extremities exam: PRESENT: full ROM, minimal pedal edema noted significantly improved from previous. Neurological exam: PRESENT: alert, awake, oriented to person Psychiatric exam: PRESENT: Appropriate mood and affect. ABSENT: Anxious Skin exam: PRESENT: dry, without rash. Results Laboratory Results: 04/04/20 10:44 04/05/20 06:35 04/05/20 06:35 Sodium 134.6 L Potassium 4.0 Chloride 95 L Carbon Dioxide 32 H Anion Gap 8 BUN 11 Creatinine 0.42 L Est GFR ( Amer) > 60 Glucose 125 H Calcium 9.4 03/30/20 14:39 Blood Blood Culture - Final NO GROWTH IN 5 DAYS 03/30/20 14:14 Blood Blood Culture - Final NO GROWTH IN 5 DAYS 03/24/20 03/24/20 03/25/20 20:10 20:10 02:47 Creatine Kinase 32 Troponin I 0.097 0.114 NT-Pro-B Natriuret Pep 2480 H 03/25/20 03/25/20 03/25/20 02:47 08:06 14:42 Creatine Kinase Troponin I 0.134 0.166 NT-Pro-B Natriuret Pep 2080 H 03/26/20 03/27/20 04:11 04:10 Creatine Kinase Troponin I NT-Pro-B Natriuret Pep 3290 H 6880 H Impressions: Head CT 03/24/20 20:09 IMPRESSION: 1. No acute intracranial abnormalities. Nonspecific, mild white matter change most likely small vessel ischemic disease, age indeterminate. 2. CT is insensitive for early evaluation of acute stroke. If there is clinical concern for acute ischemia, an MRI may be considered. 3. Suspected acute on chronic sinus disease. Chest X-Ray 04/03/20 00:00 IMPRESSION: No significant interval change. Hyperinflated lungs which can be seen with obstructive lung disease. No acute cardiopulmonary disease. Assessment and Plan - Diagnosis (1) Coagulase negative Staphylococcus bacteremia Is this a current diagnosis for this admission?: Yes Plan: Continue vanc. Blood cultures WGTD. 3 out of 4 BCx bottles have come back with Methicillin resistant coagulase- negative staph suggestive of true bacteremia. Infection presented despite vancomycin since 03/26. Switched to daptomycin 03/31, discontinued 04/01 as per ID recommendations. ID consulted, note reviewed case discussed recommendations as follows: - "Blood culture positive for Enterococcus faecalis, source could be the foot vs aspiration as well." - "Vancomycin is adequate in the setting of penicillin allergy." - "Recommend to switch back to vancomycin to treat for 14 days for bacteremia." Vancomycin restarted 03/31, dosing as per pharmacist. - EOT for bacteremia will be 04/07/20 - Daily BMP (2) Enterococcal bacteremia Is this a current diagnosis for this admission?: Yes Plan: Continue Vanco as above. Has been on vancomycin since 03/26/2020. - Blood cultures 03/28 clearance of Enterococcus. - BC 03/30 WGTD. - Changed to daptomycin 03/30. Id consulted as above. - Vancomycin restarted 03/31, dosing as per pharmacist. - EOT for bacteremia will be 04/07/20 (3) COPD (chronic obstructive pulmonary disease) Qualifiers: COPD type: COPD with acute exacerbation Qualified Code(s): J44.1 - Chronic obstructive pulmonary disease with (acute) exacerbation Is this a current diagnosis for this admission?: Yes Plan: Improved. CXR today: hyperinflated lungs with obstructive lung disease, without changes form previous. Prednisone x5 days. Continue breathing treatments as needed. (4) Alcohol withdrawal Qualifiers: Complication of substance-induced condition: with unspecified complication Qualified Code(s): F10.239 - Alcohol dependence with withdrawal, unspecified Is this a current diagnosis for this admission?: Yes Plan: Patient without hallucinations today. Continue medications as per psychs recommendations: - Continue respiradone - Continue Ativan IV q 6hr - Continue Buspar 5mg BID - Continue Depakote ER 250mg BID Ativan seems to be most beneficial to the patient. (5) Alcoholic encephalopathy Is this a current diagnosis for this admission?: Yes Plan: Patient at her baseline now. Continue thiamine and folate supplementation. (6) CHF (congestive heart failure) Qualifiers: Heart failure type: unspecified Heart failure chronicity: unspecified Qualified Code(s): I50.9 - Heart failure, unspecified Is this a current diagnosis for this admission?: Yes Plan: Noted improvement in lower extremity edema and shortness of breath no longer requiring O2 supplementation at this time. Without PND or orthopnea. - Continue home dose po lasix. -Continue current dose of Cardizem. Echo (03/25): LV EF 55% with mild concentric LVH. Grade 1/4 diastolic dysfunction. RA mild to moderately dilated. RV mild to moderately dilated. Mild mitral regurgitation, RVSP 50-55mmHg. (7) Pulmonary hypertension Is this a current diagnosis for this admission?: Yes (8) Septic shock Is this a current diagnosis for this admission?: Yes Plan: Resolved. (9) Lung cancer Qualifiers: Laterality: left Lung location: overlapping sites Qualified Code(s): C34.82 - Malignant neoplasm of overlapping sites of left bronchus and lung Is this a current diagnosis for this admission?: Yes Plan: Outpt f/u with Dr. Robertson (10) Diarrhea Qualifiers: Diarrhea type: unspecified type Qualified Code(s): R19.7 - Diarrhea, unspecified Is this a current diagnosis for this admission?: Yes Plan: Resolved without intervention. (11) Pressure ulcer of dorsum of right foot Is this a current diagnosis for this admission?: Yes Plan: Wound care on board, dressing changes as per their recommendations. (12) Tobacco abuse Is this a current diagnosis for this admission?: Yes Plan: Implement nicotine patch. Provided at least 3 minutes of education and encouragement regarding stopping tobacco use. (13) Lactic acid acidosis Is this a current diagnosis for this admission?: Yes Plan: Resolved. (14) Hypomagnesemia Is this a current diagnosis for this admission?: Yes Plan: Resolved. - Plan Summary Summary: Continue with vancomycin as per pharmacy dosing with EOT 04/07. Remains without hallucinations and is overall doing well. Prednisone and Tessalon Perles on board for cough and wheezing suppressant. - Time Time Spent with patient: 25-34 minutes Anticipated Discharge Disposition: Home, Self Care Anticipated Discharge Timeframe: within 72 hours
[2020-04-06] MEDS: PANTOPRAZOLE SODIUM 40 MG TABLET.DR PO SCH ×2 (07:46→17:32)
[2020-04-06] MEDS: FLUTICASONE/VILANTEROL 200-25 MCG/DOSE IH SCH (09:01)
[2020-04-06] MEDS: DOCUSATE SODIUM 100 MG CAPSULE PO SCH (09:02)
[2020-04-06] MEDS: DIVALPROEX SODIUM 250 MG TAB.SR.24H PO SCH ×2 (09:02→17:31)
[2020-04-06] MEDS: FUROSEMIDE 20 MG TABLET PO SCH (09:02)
[2020-04-06] MEDS: MULTIVITAMIN TABLET PO SCH (09:02)
[2020-04-06] MEDS: FOLIC ACID 1 MG TABLET PO SCH (09:02)
[2020-04-06] MEDS: BUSPIRONE HCL 10 MG TABLET PO SCH ×2 (09:02→21:05)
[2020-04-06] MEDS: COLLAGENASE CLOSTRIDIUM HIST. OINT 30 GM TOP SCH (09:03)
[2020-04-06] MEDS: MIDODRINE HCL 5 MG TABLET PO SCH ×3 (09:03→17:32)
[2020-04-06] MEDS: THIAMINE HCL 100 MG TABLET PO SCH (09:03)
[2020-04-06] MEDS: POTASSIUM CHLORIDE 10 MEQ TABLET.ER PO SCH (09:03)
[2020-04-06] MEDS: PREDNISONE 20 MG TABLET PO SCH (09:03)
[2020-04-06] MEDS: RISPERIDONE 0.5 MG TAB.RAPDIS PO SCH ×2 (09:03→17:39)
[2020-04-06] MEDS: BUPRENORPHINE HCL 2 MG SUBLINGUAL TABLET SL SCH ×2 (09:15→21:05)
[2020-04-06] MEDS ORDERED: FUROSEMIDE INJ/PF 40 MG/4 ML SDV IV ONE (12:15)
[2020-04-06] MEDS: DILTIAZEM HCL 240 MG CAPSULE.CR PO SCH (12:18)
[2020-04-06] MEDS: TRAMADOL HCL 50 MG TABLET PO PRN (14:49)
[2020-04-06] MEDS ORDERED: HYDROCODONE PO PRN (16:58)
[2020-04-06] MEDS ORDERED: CHLORPHENIRAMINE PO PRN (16:58)
[2020-04-06] MEDS: TUSSIONEX PO PRN (17:40)
--- NOTE | 2020-04-06 18:29 | PDOC PROGRESS REPORT ---
Subjective Date:: 04/06/20 Subjective:: Patient is a 59-year-old -[place] female presented to [facility] emergency department via EMS on 03/24/2020 with altered mental status. Briefly, patient was admitted to the ICU for altered mental status, hypotension, and bradycardia. Required short dopamine drip with improvement of her bradycardia and hypotension. She experienced DT secondary to alcoholic w ithdrawal in ICU. Transferred out of ICU 03/27. On antibiotics for Enterococcus bacteremia. Patient seen on morning rounds. She is sitting at the edge of her bed comfortably. She has supplemental oxygen on with O2 sat within normal limits. Of note she uses 2 to 3 L supplemental nasal cannula at home. With persistent cough and wheeze. She is without hallucinations. Otherwise tell me that she is doing well and has no other complaints or concerns. Discussed with nursing no acute events overnight. Reason For Visit: SHOCK ABTUNDED HENRY ACUTE KIDNEY INJURY Physical Exam Vital Signs: Temp Pulse Resp BP Pulse Ox 99.5 F 112 H 18 100/75 94 04/06/20 13:09 04/06/20 14:20 04/06/20 14:20 04/06/20 13:09 04/06/20 14:20 Intake & Output 04/05/20 04/06/20 04/07/20 06:59 06:59 06:59 Intake Total 500 1000 490 Output Total 260 Balance 500 740 490 Weight 69.3 kg 69.3 kg Additional comments: General appearance: PRESENT: Alert, cooperative, pleasant with interactions. Eye exam: PRESENT: EOMI Respiratory exam: PRESENT: symmetrical, unlabored, persistent rhonch, primarily lower lung lemus bilaterally. Wheezing. ABSENT: stridor, tachypnea Cardiovascular exam: PRESENT: Tachycardic, heart rate low 100s. Sinus tach on telemetry. Extremities exam: PRESENT: full ROM, minimal pedal edema noted significantly improved from previous. Neurological exam: PRESENT: alert, awake, oriented to person Psychiatric exam: PRESENT: Appropriate mood and affect. ABSENT: Anxious Skin exam: PRESENT: dry, without rash. Results Laboratory Results: 04/04/20 10:44 04/06/20 04:18 04/06/20 04:18 Sodium 130.6 L Potassium 4.4 Chloride 93 L Carbon Dioxide 30 Anion Gap 8 BUN 11 Creatinine 0.29 L Est GFR ( Amer) > 60 Glucose 73 L Calcium 9.0 03/24/20 03/24/20 03/25/20 20:10 20:10 02:47 Creatine Kinase 32 Troponin I 0.097 0.114 NT-Pro-B Natriuret Pep 2480 H 03/25/20 03/25/20 03/25/20 02:47 08:06 14:42 Creatine Kinase Troponin I 0.134 0.166 NT-Pro-B Natriuret Pep 2080 H 03/26/20 03/27/20 04:11 04:10 Creatine Kinase Troponin I NT-Pro-B Natriuret Pep 3290 H 6880 H Impressions: Head CT 03/24/20 20:09 IMPRESSION: 1. No acute intracranial abnormalities. Nonspecific, mild white matter change most likely small vessel ischemic disease, age indeterminate. 2. CT is insensitive for early evaluation of acute stroke. If there is clinical concern for acute ischemia, an MRI may be considered. 3. Suspected acute on chronic sinus disease. Chest X-Ray 04/03/20 00:00 IMPRESSION: No significant interval change. Hyperinflated lungs which can be seen with obstructive lung disease. No acute cardiopulmonary disease. Assessment and Plan - Diagnosis (1) Coagulase negative Staphylococcus bacteremia Is this a current diagnosis for this admission?: Yes Plan: Continue vanc. Blood cultures WGTD. EOT 04/07/2020 3 out of 4 BCx bottles have come back with Methicillin resistant coagulase- negative staph suggestive of true bacteremia. Infection presented despite vancomycin since 03/26. Switched to daptomycin 03/31, discontinued 04/01 as per ID recommendations. ID consulted, note reviewed case discussed recommendations as follows: - "Blood culture positive for Enterococcus faecalis, source could be the foot vs aspiration as well." - "Vancomycin is adequate in the setting of penicillin allergy." - "Recommend to switch back to vancomycin to treat for 14 days for bacteremia." Vancomycin restarted 03/31, dosing as per pharmacist. - EOT for bacteremia will be 04/07/20 - Daily BMP (2) Enterococcal bacteremia Is this a current diagnosis for this admission?: Yes Plan: Continue Vanco as above. Has been on vancomycin since 03/26/2020. - Blood cultures 03/28 clearance of Enterococcus. - BC 03/30 WGTD. - Changed to daptomycin 03/30. Id consulted as above. - Vancomycin restarted 03/31, dosing as per pharmacist. - EOT for bacteremia will be 04/07/20 (3) COPD (chronic obstructive pulmonary disease) Qualifiers: COPD type: COPD with acute exacerbation Qualified Code(s): J44.1 - Chronic obstructive pulmonary disease with (acute) exacerbation Is this a current diagnosis for this admission?: Yes Plan: Improved. CXR today: hyperinflated lungs with obstructive lung disease, without changes form previous. Prednisone x5 days completed. Continue breathing treatments as needed. (4) Alcohol withdrawal Qualifiers: Complication of substance-induced condition: with unspecified complication Qualified Code(s): F10.239 - Alcohol dependence with withdrawal, unspecified Is this a current diagnosis for this admission?: Yes Plan: Patient without hallucinations today. Continue medications as per psychs recommendations: - Continue respiradone - Continue Ativan IV q 6hr - Continue Buspar 5mg BID - Continue Depakote ER 250mg BID Ativan seems to be most beneficial to the patient. (5) Alcoholic encephalopathy Is this a current diagnosis for this admission?: Yes Plan: Patient at her baseline now. Continue thiamine and folate supplementation. (6) CHF (congestive heart failure) Qualifiers: Heart failure type: unspecified Heart failure chronicity: unspecified Qualified Code(s): I50.9 - Heart failure, unspecified Is this a current diagnosis for this admission?: Yes Plan: Noted improvement in lower extremity edema and shortness of breath no longer requiring O2 supplementation at this time. Without PND or orthopnea. - Continue home dose po lasix. Wet lung sounds, initiate single dose IV lasix. -Continue current dose of Cardizem. Echo (03/25): LV EF 55% with mild concentric LVH. Grade 1/4 diastolic dysfunction. RA mild to moderately dilated. RV mild to moderately dilated. Mild mitral regurgitation, RVSP 50-55mmHg. (7) Pulmonary hypertension Is this a current diagnosis for this admission?: Yes (8) Septic shock Is this a current diagnosis for this admission?: Yes Plan: Resolved. (9) Lung cancer Qualifiers: Laterality: left Lung location: overlapping sites Qualified Code(s): C34.82 - Malignant neoplasm of overlapping sites of left bronchus and lung Is this a current diagnosis for this admission?: Yes Plan: Outpt f/u with Dr. Robertson (10) Diarrhea Qualifiers: Diarrhea type: unspecified type Qualified Code(s): R19.7 - Diarrhea, unspecified Is this a current diagnosis for this admission?: Yes Plan: Resolved without intervention. (11) Pressure ulcer of dorsum of right foot Is this a current diagnosis for this admission?: Yes Plan: Wound care on board, dressing changes as per their recommendations. (12) Tobacco abuse Is this a current diagnosis for this admission?: Yes Plan: Implement nicotine patch. Provided at least 3 minutes of education and encouragement regarding stopping tobacco use. (13) Lactic acid acidosis Is this a current diagnosis for this admission?: Yes Plan: Resolved. (14) Hypomagnesemia Is this a current diagnosis for this admission?: Yes Plan: Resolved. - Plan Summary Summary: Continue with vancomycin as per pharmacy dosing with EOT 04/07. - Time Time Spent with patient: 15-24 minutes Anticipated Discharge Disposition: Home, Self Care Anticipated Discharge Timeframe: within 24 hours
[2020-04-06] MEDS: ALBUTEROL SULFATE HFA (90 MCG/PUFF) 8 GM MDI IH PRN (22:00)
--- NOTE | 2020-04-06 22:29 | Progress Note ---
Provider Note Provider Note: CARDIOLOGY PROGRESS NOTE by Dr. Cassandra Davis on 04/06/2020. SUBJECTIVE: The patient is not confused anymore. She has no visual or auditory hallucinations. Her cough is improved and her breathing is better. She denies any PND orthopnea or leg edema. There is no palpitations near syncope or syncope. There is no leg edema. PHYSICAL EXAMINATION: The patient is a frail build and appears to be chronically ill. In no major distress. Selected Entries 04/06/20 15:49 Temperature 99.8 F Temperature Oral Source Pulse Rate 117 H Respiratory 24 H Rate Blood Pressure 95/62 L Blood Pressure 73 Mean BP Location Left Arm BP Position Sitting O2 Sat by Pulse 95 Oximetry Oxygen Flow 3.00 Rate Oxygen Delivery Nasal Cannula Method HEAD: Is atraumatic normocephalic. EYES: Pupils equal round regular reactive to light accommodation. Extraocular movements are normal. There is no conjunctival pallor. There is no scleral icterus. EARS: Tympanic membranes are intact. External auditory canals are clear. MOUTH: Mucous membranes of mouth are moist. Tongue is moist. There is no ulcers. THROAT: There is no redness of the oropharynx. There is no exudates. NECK: There is no JVD carotids are equal there is no bruit there is no lymphadenopathy. There is no goiter. LUNGS: There is bilateral scattered rhonchi and bilateral wheezing. No rales of CHF. HEART: S1-S2 is heard there is no S3 gallop there is no S4 gallop. There is systolic murmur left sternal border and the apex there is no rub. ABDOMEN: Soft nontender there is no paraspinal megaly. Bowel sounds are well heard. EXTREMITIES: Femorals are diminished. There is no femoral bruits leg pulses are diminished. There is mild pedal edema bilaterally. There is no DVT or cellulitis. There is no calf tenderness. There is no cyanosis or clubbing. MUSIC EDUCATOR: The patient is conscious awake alert, but confused and disoriented x3. PSYCHIATRIC: The patient is not delirious but does not appear to be agitated. Labs- All tests 24 hr 04/06/20 04:18 Sodium 130.6 L Potassium 4.4 Chloride 93 L Carbon Dioxide 30 Anion Gap 8 BUN 11 Creatinine 0.29 L Est GFR ( Amer) > 60 Est GFR (MDRD) Non-Af > 60 Glucose 73 L Calcium 9.0 Chest X-Ray 03/24/20 20:08 IMPRESSION: Improved aeration of the right lung base. Overall, the lungs appear clear. Stable cardiomegaly. Head CT 03/24/20 20:09 IMPRESSION: 1. No acute intracranial abnormalities. Nonspecific, mild white matter change most likely small vessel ischemic disease, age indeterminate. 2. CT is insensitive for early evaluation of acute stroke. If there is clinical concern for acute ischemia, an MRI may be considered. 3. Suspected acute on chronic sinus disease. Chest X-Ray 03/26/20 05:00 IMPRESSION: Increasing atelectasis or infiltrate right lower lobe. Chest X-Ray 04/03/20 00:00 IMPRESSION: No significant interval change. Hyperinflated lungs which can be seen with obstructive lung disease. No acute cardiopulmonary disease. IMPRESSION/RECOMMENDATION: 1. Acute exacerbation of COPD. There has been recurrence recurrence. Continue anti-COPD medication and antibiotics. At present seems that the COPD acute exacerbation is improving.. 2. SEPSIS: Positive blood cultures for Enterococcus faecalis. ID consult via Internet. Their recommendations have been noted. 3. 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 The patient appears not to be confused confused today and she is not having any hallucinations today. 4. Acute on chronic) systolic heart failure [acute on chronic cor pulmonale]. Continue diuretics continue current medication. At present seems to be compensated. 5. Pulmonary hypertension: Agree with starting the patient oncalcium channel blockers. 6. History of hypertension: Of late the patient has chronic hypotension requiring midodrine to keep her blood pressure well controlled. 7. History of chronic alcohol abuse. Patient counseled to refrain from alcohol. 8. Acute renal failure on admission. Renal function now improved GFR is greater than 60. 9. Sinus bradycardia on admission most likely this along with hypertension secondary to patient's acute renal insufficiency due to possibly dehydration and right heart failure and hyperkalemia. Note that the hyperkalemia is resolved 10. Cough: This is secondary to acute exacerbation of COPD. Medications reviewed. Medical regimen management plan discussed with attending provider on the case. Medical decision making is of moderate complexity. 40 minutes spent on this patient with 50% of the time spent in direct patient care. Will follow.
[2020-04-07] MEDS: IPRATROPIUM/ALBUTEROL 0.5-2.5 MG/3 ML AMPUL NEB SCH ×4 (01:29→20:58)
[2020-04-07] MEDS: VANCOMYCIN HCL 1,000 MG in DEXTROSE 5%-WATER 250 ML IV SCH ×2 (05:31→21:35)
[2020-04-07] MEDS: HEPARIN SOD (PORCINE) 5,000 UNIT/ML 1 ML VIAL SUBCUT SCH ×2 (05:31→13:27)
[2020-04-07] MEDS: ALBUTEROL SULFATE HFA (90 MCG/PUFF) 8 GM MDI IH PRN (05:49)
[2020-04-07] MEDS: ACETAMINOPHEN 325 MG TABLET PO PRN (06:10)
[2020-04-07] MEDS: TUSSIONEX PO PRN ×2 (06:29→16:52)
[2020-04-07 06:50] LABS: ARTERIAL BLOOD BASE EXCESS 6.3 mmol/L; ARTERIAL BLOOD H2CO3 1.34 mmol/L (1.05-1.35); ARTERIAL BLOOD HCO3 30.9 mmol/L (20-24); ARTERIAL BLOOD O2 SATURATION 89.8 % (94-98); ARTERIAL BLOOD PCO2 44.5 mmHg (35-45); ARTERIAL BLOOD PH 7.46 (7.35-7.45); ARTERIAL BLOOD PO2 54.6 mmHg (80-100); ARTERIAL BLOOD TOTAL CO2 32.2 mmol/L (21-25)
[2020-04-07 06:55] LABS: ARTERIAL BLOOD FIO2 75%
[2020-04-07 07:19] LABS: ANION GAP 8 (5-19); BLOOD UREA NITROGEN 13 mg/dL (7-20); CARBON DIOXIDE 33 mmol/L (22-30); CHLORIDE 87 mmol/L (98-107); GLUCOSE 116 mg/dL (75-110); POTASSIUM 3.9 mmol/L (3.6-5.0)
--- NOTE | 2020-04-07 07:56 | RADIOLOGY REPORT (SQ) ---
EXAM: XR Chest, 1 View EXAM DATE/TIME: 04/07/2020 6:46 AM CLINICAL HISTORY: The patient is 59 years old and is Female; SOB, tachypnea TECHNIQUE: Frontal view of the chest. COMPARISON: Chest radiograph from 04/03/2020 FINDINGS: LUNGS: Interval increase in density in the left lower lung, suspicious for pneumonia. There is minimal interstitial prominence in the right lower lung which appears similar to the prior study. The upper lungs are clear. PLEURAL SPACE: Unremarkable. No pneumothorax. HEART: Stable moderate enlargement of the cardiac silhouette. MEDIASTINUM: Unremarkable. BONES/JOINTS: No acute osseous findings. TUBES, LINES AND DEVICES: Right chest port in place, terminating in the SVC. IMPRESSION: Left lower lung opacity, suspicious for pneumonia.
[2020-04-07 07:58] LABS: HEMATOCRIT 29.4 % (36.0-47.0); MEAN CORPUSCULAR HEMOGLOBIN 32.3 pg (27.0-33.4); MEAN CORPUSCULAR HGB CONC 34.1 g/dL (32.0-36.0); MEAN CORPUSCULAR VOLUME 95 fl (80-97); PLATELET COUNT 230 10^3/uL (150-450); RED CELL DISTRIBUTION WIDTH 16.9 % (11.5-14.0); WHITE BLOOD COUNT 9.9 10^3/uL (4.0-10.5)
[2020-04-07] MEDS: RISPERIDONE 0.5 MG TAB.RAPDIS PO SCH ×2 (10:56→17:01)
[2020-04-07] MEDS: PANTOPRAZOLE SODIUM 40 MG TABLET.DR PO SCH ×2 (10:56→15:07)
[2020-04-07] MEDS: BUPRENORPHINE HCL 2 MG SUBLINGUAL TABLET SL SCH ×2 (10:56→21:43)
[2020-04-07] MEDS: PREDNISONE 20 MG TABLET PO SCH (10:57)
[2020-04-07] MEDS: DIVALPROEX SODIUM 250 MG TAB.SR.24H PO SCH ×2 (10:57→17:00)
[2020-04-07] MEDS: BUSPIRONE HCL 10 MG TABLET PO SCH ×2 (10:57→21:44)
[2020-04-07] MEDS: FOLIC ACID 1 MG TABLET PO SCH (10:57)
[2020-04-07] MEDS: MIDODRINE HCL 5 MG TABLET PO SCH ×4 (10:57→17:01)
[2020-04-07] MEDS: MULTIVITAMIN TABLET PO SCH (10:58)
[2020-04-07] MEDS: COLLAGENASE CLOSTRIDIUM HIST. OINT 30 GM TOP SCH (10:58)
[2020-04-07] MEDS: FUROSEMIDE 20 MG TABLET PO SCH (10:58)
[2020-04-07] MEDS: FLUTICASONE/VILANTEROL 200-25 MCG/DOSE IH SCH (10:58)
[2020-04-07] MEDS: POTASSIUM CHLORIDE 10 MEQ TABLET.ER PO SCH (10:58)
[2020-04-07] MEDS: THIAMINE HCL 100 MG TABLET PO SCH (11:02)
[2020-04-07] MEDS: DILTIAZEM HCL 240 MG CAPSULE.CR PO SCH (11:06)
[2020-04-07 13:01] LABS: C-REACTIVE PROTEIN 197.5 mg/L (<10.0)
[2020-04-07] MEDS: GUAIFENESIN SYRP 200 MG/10 ML UDC PO PRN (13:27)
[2020-04-07] MEDS: CEFEPIME HCL 2 GM in DEXTROSE 5%-WATER 50 ML IV SCH ×2 (13:27→21:45)
[2020-04-07] MEDS: TRAMADOL HCL 50 MG TABLET PO PRN (13:42)
--- NOTE | 2020-04-07 13:57 | PDOC PROGRESS REPORT ---
Subjective Date:: 04/07/20 Subjective:: Patient is a 59-year-old -[place] female presented to [facility] emergency department via EMS on 03/24/2020 with altered mental status. Briefly, patient was admitted to the ICU for altered mental status, hypotension, and bradycardia. Required short dopamine drip with improvement of her bradycardia and hypotension. She experienced DT secondary to alcoholic w ithdrawal in ICU. Transferred out of ICU 03/27. On antibiotics for Enterococcus bacteremia. Patient seen on morning rounds. She is on 6 L nasal cannula with O2 sats in the 90s. Per nursing patient became more hypoxic last night with increased cough, difficulty breathing, tachypnea and tachycardia. Patient reports shortness of breath, cough, body aches upon waking this morning. chest x-ray obtained consistent with developing pneumonia. Patient hypoxic/hypercapnic on ABG. Reason For Visit: SHOCK ABTUNDED HENRY ACUTE KIDNEY INJURY Physical Exam Vital Signs: Temp Pulse Resp BP Pulse Ox 98.1 F 125 H 20 104/60 90 L 04/07/20 08:50 04/07/20 08:25 04/07/20 08:25 04/07/20 07:16 04/07/20 08:25 Intake & Output 04/06/20 04/07/20 04/08/20 06:59 06:59 06:59 Intake Total 1000 740 250 Output Total 260 Balance 740 740 250 Weight 69.3 kg 73.5 kg 73.5 kg Additional comments: General appearance: PRESENT: Alert, cooperative, pleasant with interactions. Eye exam: PRESENT: EOMI Respiratory exam: PRESENT: symmetrical, unlabored, rhonchi, primarily lower lung lemus bilaterally. Wheezing. ABSENT: stridor Cardiovascular exam: PRESENT: Tachycardic, heart rate low 100s. Sinus tach on telemetry. Extremities exam: PRESENT: full ROM, minimal pedal edema noted significantly improved from previous. Neurological exam: PRESENT: alert, awake, oriented to person Psychiatric exam: PRESENT: Appropriate mood and affect. ABSENT: Anxious Skin exam: PRESENT: dry, without rash. Results Laboratory Results: 04/07/20 06:31 04/07/20 06:31 04/07/20 04/07/20 04/07/20 06:30 06:31 06:31 WBC 9.9 RBC 3.10 L Hgb 10.0 L Hct 29.4 L MCV 95 MCH 32.3 MCHC 34.1 RDW 16.9 H Plt Count 230 Carbonic Acid 1.34 HCO3/H2CO3 Ratio 23:1 ABG pH 7.46 H ABG pCO2 44.5 ABG pO2 54.6 L ABG HCO3 30.9 H ABG O2 Saturation 89.8 L ABG Base Excess 6.3 FiO2 75% Sodium 128.2 L Potassium 3.9 Chloride 87 L Carbon Dioxide 33 H Anion Gap 8 BUN 13 Creatinine 0.39 L Est GFR ( Amer) > 60 Glucose 116 H Lactic Acid Calcium 9.0 C-Reactive Protein 04/07/20 04/07/20 12:00 12:00 WBC RBC Hgb Hct MCV MCH MCHC RDW Plt Count Carbonic Acid HCO3/H2CO3 Ratio ABG pH ABG pCO2 ABG pO2 ABG HCO3 ABG O2 Saturation ABG Base Excess FiO2 Sodium Potassium Chloride Carbon Dioxide Anion Gap BUN Creatinine Est GFR ( Amer) Glucose Lactic Acid 1.4 Calcium C-Reactive Protein 197.5 H 03/24/20 03/24/20 03/25/20 20:10 20:10 02:47 Creatine Kinase 32 Troponin I 0.097 0.114 NT-Pro-B Natriuret Pep 2480 H 03/25/20 03/25/20 03/25/20 02:47 08:06 14:42 Creatine Kinase Troponin I 0.134 0.166 NT-Pro-B Natriuret Pep 2080 H 03/26/20 03/27/20 04:11 04:10 Creatine Kinase Troponin I NT-Pro-B Natriuret Pep 3290 H 6880 H Impressions: Head CT 03/24/20 20:09 IMPRESSION: 1. No acute intracranial abnormalities. Nonspecific, mild white matter change most likely small vessel ischemic disease, age indeterminate. 2. CT is insensitive for early evaluation of acute stroke. If there is clinical concern for acute ischemia, an MRI may be considered. 3. Suspected acute on chronic sinus disease. Chest X-Ray 04/07/20 00:00 IMPRESSION: Left lower lung opacity, suspicious for pneumonia. Assessment and Plan - Diagnosis (1) Pneumonia Is this a current diagnosis for this admission?: Yes Plan: With increased shortness of breath, cough, full body aches. ABG: Hypoxia/Hypercapnic. CXR: Left lower lung opacity, this is new compared to chest x-ray on 04/03/2020. We will obtain Covid labs including LDH, CRP, ESR, D-dimer. Will obtain rapid Covid. Lactic acid ordered given tachypnea, and tachycardia. Initiate CAP therapy: Cefepime. Patient has been on vent therapy since 03/26, last scheduled day today. Will extend vancomycin therapy, to continue full coverage. (2) Coagulase negative Staphylococcus bacteremia Is this a current diagnosis for this admission?: Yes Plan: Continue vanc. Blood cultures WGTD. EOT 04/07/2020 3 out of 4 BCx bottles have come back with Methicillin resistant coagulase- negative staph suggestive of true bacteremia. Infection presented despite vancomycin since 03/26. Switched to daptomycin 03/31, discontinued 04/01 as per ID recommendations. ID consulted, note reviewed case discussed recommendations as follows: - "Blood culture positive for Enterococcus faecalis, source could be the foot vs aspiration as well." - "Vancomycin is adequate in the setting of penicillin allergy." - "Recommend to switch back to vancomycin to treat for 14 days for bacteremia." Vancomycin restarted 03/31, dosing as per pharmacist. - EOT for bacteremia will be 04/07/20 - Daily BMP (3) Enterococcal bacteremia Is this a current diagnosis for this admission?: Yes Plan: Continue Vanco as above. Has been on vancomycin since 03/26/2020. - Blood cultures 03/28 clearance of Enterococcus. - BC 03/30 WGTD. - Changed to daptomycin 03/30. Id consulted as above. - Vancomycin restarted 03/31, dosing as per pharmacist. - EOT for bacteremia will be 04/07/20 (4) COPD (chronic obstructive pulmonary disease) Qualifiers: COPD type: COPD with acute exacerbation Qualified Code(s): J44.1 - Chronic obstructive pulmonary disease with (acute) exacerbation Is this a current diagnosis for this admission?: Yes Plan: Prednisone x5 days completed. CXR today: hyperinflated lungs with obstructive lung disease, without changes form previous. Continue breathing treatments as needed. (5) Alcohol withdrawal Qualifiers: Complication of substance-induced condition: with unspecified complication Qualified Code(s): F10.239 - Alcohol dependence with withdrawal, unspecified Is this a current diagnosis for this admission?: Yes Plan: Patient without hallucinations today. Continue medications as per psychs recommendations: - Continue respiradone - Continue Ativan IV q 6hr - Continue Buspar 5mg BID - Continue Depakote ER 250mg BID Ativan seems to be most beneficial to the patient. (6) Alcoholic encephalopathy Is this a current diagnosis for this admission?: Yes Plan: Patient at her baseline now. Continue thiamine and folate supplementation. (7) CHF (congestive heart failure) Qualifiers: Heart failure type: unspecified Heart failure chronicity: unspecified Qualified Code(s): I50.9 - Heart failure, unspecified Is this a current diagnosis for this admission?: Yes Plan: Without PND or orthopnea. - Continue home dose po lasix. -Continue current dose of Cardizem. Echo (03/25): LV EF 55% with mild concentric LVH. Grade 1/4 diastolic dysfunction. RA mild to moderately dilated. RV mild to moderately dilated. Mild mitral regurgitation, RVSP 50-55mmHg. (8) Pulmonary hypertension Is this a current diagnosis for this admission?: Yes (9) Septic shock Is this a current diagnosis for this admission?: Yes Plan: Resolved. (10) Lung cancer Qualifiers: Laterality: left Lung location: overlapping sites Qualified Code(s): C34.82 - Malignant neoplasm of overlapping sites of left bronchus and lung Is this a current diagnosis for this admission?: Yes Plan: Outpt f/u with Dr. Robertson (11) Diarrhea Qualifiers: Diarrhea type: unspecified type Qualified Code(s): R19.7 - Diarrhea, unspecified Is this a current diagnosis for this admission?: Yes Plan: Resolved without intervention. (12) Pressure ulcer of dorsum of right foot Is this a current diagnosis for this admission?: Yes Plan: Wound care on board, dressing changes as per their recommendations. (13) Tobacco abuse Is this a current diagnosis for this admission?: Yes Plan: Nicotine patch. (14) Lactic acid acidosis Is this a current diagnosis for this admission?: Yes Plan: Resolved. (15) Hypomagnesemia Is this a current diagnosis for this admission?: Yes Plan: Resolved. - Time Time Spent with patient: 25-34 minutes Smoking Cessation Education: 3 to 10 minutes Medications reviewed and adjusted accordingly: Yes Anticipated Discharge Disposition: Home, Self Care Anticipated Discharge Timeframe: tbd
[2020-04-07] MEDS ORDERED: CEFEPIME 2 GM/D5W RTU 2 GM/50 ML RTUPB IV SCH (14:00)
[2020-04-07] MEDS: DEXAMETHASONE SOD PHOS INJ 10 MG/1 ML VIAL IV SCH (15:07)
[2020-04-07] MEDS: ASCORBIC ACID 500 MG TABLET PO SCH (17:00)
[2020-04-07] MEDS ORDERED: NORMAL SALINE 1000 ML 1,000 ML IV PRN (18:24)
[2020-04-07 20:01] LABS: VANCOMYCIN,TROUGH 11.8 ug/mL (5.0-20.0)
[2020-04-07] MEDS: ENOXAPARIN SODIUM INJ 80 MG/0.8 ML DISP.SYRIN SUBCUT SCH (21:44)
[2020-04-08] MEDS: TRAMADOL HCL 50 MG TABLET PO PRN (00:14)
[2020-04-08] MEDS: LORAZEPAM INJ 2 MG/1 ML VIAL IV PRN (00:15)
[2020-04-08] MEDS: IPRATROPIUM/ALBUTEROL 0.5-2.5 MG/3 ML AMPUL NEB SCH ×4 (02:30→21:17)
[2020-04-08 06:10] LABS: HEMATOCRIT 28.1 % (36.0-47.0); HEMOGLOBIN 9.4 g/dL (12.0-15.5); MEAN CORPUSCULAR HEMOGLOBIN 31.5 pg (27.0-33.4); MEAN CORPUSCULAR HGB CONC 33.3 g/dL (32.0-36.0); MEAN CORPUSCULAR VOLUME 94 fl (80-97); PLATELET COUNT 193 10^3/uL (150-450); RED BLOOD COUNT 2.98 10^6/uL (3.72-5.28); RED CELL DISTRIBUTION WIDTH 16.9 % (11.5-14.0); WHITE BLOOD COUNT 10.7 10^3/uL (4.0-10.5)
[2020-04-08] MEDS: VANCOMYCIN HCL 1,000 MG in DEXTROSE 5%-WATER 250 ML IV SCH (06:34)
[2020-04-08] MEDS: CEFEPIME HCL 2 GM in DEXTROSE 5%-WATER 50 ML IV SCH (06:35)
[2020-04-08 06:37] LABS: ALBUMIN 2.6 g/dL (3.5-5.0); ALKALINE PHOSPHATASE 141 U/L (38-126); ASPARTATE AMINO TRANSFERASE 27 U/L (14-36); BILIRUBIN,DIRECT 0.2 mg/dL (0.0-0.4); BILIRUBIN,TOTAL 0.3 mg/dL (0.2-1.3); BLOOD UREA NITROGEN 12 mg/dL (7-20); CALCIUM 8.9 mg/dL (8.4-10.2); CARBON DIOXIDE 36 mmol/L (22-30); CHLORIDE 90 mmol/L (98-107); GLUCOSE 122 mg/dL (75-110); POTASSIUM 4.2 mmol/L (3.6-5.0); TOTAL PROTEIN 6.1 g/dL (6.3-8.2)
[2020-04-08 06:45] LABS: ANION GAP 3 (5-19)
[2020-04-08] MEDS: PANTOPRAZOLE SODIUM 40 MG TABLET.DR PO SCH ×2 (08:14→15:42)
[2020-04-08] MEDS ORDERED: NORMAL SALINE 1000 ML 1,000 ML IV PRN (08:23)
[2020-04-08] MEDS: RISPERIDONE 0.5 MG TAB.RAPDIS PO SCH ×2 (09:56→18:22)
[2020-04-08] MEDS: IVERMECTIN 3 MG TABLET PO SCH (09:56)
[2020-04-08] MEDS: CHOLECALCIFEROL (D3) 1,000 UNIT (25 MCG) TABLET PO SCH (09:56)
[2020-04-08] MEDS: DILTIAZEM HCL 240 MG CAPSULE.CR PO SCH (09:57)
[2020-04-08] MEDS: MIDODRINE HCL 5 MG TABLET PO SCH ×3 (09:57→18:22)
[2020-04-08] MEDS: ASCORBIC ACID 500 MG TABLET PO SCH ×2 (09:57→18:22)
[2020-04-08] MEDS: MULTIVITAMIN TABLET PO SCH (09:57)
[2020-04-08] MEDS: BUSPIRONE HCL 10 MG TABLET PO SCH ×2 (09:57→21:58)
[2020-04-08] MEDS: THIAMINE HCL 100 MG TABLET PO SCH (09:57)
[2020-04-08] MEDS: FOLIC ACID 1 MG TABLET PO SCH (09:57)
[2020-04-08] MEDS: ZINC SULFATE 220 MG CAPSULE PO SCH (09:58)
[2020-04-08] MEDS: BUPRENORPHINE HCL 2 MG SUBLINGUAL TABLET SL SCH ×2 (09:58→21:58)
[2020-04-08] MEDS: DEXAMETHASONE SOD PHOS INJ 10 MG/1 ML VIAL IV SCH (09:58)
[2020-04-08] MEDS: POTASSIUM CHLORIDE 10 MEQ TABLET.ER PO SCH (09:58)
[2020-04-08] MEDS: COLLAGENASE CLOSTRIDIUM HIST. OINT 30 GM TOP SCH (09:59)
[2020-04-08] MEDS: ENOXAPARIN SODIUM INJ 80 MG/0.8 ML DISP.SYRIN SUBCUT SCH ×2 (09:59→21:57)
[2020-04-08] MEDS: FLUTICASONE/VILANTEROL 200-25 MCG/DOSE IH SCH (09:59)
[2020-04-08] MEDS: DIVALPROEX SODIUM 250 MG TAB.SR.24H PO SCH ×2 (10:02→18:22)
--- NOTE | 2020-04-08 14:36 | PDOC PROGRESS REPORT ---
Subjective Date:: 04/08/20 Subjective:: Patient is a 59-year-old -[place] female presented to [facility] emergency department via EMS on 03/24/2020 with altered mental status. Briefly, patient was admitted to the ICU for altered mental status, hypotension, and bradycardia. Required short dopamine drip with improvement of her bradycardia and hypotension. She experienced DT secondary to alcoholic w ithdrawal in ICU. Transferred out of ICU 03/27. On antibiotics for Enterococcus bacteremia. Patient was seen on morning rounds; she was sitting up to the edge of the bed, eating her lunch. She was breathing comfortably on supplemental oxygen via nasal cannula at 6 L/min. She was not tachypneic and speaking in full sentences. She states that her respiratory status is at her baseline. She does not understand why she is still in the hospital and would like to be discharged home. We reviewed her new COVID-19 diagnosis and recommendations to slowly wean her back to her baseline oxygen as tolerated prior to discharge to ensure safety. Otherwise, she is informed that she is completed her full course of antibiotic therapy and that her underlying CHF and COPD appear to be stable. She denies fever, chills, chest pain, palpitations, abdominal pain, nausea, vomiting, diarrhea. She does have her normal, chronic, cough and requests cough syrup. She has no other questions or concerns at this time. No concerns per nursing. The patient's was seen, incidentally, in the lobby this afternoon when passing through. He had come to drop her off some belongings. He was provided an update on her condition and advised of his need to self quarantine at home due to his recent visitation with her on Monday for an additional 4 days and is encouraged to seek medical attention should he develop symptoms. Reason For Visit: SHOCK ABTUNDED HENRY ACUTE KIDNEY INJURY Physical Exam Vital Signs: Temp Pulse Resp BP Pulse Ox 97.4 F 80 15 100/63 92 04/08/20 03:57 04/08/20 14:06 04/08/20 14:06 04/08/20 09:23 04/08/20 07:49 Intake & Output 04/07/20 04/08/20 04/09/20 06:59 06:59 06:59 Intake Total 740 1000 Balance 740 1000 Weight 73.5 kg 73.3 kg General appearance: PRESENT: no acute distress, cooperative, well-developed, well-nourished Head exam: PRESENT: atraumatic, normocephalic Eye exam: PRESENT: conjunctiva pink, EOMI, PERRLA. ABSENT: scleral icterus Mouth exam: PRESENT: moist, tongue midline Teeth exam: PRESENT: poor dentation Respiratory exam: PRESENT: rhonchi - Throughout, symmetrical, unlabored, other - Supplemental oxygen by nasal cannula. ABSENT: rales, wheezes Cardiovascular exam: PRESENT: RRR. ABSENT: diastolic murmur, rubs, systolic murmur Pulses: PRESENT: normal dorsalis pedis pul Vascular exam: PRESENT: normal capillary refill Extremities exam: PRESENT: full ROM - With front wheel walker. ABSENT: calf tenderness, clubbing, pedal edema Neurological exam: PRESENT: alert, awake, oriented to person, oriented to place, oriented to time, oriented to situation, CN II-XII grossly intact. ABSENT: motor sensory deficit Psychiatric exam: PRESENT: appropriate affect, normal mood. ABSENT: homicidal ideation, suicidal ideation Skin exam: PRESENT: dry, intact, warm. ABSENT: cyanosis, rash Results Laboratory Results: 04/08/20 05:09 04/08/20 05:09 04/07/20 04/08/20 04/08/20 19:36 05:09 05:09 WBC 10.7 H RBC 2.98 L Hgb 9.4 L Hct 28.1 L MCV 94 MCH 31.5 MCHC 33.3 RDW 16.9 H Plt Count 193 Sodium 129.4 L Potassium 4.2 Chloride 90 L Carbon Dioxide 36 H Anion Gap 3 L BUN 12 Creatinine 0.39 L 0.34 L Est GFR ( Amer) > 60 > 60 Glucose 122 H Calcium 8.9 Total Bilirubin 0.3 AST 27 Alkaline Phosphatase 141 H Total Protein 6.1 L Albumin 2.6 L 04/03/20 09:45 Blood Blood Culture - Final NO GROWTH IN 5 DAYS 04/03/20 10:15 Blood Blood Culture - Final NO GROWTH IN 5 DAYS 03/24/20 03/24/20 03/25/20 20:10 20:10 02:47 Creatine Kinase 32 Troponin I 0.097 0.114 NT-Pro-B Natriuret Pep 2480 H 03/25/20 03/25/20 03/25/20 02:47 08:06 14:42 Creatine Kinase Troponin I 0.134 0.166 NT-Pro-B Natriuret Pep 2080 H 03/26/20 03/27/20 04:11 04:10 Creatine Kinase Troponin I NT-Pro-B Natriuret Pep 3290 H 6880 H Impressions: Head CT 03/24/20 20:09 IMPRESSION: 1. No acute intracranial abnormalities. Nonspecific, mild white matter change most likely small vessel ischemic disease, age indeterminate. 2. CT is insensitive for early evaluation of acute stroke. If there is clinical concern for acute ischemia, an MRI may be considered. 3. Suspected acute on chronic sinus disease. Chest X-Ray 04/07/20 00:00 IMPRESSION: Left lower lung opacity, suspicious for pneumonia. Assessment and Plan - Diagnosis (1) COVID-19 Is this a current diagnosis for this admission?: Yes Plan: COVID positive. D-dimer is 2.62 CRP 197.5, LDH 1.82. Continue full dose Lovenox r/t d-dimer results. Patient was previously on chronic anticioagulation but this was discontinued r/t alcohol abuse/falls. Patient likely most safe to d/c on full dose ASA x1 month. Provide supplemental oxygen as needed maintain saturations greater than 89%. As needed nebulizer treatments. Ivermectin 12 mg x2 doses Dexamethasone Zinc, vitamin D, vitamin C, and melatonin supplementation. Encourage pulmonary toilet. Isolation precautions. (2) Pneumonia Is this a current diagnosis for this admission?: Yes Plan: COVID positive. D/C IV antibiotics. Management as above. (3) Enterococcal bacteremia Is this a current diagnosis for this admission?: Yes Plan: Completed course of IV Vancomycin. Has been on vancomycin since 03/26/2020. - Blood cultures 03/28 clearance of Enterococcus. - BC 03/30 WGTD. - Changed to daptomycin 03/30. Id consulted as above. - Vancomycin restarted 03/31, dosing as per pharmacist. - EOT for bacteremia will be 04/07/20 (4) Coagulase negative Staphylococcus bacteremia Is this a current diagnosis for this admission?: Yes Plan: Completed course of IV vancomycin. 3 out of 4 BCx bottles have come back with Methicillin resistant coagulase- negative staph suggestive of true bacteremia. Infection presented despite vancomycin since 03/26. Switched to daptomycin 03/31, discontinued 04/01 as per ID recommendations. ID consulted, note reviewed case discussed recommendations as follows: - "Blood culture positive for Enterococcus faecalis, source could be the foot vs aspiration as well." - "Vancomycin is adequate in the setting of penicillin allergy." - "Recommend to switch back to vancomycin to treat for 14 days for bacteremia." Vancomycin restarted 03/31, dosing as per pharmacist. - EOT for bacteremia will be 04/07/20 (5) Alcohol withdrawal Qualifiers: Complication of substance-induced condition: with unspecified complication Qualified Code(s): F10.239 - Alcohol dependence with withdrawal, unspecified Is this a current diagnosis for this admission?: Yes Plan: Resolved. Continue medications as per psychs recommendations: - Continue respiradone - Continue Buspar 5mg BID - Continue Depakote ER 250mg BID (6) Alcoholic encephalopathy Is this a current diagnosis for this admission?: Yes Plan: Patient at her baseline now. Continue thiamine and folate supplementation. (7) CHF (congestive heart failure) Qualifiers: Heart failure type: unspecified Heart failure chronicity: unspecified Qu alified Code(s): I50.9 - Heart failure, unspecified Is this a current diagnosis for this admission?: Yes Plan: Without PND or orthopnea. - Continue home dose po lasix. - Continue current dose of Cardizem. Echo (03/25): LV EF 55% with mild concentric LVH. Grade 1/4 diastolic dysfunction. RA mild to moderately dilated. RV mild to moderately dilated. Mild mitral regurgitation, RVSP 50-55mmHg. (8) COPD (chronic obstructive pulmonary disease) Qualifiers: COPD type: COPD with acute exacerbation Qualified Code(s): J44.1 - Chronic obstructive pulmonary disease with (acute) exacerbation Is this a current diagnosis for this admission?: Yes Plan: Prednisone x5 days completed. CXR; hyperinflated lungs with obstructive lung disease, without changes form previous. Continue breathing treatments as needed. Continue supplemental oxygen as needed to maintain saturations 89 to 92% (9) Lung cancer Qualifiers: Laterality: left Lung location: overlapping sites Qualified Code(s): C34.82 - Malignant neoplasm of overlapping sites of left bronchus and lung Is this a current diagnosis for this admission?: Yes Plan: Outpt f/u with Dr. Robertson (10) Pressure ulcer of dorsum of right foot Is this a current diagnosis for this admission?: Yes Plan: Wound care on board, dressing changes as per their recommendations. (11) Pulmonary hypertension Is this a current diagnosis for this admission?: Yes (12) Septic shock Is this a current diagnosis for this admission?: Yes Plan: Resolved. (13) Tobacco abuse Is this a current diagnosis for this admission?: Yes Plan: Nicotine patch. (14) Lactic acid acidosis Is this a current diagnosis for this admission?: Yes Plan: Resolved. (15) Hypomagnesemia Is this a current diagnosis for this admission?: Yes Plan: Resolved. (16) Diarrhea Qualifiers: Diarrhea type: unspecified type Qualified Code(s): R19.7 - Diarrhea, unspecified Is this a current diagnosis for this admission?: Yes Plan: Resolved without intervention. - Time Time Spent with patient: 25-34 minutes Medications reviewed and adjusted accordingly: Yes Anticipated Discharge Disposition: Home, Self Care Anticipated Discharge Timeframe: TBD
--- NOTE | 2020-04-08 19:52 | Progress Note ---
Provider Note Provider Note: CARDIOLOGY PROGRESS NOTE by Dr. Cassandra Davis on 04/08/2020. SUBJECTIVE: The patient is Covid rapid testing came back positive on the . I have not seen her on the . She was transferred to the Covid unit. The patient is not confused anymore. She has no visual or auditory hallucinations. Her cough is improved and her breathing is better. She denies any PND orthopnea or leg edema. There is no palpitations near syncope or syncope. There is no leg edema. PHYSICAL EXAMINATION: The patient is a frail build and appears to be chronically ill. In no major distress. Selected Entries 04/08/20 04/08/20 08:00 11:33 Temperature 97.2 F Temperature Oral Source Pulse Rate 75 Respiratory 22 H Rate Blood Pressure 100/66 Blood Pressure 77 Mean BP Location Right Arm BP Position Sitting Oxygen Flow 7.00 Rate Oxygen Delivery Nasal Cannula Method O2 Sat by Pulse 94 Oximetry by Telemetry HEAD: Is atraumatic normocephalic. EYES: Pupils equal round regular reactive to light accommodation. Extraocular movements are normal. There is no conjunctival pallor. There is no scleral icterus. EARS: Tympanic membranes are intact. External auditory canals are clear. MOUTH: Mucous membranes of mouth are moist. Tongue is moist. There is no ulcers. THROAT: There is no redness of the oropharynx. There is no exudates. NECK: There is no JVD carotids are equal there is no bruit there is no lymphadenopathy. There is no goiter. LUNGS: There is bilateral scattered rhonchi and bilateral wheezing. No rales of CHF. HEART: S1-S2 is heard there is no S3 gallop there is no S4 gallop. There is systolic murmur left sternal border and the apex there is no rub. ABDOMEN: Soft nontender there is no paraspinal megaly. Bowel sounds are well heard. EXTREMITIES: Femorals are diminished. There is no femoral bruits leg pulses are diminished. There is mild pedal edema bilaterally. There is no DVT or cellulitis. There is no calf tenderness. There is no cyanosis or clubbing. 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 PSYCHIATRIC: The patient is not delirious but does not appear to be agitated. Labs- All tests 24 hr 04/08/20 04/08/20 05:09 05:09 WBC 10.7 H RBC 2.98 L Hgb 9.4 L Hct 28.1 L MCV 94 MCH 31.5 MCHC 33.3 RDW 16.9 H Plt Count 193 Sodium 129.4 L Potassium 4.2 Chloride 90 L Carbon Dioxide 36 H Anion Gap 3 L BUN 12 Creatinine 0.34 L Est GFR ( Amer) > 60 Est GFR (MDRD) Non-Af > 60 Glucose 122 H Calcium 8.9 Total Bilirubin 0.3 Direct Bilirubin 0.2 Neonat Total Bilirubin Not Reportable Neonat Direct Bilirubin Not Reportable Neonat Indirect Bili Not Reportable AST 27 ALT 11 Alkaline Phosphatase 141 H Total Protein 6.1 L Albumin 2.6 L Chest X-Ray 03/24/20 20:08 IMPRESSION: Improved aeration of the right lung base. Overall, the lungs appear clear. Stable cardiomegaly. Head CT 03/24/20 20:09 IMPRESSION: 1. No acute intracranial abnormalities. Nonspecific, mild white matter change most likely small vessel ischemic disease, age indeterminate. 2. CT is insensitive for early evaluation of acute stroke. If there is clinical concern for acute ischemia, an MRI may be considered. 3. Suspected acute on chronic sinus disease. Chest X-Ray 03/26/20 05:00 IMPRESSION: Increasing atelectasis or infiltrate right lower lobe. Chest X-Ray 04/03/20 00:00 IMPRESSION: No significant interval change. Hyperinflated lungs which can be seen with obstructive lung disease. No acute cardiopulmonary disease. Chest X-Ray 04/07/20 00:00 IMPRESSION: Left lower lung opacity, suspicious for pneumonia. IMPRESSION/RECOMMENDATION: 1. Covid.19 related pneumonia. Continue antibiotics.. 2. Acute exacerbation of COPD. There has been recurrence recurrence. Continue anti-COPD medication and antibiotics. At present seems that the COPD acute exacerbation is improving.. 3. SEPSIS: Positive blood cultures for Enterococcus faecalis. ID consult via Internet. Their recommendations have been noted. 4. 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 The patient appears not to be confused confused today and she is not having any hallucinations today. 5. Acute on chronic) systolic heart failure [acute on chronic cor pulmonale]. Continue diuretics continue current medication. At present seems to be compensated. 6. Pulmonary hypertension: Agree with starting the patient oncalcium channel blockers. 7. History of hypertension: Of late the patient has chronic hypotension requiring midodrine to keep her blood pressure well controlled. 8. History of chronic alcohol abuse. Patient counseled to refrain from alcohol. 9. Acute renal failure on admission. Renal function now improved GFR is greater than 60. 10. Sinus bradycardia on admission most likely this along with hypertension secondary to patient's acute renal insufficiency due to possibly dehydration and right heart failure and hyperkalemia. Note that the hyperkalemia is resolved 11. Cough: This is secondary to acute exacerbation of COPD. Medications reviewed. Medical regimen management plan discussed with attending provider on the case. Medical decision making is of moderate complexity. 40 minutes spent on this patient with 50% of the time spent in direct patient care. Will sign off and follow the patient in the office.
[2020-04-09] MEDS: IPRATROPIUM/ALBUTEROL 0.5-2.5 MG/3 ML AMPUL NEB SCH ×5 (02:16→20:40)
[2020-04-09 04:59] LABS: HEMATOCRIT 28.1 % (36.0-47.0); HEMOGLOBIN 9.4 g/dL (12.0-15.5); MEAN CORPUSCULAR HEMOGLOBIN 31.9 pg (27.0-33.4); MEAN CORPUSCULAR HGB CONC 33.5 g/dL (32.0-36.0); MEAN CORPUSCULAR VOLUME 95 fl (80-97); PLATELET COUNT 196 10^3/uL (150-450); RED BLOOD COUNT 2.95 10^6/uL (3.72-5.28); RED CELL DISTRIBUTION WIDTH 16.8 % (11.5-14.0); WHITE BLOOD COUNT 6.4 10^3/uL (4.0-10.5)
[2020-04-09 05:25] LABS: ALBUMIN 2.8 g/dL (3.5-5.0); ALKALINE PHOSPHATASE 153 U/L (38-126); ANION GAP 5 (5-19); ASPARTATE AMINO TRANSFERASE 29 U/L (14-36); BILIRUBIN,DIRECT 0.3 mg/dL (0.0-0.4); BILIRUBIN,TOTAL 0.4 mg/dL (0.2-1.3); BLOOD UREA NITROGEN 13 mg/dL (7-20); CALCIUM 9.2 mg/dL (8.4-10.2); CARBON DIOXIDE 35 mmol/L (22-30); CHLORIDE 93 mmol/L (98-107); GLUCOSE 127 mg/dL (75-110); POTASSIUM 4.1 mmol/L (3.6-5.0); TOTAL PROTEIN 6.4 g/dL (6.3-8.2)
[2020-04-09] MEDS: BUSPIRONE HCL 10 MG TABLET PO SCH ×2 (09:42→21:22)
[2020-04-09] MEDS: BUPRENORPHINE HCL 2 MG SUBLINGUAL TABLET SL SCH ×2 (09:42→21:22)
[2020-04-09] MEDS: MULTIVITAMIN TABLET PO SCH (09:42)
[2020-04-09] MEDS: ASCORBIC ACID 500 MG TABLET PO SCH ×2 (09:43→17:30)
[2020-04-09] MEDS: DIVALPROEX SODIUM 250 MG TAB.SR.24H PO SCH ×2 (09:43→17:30)
[2020-04-09] MEDS: PANTOPRAZOLE SODIUM 40 MG TABLET.DR PO SCH ×2 (09:43→15:17)
[2020-04-09] MEDS: FOLIC ACID 1 MG TABLET PO SCH (09:44)
[2020-04-09] MEDS: DILTIAZEM HCL 240 MG CAPSULE.CR PO SCH (09:44)
[2020-04-09] MEDS: MIDODRINE HCL 5 MG TABLET PO SCH ×3 (09:45→17:32)
[2020-04-09] MEDS: THIAMINE HCL 100 MG TABLET PO SCH (09:46)
[2020-04-09] MEDS: ZINC SULFATE 220 MG CAPSULE PO SCH (09:46)
[2020-04-09] MEDS: POTASSIUM CHLORIDE 10 MEQ TABLET.ER PO SCH (09:46)
[2020-04-09] MEDS: CHOLECALCIFEROL (D3) 1,000 UNIT (25 MCG) TABLET PO SCH (09:47)
[2020-04-09] MEDS: DEXAMETHASONE SOD PHOS INJ 10 MG/1 ML VIAL IV SCH (09:47)
[2020-04-09] MEDS: RISPERIDONE 0.5 MG TAB.RAPDIS PO SCH ×2 (09:51→17:30)
[2020-04-09] MEDS: IVERMECTIN 3 MG TABLET PO SCH (09:51)
[2020-04-09] MEDS: ENOXAPARIN SODIUM INJ 80 MG/0.8 ML DISP.SYRIN SUBCUT SCH ×2 (09:51→21:23)
[2020-04-09] MEDS: COLLAGENASE CLOSTRIDIUM HIST. OINT 30 GM TOP SCH (09:54)
[2020-04-09] MEDS: FLUTICASONE/VILANTEROL 200-25 MCG/DOSE IH SCH (09:54)
--- NOTE | 2020-04-09 14:03 | PDOC PROGRESS REPORT ---
Subjective Date:: 04/09/20 Subjective:: Patient is a 59-year-old -[place] female presented to [facility] emergency department via EMS on 03/24/2020 with altered mental status. Briefly, patient was admitted to the ICU for altered mental status, hypotension, and bradycardia. Required short dopamine drip with improvement of her bradycardia and hypotension. She experienced DT secondary to alcoholic w ithdrawal in ICU. Transferred out of ICU 03/27. On antibiotics for Enterococcus bacteremia. Patient was seen on morning rounds; she was sitting up to the edge of the bed. She was breathing comfortably on supplemental oxygen via nasal cannula at 4 L/min. She was not tachypneic and speaking in full sentences. She states that her respiratory status is at her baseline; utilizes 3-4lpm at home. She states she is feeling well and wants to go home as soon as possible. She denies fever, chills, chest pain, palpitations, abdominal pain, nausea, vomiting, diarrhea. She does have her normal, chronic, cough. She has no other questions or concerns at this time. No concerns per nursing. Reason For Visit: SHOCK ABTUNDED HENRY ACUTE KIDNEY INJURY Physical Exam Vital Signs: Temp Pulse Resp BP Pulse Ox 97.3 F 73 16 96/53 L 100 04/09/20 10:00 04/09/20 11:28 04/09/20 07:53 04/09/20 11:28 04/09/20 07:53 Intake & Output 04/08/20 04/09/20 04/10/20 06:59 06:59 06:59 Intake Total 1000 1800 Balance 1000 1800 Weight 73.3 kg 73.3 kg General appearance: PRESENT: no acute distress, cooperative, well-developed, well-nourished Head exam: PRESENT: atraumatic, normocephalic Eye exam: PRESENT: conjunctiva pink, EOMI, PERRLA. ABSENT: scleral icterus Mouth exam: PRESENT: moist, tongue midline Respiratory exam: PRESENT: rhonchi - throughout; decreased, symmetrical, unlabored, other - Baseline oxygen requirement. ABSENT: rales, wheezes Cardiovascular exam: PRESENT: RRR. ABSENT: diastolic murmur, rubs, systolic murmur Pulses: PRESENT: normal dorsalis pedis pul Vascular exam: PRESENT: normal capillary refill Extremities exam: PRESENT: full ROM. ABSENT: calf tenderness, clubbing, pedal edema Musculoskeletal exam: PRESENT: ambulatory Neurological exam: PRESENT: alert, awake, oriented to person, oriented to place, oriented to time, oriented to situation, CN II-XII grossly intact. ABSENT: m otor sensory deficit Psychiatric exam: PRESENT: appropriate affect, normal mood. ABSENT: homicidal ideation, suicidal ideation Skin exam: PRESENT: dry, intact, warm. ABSENT: cyanosis, rash Results Laboratory Results: 04/09/20 04:24 04/09/20 04:24 04/09/20 04/09/20 04:24 04:24 WBC 6.4 RBC 2.95 L Hgb 9.4 L Hct 28.1 L MCV 95 MCH 31.9 MCHC 33.5 RDW 16.8 H Plt Count 196 Sodium 133.3 L Potassium 4.1 Chloride 93 L Carbon Dioxide 35 H Anion Gap 5 BUN 13 Creatinine 0.36 L Est GFR ( Amer) > 60 Glucose 127 H Calcium 9.2 Total Bilirubin 0.4 AST 29 Alkaline Phosphatase 153 H Total Protein 6.4 Albumin 2.8 L 04/03/20 09:45 Blood Blood Culture - Final NO GROWTH IN 5 DAYS 04/03/20 10:15 Blood Blood Culture - Final NO GROWTH IN 5 DAYS 03/24/20 03/24/20 03/25/20 20:10 20:10 02:47 Creatine Kinase 32 Troponin I 0.097 0.114 NT-Pro-B Natriuret Pep 2480 H 03/25/20 03/25/20 03/25/20 02:47 08:06 14:42 Creatine Kinase Troponin I 0.134 0.166 NT-Pro-B Natriuret Pep 2080 H 03/26/20 03/27/20 04:11 04:10 Creatine Kinase Troponin I NT-Pro-B Natriuret Pep 3290 H 6880 H Impressions: Head CT 03/24/20 20:09 IMPRESSION: 1. No acute intracranial abnormalities. Nonspecific, mild white matter change most likely small vessel ischemic disease, age indeterminate. 2. CT is insensitive for early evaluation of acute stroke. If there is clinical concern for acute ischemia, an MRI may be considered. 3. Suspected acute on chronic sinus disease. Chest X-Ray 04/07/20 00:00 IMPRESSION: Left lower lung opacity, suspicious for pneumonia. Assessment and Plan - Diagnosis (1) COVID-19 Is this a current diagnosis for this admission?: Yes Plan: Improved; patient states she is feeling well and is maintaining oxygen saturations on her home oxygen requirement. COVID positive. D-dimer is 2.62 CRP 197.5, LDH 1.82. Continue full dose Lovenox r/t d-dimer results. Patient was previously on chronic anticioagulation but this was discontinued r/t alcohol abuse/falls. Patient likely most safe to d/c on full dose ASA x1 month. Provide supplemental oxygen as needed maintain saturations greater than 89%. As needed nebulizer treatments. Ivermectin 12 mg x2 doses Dexamethasone; will plan to discharge on steroid taper. Zinc, vitamin D, vitamin C, and melatonin supplementation. Encourage pulmonary toilet. Isolation precautions. (2) Pneumonia Is this a current diagnosis for this admission?: Yes Plan: COVID positive. D/C IV antibiotics. Management as above. (3) Enterococcal bacteremia Is this a current diagnosis for this admission?: Yes Plan: Completed course of IV Vancomycin. Has been on vancomycin since 03/26/2020. - Blood cultures 03/28 clearance of Enterococcus. - BC 03/30 WGTD. - Changed to daptomycin 03/30. Id consulted as above. - Vancomycin restarted 03/31, dosing as per pharmacist. - EOT for bacteremia will be 04/07/20 (4) Coagulase negative Staphylococcus bacteremia Is this a current diagnosis for this admission?: Yes Plan: Completed course of IV vancomycin. 3 out of 4 BCx bottles have come back with Methicillin resistant coagulase-n egative staph suggestive of true bacteremia. Infection presented despite vancomycin since 03/26. Switched to daptomycin 03/31, discontinued 04/01 as per ID recommendations. ID consulted, note reviewed case discussed recommendations as follows: - "Blood culture positive for Enterococcus faecalis, source could be the foot vs aspiration as well." - "Vancomycin is adequate in the setting of penicillin allergy." - "Recommend to switch back to vancomycin to treat for 14 days for bacteremia." Vancomycin restarted 03/31, dosing as per pharmacist. - EOT for bacteremia will be 04/07/20 (5) Alcohol withdrawal Qualifiers: Complication of substance-induced condition: with unspecified complication Qualified Code(s): F10.239 - Alcohol dependence with withdrawal, unspecified Is this a current diagnosis for this admission?: Yes Plan: Resolved. Continue medications as per psychs recommendations: - Continue respiradone - Continue Buspar 5mg BID - Continue Depakote ER 250mg BID (6) Alcoholic encephalopathy Is this a current diagnosis for this admission?: Yes Plan: Patient at her baseline now. Continue thiamine and folate supplementation. (7) CHF (congestive heart failure) Qualifiers: Heart failure type: unspecified Heart failure chronicity: unspecified Qualified Code(s): I50.9 - Heart failure, unspecified Is this a current diagnosis for this admission?: Yes Plan: Without PND or orthopnea. - Continue home dose po lasix. - Continue current dose of Cardizem. Echo (03/25): LV EF 55% with mild concentric LVH. Grade 1/4 diastolic dysfunction. RA mild to moderately dilated. RV mild to moderately dilated. Mild mitral regurgitation, RVSP 50-55mmHg. (8) COPD (chronic obstructive pulmonary disease) Qualifiers: COPD type: COPD with acute exacerbation Qualified Code(s): J44.1 - Chronic obstructive pulmonary disease with (acute) exacerbation Is this a current diagnosis for this admission?: Yes Plan: Prednisone x5 days completed. CXR; hyperinflated lungs with obstructive lung disease, without changes form previous. Continue breathing treatments as needed. Continue supplemental oxygen as needed to maintain saturations 89 to 92% (9) Lung cancer Qualifiers: Laterality: left Lung location: overlapping sites Qualified Code(s): C34.82 - Malignant neoplasm of overlapping sites of left bronchus and lung Is this a current diagnosis for this admission?: Yes Plan: Outpt f/u with Dr. Robertson (10) Pressure ulcer of dorsum of right foot Is this a current diagnosis for this admission?: Yes Plan: Wound care on board, dressing changes as per their recommendations. (11) Pulmonary hypertension Is this a current diagnosis for this admission?: Yes (12) Septic shock Is this a current diagnosis for this admission?: Yes Plan: Resolved. (13) Tobacco abuse Is this a current diagnosis for this admission?: Yes Plan: Nicotine patch. (14) Lactic acid acidosis Is this a current diagnosis for this admission?: Yes Plan: Resolved. (15) Hypomagnesemia Is this a current diagnosis for this admission?: Yes Plan: Resolved. (16) Diarrhea Qualifiers: Diarrhea type: unspecified type Qualified Code(s): R19.7 - Diarrhea, unspecified Is this a current diagnosis for this admission?: Yes Plan: Resolved without intervention. - Time Time Spent with patient: 25-34 minutes Medications reviewed and adjusted accordingly: Yes Anticipated Discharge Disposition: Home, Self Care Anticipated Discharge Timeframe: within 24 hours
[2020-04-09] MEDS: GUAIFENESIN SYRP 200 MG/10 ML UDC PO PRN (15:17)
[2020-04-09] MEDS: TUSSIONEX PO PRN (21:42)
[2020-04-10] MEDS: ACETAMINOPHEN 325 MG TABLET PO PRN (01:51)
[2020-04-10] MEDS: IPRATROPIUM/ALBUTEROL 0.5-2.5 MG/3 ML AMPUL NEB SCH ×4 (02:26→20:15)
[2020-04-10 05:11] LABS: ALBUMIN 3.5 g/dL (3.5-5.0); ALKALINE PHOSPHATASE 190 U/L (38-126); ANION GAP 11 (5-19); ASPARTATE AMINO TRANSFERASE 33 U/L (14-36); BILIRUBIN,DIRECT 0.3 mg/dL (0.0-0.4); BILIRUBIN,TOTAL 0.4 mg/dL (0.2-1.3); BLOOD UREA NITROGEN 14 mg/dL (7-20); CALCIUM 9.5 mg/dL (8.4-10.2); CARBON DIOXIDE 35 mmol/L (22-30); CHLORIDE 92 mmol/L (98-107); GLUCOSE 122 mg/dL (75-110); TOTAL PROTEIN 7.7 g/dL (6.3-8.2)
[2020-04-10 06:53] LABS: HEMATOCRIT 33.4 % (36.0-47.0); MEAN CORPUSCULAR HEMOGLOBIN 31.7 pg (27.0-33.4); MEAN CORPUSCULAR HGB CONC 33.1 g/dL (32.0-36.0); MEAN CORPUSCULAR VOLUME 96 fl (80-97); PLATELET COUNT 221 10^3/uL (150-450); RED BLOOD COUNT 3.47 10^6/uL (3.72-5.28); RED CELL DISTRIBUTION WIDTH 16.7 % (11.5-14.0); WHITE BLOOD COUNT 6.2 10^3/uL (4.0-10.5)
[2020-04-10 07:43] LABS: APPEARANCE,URINE CLEAR; BILIRUBIN,URINE NEGATIVE (NEGATIVE); COLOR,URINE STRAW; GLUCOSE, URINE NEGATIVE (NEGATIVE); KETONES,URINE NEGATIVE (NEGATIVE); LEUKOCYTE ESTERASE,URINE NEGATIVE (NEGATIVE); NITRITE,URINE NEGATIVE (NEGATIVE); PROTEIN,URINE 30 mg/dL (NEGATIVE); UROBILINOGEN,URINE NEGATIVE mg/dL (<2.0)
[2020-04-10] MEDS: PANTOPRAZOLE SODIUM 40 MG TABLET.DR PO SCH ×2 (08:54→18:05)
[2020-04-10] MEDS: FOLIC ACID 1 MG TABLET PO SCH (09:01)
[2020-04-10] MEDS: MIDODRINE HCL 5 MG TABLET PO SCH ×3 (09:01→18:04)
[2020-04-10] MEDS: CHOLECALCIFEROL (D3) 1,000 UNIT (25 MCG) TABLET PO SCH (09:01)
[2020-04-10] MEDS: THIAMINE HCL 100 MG TABLET PO SCH (09:01)
[2020-04-10] MEDS: BUPRENORPHINE HCL 2 MG SUBLINGUAL TABLET SL SCH ×2 (09:01→21:06)
[2020-04-10] MEDS: ZINC SULFATE 220 MG CAPSULE PO SCH (09:01)
[2020-04-10] MEDS: MULTIVITAMIN TABLET PO SCH (09:01)
[2020-04-10] MEDS: DILTIAZEM HCL 240 MG CAPSULE.CR PO SCH (09:03)
[2020-04-10] MEDS: ASCORBIC ACID 500 MG TABLET PO SCH ×2 (09:03→18:04)
[2020-04-10] MEDS: POTASSIUM CHLORIDE 10 MEQ TABLET.ER PO SCH (09:03)
[2020-04-10] MEDS: BUSPIRONE HCL 10 MG TABLET PO SCH ×2 (09:03→21:07)
[2020-04-10] MEDS: DEXAMETHASONE SOD PHOS INJ 10 MG/1 ML VIAL IV SCH (09:04)
[2020-04-10] MEDS: DIVALPROEX SODIUM 250 MG TAB.SR.24H PO SCH ×2 (09:04→18:06)
[2020-04-10] MEDS: RISPERIDONE 0.5 MG TAB.RAPDIS PO SCH ×2 (09:04→18:05)
[2020-04-10] MEDS: ENOXAPARIN SODIUM INJ 80 MG/0.8 ML DISP.SYRIN SUBCUT SCH ×2 (09:05→21:07)
[2020-04-10] MEDS: FLUTICASONE/VILANTEROL 200-25 MCG/DOSE IH SCH (09:24)
[2020-04-10] MEDS: COLLAGENASE CLOSTRIDIUM HIST. OINT 30 GM TOP SCH (09:25)
[2020-04-10] MEDS ORDERED: METOPROLOL TARTRATE PF/INJ 5 MG/5 ML SDV IV ONE ×2 (09:49→10:15)
[2020-04-10] MEDS: TUSSIONEX PO PRN (09:58)
[2020-04-10] MEDS ORDERED: METOPROLOL SUCCINATE 50 MG TAB.SR.24H PO ONE (12:30)
[2020-04-10] MEDS: TRAMADOL HCL 50 MG TABLET PO PRN (12:31)
[2020-04-10] MEDS: HYDROXYZINE PAMOATE 50 MG CAPSULE PO SCH ×3 (12:31→18:04)
--- NOTE | 2020-04-10 14:24 | PDOC PROGRESS REPORT ---
Subjective Date:: 04/10/20 Subjective:: Patient is a 59-year-old -[place] female presented to [facility] emergency department via EMS on 03/24/2020 with altered mental status. Briefly, patient was admitted to the ICU for altered mental status, hypotension, and bradycardia. Required short dopamine drip with improvement of her bradycardia and hypotension. She experienced DT secondary to alcoholic w ithdrawal in ICU. Transferred out of ICU 03/27. On antibiotics for Enterococcus bacteremia. Patient was seen on morning rounds; she was sitting up to the edge of the bed. She was breathing comfortably on supplemental oxygen via nasal cannula at 5 L/min. She was not tachypneic and speaking in full sentences, however, SpO2 78- 84% confirmed w/ second pulse ox and good pleth on both. She was placed on oxymizer at 12lpm with improvement to 91%. She utilizes 3-4lpm at home. She states she is feeling well and wants to go home; states that I am lying to her about her oxygen to keep her in the hospital. Became somewhat confused/agitated when I discussed that she needed more oxygen than normaly (did not understand that oximyzer is a separate device than NC). She denies fever, chills, chest pain, palpitations, abdominal pain, nausea, vomiting, diarrhea. She has no other questions or concerns at this time. Reason For Visit: SHOCK ABTUNDED HENRY ACUTE KIDNEY INJURY Physical Exam Vital Signs: Temp Pulse Resp BP Pulse Ox 97.4 F 95 21 H 112/71 92 04/10/20 11:26 04/10/20 12:45 04/10/20 11:26 04/10/20 12:45 04/10/20 11:26 Intake & Output 04/09/20 04/10/20 04/11/20 06:59 06:59 06:59 Intake Total 1800 1180 Output Total 800 Balance 1800 380 Weight 73.3 kg 73.3 kg General appearance: PRESENT: no acute distress, well-developed, well-nourished - Overweight Head exam: PRESENT: atraumatic, normocephalic Eye exam: PRESENT: conjunctiva pink, EOMI, PERRLA. ABSENT: scleral icterus Mouth exam: PRESENT: moist, tongue midline Teeth exam: PRESENT: poor dentation Respiratory exam: PRESENT: rhonchi - slight rhonchi bilaterally; improved, symmetrical, tachypnea, other - Oxymizer. ABSENT: rales, wheezes Cardiovascular exam: PRESENT: irregular rhythm, tachycardia. ABSENT: diastolic murmur, rubs, systolic murmur Pulses: PRESENT: normal dorsalis pedis pul Vascular exam: PRESENT: normal capillary refill Extremities exam: PRESENT: full ROM. ABSENT: calf tenderness, clubbing, pedal edema Neurological exam: PRESENT: alert, awake, oriented to person, oriented to place, oriented to time, oriented to situation, CN II-XII grossly intact. ABSENT: motor sensory deficit Psychiatric exam: PRESENT: appropriate affect, normal mood. ABSENT: homicidal ideation, suicidal ideation Skin exam: PRESENT: dry, intact, warm. ABSENT: cyanosis, rash Results Laboratory Results: 04/10/20 06:18 04/10/20 04:26 04/10/20 04/10/20 04/10/20 04:26 04:26 04:50 WBC Cancelled RBC Cancelled Hgb Cancelled Hct Cancelled MCV Cancelled MCH Cancelled MCHC Cancelled RDW Cancelled Plt Count Cancelled Sodium 137.7 Potassium 4.0 Chloride 92 L Carbon Dioxide 35 H Anion Gap 11 BUN 14 Creatinine 0.43 L Est GFR ( Amer) > 60 Glucose 122 H Calcium 9.5 Total Bilirubin 0.4 AST 33 Alkaline Phosphatase 190 H Total Protein 7.7 Albumin 3.5 Urine Color STRAW Urine Appearance CLEAR Urine pH 7.0 Ur Specific [place] 1.010 Urine Protein 30 H Urine Glucose (UA) NEGATIVE Urine Ketones NEGATIVE Urine Blood NEGATIVE Urine Nitrite NEGATIVE Ur Leukocyte Esterase NEGATIVE Urine WBC (Auto) 0 04/10/20 06:18 WBC 6.2 RBC 3.47 L Hgb 11.0 L Hct 33.4 L MCV 96 MCH 31.7 MCHC 33.1 RDW 16.7 H Plt Count 221 Sodium Potassium Chloride Carbon Dioxide Anion Gap BUN Creatinine Est GFR ( Amer) Glucose Calcium Total Bilirubin AST Alkaline Phosphatase Total Protein Albumin Urine Color Urine Appearance Urine pH Ur Specific [place] Urine Protein Urine Glucose (UA) Urine Ketones Urine Blood Urine Nitrite Ur Leukocyte Esterase Urine WBC (Auto) 03/24/20 03/24/20 03/25/20 20:10 20:10 02:47 Creatine Kinase 32 Troponin I 0.097 0.114 NT-Pro-B Natriuret Pep 2480 H 03/25/20 03/25/2003/25/20 02:47 08:06 14:42 Creatine Kinase Troponin I 0.134 0.166 NT-Pro-B Natriuret Pep 2080 H 03/26/20 03/27/20 04:11 04:10 Creatine Kinase Troponin I NT-Pro-B Natriuret Pep 3290 H 6880 H Impressions: Head CT 03/24/20 20:09 IMPRESSION: 1. No acute intracranial abnormalities. Nonspecific, mild white matter change most likely small vessel ischemic disease, age indeterminate. 2. CT is insensitive for early evaluation of acute stroke. If there is clinical concern for acute ischemia, an MRI may be considered. 3. Suspected acute on chronic sinus disease. Chest X-Ray 04/07/20 00:00 IMPRESSION: Left lower lung opacity, suspicious for pneumonia. Assessment and Plan - Diagnosis (1) COVID-19 Is this a current diagnosis for this admission?: Yes Plan: Now requiring Oxymizer to maintain saturations.. COVID positive. D-dimer is 2.62 CRP 197.5, LDH 1.82. Continue full dose Lovenox r/t d-dimer results. Patient was previously on chronic anticioagulation but this was discontinued r/t alcohol abuse/falls. Provide supplemental oxygen as needed maintain saturations greater than 89%. As needed nebulizer treatments. Ivermectin 12 mg x2 doses Continue dexamethasone. Zinc, vitamin D, vitamin C, and melatonin supplementation. Encourage pulmonary toilet. Isolation precautions. (2) Pneumonia Is this a current diagnosis for this admission?: Yes Plan: COVID positive. D/C IV antibiotics. Management as above. (3) Enterococcal bacteremia Is this a current diagnosis for this admission?: Yes (4) Coagulase negative Staphylococcus bacteremia Is this a current diagnosis for this admission?: Yes Plan: Completed course of IV vancomycin. 3 out of 4 BCx bottles have come back with Methicillin resistant coagulase- negative staph suggestive of true bacteremia. Infection presented despite vancomycin since 03/26. Switched to daptomycin 03/31, discontinued 04/01 as per ID recommendations. ID consulted, note reviewed case discussed recommendations as follows: - "Blood culture positive for Enterococcus faecalis, source could be the foot vs aspiration as well." - "Vancomycin is adequate in the setting of penicillin allergy." - "Recommend to switch back to vancomycin to treat for 14 days for bact eremia." Vancomycin restarted 03/31, dosing as per pharmacist. - EOT for bacteremia will be 04/07/20 (5) Alcohol withdrawal Qualifiers: Complication of substance-induced condition: with unspecified complication Qualified Code(s): F10.239 - Alcohol dependence with withdrawal, unspecified Is this a current diagnosis for this admission?: Yes Plan: Resolved. Continue medications as per psychs recommendations: - Continue respiradone - Continue Buspar 5mg BID - Continue Depakote ER 250mg BID (6) Alcoholic encephalopathy Is this a current diagnosis for this admission?: Yes Plan: Patient at her baseline now. Continue thiamine and folate supplementation. (7) CHF (congestive heart failure) Qualifiers: Heart failure type: unspecified Heart failure chronicity: unspecified Qualified Code(s): I50.9 - Heart failure, unspecified Is this a current diagnosis for this admission?: Yes Plan: Without PND or orthopnea. - Continue home dose po lasix. - Continue current dose of Cardizem. Echo (03/25): LV EF 55% with mild concentric LVH. Grade 1/4 diastolic dysfunction. RA mild to moderately dilated. RV mild to moderately dilated. Mild mitral regurgitation, RVSP 50-55mmHg. (8) COPD (chronic obstructive pulmonary disease) Qualifiers: COPD type: COPD with acute exacerbation Qualified Code(s): J44.1 - Chronic obstructive pulmonary disease with (acute) exacerbation Is this a current diagnosis for this admission?: Yes Plan: Prednisone x5 days completed. CXR; hyperinflated lungs with obstructive lung disease, without changes form previous. Continue breathing treatments as needed. Continue supplemental oxygen as needed to maintain saturations 89 to 92% (9) Lung cancer Qualifiers: Laterality: left Lung location: overlapping sites Qualified Code(s): C34.82 - Malignant neoplasm of overlapping sites of left bronchus and lung Is this a current diagnosis for this admission?: Yes Plan: Outpt f/u with Dr. Robertson (10) Pressure ulcer of dorsum of right foot Is this a current diagnosis for this admission?: Yes Plan: Wound care on board, dressing changes as per their recommendations. (11) Pulmonary hypertension Is this a current diagnosis for this admission?: Yes (12) Septic shock Is this a current diagnosis for this admission?: Yes Plan: Resolved. (13) Tobacco abuse Is this a current diagnosis for this admission?: Yes Plan: Nicotine patch. (14) Lactic acid acidosis Is this a current diagnosis for this admission?: Yes Plan: Resolved. (15) Hypomagnesemia Is this a current diagnosis for this admission?: Yes Plan: Resolved. (16) Diarrhea Qualifiers: Diarrhea type: unspecified type Qualified Code(s): R19.7 - Diarrhea, unspecified Is this a current diagnosis for this admission?: Yes Plan: Resolved without intervention. (17) Tachycardia Is this a current diagnosis for this admission?: Yes Plan: Patient briefly with a heart rate of 150. This rapidly resolved after IV Lopressor. Patient was previously on Toprol-XL. Provided Toprol-XL 50 mg dose now followed by 25 mg twice daily beginning this evening. Continue diltiazem CD 240 mg daily. (18) Acute on chronic respiratory failure with hypoxia Is this a current diagnosis for this admission?: Yes Plan: Secondary to COPD, lung cancer, and CHF now complicated by COVID-19 pneumonia. Patient had been weaned to her baseline oxygen of 4 L/min via nasal cannula and were preparing for possible discharge home today. Unfortunately, she became hypoxic with an SPO2 in the low 70s. She was placed on max Oxymizer settings with an SPO2 of 91. ABG pending. Remaining management as above. - Time Time Spent with patient: 35 or more minutes Medications reviewed and adjusted accordingly: Yes Anticipated Discharge Disposition: Home, Self Care Anticipated Discharge Timeframe: TBD
[2020-04-10 14:37] LABS: ARTERIAL BLOOD BASE EXCESS 3.7 mmol/L; ARTERIAL BLOOD H2CO3 1.41 mmol/L (1.05-1.35); ARTERIAL BLOOD HCO3 28.9 mmol/L (20-24); ARTERIAL BLOOD O2 SATURATION 89.7 % (94-98); ARTERIAL BLOOD PCO2 46.7 mmHg (35-45); ARTERIAL BLOOD PH 7.41 (7.35-7.45); ARTERIAL BLOOD PO2 56.9 mmHg (80-100); ARTERIAL BLOOD TOTAL CO2 30.4 mmol/L (21-25)
[2020-04-10 14:39] LABS: ARTERIAL BLOOD FIO2 100%
[2020-04-10] MEDS: METOPROLOL SUCCINATE 25 MG TAB.SR.24H PO SCH (21:07)
[2020-04-11] MEDS: IPRATROPIUM/ALBUTEROL 0.5-2.5 MG/3 ML AMPUL NEB SCH ×4 (02:20→19:34)
[2020-04-11 04:52] LABS: HEMATOCRIT 30.7 % (36.0-47.0); HEMOGLOBIN 10.2 g/dL (12.0-15.5); MEAN CORPUSCULAR HEMOGLOBIN 31.7 pg (27.0-33.4); MEAN CORPUSCULAR HGB CONC 33.2 g/dL (32.0-36.0); MEAN CORPUSCULAR VOLUME 96 fl (80-97); PLATELET COUNT 193 10^3/uL (150-450); RED BLOOD COUNT 3.21 10^6/uL (3.72-5.28); RED CELL DISTRIBUTION WIDTH 17.1 % (11.5-14.0); WHITE BLOOD COUNT 4.9 10^3/uL (4.0-10.5)
[2020-04-11 05:14] LABS: ALKALINE PHOSPHATASE 171 U/L (38-126); ANION GAP 5 (5-19); ASPARTATE AMINO TRANSFERASE 28 U/L (14-36); BILIRUBIN,DIRECT 0.2 mg/dL (0.0-0.4); BILIRUBIN,TOTAL 0.3 mg/dL (0.2-1.3); BLOOD UREA NITROGEN 11 mg/dL (7-20); C-REACTIVE PROTEIN 47.6 mg/L (<10.0); CALCIUM 9.3 mg/dL (8.4-10.2); CARBON DIOXIDE 39 mmol/L (22-30); CHLORIDE 93 mmol/L (98-107); GLUCOSE 193 mg/dL (75-110); POTASSIUM 3.9 mmol/L (3.6-5.0)
[2020-04-11 06:41] LABS: ARTERIAL BLOOD BASE EXCESS 10.4 mmol/L; ARTERIAL BLOOD H2CO3 1.64 mmol/L (1.05-1.35); ARTERIAL BLOOD HCO3 36.1 mmol/L (20-24); ARTERIAL BLOOD O2 SATURATION 94.2 % (94-98); ARTERIAL BLOOD PCO2 54.5 mmHg (35-45); ARTERIAL BLOOD PH 7.44 (7.35-7.45); ARTERIAL BLOOD PO2 69.8 mmHg (80-100); ARTERIAL BLOOD TOTAL CO2 37.8 mmol/L (21-25)
[2020-04-11 06:45] LABS: ARTERIAL BLOOD FIO2 100%
[2020-04-11] MEDS ORDERED: FUROSEMIDE INJ/PF 20 MG/2 ML SDV ONE (08:17)
[2020-04-11] MEDS: PANTOPRAZOLE SODIUM 40 MG TABLET.DR PO SCH ×2 (08:21→15:14)
[2020-04-11] MEDS ORDERED: FUROSEMIDE INJ/PF 20 MG/2 ML SDV IV ONE ×2 (08:45→14:30)
[2020-04-11] MEDS: TRAMADOL HCL 50 MG TABLET PO PRN (11:53)
[2020-04-11] MEDS: METOPROLOL SUCCINATE 25 MG TAB.SR.24H PO SCH ×2 (11:54→22:33)
[2020-04-11] MEDS: ASCORBIC ACID 500 MG TABLET PO SCH ×2 (11:54→17:48)
[2020-04-11] MEDS: CHOLECALCIFEROL (D3) 1,000 UNIT (25 MCG) TABLET PO SCH (11:54)
[2020-04-11] MEDS: BUPRENORPHINE HCL 2 MG SUBLINGUAL TABLET SL SCH ×2 (11:54→22:31)
[2020-04-11] MEDS: HYDROXYZINE PAMOATE 50 MG CAPSULE PO SCH ×3 (11:54→17:48)
[2020-04-11] MEDS: THIAMINE HCL 100 MG TABLET PO SCH (11:55)
[2020-04-11] MEDS: MULTIVITAMIN TABLET PO SCH (11:55)
[2020-04-11] MEDS: FOLIC ACID 1 MG TABLET PO SCH (11:55)
[2020-04-11] MEDS: ZINC SULFATE 220 MG CAPSULE PO SCH (11:55)
[2020-04-11] MEDS: DIVALPROEX SODIUM 250 MG TAB.SR.24H PO SCH ×2 (11:56→17:48)
[2020-04-11] MEDS: BUSPIRONE HCL 10 MG TABLET PO SCH ×2 (11:56→22:33)
[2020-04-11] MEDS: RISPERIDONE 0.5 MG TAB.RAPDIS PO SCH ×2 (11:56→17:48)
[2020-04-11] MEDS: POTASSIUM CHLORIDE 10 MEQ TABLET.ER PO SCH (11:57)
[2020-04-11] MEDS: MIDODRINE HCL 5 MG TABLET PO SCH ×3 (11:57→17:49)
[2020-04-11] MEDS: DEXAMETHASONE SOD PHOS INJ 10 MG/1 ML VIAL IV SCH (11:57)
[2020-04-11] MEDS: DILTIAZEM HCL 240 MG CAPSULE.CR PO SCH (11:57)
[2020-04-11] MEDS: ENOXAPARIN SODIUM INJ 80 MG/0.8 ML DISP.SYRIN SUBCUT SCH ×2 (11:58→22:30)
[2020-04-11] MEDS: FLUTICASONE/VILANTEROL 200-25 MCG/DOSE IH SCH (12:01)
[2020-04-11] MEDS: COLLAGENASE CLOSTRIDIUM HIST. OINT 30 GM TOP SCH (12:01)
--- NOTE | 2020-04-11 14:02 | PDOC PROGRESS REPORT ---
Subjective Date:: 04/11/20 Subjective:: Patient is a 59-year-old -[place] female presented to [facility] emergency department via EMS on 03/24/2020 with altered mental status. Briefly, patient was admitted to the ICU for altered mental status, hypotension, and bradycardia. Required short dopamine drip with improvement of her bradycardia and hypotension. She experienced DT secondary to alcoholic w ithdrawal in ICU. Transferred out of ICU 03/27. On antibiotics for Enterococcus bacteremia. Patient was seen on morning rounds; she was sitting up to the edge of the bed eating lunch. She is noted to be very fatigued and appears to fall asleep multiple times while sitting up. She is on supplemental oxygen via oxymizer at 12lpm. She utilizes 3-4lpm at home. She complains primarily of fatigue, but also reports increased shortness of breath and productive cough. She denies fever, chills, chest pain, palpitations, abdominal pain, nausea, vomiting, diarrhea. She has no other questions or concerns at this time. No concerns per nursing. Reason For Visit: SHOCK ABTUNDED HENRY ACUTE KIDNEY INJURY Physical Exam Vital Signs: Temp Pulse Resp BP Pulse Ox 97.7 F 76 26 H 116/69 95 04/11/20 13:02 04/11/20 13:02 04/11/20 13:43 04/11/20 13:02 04/11/20 13:43 Intake & Output 04/10/20 04/11/20 04/12/20 06:59 06:59 06:59 Intake Total 1180 838 Output Total 800 700 Balance 380 138 Weight 73.3 kg 73 kg General appearance: PRESENT: mild distress, well-developed, well-nourished - Overweight, other - Acutely ill-appearing Head exam: PRESENT: atraumatic, normocephalic Eye exam: PRESENT: conjunctiva pink, EOMI, PERRLA. ABSENT: scleral icterus Ear exam: PRESENT: normal external ear exam Mouth exam: PRESENT: moist, tongue midline Respiratory exam: PRESENT: crackles - Bibasilar, prolonged expiratory phas, symmetrical, tachypnea, other - Max Oxymizer settings. ABSENT: rales, rhonchi, wheezes Cardiovascular exam: PRESENT: irregular rhythm, +S1, +S2. ABSENT: diastolic murmur, rubs, systolic murmur Pulses: PRESENT: normal dorsalis pedis pul Vascular exam: PRESENT: normal capillary refill Extremities exam: PRESENT: pedal edema, +2 edema - Pitting edema BLE. ABSENT: calf tenderness, clubbing Neurological exam: PRESENT: alert, awake, oriented to person, oriented to place, oriented to time, oriented to situation, CN II-XII grossly intact, other - Fatigue. ABSENT: motor sensory deficit Psychiatric exam: PRESENT: appropriate affect, normal mood. ABSENT: homicidal ideation, suicidal ideation Skin exam: PRESENT: dry, intact, warm. ABSENT: cyanosis, rash Results Laboratory Results: 04/11/20 04:30 04/11/20 04:30 04/10/20 04/11/20 04/11/20 14:15 04:30 04:30 WBC 4.9 RBC 3.21 L Hgb 10.2 L Hct 30.7 L MCV 96 MCH 31.7 MCHC 33.2 RDW 17.1 H Plt Count 193 Carbonic Acid 1.41 H HCO3/H2CO3 Ratio 20:1 ABG pH 7.41 ABG pCO2 46.7 H ABG pO2 56.9 L ABG HCO3 28.9 H ABG O2 Saturation 89.7 L ABG Base Excess 3.7 FiO2 100% Sodium 137.1 Potassium 3.9 Chloride 93 L Carbon Dioxide 39 H Anion Gap 5 BUN 11 Creatinine 0.34 L Est GFR ( Amer) > 60 Glucose 193 H Calcium 9.3 Ferritin 320.00 H Total Bilirubin 0.3 AST 28 Alkaline Phosphatase 171 H C-Reactive Protein 47.6 H Total Protein 7.0 Albumin 3.0 L 04/11/20 06:25 WBC RBC Hgb Hct MCV MCH MCHC RDW Plt Count Carbonic Acid 1.64 H HCO3/H2CO3 Ratio 22:1 ABG pH 7.44 ABG pCO2 54.5 H ABG pO2 69.8 L ABG HCO3 36.1 H ABG O2 Saturation 94.2 ABG Base Excess 10.4 FiO2 100% Sodium Potassium Chloride Carbon Dioxide Anion Gap BUN Creatinine Est GFR ( Amer) Glucose Calcium Ferritin Total Bilirubin AST Alkaline Phosphatase C-Reactive Protein Total Protein Albumin 03/24/20 03/24/20 03/25/20 20:10 20:10 02:47 Creatine Kinase 32 Troponin I 0.097 0.114 NT-Pro-B Natriuret Pep 2480 H 03/25/20 03/25/20 03/25/20 02:47 08:06 14:42 Creatine Kinase Troponin I 0.134 0.166 NT-Pro-B Natriuret Pep 2080 H 03/26/20 03/27/20 04:11 04:10 Creatine Kinase Troponin I NT-Pro-B Natriuret Pep 3290 H 6880 H Impressions: Head CT 03/24/20 20:09 IMPRESSION: 1. No acute intracranial abnormalities. Nonspecific, mild white matter change most likely small vessel ischemic disease, age indeterminate. 2. CT is insensitive for early evaluation of acute stroke. If there is clinical concern for acute ischemia, an MRI may be considered. 3. Suspected acute on chronic sinus disease. Chest X-Ray 04/07/20 00:00 IMPRESSION: Left lower lung opacity, suspicious for pneumonia. Assessment and Plan - Diagnosis (1) Acute on chronic respiratory failure with hypoxia Is this a current diagnosis for this admission?: Yes Plan: Worsened; now on maximum oxymizer settings with mild hypoxia. Has developed hypercapnia. Fatigued. Secondary to COPD, lung cancer, and CHF now complicated by COVID-19 pneumonia. IV furosemide today to cautiously diurese; BLE edema and bilateral crackles on exam. Supplemental O2 and BiPAP. Remaining management as below (2) COVID-19 Is this a current diagnosis for this admission?: Yes Plan: Now requiring Oxymizer to maintain saturations. COVID positive. D-dimer is 2.62 CRP 197.5, LDH 1.82. Continue full dose Lovenox r/t d-dimer results. Patient was previously on chronic anticioagulation but this was discontinued r/t alcohol abuse/falls. Provide supplemental oxygen as needed maintain saturations greater than 89%. As needed nebulizer treatments. Ivermectin 12 mg x2 doses Continue dexamethasone. Zinc, vitamin D, vitamin C, and melatonin supplementation. Encourage pulmonary toilet. Isolation precautions. (3) Pneumonia Is this a current diagnosis for this admission?: Yes Plan: COVID positive. D/C IV antibiotics. Management as above. (4) Tachycardia Is this a current diagnosis for this admission?: Yes Plan: Resolved. Patient briefly with a heart rate of 150. This rapidly resolved after IV Lopressor. Patient was previously on Toprol-XL. Continue Toprol-XL 25 mg twice daily. Continue diltiazem CD 240 mg daily. (5) Enterococcal bacteremia Is this a current diagnosis for this admission?: Yes Plan: Completed course of IV Vancomycin. Has been on vancomycin since 03/26/2020. - Blood cultures 03/28 clearance of Enterococcus. - BC 03/30 WGTD. - Changed to daptomycin 03/30. Id consulted as above. - Vancomycin restarted 03/31, dosing as per pharmacist. - EOT for bacteremia will be 04/07/20 (6) Coagulase negative Staphylococcus bacteremia Is this a current diagnosis for this admission?: Yes Plan: Resolved. Completed course of IV vancomycin. 3 out of 4 BCx bottles have come back with Methicillin resistant coagulase- negative staph suggestive of true bacteremia. Infection presented despite vancomycin since 03/26. Switched to daptomycin 03/31, discontinued 04/01 as per ID recommendations. ID consulted, note reviewed case discussed recommendations as follows: - "Blood culture positive for Enterococcus faecalis, source could be the foot vs aspiration as well." - "Vancomycin is adequate in the setting of penicillin allergy." - "Recommend to switch back to vancomycin to treat for 14 days for bacteremia." Vancomycin restarted 03/31, dosing as per pharmacist. - EOT for bacteremia will be 04/07/20 (7) Alcohol withdrawal Qualifiers: Complication of substance-induced condition: with unspecified complication Qualified Code(s): F10.239 - Alcohol dependence with withdrawal, unspecified Is this a current diagnosis for this admission?: Yes Plan: Resolved. Continue medications as per psychs recommendations: - Continue respiradone - Continue Buspar 5mg BID - Continue Depakote ER 250mg BID (8) Alcoholic encephalopathy Is this a current diagnosis for this admission?: Yes Plan: Patient at her baseline now. Continue thiamine and folate supplementation. (9) CHF (congestive heart failure) Qualifiers: Heart failure type: unspecified Heart failure chronicity: unspecified Qualified Code(s): I50.9 - Heart failure, unspecified Is this a current diagnosis for this admission?: Yes Plan: Without PND or orthopnea. - Continue home dose po lasix. - Continue current dose of Cardizem. Echo (03/25): LV EF 55% with mild concentric LVH. Grade 1/4 diastolic dysfunction. RA mild to moderately dilated. RV mild to moderately dilated. Mild mitral regurgitation, RVSP 50-55mmHg. (10) COPD (chronic obstructive pulmonary disease) Qualifiers: COPD type: COPD with acute exacerbation Qualified Code(s): J44.1 - Chronic obstructive pulmonary disease with (acute) exacerbation Is this a current diagnosis for this admission?: Yes Plan: Prednisone x5 days completed. CXR; hyperinflated lungs with obstructive lung disease, without changes form previous. Continue breathing treatments as needed. Continue supplemental oxygen as needed to maintain saturations 89 to 92% (11) Lung cancer Qualifiers: Laterality: left Lung location: overlapping sites Qualified Code(s): C34.82 - Malignant neoplasm of overlapping sites of left bronchus and lung Is this a current diagnosis for this admission?: Yes Plan: Outpt f/u with Dr. Robertson (12) Pressure ulcer of dorsum of right foot Is this a current diagnosis for this admission?: Yes Plan: Wound care on board, dressing changes as per their recommendations. (13) Pulmonary hypertension Is this a current diagnosis for this admission?: Yes (14) Septic shock Is this a current diagnosis for this admission?: Yes Plan: Resolved. (15) Tobacco abuse Is this a current diagnosis for this admission?: Yes Plan: Nicotine patch. (16) Lactic acid acidosis Is this a current diagnosis for this admission?: Yes Plan: Resolved. (17) Hypomagnesemia Is this a current diagnosis for this admission?: Yes Plan: Resolved. (18) Diarrhea Qualifiers: Diarrhea type: unspecified type Qualified Code(s): R19.7 - Diarrhea, unspecified Is this a current diagnosis for this admission?: Yes Plan: Resolved without intervention. - Time Time Spent with patient: 35 or more minutes Medications reviewed and adjusted accordingly: Yes Anticipated Discharge Disposition: Home with Home Health Anticipated Discharge Timeframe: TBD
[2020-04-12] MEDS: IPRATROPIUM/ALBUTEROL 0.5-2.5 MG/3 ML AMPUL NEB SCH ×3 (02:13→16:49)
[2020-04-12 06:06] LABS: HEMATOCRIT 34.6 % (36.0-47.0); HEMOGLOBIN 11.1 g/dL (12.0-15.5); MEAN CORPUSCULAR HEMOGLOBIN 30.6 pg (27.0-33.4); MEAN CORPUSCULAR HGB CONC 32.2 g/dL (32.0-36.0); MEAN CORPUSCULAR VOLUME 95 fl (80-97); PLATELET COUNT 223 10^3/uL (150-450); RED BLOOD COUNT 3.64 10^6/uL (3.72-5.28); RED CELL DISTRIBUTION WIDTH 16.9 % (11.5-14.0)
[2020-04-12 06:18] LABS: WHITE BLOOD COUNT 11.8 10^3/uL (4.0-10.5)
[2020-04-12 06:39] LABS: ALBUMIN 3.2 g/dL (3.5-5.0); ALKALINE PHOSPHATASE 155 U/L (38-126); ASPARTATE AMINO TRANSFERASE 32 U/L (14-36); BILIRUBIN,DIRECT 0.4 mg/dL (0.0-0.4); BILIRUBIN,TOTAL 0.5 mg/dL (0.2-1.3); BLOOD UREA NITROGEN 13 mg/dL (7-20); CALCIUM 9.3 mg/dL (8.4-10.2); CHLORIDE 90 mmol/L (98-107); GLUCOSE 102 mg/dL (75-110); POTASSIUM 3.7 mmol/L (3.6-5.0); TOTAL PROTEIN 7.4 g/dL (6.3-8.2)
[2020-04-12 06:53] LABS: ANION GAP 12 (5-19); CARBON DIOXIDE 38 mmol/L (22-30)
[2020-04-12] MEDS ORDERED: SUCCINYLCHOLINE CHLORIDE INJ 200 MG/10 ML VIAL ONE (09:40)
[2020-04-12] MEDS ORDERED: VECURONIUM BROMIDE INJ 10 MG VIAL IV ONE (09:40)
[2020-04-12 10:47] LABS: ARTERIAL BLOOD BASE EXCESS 15.2 mmol/L; ARTERIAL BLOOD FIO2 90%; ARTERIAL BLOOD H2CO3 1.66 mmol/L (1.05-1.35); ARTERIAL BLOOD HCO3 40.9 mmol/L (20-24); ARTERIAL BLOOD O2 SATURATION 85.4 % (94-98); ARTERIAL BLOOD PCO2 55.3 mmHg (35-45); ARTERIAL BLOOD PH 7.49 (7.35-7.45); ARTERIAL BLOOD PO2 47.5 mmHg (80-100); ARTERIAL BLOOD TOTAL CO2 42.6 mmol/L (21-25)
[2020-04-12] MEDS ORDERED: METHYLPREDNISOLONE INJ 125 MG/2 ML SDV IV ONE (11:00)
[2020-04-12] MEDS ORDERED: FUROSEMIDE INJ/PF 20 MG/2 ML SDV IV ONE ×3 (11:00→16:00)
[2020-04-12] MEDS: FLUTICASONE/VILANTEROL 200-25 MCG/DOSE IH SCH (11:04)
[2020-04-12] MEDS: PANTOPRAZOLE SODIUM 40 MG TABLET.DR PO SCH (11:04)
[2020-04-12] MEDS: RISPERIDONE 0.5 MG TAB.RAPDIS PO SCH (11:05)
[2020-04-12] MEDS: FOLIC ACID 1 MG TABLET PO SCH (11:05)
[2020-04-12] MEDS: POTASSIUM CHLORIDE 10 MEQ TABLET.ER PO SCH (11:05)
[2020-04-12] MEDS: COLLAGENASE CLOSTRIDIUM HIST. OINT 30 GM TOP SCH (11:05)
[2020-04-12] MEDS: BUSPIRONE HCL 10 MG TABLET PO SCH (11:05)
[2020-04-12] MEDS: DILTIAZEM HCL 240 MG CAPSULE.CR PO SCH (11:05)
[2020-04-12] MEDS: ENOXAPARIN SODIUM INJ 80 MG/0.8 ML DISP.SYRIN SUBCUT SCH (11:05)
[2020-04-12] MEDS: DIVALPROEX SODIUM 250 MG TAB.SR.24H PO SCH (11:05)
[2020-04-12] MEDS: MIDODRINE HCL 5 MG TABLET PO SCH ×2 (11:05→15:47)
[2020-04-12] MEDS: BUPRENORPHINE HCL 2 MG SUBLINGUAL TABLET SL SCH (11:05)
[2020-04-12] MEDS: MULTIVITAMIN TABLET PO SCH (11:06)
[2020-04-12] MEDS: THIAMINE HCL 100 MG TABLET PO SCH (11:06)
[2020-04-12] MEDS: METOPROLOL SUCCINATE 25 MG TAB.SR.24H PO SCH (11:06)
[2020-04-12] MEDS: HYDROXYZINE PAMOATE 50 MG CAPSULE PO SCH ×2 (11:06→15:47)
[2020-04-12] MEDS: ASCORBIC ACID 500 MG TABLET PO SCH (11:07)
[2020-04-12] MEDS: ZINC SULFATE 220 MG CAPSULE PO SCH (11:07)
[2020-04-12] MEDS: CHOLECALCIFEROL (D3) 1,000 UNIT (25 MCG) TABLET PO SCH (11:07)
[2020-04-12 12:22] VITALS: BP 138/94
[2020-04-12] MEDS ORDERED: VANCOMYCIN HCL 0 MG in DEXTROSE 5%-WATER 250 ML IV NR (13:15)
[2020-04-12 14:11] LABS: ARTERIAL BLOOD BASE EXCESS 11.9 mmol/L; ARTERIAL BLOOD FIO2 100%; ARTERIAL BLOOD H2CO3 1.52 mmol/L (1.05-1.35); ARTERIAL BLOOD O2 SATURATION 79.8 % (94-98); ARTERIAL BLOOD PCO2 50.6 mmHg (35-45); ARTERIAL BLOOD PH 7.48 (7.35-7.45); ARTERIAL BLOOD PO2 41.5 mmHg (80-100); ARTERIAL BLOOD TOTAL CO2 38.6 mmol/L (21-25)
--- NOTE | 2020-04-12 14:22 | RADIOLOGY REPORT (SQ) ---
EXAM DESCRIPTION: CHEST SINGLE VIEW IMAGES COMPLETED DATE/TIME: 04/12/2020 2:10 pm REASON FOR STUDY: hypoxia COMPARISON: 04/07/2029 NUMBER OF VIEWS: One view. TECHNIQUE: Single frontal radiographic image of the chest acquired. LIMITATIONS: Positioning. Overlying support apparatus. FINDINGS: LUNGS AND PLEURA: Increasing airspace disease in the right lower lobe. Unchanged left low er lobe airspace disease. MEDIASTINUM AND HEART: Stable heart size and mediastinal structures. SUPPORT DEVICES: Appropriate location without change. BONY STRUCTURES: No acute findings. HARDWARE: None. OTHER: No other significant finding. IMPRESSION: Developing pneumonia or aspiration in the right lower lobe. Reading location - IP/workstation name: [email or web address]
[2020-04-12 14:30] LABS: HEMATOCRIT 32.3 % (36.0-47.0); HEMOGLOBIN 10.6 g/dL (12.0-15.5); MEAN CORPUSCULAR HEMOGLOBIN 30.9 pg (27.0-33.4); MEAN CORPUSCULAR HGB CONC 32.7 g/dL (32.0-36.0); MEAN CORPUSCULAR VOLUME 94 fl (80-97); PLATELET COUNT 182 10^3/uL (150-450); RED BLOOD COUNT 3.43 10^6/uL (3.72-5.28); RED CELL DISTRIBUTION WIDTH 16.8 % (11.5-14.0); WHITE BLOOD COUNT 15.7 10^3/uL (4.0-10.5)
[2020-04-12 14:34] LABS: APPEARANCE,URINE CLEAR; BILIRUBIN,URINE NEGATIVE (NEGATIVE); COLOR,URINE YELLOW; GLUCOSE, URINE NEGATIVE (NEGATIVE); KETONES,URINE NEGATIVE (NEGATIVE); PROTEIN,URINE NEGATIVE (NEGATIVE); URINE SPECIFIC GRAVITY 1.009; UROBILINOGEN,URINE NEGATIVE mg/dL (<2.0)
[2020-04-12 14:46] LABS: ALBUMIN 2.8 g/dL (3.5-5.0); ALKALINE PHOSPHATASE 135 U/L (38-126); ANION GAP 7 (5-19); ASPARTATE AMINO TRANSFERASE 33 U/L (14-36); BILIRUBIN,DIRECT 0.4 mg/dL (0.0-0.4); BILIRUBIN,TOTAL 0.5 mg/dL (0.2-1.3); BLOOD UREA NITROGEN 17 mg/dL (7-20); CALCIUM 8.9 mg/dL (8.4-10.2); CARBON DIOXIDE 38 mmol/L (22-30); CHLORIDE 92 mmol/L (98-107); GLUCOSE 86 mg/dL (75-110); POTASSIUM 3.7 mmol/L (3.6-5.0); TOTAL PROTEIN 6.7 g/dL (6.3-8.2)
[2020-04-12 14:56] LABS: ABSOLUTE LYMPHOCYTES# (MANUAL) 0.5 10^3/uL (0.5-4.7); ABSOLUTE MONOCYTES # (MANUAL) 0.5 10^3/uL (0.1-1.4); BASOPHILS % (MANUAL) 0 % (0-2); EOSINOPHILS % (MANUAL) 0 % (0-6); LYMPHOCYTES % (MANUAL) 3 % (13-45); MONOCYTES % (MANUAL) 3 % (3-13); SEGMENTED NEUTROPHILS % (MAN) 82 % (42-78); TOTAL CELLS COUNTED 100; TROPONIN I 0.022 ng/mL
[2020-04-12 14:57] LABS: ANISOCYTOSIS 1+
[2020-04-12 14:58] LABS: BAND NEUTROPHILS % (MANUAL) 12 % (3-5); PLATELET COMMENT ADEQUATE; PLATELET LARGE PRESENT
[2020-04-12] MEDS ORDERED: FUROSEMIDE INJ/PF 20 MG/2 ML SDV ONE (15:10)
[2020-04-12] MEDS ORDERED: MIDAZOLAM 2 MG/2 ML INJ IV ONE ×2 (15:10→15:16)
[2020-04-12] MEDS ORDERED: MIDAZOLAM HCL 50 MG/100 ML RTUINJ IV PRN (15:11)
[2020-04-12] MEDS ORDERED: MIDAZOLAM 2 MG/2 ML INJ ONE (15:11)
[2020-04-12 15:20] LABS: C-REACTIVE PROTEIN 197.6 mg/L (<10.0); CREATINE KINASE < 20 U/L (30-135)
[2020-04-12] MEDS ORDERED: NOREPINEPHRINE BITARTRATE INJ/PF 4 MG/4 ML SDV IV ONE ×2 (15:35→15:59)
[2020-04-12] MEDS ORDERED: DEXTROSE 5%-WATER 250 ML with NOREPINEPHRINE BITARTRATE 4 MG IV PRN ×2 (15:39)
--- NOTE | 2020-04-12 15:48 | RADIOLOGY REPORT (SQ) ---
EXAM DESCRIPTION: CHEST SINGLE VIEW IMAGES COMPLETED DATE/TIME: 04/12/2020 3:27 pm REASON FOR STUDY: INTUBATION, TUBE PLACEMENT COMPARISON: Earlier the same day. NUMBER OF VIEWS: One view. TECHNIQUE: Single frontal radiographic image of the chest acquired. LIMITATIONS: None. FINDINGS: LUNGS AND PLEURA: Stable appearance. MEDIASTINUM AND HEART: Stable heart size and mediastinal structures. SUPPORT DEVICES: Interval placement of nasogastric tube extending into the left upper quadrant. Endo tracheal tube placement with tip between thoracic inlet and gale. BONY STRUCTURES: No acute findings. HARDWARE: None. OTHER: No other significant finding. IMPRESSION: Good position of support apparatus. No pneumothorax. Reading location - IP/workstation name: [email or web address]
--- NOTE | 2020-04-12 15:49 | PDOC TRANSFER SUMMARY ---
General Admission Date/PCP: 03/24/20 23:33 GALA FINNEY MD Admission Date: 03/24/20 Transfer Date: 04/12/20 Accepting Facility: [facility] Resuscitation Status: Full Code - Transfer Diagnosis (1) Acute on chronic respiratory failure with hypoxia and hypercapnia Is this a current diagnosis for this admission?: Yes (2) Pneumonia due to COVID-19 virus Is this a current diagnosis for this admission?: Yes (3) Atrial fibrillation with rapid ventricular response Is this a current diagnosis for this admission?: Yes (4) Enterococcal bacteremia Is this a current diagnosis for this admission?: Yes (5) Lactic acid acidosis Is this a current diagnosis for this admission?: Yes (6) Obtunded Is this a current diagnosis for this admission?: Yes (7) Pulmonary hypertension Is this a current diagnosis for this admission?: Yes (8) Tachycardia Is this a current diagnosis for this admission?: Yes (9) Acute on chronic diastolic (congestive) heart failure Is this a current diagnosis for this admission?: Yes - Transfer Medications Home Medications: Albuterol Sulfate [Albuterol Sulfate Hfa] 1 puff IH Q6HP PRN 09/04/19 Tussionex 5 ml PO Q8HP PRN 09/04/19 Hydroxyzine Pamoate [Vistaril 50 mg Capsule] 50 mg PO TID 12/26/19 Pantoprazole Sodium [Protonix [address] Tablet] 40 mg PO QAM 03/02/20 Fluticasone/Salmeterol [Advair 500-50 Diskus 14 Dose/Diskus] 1 inh IH Q12 Nicotine [Nicoderm 21 mg/24 Hr Transderm Patch] 1 each TD DAILYP PRN 03/25/20 Transfer Medications: Current Medications Acetaminophen (Acetaminophen 325 Mg Tablet) 975 mg PO Q6HP PRN PRN Reason: PAIN Stop: 04/27/20 10:50 Last Admin: 04/10/20 01:51 Dose: 975 mg Documented by: Albuterol (Albuterol Sulfate Hfa (90 Mcg/Puff) 8 Gm Mdi) 2 puff IH Q4HP PRN PRN Reason: FOR WHEEZING Stop: 05/05/20 12:06 Last Admin: 04/07/20 05:49 Dose: 2 puff Documented by: Albuterol/Ipratropium (Ipratropium/Albuterol 0.5-2.5 Mg/3 Ml Ampul) 3 ml NEB RTQ6 [facility] Stop: 04/24/20 01:59 Last Admin: 04/12/20 08:19 Dose: 3 ml Documented by: Ascorbic Acid (Ascorbic Acid 500 Mg Tablet) 500 mg PO BID [facility] Stop: 05/07/20 17:59 Last Admin: 04/12/20 11:07 Dose: Not Given Documented by: Benzonatate (Benzonatate 100 Mg Capsule) 100 mg PO Q8HP PRN PRN Reason: COUGH Stop: 05/04/20 09:26 Buspirone HCl (Buspirone Hcl 10 Mg Tablet) 5 mg PO Q12 [facility] Stop: 05/01/20 21:59 Last Admin: 04/12/20 11:05 Dose: Not Given Documented by: Cholecalciferol (Cholecalciferol (D3) 1,000 Unit (25 Mcg) Tablet) 2,000 unit PO DAILY [facility] Stop: 05/08/20 09:59 Last Admin: 04/12/20 11:07 Dose: Not Given Documented by: Collagenase (Collagenase Clostridium Hist. Oint 30 Gm) 1 applic TOP DAILY [facility] Stop: 04/25/20 15:59 Last Admin: 04/12/20 11:05 Dose: Not Given Documented by: Diltiazem HCl (Diltiazem Hcl 240 Mg Capsule.Cr) 240 mg PO DAILY [facility] Stop: 05/06/20 10:59 Last Admin: 04/12/20 11:05 Dose: Not Given Documented by: Divalproex Sodium (Divalproex Sodium 250 Mg Tab.Sr.24h) 250 mg PO BID [facility] Stop: 05/01/20 18:59 Last Admin: 04/12/20 11:05 Dose: Not Given Documented by: Enoxaparin Sodium (Enoxaparin Sodium Inj 80 Mg/0.8 Ml Disp.Syrin) 70 mg SUBCUT Q12 [facility] Stop: 05/07/20 21:59 Last Admin: 04/12/20 11:05 Dose: Not Given Documented by: Fluticasone/Vilanterol (Fluticasone/Vilanterol 200-25 Mcg/Dose) 1 inh IH DAILY [facility] Stop: 04/28/20 09:59 Last Admin: 04/12/20 11:04 Dose: Not Given Documented by: Folic Acid (Folic Acid 1 Mg Tablet) 1 mg PO DAILY [facility] Stop: 04/28/20 09:59 Last Admin: 04/12/20 11:05 Dose: Not Given Documented by: Guaifenesin (Guaifenesin Syrp 200 Mg/10 Ml Udc) 200 mg PO QIDP PRN PRN Reason: COUGH Stop: 04/27/20 14:06 Last Admin: 04/09/20 15:17 Dose: 200 mg Documented by: Hydroxyzine Pamoate (Hydroxyzine Pamoate 50 Mg Capsule) 50 mg PO TID [facility] Stop: 05/10/20 09:59 Last Admin: 04/12/20 11:06 Dose: Not Given Documented by: Vancomycin HCl / Dextrose 250 mls @ 0 mls/hr IV .PHARMACY TO DOSE NR Stop: 04/19/20 13:14 Cefepime HCl (Maxipime Rtu 1 Gm/D5w 50 Ml Premix Bag) 1 gm in 50 mls @ 100 mls/hr IV Q12 [facility] Stop: 04/19/20 21:59 Methylprednisolone Sodium Succinate (Methylprednisolone Inj 40 Mg/1 Ml Sdv) 40 mg IV Q8A [facility] Stop: 05/12/20 17:59 Metoprolol Succinate (Metoprolol Succinate 25 Mg Tab.Sr.24h) 25 mg PO Q12 [facility] Stop: 05/10/20 21:59 Last Admin: 04/12/20 11:06 Dose: Not Given Documented by: Midodrine (Midodrine Hcl 5 Mg Tablet) 10 mg PO TID [facility] Stop: 05/08/20 09:59 Last Admin: 04/12/20 11:05 Dose: Not Given Documented by: Multivitamins (Multivitamin Tablet) 1 tab PO DAILY [facility] Stop: 04/28/20 09:59 Last Admin: 04/12/20 11:06 Dose: Not Given Documented by: Nicotine (Nicotine 21 Mg/24 Hr Patch.Td24) 1 each TD DAILYP PRN PRN Reason: SMOKING CESSATION Stop: 04/27/20 17:11 Pantoprazole Sodium (Pantoprazole Sodium 40 Mg Tablet.Dr) 40 mg PO BIDACBS [facility] Stop: 04/29/20 15:59 Last Admin: 04/12/20 11:04 Dose: Not Given Documented by: Tussionex Suspension (Hydrocodone- Chlorpheniramine) 1 dose PO Q8HP PRN PRN Reason: COUGH Stop: 05/06/20 17:08 Last Admin: 04/10/20 09:58 Dose: 5 ml Documented by: Potassium Chloride (Potassium Chloride 10 Meq Tablet.Er) 20 meq PO DAILY [facility] Stop: 04/28/20 09:59 Last Admin: 04/12/20 11:05 Dose: Not Given Documented by: Risperidone (Risperidone 0.5 Mg Tab.Rapdis) 0.25 mg PO BID [facility] Stop: 04/27/20 17:59 Last Admin: 04/12/20 11:05 Dose: Not Given Documented by: Sodium Chloride (Normal Saline Flush 2.5 Ml Disp.Syrin) 2.5 ml IV Q8 [facility] Stop: 04/25/20 21:59 Last Admin: 04/12/20 05:13 Dose: Not Given Documented by: Thiamine HCl (Thiamine Hcl 100 Mg Tablet) 100 mg PO DAILY [facility] Stop: 04/28/20 09:59 Last Admin: 04/12/20 11:06 Dose: Not Given Documented by: Tramadol HCl (Tramadol Hcl 50 Mg Tablet) 50 mg PO Q8HP PRN PRN Reason: FOR PAIN Stop: 04/13/20 09:58 Last Admin: 04/11/20 11:53 Dose: 50 mg Documented by: Zinc Sulfate (Zinc Sulfate 220 Mg Capsule) 220 mg PO DAILY [facility] Stop: 05/08/20 09:59 Last Admin: 04/12/20 11:07 Dose: Not Given Documented by: - Allergies Allergies/Adverse Reactions: aspirin [Aspirin] Allergy (Verified 10/06/18 17:54) NSAIDS (Non-Steroidal Anti-Inflamma [Nsaids] Allergy (Verified 10/06/18 17:54) Penicillins Allergy (Verified 10/06/18 17:54) - Diet/Activity Discharge Diet: Cardiac Hospital Course Hospital Course: Mrs. Little Trejo is a 59 year old woman with a past medical history of severe COPD (on 3L O2 at baseline), lung cancer (Port-a-cath in place, not on treatment), chronic diastolic CHF, pulmonary hypertension, alcohol abuse, tobacco abuse, atrial fibrillation, chronic pain, opioid dependence (on Subutex) who initially presented to [facility] emergency department via EMS on 03/24/2020 with altered mental status. Per EMS report, they were called to the house for concerns of hypoxia. On arrival, they found her altered and only responsive to noxious stimuli. She was placed on a non-rebreather and transported to ED. In the ED, she was obtunded and unable to participate in exam. She was hypoxic and hypotensive. Labs were notable for elevated BUN/Cr and mild lactic acidosis. ABG showed mild resp iratory acidosis with minimally elevated pCO2, which is her baseline. She was admitted to the ICU and started on broad spectrum IV antibiotics and vasopressors. Initial BCx were positive for E. faecalis, for which she completed a 7 day course of Vancomycin therapy. UCx was not obtained on admission, but source of bacteremia was thought to be . Repeat BCx have all been negative. HENRY and hyperkalemia resolved with IVF hydration. Vasopressors were discontinued after 24 hours. She was downgraded to the floor. Hospital course was complicated by prolonged alcohol withdrawal. She has a known history of significant alcohol consumption. On 04/06, she was back down to her home 3L O2 via NC and doing well overall. Plan was for potential discharge home the following day. On 04/07, she suddenly developed worsening hypoxemia, requiring 6 L O2 via NC. She reported increased cough, difficulty breathing and was exhibiting tachypnea and tachycardia. Chest x-ray showed LLL pneumonia and she was hypoxemic on ABG. Covid-19 testing was positive on 04/07 (she had no prior tests performed during hospital stay). She was started on treatment with dexamethasone 6 mg IV daily, ivermectin 12 mg x2 doses, zinc, vitamin D, vitamin C, and melatonin supplementation. Hospital course was further complicated by development of atrial fibrillation on RVR for which she has been on therapeutic lovenox therapy since 04/07. By 04/11/2020, she was improving overall. She was eating and walking independently. She appeared slightly volume overloaded on exam and was started on Lasix 40 mg IV daily. On the morning of 04/12, Mrs. Trejo was again found to have worsening hypoxemia. She was becoming increasingly more altered. She was obtunded on exam, withdrawing from pain in all 4 extremities. ABG showed severe hypoxemia as well as increasing hypercapnia. She was placed on BIPAP at 100% FiO2 but saturations remained in the 80s. She developed tachypnea, with RR in 30-40s. Hat Ironer was consulted for intubation, which was felt to be appropriate, but as we do not have any ICU beds, transfer request was made to [facility]. Patient was graciously accepted by Dr. Tammy Wilkerson. Repeat labs showed: leukocytosis (WBC 16), ABG: pH 7.4, pCO2 50, pO2 41, HCO3 37, troponin 0.022, lactic acid 1.4 and CRP 200. Repeat BCx, UCx and stool culture obtained. CXR concerning for RLL aspiration PNA. Intubation was attempted several times by ED physician, ICU attending and an anesthesiologist before successful intubation could be achieved. During the intubation, she developed bradycardia and then PEA arrest, requiring Epi x2. After intubation, frothy red respiratory secretions noted. She remained hypotensive at 75/53 (MAP 60), so she was started on levophed prior to transport. Greater than 30 minutes of critical care time spent in the care of this patient. Physical Exam Vital Signs: Temp Pulse Resp BP Pulse Ox 97.3 F 117 H 38 H 138/94 H 88 L 04/12/20 11:21 04/12/20 11:21 04/12/20 12:08 04/12/20 11:21 04/12/20 12:08 Intake & Output 04/11/20 04/12/20 04/13/20 06:59 06:59 06:59 Intake Total 838 320 Output Total 700 2700 Balance 138 -2380 Weight 73 kg 69.3 kg General appearance: PRESENT: other - intubated Eye exam: ABSENT: scleral icterus Mouth exam: PRESENT: moist Neck exam: PRESENT: JVD Respiratory exam: PRESENT: accessory muscle use, crackles, rhonchi, tachypnea Cardiovascular exam: PRESENT: tachycardia GI/Abdominal exam: PRESENT: normal bowel sounds, soft. ABSENT: firm, guarding, rebound, rigid, tenderness Rectal exam: ABSENT: deferred Gentrourinary exam: PRESENT: indwelling catheter Extremities exam: PRESENT: +1 edema Neurological exam: PRESENT: altered Skin exam: ABSENT: jaundice, rash Results Laboratory Results: 04/12/20 05:00 04/12/20 05:00 04/12/20 04/12/20 04/12/20 05:00 05:00 10:08 WBC 11.8 H D RBC 3.64 L Hgb 11.1 L Hct 34.6 L MCV 95 MCH 30.6 MCHC 32.2 RDW 16.9 H Plt Count 223 Carbonic Acid 1.66 H HCO3/H2CO3 Ratio 24:1 ABG pH 7.49 H ABG pCO2 55.3 H ABG pO2 47.5 L ABG HCO3 40.9 H ABG O2 Saturation 85.4 L ABG Base Excess 15.2 FiO2 90% Sodium 139.8 Potassium 3.7 Chloride 90 L Carbon Dioxide 38 H Anion Gap 12 BUN 13 Creatinine 0.40 L Est GFR ( Amer) > 60 Glucose 102 Calcium 9.3 Total Bilirubin 0.5 AST 32 Alkaline Phosphatase 155 H Total Protein 7.4 Albumin 3.2 L 03/24/20 03/24/20 03/25/20 20:10 20:10 02:47 Creatine Kinase 32 Troponin I 0.097 0.114 NT-Pro-B Natriuret Pep 2480 H 03/25/20 03/25/20 03/25/20 02:47 08:06 14:42 Creatine Kinase Troponin I 0.134 0.166 NT-Pro-B Natriuret Pep 2080 H 03/26/20 03/27/20 04/12/20 04:11 04:10 05:00 Creatine Kinase Troponin I NT-Pro-B Natriuret Pep 3290 H 6880 H 2660 H Impressions: Head CT 03/24/20 20:09 IMPRESSION: 1. No acute intracranial abnormalities. Nonspecific, mild white matter change most likely small vessel ischemic disease, age indeterminate. 2. CT is insensitive for early evaluation of acute stroke. If there is clinical concern for acute ischemia, an MRI may be considered. 3. Suspected acute on chronic sinus disease. Chest X-Ray 04/07/20 00:00 IMPRESSION: Left lower lung opacity, suspicious for pneumonia. Plan Discharge Plan: transfer to [facility] Time Spent: Greater than 30 Minutes
[2020-04-12 16:09] LABS: INTERNATIONAL RATION (INR) 0.99; PROTHROMBIN TIME 13.3 SEC (11.4-15.4)
[2020-04-12 16:26] LABS: D-DIMER 4.48 ug/mL (0.00-0.50)
[2020-04-12] MEDS ORDERED: MAGNESIUM SULFATE/D5W 2 GM/200 ML RTUPB IV ONE (16:32)
[2020-04-12] MEDS ORDERED: POTASSI CL 20 MEQ/50 ML RIDER 40 MEQ/100 ML RTUPB IV ONE (16:33)
[2020-04-12] MEDS ORDERED: CALCIUM GLUCONATE 1000 MG/10 ML INJ IV ONE (17:09)
[2020-04-12] MEDS ORDERED: METHYLPREDNISOLONE INJ 40 MG/1 ML SDV IV SCH (18:00)
[2020-04-12] MEDS ORDERED: VANCOMYCIN HCL 1,000 MG in DEXTROSE 5%-WATER 250 ML IV SCH (18:00)
--- NOTE | 2020-04-12 18:05 | Death Summary ---
Summary Date : 04/12/20 Time of :: 17:45 Autopsy: No Resuscitation Status: Comfort Measures Only - Final Diagnosis (1) Acute on chronic respiratory failure with hypoxia and hypercapnia Is this a current diagnosis for this admission?: Yes (2) Pneumonia due to COVID-19 virus Is this a current diagnosis for this admission?: Yes (3) Atrial fibrillation with rapid ventricular response Is this a current diagnosis for this admission?: Yes (4) Enterococcal bacteremia Is this a current diagnosis for this admission?: Yes (5) Lactic acid acidosis Is this a current diagnosis for this admission?: Yes (6) Obtunded Is this a current diagnosis for this admission?: Yes (7) Pulmonary hypertension Is this a current diagnosis for this admission?: Yes (8) Tachycardia Is this a current diagnosis for this admission?: Yes (9) Acute on chronic diastolic (congestive) heart failure Is this a current diagnosis for this admission?: Yes Hospital Course:: Mrs. Little Trejo is a 59 year old woman with a past medical history of severe COPD (on 3L O2 at baseline), lung cancer (Port-a-cath in place, not on treatment), chronic diastolic CHF, pulmonary hypertension, alcohol abuse, tobacco abuse, atrial fibrillation, chronic pain, opioid dependence (on Subutex) who initially presented to [facility] emergency department via EMS on 03/24/2020 with altered mental status. Per EMS report, they were called to the house for concerns of hypoxia. On arrival, they found her altered and only responsive to noxious stimuli. She was placed on a non-rebreather and transported to ED. In the ED, she was obtunded and unable to participate in exam. She was hypoxic and hypotensive. Labs were notable for elevated BUN/Cr and mild lactic acidosis. ABG showed mild respiratory acidosis with minimally elevated pCO2, which is her baseline. She was admitted to the ICU and started on broad spectrum IV antibiotics and vasopressors. Initial BCx were positive for E. faecalis, for which she completed a 7 day course of Vancomycin therapy. UCx was not obtained on admission, but source of bacteremia was thought to be . Repeat BCx have all been negative. HENRY and hyperkalemia resolved with IVF hydration. Vasopressors were discontinued after 24 hours. She was downgraded to the floor. Hospital course was complicated by prolonged alcohol withdrawal. She has a known history of significant alcohol consumption. On 04/06, she was back down to her home 3L O2 via NC and doing well overall. Plan was for potential discharge home the following day. On 04/07, she suddenly developed worsening hypoxemia, requiring 6 L O2 via NC. She reported increased cough, difficulty breathing and was exhibiting tachypnea and tachycardia. Chest x-ray showed LLL pneumonia and she was hypoxemic on ABG. Covid-19 testing was positive on 04/07 (she had no prior tests performed during hospital stay). She was started on treatment with dexamethasone 6 mg IV daily, ivermectin 12 mg x2 doses, zinc, vitamin D, vitamin C, and melatonin supplementation. Hospital course was further complicated by development of atrial fibrillation on RVR for which she has been on therapeutic lovenox therapy since 04/07. By 04/11/2020, she was improving overall. She was eating and walking inde pendently. She appeared slightly volume overloaded on exam and was started on Lasix 40 mg IV daily. On the morning of 04/12, Mrs. Trejo was again found to have worsening hypoxemia. She likely had an unwitnessed aspiration event. She was becoming increasingly more altered. She was obtunded on exam, but still withdrawing from pain in all 4 extremities. ABG showed severe hypoxemia as well as increasing hypercapnia. She was placed on BIPAP at 100% FiO2 but saturations remained in the 80s. She developed tachypnea, with RR in 30-40s. Field Logistics Coordinator was consulted for intubation. Repeat labs showed: leukocytosis (WBC 16), ABG: pH 7.4, pCO2 50, pO2 41, HCO3 37, troponin 0.022, lactic acid 1.4 and CRP 200. Repeat BCx, UCx and stool culture obtained. CXR concerning for RLL PNA. Intubation was attempted several times by ED physician, ICU attending and an anesthesiologist before successful intubation could be achieved. During the intubation, she developed bradycardia and then PEA arrest, requiring Epi x1. After intubation, frothy red respiratory secretions noted. She remained hypotensive at 75/53 (MAP 60), so she was started on levophed ggt. Due to ongoing hypotension, she required starting an epi ggt. Both pressors were maxed out. She had two more arrests, requiring a single round of CPR+epi each other. Unfortunately, her oxygen saturations never fabrice above 80%, even on the ventilator. She likely developed ARDS. Multiple goals of care discussions were held with her , who eventually declined any further aggressive interventions and requested to transition to comfort care measures. She was pronounced at 1745. Greater than 120 minutes of critical care time spent in the care of this patient.
[2020-04-12] MEDS ORDERED: CEFEPIME 1 GM/D5W RTU 1 GM/50 ML RTUPB IV SCH (22:00)
[2020-04-12] MEDS ORDERED: FUROSEMIDE INJ/PF 20 MG/2 ML SDV IV SCH (22:00)
[2020-04-13 11:47] LABS: PATH REVIEW PATHOLOGIST REVIEWED
== END 2020-04-12 17:45 | DRG 871 ==
LOC: ER 19:57 → EH 23:33 → ICU 03-25 00:05 → 4N 03-27 19:26 → 3W 04-07 17:39 → EH 04-12 14:34
PROVIDERS: ADMIT Internal Medicine Critical Care Medicine; ATTEND Registered Nurse
PROC: B24BZZ4 Ultrasonography of Heart with Aorta, Transesophageal (ICD-10-PCS; 2020-03-25)
PROC: HZ2ZZZZ Detoxification Services for Substance Abuse Treatment (ICD-10-PCS; 2020-03-27)
PROC: 5A09357 Assistance with Respiratory Ventilation, Less than 24 Consecutive Hours, Continuous Positive Airway Pressure (ICD-10-PCS; principal; 2020-04-11)
DX: A41.81 Sepsis due to Enterococcus (principal); U07.1 COVID-19; J96.21 Acute and chronic respiratory failure with hypoxia; J96.22 Acute and chronic respiratory failure with hypercapnia; J12.82 Pneumonia due to coronavirus disease 2019; I50.33 Acute on chronic diastolic (congestive) heart failure; R65.21 Severe sepsis with septic shock; E87.2 Acidosis; J44.0 Chronic obstructive pulmonary disease with (acute) lower respiratory infection; F11.20 Opioid dependence, uncomplicated; N17.9 Acute kidney failure, unspecified; R44.0 Auditory hallucinations; F10.231 Alcohol dependence with withdrawal delirium; J44.1 Chronic obstructive pulmonary disease with (acute) exacerbation; F10.221 Alcohol dependence with intoxication delirium; I27.20 Pulmonary hypertension, unspecified; R00.0 Tachycardia, unspecified; G89.29 Other chronic pain; I95.9 Hypotension, unspecified; R00.1 Bradycardia, unspecified; E87.5 Hyperkalemia; I48.91 Unspecified atrial fibrillation; F32.9 Major depressive disorder, single episode, unspecified; R44.1 Visual hallucinations; G31.2 Degeneration of nervous system due to alcohol; I10 Essential (primary) hypertension; I73.9 Peripheral vascular disease, unspecified; K21.9 Gastro-esophageal reflux disease without esophagitis; I27.81 Cor pulmonale (chronic); L97.519 Non-pressure chronic ulcer of other part of right foot with unspecified severity; R19.7 Diarrhea, unspecified; E83.42 Hypomagnesemia; A49.02 Methicillin resistant Staphylococcus aureus infection, unspecified site; Z85.118 Personal history of other malignant neoplasm of bronchus and lung; Z99.81 Dependence on supplemental oxygen; Z88.6 Allergy status to analgesic agent; Z88.0 Allergy status to penicillin; Z79.899 Other long term (current) drug therapy; Z79.51 Long term (current) use of inhaled steroids
CPT/HCPCS: 36415; 36600; 70450; 71045; 71046; 80048; 80053; 80202; 80307; 81001; 82140; 82150; 82533; 82550; 82565; 82728; 82803; 82962; 83605; 83615; 83690; 83735; 83880; 84100; 84439; 84443; 84484; 85025; 85027; 85379; 85610; 85652; 85730; 86140; 87040; 87045; 87070; 87077; 87086; 87150; 87186; 87205; 89055; 93005; 93010; 93306; 94002; 94660; 94667; 94668; 94799; 96360; 99222; 99285; 99291; 0241U; C9113; C9803; J0171; J0330; J0571; J0692; J0696; J0878; J1100; J1265; J1630; J1644; J1650; J1940; J2060; J2560; J2930; J3370; J3475; J3490; J7030; J7060; J7120; J7512